=== PATIENT | female | born 1980 | race Caucasian/White ===

== ENCOUNTER 2018-06-29 19:22 | Inpatient (IN) | payer BC, SELFPAY ==
[2018-06-29 22:54] VITALS: BMI 61.7
[2018-06-29] MEDS ORDERED: ONDANSETRON 4 MG/2 ML VIAL IV PRN (23:26)
--- NOTE | 2018-06-29 23:46 | P.HP ---
Certification for Inpatient Patient admitted to: Observation With expected LOS: <2 Midnights Practitioner: I am a practitioner with admitting privileges, knowledge of patient current condition, hospital course, and medical plan of care. Services: Services provided to patient in accordance with Admission requirements found in Title 42 Section 412.3 of the Code of Federal Regulations Patient History Date of Service: 06/29/18 Reason for admission: Abdominal pain History of Present Illness: Ms Yepez is a 37-year-old woman with history of hypertension, diabetes mellitus types 2, obesity, who start about 3 days ago with diffuse abdominal pain which later was localized on right upper quadrant. The pain was associated with nausea but no vomiting. She denied fever or chills. She also denied diarrhea. [facility] be [facility], lab work showed leukocytosis 13.[address] scan abdomen and pelvis showed not acute abnormality. The patient was transferred to our facility for dilated admission due to severe abdominal pain, in order to be evaluated by specialist. Allergies ondansetron [From Zofran] Allergy (Verified 06/29/18 22:33) Itching/Hives/Rash prednisone Allergy (Verified 06/29/18 22:33) Itching/Hives/Rash sulfamethoxazole [From Bactrim] Allergy (Verified 06/29/18 22:33) Hives/Rash trimethoprim [From Bactrim] Allergy (Verified 06/29/18 22:33) Hives/Rash Home medications list reviewed: Yes Home Medications: Levothyroxine [Synthroid] 75 mcg PO [id number] 06/29/18 Lisinopril/Hydrochlorothiazide [Zestoretic 20-25 mg Tablet] 1 tab PO DAILY 06/29 Metformin HCl [Glucophage] 500 mg PO BID 06/29/18 glipiZIDE [Glipizide] 1 tab PO BID 06/29/18 - Past Medical/Surgical History Has patient received pneumonia vaccine in the past: No Diabetic: Yes -: HTN -: DM type 2 -: Hyperthyroidism -: Morbid obesity -: D and C -: Cholecystectomy -: CS -: Injections in the spine - Family History Mother -: Hypertension, Diabetes - Social History Smoking Status: Never smoker Alcohol use: No CD- Drugs: No Caffeine use: Yes Place of Residence: Home Review of Systems 10-point ROS is otherwise unremarkable Physical Examination - Vital Signs Temperature: 97.9 F Blood Pressure: 129/58 Pulse: 79 Respirations: 16 Pulse Ox (%): 99 - Physical Exam General: Alert, In no apparent distress HEENT: Atraumatic, PERRLA, Mucous membr. moist/pink, EOMI, Sclerae nonicteric Neck: Supple, 2+ carotid pulse no bruit, No LAD, Without JVD or thyroid abnormality Respiratory: Clear to auscultation bilaterally, Normal air movement Cardiovascular: Regular rate/rhythm, Normal S1 S2 Gastrointestinal: Normal bowel sounds, Tenderness Musculoskeletal: No tenderness Integumentary: No rashes Neurological: Normal speech, Normal strength at 5/5 x4 extr, Normal tone, Normal affect Lymphatics: No axilla or inguinal lymphadenopathy Assessment and Plan - Problems (Diagnosis) (1) Abdominal pain Current Visit: Yes Status: Acute Qualifiers: Abdominal location: right upper quadrant Qualified Code(s): R10.11 - Right upper quadrant pain (2) Diabetes mellitus Current Visit: Yes Status: Acute Qualifiers: Diabetes mellitus type: type 2 Diabetes mellitus fdc insulin use: without exterminator helper use Diabetes mellitus complication status: with unspecified complications Qualified Code(s): E11.8 - Type 2 diabetes mellitus with unspecified complications (3) Hypertension Current Visit: Yes Status: Acute Qualifiers: Hypertension type: essential hypertension Qualified Code(s): I10 - Essential (primary) hypertension (4) Obesity Current Visit: Yes Status: Acute Qualifiers: Obesity type: unspecified obesity type Obesity classification: unspecified obesity classification Serious obesity comorbidity presence: unspecified whether serious comorbidity present Qualified Code(s): E66.9 - Obesity, unspecified - Plan The patient will be admitted to the hospital under observation due to severe abdominal pain without obvious etiology, will order laboratory work, surgery evaluation, IV fluids and symptomatic medication for pain and nausea. - Advance Directives Does patient have a Living Will: No Does patient have a Durable POA for Healthcare: No - Code Status/Comfort Care Code Status Assessed: Yes Code Status: Full Code
[2018-06-30] MEDS: NA CHLORIDE 0.9% 1,000 ML IV SCH ×3 (00:09→20:26)
[2018-06-30] MEDS: MORPHINE 2 MG/ML SYR IV PRN ×6 (00:10→20:25)
[2018-06-30] MEDS: PROMETHAZINE 25 MG/ML VIAL IV PRN ×4 (00:10→20:25)
[2018-06-30] MEDS: INSULIN -REGULAR HUMAN 50 UNIT/0.5 ML ML SQ SCH ×5 (00:10→21:48)
[2018-06-30 02:07] LABS: Urine Appearance CLEAR; Urine Bilirubin NEGATIVE (NEG); Urine Blood TRACE (NEG); Urine Color YELLOW; Urine Glucose 3+ (NEG); Urine Protein TRACE (NEG); Urine Specific Gravity >=1.030 (1.005-1.030); Urine Urobilinogen 0.2 mg/dL (0.2-1.0)
[2018-06-30 02:11] LABS: Urine Microscopic Reflex ORDER UMIC
[2018-06-30 02:17] LABS: Urine Mucus 1+ /HPF (NONE SEEN)
[2018-06-30 02:18] LABS: Urine Bacteria 20-50 /HPF (<20); Urine Culture Reflex Order REFLEXED; Urine RBC <5 /HPF (NONE SEEN)
[2018-06-30] MEDS ORDERED: PROMETHAZINE 25 MG/ML VIAL IV ONE (03:00)
[2018-06-30 06:06] LABS: Absolute Lymphocytes (CBC) 1.4 K/uL (0.7-4.9); Absolute Neutrophil 11.8 K/uL (1.8-8.0); Basophils % 0.3 % (0-1.3); Eosinophils % 0.1 % (0-4.4); Hematocrit 36.9 % (36.0-45.0); MCH 28.5 pg (27.0-35.0); MCV 85.7 fL (80-100); Monocytes % 6.7 % (3.3-12.3); RBC Red Blood Cell Count 4.31 M/uL (3.86-4.86)
[2018-06-30 06:11] LABS: Albumin 3.4 g/dL (3.4-5.0); Bilirubin Total 0.8 mg/dL (0.2-1.0); Protein, Total 7.5 g/dL (6.4-8.2)
[2018-06-30] MEDS: CEFTRIAXONE/SWI 1gm 1 GM/10 ML SYR IV SCH (09:07)
[2018-06-30] MEDS: HYDRALAZINE HCL 20 MG/ML VIAL IV PRN ×2 (10:34→17:39)
[2018-06-30] MEDS: PANTOPRAZOLE 40MG TABLET PO SCH (12:07)
--- NOTE | 2018-06-30 14:13 | PN ---
Date of Progress Note: 06/30/2018 Subjective: The patient was seen and examined. Chart reviewed and case discussed with RN and Dr. William julian. The patient still reports abdominal pain, no nausea or vomiting. Review of Systems: Negative except as above. Medications: List reviewed. Objective: Vital Signs: Temperature 99.1, heart rate 115, blood pressure 137/80, respirations 16, O 2 95% on room air. General: Awake, alert, and oriented x3, in some mild distress, morbidly obese ill-appearing female. CV: S1, S2. Peripheral pulses present. Regular rate and rhythm. No murmurs. Respiratory: Clear to auscultation bilaterally. No wheezing or stridor. Gastrointestinal: Abdomen is soft. Mild tenderness to palpation in the epigastric region. No rebou nd or guarding. Bowel sounds positive. Extremities: No clubbing, cyanosis, or edema. Neuro: Nonfocal. Laboratory Data: Sodium 132, potassium 4, chloride 103, CO2 23, BUN 10, creatinine 0.8, glucose was 76, calcium 8.7. WBC 14.3, H and H 12.3 and 36.9, platelets 249, neutrophils 82.9%. UA has 20-50 ba cteria, negative nitrite, negative leukocyte esterase, less than 5 wbcs. Urine culture pending. Assessment And Plan: A 37-year-old female with: 1.Generalized abdominal pain, likely secondary to viral or bacterial enteritis. Appreciate Dr. Gustavo galvez's input. We will continue to treat with conservative management. We will advance diet to clear liquids and see if the patient can tolerate liquids before moving on to solids. We will continue to monitor closely. 2.Asymptomatic bacteriuria. We will start on Rocephin. Urine cultures are pending. 3.Diabetes mellitus type 2 without long-term use of insulin with hyperglycemia. We will continue Ac cu-Cheks and sliding scale insulin. 4.Essential hypertension. We will resume home medications as appropriate. 5.Morbid obesity. 6.Hypothyroidism. We will continue Synthroid. 7.Neutrophilic leukocytosis, likely secondary to acute phase reactant are possibly from gastroenteri tis or bacteriuria. 8.We will continue to monitor. Likely discharge in the next 24 to 48 hours. /BLU Voice ID: [id number] Report ID: [id number]
--- NOTE | 2018-06-30 15:43 | CON ---
Date of Consultation: 06/30/2018 Brief History Of Present Illness: The patient is a 37-year-old female with history of hype rtension, diabetes, severe obesity, who started having abdominal pain 2-3 days ago after eating [employer]. She has been eating a fast-food diet quite a bit and she had pain located in the epigast sergio right upper quadrant area. She had nausea and no vomiting. She has had some loose bowel movemen ts as well. She has diffuse abdominal pain. No fever, no chills, and she came to [facility] an d was evaluated at that time in the ER. She had a CT scan of the abdomen and pelvis, which was repor roxanna to have no acute abnormalities. She was transferred to this facility for the abdominal pain. Past Medical History: Hypertension, diabetes, and hypothyroidism, morbid obesity. Past Surgical History: D and C, cholecystectomy, injection to the spine. Allergies: TO ZOFRAN, PREDNISONE, BACTRIM. Home Medications: Include levothyroxine, Zestoretic, Glucophage, and glipizide. Family History: Her mother has hypertension, diabetes. Social History: She denies smoking, alcohol, or recreational drug use. Physical Examination: Vital Signs: At time of my examination, her BMI is 61.7. Her blood pressure was 137/80, pulse 115, respiratory rate 16, temperature 99.1. General: She is awake, alert, oriented. Psychiatric: She is appropriate conversive. HEENT: She is normocephalic. Sclerae icteric. Mucous membranes are moist. Oropharynx is clear. Neck: Supple. No JVD. Chest: Normal expansion and excursion. Cardiovascular: Regular rate and rhythm. Abdomen: Obese. Diffuse tenderness. No focal peritonitis. No rebound. No guarding. Negative Mur phy sign. Negative psoas sign. Extremities: No clubbing, cyanosis, or edema. Skin: Warm and dry. Laboratory Data: Reveals white blood cell count of 14.3, hemoglobin 12.3, hematocrit 36.9, platelet count is 249, neutrophils are 82%. Her sodium of 136, potassium 4.0, chloride 103, carbon dioxide 22 , BUN 10, creatinine 0.8, glucose is 276. Total bilirubin 0.8. AST 43, ALT 44, alkaline phosphatase is 76. UA is essentially -3+ ketones and 20/50 bacteria, glucose 3+. She had a CT scan performed o f the abdomen and pelvis at outside facility. I do not have these records. However, it is reported to me the patient had no acute abnormalities, when I spoke to the ER physician regarding this yesterd ay. Assessment And Plan: This is a 37-year-old female who comes in with signs of gastroenteritis. 1.IV fluid hydration. 2.Antibiotic coverage. 3.Serial abdominal exams. 4.N.p.o. status and advanced clear liquids when patient feels nausea has improved to such she can to lerate liquids. 5.Serial abdominal exams. 6.Review medical records from outside facility when available. Thank you for this interesting consult. NED/BLU Voice ID: [id number] Report ID: [id number]
[2018-06-30] MEDS: glipiZIDE 5 MG TAB PO SCH (16:38)
[2018-06-30] MEDS ORDERED: KETOROLAC 30 MG/ML INJ IV PRN (21:20)
[2018-06-30] MEDS ORDERED: TRAMADOL HCL 50 MG TAB PO PRN (22:20)
[2018-07-01] MEDS: PROMETHAZINE 25 MG/ML VIAL IV PRN ×3 (01:32→20:41)
[2018-07-01] MEDS: MORPHINE 2 MG/ML SYR IV PRN ×6 (01:33→20:40)
[2018-07-01] MEDS: HYDRALAZINE HCL 20 MG/ML VIAL IV PRN ×2 (01:33→13:39)
[2018-07-01] MEDS: NA CHLORIDE 0.9% 1,000 ML IV SCH ×3 (05:21→20:56)
[2018-07-01] MEDS: PANTOPRAZOLE 40MG TABLET PO SCH (05:35)
[2018-07-01] MEDS: LEVOTHYROXINE SOD 0.075 MG TAB PO SCH (05:35)
[2018-07-01] MEDS: INSULIN -REGULAR HUMAN 50 UNIT/0.5 ML ML SQ SCH ×4 (07:30→20:56)
[2018-07-01] MEDS ORDERED: HOME MED 1 EA UNK (Lisinopril/Hydrochlorothiazide [Zestoretic 20-25 Mg Tablet] 1 TAB) PO SCH (09:00)
[2018-07-01] MEDS ORDERED: LISINOPRIL 20 MG TAB PO SCH (09:00)
[2018-07-01] MEDS: glipiZIDE 5 MG TAB PO SCH ×2 (09:12→16:58)
[2018-07-01] MEDS: hydroCHLOROthiazide 25 MG TAB PO SCH (09:12)
[2018-07-01] MEDS: CEFTRIAXONE/SWI 1gm 1 GM/10 ML SYR IV SCH (09:16)
--- NOTE | 2018-07-01 09:20 | P.PN ---
Subjective Date of Service: 07/01/18 Chief Complaint: Abdominal pain Subjective: Improving (Patient continues to improve, but still has some abdominal pain, and occasional vomiting. Her pain is improved though by report , continues to have diarrhea.) Physical Examination - Vital Signs Temperature: 98.0 F Blood Pressure: 172/82 Pulse: 102 Respirations: 18 Pulse Ox (%): 98 - Physical Exam General: Alert, In no apparent distress, Cooperative Respiratory: Clear to auscultation bilaterally Gastrointestinal: Other (soft, mild global TTP, ND) Assessment And Plan - Current Problems (Diagnosis) (1) Enteritis Current Visit: Yes Status: Acute Plan: - continue IV hydration - continue PO liquid diet, advance as tolerated - supportive care - pain control - antiemetics - ambulate - no surgical issues, will sign off for now. (2) Abdominal pain Onset Date: 06/30/18 Current Visit: Yes Status: Acute Qualifiers: Abdominal location: right upper quadrant Qualified Code(s): R10.11 - Right upper quadrant pain
[2018-07-01] MEDS: LISINOPRIL 20 MG TAB PO SCH (16:00)
--- NOTE | 2018-07-01 22:05 | PN ---
Subjective: The patient seen and examined. Chart reviewed and case discussed with RN and Dr. Valerie maldonado. The patient is still having some nausea and vomiting. Abdominal pain is improved, however, not r esolved. Review of Systems: Negative except as above. Medications: List reviewed. Physical Examination: Vital Signs: Temperature 97.4, heart rate 75, blood pressure 205/85, respirations 18, O2 98% on room air. General: Awake, alert, oriented x3. Some mild distress. Ill-appearing female, morbidly obese. CV: S1, S2. No murmurs. Peripheral pulses present. Respiratory: Moving air well bilaterally with no wheezing or stridor. Gastrointestinal: Abdomen is soft, not as distended, still having some mild tenderness to palpation. No rebound or guarding. Bowel sounds are positive. Extremities: No clubbing, cyanosis. The patient does have some pedal edema. Neurologic: Nonfocal. Laboratory Data: Glucose level ranging from 217 to 222. Assessment And Plan: A 37-year-old female with: 1.Generalized abdominal pain, likely secondary to bacterial enteritis or possible viral enteritis. Continue conservative management. The patient unable to tolerate clear liquid diet. We will continu e with IV fluid hydration and antibiotics. 2.Asymptomatic bacteriuria. Continue Rocephin. Urine culture shows mixed chelsy. 3.Morbid obesity. BMI 61.7. 4.Uncontrolled hypertension. We will adjust home medications. 5.Diabetes mellitus type 2 with long-term use of insulin with hyperglycemia. We will adjust sliding scale insulin. We will need to add basal insulin. Check hemoglobin A1c. 6.Hypothyroidism. Continue Synthroid. 7.Gastrointestinal and deep venous thrombosis prophylaxis addressed. SCDs and early persistent ambu lation. Plan: Continue to monitor. Likely discharge in next 24 to 48 hours if the patient able to tolerate diet and symptoms improve. SA/MODL Voice ID: [id number] Report ID: [id number]
[2018-07-02] MEDS: MORPHINE 2 MG/ML SYR IV PRN ×6 (00:36→22:29)
[2018-07-02] MEDS: PROMETHAZINE 25 MG/ML VIAL IV PRN (05:29)
[2018-07-02] MEDS: PANTOPRAZOLE 40MG TABLET PO SCH (05:29)
[2018-07-02] MEDS: LEVOTHYROXINE SOD 0.075 MG TAB PO SCH (05:29)
[2018-07-02 06:11] LABS: Absolute Neutrophil 9.6 K/uL (1.8-8.0); Basophils % 0.5 % (0-1.3); Eosinophils % 1.3 % (0-4.4); Hematocrit 37.2 % (36.0-45.0); Lymphocytes % 21.9 % (15.3-44.8); MCH 27.9 pg (27.0-35.0); MCV 86.3 fL (80-100); MPV 9.9 fL (7.6-11.3); Monocytes % 7.1 % (3.3-12.3); RBC Red Blood Cell Count 4.31 M/uL (3.86-4.86)
[2018-07-02 06:27] LABS: ALT/SGPT 57 U/L (12-78); AST/SGOT 93 U/L (15-37); Albumin 3.1 g/dL (3.4-5.0); Alkaline Phosphatase 69 U/L (45-117); BUN Blood Urea Nitrogen 6 mg/dL (7-18); Bicarbonate 26 mmol/L (21-32); Bilirubin Total 0.6 mg/dL (0.2-1.0); Glucose Level 157 mg/dL (74-106); Magnesium 2.4 mg/dL (1.8-2.4); Phosphorus 2.6 mg/dL (2.5-4.9); Sodium Level 140 mmol/L (136-145)
[2018-07-02] MEDS ORDERED: POTASSIUM CL SA 10 MEQ TAB PO ONE ×2 (06:31→21:00)
[2018-07-02] MEDS: INSULIN -REGULAR HUMAN 50 UNIT/0.5 ML ML SQ SCH ×4 (07:30→21:05)
[2018-07-02] MEDS: CEFTRIAXONE/SWI 1gm 1 GM/10 ML SYR IV SCH (09:00)
[2018-07-02] MEDS: LISINOPRIL 20 MG TAB PO SCH (09:27)
[2018-07-02] MEDS: hydroCHLOROthiazide 25 MG TAB PO SCH (09:28)
[2018-07-02] MEDS: glipiZIDE 5 MG TAB PO SCH ×2 (09:28→17:00)
[2018-07-02] MEDS: NA CHLORIDE 0.9% 1,000 ML IV SCH ×2 (10:55→21:05)
[2018-07-02] MEDS: METOCLOPRAMIDE 10 MG/2mL INJ IV SCH ×2 (10:55→18:06)
[2018-07-02] MEDS: PIPER/TAZO/NS 3.375gm 3.375 GM/100 ML BAG IVPB SCH ×2 (13:47→19:47)
--- NOTE | 2018-07-02 13:50 | RAD REPORT ---
EXAM DESCRIPTION: CTAbdomen Pelvis W Contrast - 07/02/2018 1:34 pm CLINICAL HISTORY: Abdominal pain. abd pain COMPARISON: CT ABD PELVIS W CONTRAST dated 04/07/2011; CTABD PELVIS W CONTRAST dated 02/27/2007 TECHNIQUE: Biphasic CT imaging of the abdomen and pelvis was performed with 100 ml non-ionic IV cont rast. All CT scans are performed using dose optimization technique as appropriate and may include automated exposure control or mA/KV adjustment according to patient size. FINDINGS: The lung bases are clear.Cholecystectomy clips. The liver is diffusely fatty. The spleen, pancreas, adrenal glands and kidneys are within normal limi ts. No bowel obstruction, free air, free fluid or abscess. The appendix is not identified as a discrete structure, however, no secondary findings of appendicitis are identified. No evidence of significan t lymphadenopathy. Moderate lower lumbar degenerative changes. IMPRESSION: No acute intra-abdominal or pelvic finding. Fatty liver.
--- NOTE | 2018-07-02 16:03 | PN ---
Date of Progress Note: 07/02/2018 History: The patient seen and examined. Chart reviewed and case discussed with RN. The patient sti ll having significant amount of abdominal discomfort and not able to tolerate her diet. The patient had another episode of emesis. This was the first since yesterday afternoon. Review of Systems: Negative except as above. Medications: List reviewed. Physical Examination: Vital Signs: Temperature 97.9, heart rate 84, blood pressure 189/85, respiration 20, O2 100% on room air. General: Awake, alert, oriented x3, ill-appearing female, morbidly obese. CV: S1 and S2. Peripheral pulses present. Respiratory: Moving air well bilaterally. No wheezing. Gastrointestinal: Abdomen is soft. No distention. Mild tenderness to palpation, improved. Bowel s ounds present. Extremities: No clubbing, cyanosis, or edema. Neurologic: Nonfocal. Laboratory Data: Sodium 140, potassium 3, chloride 105, CO2 26, BUN 6, creatinine 0.7, glucose 157, calcium 8.2, albumin 3.1. WBC 13.9, H and H 12 and 37.2, platelets 268, neutrophils 69%. Urine cult ure growing mixed chelsy. Assessment And Plan: A 37-year-old female with: 1.Generalized abdominal pain, not improving. 2.Gastroenteritis, likely related to the atrial versus viral etiology. We will adjust IV antibiotic s. The patient is unable to tolerate clear liquid diet. We will obtain a CT scan of the abdomen and pelvis with contrast, may be secondary to diabetic gastroparesis. We will give trial of Reglan and essentially no GI is available. 3.Asymptomatic bacteriuria. Antibiotic adjusted. Urine culture growing mixed chelsy. 4.Morbid obesity, BMI 61.7. 5.Intractable nausea and vomiting. We will give trial of Reglan. 6.Uncontrolled hypertension, likely related to pain as her blood pressures are lower at night. We w ill continue to use hydralazine. 7.Diabetes mellitus type 2 with long-term use of insulin with hyperglycemia. Sliding scale insulin adjusted to aggressive. Blood glucose is better controlled today. Hemoglobin A1c of 9.6%, may need add basal insulin if still uncontrolled. 8.Hypothyroidism. Continue Synthroid. 9.Gastrointestinal and deep venous thrombosis prophylaxes, addressed with SCDs and persistent ambula tion. Plan: Follow with CT abdomen and pelvis. Trial of Reglan. We will continue to monitor closely. SA/MODAna Voice ID: [id number] Report ID: [id number]
[2018-07-03] MEDS: METOCLOPRAMIDE 10 MG/2mL INJ IV SCH ×3 (00:07→12:00)
[2018-07-03] MEDS: PIPER/TAZO/NS 3.375gm 3.375 GM/100 ML BAG IVPB SCH ×2 (02:31→11:00)
[2018-07-03] MEDS: MORPHINE 2 MG/ML SYR IV PRN ×3 (02:37→10:51)
[2018-07-03 06:21] LABS: Absolute Lymphocytes (CBC) 2.6 K/uL (0.7-4.9); Absolute Monocytes 0.9 K/uL (0.1-1.3); Absolute Neutrophil 5.9 K/uL (1.8-8.0); Basophils % 0.6 % (0-1.3); Hematocrit 34.4 % (36.0-45.0); Lymphocytes % 26.9 % (15.3-44.8); MCH 28.5 pg (27.0-35.0); MCV 86.1 fL (80-100); MPV 9.9 fL (7.6-11.3)
[2018-07-03] MEDS: PANTOPRAZOLE 40MG TABLET PO SCH (06:32)
[2018-07-03] MEDS: LEVOTHYROXINE SOD 0.075 MG TAB PO SCH (06:32)
[2018-07-03] MEDS: NA CHLORIDE 0.9% 1,000 ML IV SCH ×2 (06:32→07:45)
[2018-07-03 06:37] LABS: BUN Blood Urea Nitrogen 6 mg/dL (7-18); Bicarbonate 27 mmol/L (21-32); Glucose Level 176 mg/dL (74-106); Sodium Level 140 mmol/L (136-145)
[2018-07-03] MEDS ORDERED: POTASSIUM 25 MEQ EFFERV TAB PO ONE (06:43)
[2018-07-03 09:01] VITALS: TEMP 97.8
[2018-07-03] MEDS: INSULIN -REGULAR HUMAN 50 UNIT/0.5 ML ML SQ SCH ×2 (09:21→12:34)
[2018-07-03] MEDS: glipiZIDE 5 MG TAB PO SCH (09:22)
[2018-07-03] MEDS: hydroCHLOROthiazide 25 MG TAB PO SCH (09:22)
[2018-07-03] MEDS: LISINOPRIL 20 MG TAB PO SCH (09:22)
[2018-07-03] MEDS: PROMETHAZINE 25 MG/ML VIAL IV PRN (10:51)
[2018-07-03 12:33] VITALS: O2SAT 95
[2018-07-03 12:53] VITALS: BP 168/92
--- NOTE | 2018-07-03 20:16 | DS ---
Date of Discharge: 07/03/2018 Consultants: Dr. Johnson with General Surgery. Admitting Diagnoses: 1.Acute abdominal pain. 2.Enteritis. Discharge Diagnoses: 1.Acute abdominal pain, generalized, improved. 2.Gastroenteritis, likely viral versus bacterial. 3.Diabetic gastroparesis. 4.Asymptomatic bacteriuria, treated with antibiotics. 5.Morbid obesity, BMI 51.9. 6.Intractable nausea and vomiting, resolved. 7.Uncontrolled hypertension. 8.Diabetes mellitus type 2 with long-term use of insulin with hyperglycemia, uncontrolled. Hemoglob in A1c 9.6%. 9.Hypothyroidism, on Synthroid. Hospital Course: The patient is a morbidly obese 37-year-old female with past medical history of hyp ertension, diabetes, hypothyroidism, was directly admitted from [facility] for abdominal pain. She wa s found to have enteritis. CT scan was negative. Her test was also negative. She was see n by Dr. Johnson of General Surgery, recommended conservative treatment. The patient was treated wit h IV antibiotics, IV fluids, and antiemetics. However, the patient's condition did not improve signi ficantly. She was unable to tolerate her diet. Her diabetes and high blood pressure were uncontroll ed. Hemoglobin A1c was 9.6%. She was then started on Reglan for suspicion of diabetic gastroparesis . The patient had significant improvement in her symptoms. She was able to tolerate her diet. The patient's blood pressure medications were adjusted. The patient was then cleared for discharge. The patient will need to followup with her primary care physician in 2-3 days to establish care with GI in 1-2 weeks for further evaluation of her diabetic gastroparesis. Return to ER for worsening condit ion. The patient was extensively counseled regarding holding metformin for 48 hours after IV contras t. Diet: [place] diet. Activity: As tolerated. Medications: As per medication reconciliation list. The patient understands side effects of Reglan and needs to be tapered off as quickly as possible. Once she has better control of her diabetes, her metformin and glipizide dose were also increased. Physical Examination: General: Awake, alert, oriented, morbidly obese female. CV: S1, S2. No murmurs. Respiratory: Moving air well bilaterally. Abdomen: Abdomen is soft, nontender, nondistended. Positive bowel sounds. Obese. Extremities: No clubbing, cyanosis, or edema. Neurologic: Nonfocal. Total time spent discharging the patient was 37 minutes. The patient also recommended to follow up w ith a bariatric surgeon for gastric bypass as a means for weight loss. She has significant morbidity including morbidity and mortality with her current BMI. /BLU Voice ID: [id number] Report ID: [id number]
== END 2018-07-03 12:50 | disposition home or self-care (01) | DRG 392 ==
LOC: 2ND 21:57 → OBSVTOIN 07-01 11:25
PROVIDERS: ADMIT Internal Medicine; ATTEND Internal Medicine
DX: A08.4 Viral intestinal infection, unspecified (principal); Z68.44 Body mass index [BMI] 60.0-69.9, adult; E11.43 Type 2 diabetes mellitus with diabetic autonomic (poly)neuropathy; E11.65 Type 2 diabetes mellitus with hyperglycemia; K31.84 Gastroparesis; E03.9 Hypothyroidism, unspecified; R82.71 Bacteriuria; I10 Essential (primary) hypertension; Z79.4 Long term (current) use of insulin; E66.01 Morbid (severe) obesity due to excess calories; Z88.2 Allergy status to sulfonamides
CPT/HCPCS: 36415; 74177; 80048; 80053; 81003; 81015; 81025; 82962; 83036; 83735; 84100; 84132; 85025; 87086; 87088; G0378; J0360; J0696; J2270; J2543; J2550; J2765; J7030; Q9967

== ENCOUNTER 2024-08-03 10:32 | Emergency (ER) | payer OTHER ==
--- OUTSIDE RECORDS SUMMARY | 2024-08-03 10:41 | XMS REPORT | Continuity of Care Document ---
Author Name Unknown Address [address] [facility] [address] [place] [address] [facility] thconnect Address [address] [facility]. 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 Name Role Phone [facility], [facility] Care Physician Unavailable KATHLEEN WILD Attending Clinician Unavailable ANGÉLICA DIGGS Attending Clinician Unavailable DALLAS AGUILAR Attending Clinician Unavailable Doctor Unassigned, [place] Attending Clinician U VERN King Attending Clinician Vern Fernando MD Attending Clinician [phone] Gris Gruber Attending Clinician [phone] GRIS SANCHEZ Attending Clinician Unavailable BRISSA BETANCUR Attending Clinician Unavailable POLO PATTERSON Attending Clinician Unavailable KATHLEEN WILD Admitting Clinician Unavailable BRISSA AGUILAR Admitting Clinician Unavailable VERN SEVERINO Admitting Clinician Rosario varela Payers Payer Name Policy Type Policy Number Effective Date Expirati on Date Source ADRI JONESO [id number] 2021 00:00:00 Problems Condition Name Condition Details Condition Category Status Onset Date Resolution Date Last Treatment Date Treating Clinician Comments Source No known active problems No known active problems Disease [facility] Allergies, Adverse Reactions, Alerts Allergy Name Allergy Type Status Severity Reaction(s) Onset Date Inactive Date Treating Clinician Comments Source predniso ne Propensi ty to adverse reaction to drug Active 6-27 00:00: 00 Cosmo Martin Ezequiel GABAPENT IN DRUG INGREDI Active High Other-Cmnt 0 3-19 00:00: 00 [facility] TRAMADOL DRUG INGREDI Active High Other-Cmnt 3-19 00:00: 00 [facility] Gabapent in - Oral Propensi ty to adverse reaction to drug Active 1-07 00:00: 00 Cosmo Nieves n Propensi ty to adverse reaction to drug Active 6-30 00:00: 00 Cosmo Nieves Bactrim - Oral Propensi ty to adverse reaction to drug Active 0 3-18 00:00: 00 Cosmo Nieves Sulfamet hoxazole -Trimeth oprim Propensi ty to adverse reaction s Active Swelling 2020-08 0-27 00:00: 00 [facility] Predniso ne Propensi ty to adverse reaction s Active Rash 2020-08 0-27 00:00: 00 [facility] Ketorola c Propensi ty to adverse reaction s Active Other - See comments 2020-08 0-27 00:00: 00 zachary [facility] Ondanset fabiano Hcl Propensi ty to adverse reaction s Active Hives 2020-08 0-27 00:00: 00 [facility] SULFAMET HOXAZOLE -TRIMETH OPRIM DRUG Active Swelling 2021-1 0-27 00:00: 00 [facility] PREDNISO NE DRUG INGREDI Active Rash 2020-08 0 00:00: 00 [facility] KETOROLA C DRUG INGREDI Active Other-Cmnt 2020-08 00:00: 00 [facility] ONDANSET FABIANO HCL DRUG INGREDI Active Hives 2020-08 0 00:00: 00 [facility] Glimepir michelle Propensi ty to adverse reaction to drug Inactiv e 09-29 00:00: 00 Cosmo Brooks (ondanse andrea hcl) (Not Checked) Propensi ty to adverse reaction to drug Inactiv e 01-24 00:00: 00 Cosmo Nieves NO KNOWN ALLERGIE S Drug Class Active [facility] Social History Social Habit Start Date Stop Date Quantity Comments Source [facility] to SARS-CoV-2 (event) 2022-05-29 00:00:00 2022-06-08 12:00:00 Not sure [facility] Sex Assigned At 1980 00:00:00 1980 00:00:00 [facility] Smoking Status Start Date Stop Date Source Tobacco smoking consumption unknown [facility] Medications Ordered Medication Name Filled Medication Name Start Date Stop Date Current Medication? Ordering Clinician Indication Dosage Frequency Signature (SIG) Comments Components Source metformin 1,000 mg tablet 2023-08 00:00: 00 Yes 1mg Cosmo Nieves metoprolol tartrate 100 mg tablet 2023-08 00:00: 00 Yes mg Cosmo Nieves tizanidine 4 mg tablet 2023-08 00:00: 00 Yes mg Cosmo Nieves glipizide 10 mg tablet 2023-08 00:00: 00 Yes mg Cosmo Nieves hydrochloro thiazide 25 mg tablet 2023-08 00:00: 00 Yes mg Cosmo Nieves Januvia 100 mg tablet 2023-08 00:00: 00 Yes mg Cosmo Nieves levothyroxi ne 75 mcg tablet 2023-08 00:00: 00 Yes mcg Cosmo Nieves buspirone 5 mg tablet 2023-08 2-18 00:00: 00 Yes 1mg Cosmo Nieves metoprolol tartrate 100 mg tablet 2023-08 0- 00:00: 00 Yes mg Cosmo Nieves glipizide 10 mg tablet 2023-08 0-25 00:00: 00 Yes mg Cosmo Nieves Januvia 100 mg tablet 2023-08 0-18 00:00: 00 Yes mg Cosmo Nieves metformin 1,000 mg tablet - 00:00: 00 Yes 1mg Cosmo Nieves metoprolol tartrate 100 mg tablet 02-09 00:00: 00 Yes mg Cosmo Nieves tizanidine 4 mg tablet 02-09 00:00: 00 Yes mg Cosmo Nieves glipizide 10 mg tablet 02-09 00:00: 00 Yes mg Cosmo Nieves hydrochloro thiazide 25 mg tablet 02-09 00:00: 00 Yes mg Cosmo Nieves Januvia 100 mg tablet 02-09 00:00: 00 Yes mg Cosmo Nieves levothyroxi ne 75 mcg tablet 02-09 00:00: 00 Yes mcg Cosmo Nieves Januvia 100 mg tablet 01-17 00:00: 00 Yes mg Cosmo Nieves metoprolol tartrate 100 mg tablet 01-12 00:00: 00 Yes mg Cosmo Nieves tizanidine 4 mg tablet 30 00:00: 00 Yes mg Cosmo Nieves glipizide 10 mg tablet -30 00:00: 00 Yes mg Cosmo Nieves levothyroxi ne 75 mcg tablet -30 00:00: 00 Yes mcg Cosmo Nieves metformin 1,000 mg tablet 5- 00:00: 00 Yes mg Cosmo Nieves CEPHALEXIN 500 MG 4-15 00:00: 00 Yes Cosmo Nieves HYDROCODONE -ACETAMIN 7.5-325 2023-0 4-02 00:00: 00 Yes Cosmo Nieves AZITHROMYCI N 250 MG 0 3-05 00:00: 00 Yes Cosmo Nieves PROMETHAZIN E-DM 6.25-15 MG/5ML 0 3-05 00:00: 00 Yes Cosmo Nieves METOCLOPRAM MICHELLE 5 MG 0 2-26 00:00: 00 Yes Cosmo Nieves CEPHALEXIN 500 MG CAPSULE 0 2-13 00:00: 00 Yes 500 Cosmo Nieves TAKE 1 TABLET BY MOUTH EVERY 6 HOURS NEEDED FOR PAIN FOR 15 DAYS 0 2-13 00:00: 00 Yes Cosmo Nieves TAKE 1 TABLET BY MOUTH EVERY 6 HOURS NEEDED FOR PAIN 0 1-30 00:00: 00 Yes Cosmo Nieves TAKE 1 TABLET BY MOUTH TWICE DAILY 0 1-10 00:00: 00 Yes 10 Cosmo Nieves TAKE 1 TABLET DAILY. 0 -10 00:00: 00 Yes 25 Cosmo Nieves TAKE 1 TABLET BY MOUTH DAILY 0 -10 00:00: 00 Yes 75 Cosmo Nieves TAKE 1 TABLET BY MOUTH TWICE DAILY 0 - 00:00: 00 Yes 100 Cosmo Nieves TAKE 1 TABLET EVERY 8 HOURS NEEDED FOR MUSCLE SPASM. 0 -10 00:00: 00 Yes 4 Cosmo Nieves TAKE 1 TABLET DAILY. 0 -10 00:00: 00 Yes 100 Cosmo Nieves TAKE 1 TABLET BY MOUTH EVERY 6 HOURS NEEDED FOR PAIN 0 1-09 00:00: 00 Yes Cosmo Nieves TAKE 1 TABLET BY MOUTH TWICE DAILY 0 1-04 00:00: 00 12-27 00:00 :00 No 1000 Cosmo Nieves TAKE 1 TABLET BY MOUTH TWICE DAILY 0 1-04 00:00: 00 12-27 00:00 :00 No 10 Cosmo Nieves TAKE 1 TABLET BY MOUTH TWICE DAILY 2022-08 2-11 00:00: 00 Yes Cosmo Nieves TAKE 1 TABLET BY MOUTH TWICE DAILY 2022-08 2- 00:00: 00 Yes 10 Cosmo Nieves TAKE 1 CAPSULE BY MOUTH EVERY 12 HOURS FOR 10 DAYS 2022-08 2-05 00:00: 00 Yes Cosmo Nieves HYDROCODONE -ACETAMIN 7.5-325 2022-08 0-31 00:00: 00 Yes Cosmo Nieves LEVOTHYROXI NE 75 MCG 2022-08 0-11 00:00: 00 Yes 75 Cosmo Nieves TAKE 1 TABLET BY MOUTH ONCE DAILY 2022-08 0-11 00:00: 00 12-27 00:00 :00 No 10 Cosmo Nieves TAKE 1 TABLET DAILY. 2022-08 0-11 00:00: 00 12-27 00:00 :00 No 20 Cosmo Nieves TAKE 1 TABLET BY MOUTH TWICE DAILY 2022-08 0-06 00:00: 00 12-27 00:00 :00 No 1000 Cosmo Nieves TAKE 1 TABLET BY MOUTH TWICE DAILY 2022-08 0-06 00:00: 00 12-27 00:00 :00 No 10 Cosmo Nieves TAKE 1 TABLET BY MOUTH DAILY 2022-08 0- 00:00: 00 12-27 00:00 :00 No 75 Cosmo Nieves LEVOTHYROXI NE 75 MCG 9- 00:00: 00 Yes 75 Cosmo Nieves HYDROCODONE -ACETAMIN 10-325 MG 9-06 00:00: 00 Yes Cosmo Nieves TAKE 1 TABLET BY MOUTH EVERY 4 TO 6 HOURS FOR 7 DAYS NEEDED 8-29 00:00: 00 Yes Cosmo Nieves TAKE 1 TABLET BY MOUTH TWICE DAILY 8-15 00:00: 00 Yes Cosmo Nieves TAKE 1 TABLET BY MOUTH TWICE DAILY 8-15 00:00: 00 Yes Cosmo Nieves TIZANIDINE HCL 4 MG 8-15 00:00: 00 Yes Cosmo Nieves JANUVIA 100 MG 8-15 00:00: 00 Yes Cosmo Nieves TAKE 1 TABLET BY MOUTH TWICE DAILY 8-15 00:00: 00 12-27 00:00 :00 No 10 Cosmo Nieves TAKE 1 TABLET BY MOUTH DAILY 8-15 00:00: 00 12-27 00:00 :00 No 75 Cosmo Nieves TAKE 1 TABLET DAILY. 8-15 00:00: 00 12-27 00:00 :00 No 25 Cosmoisaias Nieves APPLY TO WOUNDS 5 MINS BEFORE WOUND CARE DIRECTED 718 00:00: 00 Yes Cosmo Nieves TAKE 1 TABLET BY MOUTH DAILY 0 7-10 00:00: 00 Yes Cosmo Nieves METOPROLOL TARTRATE 100 MG 2022-0 7-10 00:00: 00 Yes Cosmo Nieves METFORMIN HCL 1,000 MG 2022-0 7-10 00:00: 00 Yes Cosmo Nieves TAKE 1 TABLET BY MOUTH TWICE DAILY 2022-0 7-10 00:00: 00 05-14 00:00 :00 No 10 Cosmo Nieves HYDROCODONE -ACETAMIN 10-325 MG 0 7-03 00:00: 00 Yes 19794 Cosmo Nieves APPLY A NICKEL THICK LAYER TO WOUND EDGE TO EDGE ONCE A DAY 2022-0 6-20 00:00: 00 Yes Cosmo Nieves TAKE 1 TABLET BY MOUTH TWICE DAILY 0 6-05 00:00: 00 Yes Cosmo Nieves SODIUM CHLORIDE 0.9% IRRIG. 0 6-02 00:00: 00 Yes Cosmo Nieves TAKE ONE CAPSULE BY MOUTH EVERY DAY FOR 7 DAYS 0 6-02 00:00: 00 Yes Cosmo Nieves APLY THIN LAYER TO WOUND EVERY DAY DIRECTED 2022-0 5-15 00:00: 00 Yes Cosmo Nieves APPLY TO WOUNDS 5 MINS BEFORE WOUND CARE DIRECTED 0 5-15 00:00: 00 Yes Cosmo Nieves CEPHALEXIN 500 MG CAPSULE 0 5-15 00:00: 00 Yes Cosmo Nieves SILVER SULFADIAZIN E 1% CREAM 2022-0 5-04 00:00: 00 Yes Cosmo Nieves HYDROCODONE -ACETAMIN 10-325 MG 2022-0 5-01 00:00: 00 Yes Cosmo Nieves CEPHALEXIN 500 MG CAPSULE 0 5-01 00:00: 00 Yes Cosmo Nieves TAKE 1 TABLET BY MOUTH EVERY 4 TO 6 HOURS FOR 7 DAYS NEEDED 2022-0 4-21 00:00: 00 Yes Cosmo Nieves HYDROCODONE -ACETAMIN 10-325 MG 2022-0 4-12 00:00: 00 Yes Cosmo Nieves METFORMIN HCL 1,000 MG 2022-0 1-08 00:00: 00 Yes Cosmo Nieves LEVOTHYROXI NE 75 MCG 2022-0 1-07 00:00: 00 Yes Cosmo Nivees TIZANIDINE HCL 4 MG 08-22 00:00: 00 Yes Cosmo Nieves TAKE 1 TABLET TWICE DAILY. 08-22 00:00: 00 12-27 00:00 :00 No 100 Cosmo Nieves TAKE 1 TABLET DAILY. 08-22 00:00: 00 12-27 00:00 :00 No 25 Cosmo Nieves TAKE 1 TABLET DAILY. 08-22 00:00: 00 12-27 00:00 :00 No 100 Cosmo Nieves TAKE 1 TABLET BY MOUTH TWICE A DAY 08-22 00:00: 00 12-27 00:00 :00 No 10 Cosmo Nieves TAKE 1 TABLET DAILY. 2021-08 00:00: 00 No TAKE 1 TABLET DAILY. 2021-08 00:00: 00 12-27 00:00 :00 No 25 Cosmo Nieves ACETAMINOPH EN-COD #3 2021-08 00:00: 00 Yes [id number] Cosmo Nieves TAKE 1 TABLET BY MOUTH DAILY 04-14 00:00: 00 Yes Cosmo Nieves TAKE 1 TABLET BY MOUTH DAILY 04-14 00:00: 00 No TIZANIDINE HCL 4 MG TABLET 04-10 00:00: 00 Yes Cosmo Nieves TIZANIDINE HCL 4 MG TABLET 04-10 00:00: 00 No METFORMIN HCL 1,000 MG 04-08 00:00: 00 Yes 1000 Cosmo Nieves TAKE 1 TABLET BY MOUTH DAILY 04-08 00:00: 00 Yes Cosmo Nieves METOPROLOL TARTRATE 100 MG 04-08 00:00: 00 Yes 100 Cosmo Nieves TAKE 1 TABLET BY MOUTH TWICE DAILY 04-08 00:00: 00 Yes Cosmo Nieves TAKE 1 TABLET BY MOUTH DAILY 04-08 00:00: 00 Yes Cosmo Nieves &lt 03-10 00:00: 00 Yes 4 Cosmo Nieves TAKE 1 TABLET BY MOUTH EVERY DAY 03-10 00:00: 00 Yes 750 Cosmo Nieves TAKE 1 TABLET BY MOUTH DAILY 03-10 00:00: 00 Yes 75 Cosmo Nieves &lt 03-10 00:00: 00 No 4 TAKE 1 TABLET BY MOUTH EVERY DAY 03-10 00:00: 00 No 750 TAKE 1 TABLET BY MOUTH DAILY 03-10 00:00: 00 No 75 &lt 03-10 00:00: 00 No 4 TAKE 1 TABLET BY MOUTH EVERY DAY 03-10 00:00: 00 No 750 TAKE 1 TABLET BY MOUTH DAILY 03-10 00:00: 00 No 75 TAKE 1 TABLET BY MOUTH TWICE DAILY 03-06 00:00: 00 Yes 10 Cosmo Nieves TAKE 1 TABLET BY MOUTH TWICE DAILY 03-06 00:00: 00 No 10 TAKE 1 TABLET BY MOUTH TWICE DAILY 03-06 00:00: 00 No 10 Januvia 100 mg tablet 10-31 00:00: 00 Yes 1mg Cosmo Nieves TAKE 1 TABLET DAILY. 10-31 00:00: 00 Yes Cosmo Nieves metoprolol tartrate 100 mg tablet 10-31 00:00: 00 Yes 1mg Cosmo Nieves metformin 1,000 mg tablet 10-31 00:00: 00 Yes 1mg Cosmo Nieves glipizide 10 mg tablet 10-31 00:00: 00 Yes 1mg Cosmo Nieves tizanidine 4 mg tablet 10-31 00:00: 00 Yes 1mg Cosmo Nieves levothyroxi ne 75 mcg tablet 10-31 00:00: 00 Yes 1mcg Cosmo Nieves Dose Unknown 10-31 00:00: 00 Yes Cosmo Nieves Januvia 100 mg tablet 10-31 00:00: 00 No 1mg hydrochloro thiazide 25 mg tablet 18 00:00: 00 No 1mg metoprolol tartrate 100 mg tablet 18 00:00: 00 No 1mg metformin 1,000 mg tablet -18 00:00: 00 No 1mg glipizide 10 mg tablet 18 00:00: 00 No 1mg tizanidine 4 mg tablet 18 00:00: 00 No 1mg levothyroxi ne 75 mcg tablet 10-31 00:00: 00 No 1mcg Dose Unknown 10-31 00:00: 00 No Januvia 100 mg tablet 10-31 00:00: 00 No 1mg TAKE 1 TABLET DAILY. 10-31 00:00: 00 No metoprolol tartrate 100 mg tablet 10-31 00:00: 00 No 1mg metformin 1,000 mg tablet 10-31 00:00: 00 No 1mg glipizide 10 mg tablet 10-31 00:00: 00 No 1mg tizanidine 4 mg tablet 10-31 00:00: 00 No 1mg levothyroxi ne 75 mcg tablet 10-31 00:00: 00 No 1mcg Dose Unknown 10-31 00:00: 00 No LEUCOVORIN CALCIUM 5 MG 2- 00:00: 00 Yes 5 Cosmo Nieves TAKE 6 TABLETS BY MOUTH 1 TIME A WEEK 2- 00:00: 00 Yes Cosmo Nieves amoxicillin 500 mg tablet - 00:00: 00 Yes 1mg Cosmo Nieves amoxicillin 500 mg tablet - 00:00: 00 No 1mg amoxicillin 500 mg tablet - 00:00: 00 No 1mg levofloxaci n 750 mg tablet 1- 00:00: 00 Yes 1mg Cosmo Nieves levofloxaci n 750 mg tablet - 00:00: 00 No 1mg levofloxaci n 750 mg tablet 1- 00:00: 00 No 1mg Januvia 100 mg tablet 2020-08 2- 00:00: 00 Yes 1mg Cosmo Nieves TAKE 1 TABLET DAILY. 2020-08 2- 00:00: 00 Yes Cosmo Nieves metoprolol tartrate 100 mg tablet 2020-08 2- 00:00: 00 Yes 1mg Cosmo Nieves metformin 1,000 mg tablet 2020-08 00:00: 00 Yes 1mg Cosmo Nieves glipizide 10 mg tablet 2020-08 2- 00:00: 00 Yes 1mg Cosmo Nieves tizanidine 4 mg tablet 2020-08 2- 00:00: 00 Yes 1mg Cosmo Nieves levothyroxi ne 75 mcg tablet 2020-08 2- 00:00: 00 Yes 1mcg Cosmo Nieves Januvia 100 mg tablet 2020-08 2- 00:00: 00 No 1mg hydrochloro thiazide 25 mg tablet 2020-08 2- 00:00: 00 No 1mg metoprolol tartrate 100 mg tablet 2020-08 2- 00:00: 00 No 1mg metformin 1,000 mg tablet 2020-08 2- 00:00: 00 No 1mg glipizide 10 mg tablet 2020-08 2- 00:00: 00 No 1mg tizanidine 4 mg tablet 2020-08 2- 00:00: 00 No 1mg levothyroxi ne 75 mcg tablet 2020-08 2- 00:00: 00 No 1mcg Januvia 100 mg tablet 2020-08 2 00:00: 00 No 1mg TAKE 1 TABLET DAILY. 2020-08 2- 00:00: 00 No metoprolol tartrate 100 mg tablet 2020-08 2- 00:00: 00 No 1mg metformin 1,000 mg tablet 2020-08 2- 00:00: 00 No 1mg glipizide 10 mg tablet 2020-08 2- 00:00: 00 No 1mg tizanidine 4 mg tablet 2020-08 2 00:00: 00 No 1mg levothyroxi ne 75 mcg tablet 2020-08 2 00:00: 00 No 1mcg TAKE 1 TABLET DAILY. 2020-08 00:00: 00 Yes Cosmo Nieves metoprolol tartrate 100 mg tablet 2020-08 00:00: 00 Yes 1mg Cosmo Nieves metformin 1,000 mg tablet 2020-08 00:00: 00 Yes 1mg Cosmo Nieves glipizide 10 mg tablet 2020-08 00:00: 00 Yes 1mg Cosmo Nieves tizanidine 4 mg tablet 2020-08 00:00: 00 Yes 1mg Cosmo Nieves metformin 1,000 mg tablet 2020-08 00:00: 00 No 1mg glipizide 10 mg tablet 2020-08 00:00: 00 No 1mg tizanidine 4 mg tablet 2020-08 00:00: 00 No 1mg TAKE 1 TABLET DAILY. 2020-08 00:00: 00 No metoprolol tartrate 100 mg tablet 2020-08 00:00: 00 No 1mg metformin 1,000 mg tablet 2020-08 00:00: 00 No 1mg glipizide 10 mg tablet 2020-08 00:00: 00 No 1mg tizanidine 4 mg tablet 2020-08 00:00: 00 No 1mg hydrochloro thiazide 25 mg tablet 2020-08 00:00: 00 No 1mg metoprolol tartrate 100 mg tablet 2020-08 00:00: 00 No 1mg Januvia 100 mg tablet 2020-08 00:00: 00 Yes 1mg Cosmo Nieves Januvia 100 mg tablet 2020-08 00:00: 00 No 1mg Januvia 100 mg tablet 2020-08 00:00: 00 No 1mg tc 99m-sulfur colloid oral solution 1 millicurie 2020-08 18:30: 00 07-04 14:20 :00 No [id number] 1mCi 1 millicurie , Oral, ONCE, 1 dose, On Wed07/04/21 at 1230, Routine [facility] NaCl 0.9% (NS) bolus infusion 1,000 mL 2020-08 18:30: 00 06-11 18:21 :00 No 1000mL at 999 mL/hr, 1,000 mL, IV Infusion, ONCE, 1 dose, On Wed06/11/21 at 1330, STAT [facility] morpHINE injection 4 mg 2020-08 18:15: 00 06-11 17:17 :00 No 4mg 4 mg, Slow IV Push, ONCE, 1 dose, On Wed06/11/21 at 1315, STAT [facility] proMETHazin e (PHENERGAN) 25 mg in NaCl 0.9% (NS) 50 mL piggyback 2020-08 17:30: 00 06-11 17:30 :00 No 25mg 25 mg, IV Piggyback, ONCE, 1 dose, On Wed06/11/21 at 1230, 50 mL [facility] metoclopram michelle HCl (REGLAN) injection 10 mg 2020-08 16:45: 00 06-11 15:39 :00 No 10mg 10 mg, Slow IV Push, ONCE, 1 dose, On Wed06/11/21 at 1145, ALIREZA [facility] No known medications 2020-08 10:18: 39 No [facility] Januvia 100 mg tablet 2020-08 00:00: 00 Yes 1mg Cosmo Nieves Januvia 100 mg tablet 2020-08 00:00: 00 No 1mg Januvia 100 mg tablet 2020-08 00:00: 00 No 1mg Januvia 100 mg tablet 04-24 00:00: 00 Yes 1mg Cosmo Nieves Januvia 100 mg tablet 04-24 00:00: 00 No 1mg Januvia 100 mg tablet 04-24 00:00: 00 No 1mg TAKE 1 TABLET DAILY. 04-14 00:00: 00 Yes Cosmo Nieves metoprolol tartrate 100 mg tablet 04-14 00:00: 00 Yes 1mg Cosmo Nieves metformin 1,000 mg tablet 04-14 00:00: 00 Yes 1mg Cosmo Nieves glipizide 10 mg tablet 04-14 00:00: 00 Yes 1mg Cosmo Nieves tizanidine 4 mg tablet 04-14 00:00: 00 Yes 1mg Cosmo Nieves levothyroxi ne 75 mcg tablet 04-14 00:00: 00 Yes 1mcg oCsmo Nieves TAKE 1 TABLET DAILY. 04-14 00:00: 00 No metoprolol tartrate 100 mg tablet 04-14 00:00: 00 No 1mg metformin 1,000 mg tablet 04-14 00:00: 00 No 1mg glipizide 10 mg tablet 04-14 00:00: 00 No 1mg tizanidine 4 mg tablet 04-14 00:00: 00 No 1mg levothyroxi ne 75 mcg tablet 04-14 00:00: 00 No 1mcg hydrochloro thiazide 25 mg tablet 04-14 00:00: 00 No 1mg metoprolol tartrate 100 mg tablet 04-14 00:00: 00 No 1mg metformin 1,000 mg tablet 04-14 00:00: 00 No 1mg glipizide 10 mg tablet 04-14 00:00: 00 No 1mg tizanidine 4 mg tablet 04-14 00:00: 00 No 1mg levothyroxi ne 75 mcg tablet 04-14 00:00: 00 No 1mcg hydrochloro thiazide 25 mg tablet 01-09 00:00: 00 Yes 1mg Cosmo Nieves metoprolol tartrate 100 mg tablet 01-09 00:00: 00 Yes 1mg Cosmo Nieves metformin 1,000 mg tablet 01-09 00:00: 00 Yes 1mg Cosmo Nieves glipizide 10 mg tablet 01-09 00:00: 00 Yes 1mg Cosmo Nieves tizanidine 4 mg tablet 01-09 00:00: 00 Yes 1mg Cosmo Nieves levothyroxi ne 75 mcg tablet 01-09 00:00: 00 Yes 1mcg Cosmo Nieves hydrochloro thiazide 25 mg tablet 01-09 00:00: 00 No 1mg metoprolol tartrate 100 mg tablet 01-09 00:00: 00 No 1mg metformin 1,000 mg tablet 01-09 00:00: 00 No 1mg glipizide 10 mg tablet 01-09 00:00: 00 No 1mg tizanidine 4 mg tablet 01-09 00:00: 00 No 1mg levothyroxi ne 75 mcg tablet 01-09 00:00: 00 No 1mcg hydrochloro thiazide 25 mg tablet 01-09 00:00: 00 No 1mg metoprolol tartrate 100 mg tablet 01-09 00:00: 00 No 1mg metformin 1,000 mg tablet 01-09 00:00: 00 No 1mg glipizide 10 mg tablet 01-09 00:00: 00 No 1mg tizanidine 4 mg tablet 01-09 00:00: 00 No 1mg levothyroxi ne 75 mcg tablet 01-09 00:00: 00 No 1mcg metformin 500 mg tablet 10-02 00:00: 00 Yes 1mg Cosmo Nieves hydrochloro thiazide 25 mg tablet 10-02 00:00: 00 Yes 1mg Cosmo Nieves metoprolol tartrate 100 mg tablet 10-02 00:00: 00 Yes 1mg Cosmo Nieves metformin 1,000 mg tablet 10-02 00:00: 00 Yes 1mg Cosmo Nieves glipizide 10 mg tablet 10-02 00:00: 00 Yes 1mg Cosmo Nieves tizanidine 4 mg tablet 10-02 00:00: 00 Yes 1mg Cosmo Nieves levothyroxi ne 75 mcg tablet 10-02 00:00: 00 Yes 1mcg Cosmo Nieves metformin 500 mg tablet 10-02 00:00: 00 No 1mg hydrochloro thiazide 25 mg tablet 10-02 00:00: 00 No 1mg metoprolol tartrate 100 mg tablet 10-02 00:00: 00 No 1mg metformin 1,000 mg tablet 10-02 00:00: 00 No 1mg glipizide 10 mg tablet 10-02 00:00: 00 No 1mg tizanidine 4 mg tablet 2 00:00: 00 No 1mg levothyroxi ne 75 mcg tablet 10-02 00:00: 00 No 1mcg metformin 500 mg tablet 10-02 00:00: 00 No 1mg hydrochloro thiazide 25 mg tablet 10-02 00:00: 00 No 1mg metoprolol tartrate 100 mg tablet 10-02 00:00: 00 No 1mg metformin 1,000 mg tablet 10-02 00:00: 00 No 1mg glipizide 10 mg tablet 10-02 00:00: 00 No 1mg tizanidine 4 mg tablet 10-02 00:00: 00 No 1mg levothyroxi ne 75 mcg tablet 10-02 00:00: 00 No 1mcg metformin 500 mg tablet 2019-08 00:00: 00 Yes 1mg Cosmo Nieves metformin 500 mg tablet 2019-08 00:00: 00 No 1mg metformin 500 mg tablet 2019-08 00:00: 00 No 1mg levothyroxi ne 75 mcg tablet 2019-08 00:00: 00 Yes 1mcg Cosmo Nieves levothyroxi ne 75 mcg tablet 2019-08 00:00: 00 No 1mcg levothyroxi ne 75 mcg tablet 2019-08 00:00: 00 No 1mcg hydrochloro thiazide 25 mg tablet 2019-08 00:00: 00 Yes 1mg Cosmo Nieves metoprolol tartrate 100 mg tablet 2019-08 00:00: 00 Yes 1mg Cosmo Nieves metformin 1,000 mg tablet 2019-08 00:00: 00 Yes 1mg Cosmo Nieves glipizide 10 mg tablet 2019-08 00:00: 00 Yes 1mg Cosmo Nieves tizanidine 4 mg tablet 2019-08 00:00: 00 Yes 1mg Cosmo Nieves hydrochloro thiazide 25 mg tablet 2019-08 00:00: 00 No 1mg metoprolol tartrate 100 mg tablet 2019-08 00:00: 00 No 1mg metformin 1,000 mg tablet 2019-08 00:00: 00 No 1mg glipizide 10 mg tablet 2019-08 00:00: 00 No 1mg tizanidine 4 mg tablet 2019-08 00:00: 00 No 1mg hydrochloro thiazide 25 mg tablet 2019-08 00:00: 00 No 1mg metoprolol tartrate 100 mg tablet 2019-08 00:00: 00 No 1mg metformin 1,000 mg tablet 2019-08 00:00: 00 No 1mg glipizide 10 mg tablet 2019-08 00:00: 00 No 1mg tizanidine 4 mg tablet 2019-08 00:00: 00 No 1mg hydrochloro thiazide 25 mg tablet 03-29 00:00: 00 Yes 1mg Cosmo Nieves metoprolol tartrate 100 mg tablet 03-29 00:00: 00 Yes 1mg Cosmo Nieves metformin 1,000 mg tablet 03-29 00:00: 00 Yes 1mg Cosmo Nieves glipizide 10 mg tablet 03-29 00:00: 00 Yes 1mg Cosmo Nieves tizanidine 4 mg tablet 03-29 00:00: 00 Yes 1mg Cosmo Nieves levothyroxi ne 75 mcg tablet 03-29 00:00: 00 Yes 1mcg Cosmo Nieves hydrochloro thiazide 25 mg tablet 03-29 00:00: 00 No 1mg metoprolol tartrate 100 mg tablet 03-29 00:00: 00 No 1mg metformin 1,000 mg tablet 03-29 00:00: 00 No 1mg glipizide 10 mg tablet 03-29 00:00: 00 No 1mg tizanidine 4 mg tablet 03-29 00:00: 00 No 1mg levothyroxi ne 75 mcg tablet 03-29 00:00: 00 No 1mcg hydrochloro thiazide 25 mg tablet 03-29 00:00: 00 No 1mg metoprolol tartrate 100 mg tablet 03-29 00:00: 00 No 1mg metformin 1,000 mg tablet 03-29 00:00: 00 No 1mg glipizide 10 mg tablet 03-29 00:00: 00 No 1mg tizanidine 4 mg tablet 2020-0 8-14 00:00: 00 No 1mg levothyroxi ne 75 mcg tablet 0 8-14 00:00: 00 No 1mcg metoprolol tartrate 50 mg tablet 0 7-10 00:00: 00 Yes 2mg Cosmo Nieves metoprolol tartrate 50 mg tablet 0 -10 00:00: 00 No 2mg metoprolol tartrate 50 mg tablet 0 - 00:00: 00 No 2mg metformin 1,000 mg tablet 0 -16 00:00: 00 Yes 1mg Cosmo Nieves levothyroxi ne 75 mcg tablet 0 16 00:00: 00 Yes 1mcg Cosmo Nieves metformin 1,000 mg tablet 0 16 00:00: 00 No 1mg levothyroxi ne 75 mcg tablet 0 16 00:00: 00 No 1mcg metformin 1,000 mg tablet 0 16 00:00: 00 No 1mg levothyroxi ne 75 mcg tablet 0 16 00:00: 00 No 1mcg hydrochloro thiazide 25 mg tablet 0 18 00:00: 00 Yes 1mg Cosmo Nieves metoprolol tartrate 50 mg tablet 0 18 00:00: 00 Yes 1mg Cosmo Nieves tizanidine 4 mg tablet 0 18 00:00: 00 Yes 1mg Cosmo Nieves hydrochloro thiazide 25 mg tablet 0 18 00:00: 00 No 1mg metoprolol tartrate 50 mg tablet 0 18 00:00: 00 No 1mg tizanidine 4 mg tablet 0 18 00:00: 00 No 1mg hydrochloro thiazide 25 mg tablet 0 18 00:00: 00 No 1mg metoprolol tartrate 50 mg tablet 0 18 00:00: 00 No 1mg tizanidine 4 mg tablet 0 18 00:00: 00 No 1mg levothyroxi ne 75 mcg tablet 2018-08-06 00:00: 00 Yes 1mcg Cosmo Nieves levothyroxi ne 75 mcg tablet 2018-08 2-06 00:00: 00 No 1mcg levothyroxi ne 75 mcg tablet 2018-08 00:00: 00 No 1mcg hydrochloro thiazide 25 mg tablet 2018-08 00:00: 00 Yes 1mg Cosmo Nieves metoprolol tartrate 50 mg tablet 2018-08 00:00: 00 Yes 1mg Cosmo Nieves hydrochloro thiazide 25 mg tablet 2018-08 00:00: 00 No 1mg metoprolol tartrate 50 mg tablet 2018-08 00:00: 00 No 1mg hydrochloro thiazide 25 mg tablet 2018-08 00:00: 00 No 1mg metoprolol tartrate 50 mg tablet 2018-08 00:00: 00 No 1mg triamcinolo ne acetonide 0.1 % topical ointment 2018-08 00:00: 00 Yes 1% Cosmo Nieves metoprolol succ 50 mg-hydrochl orothiazide 12.5 mg tablet,ext. rel 24 hr 2018-08 00:00: 00 Yes 1mg Cosmo Nieves glipizide 10 mg tablet 2018-08 00:00: 00 Yes 1mg Cosmo Nieves metformin 1,000 mg tablet 2018-08 00:00: 00 Yes 1mg Cosmo Nieves tizanidine 4 mg tablet 2018-08 00:00: 00 Yes 1mg Cosmo Nieves omeprazole 20 mg capsule,del ayed release 2018-08 00:00: 00 Yes 1mg Cosmo Nieves Tessalon Perles 100 mg capsule 2018-08 00:00: 00 Yes 1mg Cosmo Nieves triamcinolo ne acetonide 0.1 % topical ointment 2018-08 00:00: 00 No 1% metoprolol succ 50 mg-hydrochl orothiazide 12.5 mg tablet,ext. rel 24 hr 2018-08 00:00: 00 No 1mg glipizide 10 mg tablet 2018-08 00:00: 00 No 1mg metformin 1,000 mg tablet 2018-08 00:00: 00 No 1mg tizanidine 4 mg tablet 2018-08 00:00: 00 No 1mg omeprazole 20 mg capsule,del ayed release 2018-08 00:00: 00 No 1mg Tessalon Perles 100 mg capsule 2018-08 00:00: 00 No 1mg triamcinolo ne acetonide 0.1 % topical ointment 2018-08 00:00: 00 No 1% metoprolol succ 50 mg-hydrochl orothiazide 12.5 mg tablet,ext. rel 24 hr 2018-08 00:00: 00 No 1mg glipizide 10 mg tablet 2018-08 00:00: 00 No 1mg metformin 1,000 mg tablet 2018-08 00:00: 00 No 1mg tizanidine 4 mg tablet 2018-08 00:00: 00 No 1mg omeprazole 20 mg capsule,del ayed release 2018-08 00:00: 00 No 1mg Tessalon Perles 100 mg capsule 2018-08 00:00: 00 No 1mg tizanidine 4 mg tablet 04-21 00:00: 00 Yes 1mg Cosmo Nieves tizanidine 4 mg tablet 04-21 00:00: 00 No 1mg tizanidine 4 mg tablet 04-21 00:00: 00 No 1mg levothyroxi ne 75 mcg tablet 11-12 00:00: 00 Yes 1mcg Cosmo Nieves Nexium 20 mg capsule,del ayed release 11-12 00:00: 00 Yes 1mg Cosmo Nieves levothyroxi ne 75 mcg tablet 11-12 00:00: 00 No 1mcg Nexium 20 mg capsule,del ayed release 11-12 00:00: 00 No 1mg levothyroxi ne 75 mcg tablet 11-12 00:00: 00 No 1mcg Nexium 20 mg capsule,del ayed release 11-12 00:00: 00 No 1mg lisinopril 20 mg-hydrochl orothiazide 25 mg tablet 11-11 00:00: 00 Yes 1mg Cosmo Nieves metformin 1,000 mg tablet 11-11 00:00: 00 Yes 1mg Cosmo Martin Ezequiel glipizide 10 mg tablet 11-11 00:00: 00 Yes 1mg Cosmo Nieves lisinopril 20 mg-hydrochl orothiazide 25 mg tablet 11-11 00:00: 00 No 1mg metformin 1,000 mg tablet 11-11 00:00: 00 No 1mg lisinopril 20 mg-hydrochl orothiazide 25 mg tablet 11-11 00:00: 00 No 1mg metformin 1,000 mg tablet 11-11 00:00: 00 No 1mg glipizide 10 mg tablet 11-11 00:00: 00 No 1mg glipizide 10 mg tablet 11-11 00:00: 00 No 1mg levothyroxi ne 75 mcg tablet 2017-08 00:00: 00 Yes 1mcg Cosmo Nieves levothyroxi ne 75 mcg tablet 2017-08 00:00: 00 No 1mcg levothyroxi ne 75 mcg tablet 2017-08 00:00: 00 No 1mcg glipizide 5 mg tablet 05-14 00:00: 00 Yes 1mg Cosmo Nieves lisinopril 20 mg-hydrochl orothiazide 25 mg tablet 05-14 00:00: 00 Yes 1mg Cosmo Nieves metformin 500 mg tablet 05-14 00:00: 00 Yes 1mg Cosmo Nieves levothyroxi ne 75 mcg tablet 05-14 00:00: 00 Yes 1mcg Cosmo Nieves Nexium 20 mg capsule,del ayed release 05-14 00:00: 00 Yes 1mg Cosmo Nieves glipizide 5 mg tablet 05-14 00:00: 00 No 1mg lisinopril 20 mg-hydrochl orothiazide 25 mg tablet 05-14 00:00: 00 No 1mg metformin 500 mg tablet 05-14 00:00: 00 No 1mg levothyroxi ne 75 mcg tablet 05-14 00:00: 00 No 1mcg Nexium 20 mg capsule,del ayed release 05-14 00:00: 00 No 1mg glipizide 5 mg tablet 05-14 00:00: 00 No 1mg lisinopril 20 mg-hydrochl orothiazide 25 mg tablet 05-14 00:00: 00 No 1mg metformin 500 mg tablet 05-14 00:00: 00 No 1mg levothyroxi ne 75 mcg tablet 05-14 00:00: 00 No 1mcg Nexium 20 mg capsule,del ayed release 05-14 00:00: 00 No 1mg levothyroxi ne 75 mcg tablet 02-10 00:00: 00 Yes 1mcg Cosmo Nieves levothyroxi ne 75 mcg tablet 02-10 00:00: 00 No 1mcg levothyroxi ne 75 mcg tablet 02-10 00:00: 00 No 1mcg levothyroxi ne 75 mcg tablet 10-29 00:00: 00 Yes 1mcg Cosmo Nieves levothyroxi ne 75 mcg tablet 10-29 00:00: 00 No 1mcg levothyroxi ne 75 mcg tablet 10-29 00:00: 00 No 1mcg lisinopril 20 mg-hydrochl orothiazide 25 mg tablet 10-23 00:00: 00 No 1mg glipizide 5 mg tablet 10-23 00:00: 00 No 1mg metformin 500 mg tablet 10-23 00:00: 00 No 1mg lisinopril 20 mg-hydrochl orothiazide 25 mg tablet 10-23 00:00: 00 Yes 1mg Cosmo Nieves glipizide 5 mg tablet 10-23 00:00: 00 Yes 1mg Cosmo Nieves metformin 500 mg tablet 10-23 00:00: 00 Yes 1mg Cosmo Nieves lisinopril 20 mg-hydrochl orothiazide 25 mg tablet 10-23 00:00: 00 No 1mg glipizide 5 mg tablet 10-23 00:00: 00 No 1mg metformin 500 mg tablet 10-23 00:00: 00 No 1mg glipizide 5 mg tablet 10-21 00:00: 00 No 1mg glipizide 5 mg tablet 10-21 00:00: 00 No 1mg glipizide 5 mg tablet 10-21 00:00: 00 Yes 1mg Cosmo Nieves lisinopril 20 mg-hydrochl orothiazide 25 mg tablet 01-20 00:00: 00 No 1mg glipizide 5 mg tablet 01-20 00:00: 00 No 1mg metformin 500 mg tablet 01-20 00:00: 00 No 1mg levothyroxi ne 75 mcg tablet 01-20 00:00: 00 No 1mcg lisinopril 20 mg-hydrochl orothiazide 25 mg tablet 01-20 00:00: 00 No 1mg glipizide 5 mg tablet 01-20 00:00: 00 No 1mg metformin 500 mg tablet 01-20 00:00: 00 No 1mg levothyroxi ne 75 mcg tablet 01-20 00:00: 00 No 1mcg lisinopril 20 mg-hydrochl orothiazide 25 mg tablet 01-20 00:00: 00 Yes 1mg Cosmo Nieves glipizide 5 mg tablet 01-20 00:00: 00 Yes 1mg Cosmo Nieves metformin 500 mg tablet 01-20 00:00: 00 Yes 1mg Cosmo Nieves levothyroxi ne 75 mcg tablet 01-20 00:00: 00 Yes 1mcg Cosmo Nieves lisinopril 20 mg-hydrochl orothiazide 25 mg tablet 11-23 00:00: 00 No 1mg metformin 500 mg tablet 11-23 00:00: 00 No 1mg lisinopril 20 mg-hydrochl orothiazide 25 mg tablet 11-23 00:00: 00 No 1mg metformin 500 mg tablet 11-23 00:00: 00 No 1mg lisinopril 20 mg-hydrochl orothiazide 25 mg tablet 11-23 00:00: 00 Yes 1mg Cosmo Nieves metformin 500 mg tablet 11-23 00:00: 00 Yes 1mg Cosmo Nieves glipizide 5 mg tablet 10-22 00:00: 00 No 1mg glipizide 5 mg tablet 10-22 00:00: 00 No 1mg glipizide 5 mg tablet 10-22 00:00: 00 Yes 1mg Cosmo Nieves glipizide 5 mg tablet 09-08 00:00: 00 No 1mg glipizide 5 mg tablet 09-08 00:00: 00 No 1mg glipizide 5 mg tablet 09-08 00:00: 00 Yes 1mg Cosmo Nieves glimepiride 1 mg tablet 09-05 00:00: 00 No 1mg glimepiride 1 mg tablet 09-05 00:00: 00 No 1mg glimepiride 1 mg tablet 09-05 00:00: 00 Yes 1mg Cosmo Nieves levothyroxi ne 75 mcg tablet 08-31 00:00: 00 No 1mcg levothyroxi ne 75 mcg tablet 08-31 00:00: 00 No 1mcg levothyroxi ne 75 mcg tablet 08-31 00:00: 00 Yes 1mcg Cosmo Nieves lisinopril 20 mg-hydrochl orothiazide 25 mg tablet 08-29 00:00: 00 No 1mg levothyroxi ne 75 mcg tablet 08-29 00:00: 00 No 1mcg lisinopril 20 mg-hydrochl orothiazide 25 mg tablet 08-29 00:00: 00 No 1mg levothyroxi ne 75 mcg tablet 08-29 00:00: 00 No 1mcg lisinopril 20 mg-hydrochl orothiazide 25 mg tablet 08-29 00:00: 00 Yes 1mg Cosmo Nieves levothyroxi ne 75 mcg tablet 08-29 00:00: 00 Yes 1mcg Cosmo Nieves lisinopril 20 mg-hydrochl orothiazide 25 mg tablet 2015-08 00:00: 00 No 1mg lisinopril 20 mg-hydrochl orothiazide 25 mg tablet 2015-08 00:00: 00 No 1mg lisinopril 20 mg-hydrochl orothiazide 25 mg tablet 2015-08 00:00: 00 Yes 1mg Cosmo Nieves levothyroxi ne 75 mcg tablet 2015-08 00:00: 00 No 1mcg levothyroxi ne 75 mcg tablet 2015-08 00:00: 00 No 1mcg levothyroxi ne 75 mcg tablet 2015-08 00:00: 00 Yes 1mcg Cosmo Nieves levothyroxi ne 75 mcg tablet 04-13 00:00: 00 No 1mcg levothyroxi ne 75 mcg tablet 04-13 00:00: 00 No 1mcg levothyroxi ne 75 mcg tablet 04-13 00:00: 00 Yes 1mcg Cosmo Nieves hydrochloro thiazide 25 mg tablet 04-11 00:00: 00 No 1mg metformin 500 mg tablet 04-11 00:00: 00 No 1mg hydrochloro thiazide 25 mg tablet 04-11 00:00: 00 No 1mg metformin 500 mg tablet 04-11 00:00: 00 No 1mg hydrochloro thiazide 25 mg tablet 04-11 00:00: 00 Yes 1mg Cosmo Nieves metformin 500 mg tablet 04-11 00:00: 00 Yes 1mg Cosmo Nieves hydrochloro thiazide 25 mg tablet 02-20 00:00: 00 No 1mg hydrochloro thiazide 25 mg tablet 02-20 00:00: 00 No 1mg hydrochloro thiazide 25 mg tablet 02-20 00:00: 00 Yes 1mg Cosmo Nieves levothyroxi ne 50 mcg tablet 01-31 00:00: 00 No 1mcg metformin 500 mg tablet 01-31 00:00: 00 No 1mg levothyroxi ne 50 mcg tablet 01-31 00:00: 00 No 1mcg metformin 500 mg tablet 01-31 00:00: 00 No 1mg metformin 500 mg tablet 01-31 00:00: 00 Yes 1mg Cosmo Nieves levothyroxi ne 50 mcg tablet 01-31 00:00: 00 Yes 1mcg Cosmo Nieves triamcinolo ne acetonide 0.1 % topical cream 01-24 00:00: 00 No 1% hydrochloro thiazide 25 mg tablet 01-24 00:00: 00 No 1mg triamcinolo ne acetonide 0.1 % topical cream 01-24 00:00: 00 No 1% hydrochloro thiazide 25 mg tablet 01-24 00:00: 00 No 1mg triamcinolo ne acetonide 0.1 % topical cream 01-24 00:00: 00 Yes 1% Cosmo Nieves hydrochloro thiazide 25 mg tablet 01-24 00:00: 00 Yes 1mg Cosmo Nieves Vital Signs Vital Name Observation Time Observation Value Comments S isadora Systolic blood pressure 2021-06-11 18:27:00 155 mm[Hg] [place] [facility] Diastolic blood pressure 2021-06-11 18:27:00 85 mm[Hg] [facility] Heart rate 2021-06-11 18:27:00 62 /min [facility] Respiratory rate 2021-06-11 18:27:00 18 /min [facility] Oxygen saturation in Arterial blood by Pulse oximetry 2021-06-11 18:27:00 100 /min [place] [facility] Body temperature 2021-06-11 14:37:00 36.33 Gabriella [facility] Body height 2021-06-11 14:37:00 180.3 cm [facility] Body weight 2021-06-11 14:37:00 176.903 kg [facility] BMI 2021-06-11 14:37:00 54.39 kg/m2 [facility] BP Systolic 2024-08-02 14:30:00 164 mm[Hg] Adan Nieves BP Diastolic 2024-08-02 14:30:00 103 mm[Hg] Gregorio Nieves Weight Measured 2024-08-02 14:30:00 358.60 pounds Cosmo Nieves Height Measured 2024-08-02 14:30:00 70.00 inches Cosmo Nieves Body Temperature 2024-08-02 14:30:00 98.90 degrees Cosmo Nieves Heart Rate 2024-08-02 14:30:00 99.00 /min Anabela en F Ezequiel Respiratory Rate 2024-08-02 14:30:00 18.00 /min Cosmo Nieves BP Systolic 2024-02-10 10:21:00 157 mm[Hg] Step hen F Ezequiel BP Diastolic 2024-02-10 10:21:00 100 mm[Hg] Gregorio phen F Ezequiel Weight Measured 2024-02-10 10:21:00 381.60 pounds Cosmo F Ezequiel Height Measured 2024-02-10 10:21:00 70.00 inches Cosmo F Ezequiel Body Temperature 2024-02-10 10:21:00 98.40 degrees Cosmo F Ezequiel Heart Rate 2024-02-10 10:21:00 63.00 /min Anabela en F Ezequiel Respiratory Rate 2024-02-10 10:21:00 18.00 /min Cosmo F Ezequiel BP Systolic 2023-08-25 16:24:00 Step hen F Ezequiel BP Diastolic 2023-08-25 16:24:00 Gregorio phen F Ezequiel Weight Measured 2023-08-25 16:24:00 Cosmo F Ezequiel Height Measured 2023-08-25 16:24:00 Cosmo F Ezequiel Body Temperature 2023-08-25 16:24:00 Cosmo F Ezequiel Heart Rate 2023-08-25 16:24:00 Anabela en F Ezequiel Respiratory Rate 2023-08-25 16:24:00 Cosmo F Ezequiel BP Systolic 2023-05-24 14:50:00 170 mm[Hg] Step hen F Ezequiel BP Diastolic 2023-05-24 14:50:00 100 mm[Hg] Gregorio phen F Ezequiel Weight Measured 2023-05-24 14:50:00 370.20 pounds Cosmo F Ezequiel Height Measured 2023-05-24 14:50:00 70.00 inches Cosmo F Ezequiel Body Temperature 2023-05-24 14:50:00 98.20 degrees Cosmo F Ezequiel Heart Rate 2023-05-24 14:50:00 99.00 /min Anabela en F Ezequiel Respiratory Rate 2023-05-24 14:50:00 19.00 /min Cosmo F Eezquiel BP Systolic 2022-08-22 13:29:00 160 mm[Hg] Step hen F Ezequiel BP Diastolic 2022-08-22 13:29:00 84 mm[Hg] Gregorio phen F Ezequiel Weight Measured 2022-08-22 13:29:00 373.80 pounds Cosmo F Ezequiel Height Measured 2022-08-22 13:29:00 70.00 inches Cosmo F Ezequiel Body Temperature 2022-08-22 13:29:00 98.80 degrees Cosmo F Ezequiel Heart Rate 2022-08-22 13:29:00 66.00 /min Anabela en F Ezequiel Respiratory Rate 2022-08-22 13:29:00 Cosmo F Ezequiel BP Systolic 2022-04-08 09:46:00 125 mm[Hg] Step hen F Ezequiel BP Diastolic 2022-04-08 09:46:00 78 mm[Hg] Gregorio phen F Ezequiel Weight Measured 2022-04-08 09:46:00 367.00 pounds Cosmo F Ezequiel Height Measured 2022-04-08 09:46:00 70.00 inches Cosmo F Ezequiel Body Temperature 2022-04-08 09:46:00 97.10 degrees Cosmo F Ezequiel Heart Rate 2022-04-08 09:46:00 71.00 /min Anabela en F Ezequiel Respiratory Rate 2022-04-08 09:46:00 16.00 /min Cosmo F Ezequiel BP Systolic 2021-10-31 14:46:00 142 mm[Hg] Step hen F Ezequiel BP Diastolic 2021-10-31 14:46:00 85 mm[Hg] Gregorio phen F Ezequiel Weight Measured 2021-10-31 14:46:00 381.60 pounds Cosmo F Ezequiel Height Measured 2021-10-31 14:46:00 70.00 inches Cosmo F Ezequiel Body Temperature 2021-10-31 14:46:00 97.80 degrees Cosmo F Ezequiel Heart Rate 2021-10-31 14:46:00 70.00 /min Anabela en F Ezequiel Respiratory Rate 2021-10-31 14:46:00 16.00 /min Cosmo F Ezequiel BP Systolic 2021-08-21 14:16:00 127 mm[Hg] Step hen F Ezequiel BP Diastolic 2021-08-21 14:16:00 80 mm[Hg] Gregorio phen F Ezequiel Weight Measured 2021-08-21 14:16:00 384.20 pounds Cosmo F Ezequiel Height Measured 2021-08-21 14:16:00 70.00 inches Cosmo F Ezequiel Body Temperature 2021-08-21 14:16:00 98.20 degrees Cosmo F Ezequiel Heart Rate 2021-08-21 14:16:00 71.00 /min Anabela en F Ezequiel Respiratory Rate 2021-08-21 14:16:00 Cosmo F Ezequiel BP Systolic 2021-07-18 10:05:00 144 mm[Hg] Step hen F Ezequiel BP Diastolic 2021-07-18 10:05:00 83 mm[Hg] Gregorio phen F Ezequiel Weight Measured 2021-07-18 10:05:00 378.20 pounds Cosmo F Ezequiel Height Measured 2021-07-18 10:05:00 70.00 inches Cosmo F Ezequiel Body Temperature 2021-07-18 10:05:00 98.10 degrees Cosmo F Ezequiel Heart Rate 2021-07-18 10:05:00 72.00 /min Anabela en F Ezequiel Respiratory Rate 2021-07-18 10:05:00 Cosmo F Ezequiel BP Systolic 2021-04-14 10:28:00 124 mm[Hg] Step hen F Ezequiel BP Diastolic 2021-04-14 10:28:00 80 mm[Hg] Gregorio phen F Ezequiel Weight Measured 2021-04-14 10:28:00 387.40 pounds Cosmo F Ezequiel Height Measured 2021-04-14 10:28:00 70.00 inches Cosmo F Ezequiel Body Temperature 2021-04-14 10:28:00 98.30 degrees Cosmo F Ezequiel Heart Rate 2021-04-14 10:28:00 68.00 /min Anabela en F Ezequiel Respiratory Rate 2021-04-14 10:28:00 Cosmo F Ezequiel BP Systolic 2020-07-06 11:59:00 140 mm[Hg] Step hen F Ezequiel BP Diastolic 2020-07-06 11:59:00 77 mm[Hg] Gregorio phen F Ezequiel Weight Measured 2020-07-06 11:59:00 399.40 pounds Cosmo F Ezequiel Height Measured 2020-07-06 11:59:00 70.00 inches Cosmo F Ezequiel Body Temperature 2020-07-06 11:59:00 98.30 degrees Cosmo F Ezequiel Heart Rate 2020-07-06 11:59:00 64.00 /min Anabela en F Ezequiel Respiratory Rate 2020-07-06 11:59:00 Cosmo F Ezequiel BP Systolic 2020-07-06 11:29:00 140 mm[Hg] BP Diastolic 2020-07-06 11:29:00 77 mm[Hg] Weight Measured 2020-07-06 11:29:00 399.40 pounds Height Measured 2020-07-06 11:29:00 70.00 inches Body Temperature 2020-07-06 11:29:00 98.30 degrees Heart Rate 2020-07-06 11:29:00 64.00 /min Respiratory Rate 2020-07-06 11:29:00 BP Systolic 2020-03-29 15:53:00 153 mm[Hg] BP Diastolic 2020-03-29 15:53:00 79 mm[Hg] Weight Measured 2020-03-29 15:53:00 401.00 pounds Height Measured 2020-03-29 15:53:00 70.00 inches Body Temperature 2020-03-29 15:53:00 99.30 degrees Heart Rate 2020-03-29 15:53:00 88.00 /min Respiratory Rate 2020-03-29 15:53:00 17.00 /min BP Systolic 2019-07-21 15:32:00 150 mm[Hg] BP Diastolic 2019-07-21 15:32:00 83 mm[Hg] Weight Measured 2019-07-21 15:32:00 398.20 pounds Height Measured 2019-07-21 15:32:00 70.00 inches Body Temperature 2019-07-21 15:32:00 98.70 degrees Heart Rate 2019-07-21 15:32:00 87.00 /min Respiratory Rate 2019-07-21 15:32:00 16.00 /min BP Systolic 2019-06-16 16:08:00 155 mm[Hg] BP Diastolic 2019-06-16 16:08:00 95 mm[Hg] Weight Measured 2019-06-16 16:08:00 396.00 pounds Height Measured 2019-06-16 16:08:00 70.00 inches Body Temperature 2019-06-16 16:08:00 99.80 degrees Heart Rate 2019-06-16 16:08:00 114.00 /min Respiratory Rate 2019-06-16 16:08:00 16.00 /min Procedures Procedure Date / Time Performed Performing Clinicia n Source ASSIGNMENT OF BENEFITS 2022-06-08 17:00:19 Docto r Unassigned, [place] [facility] NM GASTRIC EMPTYING 2021-07-04 18:24:04 Vern Severino [facility] POCT TEST 2021-06-11 15:59:00 Gris Sanchez [facility] URINALYSIS 2021-06-11 15:58:00 Gris Sanchez [facility] LIPASE 2021-06-11 15:33:00 Gris Sanchez [facility] COMP. METABOLIC PANEL (89284) 2021-06-11 15:33:00 Gris Sanchez [facility] CBC WITH DIFF 2021-06-11 15:33:00 Gris Sanchez [facility] COVID-19 (ID NOW RAPID TESTING) 2021-06-11 15:33:00 Gris Sanchez [facility] NOTICE OF PRIVACY PRACTICES 2021-06-11 14:33:32 Doctor Unassigned, [place] [facility] CONSENT/REFUSAL FOR DIAGNOSIS AND TREATMENT 2021-06-11 14:26:41 Doctor Unassigned, [place] [facility] US ABDOMEN COMPLETE 2020-12-19 16:56:42 Vern Severino [facility] PATIENT FINANCIAL POLICY 2020-12-19 16:06:19 Doctor Unassigned, [place] [facility] NOTICE OF PRIVACY PRACTICES 2020-12-19 16:05:57 Doctor Unassigned, [place] [facility] CONSENT/REFUSAL FOR DIAGNOSIS AND TREATMENT 2020-12-19 16:05:36 Doctor Unassigned, [place] [facility] ASSIGNMENT OF BENEFITS 2020-12-19 16:05:11 Docto r Unassigned, [place] [facility] Ekg 2020-07-06 00:00:00 Cosmo Nieves 27217 Ecg Routine Ecg W/least 12 Lds W/i r 2016-01-25 00:00:00 Cosmo Nieves Plan of Care Planned Activity Planned Date Details Comments Source Goal Plan of Care Note [code = 35014-5] Goal Plan of Care Note [code = 41443-4] Goal Plan of Care Note [code = 29410-8] Goal Plan of Care Note [code = 70484-5] Goal Plan of Care Note [code = 38982-1] Goal Plan of Care Note [code = 08638-9] Goal Plan of Care Note [code = 72790-1] Goal Plan of Care Note [code = 47620-7] Goal Plan of Care Note [code = 72031-1] Goal Plan of Care Note [code = 88225-6] Goal Plan of Care Note [code = 18942-9] Goal Plan of Care Note [code = 51863-1] Goal Plan of Care Note [code = 00034-5] Goal Plan of Care Note [code = 77191-5] Goal Plan of Care Note [code = 07121-7] Goal Plan of Care Note [code = 82466-7] Goal Plan of Care Note [code = 14776-9] Goal Plan of Care Note [code = 85059-1] Goal Plan of Care Note [code = 43561-8] Goal Plan of Care Note [code = 20349-5] Goal Plan of Care Note [code = 28603-4] Goal Plan of Care Note [code = 51137-1] Goal Plan of Care Note [code = 86869-3] Goal Plan of Care Note [code = 94929-8] Goal Plan of Care Note [code = 02961-8] Goal Plan of Care Note [code = 00160-9] Goal Plan of Care Note [code = 52322-5] Goal Plan of Care Note [code = 87074-1] Goal Plan of Care Note [code = 41249-3] Goal Plan of Care Note [code = 96707-9] Goal Plan of Care Note [code = 74028-1] Goal Plan of Care Note [code = 22373-9] Goal Plan of Care Note [code = 44148-8] Goal Plan of Care Note [code = 28263-9] Goal Plan of Care Note [code = 55897-9] Goal Plan of Care Note [code = 24105-2] Goal Plan of Care Note [code = 40402-9] Goal Plan of Care Note [code = 86598-1] Goal Plan of Care Note [code = 76692-4] Goal Plan of Care Note [code = 95923-8] Goal Plan of Care Note [code = 36033-8] Goal Plan of Care Note [code = 61909-9] Goal Plan of Care Note [code = 46085-5] Goal Plan of Care Note [code = 91578-0] Goal Plan of Care Note [code = 44390-1] Goal Plan of Care Note [code = 27214-9] Goal Plan of Care Note [code = 82734-7] Goal Plan of Care Note [code = 95894-5] Goal Plan of Care Note [code = 26892-2] Goal Plan of Care Note [code = 89788-2] Goal Plan of Care Note [code = 01170-2] Goal Plan of Care Note [code = 51053-2] Goal Plan of Care Note [code = 98446-4] Goal Plan of Care Note [code = 05132-2] Goal Plan of Care Note [code = 24622-2] Goal Plan of Care Note [code = 68868-4] Goal Plan of Care Note [code = 74753-9] Goal Plan of Care Note [code = 36336-1] Encounters Start Date/Time End Date/Time Encounter Type Admission Type Attending [facility] Care Facility Care Department Encounter ID Source 2023-11-02 13:51:31 Outpatient KATHLEEN SAWYER [facility] [id number] [facility] 2024-08-02 14:30:19 2024-08-02 14:30:19 Outpatient [facility] [id number] Cosmo Nieves 2024-08-02 00:00:00 2024-08-02 00:00:00 Outpatient Visit [facility] [id number] Cosmo Nieves 2024-02-10 10:19:21 2024-02-10 10:19:21 Outpatient [facility] [id number] Cosmo Nieves 2024-02-10 00:00:00 2024-02-10 00:00:00 Outpatient Visit [facility] [id number] Cosmo Nieves 2023-10-11 19:54:00 2023-10-11 23:40:00 emergency [facility] [id number] 2023-10-11 19:54:00 2023-10-11 23:40:00 Emergency ER ANGÉLICA DIGGS [facility] [id number] [facility] 2023-05-24 14:39:56 2023-05-24 14:39:56 Outpatient [facility] [id number] Cosmo Nieves 2022-08-22 13:20:07 2022-08-22 13:20:07 Outpatient [facility] [id number] Cosmo Nieves 2022-08-04 00:00:00 2022-08-04 00:00:00 Outpatient Visit [id number] 2022-06-08 12:01:41 2022-06-08 23:59:00 Outpatient R DALLAS AGUILAR [facility] [id number] [facility] 2022-06-08 00:00:00 2022-06-08 00:00:00 Orders Only Doctor Unassigned, Long [place] [facility] .840.114 [id number] [facility] 2022-04-08 00:00:00 2022-04-08 00:00:00 Outpatient Visit [id number] 2021-07-04 07:46:12 2021-07-04 23:59:00 Outpatient R VERN SOLANO [facility] [id number] [facility] 2021-07-04 07:46:12 2021-07-04 23:59:00 Hospital Encounter Vern Solano [facility] .840.114 [id number] [facility] 2021-07-02 00:00:00 2021-07-02 00:00:00 Outpatient R VERN SOLANO [facility] [id number] [facility] 2021-07-02 00:00:00 2021-07-02 00:00:00 [facility] [id number] [facility] 2021-06-12 00:00:00 2021-06-12 00:00:00 Patient Secure Msg Doctor Unassigned, [place] [facility] 1..114 [id number] [id number] [facility] 2021-06-11 09:37:00 2021-06-11 13:28:00 Emergency Gris Sanchez S [facility] 1.84.114 [id number] [facility] 2021-06-11 09:37:00 2021-06-11 13:28:00 Emergency X GRIS SANCHEZ [facility] ERT [id number] [facility] 2020-12-19 11:07:11 2020-12-19 23:59:00 Hospital Encounter Vern Solano [facility] [id number] 350.1.13.10 [id number] [id number] [facility] 2020-12-19 00:00:00 2020-12-19 00:00:00 Outpatient R VERN SOLANO [facility] [id number] [facility] 2020-12-19 00:00:00 2020-12-19 00:00:00 Orders Only Doctor Unassigned, [place] [facility] [id number] [id number] [id number] [facility] 2020-11-26 23:25:00 2020-11-27 04:52:00 Emergency ER BRISSA BETANCUR [facility] [id number] [facility] 2019-04-15 17:08:00 2019-04-15 18:33:00 Emergency ER POLO PATTERSON [facility] [id number] [facility] 2013-01-13 07:43:00 2013-01-13 10:09:00 Emergency ER BRISSA BETANCUR [facility] [id number] [facility] Results Test Description Test Time Test Comments Results Result Co mments Source ALBUMIN/CREATININE RATIO, URINE, [id number] 04:13:59* Test Item Value Reference Range Interpretation Comme nts CREATININE, URINE, CONC. (test code = 2072) 190.2 MG/DL NOT ESTAB ALBUMIN, URINE, RANDOM (test code = 77399) 1.9 MG/DL NOT ESTAB CALC ALBUMIN/CREAT, RND (test code = 76967) 10 MG/G <30 Note: Albumin/Cr eatinine ratio reference interval reflects ADA and NKF guidelines. UNLESS OTHERWISE INDICATED, ALL TESTING PERFORMED AT [facility] [address] [place] [address] GAMING COMMISSIONER: SHWETHA FLOWERS M.D. CLIA NUMBER [id number] [place] [id number] COMPREHENSIVE METABOLIC [id number] 04:12:53* Test Item Value Reference Range Interpretation Comme nts GLUCOSE (test code = 2217) 145 MG/DL 70-99 H BUN (test code = 2208) 8 MG/DL 6-20 CREATININE (test code = 2214) 0.84 MG/DL 0.60-1.30 eGFR (2020 CKD-EPI) (test co de = 87418) 89 ML/MIN/1.73 >60 CALC BUN/CREAT (test code = 2235) 10 RATIO 6-28 SODIUM (test code = 223) 140 MEQ/L 133-146 POTASSIUM (test code = 2228) 3.4 MEQ/L 3.5-5.4 L CHLORIDE (test code = 5) 99 MEQ/L 95-107 CARBON DIOXIDE (test code = 2205) 28 MEQ/L 19-31 CALCIUM (test code = 2208) 10.0 MG/DL 8.5-10.5 PROTEIN, TOTAL (test code = 2228) 7.2 G/DL 6.1-8.3 ALBUMIN (test code = 2200) 4.4 G/DL 3.5-5.2 CALC GLOBULIN (test code = 0) 2.8 G/DL 1.9-3.7 CALC A/G RATIO (test code = 2233) 1.6 RATIO 1.0-2.6 BILIRUBIN, TOTAL (test code = 2206) 0.5 MG/DL <=1.2 ALKALINE PHOSPHATASE (test code = 2203) 75 U/L 40-113 AST (test code = 2217) 29 U/L 9-40 ALT (test code = 2218) 32 U/L 5-40 LIPID [id number] 04:12:53* Test Item Value Reference Range Interpretation Comme nts CHOLESTEROL (test code = 2209) 208 MG/DL <200 H TRIGLYCERIDES (test code = 2) 145 MG/DL <150 HDL CHOLESTEROL (test code = 2219) 50 MG/DL >39 CALC LDL CHOL (test code = 2236) 132 MG/DL <100 H NOTE: CALCULATED LDL IS BASED ON LIANNE-REYES METHOD WHICHINCLUDES ADJUSTABLE TRIGLYCERIDE:VLDL CHOLESTEROL RATIO.THIS FACTOR VARIES BY MEASURED TRIGLYCERIDE AND NON-HDLCHOLESTEROL CONCENTRATIONS WITH INCREASED CALCULATED LDL SEENIN HIGHER TRIGLYCERIDE OR LOWER NON-HDL SPECIMENS. FOR MOREINFORMATION, SEE CLIENT ANNOUNCEMENT AT [email or web address] RISK RATIO LDL/HDL (test code = 2238) 2.64 RATIO <3.22 CBC W/AUTO DIFF WITH [id number] 03:32:38* Test Item Value Reference Range Interpretation Comme nts WBC (test code = 1001) 12.4 K/UL 3.5-11.0 H RBC (test code = 1002) 5.11 M/UL 3.80-5.40 HEMOGLOBIN (test code = 1003) 13.5 G/DL 11.5-15.5 HEMATOCRIT (test code = 1004) 41.8 % 34.0-45.0 MCV (test code = 1005) 81.8 fL 80.0-99.0 MCH (test code = 1006) 26.4 PG 25.0-33.0 MCHC (test code = 1007) 32.3 G/DL 31.0-36.0 RDW (test code = 1038) 16.1 % 11.5-15.0 H NEUTROPHILS (test code = 1008) 66.5 % LYMPHOCYTES (test code = 1010) 22.2 % MONOCYTES (test code = 1011) 7.1 % EOSINOPHILS (test code = 1012) 3.3 % BASOPHILS (test code = 1013) 0.5 % IMMATURE GRANULOCYTES (test code = 1036) 0.4 % NUCLEATED RBCS (test code = 1065) 0.0 /100 WBC'S See_Comment [Automated messa ge] The system which generated this result transmitted reference range: 0.0. The reference range was not used to interpret this result as normal/abnormal. PLATELET COUNT (test code = 1015) 327 K/UL 130-400 ABSOLUTE NEUTROPHILS (test code = 1066) 8.21 K/UL 1.50-7.50 H ABSOLUTE LYMPHOCYTES (test code = 1067) 2.75 K/UL 1.00-4.00 ABSOLUTE MONOCYTES (test code = 1068) 0.88 K/UL 0.20-1.00 ABSOLUTE EOSINOPHILS (test code = 1040) 0.41 K/UL 0.00-0.50 ABSOLUTE BASOPHILS (test code = 1069) 0.06 K/UL 0.00-0.20 ABS IMMATURE GRANULOCYTES (test code = 1020) 0.05 K/UL 0.00-0.10 ABS NUCLEATED RBCS (test code = 38785) 0.00 K/UL 0.00-0.11 TSH, THIRD [id number] 04:23:34* Test Item Value Reference Range Interpretation Comme nts TSH, THIRD GENERATION (test code = 2821) 3.690 UIU/ML 0.400-4.100 UNLESS OTHERWISE INDICATED, ALL TESTING PERFORMED AT [facility] [address] [place] [id number] GAMING COMMISSIONER: SHWETHA FLOWERS M.D. CLIA NUMBER [id number] [facility] [place]. [id number] LIPID [id number] 04:19:53* Test Item Value Reference Range Interpretation Comme nts CHOLESTEROL (test code = 2210) 228 MG/DL <200 H TRIGLYCERIDES (test code = 2232) 210 MG/DL <150 H HDL CHOLESTEROL (test code = 2220) 49 MG/DL >39 CALC LDL CHOL (test code = 2237) 144 MG/DL <100 H NOTE: CALCULATED LDL IS BASED ON LIANNE-REYES METHOD WHICHINCLUDES ADJUSTABLE TRIGLYCERIDE:VLDL CHOLESTEROL RATIO.THIS FACTOR VARIES BY MEASURED TRIGLYCERIDE AND NON-HDLCHOLESTEROL CONCENTRATIONS WITH INCREASED CALCULATED LDL SEENIN HIGHER TRIGLYCERIDE OR LOWER NON-HDL SPECIMENS. FOR MOREINFORMATION, SEE CLIENT ANNOUNCEMENT AT [email or web address] RISK RATIO LDL/HDL (test code = 2238) 2.94 RATIO <3.22 COMPREHENSIVE METABOLIC [id number] 04:19:53* Test Item Value Reference Range Interpretation Comme nts GLUCOSE (test code = 2216) 220 MG/DL 70-99 H BUN (test code = 2207) 11 MG/DL 6-20 CREATININE (test code = 2213) 0.74 MG/DL 0.60-1.30 eGFR (2020 CKD-EPI) (test code = 40116) 104 ML/MIN/1.73 >60 CALC BUN/CREAT (test code = 223) 15 RATIO 6-28 SODIUM (test code = 2230) 139 MEQ/L 133-146 POTASSIUM (test code = 222) 4.6 MEQ/L 3.5-5.4 CHLORIDE (test code = 221) 97 MEQ/L 95-107 CARBON DIOXIDE (test code = 220) 26 MEQ/L 19-31 CALCIUM (test code = 2208) 10.2 MG/DL 8.5-10.5 PROTEIN, TOTAL (test code = 2228) 6.9 G/DL 6.1-8.3 ALBUMIN (test code = 2200) 4.3 G/DL 3.5-5.2 CALC GLOBULIN (test code = 2240) 2.6 G/DL 1.9-3.7 CALC A/G RATIO (test code = 2234) 1.7 RATIO 1.0-2.6 BILIRUBIN, TOTAL (test code = 2206) 0.3 MG/DL <=1.2 ALKALINE PHOSPHATASE (test code = 2203) 81 U/L 40-113 AST (test code = 2218) 54 U/L 9-40 H ALT (test code = 2219) 44 U/L 5-40 H HEMOGLOBIN [id number] 04:16:59* Test Item Value Reference Range Interpretation Comme nts HEMOGLOBIN A1c (test code = 04394) 8.6 % 4.2-5.6 H [employer] GUIDELINES FOR HGB A1C: PREDIABETES/INCREASED RISK . . . . . . . 5.7-6.4% DIAGNOSIS OF DIABETES . . . . . . . . . >=6.5% WITH CONFIRMATION OR APPROPRIATE SYMPTOMS NOTE: ASSAY MAY BE AFFECTED BY HEMOGLOBINOPATHIES (SICKLE CELL ANEMIA, S-C DISEASE, OTHERS) OR ARTIFICIALLY LOWERED BY DECREASED RED CELL SURVIVAL (HEMOLYTIC ANEMIAS, BLOOD LOSS, ETC.). CONSIDER ALTERNATE TESTING OR LABORATORY CONSULTATION. CBC W/AUTO DIFF WITH [id number] 02:14:16* Test Item Value Reference Range Interpretation Comme nts WBC (test code = 1001) 10.9 K/UL 3.5-11.0 RBC (test code = 1002) 4.68 M/UL 3.80-5.40 HEMOGLOBIN (test code = 1003) 12.2 G/DL 11.5-15.5 HEMATOCRIT (test code = 1004) 37.7 % 34.0-45.0 MCV (test code = 1005) 80.6 fL 80.0-99.0 MCH (test code = 1006) 26.1 PG 25.0-33.0 MCHC (test code = 1007) 32.4 G/DL 31.0-36.0 RDW (test code = 1038) 16.2 % 11.5-15.0 H NEUTROPHILS (test code = 1008) 69.4 % LYMPHOCYTES (test code = 1010) 19.8 % MONOCYTES (test code = 1011) 6.6 % EOSINOPHILS (test code = 1012) 3.2 % BASOPHILS (test code = 1013) 0.5 % IMMATURE GRANULOCYTES (test code = 1036) 0.5 % NUCLEATED RBCS (test code = 1065) 0.0 /100 WBC'S See_Comment [Automated [employer] ge] The system which generated this result transmitted reference range: 0.0. The reference range was not used to interpret this result as normal/abnormal. PLATELET COUNT (test code = 1015) 230 K/UL 130-400 ABSOLUTE NEUTROPHILS (test code = 1066) 7.57 K/UL 1.50-7.50 H ABSOLUTE LYMPHOCYTES (test code = 1067) 2.16 K/UL 1.00-4.00 ABSOLUTE MONOCYTES (test code = 1068) 0.72 K/UL 0.20-1.00 ABSOLUTE EOSINOPHILS (test code = 1040) 0.35 K/UL 0.00-0.50 ABSOLUTE BASOPHILS (test code = 1069) 0.05 K/UL 0.00-0.20 ABS IMMATURE GRANULOCYTES (test code = 1020) 0.05 K/UL 0.00-0.10 ABS NUCLEATED RBCS (test code = 25632) 0.00 K/UL 0.00-0.11 HEMOGLOBIN [id number] 00:00:00* Test Item Value Reference Range Interpretation Comme nts HEMOGLOBIN A1c (test code = 50757) 8.6 % Cosmo NievesLIPID [id number] 00:00:00* Test Item Value Reference Range Interpretation Comme nts CHOLESTEROL (test code = 2210) 228 MG/DL TRIGLYCERIDES (test code = 2232) 210 MG/DL HDL CHOLESTEROL (test code = 2220) 49 MG/DL CALC LDL CHOL (test code = 2237) 144 MG/DL RISK RATIO LDL/HDL (test cod e = 2238) 2.94 RATIO Cosmo NievesC W/AUTO [id number] 00:00:00* Test Item Value Reference Range Interpretation Comme nts WBC (test code = 1001) 10.9 K/UL RBC (test code = 1002) 4.68 M/UL HEMOGLOBIN (test code = 1003) 12.2 G/DL HEMATOCRIT (test code = 1004) 37.7 % MCV (test code = 1005) 80.6 fL MCH (test code = 1006) 26.1 PG MCHC (test code = 1007) 32.4 G/DL RDW (test code = 1038) 16.2 % NEUTROPHILS (test code = 1008) 69.4 % LYMPHOCYTES (test code = 1010) 19.8 % MONOCYTES (test code = 1011) 6.6 % EOSINOPHILS (test code = 1012) 3.2 % BASOPHILS (test code = 1013) 0.5 % IMMATURE GRANULOCYTES (test code = 1036) 0.5 % NUCLEATED RBCS (test code = 1065) 0.0 /100WBC'S PLATELET COUNT (test code = 1015) 230 K/UL ABSOLUTE NEUTROPHILS (test c ode = 1066) 7.57 K/UL ABSOLUTE LYMPHOCYTES (test c ode = 1067) 2.16 K/UL ABSOLUTE MONOCYTES (test cod e = 1068) 0.72 K/UL ABSOLUTE EOSINOPHILS (test c ode = 1040) 0.35 K/UL ABSOLUTE BASOPHILS (test cod e = 1069) 0.05 K/UL ABS IMMATURE GRANULOCYTES (t est code = 1020) 0.05 K/UL ABS NUCLEATED RBCS (test cod e = 98571) 0.00 K/UL Cosmo NievesCOMPREHENSIVE METABOLIC [id number] 00:00:00* Test Item Value Reference Range Interpretation Comme nts GLUCOSE (test code = 2217) 220 MG/DL BUN (test code = 2208) 11 MG/DL CREATININE (test code = 2214) 0.74 MG/DL eGFR (2020 CKD-EPI) (test code = 22662) 104 ML/MIN/1.73 CALC BUN/CREAT (test code = 2235) 15 RATIO SODIUM (test code = 2231) 139 MEQ/L POTASSIUM (test code = 2228) 4.6 MEQ/L CHLORIDE (test code = 2215) 97 MEQ/L CARBON DIOXIDE (test code = 2206) 26 MEQ/L CALCIUM (test code = 2209) 10.2 MG/DL PROTEIN, TOTAL (test code = 2229) 6.9 G/DL ALBUMIN (test code = 2201) 4.3 G/DL CALC GLOBULIN (test code = 2240) 2.6 G/DL CALC A/G RATIO (test code = 2234) 1.7 RATIO BILIRUBIN, TOTAL (test code = 2207) 0.3 MG/DL ALKALINE PHOSPHATASE (test code = 2204) 81 U/L AST (test code = 2218) 54 U/L ALT (test code = 2219) 44 U/L Cosmo Obrien, THIRD [id number] 00:00:00* Test Item Value Reference Range Interpretation Comme nts TSH, THIRD GENERATION (test code = 2821) 3.690 UIU/ML Cosmo Obrien, THIRD [id number] 06:33:53* Test Item Value Reference Range Interpretation Comme nts TSH, THIRD GENERATION (test code = 2821) 1.670 UIU/ML 0.400-4.100 COMPREHENSIVE METABOLIC [id number] 05:19:24* Test Item Value Reference Range Interpretation Comme nts GLUCOSE (test code = 2217) 172 MG/DL 70-99 H BUN (test code = 2207) 12 MG/DL 6-20 CREATININE (test code = 2213) 0.68 MG/DL 0.60-1.30 eGFR (2020 CKD-EPI) (test code = 57975) 112 ML/MIN/1.73 >60 CALC BUN/CREAT (test code = 223) 18 RATIO 6-28 SODIUM (test code = 223) 138 MEQ/L 133-146 POTASSIUM (test code = 222) 4.8 MEQ/L 3.5-5.4 CHLORIDE (test code = 2214) 99 MEQ/L 95-107 CARBON DIOXIDE (test code = 2205) 27 MEQ/L 19-31 CALCIUM (test code = 220) 9.8 MG/DL 8.5-10.5 PROTEIN, TOTAL (test code = 222) 7.1 G/DL 6.1-8.3 ALBUMIN (test code = 2201) 4.6 G/DL 3.5-5.2 CALC GLOBULIN (test code = 2240) 2.5 G/DL 1.9-3.7 CALC A/G RATIO (test code = 2234) 1.8 RATIO 1.0-2.6 BILIRUBIN, TOTAL (test code = 220) 0.4 MG/DL <=1.2 ALKALINE PHOSPHATASE (test code = 2204) 88 U/L 40-113 AST (test code = 2218) 61 U/L 9-40 H ALT (test code = 2219) 47 U/L 5-40 H LIPID [id number] 05:19:24* Test Item Value Reference Range Interpretation Comme nts CHOLESTEROL (test code = 2210) 245 MG/DL <200 H TRIGLYCERIDES (test code = 2232) 235 MG/DL <150 H HDL CHOLESTEROL (test code = 2220) 55 MG/DL >39 CALC LDL CHOL (test code = 223) 150 MG/DL <100 H NOTE: CALCULATED LDL IS BASED ON LIANNE-REYES METHOD WHICHINCLUDES ADJUSTABLE TRIGLYCERIDE:VLDL CHOLESTEROL RATIO.THIS FACTOR VARIES BY MEASURED TRIGLYCERIDE AND NON-HDLCHOLESTEROL CONCENTRATIONS WITH INCREASED CALCULATED LDL SEENIN HIGHER TRIGLYCERIDE OR LOWER NON-HDL SPECIMENS. FOR MOREINFORMATION, SEE CLIENT ANNOUNCEMENT AT [email or web address] RISK RATIO LDL/HDL (test code = 2238) 2.73 RATIO <3.22 ALBUMIN/CREATININE RATIO, URINE, [id number] 05:11:57* Test Item Value Reference Range Interpretation Comme nts CREATININE, URINE, CONC. (test code = 2072) 243.2 MG/DL NOT ESTAB ALBUMIN, URINE, RANDOM (test code = 38814) 4.3 MG/DL NOT ESTAB CALC ALBUMIN/CREAT, RND (test code = 79648) 18 MG/G <30 Note: Albumin/Cr eatinine ratio reference interval reflects ADA and NKF guidelines. UNLESS OTHERWISE INDICATED, ALL TESTING PERFORMED AT [facility] [address] [place] [address] GAMING COMMISSIONER: SHWETHA FLOWERS M.D. [place] NUMBER [id number] [facility] [place]. [id number] HEMOGLOBIN [id number] 03:11:30* Test Item Value Reference Range Interpretation Comme nts HEMOGLOBIN A1c (test code = 88016) 7.2 % 4.2-5.6 H [employer]IATION GUIDELINES FOR HGB A1C: PREDIABETES/INCREASED RISK . . . . . . . 5.7-6.4% DIAGNOSIS OF DIABETES . . . . . . . . . >=6.5% WITH CONFIRMATION OR APPROPRIATE SYMPTOMS NOTE: ASSAY MAY BE AFFECTED BY HEMOGLOBINOPATHIES (SICKLE CELL ANEMIA, S-C DISEASE, OTHERS) OR ARTIFICIALLY LOWERED BY DECREASED RED CELL SURVIVAL (HEMOLYTIC ANEMIAS, BLOOD LOSS, ETC.). CONSIDER ALTERNATE TESTING OR LABORATORY CONSULTATION. COMPREHENSIVE METABOLIC [id number] 00:00:00* Test Item Value Reference Range Interpretation Comme nts GLUCOSE (test code = 2217) 172 MG/DL BUN (test code = 2208) 12 MG/DL CREATININE (test code = 2214) 0.68 MG/DL eGFR (2020 CKD-EPI) (test code = 13733) 112 ML/MIN/1.73 CALC BUN/CREAT (test code = 2235) 18 RATIO SODIUM (test code = 2231) 138 MEQ/L POTASSIUM (test code = 2228) 4.8 MEQ/L CHLORIDE (test code = 2215) 99 MEQ/L CARBON DIOXIDE (test code = 2206) 27 MEQ/L CALCIUM (test code = 2209) 9.8 MG/DL PROTEIN, TOTAL (test code = 2229) 7.1 G/DL ALBUMIN (test code = 2201) 4.6 G/DL CALC GLOBULIN (test code = 2240) 2.5 G/DL CALC A/G RATIO (test code = 2234) 1.8 RATIO BILIRUBIN, TOTAL (test code = 2207) 0.4 MG/DL ALKALINE PHOSPHATASE (test code = 2204) 88 U/L AST (test code = 2218) 61 U/L ALT (test code = 2219) 47 U/L Cosmo NievesTSH, THIRD [id number] 00:00:00* Test Item Value Reference Range Interpretation Comme nts TSH, THIRD GENERATION (test code = 2821) 1.670 UIU/ML Cosmo NievesHEMOGLOBIN [id number] 00:00:00* Test Item Value Reference Range Interpretation Comme nts HEMOGLOBIN A1c (test code = 66248) 7.2 % Cosmo NievesLIPID [id number] 00:00:00* Test Item Value Reference Range Interpretation Comme nts CHOLESTEROL (test code = 2210) 245 MG/DL TRIGLYCERIDES (test code = 2232) 235 MG/DL HDL CHOLESTEROL (test code = 2220) 55 MG/DL CALC LDL CHOL (test code = 2237) 150 MG/DL RISK RATIO LDL/HDL (test cod e = 2238) 2.73 RATIO Cosmo NievesALBUMIN/CREATININE RATIO, RANDOM [id number] 00:00:00* Test Item Value Reference Range Interpretation Comme nts CREATININE, URINE, CONC. (te st code = 2072) 243.2 MG/DL ALBUMIN, URINE, RANDOM (test code = 28500) 4.3 MG/DL CALC ALBUMIN/CREAT, RND (naz t code = 31581) 18 MG/G Cosmo NievesCOMPREHENSIVE METABOLIC [id number] 00:00:00* Test Item Value Reference Range Interpretation Comme nts GLUCOSE (test code = 2217) 172 MG/DL BUN (test code = 2208) 12 MG/DL CREATININE (test code = 2214) 0.68 MG/DL eGFR (2020 CKD-EPI) (test code = 01527) 112 ML/MIN/1.73 CALC BUN/CREAT (test code = 2235) 18 RATIO SODIUM (test code = 2231) 138 MEQ/L POTASSIUM (test code = 2228) 4.8 MEQ/L CHLORIDE (test code = 2215) 99 MEQ/L CARBON DIOXIDE (test code = 2206) 27 MEQ/L CALCIUM (test code = 2209) 9.8 MG/DL PROTEIN, TOTAL (test code = 2229) 7.1 G/DL ALBUMIN (test code = 2201) 4.6 G/DL CALC GLOBULIN (test code = 2240) 2.5 G/DL CALC A/G RATIO (test code = 2234) 1.8 RATIO BILIRUBIN, TOTAL (test code = 2207) 0.4 MG/DL ALKALINE PHOSPHATASE (test code = 2204) 88 U/L AST (test code = 2218) 61 U/L ALT (test code = 2219) 47 U/L Cosmo NievesTSH, THIRD [id number] 00:00:00* Test Item Value Reference Range Interpretation Comme [facility] TSH, THIRD GENERATION (test code = 2821) 1.670 UIU/ML Cosmo NievesHEMOGLOBIN [id number] 00:00:00* Test Item Value Reference Range Interpretation Comme nts HEMOGLOBIN A1c (test code = 73064) 7.2 % Cosmo NievesLIPID [id number] 00:00:00* Test Item Value Reference Range Interpretation Comme nts CHOLESTEROL (test code = 2210) 245 MG/DL TRIGLYCERIDES (test code = 2232) 235 MG/DL HDL CHOLESTEROL (test code = 2220) 55 MG/DL CALC LDL CHOL (test code = 2237) 150 MG/DL RISK RATIO LDL/HDL (test cod e = 2238) 2.73 RATIO Cosmo NievesALBUMIN/CREATININE RATIO, RANDOM [id number] 00:00:00* Test Item Value Reference Range Interpretation Comme nts CREATININE, URINE, CONC. (te st code = 2072) 243.2 MG/DL ALBUMIN, URINE, RANDOM (test code = 44144) 4.3 MG/DL CALC ALBUMIN/CREAT, RND ([facility] t code = 69684) 18 MG/G Cosmo Martin AustinHEMOGLOBIN [id number] 04:59:44* Test Item Value Reference Range Interpretation Comme nts HEMOGLOBIN A1c (test code = 37671) 6.5 % 4.2-5.6 H [employer]IATION GUIDELINES FOR HGB A1C: PREDIABETES/INCREASED RISK . . . . . . . 5.7-6.4% DIAGNOSIS OF DIABETES . . . . . . . . . >=6.5% WITH CONFIRMATION OR APPROPRIATE SYMPTOMS NOTE: ASSAY MAY BE AFFECTED BY HEMOGLOBINOPATHIES (SICKLE CELL ANEMIA, S-C DISEASE, OTHERS) OR ARTIFICIALLY LOWERED BY DECREASED RED CELL SURVIVAL (HEMOLYTIC ANEMIAS, BLOOD LOSS, ETC.). CONSIDER ALTERNATE TESTING OR LABORATORY CONSULTATION. LIPID [id number] 03:50:06* Test Item Value Reference Range Interpretation Comme nts CHOLESTEROL (test code = 2210) 187 MG/DL <200 TRIGLYCERIDES (test code = 2232) 197 MG/DL <150 H HDL CHOLESTEROL (test code = 2220) 41 MG/DL >39 CALC LDL CHOL (test code = 2237) 114 MG/DL <100 H NOTE: CALCULATED LDL IS BASED ON LIANNE-REYES METHOD WHICHINCLUDES ADJUSTABLE TRIGLYCERIDE:VLDL CHOLESTEROL RATIO.THIS FACTOR VARIES BY MEASURED TRIGLYCERIDE AND NON-HDLCHOLESTEROL CONCENTRATIONS WITH INCREASED CALCULATED LDL SEENIN HIGHER TRIGLYCERIDE OR LOWER NON-HDL SPECIMENS. FOR MOREINFORMATION, SEE CLIENT ANNOUNCEMENT AT [email or web address] RISK RATIO LDL/HDL (test code = 2238) 2.78 RATIO <3.22 COMPREHENSIVE METABOLIC [id number] 03:50:06* Test Item Value Reference Range Interpretation Comme nts GLUCOSE (test code = 2217) 184 MG/DL 70-99 H BUN (test code = 2208) 10 MG/DL 6-20 CREATININE (test code = 2214) 0.85 MG/DL 0.60-1.30 eGFR (2020 CKD-EPI) (test code = 31062) 89 ML/MIN/1.73 >60 CALC BUN/CREAT (test code = 2235) 12 RATIO 6-28 SODIUM (test code = 223) 142 MEQ/L 133-146 POTASSIUM (test code = 2228) 4.1 MEQ/L 3.5-5.4 CHLORIDE (test code = 2215) 102 MEQ/L 95-107 CARBON DIOXIDE (test code = 2206) 26 MEQ/L 19-31 CALCIUM (test code = 2209) 9.8 MG/DL 8.5-10.5 PROTEIN, TOTAL (test code = 2229) 6.9 G/DL 6.1-8.3 ALBUMIN (test code = 2201) 4.2 G/DL 3.5-5.2 CALC GLOBULIN (test code = 2240) 2.7 G/DL 1.9-3.7 CALC A/G RATIO (test code = 2234) 1.6 RATIO 1.0-2.6 BILIRUBIN, TOTAL (test code = 2207) 0.3 MG/DL See_Comment [Automated me ssage] The system which generated this result transmitted reference range: <=1.2. The reference range was not used to interpret this result as normal/abnormal. ALKALINE PHOSPHATASE (test code = 2204) 71 U/L 40-112 AST (test code = 2218) 39 U/L 9-40 ALT (test code = 2219) 46 U/L 5-40 H UNLESS OTHERWISE INDICATED, ALL TESTING [facility] [address] [place] [address] GAMING COMMISSIONER: CHRISTINA MORALES M.D. CLIA NUMBER [id number] [facility] [place]. [id number] LIPID [id number] 00:00:00* Test Item Value Reference Range Interpretation Comme nts CHOLESTEROL (test code = 2210) 187 MG/DL TRIGLYCERIDES (test code = 2232) 197 MG/DL HDL CHOLESTEROL (test code = 2220) 41 MG/DL CALC LDL CHOL (test code = 2237) 114 MG/DL RISK RATIO LDL/HDL (test cod e = 2238) 2.78 RATIO Cosmo NievesCOMPREHENSIVE METABOLIC [id number] 00:00:00* Test Item Value Reference Range Interpretation Comme nts GLUCOSE (test code = 2217) 184 MG/DL BUN (test code = 2208) 10 MG/DL CREATININE (test code = 2214) 0.85 MG/DL eGFR (2020 CKD-EPI) (test co de = 12215) 89 ML/MIN/1.73 CALC BUN/CREAT (test code = 2235) 12 RATIO SODIUM (test code = 2231) 142 MEQ/L POTASSIUM (test code = 2228) 4.1 MEQ/L CHLORIDE (test code = 2215) 102 MEQ/L CARBON DIOXIDE (test code = 2206) 26 MEQ/L CALCIUM (test code = 2209) 9.8 MG/DL PROTEIN, TOTAL (test code = 2229) 6.9 G/DL ALBUMIN (test code = 2201) 4.2 G/DL CALC GLOBULIN (test code = 2240) 2.7 G/DL CALC A/G RATIO (test code = 2234) 1.6 RATIO BILIRUBIN, TOTAL (test code = 2207) 0.3 MG/DL ALKALINE PHOSPHATASE (test code = 2204) 71 U/L AST (test code = 2218) 39 U/L ALT (test code = 2219) 46 U/L Cosmo NievesHEMOGLOBIN [id number] 00:00:00* Test Item Value Reference Range Interpretation Comme nts HEMOGLOBIN A1c (test code = 71188) 6.5 % Cosmo NievesLIPID [id number] 00:00:00* Test Item Value Reference Range Interpretation Comme nts CHOLESTEROL (test code = 2210) 187 MG/DL TRIGLYCERIDES (test code = 2232) 197 MG/DL HDL CHOLESTEROL (test code = 2220) 41 MG/DL CALC LDL CHOL (test code = 2237) 114 MG/DL RISK RATIO LDL/HDL (test cod e = 2238) 2.78 RATIO Cosmo NievesCOMPREHENSIVE METABOLIC [id number] 00:00:00* Test Item Value Reference Range Interpretation Comme nts GLUCOSE (test code = 2217) 184 MG/DL BUN (test code = 2208) 10 MG/DL CREATININE (test code = 2214) 0.85 MG/DL eGFR (2020 CKD-EPI) (test co de = 35504) 89 ML/MIN/1.73 CALC BUN/CREAT (test code = 2235) 12 RATIO SODIUM (test code = 2231) 142 MEQ/L POTASSIUM (test code = 2228) 4.1 MEQ/L CHLORIDE (test code = 2215) 102 MEQ/L CARBON DIOXIDE (test code = 2206) 26 MEQ/L CALCIUM (test code = 2209) 9.8 MG/DL PROTEIN, TOTAL (test code = 2229) 6.9 G/DL ALBUMIN (test code = 2201) 4.2 G/DL CALC GLOBULIN (test code = 2240) 2.7 G/DL CALC A/G RATIO (test code = 2234) 1.6 RATIO BILIRUBIN, TOTAL (test code = 2207) 0.3 MG/DL ALKALINE PHOSPHATASE (test code = 2204) 71 U/L AST (test code = 2218) 39 U/L ALT (test code = 2219) 46 U/L Cosmo Martin AustinHEMOGLOBIN [id number] 00:00:00* Test Item Value Reference Range Interpretation Comme nts HEMOGLOBIN A1c (test code = 95651) 6.5 % Cosmo Martin AustinHEMOGLOBIN [id number] 00:00:00* Test Item Value Reference Range Interpretation Comme nts HEMOGLOBIN A1c (test code = 36149) 6.5 % LIPID [id number] 00:00:00* Test Item Value Reference Range Interpretation Comme nts CHOLESTEROL (test code = 2210) 187 MG/DL TRIGLYCERIDES (test code = 2232) 197 MG/DL HDL CHOLESTEROL (test code = 2220) 41 MG/DL CALC LDL CHOL (test code = 2237) 114 MG/DL RISK RATIO LDL/HDL (test cod e = 2238) 2.78 RATIO COMPREHENSIVE METABOLIC [id number] 00:00:00* Test Item Value Reference Range Interpretation Comme nts GLUCOSE (test code = 2217) 184 MG/DL BUN (test code = 2208) 10 MG/DL CREATININE (test code = 2214) 0.85 MG/DL eGFR (2020 CKD-EPI) (test co de = 93838) 89 ML/MIN/1.73 CALC BUN/CREAT (test code = 2235) 12 RATIO SODIUM (test code = 2231) 142 MEQ/L POTASSIUM (test code = 2228) 4.1 MEQ/L CHLORIDE (test code = 2215) 102 MEQ/L CARBON DIOXIDE (test code = 2206) 26 MEQ/L CALCIUM (test code = 2209) 9.8 MG/DL PROTEIN, TOTAL (test code = 2229) 6.9 G/DL ALBUMIN (test code = 2201) 4.2 G/DL CALC GLOBULIN (test code = 2240) 2.7 G/DL CALC A/G RATIO (test code = 2234) 1.6 RATIO BILIRUBIN, TOTAL (test code = 2207) 0.3 MG/DL ALKALINE PHOSPHATASE (test code = 2204) 71 U/L AST (test code = 2218) 39 U/L ALT (test code = 2219) 46 U/L HEMOGLOBIN [id number] 04:36:49* Test Item Value Reference Range Interpretation Comme nts HEMOGLOBIN A1c (test code = 82792) 6.5 % 4.2-5.6 H [employer] GUIDELINES FOR HGB A1C: PREDIABETES/INCREASED RISK . . . . . . . 5.7-6.4% DIAGNOSIS OF DIABETES . . . . . . . . . >=6.5% WITH CONFIRMATION OR APPROPRIATE SYMPTOMS NOTE: ASSAY MAY BE AFFECTED BY HEMOGLOBINOPATHIES (SICKLE CELL ANEMIA, S-C DISEASE, OTHERS) OR ARTIFICIALLY LOWERED BY DECREASED RED CELL SURVIVAL (HEMOLYTIC ANEMIAS, BLOOD LOSS, ETC.). CONSIDER ALTERNATE TESTING OR LABORATORY CONSULTATION. UNLESS OTHERWISE INDICATED, ALL TESTING PERFORMED [facility] [employer] [address] [place] [address] GAMING COMMISSIONER: CHRISTINA MORALES M.D. CLIA NUMBER [id number] [facility] [place] [id number] COMPREHENSIVE METABOLIC [id number] 03:37:53* Test Item Value Reference Range Interpretation Comme nts GLUCOSE (test code = 7) 113 MG/DL 70-99 H BUN (test code = 8) 11 MG/DL 6-20 CREATININE (test code = 2214) 0.76 MG/DL 0.60-1.30 eGFR (2020 CKD-EPI) (test code = 97462) 102 ML/MIN/1.73 >60 CALC BUN/CREAT (test code = 2235) 14 RATIO 6-28 SODIUM (test code = 223) 139 MEQ/L 133-146 POTASSIUM (test code = 2228) 4.4 MEQ/L 3.5-5.4 CHLORIDE (test code = 2215) 101 MEQ/L 95-107 CARBON DIOXIDE (test code = 2206) 25 MEQ/L 19-31 CALCIUM (test code = 2209) 9.7 MG/DL 8.5-10.5 PROTEIN, TOTAL (test code = 2228) 6.9 G/DL 6.1-8.3 ALBUMIN (test code = 220) 4.2 G/DL 3.5-5.2 CALC GLOBULIN (test code = 2240) 2.7 G/DL 1.9-3.7 CALC A/G RATIO (test code = 2234) 1.6 RATIO 1.0-2.6 BILIRUBIN, TOTAL (test code = 2207) 0.3 MG/DL See_Comment [Automated me ssage] The system which generated this result transmitted reference range: <=1.2. The reference range was not used to interpret this result as normal/abnormal. ALKALINE PHOSPHATASE (test code = 2203) 72 U/L 40-112 AST (test code = 2218) 24 U/L 9-40 ALT (test code = 2219) 27 U/L 5-40 LIPID [id number] 03:37:53* Test Item Value Reference Range Interpretation Comme nts CHOLESTEROL (test code = 0) 217 MG/DL <200 H TRIGLYCERIDES (test code = 2232) 226 MG/DL <150 H HDL CHOLESTEROL (test code = 2219) 45 MG/DL >39 CALC LDL CHOL (test code = 2236) 136 MG/DL <100 H NOTE: CALCULATED LDL IS BASED ON LIANNE-REYES METHOD WHICHINCLUDES ADJUSTABLE TRIGLYCERIDE:VLDL CHOLESTEROL RATIO.THIS FACTOR VARIES BY MEASURED TRIGLYCERIDE AND NON-HDLCHOLESTEROL CONCENTRATIONS WITH INCREASED CALCULATED LDL SEENIN HIGHER TRIGLYCERIDE OR LOWER NON-HDL SPECIMENS. FOR MOREINFORMATION, SEE CLIENT ANNOUNCEMENT AT [email or web address] RISK RATIO LDL/HDL (test code = 2237) 3.02 RATIO <3.22 CBC W/AUTO DIFF WITH [id number] 03:37:16* Test Item Value Reference Range Interpretation Comme nts WBC (test code = 1001) 12.0 K/UL 3.5-11.0 H RBC (test code = 1002) 4.65 M/UL 3.80-5.40 HEMOGLOBIN (test code = 1003) 11.7 G/DL 11.5-15.5 HEMATOCRIT (test code = 1004) 34.9 % 34.0-45.0 MCV (test code = 1005) 75.1 fL 80.0-99.0 L MCH (test code = 1006) 25.2 PG 25.0-33.0 MCHC (test code = 1007) 33.5 G/DL 31.0-36.0 RDW (test code = 1038) 18.2 % 11.5-15.0 H NEUTROPHILS (test code = 1008) 65.0 % LYMPHOCYTES (test code = 1010) 24.6 % MONOCYTES (test code = 1011) 6.3 % EOSINOPHILS (test code = 1012) 3.1 % BASOPHILS (test code = 1013) 0.5 % IMMATURE GRANULOCYTES (test code = 1036) 0.5 % NUCLEATED RBCS (test code = 1065) 0.0 /100 WBC'S See_Comment [Automated messa ge] The system which generated this result transmitted reference range: 0.0. The reference range was not used to interpret this result as normal/abnormal. PLATELET COUNT (test code = 1015) 306 K/UL 130-400 ABSOLUTE NEUTROPHILS (test code = 1066) 7.81 K/UL 1.50-7.50 H ABSOLUTE LYMPHOCYTES (test code = 1067) 2.95 K/UL 1.00-4.00 ABSOLUTE MONOCYTES (test code = 1068) 0.76 K/UL 0.20-1.00 ABSOLUTE EOSINOPHILS (test code = 1040) 0.37 K/UL 0.00-0.50 ABSOLUTE BASOPHILS (test code = 1069) 0.06 K/UL 0.00-0.20 ABS IMMATURE GRANULOCYTES (test code = 1020) 0.06 K/UL 0.00-0.10 ABS NUCLEATED RBCS (test code = 40380) 0.00 K/UL 0.00-0.11 COMPREHENSIVE METABOLIC [id number] 00:00:00* Test Item Value Reference Range Interpretation Comme nts GLUCOSE (test code = 2217) 113 MG/DL BUN (test code = 2208) 11 MG/DL CREATININE (test code = 2214) 0.76 MG/DL eGFR (2020 CKD-EPI) (test code = 74537) 102 ML/MIN/1.73 CALC BUN/CREAT (test code = 2235) 14 RATIO SODIUM (test code = 2231) 139 MEQ/L POTASSIUM (test code = 2228) 4.4 MEQ/L CHLORIDE (test code = 2215) 101 MEQ/L CARBON DIOXIDE (test code = 2206) 25 MEQ/L CALCIUM (test code = 2209) 9.7 MG/DL PROTEIN, TOTAL (test code = 2229) 6.9 G/DL ALBUMIN (test code = 2201) 4.2 G/DL CALC GLOBULIN (test code = 2240) 2.7 G/DL CALC A/G RATIO (test code = 2234) 1.6 RATIO BILIRUBIN, TOTAL (test code = 2207) 0.3 MG/DL ALKALINE PHOSPHATASE (test code = 2204) 72 U/L AST (test code = 2218) 24 U/L ALT (test code = 2219) 27 U/L Cosmo NievesLIPID [id number] 00:00:00* Test Item Value Reference Range Interpretation Comme nts CHOLESTEROL (test code = 2210) 217 MG/DL TRIGLYCERIDES (test code = 2232) 226 MG/DL HDL CHOLESTEROL (test code = 2220) 45 MG/DL CALC LDL CHOL (test code = 2237) 136 MG/DL RISK RATIO LDL/HDL (test cod e = 2238) 3.02 RATIO Cosmo NievesHEMOGLOBIN [id number] 00:00:00* Test Item Value Reference Range Interpretation Comme nts HEMOGLOBIN A1c (test code = 33637) 6.5 % Cosmo NievesCBC W/AUTO [id number] 00:00:00* Test Item Value Reference Range Interpretation Comme nts WBC (test code = 1001) 12.0 K/UL RBC (test code = 1002) 4.65 M/UL HEMOGLOBIN (test code = 1003) 11.7 G/DL HEMATOCRIT (test code = 1004) 34.9 % MCV (test code = 1005) 75.1 fL MCH (test code = 1006) 25.2 PG MCHC (test code = 1007) 33.5 G/DL RDW (test code = 1038) 18.2 % NEUTROPHILS (test code = 1008) 65.0 % LYMPHOCYTES (test code = 1010) 24.6 % MONOCYTES (test code = 1011) 6.3 % EOSINOPHILS (test code = 1012) 3.1 % BASOPHILS (test code = 1013) 0.5 % IMMATURE GRANULOCYTES (test code = 1036) 0.5 % NUCLEATED RBCS (test code = 1065) 0.0 /100WBC'S PLATELET COUNT (test code = 1015) 306 K/UL ABSOLUTE NEUTROPHILS (test c ode = 1066) 7.81 K/UL ABSOLUTE LYMPHOCYTES (test c ode = 1067) 2.95 K/UL ABSOLUTE MONOCYTES (test cod e = 1068) 0.76 K/UL ABSOLUTE EOSINOPHILS (test c ode = 1040) 0.37 K/UL ABSOLUTE BASOPHILS (test cod e = 1069) 0.06 K/UL ABS IMMATURE GRANULOCYTES (t est code = 1020) 0.06 K/UL ABS NUCLEATED RBCS (test cod e = 17190) 0.00 K/UL Cosmo NievesCOMPREHENSIVE METABOLIC [id number] 00:00:00* Test Item Value Reference Range Interpretation Comme nts GLUCOSE (test code = 2217) 113 MG/DL BUN (test code = 2208) 11 MG/DL CREATININE (test code = 2214) 0.76 MG/DL eGFR (2020 CKD-EPI) (test code = 01640) 102 ML/MIN/1.73 CALC BUN/CREAT (test code = 2235) 14 RATIO SODIUM (test code = 2231) 139 MEQ/L POTASSIUM (test code = 2228) 4.4 MEQ/L CHLORIDE (test code = 2215) 101 MEQ/L CARBON DIOXIDE (test code = 2206) 25 MEQ/L CALCIUM (test code = 2209) 9.7 MG/DL PROTEIN, TOTAL (test code = 2229) 6.9 G/DL ALBUMIN (test code = 2201) 4.2 G/DL CALC GLOBULIN (test code = 2240) 2.7 G/DL CALC A/G RATIO (test code = 2234) 1.6 RATIO BILIRUBIN, TOTAL (test code = 2207) 0.3 MG/DL ALKALINE PHOSPHATASE (test code = 2204) 72 U/L AST (test code = 2218) 24 U/L ALT (test code = 2219) 27 U/L Cosmo NievesLIPID [id number] 00:00:00* Test Item Value Reference Range Interpretation Comme nts CHOLESTEROL (test code = 2210) 217 MG/DL TRIGLYCERIDES (test code = 2232) 226 MG/DL HDL CHOLESTEROL (test code = 2220) 45 MG/DL CALC LDL CHOL (test code = 2237) 136 MG/DL RISK RATIO LDL/HDL (test cod e = 2238) 3.02 RATIO Cosmo NievesHEMOGLOBIN [id number] 00:00:00* Test Item Value Reference Range Interpretation Comme nts HEMOGLOBIN A1c (test code = 00168) 6.5 % Cosmo NievesCBC W/AUTO [id number] 00:00:00* Test Item Value Reference Range Interpretation Comme nts WBC (test code = 1001) 12.0 K/UL RBC (test code = 1002) 4.65 M/UL HEMOGLOBIN (test code = 1003) 11.7 G/DL HEMATOCRIT (test code = 1004) 34.9 % MCV (test code = 1005) 75.1 fL MCH (test code = 1006) 25.2 PG MCHC (test code = 1007) 33.5 G/DL RDW (test code = 1038) 18.2 % NEUTROPHILS (test code = 1008) 65.0 % LYMPHOCYTES (test code = 1010) 24.6 % MONOCYTES (test code = 1011) 6.3 % EOSINOPHILS (test code = 1012) 3.1 % BASOPHILS (test code = 1013) 0.5 % IMMATURE GRANULOCYTES (test code = 1036) 0.5 % NUCLEATED RBCS (test code = 1065) 0.0 /100WBC'S PLATELET COUNT (test code = 1015) 306 K/UL ABSOLUTE NEUTROPHILS (test c ode = 1066) 7.81 K/UL ABSOLUTE LYMPHOCYTES (test c ode = 1067) 2.95 K/UL ABSOLUTE MONOCYTES (test cod e = 1068) 0.76 K/UL ABSOLUTE EOSINOPHILS (test c ode = 1040) 0.37 K/UL ABSOLUTE BASOPHILS (test cod e = 1069) 0.06 K/UL ABS IMMATURE GRANULOCYTES (t est code = 1020) 0.06 K/UL ABS NUCLEATED RBCS (test cod e = 74877) 0.00 K/UL Cosmo NievesCBC W/AUTO [id number] 00:00:00* Test Item Value Reference Range Interpretation Comme nts WBC (test code = 1001) 12.0 K/UL RBC (test code = 1002) 4.65 M/UL HEMOGLOBIN (test code = 1003) 11.7 G/DL HEMATOCRIT (test code = 1004) 34.9 % MCV (test code = 1005) 75.1 fL MCH (test code = 1006) 25.2 PG MCHC (test code = 1007) 33.5 G/DL RDW (test code = 1038) 18.2 % NEUTROPHILS (test code = 1008) 65.0 % LYMPHOCYTES (test code = 1010) 24.6 % MONOCYTES (test code = 1011) 6.3 % EOSINOPHILS (test code = 1012) 3.1 % BASOPHILS (test code = 1013) 0.5 % IMMATURE GRANULOCYTES (test code = 1036) 0.5 % NUCLEATED RBCS (test code = 1065) 0.0 /100WBC'S PLATELET COUNT (test code = 1015) 306 K/UL ABSOLUTE NEUTROPHILS (test c ode = 1066) 7.81 K/UL ABSOLUTE LYMPHOCYTES (test c ode = 1067) 2.95 K/UL ABSOLUTE MONOCYTES (test cod e = 1068) 0.76 K/UL ABSOLUTE EOSINOPHILS (test c ode = 1040) 0.37 K/UL ABSOLUTE BASOPHILS (test cod e = 1069) 0.06 K/UL ABS IMMATURE GRANULOCYTES (t est code = 1020) 0.06 K/UL ABS NUCLEATED RBCS (test cod e = 96048) 0.00 K/UL COMPREHENSIVE METABOLIC [id number] 00:00:00* Test Item Value Reference Range Interpretation Comme nts GLUCOSE (test code = 2217) 113 MG/DL BUN (test code = 2208) 11 MG/DL CREATININE (test code = 2214) 0.76 MG/DL eGFR (2020 CKD-EPI) (test code = 18664) 102 ML/MIN/1.73 CALC BUN/CREAT (test code = 2235) 14 RATIO SODIUM (test code = 2231) 139 MEQ/L POTASSIUM (test code = 2228) 4.4 MEQ/L CHLORIDE (test code = 2215) 101 MEQ/L CARBON DIOXIDE (test code = 2206) 25 MEQ/L CALCIUM (test code = 2209) 9.7 MG/DL PROTEIN, TOTAL (test code = 2229) 6.9 G/DL ALBUMIN (test code = 2201) 4.2 G/DL CALC GLOBULIN (test code = 2240) 2.7 G/DL CALC A/G RATIO (test code = 2234) 1.6 RATIO BILIRUBIN, TOTAL (test code = 2207) 0.3 MG/DL ALKALINE PHOSPHATASE (test code = 2204) 72 U/L AST (test code = 2218) 24 U/L ALT (test code = 2219) 27 U/L LIPID [id number] 00:00:00* Test Item Value Reference Range Interpretation Comme nts CHOLESTEROL (test code = 2210) 217 MG/DL TRIGLYCERIDES (test code = 2232) 226 MG/DL HDL CHOLESTEROL (test code = 2220) 45 MG/DL CALC LDL CHOL (test code = 2237) 136 MG/DL RISK RATIO LDL/HDL (test cod e = 2238) 3.02 RATIO HEMOGLOBIN [id number] 00:00:00* Test Item Value Reference Range Interpretation Comme nts HEMOGLOBIN A1c (test code = 71873) 6.5 % CBC W/AUTO [id number] 00:00:00* Test Item Value Reference Range Interpretation Comme nts WBC (test code = 1001) 12.0 K/UL RBC (test code = 1002) 4.65 M/UL HEMOGLOBIN (test code = 1003) 11.7 G/DL HEMATOCRIT (test code = 1004) 34.9 % MCV (test code = 1005) 75.1 fL MCH (test code = 1006) 25.2 PG MCHC (test code = 1007) 33.5 G/DL RDW (test code = 1038) 18.2 % NEUTROPHILS (test code = 1008) 65.0 % LYMPHOCYTES (test code = 1010) 24.6 % MONOCYTES (test code = 1011) 6.3 % EOSINOPHILS (test code = 1012) 3.1 % BASOPHILS (test code = 1013) 0.5 % IMMATURE GRANULOCYTES (test code = 1036) 0.5 % NUCLEATED RBCS (test code = 1065) 0.0 /100WBC'S PLATELET COUNT (test code = 1015) 306 K/UL ABSOLUTE NEUTROPHILS (test c ode = 1066) 7.81 K/UL ABSOLUTE LYMPHOCYTES (test c ode = 1067) 2.95 K/UL ABSOLUTE MONOCYTES (test cod e = 1068) 0.76 K/UL ABSOLUTE EOSINOPHILS (test c ode = 1040) 0.37 K/UL ABSOLUTE BASOPHILS (test cod e = 1069) 0.06 K/UL ABS IMMATURE GRANULOCYTES (t est code = 1020) 0.06 K/UL ABS NUCLEATED RBCS (test cod e = 52969) 0.00 K/UL COMPREHENSIVE METABOLIC [id number] 00:00:00* Test Item Value Reference Range Interpretation Comme nts GLUCOSE (test code = 2217) 113 MG/DL BUN (test code = 2208) 11 MG/DL CREATININE (test code = 2214) 0.76 MG/DL eGFR (2020 CKD-EPI) (test code = 47804) 102 ML/MIN/1.73 CALC BUN/CREAT (test code = 2235) 14 RATIO SODIUM (test code = 2231) 139 MEQ/L POTASSIUM (test code = 2228) 4.4 MEQ/L CHLORIDE (test code = 2215) 101 MEQ/L CARBON DIOXIDE (test code = 2206) 25 MEQ/L CALCIUM (test code = 2209) 9.7 MG/DL PROTEIN, TOTAL (test code = 2229) 6.9 G/DL ALBUMIN (test code = 2201) 4.2 G/DL CALC GLOBULIN (test code = 2240) 2.7 G/DL CALC A/G RATIO (test code = 2234) 1.6 RATIO BILIRUBIN, TOTAL (test code = 2207) 0.3 MG/DL ALKALINE PHOSPHATASE (test code = 2204) 72 U/L AST (test code = 2218) 24 U/L ALT (test code = 2219) 27 U/L LIPID [id number] 00:00:00* Test Item Value Reference Range Interpretation Comme nts CHOLESTEROL (test code = 2210) 217 MG/DL TRIGLYCERIDES (test code = 2232) 226 MG/DL HDL CHOLESTEROL (test code = 2220) 45 MG/DL CALC LDL CHOL (test code = 2237) 136 MG/DL RISK RATIO LDL/HDL (test cod e = 2238) 3.02 RATIO HEMOGLOBIN [id number] 00:00:00* Test Item Value Reference Range Interpretation Comme nts HEMOGLOBIN A1c (test code = 73849) 6.5 % CULTURE, [id number] 08:54:24SPECIMEN NUMBER: [id number] CULTURE, URINE SPECIMEN NUMBER: [id number] SPECIMEN COMMENT: URINE SOURCE: URINE REPORT STATUS: FINAL FINAL REPORT: 08/23/2021 10-50,000 CFU/ML UROGENITAL SAL PRESENT NO CO MMON PATHOGENS UNLESS OTHERWISE INDICATED, ALL TESTING PERFORMED [facility] [address] [place] [address] GAMING COMMISSIONER: CHRISTINA MORALES M.D. [place] NUMBER [id number] [facility] [place]. [id number] CULTURE, [id number] 00:00:00* Test Item Value Reference Range Interpretation Comme nts CULTURE, URINE (test code = 46787) SPECIMEN NUMBER: [id number] Cosmo SoLTURE, [id number] 00:00:00* Test Item Value Reference Range Interpretation Comme nts CULTURE, URINE (test code = 96616) SPECIMEN NUMBER: [id number] Cosmo NievesCULTURE, [id number] 00:00:00* Test Item Value Reference Range Interpretation Comme nts CULTURE, URINE (test code = 36254) SPECIMEN NUMBER: [id number] CULTURE, [id number] 00:00:00* Test Item Value Reference Range Interpretation Comme nts CULTURE, URINE (test code = 74511) SPECIMEN NUMBER: [id number] LIPID [id number] 00:00:00* Test Item Value Reference Range Interpretation Comme nts CHOLESTEROL (test code = 2210) 191 MG/DL TRIGLYCERIDES (test code = 2232) 193 MG/DL HDL CHOLESTEROL (test code = 2220) 43 MG/DL CALC LDL CHOL (test code = 2237) 117 MG/DL RISK RATIO LDL/HDL (test cod e = 2238) 2.72 RATIO Cosmo [id number] 00:00:00* Test Item Value Reference Range Interpretation Comme nts TSH, THIRD GENERATION (test code = 2821) 1.190 UIU/ML Cosmo NievesHEMOGLOBIN [id number] 00:00:00* Test Item Value Reference Range Interpretation Comme nts HEMOGLOBIN A1c (test code = 51331) 6.8 % Cosmo NievesLIPID [id number] 00:00:00* Test Item Value Reference Range Interpretation Comme nts CHOLESTEROL (test code = 2210) 191 MG/DL TRIGLYCERIDES (test code = 2232) 193 MG/DL HDL CHOLESTEROL (test code = 2220) 43 MG/DL CALC LDL CHOL (test code = 2237) 117 MG/DL RISK RATIO LDL/HDL (test cod e = 2238) 2.72 RATIO Cosmo Martin [id number] 00:00:00* Test Item Value Reference Range Interpretation Comme nts TSH, THIRD GENERATION (test code = 2821) 1.190 UIU/ML Cosmo Martin AustinHEMOGLOBIN [id number] 00:00:00* Test Item Value Reference Range Interpretation Comme nts HEMOGLOBIN A1c (test code = 47213) 6.8 % Cosmo Martin AustinHEMOGLOBIN [id number] 00:00:00* Test Item Value Reference Range Interpretation Comme nts HEMOGLOBIN A1c (test code = 58751) 6.8 % LIPID [id number] 00:00:00* Test Item Value Reference Range Interpretation Comme nts CHOLESTEROL (test code = 2210) 191 MG/DL TRIGLYCERIDES (test code = 2232) 193 MG/DL HDL CHOLESTEROL (test code = 2220) 43 MG/DL CALC LDL CHOL (test code = 2237) 117 MG/DL RISK RATIO LDL/HDL (test cod e = 2238) 2.72 RATIO [id number] 00:00:00* Test Item Value Reference Range Interpretation Comme nts TSH, THIRD GENERATION (test code = 2821) 1.190 UIU/ML HEMOGLOBIN [id number] 00:00:00* Test Item Value Reference Range Interpretation Comme nts HEMOGLOBIN A1c (test code = 52319) 6.8 % LIPID [id number] 00:00:00* Test Item Value Reference Range Interpretation Comme nts CHOLESTEROL (test code = 2210) 191 MG/DL TRIGLYCERIDES (test code = 2232) 193 MG/DL HDL CHOLESTEROL (test code = 2220) 43 MG/DL CALC LDL CHOL (test code = 2237) 117 MG/DL RISK RATIO LDL/HDL (test cod e = 2238) 2.72 RATIO [id number] 00:00:00* Test Item Value Reference Range Interpretation Comme nts TSH, THIRD GENERATION (test code = 2821) 1.190 UIU/ML COMP. METABOLIC PANEL ([id number] 16:24:00* Test Item Value Reference Range Interpretation Comme nts NA (test code = 6175325248) 137 mmol/L 135-145 K (test code = 7182270773) 4.1 mmol/L 3.5-5.0 CL (test code = 5128772913) 101 mmol/L 98-108 CO2 TOTAL (test code = 6402051901) 27 mmol/L 23-31 AGAP (test code = 7101061178) 2-16 BUN (test code = 4774222989) 10 mg/dL 7-23 GLUCOSE (test code = 7118825130) 195 mg/dL 70-110 H CREATININE (test code = 0413085602) 0.60 mg/dL 0.50-1.04 TOTAL BILI (test code = 9198759861) 0.6 mg/dL 0.1-1.1 CALCIUM (test code = 1439605478) 9.8 mg/dL 8.6-10.6 T PROTEIN (test code = 1370419610) 7.3 g/dL 6.3-8.2 ALBUMIN (test code = 1426238288) 4.4 g/dL 3.5-5.0 ALK PHOS (test code = 1704702256) 80 U/L 34-122 ALTv (test code = 1742-6) 35 U/L 5-35 AST(SGOT) (test code = 3702407570) 40 U/L 13-40 eGFR (test code = 9518450858) mL/min/1.73m2 EVGENY (test code = EVGENY) Association of Glomerular Filtration Rate (GFR) and Staging of Kidney Disease* + --+ --+ ------+| GFR (mL/min/1.73 m2) ?| With Kidney Damage ?| ?Without Kidney Damage+ --------+ --------+ +| ?>90 ?| ?Stage one ?| ? Normal ?+ ---+ ---+ -------+| ?60-89 ?| ?Stage two ?| ? Decreased GFR ? + --+ --+ ------+| ?30-59 ?| ?Stage three ?| ? Stage three ? + --+ --+ ------+| ?15-29 ?| ?Stage four ? | ? Stage four ?+ ---+ ---+ -------+| ?<15 (or dialysis) ? ?| ?Stage five ? | ? Stage five ?+ ---+ ---+ -------+ *Each stage assumes the associated GFR level has been in effect for at least three months. ?Stages 1 to 5, with or without kidney disease, indicate chronic kidney disease. Notes: Determination of stages one and two (with eGFR >59mL/min/1.73 m2) requires estimation of kidney damage for at least three months as defined by structural or functional abnormalities of the kidney, manifested by either:Pathological abnormalities or Markers of kidney damage (including abnormalities in the composition of the blood or urine or abnormalities in imaging tests). Lab Interpretation (test code = 19981-3) [id number] 16:23:39* Test Item Value Reference Range Interpretation Comme nts LIPASE (test code = 3265051554) 112 U/L 0-220 Lab Interpretation (test cod e = 10758-0) [facility] [id number] 16:18:37* Test Item Value Reference Range Interpretation Comme nts WBC (test code = 6690-2) See_Comment H [Automated message] The system which generated this result transmitted reference range: 4.30 - 11.10 10*3/?L. The reference range was not used to interpret this result as normal/abnormal. RBC (test code = 789-8) See_Comment [Automated message] The system which generated this result transmitted reference range: 3.93 - 5.25 10*6/?L. The reference range was not used to interpret this result as normal/abnormal. HGB (test code = 718-7) 12.3 g/dL 11.6-15.0 HCT (test code = 4544-3) 40.7 % 35.7-45.2 MCV (test code = 787-2) 77.7 fL 80.6-95.5 L MCH (test code = 785-6) 23.5 pg 25.9-32.8 L MCHC (test code = 786-4) 30.2 g/dL 31.6-35.1 L RDW-SD (test code = 61328-9) 48.1 fL 39.0-49.9 RDW-CV (test code = 788-0) 17.8 % 12.0-15.5 H PLT (test code = 777-3) See_Comment H [Automated message] The system which generated this result transmitted reference range: 166 - 358 10*3/?L. The reference range was not used to interpret this result as normal/abnormal. MPV (test code = 14395-2) 12.1 fL 9.5-12.9 NRBC/100 WBC (test code = 4151387436) See_Comment [Automated message] The system which generated this result transmitted reference range: 0.0 - 10.0 /100 WBCs. The reference range was not used to interpret this result as normal/abnormal. NRBC x10^3 (test code = 1413828829) <0.01 See_Comment [Automated message] The system which generated this result transmitted reference range: 10*3/?L. The reference range was not used to interpret this result as normal/abnormal. GRAN MAT (NEUT) % (test code = 770-8) 80.5 % IMM GRAN % (test code = 5592205018) 1.00 % LYMPH % (test code = 736-9) 13.0 % MONO % (test code = 5905-5) 3.8 % EOS % (test code = 713-8) 1.3 % BASO % (test code = 706-2) 0.4 % GRAN MAT x10^3(ANC) (test code = 5815635868) 12.47 10*3/uL 1.88-7.09 H IMM GRAN x10^3 (test code = 4999098166) 0.16 10*3/uL 0.00-0.06 H LYMPH x10^3 (test code = 731-0) 2.02 10*3/uL 1.32-3.29 MONO x10^3 (test code = 742-7) 0.59 10*3/uL 0.33-0.92 EOS x10^3 (test code = 711-2) 0.20 10*3/uL 0.03-0.39 BASO x10^3 (test code = 704-7) 0.06 10*3/uL 0.01-0.07 Lab Interpretation (test code = 67764-1) Abnormal [facility] [id number] 15:59:00* Test Item Value Reference Range Interpretation Comme nts POCT PREG (test code = 1605) Negative On board controls acceptable with C Line (test code = 3574) Present POCT PREG LOT # (test code = 3575) HCG [id number] POCT PREG TEST DATE ( test code = 3576) 08/15/2022 Lab Interpretation (test cod e = 27971-0) [id number]* Test Item Value Reference Range Interpretation Comme nts CHOLESTEROL (test code = 2210) 208 MG/DL TRIGLYCERIDES (test code = 2232) 140 MG/DL HDL CHOLESTEROL (test code = 2220) 48 MG/DL CALC LDL CHOL (test code = 2237) 134 MG/DL RISK RATIO LDL/HDL (test cod e = 2238) 2.79 RATIO Cosmo NievesCOMPREHENSIVE METABOLIC [id number] 00:00:00* Test Item Value Reference Range Interpretation Comme nts GLUCOSE (test code = 2217) 143 MG/DL BUN (test code = 2208) 10 MG/DL CREATININE (test code = 2214) 0.60 MG/DL eGFR AMER. (test cod e = 67733) 133 ML/MIN/1.73 eGFR NON- AMER. (test code = 63784) 115 ML/MIN/1.73 CALC BUN/CREAT (test code = 2235) 17 RATIO SODIUM (test code = 2231) 138 MEQ/L POTASSIUM (test code = 2228) 4.4 MEQ/L CHLORIDE (test code = 2215) 98 MEQ/L CARBON DIOXIDE (test code = 2206) 29 MEQ/L CALCIUM (test code = 2209) 9.6 MG/DL PROTEIN, TOTAL (test code = 2229) 6.7 G/DL ALBUMIN (test code = 2201) 4.4 G/DL CALC GLOBULIN (test code = 2240) 2.3 G/DL CALC A/G RATIO (test code = 2234) 1.9 RATIO BILIRUBIN, TOTAL (test code = 2207) 0.3 MG/DL ALKALINE PHOSPHATASE (test code = 2204) 78 U/L AST (test code = 2218) 38 U/L ALT (test code = 2219) 34 U/L Cosom [id number] 00:00:00* Test Item Value Reference Range Interpretation Comme nts TSH, THIRD GENERATION (test code = 2821) 1.940 UIU/ML Cosmo NievesMICROALBUMIN/CREATININE, RANDOM AND [id number] 00:00:00* Test Item Value Reference Range Interpretation Comme nts CREATININE, URINE, CONC. (te st code = 2072) 157.3 MG/DL ALBUMIN, URINE, RANDOM (test code = 76355) 0.6 MG/DL CALC ALBUMIN/CREAT, RND (naz t code = 66520) 4 MG/G Cosmo NievesCBC W/AUTO [id number] 00:00:00* Test Item Value Reference Range Interpretation Comme nts WBC (test code = 1001) 12.2 K/UL RBC (test code = 1002) 5.03 M/UL HEMOGLOBIN (test code = 1003) 11.6 G/DL HEMATOCRIT (test code = 1004) 37.7 % MCV (test code = 1005) 75.0 fL MCH (test code = 1006) 23.1 PG MCHC (test code = 1007) 30.8 G/DL RDW (test code = 1038) 16.5 % NEUTROPHILS (test code = 1008) 64.5 % LYMPHOCYTES (test code = 1010) 24.9 % MONOCYTES (test code = 1011) 5.8 % EOSINOPHILS (test code = 1012) 4.0 % BASOPHILS (test code = 1013) 0.5 % IMMATURE GRANULOCYTES (test code = 1036) 0.3 % NUCLEATED RBCS (test code = 1065) 0.0 /100WBC'S PLATELET COUNT (test code = 1015) 369 K/UL ABSOLUTE NEUTROPHILS (test c ode = 1066) 7.84 K/UL ABSOLUTE LYMPHOCYTES (test c ode = 1067) 3.02 K/UL ABSOLUTE MONOCYTES (test cod e = 1068) 0.71 K/UL ABSOLUTE EOSINOPHILS (test c ode = 1040) 0.48 K/UL ABSOLUTE BASOPHILS (test cod e = 1069) 0.06 K/UL ABS IMMATURE GRANULOCYTES (t est code = 1020) 0.04 K/UL ABS NUCLEATED RBCS (test cod e = 75280) 0.00 K/UL Cosmo NievesHIGH SENSITIVITY [id number] 00:00:00* Test Item Value Reference Range Interpretation Comme parisa HIGH SENSITIVITY CRP (test c ode = 53604) 41.5 MG/L Cosmo NievesCCP [id number] 00:00:00* Test Item Value Reference Range Interpretation Comme nts CCP IgG (test code = 30262) <0.5 U/ML Cosmo Dozier (ANTI-NUCLEAR AB) WITH REFLEX [id number] 00:00:00* Test Item Value Reference Range Interpretation Comme parisa ANTI-NUCLEAR ANTIBODIES (naz t code = 3506) NEGATIVE Cosmo NievesSEDIMENTATION [id number] 00:00:00* Test Item Value Reference Range Interpretation Comme parisa SEDIMENTATION RATE (test cod e = 1017) 44 MM/HOUR Cosmo NievesHEMOGLOBIN [id number] 00:00:00* Test Item Value Reference Range Interpretation Comme parisa HEMOGLOBIN A1c (test code = 77443) 7.9 % Cosmo NievesLIPID [id number] 00:00:00* Test Item Value Reference Range Interpretation Comme nts CHOLESTEROL (test code = 2210) 208 MG/DL TRIGLYCERIDES (test code = 2232) 140 MG/DL HDL CHOLESTEROL (test code = 2220) 48 MG/DL CALC LDL CHOL (test code = 2237) 134 MG/DL RISK RATIO LDL/HDL (test cod e = 2238) 2.79 RATIO Cosmo NievesCOMPREHENSIVE METABOLIC [id number] 00:00:00* Test Item Value Reference Range Interpretation Comme nts GLUCOSE (test code = 2217) 143 MG/DL BUN (test code = 2208) 10 MG/DL CREATININE (test code = 2214) 0.60 MG/DL eGFR AMER. (test cod e = 43053) 133 ML/MIN/1.73 eGFR NON- AMER. (test code = 24710) 115 ML/MIN/1.73 CALC BUN/CREAT (test code = 2235) 17 RATIO SODIUM (test code = 2231) 138 MEQ/L POTASSIUM (test code = 2228) 4.4 MEQ/L CHLORIDE (test code = 2215) 98 MEQ/L CARBON DIOXIDE (test code = 2206) 29 MEQ/L CALCIUM (test code = 2209) 9.6 MG/DL PROTEIN, TOTAL (test code = 2229) 6.7 G/DL ALBUMIN (test code = 2201) 4.4 G/DL CALC GLOBULIN (test code = 2240) 2.3 G/DL CALC A/G RATIO (test code = 2234) 1.9 RATIO BILIRUBIN, TOTAL (test code = 2207) 0.3 MG/DL ALKALINE PHOSPHATASE (test code = 2204) 78 U/L AST (test code = 2218) 38 U/L ALT (test code = 2219) 34 U/L Cosmo [id number] 00:00:00* Test Item Value Reference Range Interpretation Comme nts TSH, THIRD GENERATION (test code = 2821) 1.940 UIU/ML Cosmo NievesMICROALBUMIN/CREATININE, RANDOM AND [id number] 00:00:00* Test Item Value Reference Range Interpretation Comme nts CREATININE, URINE, CONC. (te st code = 2072) 157.3 MG/DL ALBUMIN, URINE, RANDOM (test code = 32644) 0.6 MG/DL CALC ALBUMIN/CREAT, RND (naz t code = 27908) 4 MG/G Cosmo NievesCBC W/AUTO [id number] 00:00:00* Test Item Value Reference Range Interpretation Comme nts WBC (test code = 1001) 12.2 K/UL RBC (test code = 1002) 5.03 M/UL HEMOGLOBIN (test code = 1003) 11.6 G/DL HEMATOCRIT (test code = 1004) 37.7 % MCV (test code = 1005) 75.0 fL MCH (test code = 1006) 23.1 PG MCHC (test code = 1007) 30.8 G/DL RDW (test code = 1038) 16.5 % NEUTROPHILS (test code = 1008) 64.5 % LYMPHOCYTES (test code = 1010) 24.9 % MONOCYTES (test code = 1011) 5.8 % EOSINOPHILS (test code = 1012) 4.0 % BASOPHILS (test code = 1013) 0.5 % IMMATURE GRANULOCYTES (test code = 1036) 0.3 % NUCLEATED RBCS (test code = 1065) 0.0 /100WBC'S PLATELET COUNT (test code = 1015) 369 K/UL ABSOLUTE NEUTROPHILS (test c ode = 1066) 7.84 K/UL ABSOLUTE LYMPHOCYTES (test c ode = 1067) 3.02 K/UL ABSOLUTE MONOCYTES (test cod e = 1068) 0.71 K/UL ABSOLUTE EOSINOPHILS (test c ode = 1040) 0.48 K/UL ABSOLUTE BASOPHILS (test cod e = 1069) 0.06 K/UL ABS IMMATURE GRANULOCYTES (t est code = 1020) 0.04 K/UL ABS NUCLEATED RBCS (test cod e = 04400) 0.00 K/UL Cosmo NievesHIGH SENSITIVITY [id number] 00:00:00* Test Item Value Reference Range Interpretation Comme parisa HIGH SENSITIVITY CRP (test c ode = 80403) 41.5 MG/L Cosmo NievesCCP [id number] 00:00:00* Test Item Value Reference Range Interpretation Comme parisa CCP IgG (test code = 59986) <0.5 U/ML Cosmo NievesANA (ANTI-NUCLEAR AB) WITH REFLEX [id number] 00:00:00* Test Item Value Reference Range Interpretation Comme parisa ANTI-NUCLEAR ANTIBODIES (naz t code = 3506) NEGATIVE Cosmo NievesSEDIMENTATION [id number] 00:00:00* Test Item Value Reference Range Interpretation Comme nts SEDIMENTATION RATE (test cod e = 1017) 44 MM/HOUR Cosmo NievesHEMOGLOBIN [id number] 00:00:00* Test Item Value Reference Range Interpretation Comme nts HEMOGLOBIN A1c (test code = 24316) 7.9 % Cosmo NievesHEMOGLOBIN [id number] 00:00:00* Test Item Value Reference Range Interpretation Comme parisa HEMOGLOBIN A1c (test code = 80493) 7.9 % LIPID [id number] 00:00:00* Test Item Value Reference Range Interpretation Comme nts CHOLESTEROL (test code = 2210) 208 MG/DL TRIGLYCERIDES (test code = 2232) 140 MG/DL HDL CHOLESTEROL (test code = 2220) 48 MG/DL CALC LDL CHOL (test code = 2237) 134 MG/DL RISK RATIO LDL/HDL (test cod e = 2238) 2.79 RATIO COMPREHENSIVE METABOLIC [id number] 00:00:00* Test Item Value Reference Range Interpretation Comme nts GLUCOSE (test code = 2217) 143 MG/DL BUN (test code = 2208) 10 MG/DL CREATININE (test code = 2214) 0.60 MG/DL eGFR AMER. (test cod e = 08381) 133 ML/MIN/1.73 eGFR NON- AMER. (test code = 44802) 115 ML/MIN/1.73 CALC BUN/CREAT (test code = 2235) 17 RATIO SODIUM (test code = 2231) 138 MEQ/L POTASSIUM (test code = 2228) 4.4 MEQ/L CHLORIDE (test code = 2215) 98 MEQ/L CARBON DIOXIDE (test code = 2206) 29 MEQ/L CALCIUM (test code = 2209) 9.6 MG/DL PROTEIN, TOTAL (test code = 2229) 6.7 G/DL ALBUMIN (test code = 2201) 4.4 G/DL CALC GLOBULIN (test code = 2240) 2.3 G/DL CALC A/G RATIO (test code = 2234) 1.9 RATIO BILIRUBIN, TOTAL (test code = 7) 0.3 MG/DL ALKALINE PHOSPHATASE (test code = 2203) 78 U/L AST (test code = 2217) 38 U/L ALT (test code = 2218) 34 U/L [id number] 00:00:00* Test Item Value Reference Range Interpretation Comme nts TSH, THIRD GENERATION (test code = 2821) 1.940 UIU/ML MICROALBUMIN/CREATININE, RANDOM AND [id number] 00:00:00* Test Item Value Reference Range Interpretation Comme nts CREATININE, URINE, CONC. (te st code = 2072) 157.3 MG/DL ALBUMIN, URINE, RANDOM (test code = 28793) 0.6 MG/DL CALC ALBUMIN/CREAT, RND (naz t code = 48556) 4 MG/G CBC W/AUTO [id number] 00:00:00* Test Item Value Reference Range Interpretation Comme nts WBC (test code = 1001) 12.2 K/UL RBC (test code = 1002) 5.03 M/UL HEMOGLOBIN (test code = 1003) 11.6 G/DL HEMATOCRIT (test code = 1004) 37.7 % MCV (test code = 1005) 75.0 fL MCH (test code = 1006) 23.1 PG MCHC (test code = 1007) 30.8 G/DL RDW (test code = 1038) 16.5 % NEUTROPHILS (test code = 1008) 64.5 % LYMPHOCYTES (test code = 1010) 24.9 % MONOCYTES (test code = 1011) 5.8 % EOSINOPHILS (test code = 1012) 4.0 % BASOPHILS (test code = 1013) 0.5 % IMMATURE GRANULOCYTES (test code = 1036) 0.3 % NUCLEATED RBCS (test code = 1065) 0.0 /100WBC'S PLATELET COUNT (test code = 1015) 369 K/UL ABSOLUTE NEUTROPHILS (test c ode = 1066) 7.84 K/UL ABSOLUTE LYMPHOCYTES (test c ode = 1067) 3.02 K/UL ABSOLUTE MONOCYTES (test cod e = 1068) 0.71 K/UL ABSOLUTE EOSINOPHILS (test c ode = 1040) 0.48 K/UL ABSOLUTE BASOPHILS (test cod e = 1069) 0.06 K/UL ABS IMMATURE GRANULOCYTES (t est code = 1020) 0.04 K/UL ABS NUCLEATED RBCS (test cod e = 27062) 0.00 K/UL HIGH SENSITIVITY [id number] 00:00:00* Test Item Value Reference Range Interpretation Comme nts HIGH SENSITIVITY CRP (test c ode = 76067) 41.5 MG/L CCP [id number] 00:00:00* Test Item Value Reference Range Interpretation Comme nts CCP IgG (test code = 75421) <0.5 U/ML GORDO (ANTI-NUCLEAR AB) WITH REFLEX [id number] 00:00:00* Test Item Value Reference Range Interpretation Comme nts ANTI-NUCLEAR ANTIBODIES (naz t code = 3506) NEGATIVE SEDIMENTATION [id number] 00:00:00* Test Item Value Reference Range Interpretation Comme nts SEDIMENTATION RATE (test cod e = 1017) 44 MM/HOUR HEMOGLOBIN [id number] 00:00:00* Test Item Value Reference Range Interpretation Comme nts HEMOGLOBIN A1c (test code = 87334) 7.9 % LIPID [id number] 00:00:00* Test Item Value Reference Range Interpretation Comme nts CHOLESTEROL (test code = 2210) 208 MG/DL TRIGLYCERIDES (test code = 2232) 140 MG/DL HDL CHOLESTEROL (test code = 2220) 48 MG/DL CALC LDL CHOL (test code = 2237) 134 MG/DL RISK RATIO LDL/HDL (test cod e = 2238) 2.79 RATIO COMPREHENSIVE METABOLIC [id number] 00:00:00* Test Item Value Reference Range Interpretation Comme nts GLUCOSE (test code = 2217) 143 MG/DL BUN (test code = 2208) 10 MG/DL CREATININE (test code = 2214) 0.60 MG/DL eGFR AMER. (test cod e = 49958) 133 ML/MIN/1.73 eGFR NON- AMER. (test code = 38739) 115 ML/MIN/1.73 CALC BUN/CREAT (test code = 2235) 17 RATIO SODIUM (test code = 2231) 138 MEQ/L POTASSIUM (test code = 2228) 4.4 MEQ/L CHLORIDE (test code = 2215) 98 MEQ/L CARBON DIOXIDE (test code = 2206) 29 MEQ/L CALCIUM (test code = 2209) 9.6 MG/DL PROTEIN, TOTAL (test code = 222) 6.7 G/DL ALBUMIN (test code = 220) 4.4 G/DL CALC GLOBULIN (test code = 2240) 2.3 G/DL CALC A/G RATIO (test code = 2234) 1.9 RATIO BILIRUBIN, TOTAL (test code = 2207) 0.3 MG/DL ALKALINE PHOSPHATASE (test code = 2203) 78 U/L AST (test code = 2218) 38 U/L ALT (test code = 2219) 34 U/L [id number] 00:00:00* Test Item Value Reference Range Interpretation Comme nts TSH, THIRD GENERATION (test code = 2821) 1.940 UIU/ML MICROALBUMIN/CREATININE, RANDOM AND [id number] 00:00:00* Test Item Value Reference Range Interpretation Comme nts CREATININE, URINE, CONC. (te st code = 2072) 157.3 MG/DL ALBUMIN, URINE, RANDOM (test code = 31324) 0.6 MG/DL CALC ALBUMIN/CREAT, RND (naz t code = 57418) 4 MG/G CBC W/AUTO [id number] 00:00:00* Test Item Value Reference Range Interpretation Comme nts WBC (test code = 1001) 12.2 K/UL RBC (test code = 1002) 5.03 M/UL HEMOGLOBIN (test code = 1003) 11.6 G/DL HEMATOCRIT (test code = 1004) 37.7 % MCV (test code = 1005) 75.0 fL MCH (test code = 1006) 23.1 PG MCHC (test code = 1007) 30.8 G/DL RDW (test code = 1038) 16.5 % NEUTROPHILS (test code = 1008) 64.5 % LYMPHOCYTES (test code = 1010) 24.9 % MONOCYTES (test code = 1011) 5.8 % EOSINOPHILS (test code = 1012) 4.0 % BASOPHILS (test code = 1013) 0.5 % IMMATURE GRANULOCYTES (test code = 1036) 0.3 % NUCLEATED RBCS (test code = 1065) 0.0 /100WBC'S PLATELET COUNT (test code = 1015) 369 K/UL ABSOLUTE NEUTROPHILS (test c ode = 1066) 7.84 K/UL ABSOLUTE LYMPHOCYTES (test c ode = 1067) 3.02 K/UL ABSOLUTE MONOCYTES (test cod e = 1068) 0.71 K/UL ABSOLUTE EOSINOPHILS (test c ode = 1040) 0.48 K/UL ABSOLUTE BASOPHILS (test cod e = 1069) 0.06 K/UL ABS IMMATURE GRANULOCYTES (t est code = 1020) 0.04 K/UL ABS NUCLEATED RBCS (test cod e = 04016) 0.00 K/UL HIGH SENSITIVITY [id number] 00:00:00* Test Item Value Reference Range Interpretation Comme nts HIGH SENSITIVITY CRP (test c ode = 46352) 41.5 MG/L CCP [id number] 00:00:00* Test Item Value Reference Range Interpretation Comme nts CCP IgG (test code = 14408) <0.5 U/ML GORDO (ANTI-NUCLEAR AB) WITH REFLEX [id number] 00:00:00* Test Item Value Reference Range Interpretation Comme nts ANTI-NUCLEAR ANTIBODIES (naz t code = 3506) NEGATIVE SEDIMENTATION [id number] 00:00:00* Test Item Value Reference Range Interpretation Comme nts SEDIMENTATION RATE (test cod e = 1017) 44 MM/HOUR US ABDOMEN [id number] 17:05:12HISTORY: Recurrent epigastric abdominal pain. TECHNIQUE: Upper abdominal organs were evaluated in multiple planes withthe patient in multiple different positions, without and with colorimaging. FINDINGS: Liver is moderately enlarged, 22 cm, spleen is 12.2 x 5.1 cm,right kidney is 11.1 x 4.4 x 5.2 cm and left kidney is 12.7 x 6.7 x 5.4 cmin size. Moderate diffuse increased echotexture of the liverparenchymanoted. No focal lesions are detected in these organs. Cortex of bothkidneys range mm and 14 mm. No hydronephrosis, free fluid in theupper abdomen or aortic aneurysm detected. Visualized portions of thepancreas appear normal. Hepatic and portal venous system appear patent,with hepatopetal portal flow noted. Gallbladder has been removed. Common hepatic duct is 4.0 mm. CONCLUSIONS:1. Moderate hepatomegaly with moderate diffuse steatosis.2. S/P cholecystectomy. [facility], Radiant Results Inft User - 12/19/2020 12:06 PM CDTHISTORY: Recurrent epigastric abdominal pain.TECHNIQUE: Upper abdominal organs were evaluated in multiple planes withthe patient in multiple different positions, without and with colorimaging.FINDINGS: Liver is moderately enlarged, 22 cm, spleen is 12.2 x 5.1 cm,right kidney is 11.1 x 4.4 x 5.2 cm and left kidney is 12.7 x 6.7 x 5.4 cmin size. Moderate diffuse increased echotexture of the liver parenchymanoted. No focal lesions are detected in these organs. Cortex of bothkidneys range between 13 mm and 14 mm. No hydronephrosis, free fluid in theupper abdomen or aortic aneurysm detected. Visualized portions of thepancreas appear normal. Hepatic and portal venous system appear patent,with hepatopetal portal flow noted.Gallbladder has been removed. Common hepatic duct is 4.0 mm.CONCLUSIONS:1. Moderate hepatomegaly with moderate diffuse steatosis.2. [facility]:00:00* Test Item Value Reference Range Interpretation Comme nts NOTE: (test code = 998) (NOTE) Cosmo NievesNOTE: [ADDED]2020-07-10 00:00:00* Test Item Value Reference Range Interpretation Comme nts NOTE: (test code = 998) (NOTE) Cosmo NievesNOTE: [ADDED]2020-07-10 00:00:00* Test Item Value Reference Range Interpretation Comme nts NOTE: (test code = 998) (NOTE) NOTE: [ADDED]2020-07-10 00:00:00* Test Item Value Reference Range Interpretation Comme nts NOTE: (test code = 998) (NOTE) HEMOGLOBIN A1c [ADDED]2020-07-09 00:00:00* Test Item Value Reference Range Interpretation Comme parisa HEMOGLOBIN A1c (test code = 91145) 8.1 % Cosmo Martin AustinHEMOGLOBIN A1c [ADDED]2020-07-09 00:00:00* Test Item Value Reference Range Interpretation Comme nts HEMOGLOBIN A1c (test code = 17711) 8.1 % Cosmo Martin AustinHEMOGLOBIN A1c [ADDED]2020-07-09 00:00:00* Test Item Value Reference Range Interpretation Comme nts HEMOGLOBIN A1c (test code = 43123) 8.1 % HEMOGLOBIN A1c [ADDED]2020-07-09 00:00:00* Test Item Value Reference Range Interpretation Comme nts HEMOGLOBIN A1c (test code = 87405) 8.1 % [id number] 00:00:00* Test Item Value Reference Range Interpretation Comme nts TSH, THIRD GENERATION (test code = 2821) 2.590 UIU/ML Cosmo Martin [id number] 00:00:00* Test Item Value Reference Range Interpretation Comme nts TSH, THIRD GENERATION (test code = 2821) 2.590 UIU/ML Cosmo Martin [id number] 00:00:00* Test Item Value Reference Range Interpretation Comme nts TSH, THIRD GENERATION (test code = 2821) 2.590 UIU/ML [id number] 00:00:00* Test Item Value Reference Range Interpretation Comme nts TSH, THIRD GENERATION (test code = 2821) 2.590 UIU/ML LIPID [id number] 00:00:00* Test Item Value Reference Range Interpretation Comme nts CHOLESTEROL (test code = 2210) 161 MG/DL TRIGLYCERIDES (test code = 2232) 162 MG/DL HDL CHOLESTEROL (test code = 2220) 39 MG/DL CALC LDL CHOL (test code = 2237) 96 MG/DL RISK RATIO LDL/HDL (test cod e = 2238) 2.46 RATIO Cosmo Martin [place] ShadeCOMPREHENSIVE METABOLIC [id number] 00:00:00* Test Item Value Reference Range Interpretation Comme nts GLUCOSE (test code = 2217) 173 MG/DL BUN (test code = 2208) 8 MG/DL CREATININE (test code = 2214) 0.55 MG/DL eGFR AMER. (test cod e = 36333) 138 ML/MIN/1.73 eGFR NON- AMER. (test code = 37429) 119 ML/MIN/1.73 CALC BUN/CREAT (test code = 2235) 15 RATIO SODIUM (test code = 2231) 139 MEQ/L POTASSIUM (test code = 2228) 4.8 MEQ/L CHLORIDE (test code = 2215) 103 MEQ/L CARBON DIOXIDE (test code = 2206) 25 MEQ/L CALCIUM (test code = 2209) 8.7 MG/DL PROTEIN, TOTAL (test code = 2229) 6.2 G/DL ALBUMIN (test code = 2201) 3.7 G/DL CALC GLOBULIN (test code = 2240) 2.5 G/DL CALC A/G RATIO (test code = 2234) 1.5 RATIO BILIRUBIN, TOTAL (test code = 2207) 0.2 MG/DL ALKALINE PHOSPHATASE (test code = 2204) 69 U/L AST (test code = 2218) 31 U/L ALT (test code = 2219) 32 U/L Cosmo NievesCBC W/AUTO [id number] 00:00:00* Test Item Value Reference Range Interpretation Comme nts WBC (test code = 1001) 12.8 K/UL RBC (test code = 1002) 4.53 M/UL HEMOGLOBIN (test code = 1003) 11.2 G/DL HEMATOCRIT (test code = 1004) 34.6 % MCV (test code = 1005) 76.4 fL MCH (test code = 1006) 24.7 PG MCHC (test code = 1007) 32.4 G/DL RDW (test code = 1038) 16.2 % NEUTROPHILS (test code = 1008) 68.6 % LYMPHOCYTES (test code = 1010) 20.9 % MONOCYTES (test code = 1011) 5.9 % EOSINOPHILS (test code = 1012) 4.1 % BASOPHILS (test code = 1013) 0.5 % PLATELET COUNT (test code = 1015) 282 K/UL Cosmo NievesLIPID [id number] 00:00:00* Test Item Value Reference Range Interpretation Comme nts CHOLESTEROL (test code = 2210) 161 MG/DL TRIGLYCERIDES (test code = 2232) 162 MG/DL HDL CHOLESTEROL (test code = 2220) 39 MG/DL CALC LDL CHOL (test code = 2237) 96 MG/DL RISK RATIO LDL/HDL (test cod e = 2238) 2.46 RATIO Cosmo NievesCOMPREHENSIVE METABOLIC [id number] 00:00:00* Test Item Value Reference Range Interpretation Comme nts GLUCOSE (test code = 2217) 173 MG/DL BUN (test code = 2208) 8 MG/DL CREATININE (test code = 2214) 0.55 MG/DL eGFR AMER. (test cod e = 68305) 138 ML/MIN/1.73 eGFR NON- AMER. (test code = 79617) 119 ML/MIN/1.73 CALC BUN/CREAT (test code = 2235) 15 RATIO SODIUM (test code = 2231) 139 MEQ/L POTASSIUM (test code = 2228) 4.8 MEQ/L CHLORIDE (test code = 2215) 103 MEQ/L CARBON DIOXIDE (test code = 2206) 25 MEQ/L CALCIUM (test code = 2209) 8.7 MG/DL PROTEIN, TOTAL (test code = 2229) 6.2 G/DL ALBUMIN (test code = 2201) 3.7 G/DL CALC GLOBULIN (test code = 2240) 2.5 G/DL CALC A/G RATIO (test code = 2234) 1.5 RATIO BILIRUBIN, TOTAL (test code = 2207) 0.2 MG/DL ALKALINE PHOSPHATASE (test code = 2204) 69 U/L AST (test code = 2218) 31 U/L ALT (test code = 2219) 32 U/L Cosmo Martin EzequielCBC W/AUTO [id number] 00:00:00* Test Item Value Reference Range Interpretation Comme nts WBC (test code = 1001) 12.8 K/UL RBC (test code = 1002) 4.53 M/UL HEMOGLOBIN (test code = 1003) 11.2 G/DL HEMATOCRIT (test code = 1004) 34.6 % MCV (test code = 1005) 76.4 fL MCH (test code = 1006) 24.7 PG MCHC (test code = 1007) 32.4 G/DL RDW (test code = 1038) 16.2 % NEUTROPHILS (test code = 1008) 68.6 % LYMPHOCYTES (test code = 1010) 20.9 % MONOCYTES (test code = 1011) 5.9 % EOSINOPHILS (test code = 1012) 4.1 % BASOPHILS (test code = 1013) 0.5 % PLATELET COUNT (test code = 1015) 282 K/UL [facility]mo [facility]ievesSA[facility] W/AUTO [id number] 00:00:00* Test Item Value Reference Range Interpretation Comme nts WBC (test code = 1001) 12.8 K/UL RBC (test code = 1002) 4.53 M/UL HEMOGLOBIN (test code = 1003) 11.2 G/DL HEMATOCRIT (test code = 1004) 34.6 % MCV (test code = 1005) 76.4 fL MCH (test code = 1006) 24.7 PG MCHC (test code = 1007) 32.4 G/DL RDW (test code = 1038) 16.2 % NEUTROPHILS (test code = 1008) 68.6 % LYMPHOCYTES (test code = 1010) 20.9 % MONOCYTES (test code = 1011) 5.9 % EOSINOPHILS (test code = 1012) 4.1 % BASOPHILS (test code = 1013) 0.5 % PLATELET COUNT (test code = 1015) 282 K/UL LIPID [id number] 00:00:00* Test Item Value Reference Range Interpretation Comme nts CHOLESTEROL (test code = 2210) 161 MG/DL TRIGLYCERIDES (test code = 2232) 162 MG/DL HDL CHOLESTEROL (test code = 2220) 39 MG/DL CALC LDL CHOL (test code = 2237) 96 MG/DL RISK RATIO LDL/HDL (test cod e = 2238) 2.46 RATIO COMPREHENSIVE METABOLIC [id number] 00:00:00* Test Item Value Reference Range Interpretation Comme nts GLUCOSE (test code = 2217) 173 MG/DL BUN (test code = 2208) 8 MG/DL CREATININE (test code = 2214) 0.55 MG/DL eGFR AMER. (test cod e = 32003) 138 ML/MIN/1.73 eGFR NON- AMER. (test code = 56202) 119 ML/MIN/1.73 CALC BUN/CREAT (test code = 2235) 15 RATIO SODIUM (test code = 2231) 139 MEQ/L POTASSIUM (test code = 2228) 4.8 MEQ/L CHLORIDE (test code = 2215) 103 MEQ/L CARBON DIOXIDE (test code = 2206) 25 MEQ/L CALCIUM (test code = 2209) 8.7 MG/DL PROTEIN, TOTAL (test code = 2229) 6.2 G/DL ALBUMIN (test code = 2201) 3.7 G/DL CALC GLOBULIN (test code = 2240) 2.5 G/DL CALC A/G RATIO (test code = 2234) 1.5 RATIO BILIRUBIN, TOTAL (test code = 2207) 0.2 MG/DL ALKALINE PHOSPHATASE (test code = 2204) 69 U/L AST (test code = 2218) 31 U/L ALT (test code = 2219) 32 U/L CBC W/AUTO [id number] 00:00:00* Test Item Value Reference Range Interpretation Comme nts WBC (test code = 1001) 12.8 K/UL RBC (test code = 1002) 4.53 M/UL HEMOGLOBIN (test code = 1003) 11.2 G/DL HEMATOCRIT (test code = 1004) 34.6 % MCV (test code = 1005) 76.4 fL MCH (test code = 1006) 24.7 PG MCHC (test code = 1007) 32.4 G/DL RDW (test code = 1038) 16.2 % NEUTROPHILS (test code = 1008) 68.6 % LYMPHOCYTES (test code = 1010) 20.9 % MONOCYTES (test code = 1011) 5.9 % EOSINOPHILS (test code = 1012) 4.1 % BASOPHILS (test code = 1013) 0.5 % PLATELET COUNT (test code = 1015) 282 K/UL LIPID [id number] 00:00:00* Test Item Value Reference Range Interpretation Comme nts CHOLESTEROL (test code = 2210) 161 MG/DL TRIGLYCERIDES (test code = 2232) 162 MG/DL HDL CHOLESTEROL (test code = 2220) 39 MG/DL CALC LDL CHOL (test code = 2237) 96 MG/DL RISK RATIO LDL/HDL (test cod e = 2238) 2.46 RATIO COMPREHENSIVE METABOLIC [id number] 00:00:00* Test Item Value Reference Range Interpretation Comme nts GLUCOSE (test code = 2217) 173 MG/DL BUN (test code = 2208) 8 MG/DL CREATININE (test code = 2214) 0.55 MG/DL eGFR AMER. (test cod e = 95427) 138 ML/MIN/1.73 eGFR NON- AMER. (test code = 47011) 119 ML/MIN/1.73 CALC BUN/CREAT (test code = 2235) 15 RATIO SODIUM (test code = 2231) 139 MEQ/L POTASSIUM (test code = 2228) 4.8 MEQ/L CHLORIDE (test code = 2215) 103 MEQ/L CARBON DIOXIDE (test code = 2206) 25 MEQ/L CALCIUM (test code = 2209) 8.7 MG/DL PROTEIN, TOTAL (test code = 2229) 6.2 G/DL ALBUMIN (test code = 2201) 3.7 G/DL CALC GLOBULIN (test code = 2240) 2.5 G/DL CALC A/G RATIO (test code = 2234) 1.5 RATIO BILIRUBIN, TOTAL (test code = 2207) 0.2 MG/DL ALKALINE PHOSPHATASE (test code = 2204) 69 U/L AST (test code = 2218) 31 U/L ALT (test code = 2219) 32 U/L [id number] 00:00:00* Test Item Value Reference Range Interpretation Comme nts TSH, THIRD GENERATION (test code = 2821) 4.100 UIU/ML Cosmo F [id number] 00:00:00* Test Item Value Reference Range Interpretation Comme nts TSH, THIRD GENERATION (test code = 2821) 4.100 UIU/ML Cosmo F [id number] 00:00:00* Test Item Value Reference Range Interpretation Comme nts TSH, THIRD GENERATION (test code = 2821) 4.100 UIU/ML [id number] 00:00:00* Test Item Value Reference Range Interpretation Comme nts TSH, THIRD GENERATION (test code = 2821) 4.100 UIU/ML HEMOGLOBIN [id number] 00:00:00* Test Item Value Reference Range Interpretation Comme nts HEMOGLOBIN A1c (test code = 09836) 9.0 % Cosmo Martin EzequielCOMPREHENSIVE METABOLIC [id number] 00:00:00* Test Item Value Reference Range Interpretation Comme nts GLUCOSE (test code = 2217) 176 MG/DL BUN (test code = 2208) 8 MG/DL CREATININE (test code = 2214) 0.53 MG/DL eGFR AMER. (test cod e = 44983) 140 ML/MIN/1.73 eGFR NON- AMER. (test code = 67992) 120 ML/MIN/1.73 CALC BUN/CREAT (test code = 2235) 15 RATIO SODIUM (test code = 2231) 137 MEQ/L POTASSIUM (test code = 2228) 4.5 MEQ/L CHLORIDE (test code = 2215) 100 MEQ/L CARBON DIOXIDE (test code = 2206) 24 MEQ/L CALCIUM (test code = 2209) 8.9 MG/DL PROTEIN, TOTAL (test code = 2229) 6.2 G/DL ALBUMIN (test code = 2201) 4.0 G/DL CALC GLOBULIN (test code = 2240) 2.2 G/DL CALC A/G RATIO (test code = 2234) 1.8 RATIO BILIRUBIN, TOTAL (test code = 2207) 0.4 MG/DL ALKALINE PHOSPHATASE (test code = 2204) 72 U/L AST (test code = 2218) 29 U/L ALT (test code = 2219) 35 U/L Cosmo NievesHEMOGLOBIN [id number] 00:00:00* Test Item Value Reference Range Interpretation Comme nts HEMOGLOBIN A1c (test code = 17138) 9.0 % Cosmo NievesCOMPREHENSIVE METABOLIC [id number] 00:00:00* Test Item Value Reference Range Interpretation Comme nts GLUCOSE (test code = 2217) 176 MG/DL BUN (test code = 2208) 8 MG/DL CREATININE (test code = 2214) 0.53 MG/DL eGFR AMER. (test cod e = 08114) 140 ML/MIN/1.73 eGFR NON- AMER. (test code = 69978) 120 ML/MIN/1.73 CALC BUN/CREAT (test code = 2235) 15 RATIO SODIUM (test code = 2231) 137 MEQ/L POTASSIUM (test code = 2228) 4.5 MEQ/L CHLORIDE (test code = 2215) 100 MEQ/L CARBON DIOXIDE (test code = 2206) 24 MEQ/L CALCIUM (test code = 2209) 8.9 MG/DL PROTEIN, TOTAL (test code = 2229) 6.2 G/DL ALBUMIN (test code = 2201) 4.0 G/DL CALC GLOBULIN (test code = 2240) 2.2 G/DL CALC A/G RATIO (test code = 2234) 1.8 RATIO BILIRUBIN, TOTAL (test code = 2207) 0.4 MG/DL ALKALINE PHOSPHATASE (test code = 2204) 72 U/L AST (test code = 2218) 29 U/L ALT (test code = 2219) 35 U/L Cosmo NievesCOMPREHENSIVE METABOLIC [id number] 00:00:00* Test Item Value Reference Range Interpretation Comme nts GLUCOSE (test code = 2217) 176 MG/DL BUN (test code = 2208) 8 MG/DL CREATININE (test code = 2214) 0.53 MG/DL eGFR AMER. (test cod e = 39180) 140 ML/MIN/1.73 eGFR NON- AMER. (test code = 06124) 120 ML/MIN/1.73 CALC BUN/CREAT (test code = 2235) 15 RATIO SODIUM (test code = 2231) 137 MEQ/L POTASSIUM (test code = 2228) 4.5 MEQ/L CHLORIDE (test code = 2215) 100 MEQ/L CARBON DIOXIDE (test code = 2206) 24 MEQ/L CALCIUM (test code = 2209) 8.9 MG/DL PROTEIN, TOTAL (test code = 2229) 6.2 G/DL ALBUMIN (test code = 2201) 4.0 G/DL CALC GLOBULIN (test code = 2240) 2.2 G/DL CALC A/G RATIO (test code = 2234) 1.8 RATIO BILIRUBIN, TOTAL (test code = 2207) 0.4 MG/DL ALKALINE PHOSPHATASE (test code = 2204) 72 U/L AST (test code = 2218) 29 U/L ALT (test code = 2219) 35 U/L HEMOGLOBIN [id number] 00:00:00* Test Item Value Reference Range Interpretation Comme nts HEMOGLOBIN A1c (test code = 37367) 9.0 % COMPREHENSIVE METABOLIC [id number] 00:00:00* Test Item Value Reference Range Interpretation Comme nts GLUCOSE (test code = 2217) 176 MG/DL BUN (test code = 2208) 8 MG/DL CREATININE (test code = 2214) 0.53 MG/DL eGFR AMER. (test cod e = 44729) 140 ML/MIN/1.73 eGFR NON- AMER. (test code = 41716) 120 ML/MIN/1.73 CALC BUN/CREAT (test code = 2235) 15 RATIO SODIUM (test code = 2231) 137 MEQ/L POTASSIUM (test code = 2228) 4.5 MEQ/L CHLORIDE (test code = 2215) 100 MEQ/L CARBON DIOXIDE (test code = 2206) 24 MEQ/L CALCIUM (test code = 2209) 8.9 MG/DL PROTEIN, TOTAL (test code = 2229) 6.2 G/DL ALBUMIN (test code = 2201) 4.0 G/DL CALC GLOBULIN (test code = 2240) 2.2 G/DL CALC A/G RATIO (test code = 2234) 1.8 RATIO BILIRUBIN, TOTAL (test code = 2207) 0.4 MG/DL ALKALINE PHOSPHATASE (test code = 2204) 72 U/L AST (test code = 2218) 29 U/L ALT (test code = 2219) 35 U/L HEMOGLOBIN [id number] 00:00:00* Test Item Value Reference Range Interpretation Comme nts HEMOGLOBIN A1c (test code = 12672) 9.0 % LIPID PANEL (REFL)2019-06-20 00:00:00* Test Item Value Reference Range Interpretation Comme nts CHOLESTEROL, TOTAL (test cod e = 2093-3) 192 mg/dL HDL CHOLESTEROL (test code = 2085-9) 51 mg/dL TRIGLYCERIDES (test code = 2571-8) 221 mg/dL LDL-CHOLESTEROL (test code = 99748-6) 108 mg/dL(calc) CHOL/HDLC RATIO (test code = 9830-1) 3.8 (calc) NON HDL CHOLESTEROL (test code = 24695-3) 141 mg/dL(calc) Cosmo Martin AustinCOMPREHENSIVE METABOLIC [id number] 00:00:00* Test Item Value Reference Range Interpretation Comme nts GLUCOSE (test code = 2345-7) 194 mg/dL UREA NITROGEN (BUN) (test code = 3094-0) 10 mg/dL CREATININE (test code = 2160-0) 0.61 mg/dL eGFR NON-AFR. FRENCH (test code = 77070-1) 116 mL/min/1.73m2 eGFR (test code = 73182-5) 134 mL/min/1.73m2 BUN/CREATININE RATIO (test code = 3097-3) NOT APPLICABLE (calc) SODIUM (test code = 2951-2) 135 mmol/L POTASSIUM (test code = 2823-3) 4.0 mmol/L CHLORIDE (test code = 2075-0) 97 mmol/L CARBON DIOXIDE (test code = 2027-9) 26 mmol/L CALCIUM (test code = 41123-3) 9.5 mg/dL PROTEIN, TOTAL (test code = 2885-2) 6.7 g/dL ALBUMIN (test code = 1751-7) 4.0 g/dL GLOBULIN (test code = 86262-1) 2.7 g/dL(calc) ALBUMIN/GLOBULIN RATIO (test code = 1759-0) 1.5 (calc) BILIRUBIN, TOTAL (test code = 1975-2) 0.4 mg/dL ALKALINE PHOSPHATASE (test code = 6768-6) 76 U/L AST (test code = 1920-8) 35 U/L ALT (test code = 1742-6) 39 U/L Cosmo [id number] 00:00:00* Test Item Value Reference Range Interpretation Comme [facility] TSH (test code = 3016-3) 2.16 mIU/L Cosmo NievesHEMOGLOBIN [id number] 00:00:00* Test Item Value Reference Range Interpretation Comme [facility] HEMOGLOBIN A1c (test code = 4548-4) 10.2 %oftotalHgb Cosmo NievesCBC (INCLUDES DIFF/PLT)2019-06-20 00:00:00* Test Item Value Reference Range Interpretation Comme [facility] WHITE BLOOD CELL COUNT (test code = 6690-2) 10.7 Thousand/uL RED BLOOD CELL COUNT (test code = 789-8) 4.90 Million/uL HEMOGLOBIN (test code = 718-7) 12.7 g/dL HEMATOCRIT (test code = 4544-3) 39.3 % MCV (test code = 787-2) 80.2 fL MCH (test code = 785-6) 25.9 pg MCHC (test code = 786-4) 32.3 g/dL RDW (test code = 788-0) 14.9 % PLATELET COUNT (test code = 777-3) 229 Thousand/uL MPV (test code = 776-5) 13.4 fL ABSOLUTE NEUTROPHILS (test code = 751-8) 7458 cells/uL ABSOLUTE BAND NEUTROPHILS (test code = 41486-5) DNR cells/uL ABSOLUTE METAMYELOCYTES (test code = 58794-0) DNR cells/uL ABSOLUTE MYELOCYTES (test code = 03487-7) DNR cells/uL ABSOLUTE PROMYELOCYTES (test code = 48831-4) DNR cells/uL ABSOLUTE LYMPHOCYTES (test code = 731-0) 2290 cells/uL ABSOLUTE MONOCYTES (test code = 742-7) 524 cells/uL ABSOLUTE EOSINOPHILS (test code = 711-2) 364 cells/uL ABSOLUTE BASOPHILS (test code = 704-7) 64 cells/uL ABSOLUTE BLASTS (test code = 87943-2) DNR cells/uL ABSOLUTE NUCLEATED RBC (test code = 44251-8) DNR cells/uL NEUTROPHILS (test code = 770-8) 69.7 % BAND NEUTROPHILS (test code = 764-1) DNR % METAMYELOCYTES (test code = 740-1) DNR % MYELOCYTES (test code = 749-2) DNR % PROMYELOCYTES (test code = 783-1) DNR % LYMPHOCYTES (test code = 736-9) 21.4 % REACTIVE LYMPHOCYTES (test code = 96235-9) DNR % MONOCYTES (test code = 5905-5) 4.9 % EOSINOPHILS (test code = 713-8) 3.4 % BASOPHILS (test code = 706-2) 0.6 % BLASTS (test code = 709-6) DNR % NUCLEATED RBC (test code = 04391-5) DNR /100WBC Cosmo Martin AustinLIPID PANEL (REFL)2019-06-20 00:00:00* Test Item Value Reference Range Interpretation Comme nts CHOLESTEROL, TOTAL (test cod e = 2093-3) 192 mg/dL HDL CHOLESTEROL (test code = 2085-9) 51 mg/dL TRIGLYCERIDES (test code = 2571-8) 221 mg/dL LDL-CHOLESTEROL (test code = 41317-5) 108 mg/dL(calc) CHOL/HDLC RATIO (test code = 9830-1) 3.8 (calc) NON HDL CHOLESTEROL (test code = 64130-2) 141 mg/dL(calc) Cosmo NievesCOMPREHENSIVE METABOLIC [id number] 00:00:00* Test Item Value Reference Range Interpretation Comme nts GLUCOSE (test code = 2345-7) 194 mg/dL UREA NITROGEN (BUN) (test code = 3094-0) 10 mg/dL CREATININE (test code = 2160-0) 0.61 mg/dL eGFR NON-AFR. FRENCH (test code = 68817-8) 116 mL/min/1.73m2 eGFR (test code = 66649-7) 134 mL/min/1.73m2 BUN/CREATININE RATIO (test code = 3097-3) NOT APPLICABLE (calc) SODIUM (test code = 2951-2) 135 mmol/L POTASSIUM (test code = 2823-3) 4.0 mmol/L CHLORIDE (test code = 2075-0) 97 mmol/L CARBON DIOXIDE (test code = 2027-9) 26 mmol/L CALCIUM (test code = 24279-2) 9.5 mg/dL PROTEIN, TOTAL (test code = 2885-2) 6.7 g/dL ALBUMIN (test code = 1751-7) 4.0 g/dL GLOBULIN (test code = 70894-1) 2.7 g/dL(calc) ALBUMIN/GLOBULIN RATIO (test code = 1759-0) 1.5 (calc) BILIRUBIN, TOTAL (test code = 1975-2) 0.4 mg/dL ALKALINE PHOSPHATASE (test code = 6768-6) 76 U/L AST (test code = 1920-8) 35 U/L ALT (test code = 1742-6) 39 U/L Cosmo [id number] 00:00:00* Test Item Value Reference Range Interpretation Comme [facility] TSH (test code = 3016-3) 2.16 mIU/L Cosmo NievesHEMOGLOBIN [id number] 00:00:00* Test Item Value Reference Range Interpretation Comme par[facility] HEMOGLOBIN A1c (test code = 4548-4) 10.2 %oftotalHgb Cosmo NievesCBC (INCLUDES DIFF/PLT)2019-06-20 00:00:00* Test Item Value Reference Range Interpretation Comme parisa WHITE BLOOD CELL COUNT (test code = 6690-2) 10.7 Thousand/uL RED BLOOD CELL COUNT (test code = 789-8) 4.90 Million/uL HEMOGLOBIN (test code = 718-7) 12.7 g/dL HEMATOCRIT (test code = 4544-3) 39.3 % MCV (test code = 787-2) 80.2 fL MCH (test code = 785-6) 25.9 pg MCHC (test code = 786-4) 32.3 g/dL RDW (test code = 788-0) 14.9 % PLATELET COUNT (test code = 777-3) 229 Thousand/uL MPV (test code = 776-5) 13.4 fL ABSOLUTE NEUTROPHILS (test code = 751-8) 7458 cells/uL ABSOLUTE BAND NEUTROPHILS (test code = 80940-9) DNR cells/uL ABSOLUTE METAMYELOCYTES (test code = 79551-5) DNR cells/uL ABSOLUTE MYELOCYTES (test code = 39804-5) DNR cells/uL ABSOLUTE PROMYELOCYTES (test code = 66538-6) DNR cells/uL ABSOLUTE LYMPHOCYTES (test code = 731-0) 2290 cells/uL ABSOLUTE MONOCYTES (test code = 742-7) 524 cells/uL ABSOLUTE EOSINOPHILS (test code = 711-2) 364 cells/uL ABSOLUTE BASOPHILS (test code = 704-7) 64 cells/uL ABSOLUTE BLASTS (test code = 45415-5) DNR cells/uL ABSOLUTE NUCLEATED RBC (test code = 10719-5) DNR cells/uL NEUTROPHILS (test code = 770-8) 69.7 % BAND NEUTROPHILS (test code = 764-1) DNR % METAMYELOCYTES (test code = 740-1) DNR % MYELOCYTES (test code = 749-2) DNR % PROMYELOCYTES (test code = 783-1) DNR % LYMPHOCYTES (test code = 736-9) 21.4 % REACTIVE LYMPHOCYTES (test code = 25751-0) DNR % MONOCYTES (test code = 5905-5) 4.9 % EOSINOPHILS (test code = 713-8) 3.4 % BASOPHILS (test code = 706-2) 0.6 % BLASTS (test code = 709-6) DNR % NUCLEATED RBC (test code = 55131-7) DNR /100WBC Cosmo Martin [facility] (INCLUDES DIFF/PLT)2019-06-20 00:00:00* Test Item Value Reference Range Interpretation Comme nts WHITE BLOOD CELL COUNT (test code = 6690-2) 10.7 Thousand/uL RED BLOOD CELL COUNT (test code = 789-8) 4.90 Million/uL HEMOGLOBIN (test code = 718-7) 12.7 g/dL HEMATOCRIT (test code = 4544-3) 39.3 % MCV (test code = 787-2) 80.2 fL MCH (test code = 785-6) 25.9 pg MCHC (test code = 786-4) 32.3 g/dL RDW (test code = 788-0) 14.9 % PLATELET COUNT (test code = 777-3) 229 Thousand/uL MPV (test code = 776-5) 13.4 fL ABSOLUTE NEUTROPHILS (test code = 751-8) 7458 cells/uL ABSOLUTE BAND NEUTROPHILS (test code = 32598-1) DNR cells/uL ABSOLUTE METAMYELOCYTES (test code = 87104-1) DNR cells/uL ABSOLUTE MYELOCYTES (test code = 01238-6) DNR cells/uL ABSOLUTE PROMYELOCYTES (test code = 59992-2) DNR cells/uL ABSOLUTE LYMPHOCYTES (test code = 731-0) 2290 cells/uL ABSOLUTE MONOCYTES (test code = 742-7) 524 cells/uL ABSOLUTE EOSINOPHILS (test code = 711-2) 364 cells/uL ABSOLUTE BASOPHILS (test code = 704-7) 64 cells/uL ABSOLUTE BLASTS (test code = 87958-0) DNR cells/uL ABSOLUTE NUCLEATED RBC (test code = 23343-4) DNR cells/uL NEUTROPHILS (test code = 770-8) 69.7 % BAND NEUTROPHILS (test code = 764-1) DNR % METAMYELOCYTES (test code = 740-1) DNR % MYELOCYTES (test code = 749-2) DNR % PROMYELOCYTES (test code = 783-1) DNR % LYMPHOCYTES (test code = 736-9) 21.4 % REACTIVE LYMPHOCYTES (test code = 79027-9) DNR % MONOCYTES (test code = 5905-5) 4.9 % EOSINOPHILS (test code = 713-8) 3.4 % BASOPHILS (test code = 706-2) 0.6 % BLASTS (test code = 709-6) DNR % NUCLEATED RBC (test code = 76442-4) DNR /100WBC COMMENT(S) (test code = 8251-1) LIPID PANEL (REFL)2019-06-20 00:00:00* Test Item Value Reference Range Interpretation Comme nts CHOLESTEROL, TOTAL (test cod e = 2093-3) 192 mg/dL HDL CHOLESTEROL (test code = 2085-9) 51 mg/dL TRIGLYCERIDES (test code = 2571-8) 221 mg/dL LDL-CHOLESTEROL (test code = 30425-4) 108 mg/dL(calc) CHOL/HDLC RATIO (test code = 9830-1) 3.8 (calc) NON HDL CHOLESTEROL (test code = 63065-3) 141 mg/dL(calc) COMPREHENSIVE METABOLIC [id number] 00:00:00* Test Item Value Reference Range Interpretation Comme nts GLUCOSE (test code = 2345-7) 194 mg/dL UREA NITROGEN (BUN) (test code = 3094-0) 10 mg/dL CREATININE (test code = 2160-0) 0.61 mg/dL eGFR NON-AFR. FRENCH (test code = 69907-0) 116 mL/min/1.73m2 eGFR (test code = 74822-4) 134 mL/min/1.73m2 BUN/CREATININE RATIO (test code = 3097-3) NOT APPLICABLE (calc) SODIUM (test code = 2951-2) 135 mmol/L POTASSIUM (test code = 2823-3) 4.0 mmol/L CHLORIDE (test code = 2075-0) 97 mmol/L CARBON DIOXIDE (test code = 2027-9) 26 mmol/L CALCIUM (test code = 81228-4) 9.5 mg/dL PROTEIN, TOTAL (test code = 2885-2) 6.7 g/dL ALBUMIN (test code = 1751-7) 4.0 g/dL GLOBULIN (test code = 19587-0) 2.7 g/dL(calc) ALBUMIN/GLOBULIN RATIO (test code = 1759-0) 1.5 (calc) BILIRUBIN, TOTAL (test code = 1975-2) 0.4 mg/dL ALKALINE PHOSPHATASE (test code = 6768-6) 76 U/L AST (test code = 1920-8) 35 U/L ALT (test code = 1742-6) 39 U/L [id number] 00:00:00* Test Item Value Reference Range Interpretation Comme nts TSH (test code = 3016-3) 2.16 mIU/L HEMOGLOBIN [id number] 00:00:00* Test Item Value Reference Range Interpretation Comme [facility] HEMOGLOBIN A1c (test code = 4548-4) 10.2 %oftotalHgb CBC (INCLUDES DIFF/PLT)2019-06-20 00:00:00* Test Item Value Reference Range Interpretation Comme nts WHITE BLOOD CELL COUNT (test code = 6690-2) 10.7 Thousand/uL RED BLOOD CELL COUNT (test code = 789-8) 4.90 Million/uL HEMOGLOBIN (test code = 718-7) 12.7 g/dL HEMATOCRIT (test code = 4544-3) 39.3 % MCV (test code = 787-2) 80.2 fL MCH (test code = 785-6) 25.9 pg MCHC (test code = 786-4) 32.3 g/dL RDW (test code = 788-0) 14.9 % PLATELET COUNT (test code = 777-3) 229 Thousand/uL MPV (test code = 776-5) 13.4 fL ABSOLUTE NEUTROPHILS (test code = 751-8) 7458 cells/uL ABSOLUTE BAND NEUTROPHILS (test code = 33664-9) DNR cells/uL ABSOLUTE METAMYELOCYTES (test code = 11942-1) DNR cells/uL ABSOLUTE MYELOCYTES (test code = 27190-6) DNR cells/uL ABSOLUTE PROMYELOCYTES (test code = 02031-5) DNR cells/uL ABSOLUTE LYMPHOCYTES (test code = 731-0) 2290 cells/uL ABSOLUTE MONOCYTES (test code = 742-7) 524 cells/uL ABSOLUTE EOSINOPHILS (test code = 711-2) 364 cells/uL ABSOLUTE BASOPHILS (test code = 704-7) 64 cells/uL ABSOLUTE BLASTS (test code = 37844-0) DNR cells/uL ABSOLUTE NUCLEATED RBC (test code = 88225-6) DNR cells/uL NEUTROPHILS (test code = 770-8) 69.7 % BAND NEUTROPHILS (test code = 764-1) DNR % METAMYELOCYTES (test code = 740-1) DNR % MYELOCYTES (test code = 749-2) DNR % PROMYELOCYTES (test code = 783-1) DNR % LYMPHOCYTES (test code = 736-9) 21.4 % REACTIVE LYMPHOCYTES (test code = 14646-4) DNR % MONOCYTES (test code = 5905-5) 4.9 % EOSINOPHILS (test code = 713-8) 3.4 % BASOPHILS (test code = 706-2) 0.6 % BLASTS (test code = 709-6) DNR % NUCLEATED RBC (test code = 13911-4) DNR /100WBC COMMENT(S) (test code = 8251-1) LIPID PANEL (REFL)2019-06-20 00:00:00* Test Item Value Reference Range Interpretation Comme nts CHOLESTEROL, TOTAL (test cod e = 2093-3) 192 mg/dL HDL CHOLESTEROL (test code = 2085-9) 51 mg/dL TRIGLYCERIDES (test code = 2571-8) 221 mg/dL LDL-CHOLESTEROL (test code = 93571-6) 108 mg/dL(calc) CHOL/HDLC RATIO (test code = 9830-1) 3.8 (calc) NON HDL CHOLESTEROL (test code = 43219-4) 141 mg/dL(calc) COMPREHENSIVE METABOLIC [id number] 00:00:00* Test Item Value Reference Range Interpretation Comme nts GLUCOSE (test code = 2345-7) 194 mg/dL UREA NITROGEN (BUN) (test code = 3094-0) 10 mg/dL CREATININE (test code = 2160-0) 0.61 mg/dL eGFR NON-AFR. FRENCH (test code = 50076-2) 116 mL/min/1.73m2 eGFR (test code = 28366-9) 134 mL/min/1.73m2 BUN/CREATININE RATIO (test code = 3097-3) NOT APPLICABLE (calc) SODIUM (test code = 2951-2) 135 mmol/L POTASSIUM (test code = 2823-3) 4.0 mmol/L CHLORIDE (test code = 2075-0) 97 mmol/L CARBON DIOXIDE (test code = 8-9) 26 mmol/L CALCIUM (test code = 44929-7) 9.5 mg/dL PROTEIN, TOTAL (test code = 2885-2) 6.7 g/dL ALBUMIN (test code = 1751-7) 4.0 g/dL GLOBULIN (test code = 86546-7) 2.7 g/dL(calc) ALBUMIN/GLOBULIN RATIO (test code = 1759-0) 1.5 (calc) BILIRUBIN, TOTAL (test code = 1975-2) 0.4 mg/dL ALKALINE PHOSPHATASE (test code = 6768-6) 76 U/L AST (test code = 1920-8) 35 U/L ALT (test code = 1742-6) 39 U/L [id number] 00:00:00* Test Item Value Reference Range Interpretation Comme nts TSH (test code = 3016-3) 2.16 mIU/L HEMOGLOBIN [id number] 00:00:00* Test Item Value Reference Range Interpretation Comme nts HEMOGLOBIN A1c (test code = 4548-4) 10.2 %oftotalHgb HEMOGLOBIN [id number] 00:00:00* Test Item Value Reference Range Interpretation Comme nts HEMOGLOBIN A1c (test code = 77334) 9.5 % Cosmo NievesLIPID [id number] 00:00:00* Test Item Value Reference Range Interpretation Comme nts CHOLESTEROL (test code = 2210) 208 MG/DL TRIGLYCERIDES (test code = 2232) 192 MG/DL HDL CHOLESTEROL (test code = 2220) 48 MG/DL CALC LDL CHOL (test code = 2237) 122 MG/DL RISK RATIO LDL/HDL (test cod e = 2238) 2.53 RATIO Cosmo Veronica EzequielCOMPREHENSIVE METABOLIC [id number] 00:00:00* Test Item Value Reference Range Interpretation Comme nts GLUCOSE (test code = 2217) 236 MG/DL BUN (test code = 2208) 8 MG/DL CREATININE (test code = 2214) 0.67 MG/DL eGFR AMER. (test cod e = 45831) 130 ML/MIN/1.73 eGFR NON- AMER. (test code = 11638) 112 ML/MIN/1.73 CALC BUN/CREAT (test code = 2235) 12 RATIO SODIUM (test code = 2231) 138 MEQ/L POTASSIUM (test code = 2228) 4.7 MEQ/L CHLORIDE (test code = 2215) 96 MEQ/L CARBON DIOXIDE (test code = 2206) 27 MEQ/L CALCIUM (test code = 2209) 10.0 MG/DL PROTEIN, TOTAL (test code = 2229) 7.1 G/DL ALBUMIN (test code = 2201) 4.3 G/DL CALC GLOBULIN (test code = 2240) 2.8 G/DL CALC A/G RATIO (test code = 2234) 1.5 RATIO BILIRUBIN, TOTAL (test code = 2207) 0.4 MG/DL ALKALINE PHOSPHATASE (test code = 2204) 83 U/L AST (test code = 2218) 75 U/L ALT (test code = 2219) 62 U/L Cosmo [id number] 00:00:00* Test Item Value Reference Range Interpretation Comme parisa TSH, THIRD GENERATION (test code = 2821) 1.550 UIU/ML Cosmo NievesCBC W/AUTO [id number] 00:00:00* Test Item Value Reference Range Interpretation Comme nts WBC (test code = 1001) 11.9 K/UL RBC (test code = 1002) 4.57 M/UL HEMOGLOBIN (test code = 1003) 12.6 G/DL HEMATOCRIT (test code = 1004) 36.8 % MCV (test code = 1005) 80.5 fL MCH (test code = 1006) 27.6 PG MCHC (test code = 1007) 34.2 G/DL RDW (test code = 1038) 13.6 % NEUTROPHILS (test code = 1008) 70.5 % LYMPHOCYTES (test code = 1010) 21.2 % MONOCYTES (test code = 1011) 4.9 % EOSINOPHILS (test code = 1012) 2.9 % BASOPHILS (test code = 1013) 0.5 % PLATELET COUNT (test code = 1015) 304 K/UL Cosmo NievesHEMOGLOBIN [id number] 00:00:00* Test Item Value Reference Range Interpretation Comme parisa HEMOGLOBIN A1c (test code = 73347) 9.5 % Cosmo NievesLIPID [id number] 00:00:00* Test Item Value Reference Range Interpretation Comme nts CHOLESTEROL (test code = 2210) 208 MG/DL TRIGLYCERIDES (test code = 2232) 192 MG/DL HDL CHOLESTEROL (test code = 2220) 48 MG/DL CALC LDL CHOL (test code = 2237) 122 MG/DL RISK RATIO LDL/HDL (test cod e = 2238) 2.53 RATIO Cosmo NievesCOMPREHENSIVE METABOLIC [id number] 00:00:00* Test Item Value Reference Range Interpretation Comme nts GLUCOSE (test code = 2217) 236 MG/DL BUN (test code = 2208) 8 MG/DL CREATININE (test code = 2214) 0.67 MG/DL eGFR AMER. (test cod e = 63962) 130 ML/MIN/1.73 eGFR NON- AMER. (test code = 87594) 112 ML/MIN/1.73 CALC BUN/CREAT (test code = 2235) 12 RATIO SODIUM (test code = 2231) 138 MEQ/L POTASSIUM (test code = 2228) 4.7 MEQ/L CHLORIDE (test code = 2215) 96 MEQ/L CARBON DIOXIDE (test code = 2206) 27 MEQ/L CALCIUM (test code = 2209) 10.0 MG/DL PROTEIN, TOTAL (test code = 2229) 7.1 G/DL ALBUMIN (test code = 2201) 4.3 G/DL CALC GLOBULIN (test code = 2240) 2.8 G/DL CALC A/G RATIO (test code = 2234) 1.5 RATIO BILIRUBIN, TOTAL (test code = 2207) 0.4 MG/DL ALKALINE PHOSPHATASE (test code = 2204) 83 U/L AST (test code = 2218) 75 U/L ALT (test code = 2219) 62 U/L Cosmo [id number] 00:00:00* Test Item Value Reference Range Interpretation Comme nts TSH, THIRD GENERATION (test code = 2821) 1.550 UIU/ML Cosmo NievesCBC W/AUTO [id number] 00:00:00* Test Item Value Reference Range Interpretation Comme nts WBC (test code = 1001) 11.9 K/UL RBC (test code = 1002) 4.57 M/UL HEMOGLOBIN (test code = 1003) 12.6 G/DL HEMATOCRIT (test code = 1004) 36.8 % MCV (test code = 1005) 80.5 fL MCH (test code = 1006) 27.6 PG MCHC (test code = 1007) 34.2 G/DL RDW (test code = 1038) 13.6 % NEUTROPHILS (test code = 1008) 70.5 % LYMPHOCYTES (test code = 1010) 21.2 % MONOCYTES (test code = 1011) 4.9 % EOSINOPHILS (test code = 1012) 2.9 % BASOPHILS (test code = 1013) 0.5 % PLATELET COUNT (test code = 1015) 304 K/UL Cosmo Martin [facility] W/AUTO [id number] 00:00:00* Test Item Value Reference Range Interpretation Comme nts WBC (test code = 1001) 11.9 K/UL RBC (test code = 1002) 4.57 M/UL HEMOGLOBIN (test code = 1003) 12.6 G/DL HEMATOCRIT (test code = 1004) 36.8 % MCV (test code = 1005) 80.5 fL MCH (test code = 1006) 27.6 PG MCHC (test code = 1007) 34.2 G/DL RDW (test code = 1038) 13.6 % NEUTROPHILS (test code = 1008) 70.5 % LYMPHOCYTES (test code = 1010) 21.2 % MONOCYTES (test code = 1011) 4.9 % EOSINOPHILS (test code = 1012) 2.9 % BASOPHILS (test code = 1013) 0.5 % PLATELET COUNT (test code = 1015) 304 K/UL HEMOGLOBIN [id number] 00:00:00* Test Item Value Reference Range Interpretation Comme nts HEMOGLOBIN A1c (test code = 04552) 9.5 % LIPID [id number] 00:00:00* Test Item Value Reference Range Interpretation Comme nts CHOLESTEROL (test code = 2210) 208 MG/DL TRIGLYCERIDES (test code = 2232) 192 MG/DL HDL CHOLESTEROL (test code = 2220) 48 MG/DL CALC LDL CHOL (test code = 2237) 122 MG/DL RISK RATIO LDL/HDL (test cod e = 2238) 2.53 RATIO COMPREHENSIVE METABOLIC [id number] 00:00:00* Test Item Value Reference Range Interpretation Comme nts GLUCOSE (test code = 2217) 236 MG/DL BUN (test code = 2208) 8 MG/DL CREATININE (test code = 2214) 0.67 MG/DL eGFR AMER. (test cod e = 49510) 130 ML/MIN/1.73 eGFR NON- AMER. (test code = 07123) 112 ML/MIN/1.73 CALC BUN/CREAT (test code = 2235) 12 RATIO SODIUM (test code = 2231) 138 MEQ/L POTASSIUM (test code = 2228) 4.7 MEQ/L CHLORIDE (test code = 2215) 96 MEQ/L CARBON DIOXIDE (test code = 2206) 27 MEQ/L CALCIUM (test code = 2209) 10.0 MG/DL PROTEIN, TOTAL (test code = 2229) 7.1 G/DL ALBUMIN (test code = 2201) 4.3 G/DL CALC GLOBULIN (test code = 2240) 2.8 G/DL CALC A/G RATIO (test code = 2234) 1.5 RATIO BILIRUBIN, TOTAL (test code = 2207) 0.4 MG/DL ALKALINE PHOSPHATASE (test code = 2204) 83 U/L AST (test code = 2218) 75 U/L ALT (test code = 2219) 62 U/L [id number] 00:00:00* Test Item Value Reference Range Interpretation Comme nts TSH, THIRD GENERATION (test code = 2821) 1.550 UIU/ML CBC W/AUTO [id number] 00:00:00* Test Item Value Reference Range Interpretation Comme nts WBC (test code = 1001) 11.9 K/UL RBC (test code = 1002) 4.57 M/UL HEMOGLOBIN (test code = 1003) 12.6 G/DL HEMATOCRIT (test code = 1004) 36.8 % MCV (test code = 1005) 80.5 fL MCH (test code = 1006) 27.6 PG MCHC (test code = 1007) 34.2 G/DL RDW (test code = 1038) 13.6 % NEUTROPHILS (test code = 1008) 70.5 % LYMPHOCYTES (test code = 1010) 21.2 % MONOCYTES (test code = 1011) 4.9 % EOSINOPHILS (test code = 1012) 2.9 % BASOPHILS (test code = 1013) 0.5 % PLATELET COUNT (test code = 1015) 304 K/UL HEMOGLOBIN [id number] 00:00:00* Test Item Value Reference Range Interpretation Comme nts HEMOGLOBIN A1c (test code = 83074) 9.5 % LIPID [id number] 00:00:00* Test Item Value Reference Range Interpretation Comme nts CHOLESTEROL (test code = 2210) 208 MG/DL TRIGLYCERIDES (test code = 2232) 192 MG/DL HDL CHOLESTEROL (test code = 2220) 48 MG/DL CALC LDL CHOL (test code = 2237) 122 MG/DL RISK RATIO LDL/HDL (test cod e = 2238) 2.53 RATIO COMPREHENSIVE METABOLIC [id number] 00:00:00* Test Item Value Reference Range Interpretation Comme nts GLUCOSE (test code = 2217) 236 MG/DL BUN (test code = 2208) 8 MG/DL CREATININE (test code = 2214) 0.67 MG/DL eGFR AMER. (test cod e = 54499) 130 ML/MIN/1.73 eGFR NON- AMER. (test code = 63681) 112 ML/MIN/1.73 CALC BUN/CREAT (test code = 2235) 12 RATIO SODIUM (test code = 2231) 138 MEQ/L POTASSIUM (test code = 2228) 4.7 MEQ/L CHLORIDE (test code = 2215) 96 MEQ/L CARBON DIOXIDE (test code = 2206) 27 MEQ/L CALCIUM (test code = 2209) 10.0 MG/DL PROTEIN, TOTAL (test code = 2229) 7.1 G/DL ALBUMIN (test code = 2201) 4.3 G/DL CALC GLOBULIN (test code = 2240) 2.8 G/DL CALC A/G RATIO (test code = 2234) 1.5 RATIO BILIRUBIN, TOTAL (test code = 2207) 0.4 MG/DL ALKALINE PHOSPHATASE (test code = 2204) 83 U/L AST (test code = 2218) 75 U/L ALT (test code = 2219) 62 U/L [id number] 00:00:00* Test Item Value Reference Range Interpretation Comme nts TSH, THIRD GENERATION (test code = 2821) 1.550 UIU/ML LIPID [id number] 00:00:00* Test Item Value Reference Range Interpretation Comme nts CHOLESTEROL (test code = 2210) 209 MG/DL TRIGLYCERIDES (test code = 2232) 137 MG/DL HDL CHOLESTEROL (test code = 2220) 49 MG/DL CALC LDL CHOL (test code = 2237) 133 MG/DL RISK RATIO LDL/HDL (test cod e = 2238) 2.71 RATIO Cosmo NievesCOMPREHENSIVE METABOLIC [id number] 00:00:00* Test Item Value Reference Range Interpretation Comme nts GLUCOSE (test code = 2217) 222 MG/DL BUN (test code = 2208) 10 MG/DL CREATININE (test code = 2214) 0.63 MG/DL eGFR AMER. (test cod e = 27295) 134 ML/MIN/1.73 eGFR NON- AMER. (test code = 05704) 115 ML/MIN/1.73 CALC BUN/CREAT (test code = 2235) 16 RATIO SODIUM (test code = 2231) 139 MEQ/L POTASSIUM (test code = 2228) 4.2 MEQ/L CHLORIDE (test code = 2215) 97 MEQ/L CARBON DIOXIDE (test code = 2206) 24 MEQ/L CALCIUM (test code = 2209) 9.2 MG/DL PROTEIN, TOTAL (test code = 2229) 7.0 G/DL ALBUMIN (test code = 2201) 4.2 G/DL CALC GLOBULIN (test code = 2240) 2.8 G/DL CALC A/G RATIO (test code = 2234) 1.5 RATIO BILIRUBIN, TOTAL (test code = 2207) 0.5 MG/DL ALKALINE PHOSPHATASE (test code = 2204) 73 U/L AST (test code = 2218) 69 U/L ALT (test code = 2219) 48 U/L Cosmo [id number] 00:00:00* Test Item Value Reference Range Interpretation Comme nts TSH, THIRD GENERATION (test code = 2821) 2.380 UIU/ML Cosmo Martin AustinLIPID [id number] 00:00:00* Test Item Value Reference Range Interpretation Comme nts CHOLESTEROL (test code = 2210) 209 MG/DL TRIGLYCERIDES (test code = 2232) 137 MG/DL HDL CHOLESTEROL (test code = 2220) 49 MG/DL CALC LDL CHOL (test code = 2237) 133 MG/DL RISK RATIO LDL/HDL (test cod e = 2238) 2.71 RATIO Cosmo NievesCOMPREHENSIVE METABOLIC [id number] 00:00:00* Test Item Value Reference Range Interpretation Comme nts GLUCOSE (test code = 2217) 222 MG/DL BUN (test code = 2208) 10 MG/DL CREATININE (test code = 2214) 0.63 MG/DL eGFR AMER. (test cod e = 03405) 134 ML/MIN/1.73 eGFR NON- AMER. (test code = 97861) 115 ML/MIN/1.73 CALC BUN/CREAT (test code = 2235) 16 RATIO SODIUM (test code = 2231) 139 MEQ/L POTASSIUM (test code = 2228) 4.2 MEQ/L CHLORIDE (test code = 2215) 97 MEQ/L CARBON DIOXIDE (test code = 2206) 24 MEQ/L CALCIUM (test code = 2209) 9.2 MG/DL PROTEIN, TOTAL (test code = 2229) 7.0 G/DL ALBUMIN (test code = 2201) 4.2 G/DL CALC GLOBULIN (test code = 2240) 2.8 G/DL CALC A/G RATIO (test code = 2234) 1.5 RATIO BILIRUBIN, TOTAL (test code = 2207) 0.5 MG/DL ALKALINE PHOSPHATASE (test code = 2204) 73 U/L AST (test code = 2218) 69 U/L ALT (test code = 2219) 48 U/L Cosmo [id number] 00:00:00* Test Item Value Reference Range Interpretation Comme nts TSH, THIRD GENERATION (test code = 2821) 2.380 UIU/ML Cosmo Martin AustinLIPID [id number] 00:00:00* Test Item Value Reference Range Interpretation Comme nts CHOLESTEROL (test code = 2210) 209 MG/DL TRIGLYCERIDES (test code = 2232) 137 MG/DL HDL CHOLESTEROL (test code = 2220) 49 MG/DL CALC LDL CHOL (test code = 2237) 133 MG/DL RISK RATIO LDL/HDL (test cod e = 2238) 2.71 RATIO COMPREHENSIVE METABOLIC [id number] 00:00:00* Test Item Value Reference Range Interpretation Comme nts GLUCOSE (test code = 2217) 222 MG/DL BUN (test code = 2208) 10 MG/DL CREATININE (test code = 2214) 0.63 MG/DL eGFR AMER. (test cod e = 94712) 134 ML/MIN/1.73 eGFR NON- AMER. (test code = 27445) 115 ML/MIN/1.73 CALC BUN/CREAT (test code = 2235) 16 RATIO SODIUM (test code = 2231) 139 MEQ/L POTASSIUM (test code = 2228) 4.2 MEQ/L CHLORIDE (test code = 2215) 97 MEQ/L CARBON DIOXIDE (test code = 2206) 24 MEQ/L CALCIUM (test code = 2209) 9.2 MG/DL PROTEIN, TOTAL (test code = 2229) 7.0 G/DL ALBUMIN (test code = 2201) 4.2 G/DL CALC GLOBULIN (test code = 2240) 2.8 G/DL CALC A/G RATIO (test code = 2234) 1.5 RATIO BILIRUBIN, TOTAL (test code = 2207) 0.5 MG/DL ALKALINE PHOSPHATASE (test code = 2204) 73 U/L AST (test code = 2218) 69 U/L ALT (test code = 2219) 48 U/L [id number] 00:00:00* Test Item Value Reference Range Interpretation Comme nts TSH, THIRD GENERATION (test code = 2821) 2.380 UIU/ML LIPID [id number] 00:00:00* Test Item Value Reference Range Interpretation Comme nts CHOLESTEROL (test code = 2210) 209 MG/DL TRIGLYCERIDES (test code = 2232) 137 MG/DL HDL CHOLESTEROL (test code = 2220) 49 MG/DL CALC LDL CHOL (test code = 2237) 133 MG/DL RISK RATIO LDL/HDL (test cod e = 2238) 2.71 RATIO COMPREHENSIVE METABOLIC [id number] 00:00:00* Test Item Value Reference Range Interpretation Comme nts GLUCOSE (test code = 2217) 222 MG/DL BUN (test code = 2208) 10 MG/DL CREATININE (test code = 2214) 0.63 MG/DL eGFR AMER. (test cod e = 93431) 134 ML/MIN/1.73 eGFR NON- AMER. (test code = 03990) 115 ML/MIN/1.73 CALC BUN/CREAT (test code = 2235) 16 RATIO SODIUM (test code = 2231) 139 MEQ/L POTASSIUM (test code = 2228) 4.2 MEQ/L CHLORIDE (test code = 2215) 97 MEQ/L CARBON DIOXIDE (test code = 2206) 24 MEQ/L CALCIUM (test code = 2209) 9.2 MG/DL PROTEIN, TOTAL (test code = 2229) 7.0 G/DL ALBUMIN (test code = 2201) 4.2 G/DL CALC GLOBULIN (test code = 2240) 2.8 G/DL CALC A/G RATIO (test code = 2234) 1.5 RATIO BILIRUBIN, TOTAL (test code = 2207) 0.5 MG/DL ALKALINE PHOSPHATASE (test code = 2204) 73 U/L AST (test code = 2218) 69 U/L ALT (test code = 2219) 48 U/L [id number] 00:00:00* Test Item Value Reference Range Interpretation Comme nts TSH, THIRD GENERATION (test code = 2821) 2.380 UIU/ML HEMOGLOBIN [id number] 00:00:00* Test Item Value Reference Range Interpretation Comme nts HEMOGLOBIN A1c (test code = 41358) 9.9 % Cosmo Martin AustinHEMOGLOBIN [id number] 00:00:00* Test Item Value Reference Range Interpretation Comme nts HEMOGLOBIN A1c (test code = 39092) 9.9 % Cosmo F AustinHEMOGLOBIN [id number] 00:00:00* Test Item Value Reference Range Interpretation Comme nts HEMOGLOBIN A1c (test code = 82818) 9.9 % HEMOGLOBIN [id number] 00:00:00* Test Item Value Reference Range Interpretation Comme nts HEMOGLOBIN A1c (test code = 09075) 9.9 % HEMOGLOBIN [id number] 00:00:00* Test Item Value Reference Range Interpretation Comme nts HEMOGLOBIN A1c (test code = 73938) 9.5 % Cosmo F AustinHEMOGLOBIN [id number] 00:00:00* Test Item Value Reference Range Interpretation Comme nts HEMOGLOBIN A1c (test code = 34068) 9.5 % Cosmo F AustinHEMOGLOBIN [id number] 00:00:00* Test Item Value Reference Range Interpretation Comme nts HEMOGLOBIN A1c (test code = 78195) 9.5 % HEMOGLOBIN [id number] 00:00:00* Test Item Value Reference Range Interpretation Comme nts HEMOGLOBIN A1c (test code = 31279) 9.5 % LIPID [id number] 00:00:00* Test Item Value Reference Range Interpretation Comme nts CHOLESTEROL (test code = 2210) 195 MG/DL TRIGLYCERIDES (test code = 2232) 188 MG/DL HDL CHOLESTEROL (test code = 2220) 47 MG/DL CALC LDL CHOL (test code = 2237) 110 MG/DL RISK RATIO LDL/HDL (test cod e = 2238) 2.35 RATIO Cosmo [id number] 00:00:00* Test Item Value Reference Range Interpretation Comme nts TSH (test code = 2821) 2.920 UIU/ML Cosmo NievesCOMPREHENSIVE METABOLIC [id number] 00:00:00* Test Item Value Reference Range Interpretation Comme nts GLUCOSE (test code = 2217) 233 MG/DL BUN (test code = 2208) 11 MG/DL CREATININE (test code = 2214) 0.59 MG/DL eGFR AMER. (test cod e = 53865) 137 ML/MIN/1.73 eGFR NON- AMER. (test code = 67287) 118 ML/MIN/1.73 CALC BUN/CREAT (test code = 2235) 19 RATIO SODIUM (test code = 2231) 137 MEQ/L POTASSIUM (test code = 2228) 4.3 MEQ/L CHLORIDE (test code = 2215) 93 MEQ/L CARBON DIOXIDE (test code = 2206) 24 MEQ/L CALCIUM (test code = 2209) 9.8 MG/DL PROTEIN, TOTAL (test code = 2229) 7.1 G/DL ALBUMIN (test code = 2201) 4.1 G/DL CALC GLOBULIN (test code = 2240) 3.0 G/DL CALC A/G RATIO (test code = 2234) 1.4 RATIO BILIRUBIN, TOTAL (test code = 2207) 0.5 MG/DL ALKALINE PHOSPHATASE (test code = 2204) 70 U/L AST (test code = 2218) 55 U/L ALT (test code = 2219) 49 U/L Cosmo NievesLIPID [id number] 00:00:00* Test Item Value Reference Range Interpretation Comme nts CHOLESTEROL (test code = 2210) 195 MG/DL TRIGLYCERIDES (test code = 2232) 188 MG/DL HDL CHOLESTEROL (test code = 2220) 47 MG/DL CALC LDL CHOL (test code = 2237) 110 MG/DL RISK RATIO LDL/HDL (test cod e = 2238) 2.35 RATIO Cosmo Martin [id number] 00:00:00* Test Item Value Reference Range Interpretation Comme nts TSH (test code = 2821) 2.920 UIU/ML Cosmo Martin [place] ShadeCOMPREHENSIVE METABOLIC [id number] 00:00:00* Test Item Value Reference Range Interpretation Comme nts GLUCOSE (test code = 2217) 233 MG/DL BUN (test code = 2208) 11 MG/DL CREATININE (test code = 2214) 0.59 MG/DL eGFR AMER. (test cod e = 80134) 137 ML/MIN/1.73 eGFR NON- AMER. (test code = 41168) 118 ML/MIN/1.73 CALC BUN/CREAT (test code = 2235) 19 RATIO SODIUM (test code = 2231) 137 MEQ/L POTASSIUM (test code = 2228) 4.3 MEQ/L CHLORIDE (test code = 2215) 93 MEQ/L CARBON DIOXIDE (test code = 2206) 24 MEQ/L CALCIUM (test code = 2209) 9.8 MG/DL PROTEIN, TOTAL (test code = 2229) 7.1 G/DL ALBUMIN (test code = 2201) 4.1 G/DL CALC GLOBULIN (test code = 2240) 3.0 G/DL CALC A/G RATIO (test code = 2234) 1.4 RATIO BILIRUBIN, TOTAL (test code = 2207) 0.5 MG/DL ALKALINE PHOSPHATASE (test code = 2204) 70 U/L AST (test code = 2218) 55 U/L ALT (test code = 2219) 49 U/L Cosmo NievesCOX NORTHPREHENSIVE METABOLIC [id number] 00:00:00* Test Item Value Reference Range Interpretation Comme nts GLUCOSE (test code = 2217) 233 MG/DL BUN (test code = 2208) 11 MG/DL CREATININE (test code = 2214) 0.59 MG/DL eGFR AMER. (test cod e = 64918) 137 ML/MIN/1.73 eGFR NON- AMER. (test code = 57935) 118 ML/MIN/1.73 CALC BUN/CREAT (test code = 2235) 19 RATIO SODIUM (test code = 2231) 137 MEQ/L POTASSIUM (test code = 2228) 4.3 MEQ/L CHLORIDE (test code = 2215) 93 MEQ/L CARBON DIOXIDE (test code = 2206) 24 MEQ/L CALCIUM (test code = 2209) 9.8 MG/DL PROTEIN, TOTAL (test code = 2229) 7.1 G/DL ALBUMIN (test code = 2201) 4.1 G/DL CALC GLOBULIN (test code = 2240) 3.0 G/DL CALC A/G RATIO (test code = 2234) 1.4 RATIO BILIRUBIN, TOTAL (test code = 2207) 0.5 MG/DL ALKALINE PHOSPHATASE (test code = 2204) 70 U/L AST (test code = 2218) 55 U/L ALT (test code = 2219) 49 U/L LIPID [id number] 00:00:00* Test Item Value Reference Range Interpretation Comme nts CHOLESTEROL (test code = 2210) 195 MG/DL TRIGLYCERIDES (test code = 2232) 188 MG/DL HDL CHOLESTEROL (test code = 2220) 47 MG/DL CALC LDL CHOL (test code = 2237) 110 MG/DL RISK RATIO LDL/HDL (test cod e = 2238) 2.35 RATIO [id number] 00:00:00* Test Item Value Reference Range Interpretation Comme nts TSH (test code = 2821) 2.920 UIU/ML COMPREHENSIVE METABOLIC [id number] 00:00:00* Test Item Value Reference Range Interpretation Comme nts GLUCOSE (test code = 2217) 233 MG/DL BUN (test code = 8) 11 MG/DL CREATININE (test code = 2214) 0.59 MG/DL eGFR AMER. (test cod e = 67320) 137 ML/MIN/1.73 eGFR NON- AMER. (test code = 68162) 118 ML/MIN/1.73 CALC BUN/CREAT (test code = 2235) 19 RATIO SODIUM (test code = 2231) 137 MEQ/L POTASSIUM (test code = 2228) 4.3 MEQ/L CHLORIDE (test code = 2215) 93 MEQ/L CARBON DIOXIDE (test code = 2206) 24 MEQ/L CALCIUM (test code = 2209) 9.8 MG/DL PROTEIN, TOTAL (test code = 2229) 7.1 G/DL ALBUMIN (test code = 2201) 4.1 G/DL CALC GLOBULIN (test code = 2240) 3.0 G/DL CALC A/G RATIO (test code = 2234) 1.4 RATIO BILIRUBIN, TOTAL (test code = 2207) 0.5 MG/DL ALKALINE PHOSPHATASE (test code = 2204) 70 U/L AST (test code = 2218) 55 U/L ALT (test code = 2219) 49 U/L LIPID [id number] 00:00:00* Test Item Value Reference Range Interpretation Comme nts CHOLESTEROL (test code = 2210) 195 MG/DL TRIGLYCERIDES (test code = 2232) 188 MG/DL HDL CHOLESTEROL (test code = 2220) 47 MG/DL CALC LDL CHOL (test code = 2237) 110 MG/DL RISK RATIO LDL/HDL (test cod e = 2238) 2.35 RATIO [id number] 00:00:00* Test Item Value Reference Range Interpretation Comme nts TSH (test code = 2821) 2.920 UIU/ML CBC W/AUTO [id number] 00:00:00* Test Item Value Reference Range Interpretation Comme nts WBC (test code = 1001) 10.0 K/UL RBC (test code = 1002) 4.83 M/UL HEMOGLOBIN (test code = 1003) 13.4 G/DL HEMATOCRIT (test code = 1004) 38.9 % MCV (test code = 1005) 80.5 fL MCH (test code = 1006) 27.7 PG MCHC (test code = 1007) 34.4 G/DL RDW (test code = 1038) 14.1 % NEUTROPHILS (test code = 1008) 66.8 % LYMPHOCYTES (test code = 1010) 24.7 % MONOCYTES (test code = 1011) 5.7 % EOSINOPHILS (test code = 1012) 2.2 % BASOPHILS (test code = 1013) 0.6 % PLATELET COUNT (test code = 1015) 259 K/UL Cosmo Veronica EzequielCBC W/AUTO [id number] 00:00:00* Test Item Value Reference Range Interpretation Comme nts WBC (test code = 1001) 10.0 K/UL RBC (test code = 1002) 4.83 M/UL HEMOGLOBIN (test code = 1003) 13.4 G/DL HEMATOCRIT (test code = 1004) 38.9 % MCV (test code = 1005) 80.5 fL MCH (test code = 1006) 27.7 PG MCHC (test code = 1007) 34.4 G/DL RDW (test code = 1038) 14.1 % NEUTROPHILS (test code = 1008) 66.8 % LYMPHOCYTES (test code = 1010) 24.7 % MONOCYTES (test code = 1011) 5.7 % EOSINOPHILS (test code = 1012) 2.2 % BASOPHILS (test code = 1013) 0.6 % PLATELET COUNT (test code = 1015) 259 K/UL Cosmo NievesCBC W/AUTO [id number] 00:00:00* Test Item Value Reference Range Interpretation Comme nts WBC (test code = 1001) 10.0 K/UL RBC (test code = 1002) 4.83 M/UL HEMOGLOBIN (test code = 1003) 13.4 G/DL HEMATOCRIT (test code = 1004) 38.9 % MCV (test code = 1005) 80.5 fL MCH (test code = 1006) 27.7 PG MCHC (test code = 1007) 34.4 G/DL RDW (test code = 1038) 14.1 % NEUTROPHILS (test code = 1008) 66.8 % LYMPHOCYTES (test code = 1010) 24.7 % MONOCYTES (test code = 1011) 5.7 % EOSINOPHILS (test code = 1012) 2.2 % BASOPHILS (test code = 1013) 0.6 % PLATELET COUNT (test code = 1015) 259 K/UL CBC W/AUTO [id number] 00:00:00* Test Item Value Reference Range Interpretation Comme nts WBC (test code = 1001) 10.0 K/UL RBC (test code = 1002) 4.83 M/UL HEMOGLOBIN (test code = 1003) 13.4 G/DL HEMATOCRIT (test code = 1004) 38.9 % MCV (test code = 1005) 80.5 fL MCH (test code = 1006) 27.7 PG MCHC (test code = 1007) 34.4 G/DL RDW (test code = 1038) 14.1 % NEUTROPHILS (test code = 1008) 66.8 % LYMPHOCYTES (test code = 1010) 24.7 % MONOCYTES (test code = 1011) 5.7 % EOSINOPHILS (test code = 1012) 2.2 % BASOPHILS (test code = 1013) 0.6 % PLATELET COUNT (test code = 1015) 259 K/UL COMPREHENSIVE METABOLIC [id number] 00:00:00* Test Item Value Reference Range Interpretation Comme nts GLUCOSE (test code = 2217) 184 MG/DL BUN (test code = 2208) 9 MG/DL CREATININE (test code = 2214) 0.74 MG/DL eGFR AMER. (test cod e = 30637) 122 ML/MIN/1.73 eGFR NON- AMER. (test code = 78476) 105 ML/MIN/1.73 CALC BUN/CREAT (test code = 2235) 12 RATIO SODIUM (test code = 2231) 138 MEQ/L POTASSIUM (test code = 2228) 4.1 MEQ/L CHLORIDE (test code = 2215) 96 MEQ/L CARBON DIOXIDE (test code = 2206) 25 MEQ/L CALCIUM (test code = 2209) 9.2 MG/DL PROTEIN, TOTAL (test code = 2229) 6.8 G/DL ALBUMIN (test code = 2201) 4.0 G/DL CALC GLOBULIN (test code = 2240) 2.8 G/DL CALC A/G RATIO (test code = 2234) 1.4 RATIO BILIRUBIN, TOTAL (test code = 2207) 0.5 MG/DL ALKALINE PHOSPHATASE (test code = 2204) 60 U/L AST (test code = 2218) 53 U/L ALT (test code = 2219) 53 U/L Cosmo NievesCBCarolyn W/AUTO [id number] 00:00:00* Test Item Value Reference Range Interpretation Comme nts WBC (test code = 1001) 11.9 K/UL RBC (test code = 1002) 4.47 M/UL HEMOGLOBIN (test code = 1003) 12.8 G/DL HEMATOCRIT (test code = 1004) 37.0 % MCV (test code = 1005) 82.8 fL MCH (test code = 1006) 28.6 PG MCHC (test code = 1007) 34.6 G/DL RDW (test code = 1038) 13.4 % NEUTROPHILS (test code = 1008) 72.6 % LYMPHOCYTES (test code = 1010) 19.6 % MONOCYTES (test code = 1011) 4.8 % EOSINOPHILS (test code = 1012) 2.5 % BASOPHILS (test code = 1013) 0.5 % PLATELET COUNT (test code = 1015) 256 K/UL Cosmo NievesHEMOGLOBIN [id number] 00:00:00* Test Item Value Reference Range Interpretation Comme parisa HEMOGLOBIN A1c (test code = 00918) 6.5 % Cosmo [id number] 00:00:00* Test Item Value Reference Range Interpretation Comme nts TSH (test code = 2821) 1.820 UIU/ML Cosmo NievesCOMPREHENSIVE METABOLIC [id number] 00:00:00* Test Item Value Reference Range Interpretation Comme nts GLUCOSE (test code = 2217) 184 MG/DL BUN (test code = 2208) 9 MG/DL CREATININE (test code = 2214) 0.74 MG/DL eGFR AMER. (test cod e = 27604) 122 ML/MIN/1.73 eGFR NON- AMER. (test code = 25132) 105 ML/MIN/1.73 CALC BUN/CREAT (test code = 2235) 12 RATIO SODIUM (test code = 2231) 138 MEQ/L POTASSIUM (test code = 2228) 4.1 MEQ/L CHLORIDE (test code = 2215) 96 MEQ/L CARBON DIOXIDE (test code = 2206) 25 MEQ/L CALCIUM (test code = 2209) 9.2 MG/DL PROTEIN, TOTAL (test code = 2229) 6.8 G/DL ALBUMIN (test code = 2201) 4.0 G/DL CALC GLOBULIN (test code = 2240) 2.8 G/DL CALC A/G RATIO (test code = 2234) 1.4 RATIO BILIRUBIN, TOTAL (test code = 2207) 0.5 MG/DL ALKALINE PHOSPHATASE (test code = 2204) 60 U/L AST (test code = 2218) 53 U/L ALT (test code = 2219) 53 U/L Cosmo NievesCBC W/AUTO [id number] 00:00:00* Test Item Value Reference Range Interpretation Comme nts WBC (test code = 1001) 11.9 K/UL RBC (test code = 1002) 4.47 M/UL HEMOGLOBIN (test code = 1003) 12.8 G/DL HEMATOCRIT (test code = 1004) 37.0 % MCV (test code = 1005) 82.8 fL MCH (test code = 1006) 28.6 PG MCHC (test code = 1007) 34.6 G/DL RDW (test code = 1038) 13.4 % NEUTROPHILS (test code = 1008) 72.6 % LYMPHOCYTES (test code = 1010) 19.6 % MONOCYTES (test code = 1011) 4.8 % EOSINOPHILS (test code = 1012) 2.5 % BASOPHILS (test code = 1013) 0.5 % PLATELET COUNT (test code = 1015) 256 K/UL Cosmo NievesHEMOGLOBIN [id number] 00:00:00* Test Item Value Reference Range Interpretation Comme parisa HEMOGLOBIN A1c (test code = 97029) 6.5 % Cosmo Martin [id number] 00:00:00* Test Item Value Reference Range Interpretation Comme nts TSH (test code = 2821) 1.820 UIU/ML Cosmo NievesCOMPREHENSIVE METABOLIC [id number] 00:00:00* Test Item Value Reference Range Interpretation Comme nts GLUCOSE (test code = 2217) 184 MG/DL BUN (test code = 2208) 9 MG/DL CREATININE (test code = 2214) 0.74 MG/DL eGFR AMER. (test cod e = 01337) 122 ML/MIN/1.73 eGFR NON- AMER. (test code = 11013) 105 ML/MIN/1.73 CALC BUN/CREAT (test code = 2235) 12 RATIO SODIUM (test code = 2231) 138 MEQ/L POTASSIUM (test code = 2228) 4.1 MEQ/L CHLORIDE (test code = 2215) 96 MEQ/L CARBON DIOXIDE (test code = 2206) 25 MEQ/L CALCIUM (test code = 2209) 9.2 MG/DL PROTEIN, TOTAL (test code = 2229) 6.8 G/DL ALBUMIN (test code = 2201) 4.0 G/DL CALC GLOBULIN (test code = 2240) 2.8 G/DL CALC A/G RATIO (test code = 2234) 1.4 RATIO BILIRUBIN, TOTAL (test code = 2207) 0.5 MG/DL ALKALINE PHOSPHATASE (test code = 2204) 60 U/L AST (test code = 2218) 53 U/L ALT (test code = 2219) 53 U/L CBC W/AUTO [id number] 00:00:00* Test Item Value Reference Range Interpretation Comme nts WBC (test code = 1001) 11.9 K/UL RBC (test code = 1002) 4.47 M/UL HEMOGLOBIN (test code = 1003) 12.8 G/DL HEMATOCRIT (test code = 1004) 37.0 % MCV (test code = 1005) 82.8 fL MCH (test code = 1006) 28.6 PG MCHC (test code = 1007) 34.6 G/DL RDW (test code = 1038) 13.4 % NEUTROPHILS (test code = 1008) 72.6 % LYMPHOCYTES (test code = 1010) 19.6 % MONOCYTES (test code = 1011) 4.8 % EOSINOPHILS (test code = 1012) 2.5 % BASOPHILS (test code = 1013) 0.5 % PLATELET COUNT (test code = 1015) 256 K/UL HEMOGLOBIN [id number] 00:00:00* Test Item Value Reference Range Interpretation Comme nts HEMOGLOBIN A1c (test code = 48570) 6.5 % [id number] 00:00:00* Test Item Value Reference Range Interpretation Comme nts TSH (test code = 2821) 1.820 UIU/ML COMPREHENSIVE METABOLIC [id number] 00:00:00* Test Item Value Reference Range Interpretation Comme nts GLUCOSE (test code = 2217) 184 MG/DL BUN (test code = 2208) 9 MG/DL CREATININE (test code = 2214) 0.74 MG/DL eGFR AMER. (test cod e = 24613) 122 ML/MIN/1.73 eGFR NON- AMER. (test code = 19045) 105 ML/MIN/1.73 CALC BUN/CREAT (test code = 2235) 12 RATIO SODIUM (test code = 2231) 138 MEQ/L POTASSIUM (test code = 2228) 4.1 MEQ/L CHLORIDE (test code = 2215) 96 MEQ/L CARBON DIOXIDE (test code = 2206) 25 MEQ/L CALCIUM (test code = 2209) 9.2 MG/DL PROTEIN, TOTAL (test code = 2229) 6.8 G/DL ALBUMIN (test code = 2201) 4.0 G/DL CALC GLOBULIN (test code = 2240) 2.8 G/DL CALC A/G RATIO (test code = 2234) 1.4 RATIO BILIRUBIN, TOTAL (test code = 2207) 0.5 MG/DL ALKALINE PHOSPHATASE (test code = 2204) 60 U/L AST (test code = 2218) 53 U/L ALT (test code = 2219) 53 U/L CBC W/AUTO [id number] 00:00:00* Test Item Value Reference Range Interpretation Comme nts WBC (test code = 1001) 11.9 K/UL RBC (test code = 1002) 4.47 M/UL HEMOGLOBIN (test code = 1003) 12.8 G/DL HEMATOCRIT (test code = 1004) 37.0 % MCV (test code = 1005) 82.8 fL MCH (test code = 1006) 28.6 PG MCHC (test code = 1007) 34.6 G/DL RDW (test code = 1038) 13.4 % NEUTROPHILS (test code = 1008) 72.6 % LYMPHOCYTES (test code = 1010) 19.6 % MONOCYTES (test code = 1011) 4.8 % EOSINOPHILS (test code = 1012) 2.5 % BASOPHILS (test code = 1013) 0.5 % PLATELET COUNT (test code = 1015) 256 K/UL HEMOGLOBIN [id number] 00:00:00* Test Item Value Reference Range Interpretation Comme nts HEMOGLOBIN A1c (test code = 38722) 6.5 % [id number] 00:00:00* Test Item Value Reference Range Interpretation Comme nts TSH (test code = 2821) 1.820 UIU/ML ACUTE HEPATITIS [id number] 00:00:00* Test Item Value Reference Range Interpretation Comme nts HEPATITIS A IgM (test code = 75188) NON-REACTIVE HEPATITIS B CORE IgM (test c ode = 4644) NON-REACTIVE HEPATITIS B SURF AG (test co de = 9482) NON-REACTIVE HEPATITIS C ANTIBODY (test c ode = 3571) NON-REACTIVE INTERPRETATION HEPATITIS A: (test code = 2552) (NOTE) INTERPRETATION HEPATITIS B: (test code = 85157) (NOTE) INTERPRETATION HEPATITIS C: (test code = 17261) (NOTE) Cosmo NievesACUTE HEPATITIS [id number] 00:00:00* Test Item Value Reference Range Interpretation Comme nts HEPATITIS A IgM (test code = 20741) NON-REACTIVE HEPATITIS B CORE IgM (test c ode = 4644) NON-REACTIVE HEPATITIS B SURF AG (test co de = 2739) NON-REACTIVE HEPATITIS C ANTIBODY (test c ode = 4675) NON-REACTIVE INTERPRETATION HEPATITIS A: (test code = 2552) (NOTE) INTERPRETATION HEPATITIS B: (test code = 99456) (NOTE) INTERPRETATION HEPATITIS C: (test code = 62070) (NOTE) Cosmo NievesACUTE HEPATITIS [id number] 00:00:00* Test Item Value Reference Range Interpretation Comme nts HEPATITIS A IgM (test code = 01635) NON-REACTIVE HEPATITIS B CORE IgM (test c ode = 4644) NON-REACTIVE HEPATITIS B SURF AG (test co de = 2739) NON-REACTIVE HEPATITIS C ANTIBODY (test c ode = 4675) NON-REACTIVE INTERPRETATION HEPATITIS A: (test code = 2552) (NOTE) INTERPRETATION HEPATITIS B: (test code = 39838) (NOTE) INTERPRETATION HEPATITIS C: (test code = 84660) (NOTE) ACUTE HEPATITIS [id number] 00:00:00* Test Item Value Reference Range Interpretation Comme nts HEPATITIS A IgM (test code = 91997) NON-REACTIVE HEPATITIS B CORE IgM (test c ode = 4644) NON-REACTIVE HEPATITIS B SURF AG (test co de = 2739) NON-REACTIVE HEPATITIS C ANTIBODY (test c ode = 4675) NON-REACTIVE INTERPRETATION HEPATITIS A: (test code = 2552) (NOTE) INTERPRETATION HEPATITIS B: (test code = 26387) (NOTE) INTERPRETATION HEPATITIS C: (test code = 42175) (NOTE) [id number] 00:00:00* Test Item Value Reference Range Interpretation Comme nts TSH (test code = 2821) 3.4 UIU/ML Cosmo NievesCOMPREHENSIVE METABOLIC [id number] 00:00:00* Test Item Value Reference Range Interpretation Comme nts GLUCOSE (test code = 2217) 146 MG/DL BUN (test code = 2208) 10 MG/DL CREATININE (test code = 2214) 0.77 MG/DL eGFR AMER. (test cod e = 62757) 116 ML/MIN/1.73 eGFR NON- AMER. (test code = 06325) 100 ML/MIN/1.73 CALC BUN/CREAT (test code = 2235) 13 RATIO SODIUM (test code = 2231) 137 MEQ/L POTASSIUM (test code = 2228) 4.0 MEQ/L CHLORIDE (test code = 2215) 92 MEQ/L CARBON DIOXIDE (test code = 2206) 22 MEQ/L CALCIUM (test code = 2209) 9.5 MG/DL PROTEIN, TOTAL (test code = 2229) 7.1 G/DL ALBUMIN (test code = 2201) 4.3 G/DL CALC GLOBULIN (test code = 2240) 2.8 G/DL CALC A/G RATIO (test code = 2234) 1.5 RATIO BILIRUBIN, TOTAL (test code = 2207) 0.6 MG/DL ALKALINE PHOSPHATASE (test code = 2204) 72 U/L AST (test code = 2218) 59 U/L ALT (test code = 2219) 63 U/L Cosmo Martin [id number] 00:00:00* Test Item Value Reference Range Interpretation Comme nts TSH (test code = 2821) 3.4 UIU/ML Cosmo NievesCOMPREHENSIVE METABOLIC [id number] 00:00:00* Test Item Value Reference Range Interpretation Comme nts GLUCOSE (test code = 2217) 146 MG/DL BUN (test code = 2208) 10 MG/DL CREATININE (test code = 2214) 0.77 MG/DL eGFR AMER. (test cod e = 08126) 116 ML/MIN/1.73 eGFR NON- AMER. (test code = 97630) 100 ML/MIN/1.73 CALC BUN/CREAT (test code = 2235) 13 RATIO SODIUM (test code = 2231) 137 MEQ/L POTASSIUM (test code = 2228) 4.0 MEQ/L CHLORIDE (test code = 2215) 92 MEQ/L CARBON DIOXIDE (test code = 2206) 22 MEQ/L CALCIUM (test code = 2209) 9.5 MG/DL PROTEIN, TOTAL (test code = 2229) 7.1 G/DL ALBUMIN (test code = 2201) 4.3 G/DL CALC GLOBULIN (test code = 2240) 2.8 G/DL CALC A/G RATIO (test code = 2234) 1.5 RATIO BILIRUBIN, TOTAL (test code = 2207) 0.6 MG/DL ALKALINE PHOSPHATASE (test code = 2204) 72 U/L AST (test code = 2218) 59 U/L ALT (test code = 2219) 63 U/L Cosmo NievesCOMPREHENSIVE METABOLIC [id number] 00:00:00* Test Item Value Reference Range Interpretation Comme nts GLUCOSE (test code = 2217) 146 MG/DL BUN (test code = 2208) 10 MG/DL CREATININE (test code = 2214) 0.77 MG/DL eGFR AMER. (test cod e = 40637) 116 ML/MIN/1.73 eGFR NON- AMER. (test code = 90393) 100 ML/MIN/1.73 CALC BUN/CREAT (test code = 2235) 13 RATIO SODIUM (test code = 2231) 137 MEQ/L POTASSIUM (test code = 2228) 4.0 MEQ/L CHLORIDE (test code = 2215) 92 MEQ/L CARBON DIOXIDE (test code = 2206) 22 MEQ/L CALCIUM (test code = 2209) 9.5 MG/DL PROTEIN, TOTAL (test code = 2229) 7.1 G/DL ALBUMIN (test code = 2201) 4.3 G/DL CALC GLOBULIN (test code = 2240) 2.8 G/DL CALC A/G RATIO (test code = 2234) 1.5 RATIO BILIRUBIN, TOTAL (test code = 2207) 0.6 MG/DL ALKALINE PHOSPHATASE (test code = 2204) 72 U/L AST (test code = 2218) 59 U/L ALT (test code = 2219) 63 U/L [id number] 00:00:00* Test Item Value Reference Range Interpretation Comme nts TSH (test code = 2821) 3.4 UIU/ML COMPREHENSIVE METABOLIC [id number] 00:00:00* Test Item Value Reference Range Interpretation Comme nts GLUCOSE (test code = 2217) 146 MG/DL BUN (test code = 2208) 10 MG/DL CREATININE (test code = 2214) 0.77 MG/DL eGFR AMER. (test cod e = 05365) 116 ML/MIN/1.73 eGFR NON- AMER. (test code = 23093) 100 ML/MIN/1.73 CALC BUN/CREAT (test code = 2235) 13 RATIO SODIUM (test code = 2231) 137 MEQ/L POTASSIUM (test code = 2228) 4.0 MEQ/L CHLORIDE (test code = 2215) 92 MEQ/L CARBON DIOXIDE (test code = 2206) 22 MEQ/L CALCIUM (test code = 2209) 9.5 MG/DL PROTEIN, TOTAL (test code = 2229) 7.1 G/DL ALBUMIN (test code = 2201) 4.3 G/DL CALC GLOBULIN (test code = 2240) 2.8 G/DL CALC A/G RATIO (test code = 2234) 1.5 RATIO BILIRUBIN, TOTAL (test code = 2207) 0.6 MG/DL ALKALINE PHOSPHATASE (test code = 2204) 72 U/L AST (test code = 2218) 59 U/L ALT (test code = 2219) 63 U/L [id number] 00:00:00* Test Item Value Reference Range Interpretation Comme nts TSH (test code = 2821) 3.4 UIU/ML HEMOGLOBIN [id number] 00:00:00* Test Item Value Reference Range Interpretation Comme nts HEMOGLOBIN A1c (test code = 79992) 7.9 % Cosmo F AustinHEMOGLOBIN [id number] 00:00:00* Test Item Value Reference Range Interpretation Comme nts HEMOGLOBIN A1c (test code = 28365) 7.9 % Cosmo F AustinHEMOGLOBIN [id number] 00:00:00* Test Item Value Reference Range Interpretation Comme nts HEMOGLOBIN A1c (test code = 76174) 7.9 % HEMOGLOBIN [id number] 00:00:00* Test Item Value Reference Range Interpretation Comme nts HEMOGLOBIN A1c (test code = 80665) 7.9 % LIPID [id number] 00:00:00* Test Item Value Reference Range Interpretation Comme nts CHOLESTEROL (test code = 2210) 171 MG/DL TRIGLYCERIDES (test code = 2232) 137 MG/DL HDL CHOLESTEROL (test code = 2220) 53 MG/DL CALC LDL CHOL (test code = 2237) 91 MG/DL RISK RATIO LDL/HDL (test cod e = 2238) 1.71 RATIO Cosmo [id number] 00:00:00* Test Item Value Reference Range Interpretation Comme nts TSH (test code = 2821) 5.7 UIU/ML Cosmo NievesCOMPREHENSIVE METABOLIC [id number] 00:00:00* Test Item Value Reference Range Interpretation Comme nts GLUCOSE (test code = 2217) 156 MG/DL BUN (test code = 2208) 10 MG/DL CREATININE (test code = 2214) 0.80 MG/DL eGFR AMER. (test cod e = 94767) 111 ML/MIN/1.73 eGFR NON- AMER. (test code = 32356) 96 ML/MIN/1.73 CALC BUN/CREAT (test code = 2235) 13 RATIO SODIUM (test code = 2231) 139 MEQ/L POTASSIUM (test code = 2228) 3.7 MEQ/L CHLORIDE (test code = 2215) 92 MEQ/L CARBON DIOXIDE (test code = 2206) 23 MEQ/L CALCIUM (test code = 2209) 9.3 MG/DL PROTEIN, TOTAL (test code = 2229) 6.6 G/DL ALBUMIN (test code = 2201) 4.3 G/DL CALC GLOBULIN (test code = 2240) 2.3 G/DL CALC A/G RATIO (test code = 2234) 1.9 RATIO BILIRUBIN, TOTAL (test code = 2207) 0.4 MG/DL ALKALINE PHOSPHATASE (test code = 2204) 63 U/L AST (test code = 2218) 60 U/L ALT (test code = 2219) 60 U/L Cosmo NievesLIPID [id number] 00:00:00* Test Item Value Reference Range Interpretation Comme nts CHOLESTEROL (test code = 2210) 171 MG/DL TRIGLYCERIDES (test code = 2232) 137 MG/DL HDL CHOLESTEROL (test code = 2220) 53 MG/DL CALC LDL CHOL (test code = 2237) 91 MG/DL RISK RATIO LDL/HDL (test cod e = 2238) 1.71 RATIO Cosmo [id number] 00:00:00* Test Item Value Reference Range Interpretation Comme nts TSH (test code = 2821) 5.7 UIU/ML Cosmo Martin [place] ShadeCOMPREHENSIVE METABOLIC [id number] 00:00:00* Test Item Value Reference Range Interpretation Comme nts GLUCOSE (test code = 2217) 156 MG/DL BUN (test code = 2208) 10 MG/DL CREATININE (test code = 2214) 0.80 MG/DL eGFR AMER. (test cod e = 11410) 111 ML/MIN/1.73 eGFR NON- AMER. (test code = 46661) 96 ML/MIN/1.73 CALC BUN/CREAT (test code = 2235) 13 RATIO SODIUM (test code = 2231) 139 MEQ/L POTASSIUM (test code = 2228) 3.7 MEQ/L CHLORIDE (test code = 2215) 92 MEQ/L CARBON DIOXIDE (test code = 2206) 23 MEQ/L CALCIUM (test code = 2209) 9.3 MG/DL PROTEIN, TOTAL (test code = 2229) 6.6 G/DL ALBUMIN (test code = 2201) 4.3 G/DL CALC GLOBULIN (test code = 2240) 2.3 G/DL CALC A/G RATIO (test code = 2234) 1.9 RATIO BILIRUBIN, TOTAL (test code = 2207) 0.4 MG/DL ALKALINE PHOSPHATASE (test code = 2204) 63 U/L AST (test code = 2218) 60 U/L ALT (test code = 2219) 60 U/L Cosmo NievesCOMPREHENSIVE METABOLIC [id number] 00:00:00* Test Item Value Reference Range Interpretation Comme nts GLUCOSE (test code = 2217) 156 MG/DL BUN (test code = 2208) 10 MG/DL CREATININE (test code = 2214) 0.80 MG/DL eGFR AMER. (test cod e = 39125) 111 ML/MIN/1.73 eGFR NON- AMER. (test code = 92822) 96 ML/MIN/1.73 CALC BUN/CREAT (test code = 2235) 13 RATIO SODIUM (test code = 2231) 139 MEQ/L POTASSIUM (test code = 2228) 3.7 MEQ/L CHLORIDE (test code = 2215) 92 MEQ/L CARBON DIOXIDE (test code = 2206) 23 MEQ/L CALCIUM (test code = 2209) 9.3 MG/DL PROTEIN, TOTAL (test code = 2229) 6.6 G/DL ALBUMIN (test code = 2201) 4.3 G/DL CALC GLOBULIN (test code = 2240) 2.3 G/DL CALC A/G RATIO (test code = 2234) 1.9 RATIO BILIRUBIN, TOTAL (test code = 2207) 0.4 MG/DL ALKALINE PHOSPHATASE (test code = 2204) 63 U/L AST (test code = 2218) 60 U/L ALT (test code = 2219) 60 U/L LIPID [id number] 00:00:00* Test Item Value Reference Range Interpretation Comme nts CHOLESTEROL (test code = 2210) 171 MG/DL TRIGLYCERIDES (test code = 2232) 137 MG/DL HDL CHOLESTEROL (test code = 2220) 53 MG/DL CALC LDL CHOL (test code = 2237) 91 MG/DL RISK RATIO LDL/HDL (test cod e = 2238) 1.71 RATIO [id number] 00:00:00* Test Item Value Reference Range Interpretation Comme nts TSH (test code = 2821) 5.7 UIU/ML COMPREHENSIVE METABOLIC [id number] 00:00:00* Test Item Value Reference Range Interpretation Comme nts GLUCOSE (test code = 2217) 156 MG/DL BUN (test code = 2208) 10 MG/DL CREATININE (test code = 2214) 0.80 MG/DL eGFR AMER. (test cod e = 37810) 111 ML/MIN/1.73 eGFR NON- AMER. (test code = 97123) 96 ML/MIN/1.73 CALC BUN/CREAT (test code = 2235) 13 RATIO SODIUM (test code = 2231) 139 MEQ/L POTASSIUM (test code = 2228) 3.7 MEQ/L CHLORIDE (test code = 2215) 92 MEQ/L CARBON DIOXIDE (test code = 2206) 23 MEQ/L CALCIUM (test code = 2209) 9.3 MG/DL PROTEIN, TOTAL (test code = 2229) 6.6 G/DL ALBUMIN (test code = 2201) 4.3 G/DL CALC GLOBULIN (test code = 2240) 2.3 G/DL CALC A/G RATIO (test code = 2234) 1.9 RATIO BILIRUBIN, TOTAL (test code = 2207) 0.4 MG/DL ALKALINE PHOSPHATASE (test code = 2204) 63 U/L AST (test code = 2218) 60 U/L ALT (test code = 2219) 60 U/L LIPID [id number] 00:00:00* Test Item Value Reference Range Interpretation Comme nts CHOLESTEROL (test code = 2210) 171 MG/DL TRIGLYCERIDES (test code = 2232) 137 MG/DL HDL CHOLESTEROL (test code = 2220) 53 MG/DL CALC LDL CHOL (test code = 2237) 91 MG/DL RISK RATIO LDL/HDL (test cod e = 2238) 1.71 RATIO [id number] 00:00:00* Test Item Value Reference Range Interpretation Comme nts TSH (test code = 2821) 5.7 UIU/ML CBC W/AUTO [id number] 00:00:00* Test Item Value Reference Range Interpretation Comme nts WBC (test code = 1001) 9.1 K/UL RBC (test code = 1002) 4.65 M/UL HEMOGLOBIN (test code = 1003) 13.3 G/DL HEMATOCRIT (test code = 1004) 38.5 % MCV (test code = 1005) 82.8 fL MCH (test code = 1006) 28.6 PG MCHC (test code = 1007) 34.5 G/DL RDW (test code = 1038) 14.9 % NEUTROPHILS (test code = 1008) 63.4 % LYMPHOCYTES (test code = 1010) 27.9 % MONOCYTES (test code = 1011) 6.3 % EOSINOPHILS (test code = 1012) 2.1 % BASOPHILS (test code = 1013) 0.3 % PLATELET COUNT (test code = 1015) 250 K/UL Cosmo Martin EzequielHEMOGLOBIN [id number] 00:00:00* Test Item Value Reference Range Interpretation Comme nts HEMOGLOBIN A1c (test code = 11858) 7.1 % Cosmo Veronica EzequielCBC W/AUTO [id number] 00:00:00* Test Item Value Reference Range Interpretation Comme nts WBC (test code = 1001) 9.1 K/UL RBC (test code = 1002) 4.65 M/UL HEMOGLOBIN (test code = 1003) 13.3 G/DL HEMATOCRIT (test code = 1004) 38.5 % MCV (test code = 1005) 82.8 fL MCH (test code = 1006) 28.6 PG MCHC (test code = 1007) 34.5 G/DL RDW (test code = 1038) 14.9 % NEUTROPHILS (test code = 1008) 63.4 % LYMPHOCYTES (test code = 1010) 27.9 % MONOCYTES (test code = 1011) 6.3 % EOSINOPHILS (test code = 1012) 2.1 % BASOPHILS (test code = 1013) 0.3 % PLATELET COUNT (test code = 1015) 250 K/UL Cosmo NievesHEMOGLOBIN [id number] 00:00:00* Test Item Value Reference Range Interpretation Comme nts HEMOGLOBIN A1c (test code = 64773) 7.1 % Cosmo NievesCBC W/AUTO [id number] 00:00:00* Test Item Value Reference Range Interpretation Comme nts WBC (test code = 1001) 9.1 K/UL RBC (test code = 1002) 4.65 M/UL HEMOGLOBIN (test code = 1003) 13.3 G/DL HEMATOCRIT (test code = 1004) 38.5 % MCV (test code = 1005) 82.8 fL MCH (test code = 1006) 28.6 PG MCHC (test code = 1007) 34.5 G/DL RDW (test code = 1038) 14.9 % NEUTROPHILS (test code = 1008) 63.4 % LYMPHOCYTES (test code = 1010) 27.9 % MONOCYTES (test code = 1011) 6.3 % EOSINOPHILS (test code = 1012) 2.1 % BASOPHILS (test code = 1013) 0.3 % PLATELET COUNT (test code = 1015) 250 K/UL HEMOGLOBIN [id number] 00:00:00* Test Item Value Reference Range Interpretation Comme nts HEMOGLOBIN A1c (test code = 23282) 7.1 % CBC W/AUTO [id number] 00:00:00* Test Item Value Reference Range Interpretation Comme nts WBC (test code = 1001) 9.1 K/UL RBC (test code = 1002) 4.65 M/UL HEMOGLOBIN (test code = 1003) 13.3 G/DL HEMATOCRIT (test code = 1004) 38.5 % MCV (test code = 1005) 82.8 fL MCH (test code = 1006) 28.6 PG MCHC (test code = 1007) 34.5 G/DL RDW (test code = 1038) 14.9 % NEUTROPHILS (test code = 1008) 63.4 % LYMPHOCYTES (test code = 1010) 27.9 % MONOCYTES (test code = 1011) 6.3 % EOSINOPHILS (test code = 1012) 2.1 % BASOPHILS (test code = 1013) 0.3 % PLATELET COUNT (test code = 1015) 250 K/UL HEMOGLOBIN [id number] 00:00:00* Test Item Value Reference Range Interpretation Comme nts HEMOGLOBIN A1c (test code = 30347) 7.1 % ACUTE HEPATITIS [id number] 00:00:00* Test Item Value Reference Range Interpretation Comme nts HEPATITIS A IgM (test code = 97006) NON-REACTIVE HEPATITIS B CORE IgM (test c ode = 4644) NON-REACTIVE HEPATITIS B SURF AG (test co de = 2739) NON-REACTIVE HEPATITIS C ANTIBODY (test c ode = 4675) NON-REACTIVE INTERPRETATION HEPATITIS A: (test code = 2552) (NOTE) INTERPRETATION HEPATITIS B: (test code = 29518) (NOTE) INTERPRETATION HEPATITIS C: (test code = 02327) (NOTE) Cosmo NievesACUTE HEPATITIS [id number] 00:00:00* Test Item Value Reference Range Interpretation Comme nts HEPATITIS A IgM (test code = 56416) NON-REACTIVE HEPATITIS B CORE IgM (test c ode = 4644) NON-REACTIVE HEPATITIS B SURF AG (test co de = 2739) NON-REACTIVE HEPATITIS C ANTIBODY (test c ode = 4675) NON-REACTIVE INTERPRETATION HEPATITIS A: (test code = 2552) (NOTE) INTERPRETATION HEPATITIS B: (test code = 96657) (NOTE) INTERPRETATION HEPATITIS C: (test code = 32233) (NOTE) Cosmo NievesACUTE HEPATITIS [id number] 00:00:00* Test Item Value Reference Range Interpretation Comme nts HEPATITIS A IgM (test code = 02139) NON-REACTIVE HEPATITIS B CORE IgM (test c ode = 4644) NON-REACTIVE HEPATITIS B SURF AG (test co de = 2739) NON-REACTIVE HEPATITIS C ANTIBODY (test c ode = 4675) NON-REACTIVE INTERPRETATION HEPATITIS A: (test code = 2552) (NOTE) INTERPRETATION HEPATITIS B: (test code = 81922) (NOTE) INTERPRETATION HEPATITIS C: (test code = 19307) (NOTE) ACUTE HEPATITIS [id number] 00:00:00* Test Item Value Reference Range Interpretation Comme nts HEPATITIS A IgM (test code = 12646) NON-REACTIVE HEPATITIS B CORE IgM (test c ode = 4644) NON-REACTIVE HEPATITIS B SURF AG (test co de = 2739) NON-REACTIVE HEPATITIS C ANTIBODY (test c ode = 4689) NON-REACTIVE INTERPRETATION HEPATITIS A: (test code = 2552) (NOTE) INTERPRETATION HEPATITIS B: (test code = 49227) (NOTE) INTERPRETATION HEPATITIS C: (test code = 98039) (NOTE) LIPID [id number] 00:00:00* Test Item Value Reference Range Interpretation Comme nts CHOLESTEROL (test code = 2210) 212 MG/DL TRIGLYCERIDES (test code = 2232) 120 MG/DL HDL CHOLESTEROL (test code = 2220) 48 MG/DL CALC LDL CHOL (test code = 2237) 140 MG/DL RISK RATIO LDL/HDL (test cod e = 2238) 2.92 RATIO Cosmo F AustinCOMPREHENSIVE METABOLIC [id number] 00:00:00* Test Item Value Reference Range Interpretation Comme nts GLUCOSE (test code = 2217) 175 MG/DL BUN (test code = 2208) 7 MG/DL CREATININE (test code = 2214) 0.76 MG/DL eGFR AMER. (test cod e = 74857) 119 ML/MIN/1.73 eGFR NON- AMER. (test code = 74066) 102 ML/MIN/1.73 CALC BUN/CREAT (test code = 2235) 9 RATIO SODIUM (test code = 2231) 139 MEQ/L POTASSIUM (test code = 2228) 4.7 MEQ/L CHLORIDE (test code = 2215) 95 MEQ/L CARBON DIOXIDE (test code = 2206) 17 MEQ/L CALCIUM (test code = 2209) 9.7 MG/DL PROTEIN, TOTAL (test code = 2229) 6.8 G/DL ALBUMIN (test code = 2201) 4.2 G/DL CALC GLOBULIN (test code = 2240) 2.6 G/DL CALC A/G RATIO (test code = 2234) 1.6 RATIO BILIRUBIN, TOTAL (test code = 2207) 0.5 MG/DL ALKALINE PHOSPHATASE (test code = 2204) 86 U/L AST (test code = 2218) 53 U/L ALT (test code = 2219) 42 U/L Cosmo NievesLIPID [id number] 00:00:00* Test Item Value Reference Range Interpretation Comme nts CHOLESTEROL (test code = 2210) 212 MG/DL TRIGLYCERIDES (test code = 2232) 120 MG/DL HDL CHOLESTEROL (test code = 2220) 48 MG/DL CALC LDL CHOL (test code = 2237) 140 MG/DL RISK RATIO LDL/HDL (test cod e = 2238) 2.92 RATIO Cosmo Martin [place] ShadeCOMPREHENSIVE METABOLIC [id number] 00:00:00* Test Item Value Reference Range Interpretation Comme nts GLUCOSE (test code = 2217) 175 MG/DL BUN (test code = 2208) 7 MG/DL CREATININE (test code = 2214) 0.76 MG/DL eGFR AMER. (test cod e = 86012) 119 ML/MIN/1.73 eGFR NON- AMER. (test code = 62663) 102 ML/MIN/1.73 CALC BUN/CREAT (test code = 2235) 9 RATIO SODIUM (test code = 2231) 139 MEQ/L POTASSIUM (test code = 2228) 4.7 MEQ/L CHLORIDE (test code = 2215) 95 MEQ/L CARBON DIOXIDE (test code = 2206) 17 MEQ/L CALCIUM (test code = 2209) 9.7 MG/DL PROTEIN, TOTAL (test code = 2229) 6.8 G/DL ALBUMIN (test code = 2201) 4.2 G/DL CALC GLOBULIN (test code = 2240) 2.6 G/DL CALC A/G RATIO (test code = 2234) 1.6 RATIO BILIRUBIN, TOTAL (test code = 2207) 0.5 MG/DL ALKALINE PHOSPHATASE (test code = 2204) 86 U/L AST (test code = 2218) 53 U/L ALT (test code = 2219) 42 U/L Cosmo Martin AustinCOMPREHENSIVE METABOLIC [id number] 00:00:00* Test Item Value Reference Range Interpretation Comme nts GLUCOSE (test code = 2217) 175 MG/DL BUN (test code = 2208) 7 MG/DL CREATININE (test code = 2214) 0.76 MG/DL eGFR AMER. (test cod e = 71558) 119 ML/MIN/1.73 eGFR NON- AMER. (test code = 90677) 102 ML/MIN/1.73 CALC BUN/CREAT (test code = 2235) 9 RATIO SODIUM (test code = 2231) 139 MEQ/L POTASSIUM (test code = 2228) 4.7 MEQ/L CHLORIDE (test code = 2215) 95 MEQ/L CARBON DIOXIDE (test code = 2206) 17 MEQ/L CALCIUM (test code = 2209) 9.7 MG/DL PROTEIN, TOTAL (test code = 2229) 6.8 G/DL ALBUMIN (test code = 2201) 4.2 G/DL CALC GLOBULIN (test code = 2240) 2.6 G/DL CALC A/G RATIO (test code = 2234) 1.6 RATIO BILIRUBIN, TOTAL (test code = 2207) 0.5 MG/DL ALKALINE PHOSPHATASE (test code = 2204) 86 U/L AST (test code = 2218) 53 U/L ALT (test code = 2219) 42 U/L LIPID [id number] 00:00:00* Test Item Value Reference Range Interpretation Comme nts CHOLESTEROL (test code = 2210) 212 MG/DL TRIGLYCERIDES (test code = 2232) 120 MG/DL HDL CHOLESTEROL (test code = 2220) 48 MG/DL CALC LDL CHOL (test code = 2237) 140 MG/DL RISK RATIO LDL/HDL (test cod e = 2238) 2.92 RATIO COMPREHENSIVE METABOLIC [id number] 00:00:00* Test Item Value Reference Range Interpretation Comme nts GLUCOSE (test code = 2217) 175 MG/DL BUN (test code = 2208) 7 MG/DL CREATININE (test code = 2214) 0.76 MG/DL eGFR AMER. (test cod e = 16550) 119 ML/MIN/1.73 eGFR NON- AMER. (test code = 25325) 102 ML/MIN/1.73 CALC BUN/CREAT (test code = 2235) 9 RATIO SODIUM (test code = 2231) 139 MEQ/L POTASSIUM (test code = 2228) 4.7 MEQ/L CHLORIDE (test code = 2215) 95 MEQ/L CARBON DIOXIDE (test code = 2206) 17 MEQ/L CALCIUM (test code = 2209) 9.7 MG/DL PROTEIN, TOTAL (test code = 2229) 6.8 G/DL ALBUMIN (test code = 2201) 4.2 G/DL CALC GLOBULIN (test code = 2240) 2.6 G/DL CALC A/G RATIO (test code = 2234) 1.6 RATIO BILIRUBIN, TOTAL (test code = 2207) 0.5 MG/DL ALKALINE PHOSPHATASE (test code = 2204) 86 U/L AST (test code = 2218) 53 U/L ALT (test code = 2219) 42 U/L LIPID [id number] 00:00:00* Test Item Value Reference Range Interpretation Comme nts CHOLESTEROL (test code = 2210) 212 MG/DL TRIGLYCERIDES (test code = 2232) 120 MG/DL HDL CHOLESTEROL (test code = 2220) 48 MG/DL CALC LDL CHOL (test code = 2237) 140 MG/DL RISK RATIO LDL/HDL (test cod e = 2238) 2.92 RATIO [id number] 00:00:00* Test Item Value Reference Range Interpretation Comme nts TSH (test code = 2821) 4.7 UIU/ML Cosmo Martin [id number] 00:00:00* Test Item Value Reference Range Interpretation Comme nts TSH (test code = 2821) 4.7 UIU/ML Cosmo Martin [id number] 00:00:00* Test Item Value Reference Range Interpretation Comme nts TSH (test code = 2821) 4.7 UIU/ML [id number] 00:00:00* Test Item Value Reference Range Interpretation Comme nts TSH (test code = 2821) 4.7 UIU/ML CBC W/AUTO [id number] 00:00:00* Test Item Value Reference Range Interpretation Comme nts WBC (test code = 1001) 10.0 K/UL RBC (test code = 1002) 4.74 M/UL HEMOGLOBIN (test code = 1003) 13.2 G/DL HEMATOCRIT (test code = 1004) 39.9 % MCV (test code = 1005) 84.2 fL MCH (test code = 1006) 27.8 PG MCHC (test code = 1007) 33.1 G/DL RDW (test code = 1038) 14.6 % NEUTROPHILS (test code = 1008) 71 % LYMPHOCYTES (test code = 1010) 21 % MONOCYTES (test code = 1011) 6 % EOSINOPHILS (test code = 1012) 2 % PLATELET COUNT (test code = 1015) 255 K/UL Cosmo Martin AustinHEMOGLOBIN [id number] 00:00:00* Test Item Value Reference Range Interpretation Comme nts HEMOGLOBIN A1c (test code = 04772) 7.9 % Cosmo Martin AustinCBC W/AUTO [id number] 00:00:00* Test Item Value Reference Range Interpretation Comme nts WBC (test code = 1001) 10.0 K/UL RBC (test code = 1002) 4.74 M/UL HEMOGLOBIN (test code = 1003) 13.2 G/DL HEMATOCRIT (test code = 1004) 39.9 % MCV (test code = 1005) 84.2 fL MCH (test code = 1006) 27.8 PG MCHC (test code = 1007) 33.1 G/DL RDW (test code = 1038) 14.6 % NEUTROPHILS (test code = 1008) 71 % LYMPHOCYTES (test code = 1010) 21 % MONOCYTES (test code = 1011) 6 % EOSINOPHILS (test code = 1012) 2 % PLATELET COUNT (test code = 1015) 255 K/UL Cosmo Martin AustinHEMOGLOBIN [id number] 00:00:00* Test Item Value Reference Range Interpretation Comme nts HEMOGLOBIN A1c (test code = 82931) 7.9 % Cosmo Martin AustinCBC W/AUTO [id number] 00:00:00* Test Item Value Reference Range Interpretation Comme nts WBC (test code = 1001) 10.0 K/UL RBC (test code = 1002) 4.74 M/UL HEMOGLOBIN (test code = 1003) 13.2 G/DL HEMATOCRIT (test code = 1004) 39.9 % MCV (test code = 1005) 84.2 fL MCH (test code = 1006) 27.8 PG MCHC (test code = 1007) 33.1 G/DL RDW (test code = 1038) 14.6 % NEUTROPHILS (test code = 1008) 71 % LYMPHOCYTES (test code = 1010) 21 % MONOCYTES (test code = 1011) 6 % EOSINOPHILS (test code = 1012) 2 % BASOPHILS (test code = 1013) % PLATELET COUNT (test code = 1015) 255 K/UL HEMOGLOBIN [id number] 00:00:00* Test Item Value Reference Range Interpretation Comme nts HEMOGLOBIN A1c (test code = 04321) 7.9 % CBC W/AUTO [id number] 00:00:00* Test Item Value Reference Range Interpretation Comme nts WBC (test code = 1001) 10.0 K/UL RBC (test code = 1002) 4.74 M/UL HEMOGLOBIN (test code = 1003) 13.2 G/DL HEMATOCRIT (test code = 1004) 39.9 % MCV (test code = 1005) 84.2 fL MCH (test code = 1006) 27.8 PG MCHC (test code = 1007) 33.1 G/DL RDW (test code = 1038) 14.6 % NEUTROPHILS (test code = 1008) 71 % LYMPHOCYTES (test code = 1010) 21 % MONOCYTES (test code = 1011) 6 % EOSINOPHILS (test code = 1012) 2 % BASOPHILS (test code = 1013) % PLATELET COUNT (test code = 1015) 255 K/UL HEMOGLOBIN [id number] 00:00:00* Test Item Value Reference Range Interpretation Comme nts HEMOGLOBIN A1c (test code = 15623) 7.9 %"
[2024-08-03] MEDS ORDERED: DIAZEPAM 10 MG/2 ML INJ SYRINGE ONE (10:54)
[2024-08-03 11:23] LABS: Absolute Basophils 0.1 K/uL (0-0.5); Absolute Monocytes 0.4 K/uL (0.1-1.3); Absolute Neutrophil 10.8 K/uL (1.8-8.0); Basophils % 0.5 % (0-1.3); Eosinophils % 0.4 % (0-4.4); Hematocrit 39.1 % (36.0-45.0); Hemoglobin 12.3 g/dL (12.0-15.0); Lymphocytes % 8.3 % (15.3-44.8); MCH 25.6 pg (27.0-35.0); MCHC 31.4 g/dL (32.0-36.0); MCV 81.4 fL (80-100); Monocytes % 2.9 % (3.3-12.3); Neutrophils % 87.9 % (41.7-73.7); Platelets 238 thou/uL (152-406); Red Cell Distribution Width 17.5 % (12.1-15.2)
[2024-08-03 11:40] LABS: Albumin 3.2 g/dL (3.4-5.0); Albumin/Globulin Ratio 0.9 (1.1-1.8); Anion Gap 12.3 mEq/L (5.0-15.0); Bilirubin Total 0.7 mg/dL (0.2-1.0); Globulin 3.7 g/dL (2.3-3.5); Potassium 3.3 mEq/L (3.5-5.1); Protein, Total 6.9 g/dL (6.4-8.2)
[2024-08-03] MEDS ORDERED: KETAMINE HCL IN 0.9 % NACL 50 MG/5 ML SYRINGE IV ONE (12:00)
[2024-08-03] MEDS ORDERED: Magnesium Sulfate 2gm IVPB 2 G/50 ML BAG IV ONE (12:01)
[2024-08-03 12:17] LABS: Specific Gravity > 1.030 (1.005-1.030); Sqamous Epithelial <5 /HPF (None Seen); Urine Bacteria <20 /HPF (<20); Urine Bilirubin NEGATIVE (Negative); Urine Blood Negative (Negative); Urine Clarity Turbid (Clear); Urine Color Light-Yellow (Yellow); Urine Culture Reflex Order NOT NEEDED; Urine Glucose 1+ (Negative); Urine Ketones 4+ (Over) (Negative); Urine Microscopic Reflex YN ORDER UMIC; Urine Mucus Slight /HPF (None Seen); Urine Nitrite NEGATIVE (Negative); Urine Protein TRACE (Negative); Urine RBC <5 /HPF (None Seen); Urine Urobilinogen Normal (Normal); Urine WBC <5 /HPF (<5); Urine pH 6.5 (5.0-7.0)
[2024-08-03 12:20] LABS: Blood Morphology Comment NOT SEEN (NOT SEEN); Platelet Estimate ADEQ; White Blood Cell Scan OK (OK)
--- NOTE | 2024-08-03 13:22 | RAD REPORT ---
EXAMINATION: CT ABDOMEN AND PELVIS WITH CONTRAST CLINICAL INDICATION: Abdominal pain TECHNIQUE: CT abdomen and pelvis was performed, after the administration of 100 cc Isovue-300.. Sagit sirena and coronal reconstructions were obtained. One or more of the following dose reduction techniques were used: Automated exposure control, adjustment of the mA and kV according to patient si ze, and iterative reconstruction. Unless otherwise specified, incidental findings do not require dedicated imaging follow-up. [id number]. Oral contrast was not given which limits evaluation of bowel and appendix. COMPARISON: .2018 FINDINGS: Cholecystectomy 6 mm calculus lower pole left kidney. No hydronephrosis. Liver, spleen, pancreas, adrenals and kidneys appear unremarkable No evidence of diverticulitis. Small umbilical hernia No adnexal mass : IMPRESSION: Nonobstructing left renal calculus
--- NOTE | 2024-08-03 13:43 | ER ---
Nurse's Notes [facility] Name: Katherine Yepez Age: 43 yrs Sex: Female : 1980 Arrival Date: 08/03/2024 Time: 10:32 Bed 18 Private MD: Diagnosis: Hyperemesis Cannabinoid;Hypokalemia Presentation: 08/03 10:38 Chief complaint: EMS states: about 5 hours ago started with n/v fever, 10/10 pain in tm6 RLQ. Patient has history of gastroparesis, believes it is a flair up. Coronavirus screen: Client denies travel out of the [place] in the last 14 days. Ebola Screen: Patient negative for fever greater than or equal to 101.5 degrees Fahrenheit, and additional compatible Ebola Virus Disease symptoms Patient denies exposure to infectious person. Patient denies travel to an Ebola-affected area in the 21 days before illness onset. No symptoms or risks identified at this time. Initial Sepsis Screen: Does the patient meet any 2 criteria? No. Patient's initial sepsis screen is negative. Does the patient have a suspected source of infection? No. Patient's initial sepsis screen is negative. Risk Assessment: Do you want to hurt yourself or someone else? Patient reports no desire to harm self or others. Onset of symptoms was August 03, 2024 at 05:00. Care prior to arrival: Medication(s) given: 10mg reglan IVP, 1g ofirmev IVP. 10:38 Method Of Arrival: EMS: [facility] 6 10:38 Acuity: [facility] 3 tm6 Triage Assessment: 10:43 General: Appears distressed, Behavior is cooperative. Pain: Complains of pain in right tm6 lower quadrant Pain currently is 10 out of 10 on a pain scale. EENT: No signs and/or symptoms were reported regarding the EENT system. Neuro: Level of Consciousness is awake, alert, obeys commands, Oriented to person, place, time, situation. Cardiovascular: Patient's skin is warm and dry. Respiratory: Airway is patent Respiratory effort is even, unlabored, Respiratory pattern is regular, symmetrical. GI: Abdomen is obese, Reports lower abdominal pain, nausea, vomiting. : No signs and/or symptoms were reported regarding the genitourinary system. Derm: No signs and/or symptoms reported regarding the dermatologic system. Musculoskeletal: No signs and/or symptoms reported regarding the musculoskeletal system. Historical: - Allergies: 10:41 Prednisone; tm6 10:41 Zofran; tm6 10:41 Bactrim; tm6 10:41 Toradol; tm6 10:41 tramadol; tm6 10:41 GABAPENTIN; tm6 10:41 Ultracet; tm6 - PMHx: 10:41 Diabetes mellitus; Hypothyroidism; Hypertensive disorder; tm6 - Immunization history:: Flu vaccine is not up to date. - Infectious Disease History:: Denies. - Social history:: Smoking status: Patient reports the use of cigarette tobacco products, smokes one pack cigarettes per day. Reported history of juuling and/or vaping. Screenin:09 [facility] ED Fall Risk Assessment (Adult) History of falling in the last 3 months, bp including since admission No falls in past 3 months (0 pts) Confusion or Disorientation No (0 pts) Intoxicated or Sedated No (0 pts) Impaired Gait No (0 pts) Mobility Assist Device Used No (0 pt) Altered Elimination No (0 pt) Score/Fall Risk Level 0 - 2 = Low Risk Oriented to surroundings. Abuse screen: Denies threats or abuse. Denies injuries from another. Nutritional screening: No deficits noted. Tuberculosis screening: No symptoms or risk factors identified. Assessment: 10:45 General: Appears uncomfortable, obese, Behavior is cooperative, appropriate for age, bp anxious. Pain: Complains of pain in abdomen. Neuro: No deficits noted. Cardiovascular: No deficits noted. Respiratory: No deficits noted. GI: Bowel sounds present X 4 quads. Abd is soft X 4 quads. 14:09 Reassessment: Patient appears in no apparent distress at this time. Patient is alert, bp oriented x 3, equal unlabored respirations, skin warm/dry/pink. Vital Signs: 10:38 BP 170 / 80; Pulse 59; Resp 20; Temp 98.8(O); Pulse Ox 100% on R/A; MAP 100 mmHg; tm6 Weight 162.39 kg; Height 5 ft. 11 in. ; Pain 10/10; 13:35 BP 167 / 75; Pulse 59; Resp 16; Pulse Ox 99% ; bp 10:38 Body Mass Index 49.93 (162.39 kg, 180.34 cm) tm6 10:38 Pain Scale: Adult tm6 ED Course: 10:34 Patient arrived in ED. cc6 10:35 Omid Dunn MD is Attending Physician. ec2 10:41 Triage completed. tm6 10:43 Arm band placed on right wrist. tm6 10:50 EKG done, by ED staff, reviewed by Omid Dunn MD. Maintain EMS IV. Dressing intact. tm6 Good blood return noted. Site clean \T\ dry. Gauge \T\ site: 20g RAC. Flushed with 10 mL NS. 10:59 Patient has correct armband on for positive identification. Bed in low position. Call tm6 light in reach. Side rails up X2. Provided Education on: use of call cates. Client placed on continuous cardiac and pulse oximetry monitoring. NIBP monitoring applied. personnel monitor on. Pulse ox on. NIBP on. Door closed. Noise minimized. Lights dimmed. Warm blanket given. Pillow given. socks put on. 11:07 Celestino Reynolds, RN is Primary Nurse. bp 12:50 CT Abd/Pelvis - IV Contrast Only In Process Unspecified. EDMS 14:09 No provider procedures requiring assistance completed. IV discontinued, intact, bp bleeding controlled, No redness/swelling at site. Pressure dressing applied. Administered Medications: 10:59 Drug: Diazepam IVP 5 mg IVP once Route: IVP; Site: right antecubital; tm6 14:11 Follow up: Response: No adverse reaction bp 12:06 Drug: Ketamine IVP 10 mg IVP once Route: IVP; Site: right antecubital; bp 14:11 Follow up: Response: No adverse reaction bp 12:07 Drug: Magnesium Sulfate IVPB 2 grams IVPB once over 30 mins Route: IVPB; Infused Over: bp 30 mins; Site: right antecubital; 14:11 Follow up: IV Status: Completed infusion bp Medication: 14:09 VIS not applicable for this client. bp Outcome: 13:42 Discharge ordered by . ec2 14:09 Discharged to home ambulatory, bp 14:09 Condition: stable 14:09 Discharge instructions given to patient, Instructed on discharge instructions, follow up and referral plans. medication usage, Demonstrated understanding of instructions, follow-up care, medications, Prescriptions given X 1, 14:12 Patient left the ED. bp Signatures: Dispatcher [employer] EDCelestino Angeles, RN RN bp Omid Dunn MD MD ec2 Anne Hope RN RN tm6 Karlene Nettles cc6
--- NOTE | 2024-08-03 13:43 | EDPHYS ---
Physician Documentation [facility] Name: Katherine Yepez Age: 43 yrs Sex: Female : 1980 Arrival Date: 08/03/2024 Time: 10:32 Bed 18 Private MD: ED Physician Oimd Dunn HPI: 08/03 10:40 This 43 yrs old Female presents to ER via Unassigned with complaints of ec2 Abdominal Pain. 10:40 Patient with history of gastroparesis arrives today for evaluation of upper abdominal ec2 pain. Patient reports that she regularly uses CBD products, is having abdominal pain along with nausea and vomiting. Reports no urinary complaints, no cough or cold symptoms.. Historical: - Allergies: 10:41 Prednisone; tm6 10:41 Zofran; tm6 10:41 Bactrim; tm6 10:41 Toradol; tm6 10:41 tramadol; tm6 10:41 GABAPENTIN; tm6 10:41 Ultracet; tm6 - PMHx: 10:41 Diabetes mellitus; Hypothyroidism; Hypertensive disorder; tm6 - Immunization history:: Flu vaccine is not up to date. - Infectious Disease History:: Denies. - Social history:: Smoking status: Patient reports the use of cigarette tobacco products, smokes one pack cigarettes per day. Reported history of juuling and/or vaping. ROS: 10:40 Constitutional: as per hpi ec2 Exam: 10:40 Constitutional: GEN: NAD Head: atraumatic Eyes: EOMI Ears: External ears are ec2 normal. CV: regular rate LUNGS: no respiratory distress ABD: non-distended, soft, not guarding, not rigid SKIN: no evidence of rashes MSK: no evidence of trauma Vital Signs: 10:38 BP 170 / 80; Pulse 59; Resp 20; Temp 98.8(O); Pulse Ox 100% on R/A; MAP 100 mmHg; tm6 Weight 162.39 kg; Height 5 ft. 11 in. ; Pain 10/10; 13:35 BP 167 / 75; Pulse 59; Resp 16; Pulse Ox 99% ; bp 10:38 Body Mass Index 49.93 (162.39 kg, 180.34 cm) tm6 10:38 Pain Scale: Adult tm6 MDM: 10:35 Medical Screening Exam initiated ec2 10:40 Data reviewed: vital signs, nurses notes. ED course: Patient arrives today for ec2 evaluation of upper abdominal pain along with nausea and vomiting. Examination revealing for nontoxic individual otherwise in no acute distress. Will obtain lab work, CT imaging, and further assess. EMS reports that they given the patient Reglan prior to arrival. Differential diagnosis includes cannabinoid hyperemesis, ureteral stone, ulcer. 10:57 ED course: EKG independently reviewed and interpreted by me, shows normal sinus rhythm, ec2 rate of 62, no acute ST segment elevations, intervals are pertinent for QTc at 499. Will hold off on additional QTc prolonging agents at this time, will give the patient Valium for antiemetic.. 13:42 ED course: CT imaging with no acute intra-abdominal process. No infectious process ec2 identified, on reassessment patient is well-appearing no acute distress. Will discharge home, I discussed inpatient hospitalization and GI follow-up and ultimately will return to home. Return precautions given. Instructed to stop smoking marijuana.. 08/03 10:36 Order name: CBC with Diff; Complete Time: 12:33 ec2 08/03 10:36 Order name: CMP; Complete Time: 11:44 ec2 08/03 10:36 Order name: Lipase; Complete Time: 11:44 ec2 08/03 10:36 Order name: Test, Urine; Complete Time: 12:33 ec2 08/03 10:36 Order name: Urinalysis w/ reflexes; Complete Time: 12:33 ec2 08/03 11:28 Order name: CBC Smear Scan; Complete Time: 12:33 EDMS 08/03 10:36 Order name: CT Abd/Pelvis - IV Contrast Only; Complete Time: 13:28 ec2 08/03 10:36 Order name: IV Saline Lock; Complete Time: 11:42 ec2 08/03 10:36 Order name: Labs collected and sent; Complete Time: 11:42 ec2 08/03 10:36 Order name: EKG - Nurse/Tech; Complete Time: 10:50 ec2 Administered Medications: 10:59 Drug: Diazepam IVP 5 mg IVP once Route: IVP; Site: right antecubital; tm6 14:11 Follow up: Response: No adverse reaction bp 12:06 Drug: Ketamine IVP 10 mg IVP once Route: IVP; Site: right antecubital; bp 14:11 Follow up: Response: No adverse reaction bp 12:07 Drug: Magnesium Sulfate IVPB 2 grams IVPB once over 30 mins Route: IVPB; Infused Over: bp 30 mins; Site: right antecubital; 14:11 Follow up: IV Status: Completed infusion bp Disposition Summary: 08/03/24 13:42 Discharge Ordered Notes: You should stop smoking weed and weed products
Location: Home ec2 Condition: Stable ec2 Diagnosis - Hyperemesis Cannabinoid ec2 - Hypokalemia ec2 Followup: ec2 - With: Private Physician - When: - Reason: Re-evaluation by your physician Discharge Instructions: - Discharge Summary Sheet ec2 - Cannabinoid Hyperemesis Syndrome ec2 Forms: - Medication Reconciliation Form ec2 - Antibiotic Education ec2 - Prescription Opioid Use ec2 - Patient Portal Instructions ec2 - Leadership Thank You Letter ec2 Prescriptions: - Reglan 10 mg Oral Tablet - take 1 tablet ORAL route every 6 hours take 30 minutes before meals and at ec2 bedtime; 20 tablet; Refills: 0, Product Selection Permitted Signatures: Dispatcher [employer] Celestino Negrete, RN RN Omid Dunn MD MD ec2 Anne Hope RN RN tm6
[2024-08-03 14:27] VITALS: TEMP 98.8
[2024-08-03 14:37] VITALS: BP 167/75; O2SAT 99
--- NOTE | 2024-08-07 11:11 | EKG ---
Test Date: 2024-08-03 Test Time: 10:47:30 [place]ond Scaler: DERRICK MEASUREMENT RESULTS: Intervals: Rate: 62 ID: [id number] QRSD: 110 QT: 492 QTc: 499 [place]: P: 50 ID: [id number] QRS: -26 T: 0 INTERPRETIVE STATEMENTS: Normal sinus rhythm Normal ECG No previous ECG available for comparison Electronically Signed On 08-07-24 11:08:02 SECURITIES UNDERWRITER by Simon Peck
== END 2024-08-03 14:12 | disposition home or self-care (01) ==
LOC: ER 10:32
DX: R11.2 Nausea with vomiting, unspecified (principal); E87.6 Hypokalemia; E11.9 Type 2 diabetes mellitus without complications; I10 Essential (primary) hypertension; E03.9 Hypothyroidism, unspecified; F17.210 Nicotine dependence, cigarettes, uncomplicated; Z88.1 Allergy status to other antibiotic agents; Z88.8 Allergy status to other drugs, medicaments and biological substances
CPT/HCPCS: 96365; 85025; 81001; 36415; 81025; 83690; 80053; 74177; 96375; 99285; 96366; Q9967; J3475; J3360; 93005

== ENCOUNTER 2024-10-21 11:27 | Observation (INO) | payer OTHER ==
--- OUTSIDE RECORDS SUMMARY | 2024-10-21 11:40 | XMS REPORT | Continuity of Care Document ---
Author Name Unknown Address [address] [facility] [address] [place] [address] [facility] Address [address] [facility] [place]. [address] [place] [address] Care Team Providers Care Mother Repairer Name Role Phone COSMO [facility] Care Physician Unavailable KATHLEEN WILD Attending Clinician Unavailable ANGÉLICA DIGGS Attending Clinician Unavailable DALLAS AGUILRA Attending Clinician Unavailable Doctor Unassigned, [place] Attending Clinician U VERN King Attending Clinician Vern Fernando MD Attending Clinician [phone] Gris Gruber Attending Clinician GRIS SANCHEZ Attending Clinician Unavailable BRISSA BETANCUR Attending Clinician Unavailable POLO PATTERSON Attending Clinician Unavailable KATHLEEN WILD Admitting Clinician Unavailable BRISSA AGUILAR Admitting Clinician Unavailable VERN SEVERINO Admitting Clinician Rosario varela Payers Payer Name Policy Type Policy Number Effective Date Expirati on Date Source ADRI O [id number] 2021 00:00:00 Problems Condition Name Condition Details Condition Category Status Onset Date Resolution Date Last Treatment Date Treating Clinician Comments Source No known active problems No known active problems Disease [facility] Allergies, Adverse Reactions, Alerts Allergy Name Allergy Type Status Severity Reaction(s) Onset Date Inactive Date Treating Clinician Comments Source predniso ne Propensi ty to adverse reaction to drug Active 27 00:00: 00 Cosmo Nieves GABAPENT IN DRUG INGREDI Active High Other-Cmnt 3-19 00:00: 00 [facility] TRAMADOL DRUG INGREDI Active High Other-Cmnt 3-19 00:00: 00 [facility] Gabapent in - Oral Propensi ty to adverse reaction to drug Active 1-07 00:00: 00 Cosmo Nieves n Propensi ty to adverse reaction to drug Active 6-30 00:00: 00 Cosmo Nieves Bactrim - Oral Propensi ty to adverse reaction to drug Active 3-18 00:00: 00 Cosmo Nieves Sulfamet hoxazole -Trimeth oprim Propensi ty to adverse reaction s Active Swelling 2020-08 0 00:00: 00 [facility] Predniso ne Propensi ty to adverse reaction s Active Rash 2020-08 0-27 00:00: 00 [facility] Ketorola c Propensi ty to adverse reaction s Active Other - See comments 2020-08 0- 00:00: 00 zachary [facility] Ondanset fabiano Hcl Propensi ty to adverse reaction s Active Hives 2020-08 0-27 00:00: 00 [facility] SULFAMET HOXAZOLE -TRIMETH OPRIM DRUG Active Swelling 2020-08 0 00:00: 00 [facility] PREDNISO NE DRUG INGREDI Active Rash 2020-08 0 00:00: 00 [facility] KETOROLA C DRUG INGREDI Active Other-Cmnt 2020-08 0 00:00: 00 [facility] ONDANSET FABIANO HCL DRUG INGREDI Active Hives 2020-08 0 00:00: 00 [facility] Glimepir michelle Propensi ty to adverse reaction to drug Inactiv e 09-29 00:00: 00 Cosmo Nieves Zofran (ondanse andrea hcl) (Not Checked) Propensi ty to adverse reaction to drug Inactiv e 01-24 00:00: 00 Cosmo Veronica Nieves NO KNOWN ALLERGIE S Drug Class Active [facility] Social History Social Habit Start Date Stop Date Quantity Comments Source [facility] to SARS-CoV-2 (event) 2022-05-29 00:00:00 2022-06-08 12:00:00 Not sure [facility] Sex Assigned At 1980 00:00:00 1980 00:00:00 [facility] Smoking Status Start Date Stop Date Source Tobacco smoking consumption unknown [facility] Medications Ordered Medication Name Filled Medication Name Start Date Stop Date Current Medication? Ordering Clinician Indication Dosage Frequency Signature (SIG) Comments Components Source Januvia 100 mg tablet 2023-08 00:00: 00 Yes mg Cosmo Veronica Nieves albuterol sulfate HFA 90 mcg/actuati on aerosol inhaler 2023-08 00:00: 00 Yes 12mcg/a ctuatio n Cosmo Veronica Nieves Bromfed DM 2 mg-30 mg-10 mg/5 mL oral syrup 2023-08 00:00: 00 Yes 10mg/5 mL Cosmo Veronica Nieves metformin 1,000 mg tablet 2023-08 00:00: 00 Yes 1mg Cosmo Veronica Nieves metoprolol tartrate 100 mg tablet 2023-08 00:00: 00 Yes mg Cosmo Veronica Nieves tizanidine 4 mg tablet 2023-08 00:00: 00 Yes mg Cosmo Nieves glipizide 10 mg tablet 2023-08- 00:00: 00 Yes mg Cosmo Nieves hydrochloro thiazide 25 mg tablet 2023-08- 00:00: 00 Yes mg Cosmo Nieves Januvia 100 mg tablet 2023-08- 00:00: 00 Yes mg Cosmo Nieves atorvastati n 20 mg tablet 2023-08 00:00: 00 Yes 1mg Cosmo Nieves metformin 1,000 mg tablet 2023-08 00:00: 00 [...] Cosmo Nieves buspirone 5 mg tablet 2023-08 00:00: 00 Yes 1mg Cosmo Nieves metoprolol tartrate 100 mg tablet 2023-08 0- 00:00: 00 Yes mg Cosmo Nieves glipizide 10 mg tablet 2023-08 0- 00:00: 00 Yes mg Cosmo Nieves Januvia 100 mg tablet 2023-08-18 00:00: 00 Yes mg Cosmo Nieves metformin 1,000 mg tablet 02-09 00:00: 00 Yes 1mg Cosmo Nieves metoprolol tartrate 100 mg tablet 02-09 00:00: 00 Yes mg Cosmo Nieves tizanidine 4 mg tablet 02-09 00:00: 00 Yes mg Cosmo Nieves glipizide 10 mg tablet 02-09 00:00: 00 Yes mg Cosmo Nieves hydrochloro thiazide 25 mg tablet - 00:00: 00 Yes mg Cosmo Nieves Januvia 100 mg tablet 0 - 00:00: 00 Yes mg Cosmo Nieves levothyroxi ne 75 mcg tablet 0 02-09 00:00: 00 Yes mcg Cosmo Nieves Januvia 100 mg tablet 6- 00:00: 00 Yes mg Cosmo Nieves metoprolol tartrate 100 mg tablet - 00:00: 00 Yes mg Cosmo Nieves tizanidine 4 mg tablet 01-12 00:00: 00 Yes mg Cosmo Nieves glipizide 10 mg tablet 01-12 00:00: 00 Yes mg Cosmo Nieves levothyroxi ne 75 mcg tablet 01-12 00:00: 00 Yes mcg Cosmo Nieves metformin 1,000 mg tablet 5- 00:00: 00 Yes mg Cosmo Nieves CEPHALEXIN 500 MG 4-15 00:00: 00 Yes Cosmo Nieves HYDROCODONE -ACETAMIN 7.5-325 4-02 00:00: 00 Yes Cosmo Nieves AZITHROMYCI N 250 MG 3-05 00:00: 00 Yes Cosmo Nieves PROMETHAZIN E-DM 6.25-15 MG/5ML 3-05 00:00: 00 Yes Cosmo Nieves METOCLOPRAM MICHELLE 5 MG 2-26 00:00: 00 Yes Cosmo Nieves CEPHALEXIN [...] Cosmo Nieves TAKE 1 TABLET DAILY. 0 1-10 00:00: 00 Yes 25 Cosmo Nieves TAKE 1 TABLET BY MOUTH DAILY 0 1-10 00:00: 00 Yes 75 Cosmo Nieves TAKE 1 TABLET BY MOUTH TWICE DAILY 1- 00:00: 00 Yes 100 Cosmo Nieves TAKE 1 TABLET EVERY 8 HOURS NEEDED FOR MUSCLE SPASM. 1- 00:00: 00 Yes 4 Cosmo Nieves TAKE 1 TABLET DAILY. 1- 00:00: 00 Yes 100 Cosmo Nieves TAKE 1 TABLET BY MOUTH EVERY 6 HOURS NEEDED FOR PAIN 1- 00:00: 00 Yes Cosmo Nieves TAKE 1 TABLET BY MOUTH TWICE DAILY 1-04 00:00: 00 12-27 00:00 :00 No 1000 Cosmo Nieves TAKE 1 TABLET BY MOUTH TWICE DAILY - 00:00: 00 12-27 00:00 :00 No 10 Cosmo Nieves TAKE 1 TABLET BY MOUTH TWICE DAILY 2022-08 2 00:00: 00 Yes Cosmo Nieves TAKE 1 TABLET BY MOUTH TWICE DAILY 2022-08 2 00:00: 00 Yes 10 Cosmo Nieves TAKE 1 CAPSULE BY MOUTH EVERY 12 HOURS FOR 10 DAYS 2022-08 2 00:00: 00 Yes Cosmo Nieves HYDROCODONE -ACETAMIN 7.5-325 2022-08 0-31 00:00: 00 Yes Cosmo Nieves LEVOTHYROXI NE 75 MCG 2022-08 0-11 00:00: 00 Yes 75 Cosmo Nieves TAKE 1 TABLET BY MOUTH ONCE DAILY 2022-08 0-11 00:00: 00 12-27 00:00 :00 No 10 Cosmo Nieves TAKE 1 TABLET DAILY. 2022-08 011 00:00: 00 12-27 00:00 :00 No 20 Cosmo Nieves TAKE 1 TABLET BY MOUTH TWICE DAILY 2022-08 0-06 00:00: 00 12-27 00:00 :00 No 1000 Cosmo Nieves TAKE 1 TABLET BY MOUTH TWICE DAILY 2022-08 0-06 00:00: 00 12-27 00:00 :00 No 10 Cosmo Nieves TAKE 1 TABLET BY MOUTH DAILY 2022-08 0-06 00:00: 00 12-27 00:00 :00 No 75 Cosmo Nieves LEVOTHYROXI NE 75 MCG 2023-0 9-10 00:00: 00 Yes 75 Cosmo Nieves HYDROCODONE -ACETAMIN 10-325 MG 0 9-06 00:00: 00 Yes Cosmo Nieves TAKE 1 TABLET BY MOUTH EVERY 4 TO 6 HOURS FOR 7 DAYS NEEDED 0 8-29 00:00: 00 Yes Cosmo Nieves TAKE 1 TABLET BY MOUTH TWICE DAILY 0 8-15 00:00: 00 Yes Cosmo Nieves TAKE 1 TABLET BY MOUTH TWICE DAILY 0 8-15 00:00: 00 Yes Cosmo Nieves TIZANIDINE HCL 4 MG 0 8-15 00:00: 00 Yes Cosmo Nieves JANUVIA 100 MG 0 8-15 00:00: 00 Yes Cosmo Nieves TAKE 1 TABLET BY MOUTH TWICE DAILY 0 8-15 00:00: 00 12-27 00:00 :00 No 10 Cosmo Nieves TAKE 1 TABLET BY MOUTH DAILY 0 8-15 00:00: 00 12-27 00:00 :00 No 75 Cosmo Nieves TAKE 1 TABLET DAILY. 0 8-15 00:00: 00 12-27 00:00 :00 No 25 Cosmo Nieves APPLY TO WOUNDS 5 MINS BEFORE WOUND CARE DIRECTED 0 7-18 00:00: 00 Yes Cosmo Nieves TAKE 1 TABLET BY MOUTH DAILY 0 7-10 00:00: 00 Yes Cosmo Nieves METOPROLOL TARTRATE 100 MG 0 7-10 00:00: 00 Yes Cosmo Nieves METFORMIN HCL 1,000 MG 0 7-10 00:00: 00 Yes Cosmo Nieves TAKE 1 TABLET BY MOUTH TWICE DAILY 0 7-10 00:00: 00 12-27 00:00 :00 No 10 Cosmo Nieves HYDROCODONE -ACETAMIN 10-325 MG 0 7-03 00:00: 00 Yes [id number] Cosmo Nieves APPLY A NICKEL THICK LAYER TO WOUND EDGE TO EDGE ONCE A DAY 0 6-20 00:00: 00 Yes Cosmo Nieves TAKE 1 TABLET BY MOUTH TWICE DAILY 0 6-05 00:00: 00 Yes Cosmo Nieves SODIUM CHLORIDE 0.9% IRRIG. 2023-0 6-02 00:00: 00 Yes Cosmo Nieves TAKE ONE CAPSULE BY MOUTH EVERY DAY FOR 7 DAYS 6- 00:00: 00 Yes Cosmo Nieves APLY THIN LAYER TO WOUND EVERY DAY DIRECTED -15 00:00: 00 Yes Cosmo Nieves APPLY TO WOUNDS 5 MINS BEFORE WOUND CARE DIRECTED -15 00:00: 00 Yes Cosmo Nieves CEPHALEXIN 500 MG CAPSULE -15 00:00: 00 Yes Cosmo Nieves SILVER SULFADIAZIN E 1% CREAM -04 00:00: 00 Yes Cosmo Nieves HYDROCODONE -ACETAMIN 10-325 MG - 00:00: 00 Yes Cosmo Nieves CEPHALEXIN 500 MG CAPSULE - 00:00: 00 Yes Cosmo Nieves TAKE 1 TABLET BY MOUTH EVERY 4 TO 6 HOURS FOR 7 DAYS NEEDED - 00:00: 00 Yes Cosmo Nieves HYDROCODONE -ACETAMIN 10-325 MG -12 00:00: 00 Yes Cosmo Nieves METFORMIN HCL 1,000 MG -08 00:00: 00 Yes Cosmo Nieves LEVOTHYROXI NE 75 MCG -07 00:00: 00 Yes Cosmo Nieves TIZANIDINE HCL 4 MG -07 00:00: 00 Yes Cosmo Nieves TAKE 1 TABLET TWICE DAILY. 08-22 00:00: 00 12-27 00:00 :00 No 100 Cosmo Nieves TAKE 1 TABLET DAILY. - 00:00: 00 12-27 00:00 :00 No 25 Cosmo Nieves TAKE 1 TABLET DAILY. - 00:00: 00 12-27 00:00 :00 No 100 Cosmo Nieves TAKE 1 TABLET BY MOUTH TWICE A DAY - 00:00: 00 12-27 00:00 :00 No 10 Cosmo Nieves TAKE 1 TABLET DAILY. 2021-08 2-20 00:00: 00 No TAKE 1 TABLET DAILY. 2021-08 2-20 00:00: 00 2024- 05-14 00:00 :00 No 25 Cosmo Nieves ACETAMINOPH EN-COD #3 2021-08 00:00: 00 Yes [id number] Cosmo Nieves TAKE 1 TABLET BY MOUTH DAILY 04-14 00:00: 00 Yes Cosmo Nieves TAKE 1 TABLET BY MOUTH DAILY 04-14 00:00: 00 No TIZANIDINE HCL 4 MG TABLET 0 04-10 00:00: 00 Yes Cosmo Nieves TIZANIDINE HCL 4 MG TABLET 04-10 00:00: 00 No METFORMIN HCL 1,000 MG 04-08 00:00: 00 Yes 1000 Cosmo Nieves TAKE 1 TABLET BY MOUTH DAILY 04-08 00:00: 00 Yes Cosmo Nieves METOPROLOL TARTRATE 100 MG 04-08 00:00: 00 Yes 100 Cosmo Nieves TAKE 1 TABLET BY MOUTH TWICE DAILY 0 04-08 00:00: 00 Yes Cosmo Nieves TAKE 1 TABLET BY MOUTH DAILY 04-08 00:00: 00 Yes Cosmo Nieves &lt 0 03-10 00:00: 00 Yes 4 Cosmo Nieves TAKE 1 TABLET BY MOUTH EVERY DAY 0 03-10 00:00: 00 Yes 750 Cosmo Nieves TAKE 1 TABLET BY MOUTH DAILY 0 03-10 00:00: 00 Yes 75 Cosmo Nieves &lt 0 03-10 00:00: 00 No 4 TAKE 1 TABLET BY MOUTH EVERY DAY 0 03-10 00:00: 00 No 750 TAKE 1 TABLET BY MOUTH DAILY 0 03-10 00:00: 00 No 75 &lt 0 03-10 00:00: 00 No 4 TAKE 1 TABLET BY MOUTH EVERY DAY 0 03-10 00:00: 00 No 750 TAKE 1 TABLET BY MOUTH DAILY 0 03-10 00:00: 00 No 75 TAKE 1 TABLET BY MOUTH TWICE DAILY 0 03-06 00:00: 00 Yes 10 Cosmo Nieves TAKE 1 TABLET BY MOUTH TWICE DAILY 0 03-06 00:00: 00 No 10 TAKE 1 TABLET BY MOUTH TWICE DAILY 0 03-06 00:00: 00 No 10 Januvia 100 mg tablet 18 00:00: 00 Yes 1mg Cosmo Nieves TAKE 1 TABLET DAILY. 18 00:00: 00 Yes Cosmo Nieves metoprolol tartrate 100 mg tablet 10-31 00:00: 00 Yes 1mg Cosmo Nieves metformin 1,000 mg tablet 18 00:00: 00 Yes 1mg Cosmo Nieves glipizide 10 mg tablet 10-31 00:00: 00 Yes 1mg Cosmo Nieves tizanidine 4 mg tablet 10-31 00:00: 00 Yes 1mg Cosmo Nieves levothyroxi ne 75 mcg tablet 10-31 00:00: 00 Yes 1mcg Cosmo Nieves Dose Unknown 10-31 00:00: 00 Yes Cosmo Nieves Januvia 100 mg tablet 10-31 00:00: 00 No 1mg hydrochloro thiazide 25 mg tablet 10-31 00:00: 00 No 1mg metoprolol tartrate 100 mg tablet 10-31 00:00: [...] 00 No 1mg metformin 1,000 mg tablet 18 00:00: 00 No 1mg glipizide 10 mg tablet 18 00:00: 00 No 1mg tizanidine 4 mg tablet 18 00:00: 00 No 1mg levothyroxi ne 75 mcg tablet 10-31 00:00: 00 No 1mcg Dose Unknown 3-18 00:00: 00 No LEUCOVORIN CALCIUM 5 MG 2- 00:00: 00 Yes 5 Cosmo Nieves TAKE 6 TABLETS BY MOUTH 1 TIME A WEEK 2- 00:00: 00 Yes Cosmo Nieves amoxicillin 500 mg tablet 1- 00:00: 00 Yes 1mg Cosmo Nieves amoxicillin 500 mg tablet - 00:00: 00 No 1mg amoxicillin 500 mg tablet 09-05 00:00: 00 No 1mg levofloxaci n 750 mg tablet 1- 00:00: 00 Yes 1mg Cosmo Nieves levofloxaci n 750 mg tablet - 00:00: 00 No 1mg levofloxaci n 750 mg tablet - 00:00: 00 No 1mg Januvia 100 mg tablet 2020-08 2- 00:00: 00 Yes 1mg Cosmo Nieves TAKE 1 TABLET DAILY. 2020-08 2- 00:00: 00 Yes Cosmo Nieves metoprolol tartrate 100 mg tablet 2020-08 2- 00:00: 00 Yes 1mg Cosmo Nieves metformin 1,000 mg tablet 2020-08 2- 00:00: 00 Yes 1mg Cosmo Nieves glipizide 10 mg tablet 2020-08 2- 00:00: 00 Yes 1mg Cosmo Nieves tizanidine 4 mg tablet 2020-08 2- 00:00: 00 Yes 1mg Cosmo Nieves levothyroxi ne 75 mcg tablet 2020-08- 00:00: 00 Yes 1mcg Cosmo Nieves Januvia [...] tablet 2020-08 2 00:00: 00 No 1mcg Januvia 100 mg tablet 2020-08 00:00: 00 No 1mg TAKE 1 TABLET DAILY. 2020-08 2 00:00: 00 No metoprolol tartrate 100 mg tablet 2020-08 2 00:00: 00 No 1mg metformin 1,000 mg tablet 2020-08 2 00:00: 00 No 1mg glipizide 10 mg tablet 2020-08 00:00: 00 No 1mg tizanidine 4 mg tablet 2020-08 00:00: 00 No 1mg levothyroxi ne 75 mcg tablet 2020-08 00:00: 00 No 1mcg TAKE 1 TABLET [...] 2020-08 18:30: 00 07-04 14:20 :00 No [id number] 1mCi 1 millicurie , Oral, ONCE, 1 dose, On Wed07/04/21 at 1230, Routine [facility] NaCl 0.9% (NS) bolus infusion 1,000 mL 2020-08 18:30: 00 06-11 18:21 :00 No 1000mL at 999 mL/hr, 1,000 mL, IV Infusion, ONCE, 1 dose, On Wed06/11/21 at 1330, STAT [facility] morpHINE injection 4 mg 2020-08 18:15: 00 06-11 17:17 :00 No 4mg 4 mg, Slow IV Push, ONCE, 1 dose, On Wed06/11/21 at 1315, STAT [facility] proMETHazin e (PHENERGAN) 25 mg in NaCl 0.9% (NS) 50 mL piggyback 2020-08 17:30: 00 06-11 17:30 :00 No 25mg 25 mg, IV Piggyback, ONCE, 1 dose, On Wed06/11/21 at 1230, 50 mL [facility] metoclopram michelle HCl (REGLAN) injection 10 mg 2020-08 16:45: 00 06-11 15:39 :00 No 10mg 10 mg, Slow IV Push, ONCE, 1 dose, On Wed06/11/21 at 1145, ALIREZA [facility] No known medications 2020-08 10:18: 39 No [facility] Januvia 100 mg tablet 2020-08 00:00: 00 Yes 1mg Cosmo Nieves Januvia 100 mg tablet 2020-08 0 00:00: 00 No 1mg Januvia 100 mg [...] mcg tablet 04-14 00:00: 00 Yes 1mcg Cosmo Nieves TAKE 1 TABLET DAILY. 04-14 00:00: [...] mcg tablet 04-14 00:00: 00 No 1mcg tizanidine 4 mg tablet 01-09 00:00: 00 [...] tablet 01-09 00:00: 00 No 1mg metformin 500 mg tablet 10-02 00:00: 00 No 1mg hydrochloro thiazide 25 mg tablet 10-02 00:00: 00 No 1mg metoprolol tartrate 100 mg tablet 2-17 00:00: 00 No 1mg metformin 1,000 mg tablet 2 00:00: 00 No 1mg glipizide 10 mg tablet 2 00:00: 00 No 1mg tizanidine 4 mg [...] 1mcg Cosmo Nieves metformin 500 mg tablet 2019-08 00:00: 00 No 1mg metformin 500 mg tablet 2019-08 00:00: 00 No 1mg metformin 500 mg tablet 2019-08 00:00: 00 Yes 1mg Cosmo Nieves levothyroxi ne 75 mcg tablet 2019-08 00:00: 00 No 1mcg levothyroxi ne 75 mcg tablet 2019-08 00:00: 00 No 1mcg levothyroxi ne 75 mcg tablet 2019-08 00:00: 00 Yes 1mcg Cosmo Nieves hydrochloro [...] 03-29 00:00: 00 Yes 1mcg Cosmo Nieves metoprolol tartrate 50 mg tablet 02-22 00:00: 00 No 2mg metoprolol tartrate 50 mg tablet 02-22 00:00: 00 No 2mg metoprolol tartrate 50 mg tablet 02-22 00:00: 00 Yes 2mg Cosmo Nieves metformin 1,000 mg tablet 16 00:00: 00 No 1mg levothyroxi ne 75 mcg tablet 01-29 00:00: 00 No 1mcg metformin 1,000 mg tablet 01-29 00:00: 00 No 1mg levothyroxi ne 75 mcg tablet 01-29 00:00: 00 No 1mcg metformin 1,000 mg tablet 01-29 00:00: 00 Yes 1mg Cosmo Nieves levothyroxi ne 75 mcg tablet 01-29 00:00: 00 Yes 1mcg Cosmo Nieves hydrochloro thiazide 25 mg tablet 12-31 00:00: 00 No 1mg metoprolol tartrate 50 mg tablet 12-31 00:00: 00 No 1mg tizanidine 4 mg tablet 12-31 00:00: 00 No 1mg hydrochloro thiazide 25 mg tablet 12-31 00:00: 00 No 1mg metoprolol tartrate 50 mg tablet 12-31 00:00: 00 No 1mg tizanidine 4 mg tablet 12-31 00:00: 00 No 1mg hydrochloro thiazide 25 mg tablet 12-31 00:00: 00 Yes 1mg Cosmo Nieves metoprolol tartrate 50 mg tablet 12-31 00:00: 00 Yes 1mg Cosmo Nieves tizanidine 4 mg tablet 12-31 00:00: 00 Yes 1mg Cosmo Nieves levothyroxi ne 75 mcg tablet 2018-08 00:00: 00 No 1mcg levothyroxi ne 75 mcg tablet 2018-08 00:00: 00 No 1mcg levothyroxi ne 75 mcg tablet 2018-08 00:00: 00 Yes 1mcg Cosmo Nieves hydrochloro [...] ointment 2018-08 00:00: 00 Yes 1% Cosmo Veronica Nieves metoprolol succ 50 mg-hydrochl orothiazide 12.5 mg tablet,ext. rel 24 hr 2018-08 00:00: 00 Yes 1mg Cosmo Veronica Nieves glipizide 10 mg tablet 2018-08 00:00: 00 Yes 1mg Cosmo F Ezequiel metformin 1,000 mg tablet 2018-08 00:00: 00 Yes 1mg Cosmo Veronica Nieves tizanidine 4 mg tablet 2018-08 00:00: 00 Yes 1mg Cosmo F Ezequiel omeprazole 20 mg capsule,del ayed release 2018-08 00:00: 00 Yes 1mg Cosmo F Ezequiel Tessalon Perles 100 mg capsule 2018-08 00:00: 00 Yes 1mg Cosmo F Ezequiel tizanidine 4 mg tablet 04-21 00:00: 00 No 1mg tizanidine 4 mg tablet 04-21 00:00: 00 No 1mg tizanidine 4 mg tablet 04-21 00:00: 00 Yes 1mg Cosmo Nieves levothyroxi [...] 11-12 00:00: 00 Yes 1mg Cosmo Nieves lisinopril [...] 11-11 00:00: 00 Yes 1mg Cosmo Nieves glipizide 10 mg tablet 11-11 00:00: 00 Yes 1mg Cosmo Nieves levothyroxi ne 75 mcg tablet 2017-08 00:00: 00 No 1mcg levothyroxi ne 75 mcg tablet 2017-08 00:00: 00 No 1mcg levothyroxi ne 75 mcg tablet 2017-08 00:00: 00 Yes 1mcg Cosmo Nieves glipizide 5 mg tablet 05-14 [...] No 1mcg levothyroxi ne 75 mcg tablet 16 00:00: 00 Yes 1mcg Cosmo Nieves lisinopril [...] 1mg Cosmo Nieves glipizide 5 mg tablet 10-21 00:00: 00 [...] Name Observation Time Observation Value Comments S ource Systolic blood pressure 2021-06-11 18:27:00 155 mm[Hg] [place] [facility] Diastolic blood pressure 2021-06-11 18:27:00 85 mm[Hg] [place] [facility] Heart rate 2021-06-11 18:27:00 62 /[facility] Res[facility] rate 2021-06-11 18:27:00 18 /min [facility] Oxygen saturation in Arterial blood by Pulse oximetry 2021-06-11 18:27:00 100 /min [facility] Body temperature 2021-06-11 14:37:00 36.33 Gabriella [facility] Body height 2021-06-11 14:37:00 180.3 cm [facility] Body weight 2021-06-11 14:37:00 176.903 kg [facility] BMI 2021-06-11 14:37:00 54.39 kg/m2 [facility] BP Systolic 2024-08-08 08:49:00 148 mm[Hg] Step hen F Ezequiel BP Diastolic 2024-08-08 08:49:00 97 mm[Hg] Gregoiro phen F Ezequiel Weight Measured 2024-08-08 08:49:00 349.20 pounds Cosmo Nieves Height Measured 2024-08-08 08:49:00 70.00 inches Cosmo Nieves Body Temperature 2024-08-08 08:49:00 101.50 degrees Cosmo F Ezequiel Heart Rate 2024-08-08 08:49:00 89.00 /min Anabela en F Ezequiel Respiratory Rate 2024-08-08 08:49:00 18.00 /min Cosmo F Ezequiel BP Systolic 2024-08-08 08:43:00 148 mm[Hg] Step hen F Ezequiel BP Diastolic 2024-08-08 08:43:00 97 mm[Hg] Gregorio phen F Ezequiel Weight Measured 2024-08-08 08:43:00 349.20 pounds Cosmo Nieves Height Measured 2024-08-08 08:43:00 70.00 inches Cosmo Nieves Body Temperature 2024-08-08 08:43:00 101.50 degrees Cosmo F Ezequiel Heart Rate 2024-08-08 08:43:00 89.00 /min Anabela en F Ezequiel Respiratory Rate 2024-08-08 08:43:00 18.00 /min Cosmo F Ezequiel BP Systolic 2024-08-02 14:30:00 164 mm[Hg] Step hen F Ezequiel BP Diastolic 2024-08-02 14:30:00 103 mm[Hg] Gregorio phen F Ezequiel Weight Measured 2024-08-02 14:30:00 358.60 pounds Cosmo F Ezequiel Height Measured 2024-08-02 14:30:00 70.00 inches Cosmo F Ezequiel Body Temperature 2024-08-02 14:30:00 98.90 degrees Cosmo F Ezequiel Heart Rate 2024-08-02 14:30:00 99.00 /min Anabela en F Ezequiel Respiratory Rate 2024-08-02 14:30:00 18.00 /min Cosmo F Ezequiel BP Systolic 2024-02-10 10:21:00 157 mm[Hg] Step [...] Rate 2023-05-24 14:50:00 19.00 /min Cosmo F Ezequiel BP Systolic 2022-08-22 13:29:00 160 mm[Hg] Step [...] Height Measured 2020-07-06 11:59:00 70.00 inches Cosmo Nieves Body Temperature 2020-07-06 11:59:00 98.30 degrees Cosmo Nieves Heart Rate 2020-07-06 11:59:00 64.00 /min Anabela Nieves Respiratory Rate 2020-07-06 11:59:00 Cosmo Nieves BP Systolic 2020-07-06 11:29:00 140 mm[Hg] BP [...] n Source ASSIGNMENT OF BENEFITS 2022-06-08 17:00:19 Aniyah jolly Unassigned, [place] [facility] NM GASTRIC EMPTYING 2021-07-04 18:24:04 Vern Severino [facility] POCT TEST 2021-06-11 15:59:00 Gris Sanchez [facility] URINALYSIS 2021-06-11 15:58:00 Gris Sanchez [facility] LIPASE 2021-06-11 15:33:00 Gris Sanchez [facility] COMP. METABOLIC PANEL ([id number]) 2021-06-11 15:33:00 Gris Sanchez [facility] CBC WITH DIFF 2021-06-11 15:33:00 Gris [facility] COVID-19 (ID NOW RAPID TESTING) 2021-06-11 15:33:00 Gris Sanchez [facility] NOTICE OF PRIVACY PRACTICES 2021-06-11 14:33:32 Doctor Unassigned, [place] [facility] CONSENT/REFUSAL FOR DIAGNOSIS AND TREATMENT 2021-06-11 14:26:41 Doctor Unassigned, [place] [facility] US ABDOMEN COMPLETE 2020-12-19 16:56:42 Vern Severino [facility] PATIENT FINANCIAL POLICY 2020-12-19 16:06:19 Doctor Unassigned, [place] [facility] NOTICE OF PRIVACY PRACTICES 2020-12-19 16:05:57 Doctor Unassigned, [place] [facility] CONSENT/REFUSAL FOR DIAGNOSIS AND TREATMENT 2020-12-19 16:05:36 Doctor Unassigned, [place] [facility] ASSIGNMENT OF BENEFITS 2020-12-19 16:05:11 Aniyah jolly Unassigned, [place] [facility] Ekg 2020-07-06 00:00:00 Cosmo Nieves [id number] Ecg Routine Ecg W/least 12 Lds W/i r 2016-01-25 00:00:00 Cosmo Nieves Plan of Care Planned Activity Planned Date Details Comments Source Goal Plan of Care Note [code = 71976-1] Goal Plan of Care Note [code = 51986-4] Goal Plan of Care Note [code = 46846-0] Goal Plan of Care Note [code = 16716-3] Goal Plan of Care Note [code = 56238-1] Goal Plan of Care Note [code = 84701-2] Goal Plan of Care Note [code = 43789-8] Goal Plan of Care Note [code = 97604-9] Goal Plan of Care Note [code = 47300-2] Goal Plan of Care Note [code = 11161-0] Goal Plan of Care Note [code = 18240-5] Goal Plan of Care Note [code = 42702-5] Goal Plan of Care Note [code = 39899-5] Goal Plan of Care Note [code = 32315-9] Goal Plan of Care Note [code = 82846-5] Goal Plan of Care Note [code = 75259-9] Goal Plan of Care Note [code = 31608-8] Goal Plan of Care Note [code = 96834-5] Goal Plan of Care Note [code = 44460-2] Goal Plan of Care Note [code = 14079-1] Goal Plan of Care Note [code = 40507-1] Goal Plan of Care Note [code = 67759-2] Goal Plan of Care Note [code = 17091-1] Goal Plan of Care Note [code = 07470-1] Goal Plan of Care Note [code = 03218-6] Goal Plan of Care Note [code = 32188-2] Goal Plan of Care Note [code = 38384-3] Goal Plan of Care Note [code = 98194-6] Goal Plan of Care Note [code = 09589-9] Goal Plan of Care Note [code = 25489-9] Goal Plan of Care Note [code = 88805-0] Goal Plan of Care Note [code = 55627-9] Goal Plan of Care Note [code = 77743-1] Goal Plan of Care Note [code = 36806-7] Goal Plan of Care Note [code = 29958-8] Goal Plan of Care Note [code = 43182-2] Goal Plan of Care Note [code = 71902-7] Goal Plan of Care Note [code = 51546-4] Goal Plan of Care Note [code = 97315-3] Goal Plan of Care Note [code = 17643-5] Goal Plan of Care Note [code = 19067-5] Goal Plan of Care Note [code = 94226-4] Goal Plan of Care Note [code = 52935-1] Goal Plan of Care Note [code = 57601-7] Goal Plan of Care Note [code = 46413-1] Goal Plan of Care Note [code = 75408-0] Goal Plan of Care Note [code = 99022-6] Goal Plan of Care Note [code = 82180-7] Goal Plan of Care Note [code = 84818-6] Goal Plan of Care Note [code = 01799-9] Goal Plan of Care Note [code = 03682-3] Goal Plan of Care Note [code = 43944-7] Goal Plan of Care Note [code = 88587-2] Goal Plan of Care Note [code = 99175-1] Goal Plan of Care Note [code = 72380-7] Goal Plan of Care Note [code = 25551-2] Goal Plan of Care Note [code = 73373-4] Goal Plan of Care Note [code = 80532-1] Encounters Start Date/Time End Date/Time Encounter Type Admission Type Attending [facility] Care Department Encounter ID Source 2023-11-02 13:51:31 Outpatient KATHLEEN SAWYER [facility] [id number] [facility] 2024-08-08 08:31:57 2024-08-08 08:31:57 Outpatient SFA [facility] [id number] Cosmo F Ezequiel 2024-08-08 00:00:00 2024-08-08 00:00:00 Outpatient Visit SFA [id number] Cosmo Veronica Ezequiel 2024-08-02 14:30:19 2024-08-02 14:30:19 Outpatient [facility] [id number] Cosmo Nieves 2024-08-02 00:00:00 2024-08-02 00:00:00 Outpatient Visit [facility] [id number] Cosmo Nieves 2024-02-10 10:19:21 2024-02-10 10:19:21 Outpatient [facility] [id number] Cosmo Nieves 2024-02-10 00:00:00 2024-02-10 00:00:00 Outpatient Visit [facility] [id number] Cosmo Nieves 2023-10-11 19:54:00 2023-10-11 23:40:00 Emergency ER ANGÉLICA DIGGS [facility] [id number] [facility] 2023-10-11 19:54:00 2023-10-11 23:40:00 emergency [facility] [id number] 2023-05-24 14:39:56 2023-05-24 14:39:56 Outpatient [facility]FA [facility] [id number] Cosmo Nieves 2022-08-22 13:20:07 2022-08-22 13:20:07 Outpatient SFA [facility] [id number] Cosmo Nieves 2022-08-04 00:00:00 2022-08-04 00:00:00 Outpatient Visit [id number] 2022-06-08 12:01:41 2022-06-08 23:59:00 Outpatient D[place]AS NAQVI [facility] [id number] [facility] 2022-06-08 00:00:00 2022-06-08 00:00:00 Orders Only Doctor Unassigned, [place] [facility] [id number] 350.1.13.10 4.2.7.2.686 [id number] [facility] 2022-04-08 00:00:00 2022-04-08 00:00:00 Outpatient Visit [id number] 2021-07-04 07:46:12 2021-07-04 23:59:00 Outpatient R VERN SOLANO [facility] [id number] [facility] 2021-07-04 07:46:12 2021-07-04 23:59:00 Hospital Encounter Vern Solano [facility] 1..840.114 350.1.13.10 4.2.7.2.686 [id number] [facility] 2021-07-02 00:00:00 2021-07-02 00:00:00 Outpatient R VERN SOLANO [facility] [id number] [facility] 2021-07-02 00:00:00 2021-07-02 00:00:00 Outpatient R VERN SOLANO [facility] [id number] [facility] 2021-06-12 00:00:00 2021-06-12 00:00:00 Patient Secure Msg Doctor Unassigned, [place] [facility] ..840.114 350.1.13.10 4.2.7.2.686 [id number] [facility] 2021-06-11 09:37:00 2021-06-11 13:28:00 Emergency Gris Sanchez [facility] 1..840.114 350.1.13.10 4.2.7.2.686 [id number] [facility] 2021-06-11 09:37:00 2021-06-11 13:28:00 Emergency X GR[facility] SANCHEZ [facility] ERT [id number] [facility] 2020-12-19 11:07:11 2020-12-19 23:59:00 Hospital Encounter Isadora martinezKadieshanae Leon [facility] 1.2.840.114 350.1.13.10 4.2.7.2.686 [id number] [facility] 2020-12-19 00:00:00 2020-12-19 00:00:00 Outpatient R VERN SOLANO [facility] [id number] [facility] 2020-12-19 00:00:00 2020-12-19 00:00:00 Orders Only Doctor Unassigned, [place] [facility] 1.2.840.114 350.1.13.10 4.2.7.2.686 [id number] [facility] 2020-11-26 23:25:00 2020-11-27 04:52:00 Emergency ER BRISSA BETANCUR [facility] [id number] [facility] 2019-04-15 17:08:00 2019-04-15 18:33:00 Emergency ER POLO PATTERSON [facility] [id number] [facility] 2013-01-13 07:43:00 2013-01-13 10:09:00 Emergency ER BRISSA BETANCUR [facility] [id number] [facility] Results Test Description Test Time Test Comments Results Result Co mments Source ALBUMIN/CREATININE RATIO, URINE, [id number] 04:13:59* Test Item Value Reference Range Interpretation Comme nts CREATININE, URINE, CONC. (test code = 2072) 190.2 MG/DL NOT ESTAB ALBUMIN, URINE, RANDOM (test code = 31825) 1.9 MG/DL NOT ESTAB CALC ALBUMIN/CREAT, RND (test code = 20483) 10 MG/G <30 Note: Albumin/Cr eatinine ratio reference interval reflects ADA and NKF guidelines. UNLESS OTHERWISE INDICATED, ALL TESTING PERFORMED AT [facility] [address] [place] [address] [employer]ILD[employer] IRONWORKER: SHWETHA FLOWERS M.D. CLIA NUMBER [id number] [facility] [place]. [id number] COMPREHENSIVE METABOLIC [id number] 04:12:53* Test Item Value Reference Range Interpretation Comme nts GLUCOSE (test code = 2217) 145 MG/DL 70-99 H BUN (test code = 220) 8 MG/DL 6-20 CREATININE (test code = 2214) 0.84 MG/DL 0.60-1.30 eGFR (2020 CKD-EPI) (test co de = 46146) 89 ML/MIN/1.73 >60 CALC BUN/CREAT (test code = 2235) 10 RATIO 6-28 SODIUM (test code = 223) 140 MEQ/L 133-146 POTASSIUM (test code = 2228) 3.4 MEQ/L 3.5-5.4 L CHLORIDE (test code = 2215) 99 MEQ/L 95-107 CARBON DIOXIDE (test code = 2206) 28 MEQ/L 19-31 CALCIUM (test code = 2209) 10.0 MG/DL 8.5-10.5 PROTEIN, TOTAL (test code = 2229) 7.2 G/DL 6.1-8.3 ALBUMIN (test code = 2201) 4.4 G/DL 3.5-5.2 CALC GLOBULIN (test code = 2240) 2.8 G/DL 1.9-3.7 CALC A/G RATIO (test code = 2234) 1.6 RATIO 1.0-2.6 BILIRUBIN, TOTAL (test code = 2207) 0.5 MG/DL <=1.2 ALKALINE PHOSPHATASE (test code = 2204) 75 U/L 40-113 AST (test code = 2218) 29 U/L 9-40 ALT (test code = 2219) 32 U/L 5-40 LIPID [id number] 04:12:53* Test Item Value Reference Range Interpretation Comme nts CHOLESTEROL (test code = 2210) 208 MG/DL <200 H TRIGLYCERIDES (test code = 2232) 145 MG/DL <150 HDL CHOLESTEROL (test code = 2220) 50 MG/DL >39 CALC LDL CHOL (test code = 2237) 132 MG/DL <100 H NOTE: CALCULATED LDL IS BASED ON LIANNE-REYES METHOD WHICHINCLUDES ADJUSTABLE TRIGLYCERIDE:VLDL CHOLESTEROL RATIO.THIS FACTOR VARIES BY MEASURED TRIGLYCERIDE AND NON-HDLCHOLESTEROL CONCENTRATIONS WITH INCREASED CALCULATED LDL SEENIN HIGHER TRIGLYCERIDE OR LOWER NON-HDL SPECIMENS. FOR MOREINFORMATION, SEE CLIENT ANNOUNCEMENT AT [email or web address] RISK RATIO LDL/HDL (test code = 2238) 2.64 RATIO <3.22 CBC W/AUTO DIFF WITH [id number] 03:32:38* Test Item Value Reference Range Interpretation [...] = 1065) 0.0 /100 WBC'S See_Comment [Automated [employer] ge] The system which generated this result [...] 0.00-0.10 ABS NUCLEATED RBCS (test code = 21787) 0.00 K/UL 0.00-0.11 CBC W/AUTO [id number] 00:00:00* Test Item Value Reference Range Interpretation Comme nts WBC (test code = 1001) 12.4 K/UL RBC (test code = 1002) 5.11 M/UL HEMOGLOBIN (test code = 1003) 13.5 G/DL HEMATOCRIT (test code = 1004) 41.8 % MCV (test code = 1005) 81.8 fL MCH (test code = 1006) 26.4 PG MCHC (test code = 1007) 32.3 G/DL RDW (test code = 1038) 16.1 % NEUTROPHILS (test code = 1008) 66.5 % LYMPHOCYTES (test code = 1010) 22.2 % MONOCYTES (test code = 1011) 7.1 % EOSINOPHILS (test code = 1012) 3.3 % BASOPHILS (test code = 1013) 0.5 % IMMATURE GRANULOCYTES (test code = 1036) 0.4 % NUCLEATED RBCS (test code = 1065) 0.0 /100WBC'S PLATELET COUNT (test code = 1015) 327 K/UL ABSOLUTE NEUTROPHILS (test c ode = 1066) 8.21 K/UL ABSOLUTE LYMPHOCYTES (test c ode = 1067) 2.75 K/UL ABSOLUTE MONOCYTES (test cod e = 1068) 0.88 K/UL ABSOLUTE EOSINOPHILS (test c ode = 1040) 0.41 K/UL ABSOLUTE BASOPHILS (test cod e = 1069) 0.06 K/UL ABS IMMATURE GRANULOCYTES (t est code = 1020) 0.05 K/UL ABS NUCLEATED RBCS (test cod e = 60658) 0.00 K/UL Cosmo Veronica EzequielCOMPREHENSIVE METABOLIC [id number] 00:00:00* Test Item Value Reference Range Interpretation Comme nts GLUCOSE (test code = 2217) 145 MG/DL BUN (test code = 2208) 8 MG/DL CREATININE (test code = 2214) 0.84 MG/DL eGFR (2020 CKD-EPI) (test co de = 49990) 89 ML/MIN/1.73 CALC BUN/CREAT (test code = 2235) 10 RATIO SODIUM (test code = 2231) 140 MEQ/L POTASSIUM (test code = 2228) 3.4 MEQ/L CHLORIDE (test code = 2215) 99 MEQ/L CARBON DIOXIDE (test code = 2206) 28 MEQ/L CALCIUM (test code = 2209) 10.0 MG/DL PROTEIN, TOTAL (test code = 2229) 7.2 G/DL ALBUMIN (test code = 2201) 4.4 G/DL CALC GLOBULIN (test code = 2240) 2.8 G/DL CALC A/G RATIO (test code = 2234) 1.6 RATIO BILIRUBIN, TOTAL (test code = 2207) 0.5 MG/DL ALKALINE PHOSPHATASE (test code = 220) 75 U/L AST (test code = 2218) 29 U/L ALT (test code = 2219) 32 U/L Cosmo NievesLIPID [id number] 00:00:00* Test Item Value Reference Range Interpretation Comme nts CHOLESTEROL (test code = 2210) 208 MG/DL TRIGLYCERIDES (test code = 2232) 145 MG/DL HDL CHOLESTEROL (test code = 2220) 50 MG/DL CALC LDL CHOL (test code = 2237) 132 MG/DL RISK RATIO LDL/HDL (test cod e = 2238) 2.64 RATIO Cosmo NievesHEMOGLOBIN [id number] 00:00:00* Test Item Value Reference Range Interpretation Comme [facility] HEMOGLOBIN A1c (test code = 12054) 6.5 % Cosmo NievesALBUMIN/CREATININE RATIO, RANDOM [id number] 00:00:00* Test Item Value Reference Range Interpretation Comme nts CREATININE, URINE, CONC. (te st code = 2072) 190.2 MG/DL ALBUMIN, URINE, RANDOM (test code = 91069) 1.9 MG/DL CALC ALBUMIN/CREAT, RND (naz t code = 16337) 10 MG/G Cosmo NievesTSH, THIRD [id number] 04:23:34* Test Item Value Reference Range Interpretation Comme nts TSH, THIRD GENERATION (test code = 2821) 3.690 UIU/ML 0.400-4.100 UNLESS OTHERWISE INDICATED, ALL TESTING PERFORMED AT [facility] [address] [place] [address] BUILDING [employer]STRUCTION IRONWORKER: SHWETHA FLOWERS M.D. [place] NUMBER [id number] [facility] [place]. [id number] LIPID [id number] 04:19:53* Test Item Value Reference Range Interpretation [...] SPECIMENS. FOR MOREINFORMATION, SEE CLIENT ANNOUNCEMENT AT [email or web address] RISK RATIO LDL/HDL (test code = 2238) 2.94 RATIO <3.22 COMPREHENSIVE METABOLIC [id number] 04:19:53* Test Item Value Reference Range Interpretation Comme nts GLUCOSE (test code = 2217) 220 MG/DL 70-99 H BUN (test code = 2208) 11 MG/DL 6-20 CREATININE (test code = 2214) 0.74 MG/DL 0.60-1.30 eGFR (2020 CKD-EPI) (test code = 64183) 104 ML/MIN/1.73 >60 CALC BUN/CREAT (test code = 2235) 15 RATIO 6-28 SODIUM (test code = 2231) 139 MEQ/L 133-146 POTASSIUM (test code = 2228) 4.6 MEQ/L 3.5-5.4 CHLORIDE (test code = 2215) 97 MEQ/L 95-107 CARBON DIOXIDE (test code = 2206) 26 MEQ/L 19-31 CALCIUM (test code = 2209) 10.2 MG/DL 8.5-10.5 PROTEIN, TOTAL (test code = 222) 6.9 G/DL 6.1-8.3 ALBUMIN (test code = 220) 4.3 G/DL 3.5-5.2 CALC GLOBULIN (test code = 2240) 2.6 G/DL 1.9-3.7 CALC A/G RATIO (test code = 2234) 1.7 RATIO 1.0-2.6 BILIRUBIN, TOTAL (test code = 2207) 0.3 MG/DL <=1.2 ALKALINE PHOSPHATASE (test code = 2204) 81 U/L 40-113 AST (test code = 2218) 54 U/L 9-40 H ALT (test code = 2219) 44 U/L 5-40 H HEMOGLOBIN [id number] 04:16:59* Test Item Value Reference Range Interpretation Comme nts HEMOGLOBIN A1c (test code = 60497) 8.6 % 4.2-5.6 H [employer] GUIDELINES FOR HGB A1C: [...] OR LABORATORY CONSULTATION. CBC W/AUTO DIFF WITH [id number] 02:14:16* Test Item Value Reference Range Interpretation [...] 0.00-0.10 ABS NUCLEATED RBCS (test code = 49223) 0.00 K/UL 0.00-0.11 HEMOGLOBIN [id number] 00:00:00* Test Item Value Reference Range Interpretation Comme nts HEMOGLOBIN A1c (test code = 46423) 8.6 % Cosmo Martin EzequielLIPID [id number] 00:00:00* Test Item Value Reference Range Interpretation Comme nts CHOLESTEROL (test code = 2210) 228 MG/DL TRIGLYCERIDES (test code = 2232) 210 MG/DL HDL CHOLESTEROL (test code = 2220) 49 MG/DL CALC LDL CHOL (test code = 2237) 144 MG/DL RISK RATIO LDL/HDL (test cod e = 2238) 2.94 RATIO Cosmo Martin EzequielC W/AUTO [id number] 00:00:00* Test Item Value Reference Range Interpretation [...] ABS NUCLEATED RBCS (test cod e = 37048) 0.00 K/UL Comso NievesCOMPREHENSIVE METABOLIC [id number] 00:00:00* Test Item Value Reference Range Interpretation Comme nts GLUCOSE (test code = 2217) 220 MG/DL BUN (test code = 2208) 11 MG/DL CREATININE (test code = 2214) 0.74 MG/DL eGFR (2020 CKD-EPI) (test code = 35431) 104 ML/MIN/1.73 CALC BUN/CREAT (test code = [...] (test code = 2219) 44 U/L Cosmo NievesTSH, THIRD [id number] 00:00:00* Test Item Value Reference Range Interpretation Comme parisa TSH, THIRD GENERATION (test code = 2821) 3.690 UIU/ML Cosmo NievesHEMOGLOBIN [id number] 00:00:00* Test Item Value Reference Range Interpretation Comme parisa HEMOGLOBIN A1c (test code = 99669) 8.6 % Cosmo NievesLIPID [id number] 00:00:00* Test Item Value Reference Range Interpretation Comme nts CHOLESTEROL (test code = 2210) 228 MG/DL TRIGLYCERIDES (test code = 2232) 210 MG/DL HDL CHOLESTEROL (test code = 2220) 49 MG/DL CALC LDL CHOL (test code = 2237) 144 MG/DL RISK RATIO LDL/HDL (test cod e = 2238) 2.94 RATIO Cosmo NievesCBC W/AUTO [id number] 00:00:00* Test Item Value Reference Range Interpretation [...] ABS NUCLEATED RBCS (test cod e = 20770) 0.00 K/UL Cosmo NievesCOMPREHENSIVE METABOLIC [id number] 00:00:00* Test Item Value Reference Range Interpretation Comme nts GLUCOSE (test code = 2217) 220 MG/DL BUN (test code = 2208) 11 MG/DL CREATININE (test code = 2214) 0.74 MG/DL eGFR (2020 CKD-EPI) (test code = 12156) 104 ML/MIN/1.73 CALC BUN/CREAT (test code = [...] (test code = 2219) 44 U/L Cosmo Obrien THIRD [id number] 00:00:00* Test Item Value Reference Range Interpretation Comme nts TSH, THIRD GENERATION (test code = 2821) 3.690 UIU/ML Cosmo Obrien, THIRD [id number] 06:33:53* Test Item Value Reference Range Interpretation Comme nts TSH, THIRD GENERATION (test code = 2821) 1.670 UIU/ML 0.400-4.100 COMPREHENSIVE METABOLIC [id number] 05:19:24* Test Item Value Reference Range Interpretation Comme nts GLUCOSE (test code = 2217) 172 MG/DL 70-99 H BUN (test code = 2208) 12 MG/DL 6-20 CREATININE (test code = 2214) 0.68 MG/DL 0.60-1.30 eGFR (2020 CKD-EPI) (test code = 02513) 112 ML/MIN/1.73 >60 CALC BUN/CREAT (test code = 2234) 18 RATIO 6-28 SODIUM (test code = 2230) 138 MEQ/L 133-146 POTASSIUM (test code = 2227) 4.8 MEQ/L 3.5-5.4 CHLORIDE (test code = 2214) 99 MEQ/L 95-107 CARBON DIOXIDE (test code = 2205) 27 MEQ/L 19-31 CALCIUM (test code = 2208) 9.8 MG/DL 8.5-10.5 PROTEIN, TOTAL (test code = 2228) 7.1 G/DL 6.1-8.3 ALBUMIN (test code = 2200) 4.6 G/DL 3.5-5.2 CALC GLOBULIN (test code = 2239) 2.5 G/DL 1.9-3.7 CALC A/G RATIO (test code = 2233) 1.8 RATIO 1.0-2.6 BILIRUBIN, TOTAL (test code = 2206) 0.4 MG/DL <=1.2 ALKALINE PHOSPHATASE (test code = 2203) 88 U/L 40-113 AST (test code = 2217) 61 U/L 9-40 H ALT (test code = 2218) 47 U/L 5-40 H LIPID [id number] 05:19:24* Test Item Value Reference Range Interpretation Comme nts CHOLESTEROL (test code = 221) 245 MG/DL <200 H TRIGLYCERIDES (test code = 2232) 235 MG/DL <150 H HDL CHOLESTEROL (test code = 2219) 55 MG/DL >39 CALC LDL CHOL (test code = 2236) 150 MG/DL <100 H NOTE: CALCULATED LDL IS BASED ON LIANNE-REYES METHOD WHICHINCLUDES ADJUSTABLE TRIGLYCERIDE:VLDL CHOLESTEROL RATIO.THIS FACTOR VARIES BY MEASURED TRIGLYCERIDE AND NON-HDLCHOLESTEROL CONCENTRATIONS WITH INCREASED CALCULATED LDL SEENIN HIGHER TRIGLYCERIDE OR LOWER NON-HDL SPECIMENS. FOR MOREINFORMATION, SEE CLIENT ANNOUNCEMENT AT [email or web address] RISK RATIO LDL/HDL (test code = 2237) 2.73 RATIO <3.22 ALBUMIN/CREATININE RATIO, URINE, [id number] 05:11:57* Test Item Value Reference Range Interpretation Comme nts CREATININE, URINE, CONC. (test code = 2072) 243.2 MG/DL NOT ESTAB ALBUMIN, URINE, RANDOM (test code = 16384) 4.3 MG/DL NOT ESTAB CALC ALBUMIN/CREAT, RND (test code = 35209) 18 MG/G <30 Note: Albumin/Cr eatinine ratio reference interval reflects ADA and NKF guidelines. UNLESS OTHERWISE INDICATED, ALL TESTING PERFORMED AT [facility] [employer] [facility] [address] [place] [address] [employer]ILD[employer] IRONWORKER: SHWETHA FLOWERS M.D. CLIA NUMBER [id number] [facility] [place]. [id number] HEMOGLOBIN [id number] 03:11:30* Test Item Value Reference Range Interpretation Comme nts HEMOGLOBIN A1c (test code = 81536) 7.2 % 4.2-5.6 H [employer] GUIDELINES FOR HGB A1C: [...] ALTERNATE TESTING OR LABORATORY CONSULTATION. COMPREHENSIVE METABOLIC [id number] 00:00:00* Test Item Value Reference Range Interpretation Comme nts GLUCOSE (test code = 2217) 172 MG/DL BUN (test code = 2208) 12 MG/DL CREATININE (test code = 2214) 0.68 MG/DL eGFR (2020 CKD-EPI) (test code = 04946) 112 ML/MIN/1.73 CALC BUN/CREAT (test code = [...] = 2219) 47 U/L Cosmo NievesTSH, THIRD [id number] 00:00:00* Test Item Value Reference Range Interpretation Comme parisa TSH, THIRD GENERATION (test code = 2821) 1.670 UIU/ML Cosmo NievesHEMOGLOBIN [id number] 00:00:00* Test Item Value Reference Range Interpretation Comme parisa HEMOGLOBIN A1c (test code = 55758) 7.2 % Cosmo NievesLIPID [id number] 00:00:00* Test Item Value Reference Range Interpretation Comme nts CHOLESTEROL (test code = 2210) 245 MG/DL TRIGLYCERIDES (test code = 2232) 235 MG/DL HDL CHOLESTEROL (test code = 2220) 55 MG/DL CALC LDL CHOL (test code = 2237) 150 MG/DL RISK RATIO LDL/HDL (test cod e = 2238) 2.73 RATIO Cosmo NievesALBUMIN/CREATININE RATIO, RANDOM [id number] 00:00:00* Test Item Value Reference Range Interpretation Comme parisa CREATININE, URINE, CONC. (te st code = 2072) 243.2 MG/DL ALBUMIN, URINE, RANDOM (test code = 90592) 4.3 MG/DL CALC ALBUMIN/CREAT, RND (naz t code = 75240) 18 MG/G Cosmo NievesCOMPREHENSIVE METABOLIC [id number] 00:00:00* Test Item Value Reference Range Interpretation Comme nts GLUCOSE (test code = 2217) 172 MG/DL BUN (test code = 2208) 12 MG/DL CREATININE (test code = 2214) 0.68 MG/DL eGFR (2020 CKD-EPI) (test code = 61052) 112 ML/MIN/1.73 CALC BUN/CREAT (test code = [...] = 2219) 47 U/L Cosmo NievesTSH, THIRD [id number] 00:00:00* Test Item Value Reference Range Interpretation Comme parisa TSH, THIRD GENERATION (test code = 2821) 1.670 UIU/ML Cosmo NievesHEMOGLOBIN [id number] 00:00:00* Test Item Value Reference Range Interpretation Comme parisa HEMOGLOBIN A1c (test code = 27322) 7.2 % Cosmo NievesLIPID [id number] 00:00:00* Test Item Value Reference Range Interpretation Comme nts CHOLESTEROL (test code = 2210) 245 MG/DL TRIGLYCERIDES (test code = 2232) 235 MG/DL HDL CHOLESTEROL (test code = 2220) 55 MG/DL CALC LDL CHOL (test code = 2237) 150 MG/DL RISK RATIO LDL/HDL (test cod e = 2238) 2.73 RATIO Cosmo NievesALBUMIN/CREATININE RATIO, RANDOM [id number] 00:00:00* Test Item Value Reference Range Interpretation Comme nts CREATININE, URINE, CONC. (te st code = 2072) 243.2 MG/DL ALBUMIN, URINE, RANDOM (test code = 07147) 4.3 MG/DL CALC ALBUMIN/CREAT, RND (naz t code = 93438) 18 MG/G Cosmo NievesCOMPREHENSIVE METABOLIC [id number] 00:00:00* Test Item Value Reference Range Interpretation Comme nts GLUCOSE (test code = 7) 172 MG/DL BUN (test code = 8) 12 MG/DL CREATININE (test code = 2214) 0.68 MG/DL eGFR (2020 CKD-EPI) (test code = 01966) 112 ML/MIN/1.73 CALC BUN/CREAT (test code = 2235) 18 RATIO SODIUM (test code = 2231) 138 MEQ/L POTASSIUM (test code = 2228) 4.8 MEQ/L CHLORIDE (test code = 2215) 99 MEQ/L CARBON DIOXIDE (test code = 2206) 27 MEQ/L CALCIUM (test code = 2209) 9.8 MG/DL PROTEIN, TOTAL (test code = 2229) 7.1 G/DL ALBUMIN (test code = 220) 4.6 G/DL CALC GLOBULIN (test code = 2240) 2.5 G/DL CALC A/G RATIO (test code = 2234) 1.8 RATIO BILIRUBIN, TOTAL (test code = 220) 0.4 MG/DL ALKALINE PHOSPHATASE (test code = 2203) 88 U/L AST (test code = 221) 61 U/L ALT (test code = 221) 47 U/L Cosmo NievesTSH, THIRD [id number] 00:00:00* Test Item Value Reference Range Interpretation Comme nts TSH, THIRD GENERATION (test code = 2821) 1.670 UIU/ML Cosmo NievesHEMOGLOBIN [id number] 00:00:00* Test Item Value Reference Range Interpretation Comme nts HEMOGLOBIN A1c (test code = 56995) 7.2 % Cosmo NievesLIPID [id number] 00:00:00* Test Item Value Reference Range Interpretation Comme nts CHOLESTEROL (test code = 2210) 245 MG/DL TRIGLYCERIDES (test code = 2232) 235 MG/DL HDL CHOLESTEROL (test code = 2220) 55 MG/DL CALC LDL CHOL (test code = 2237) 150 MG/DL RISK RATIO LDL/HDL (test cod e = 2238) 2.73 RATIO Cosmo NievesALBUMIN/CREATININE RATIO, RANDOM [id number] 00:00:00* Test Item Value Reference Range Interpretation Comme nts CREATININE, URINE, CONC. (te st code = 2072) 243.2 MG/DL ALBUMIN, URINE, RANDOM (test code = 29541) 4.3 MG/DL CALC ALBUMIN/CREAT, RND (naz t code = 26388) 18 MG/G Cosmo NievesHEMOGLOBIN [id number] 04:59:44* Test Item Value Reference Range Interpretation Comme nts HEMOGLOBIN A1c (test code = 24287) 6.5 % 4.2-5.6 H [employer] GUIDELINES FOR HGB A1C: [...] CONSIDER ALTERNATE TESTING OR LABORATORY CONSULTATION. LIPID [id number] 03:50:06* Test Item Value Reference Range Interpretation Comme nts CHOLESTEROL (test code = 2210) 187 MG/DL <200 TRIGLYCERIDES (test code = 2232) 197 MG/DL <150 H HDL CHOLESTEROL (test code = 2220) 41 MG/DL >39 CALC LDL CHOL (test code = 7) 114 MG/DL <100 H NOTE: CALCULATED LDL IS BASED ON LIANNE-REYES METHOD WHICHINCLUDES ADJUSTABLE TRIGLYCERIDE:VLDL CHOLESTEROL RATIO.THIS FACTOR VARIES BY MEASURED TRIGLYCERIDE AND NON-HDLCHOLESTEROL CONCENTRATIONS WITH INCREASED CALCULATED LDL SEENIN HIGHER TRIGLYCERIDE OR LOWER NON-HDL SPECIMENS. FOR MOREINFORMATION, SEE CLIENT ANNOUNCEMENT AT [email or web address] [email or web address] RATIO LDL/HDL (test code = 2238) 2.78 RATIO <3.22 COMPREHENSIVE METABOLIC [id number] 03:50:06* Test Item Value Reference Range Interpretation Comme nts GLUCOSE (test code = 2217) 184 MG/DL 70-99 H BUN (test code = 2207) 10 MG/DL 6-20 CREATININE (test code = 2214) 0.85 MG/DL 0.60-1.30 eGFR (2020 CKD-EPI) (test code = 96673) 89 ML/MIN/1.73 >60 CALC BUN/CREAT (test code = 2235) 12 RATIO 6-28 SODIUM (test code = 223) 142 MEQ/L 133-146 POTASSIUM (test code = 2228) 4.1 MEQ/L 3.5-5.4 CHLORIDE (test code = 2215) 102 MEQ/L 95-107 CARBON DIOXIDE (test code = 6) 26 MEQ/L 19-31 CALCIUM (test code = [...] H UNLESS OTHERWISE INDICATED, ALL TESTING PERFORMED [facility] [employer] [address] [place] [address] [employer]ON[employer]ER: CHRISTINA MORALES M.D. CLIA NUMBER [id number] [facility] [place]. [id number] LIPID [id number] 00:00:00* Test Item Value Reference Range Interpretation Comme nts CHOLESTEROL (test code = 2210) 187 MG/DL TRIGLYCERIDES (test code = 2232) 197 MG/DL HDL CHOLESTEROL (test code = 2220) 41 MG/DL CALC LDL CHOL (test code = 2237) 114 MG/DL RISK RATIO LDL/HDL (test cod e = 2238) 2.78 RATIO Cosmo NievesCOMPREHENSIVE METABOLIC [id number] 00:00:00* Test Item Value Reference Range Interpretation Comme nts GLUCOSE (test code = 2217) 184 MG/DL BUN (test code = 2208) 10 MG/DL CREATININE (test code = 2214) 0.85 MG/DL eGFR (2020 CKD-EPI) (test co de = 63349) 89 ML/MIN/1.73 CALC BUN/CREAT (test code = [...] code = 2219) 46 U/L Cosmo NievesHEMOGLOBIN [id number] 00:00:00* Test Item Value Reference Range Interpretation Comme nts HEMOGLOBIN A1c (test code = 62034) 6.5 % Cosmo NievesLIPID [id number] 00:00:00* Test Item Value Reference Range Interpretation Comme nts CHOLESTEROL (test code = 2210) 187 MG/DL TRIGLYCERIDES (test code = 2232) 197 MG/DL HDL CHOLESTEROL (test code = 2220) 41 MG/DL CALC LDL CHOL (test code = 2237) 114 MG/DL RISK RATIO LDL/HDL (test cod e = 2238) 2.78 RATIO Cosmo NievesCOMPREHENSIVE METABOLIC [id number] 00:00:00* Test Item Value Reference Range Interpretation Comme nts GLUCOSE (test code = 2217) 184 MG/DL BUN (test code = 2208) 10 MG/DL CREATININE (test code = 2214) 0.85 MG/DL eGFR (2020 CKD-EPI) (test co de = 69502) 89 ML/MIN/1.73 CALC BUN/CREAT (test code = [...] = 2219) 46 U/L Cosmo Martin AustinHEMOGLOBIN [id number] 00:00:00* Test Item Value Reference Range Interpretation Comme nts HEMOGLOBIN A1c (test code = 34177) 6.5 % Cosmo Martin AustinLIPID [id number] 00:00:00* Test Item Value Reference Range Interpretation Comme nts CHOLESTEROL (test code = 2210) 187 MG/DL TRIGLYCERIDES (test code = 2232) 197 MG/DL HDL CHOLESTEROL (test code = 2220) 41 MG/DL CALC LDL CHOL (test code = 2237) 114 MG/DL RISK RATIO LDL/HDL (test cod e = 2238) 2.78 RATIO Cosmo NievesCOMPREHENSIVE METABOLIC [id number] 00:00:00* Test Item Value Reference Range Interpretation Comme nts GLUCOSE (test code = 2217) 184 MG/DL BUN (test code = 2208) 10 MG/DL CREATININE (test code = 2214) 0.85 MG/DL eGFR (2020 CKD-EPI) (test co de = 75587) 89 ML/MIN/1.73 CALC BUN/CREAT (test code = [...] = 2219) 46 U/L Cosmo Martin AustinHEMOGLOBIN [id number] 00:00:00* Test Item Value Reference Range Interpretation Comme nts HEMOGLOBIN A1c (test code = 15307) 6.5 % Cosmo Martin AustinHEMOGLOBIN [id number] 00:00:00* Test Item Value Reference Range Interpretation Comme nts HEMOGLOBIN A1c (test code = 43378) 6.5 % LIPID [id number] 00:00:00* Test Item Value Reference Range Interpretation Comme nts CHOLESTEROL (test code = 2210) 187 MG/DL TRIGLYCERIDES (test code = 2232) 197 MG/DL HDL CHOLESTEROL (test code = 2220) 41 MG/DL CALC LDL CHOL (test code = 2237) 114 MG/DL RISK RATIO LDL/HDL (test cod e = 2238) 2.78 RATIO COMPREHENSIVE METABOLIC [id number] 00:00:00* Test Item Value Reference Range Interpretation Comme nts GLUCOSE (test code = 2217) 184 MG/DL BUN (test code = 2208) 10 MG/DL CREATININE (test code = 2214) 0.85 MG/DL eGFR (2020 CKD-EPI) (test co de = 15058) 89 ML/MIN/1.73 CALC BUN/CREAT (test code = [...] (test code = 2219) 46 U/L HEMOGLOBIN [id number] 04:36:49* Test Item Value Reference Range Interpretation Comme nts HEMOGLOBIN A1c (test code = 42702) 6.5 % 4.2-5.6 H [employer] GUIDELINES FOR HGB A1C: [...] CONSULTATION. UNLESS OTHERWISE INDICATED, ALL TESTING PERFORMED [facility] [address] [place] [address] [employer]ILD[employer]STRU[employer] IRONWORKER: CHRISTINA MORALES M.D. CLIA NUMBER [id number] [facility] [place]. [id number] COMPREHENSIVE METABOLIC [id number] 03:37:53* Test Item Value Reference Range Interpretation Comme nts GLUCOSE (test code = 2217) 113 MG/DL 70-99 H BUN (test code = 2207) 11 MG/DL 6-20 CREATININE (test code = 2214) 0.76 MG/DL 0.60-1.30 eGFR (2020 CKD-EPI) (test code = 67962) 102 ML/MIN/1.73 >60 CALC BUN/CREAT (test code = 2235) 14 RATIO 6-28 SODIUM (test code = 2231) 139 MEQ/L 133-146 POTASSIUM (test code = [...] code = 2219) 27 U/L 5-40 LIPID [id number] 03:37:53* Test Item Value Reference Range Interpretation Comme nts CHOLESTEROL (test code = 2210) 217 MG/DL <200 H TRIGLYCERIDES (test code = 2232) 226 MG/DL <150 H HDL CHOLESTEROL (test code = 2220) 45 MG/DL >39 CALC LDL CHOL (test code = 2237) 136 MG/DL <100 H NOTE: CALCULATED LDL IS BASED ON LIANNE-REYES METHOD WHICHINCLUDES ADJUSTABLE TRIGLYCERIDE:VLDL CHOLESTEROL RATIO.THIS FACTOR VARIES BY MEASURED TRIGLYCERIDE AND NON-HDLCHOLESTEROL CONCENTRATIONS WITH INCREASED CALCULATED LDL SEENIN HIGHER TRIGLYCERIDE OR LOWER NON-HDL SPECIMENS. FOR MOREINFORMATION, SEE CLIENT ANNOUNCEMENT AT [email or web address] RISK RATIO LDL/HDL (test code = 2238) 3.02 RATIO <3.22 CBC W/AUTO DIFF WITH [id number] 03:37:16* Test Item Value Reference Range Interpretation [...] 0.00-0.10 ABS NUCLEATED RBCS (test code = 16267) 0.00 K/UL 0.00-0.11 COMPREHENSIVE METABOLIC [id number] 00:00:00* Test Item Value Reference Range Interpretation Comme nts GLUCOSE (test code = 2217) 113 MG/DL BUN (test code = 2208) 11 MG/DL CREATININE (test code = 2214) 0.76 MG/DL eGFR (2020 CKD-EPI) (test code = 12473) 102 ML/MIN/1.73 CALC BUN/CREAT (test code = [...] (test code = 2219) 27 U/L Cosmo F AustinLIPID [id number] 00:00:00* Test Item Value Reference Range Interpretation Comme nts CHOLESTEROL (test code = 2210) 217 MG/DL TRIGLYCERIDES (test code = 2232) 226 MG/DL HDL CHOLESTEROL (test code = 2220) 45 MG/DL CALC LDL CHOL (test code = 2237) 136 MG/DL RISK RATIO LDL/HDL (test cod e = 2238) 3.02 RATIO Cosmo NievesHEMOGLOBIN [id number] 00:00:00* Test Item Value Reference Range Interpretation Comme nts HEMOGLOBIN A1c (test code = 91178) 6.5 % Cosmo NievesCBC W/AUTO [id number] 00:00:00* Test Item Value Reference Range Interpretation [...] ABS NUCLEATED RBCS (test cod e = 92413) 0.00 K/UL Cosmo NievesCOMPREHENSIVE METABOLIC [id number] 00:00:00* Test Item Value Reference Range Interpretation Comme nts GLUCOSE (test code = 2217) 113 MG/DL BUN (test code = 2208) 11 MG/DL CREATININE (test code = 2214) 0.76 MG/DL eGFR (2020 CKD-EPI) (test code = 35245) 102 ML/MIN/1.73 CALC BUN/CREAT (test code = [...] code = 2219) 27 U/L Cosmo NievesLIPID [id number] 00:00:00* Test Item Value Reference Range Interpretation Comme nts CHOLESTEROL (test code = 2210) 217 MG/DL TRIGLYCERIDES (test code = 2232) 226 MG/DL HDL CHOLESTEROL (test code = 2220) 45 MG/DL CALC LDL CHOL (test code = 2237) 136 MG/DL RISK RATIO LDL/HDL (test cod e = 2238) 3.02 RATIO Cosmo NievesHEMOGLOBIN [id number] 00:00:00* Test Item Value Reference Range Interpretation Comme nts HEMOGLOBIN A1c (test code = 88818) 6.5 % Cosmo Martin EzequielCBC W/AUTO [id number] 00:00:00* Test Item Value Reference Range Interpretation [...] ABS NUCLEATED RBCS (test cod e = 99312) 0.00 K/UL Cosmo Veronica EzequielCOMPREHENSIVE METABOLIC [id number] 00:00:00* Test Item Value Reference Range Interpretation Comme nts GLUCOSE (test code = 2217) 113 MG/DL BUN (test code = 2208) 11 MG/DL CREATININE (test code = 2214) 0.76 MG/DL eGFR (2020 CKD-EPI) (test code = 21609) 102 ML/MIN/1.73 CALC BUN/CREAT (test code = [...] code = 2219) 27 U/L Cosmo NievesLIPID [id number] 00:00:00* Test Item Value Reference Range Interpretation Comme nts CHOLESTEROL (test code = 2210) 217 MG/DL TRIGLYCERIDES (test code = 2232) 226 MG/DL HDL CHOLESTEROL (test code = 2220) 45 MG/DL CALC LDL CHOL (test code = 2237) 136 MG/DL RISK RATIO LDL/HDL (test cod e = 2238) 3.02 RATIO Cosmo NievesHEMOGLOBIN [id number] 00:00:00* Test Item Value Reference Range Interpretation Comme nts HEMOGLOBIN A1c (test code = 70708) 6.5 % Cosmo NievesCBC W/AUTO [id number] 00:00:00* Test Item Value Reference Range Interpretation [...] ABS NUCLEATED RBCS (test cod e = 42942) 0.00 K/UL [facility]AUTO [id number] 00:00:00* Test Item Value Reference Range Interpretation [...] ABS NUCLEATED RBCS (test cod e = 59437) 0.00 K/UL COMPREHENSIVE METABOLIC [id number] 00:00:00* Test Item Value Reference Range Interpretation Comme nts GLUCOSE (test code = 2217) 113 MG/DL BUN (test code = 2208) 11 MG/DL CREATININE (test code = 2214) 0.76 MG/DL eGFR (2020 CKD-EPI) (test code = 65991) 102 ML/MIN/1.73 CALC BUN/CREAT (test code = [...] (test code = 2219) 27 U/L LIPID [id number] 00:00:00* Test Item Value Reference Range Interpretation Comme nts CHOLESTEROL (test code = 2210) 217 MG/DL TRIGLYCERIDES (test code = 2232) 226 MG/DL HDL CHOLESTEROL (test code = 2220) 45 MG/DL CALC LDL CHOL (test code = 2237) 136 MG/DL RISK RATIO LDL/HDL (test cod e = 2238) 3.02 RATIO HEMOGLOBIN [id number] 00:00:00* Test Item Value Reference Range Interpretation Comme nts HEMOGLOBIN A1c (test code = 48646) 6.5 % CBC W/AUTO [id number] 00:00:00* Test Item Value Reference Range Interpretation [...] ABS NUCLEATED RBCS (test cod e = 46346) 0.00 K/UL COMPREHENSIVE METABOLIC [id number] 00:00:00* Test Item Value Reference Range Interpretation Comme nts GLUCOSE (test code = 2217) 113 MG/DL BUN (test code = 2208) 11 MG/DL CREATININE (test code = 2214) 0.76 MG/DL eGFR (2020 CKD-EPI) (test code = 19821) 102 ML/MIN/1.73 CALC BUN/CREAT (test code = [...] (test code = 2219) 27 U/L LIPID [id number] 00:00:00* Test Item Value Reference Range Interpretation Comme nts CHOLESTEROL (test code = 2210) 217 MG/DL TRIGLYCERIDES (test code = 2232) 226 MG/DL HDL CHOLESTEROL (test code = 2220) 45 MG/DL CALC LDL CHOL (test code = 2237) 136 MG/DL RISK RATIO LDL/HDL (test cod e = 2238) 3.02 RATIO HEMOGLOBIN [id number] 00:00:00* Test Item Value Reference Range Interpretation Comme parisa HEMOGLOBIN A1c (test code = 72167) 6.5 % CULTURE, [id number] 08:54:24SPECIMEN NUMBER: [id number] CULTURE, URINE SPECIMEN NUMBER: [id number] SPECIMEN COMMENT: URINE SOURCE: URINE REPORT STATUS: FINAL FINAL REPORT: 08/23/2021 10-50,000 CFU/ML UROGENITAL SAL PRESENT NO CO MMON PATHOGENS UNLESS OTHERWISE INDICATED, ALL TESTING PERFORMED [facility] [address] [place] [address] BUILDING CONSTRUCTION IRONWORKER: CHRISTINA MORALES M.D. CLIA NUMBER [id number] [facility] [place] [id number] CULTURE, [id number] 00:00:00* Test Item Value Reference Range Interpretation Comme nts CULTURE, URINE (test code = 96157) SPECIMEN NUMBER: [id number] Cosmo Ruano, [id number] 00:00:00* Test Item Value Reference Range Interpretation Comme nts CULTURE, URINE (test code = 70610) SPECIMEN NUMBER: [id number] Cosmo NievesCULTURE, [id number] 00:00:00* Test Item Value Reference Range Interpretation Comme nts CULTURE, URINE (test code = 88742) SPECIMEN NUMBER: [id number] Cosmo Ruano, [id number] 00:00:00* Test Item Value Reference Range Interpretation Comme nts CULTURE, URINE (test code = 07851) SPECIMEN NUMBER: [id number] CULTURE, [id number] 00:00:00* Test Item Value Reference Range Interpretation Comme nts CULTURE, URINE (test code = 95085) SPECIMEN NUMBER: [id number] LIPID [id number] 00:00:00* Test Item Value Reference Range Interpretation Comme nts CHOLESTEROL (test code = 2210) 191 MG/DL TRIGLYCERIDES (test code = 2232) 193 MG/DL HDL CHOLESTEROL (test code = 2220) 43 MG/DL CALC LDL CHOL (test code = 2237) 117 MG/DL RISK RATIO LDL/HDL (test cod e = 2238) 2.72 RATIO Cosmo F [id number] 00:00:00* Test Item Value Reference Range Interpretation Comme nts TSH, THIRD GENERATION (test code = 2821) 1.190 UIU/ML Cosmo NievesHEMOGLOBIN [id number] 00:00:00* Test Item Value Reference Range Interpretation Comme nts HEMOGLOBIN A1c (test code = 85201) 6.8 % Cosmo NievesLIPID [id number] 00:00:00* Test Item Value Reference Range Interpretation Comme nts CHOLESTEROL (test code = 2210) 191 MG/DL TRIGLYCERIDES (test code = 2232) 193 MG/DL HDL CHOLESTEROL (test code = 2220) 43 MG/DL CALC LDL CHOL (test code = 2237) 117 MG/DL RISK RATIO LDL/HDL (test cod e = 2238) 2.72 RATIO Cosmo [id number] 00:00:00* Test Item Value Reference Range Interpretation Comme nts TSH, THIRD GENERATION (test code = 2821) 1.190 UIU/ML Cosmo Martin AustinHEMOGLOBIN [id number] 00:00:00* Test Item Value Reference Range Interpretation Comme nts HEMOGLOBIN A1c (test code = 52795) 6.8 % Cosmo NievesLIPID [id number] 00:00:00* Test Item Value Reference Range Interpretation Comme nts CHOLESTEROL (test code = 2210) 191 MG/DL TRIGLYCERIDES (test code = 2232) 193 MG/DL HDL CHOLESTEROL (test code = 2220) 43 MG/DL CALC LDL CHOL (test code = 2237) 117 MG/DL RISK RATIO LDL/HDL (test cod e = 2238) 2.72 RATIO Cosmo [id number] 00:00:00* Test Item Value Reference Range Interpretation Comme nts TSH, THIRD GENERATION (test code = 2821) 1.190 UIU/ML Cosmo Martin AustinHEMOGLOBIN [id number] 00:00:00* Test Item Value Reference Range Interpretation Comme nts HEMOGLOBIN A1c (test code = 11396) 6.8 % Cosmo Martin AustinHEMOGLOBIN [id number] 00:00:00* Test Item Value Reference Range Interpretation Comme nts HEMOGLOBIN A1c (test code = 01388) 6.8 % LIPID [id number] 00:00:00* Test Item Value Reference Range Interpretation Comme nts CHOLESTEROL (test code = 2210) 191 MG/DL TRIGLYCERIDES (test code = 2232) 193 MG/DL HDL CHOLESTEROL (test code = 2220) 43 MG/DL CALC LDL CHOL (test code = 2237) 117 MG/DL RISK RATIO LDL/HDL (test cod e = 2238) 2.72 RATIO [id number] 00:00:00* Test Item Value Reference Range Interpretation Comme nts TSH, THIRD GENERATION (test code = 2821) 1.190 UIU/ML HEMOGLOBIN [id number] 00:00:00* Test Item Value Reference Range Interpretation Comme nts HEMOGLOBIN A1c (test code = 04850) 6.8 % LIPID [id number] 00:00:00* Test Item Value Reference Range Interpretation Comme nts CHOLESTEROL (test code = 2210) 191 MG/DL TRIGLYCERIDES (test code = 2232) 193 MG/DL HDL CHOLESTEROL (test code = 2220) 43 MG/DL CALC LDL CHOL (test code = 2237) 117 MG/DL RISK RATIO LDL/HDL (test cod e = 2238) 2.72 RATIO [id number] 00:00:00* Test Item Value Reference Range Interpretation Comme nts TSH, THIRD GENERATION (test code = 2821) 1.190 UIU/ML COMP. METABOLIC PANEL ([id number] 16:24:00* Test Item Value Reference Range Interpretation Comme nts NA (test code = 9904062467) 137 mmol/L 135-145 K (test code = 3452727289) 4.1 mmol/L 3.5-5.0 CL (test code = 6354691285) 101 mmol/L 98-108 CO2 TOTAL (test code = 7446592018) 27 mmol/L 23-31 AGAP (test code = 3906584365) 2-16 BUN (test code = 5044059031) 10 mg/dL 7-23 GLUCOSE (test code = 4400474643) 195 mg/dL 70-110 H CREATININE (test code = 8128524192) 0.60 mg/dL 0.50-1.04 TOTAL BILI (test code = 7989895851) 0.6 mg/dL 0.1-1.1 CALCIUM (test code = 8244627740) 9.8 mg/dL 8.6-10.6 T PROTEIN (test code = 5757998364) 7.3 g/dL 6.3-8.2 ALBUMIN (test code = 7293282956) 4.4 g/dL 3.5-5.0 ALK PHOS (test code = 4324920890) 80 U/L 34-122 ALTv (test code = 1742-6) 35 U/L 5-35 AST(SGOT) (test code = 9013736857) 40 U/L 13-40 eGFR (test code = 7717965733) mL/min/1.73m2 EVGENY (test code = EVGENY) Association [...] imaging tests). Lab Interpretation (test code = 12296-5) Abnormal [id number] 16:23:39* Test Item Value Reference Range Interpretation Comme nts LIPASE (test code = 0581448876) 112 U/L 0-220 Lab Interpretation (test cod e = 37092-0) Normal [facility] WITH [id number] 16:18:37* Test Item Value Reference Range Interpretation [...] g/dL 31.6-35.1 L RDW-SD (test code = 58938-1) 48.1 fL 39.0-49.9 RDW-CV (test code = 788-0) 17.8 % 12.0-15.5 H PLT (test code = 777-3) See_Comment H [Automated message] The system which generated this result transmitted reference range: 166 - 358 10*3/?L. The reference range was not used to interpret this result as normal/abnormal. MPV (test code = 04099-2) 12.1 fL 9.5-12.9 NRBC/100 WBC (test code = 2303537021) See_Comment [Automated message] The system which generated this result transmitted reference range: 0.0 - 10.0 /100 WBCs. The reference range was not used to interpret this result as normal/abnormal. NRBC x10^3 (test code = 3484062009) <0.01 See_Comment [Automated message] The system which generated this result transmitted reference range: 10*3/?L. The reference range was not used to interpret this result as normal/abnormal. GRAN MAT (NEUT) % (test code = 770-8) 80.5 % IMM GRAN % (test code = 2286898056) 1.00 % LYMPH % (test code = 736-9) 13.0 % MONO % (test code = 5905-5) 3.8 % EOS % (test code = 713-8) 1.3 % BASO % (test code = 706-2) 0.4 % GRAN MAT x10^3(ANC) (test code = 3920086867) 12.47 10*3/uL 1.88-7.09 H IMM GRAN x10^3 (test code = 6058066145) 0.16 10*3/uL 0.00-0.06 H LYMPH x10^3 (test code = 731-0) 2.02 10*3/uL 1.32-3.29 MONO x10^3 (test code = 742-7) 0.59 10*3/uL 0.33-0.92 EOS x10^3 (test code = 711-2) 0.20 10*3/uL 0.03-0.39 BASO x10^3 (test code = 704-7) 0.06 10*3/uL 0.01-0.07 Lab Interpretation (test code = 19082-1) Abnormal [facility] ResourcesPO[facility] [id number] 15:59:00* Test Item Value Reference Range Interpretation Comme nts POCT PREG (test code = 1605) Negative On board controls acceptable with C Line (test code = 3574) Present POCT PREG LOT # (test code = 3575) HCG [id number] POCT PREG TEST DATE ( test code = 3576) 08/15/2022 Lab Interpretation (test cod e = 51345-3) Normal [facility] ResourcesL[facility] [id number] 00:00:00* Test Item Value Reference Range Interpretation Comme nts CHOLESTEROL (test code = 2210) 208 MG/DL TRIGLYCERIDES (test code = 2232) 140 MG/DL HDL CHOLESTEROL (test code = 2220) 48 MG/DL CALC LDL CHOL (test code = 2237) 134 MG/DL RISK RATIO LDL/HDL (test cod e = 2238) 2.79 RATIO Cosmo F AustinCOMPREHENSIVE METABOLIC [id number] 00:00:00* Test Item Value Reference Range Interpretation Comme nts GLUCOSE (test code = 2217) 143 MG/DL BUN (test code = 2208) 10 MG/DL CREATININE (test code = 2214) 0.60 MG/DL eGFR AMER. (test cod e = 14963) 133 ML/MIN/1.73 eGFR NON- AMER. (test code = 31682) 115 ML/MIN/1.73 CALC BUN/CREAT (test code = [...] (test code = 2219) 34 U/L Cosmo [id number] 00:00:00* Test Item Value Reference Range Interpretation Comme nts TSH, THIRD GENERATION (test code = 2821) 1.940 UIU/ML Cosmo NievesMICROALBUMIN/CREATININE, RANDOM AND [id number] 00:00:00* Test Item Value Reference Range Interpretation Comme nts CREATININE, URINE, CONC. (te st code = 2072) 157.3 MG/DL ALBUMIN, URINE, RANDOM (test code = 22599) 0.6 MG/DL CALC ALBUMIN/CREAT, RND (naz t code = 19513) 4 MG/G Cosmo NievesCBC W/AUTO [id number] 00:00:00* Test Item Value Reference Range Interpretation [...] ABS NUCLEATED RBCS (test cod e = 91582) 0.00 K/UL Cosmo Martin EzequielHIGH SENSITIVITY [id number] 00:00:00* Test Item Value Reference Range Interpretation Comme nts HIGH SENSITIVITY CRP (test c ode = 20987) 41.5 MG/L Cosmo Martin EzequielCCP [id number] 00:00:00* Test Item Value Reference Range Interpretation Comme nts CCP IgG (test code = 36762) <0.5 U/ML Cosmo F EzequielANA (ANTI-NUCLEAR AB) WITH REFLEX [id number] 00:00:00* Test Item Value Reference Range Interpretation Comme nts ANTI-NUCLEAR ANTIBODIES (naz t code = 3506) NEGATIVE Cosmo F EzequielSEDIMENTATION [id number] 00:00:00* Test Item Value Reference Range Interpretation Comme nts SEDIMENTATION RATE (test cod e = 1017) 44 MM/HOUR Cosmo Martin EzequielHEMOGLOBIN [id number] 00:00:00* Test Item Value Reference Range Interpretation Comme nts HEMOGLOBIN A1c (test code = 08631) 7.9 % Cosmo NievesLIPID [id number] 00:00:00* Test Item Value Reference Range Interpretation Comme nts CHOLESTEROL (test code = 2210) 208 MG/DL TRIGLYCERIDES (test code = 2232) 140 MG/DL HDL CHOLESTEROL (test code = 2220) 48 MG/DL CALC LDL CHOL (test code = 2237) 134 MG/DL RISK RATIO LDL/HDL (test cod e = 2238) 2.79 RATIO Cosmo NievesCOMPREHENSIVE METABOLIC [id number] 00:00:00* Test Item Value Reference Range Interpretation Comme nts GLUCOSE (test code = 2217) 143 MG/DL BUN (test code = 2208) 10 MG/DL CREATININE (test code = 2214) 0.60 MG/DL eGFR AMER. (test cod e = 99208) 133 ML/MIN/1.73 eGFR NON- AMER. (test code = 87646) 115 ML/MIN/1.73 CALC BUN/CREAT (test code = [...] (test code = 2219) 34 U/L Cosmo [id number] 00:00:00* Test Item Value Reference Range Interpretation Comme nts TSH, THIRD GENERATION (test code = 2821) 1.940 UIU/ML Cosmo NievesMICROALBUMIN/CREATININE, RANDOM AND [id number] 00:00:00* Test Item Value Reference Range Interpretation Comme nts CREATININE, URINE, CONC. (te st code = 2072) 157.3 MG/DL ALBUMIN, URINE, RANDOM (test code = 59560) 0.6 MG/DL CALC ALBUMIN/CREAT, RND (naz t code = 97844) 4 MG/G Cosmo NievesCBC W/AUTO [id number] 00:00:00* Test Item Value Reference Range Interpretation [...] ABS NUCLEATED RBCS (test cod e = 28957) 0.00 K/UL Cosmo NievesHIGH SENSITIVITY [id number] 00:00:00* Test Item Value Reference Range Interpretation Comme nts HIGH SENSITIVITY CRP (test c ode = 72242) 41.5 MG/L Cosmo NievesCCP [id number] 00:00:00* Test Item Value Reference Range Interpretation Comme nts CCP IgG (test code = 87205) <0.5 U/ML Cosmo NievesANA (ANTI-NUCLEAR AB) WITH REFLEX [id number] 00:00:00* Test Item Value Reference Range Interpretation Comme parisa ANTI-NUCLEAR ANTIBODIES (naz t code = 3506) NEGATIVE Cosmo NievesSEDIMENTATION [id number] 00:00:00* Test Item Value Reference Range Interpretation Comme nts SEDIMENTATION RATE (test cod e = 1017) 44 MM/HOUR Cosmo NievesHEMOGLOBIN [id number] 00:00:00* Test Item Value Reference Range Interpretation Comme parisa HEMOGLOBIN A1c (test code = 61182) 7.9 % Cosmo NievesLIPID [id number] 00:00:00* Test Item Value Reference Range Interpretation Comme nts CHOLESTEROL (test code = 2210) 208 MG/DL TRIGLYCERIDES (test code = 2232) 140 MG/DL HDL CHOLESTEROL (test code = 2220) 48 MG/DL CALC LDL CHOL (test code = 2237) 134 MG/DL RISK RATIO LDL/HDL (test cod e = 2238) 2.79 RATIO Cosmo NievesCOMPREHENSIVE METABOLIC [id number] 00:00:00* Test Item Value Reference Range Interpretation Comme nts GLUCOSE (test code = 2217) 143 MG/DL BUN (test code = 2208) 10 MG/DL CREATININE (test code = 2214) 0.60 MG/DL eGFR AMER. (test cod e = 66850) 133 ML/MIN/1.73 eGFR NON- AMER. (test code = 23039) 115 ML/MIN/1.73 CALC BUN/CREAT (test code = [...] (test code = 2219) 34 U/L Cosmo [id number] 00:00:00* Test Item Value Reference Range Interpretation Comme nts TSH, THIRD GENERATION (test code = 2821) 1.940 UIU/ML Cosmo NievesMICROALBUMIN/CREATININE, RANDOM AND [id number] 00:00:00* Test Item Value Reference Range Interpretation Comme nts CREATININE, URINE, CONC. (te st code = 2072) 157.3 MG/DL ALBUMIN, URINE, RANDOM (test code = 97269) 0.6 MG/DL CALC ALBUMIN/CREAT, RND (naz t code = 32502) 4 MG/G Cosmo NievesCBC W/AUTO [id number] 00:00:00* Test Item Value Reference Range Interpretation [...] ABS NUCLEATED RBCS (test cod e = 21368) 0.00 K/UL Cosmo NievesHIGH SENSITIVITY [id number] 00:00:00* Test Item Value Reference Range Interpretation Comme parisa HIGH SENSITIVITY CRP (test c ode = 22863) 41.5 MG/L Cosmo NievesCCP [id number] 00:00:00* Test Item Value Reference Range Interpretation Comme nts CCP IgG (test code = 00653) <0.5 U/ML Cosmo NievesANA (ANTI-NUCLEAR AB) WITH REFLEX [id number] 00:00:00* Test Item Value Reference Range Interpretation Comme parisa ANTI-NUCLEAR ANTIBODIES (naz t code = 3506) NEGATIVE Cosmo NievesSEDIMENTATION [id number] 00:00:00* Test Item Value Reference Range Interpretation Comme nts SEDIMENTATION RATE (test cod e = 1017) 44 MM/HOUR Cosmo NievesHEMOGLOBIN [id number] 00:00:00* Test Item Value Reference Range Interpretation Comme parisa HEMOGLOBIN A1c (test code = 83848) 7.9 % Cosmo NievesHEMOGLOBIN [id number] 00:00:00* Test Item Value Reference Range Interpretation Comme nts HEMOGLOBIN A1c (test code = 11317) 7.9 % LIPID [id number] 00:00:00* Test Item Value Reference Range Interpretation Comme nts CHOLESTEROL (test code = 2210) 208 MG/DL TRIGLYCERIDES (test code = 2232) 140 MG/DL HDL CHOLESTEROL (test code = 2220) 48 MG/DL CALC LDL CHOL (test code = 2237) 134 MG/DL RISK RATIO LDL/HDL (test cod e = 2238) 2.79 RATIO COMPREHENSIVE METABOLIC [id number] 00:00:00* Test Item Value Reference Range Interpretation Comme nts GLUCOSE (test code = 2217) 143 MG/DL BUN (test code = 2208) 10 MG/DL CREATININE (test code = 2214) 0.60 MG/DL eGFR AMER. (test cod e = 18546) 133 ML/MIN/1.73 eGFR NON- AMER. (test code = 63070) 115 ML/MIN/1.73 CALC BUN/CREAT (test code = [...] 2217) 38 U/L ALT (test code = 2219) 34 U/L [id number] 00:00:00* Test Item Value Reference Range Interpretation Comme nts TSH, THIRD GENERATION (test code = 2821) 1.940 UIU/ML MICROALBUMIN/CREATININE, RANDOM AND [id number] 00:00:00* Test Item Value Reference Range Interpretation Comme nts CREATININE, URINE, CONC. (te st code = 2072) 157.3 MG/DL ALBUMIN, URINE, RANDOM (test code = 95232) 0.6 MG/DL CALC ALBUMIN/CREAT, RND (naz t code = 74557) 4 MG/G CBC W/AUTO [id number] 00:00:00* Test Item Value Reference Range Interpretation [...] ABS NUCLEATED RBCS (test cod e = 25950) 0.00 K/UL HIGH SENSITIVITY [id number] 00:00:00* Test Item Value Reference Range Interpretation Comme nts HIGH SENSITIVITY CRP (test c ode = 33807) 41.5 MG/L CCP [id number] 00:00:00* Test Item Value Reference Range Interpretation Comme nts CCP IgG (test code = 69500) <0.5 U/ML GORDO (ANTI-NUCLEAR AB) WITH REFLEX [id number] 00:00:00* Test Item Value Reference Range Interpretation Comme nts ANTI-NUCLEAR ANTIBODIES (naz t code = 3506) NEGATIVE SEDIMENTATION [id number] 00:00:00* Test Item Value Reference Range Interpretation Comme nts SEDIMENTATION RATE (test cod e = 1017) 44 MM/HOUR HEMOGLOBIN [id number] 00:00:00* Test Item Value Reference Range Interpretation Comme nts HEMOGLOBIN A1c (test code = 28346) 7.9 % LIPID [id number] 00:00:00* Test Item Value Reference Range Interpretation Comme nts CHOLESTEROL (test code = 2210) 208 MG/DL TRIGLYCERIDES (test code = 2232) 140 MG/DL HDL CHOLESTEROL (test code = 2220) 48 MG/DL CALC LDL CHOL (test code = 2237) 134 MG/DL RISK RATIO LDL/HDL (test cod e = 2238) 2.79 RATIO COMPREHENSIVE METABOLIC [id number] 00:00:00* Test Item Value Reference Range Interpretation Comme nts GLUCOSE (test code = 2217) 143 MG/DL BUN (test code = 2208) 10 MG/DL CREATININE (test code = 2214) 0.60 MG/DL eGFR AMER. (test cod e = ) 133 ML/MIN/1.73 eGFR NON- AMER. (test code = 99225) 115 ML/MIN/1.73 CALC BUN/CREAT (test code = 2235) 17 RATIO SODIUM (test code = 223) 138 MEQ/L POTASSIUM (test code = 2228) 4.4 MEQ/L CHLORIDE (test code = 2215) 98 MEQ/L CARBON DIOXIDE (test code = 2206) 29 MEQ/L CALCIUM (test code = 2209) 9.6 MG/DL PROTEIN, TOTAL (test code = 2228) 6.7 G/DL ALBUMIN (test code = 2200) 4.4 G/DL CALC GLOBULIN (test code = 2240) 2.3 G/DL CALC A/G RATIO (test code = 2234) 1.9 RATIO BILIRUBIN, TOTAL (test code = 2206) 0.3 MG/DL ALKALINE PHOSPHATASE (test code = 2203) 78 U/L AST (test code = 2218) 38 U/L ALT (test code = 2219) 34 U/L [id number] 00:00:00* Test Item Value Reference Range Interpretation Comme nts TSH, THIRD GENERATION (test code = 2821) 1.940 UIU/ML MICROALBUMIN/CREATININE, RANDOM AND [id number] 00:00:00* Test Item Value Reference Range Interpretation Comme nts CREATININE, URINE, CONC. (te st code = 2072) 157.3 MG/DL ALBUMIN, URINE, RANDOM (test code = 26752) 0.6 MG/DL CALC ALBUMIN/CREAT, RND (naz t code = 69526) 4 MG/G CBC W/AUTO [id number] 00:00:00* Test Item Value Reference Range Interpretation [...] ABS NUCLEATED RBCS (test cod e = 86702) 0.00 K/UL HIGH SENSITIVITY [id number] 00:00:00* Test Item Value Reference Range Interpretation Comme nts HIGH SENSITIVITY CRP (test c ode = 72075) 41.5 MG/L CCP [id number] 00:00:00* Test Item Value Reference Range Interpretation Comme nts CCP IgG (test code = 03817) <0.5 U/ML GORDO (ANTI-NUCLEAR AB) WITH REFLEX [id number] 00:00:00* Test Item Value Reference Range Interpretation Comme nts ANTI-NUCLEAR ANTIBODIES (naz t code = 3506) NEGATIVE SEDIMENTATION [id number] 00:00:00* Test Item Value Reference Range Interpretation Comme nts SEDIMENTATION RATE (test cod e = 1017) 44 MM/HOUR US ABDOMEN [id number] 17:05:12HISTORY: Recurrent epigastric abdominal pain. TECHNIQUE: Upper [...] in these organs. Cortex of bothkidneys range [id number] mm and 14 mm. No hydronephrosis, free fluid in theupper abdomen or aortic aneurysm detected. Visualized portions of thepancreas appear normal. Hepatic and portal venous system appear patent,with hepatopetal portal flow noted. Gallbladder has been removed. Common hepatic duct is 4.0 mm. CONCLUSIONS:1. Moderate hepatomegaly with moderate diffuse steatosis.2. S/P cholecystectomy. [facility], Radiant Results Inft User - 12/19/2020 12:06 [...] hepatomegaly with moderate diffuse steatosis.2. S/P [facility]olecystectomy. [facility] [ADDED]2020-07-10 00:00:00* Test Item Value Reference Range Interpretation Comme nts NOTE: (test code = 998) (NOTE) Cosmo Veronica AustinNOTE: [ADDED]2020-07-10 00:00:00* Test Item Value Reference Range Interpretation Comme nts NOTE: (test code = 998) (NOTE) Cosmo Martin EzequielNOTE: [ADDED]2020-07-10 00:00:00* Test Item Value Reference Range Interpretation Comme nts NOTE: (test code = 998) (NOTE) Cosmo Veronica DeniceE: [ADDED]2020-07-10 00:00:00* Test Item Value Reference Range Interpretation Comme nts NOTE: (test code = 998) (NOTE) NOTE: [ADDED]2020-07-10 00:00:00* Test Item Value Reference Range Interpretation Comme nts NOTE: (test code = 998) (NOTE) HEMOGLOBIN A1c [ADDED]2020-07-09 00:00:00* Test Item Value Reference Range Interpretation Comme nts HEMOGLOBIN A1c (test code = 41467) 8.1 % Cosmo Martin AustinHEMOGLOBIN A1c [ADDED]2020-07-09 00:00:00* Test Item Value Reference Range Interpretation Comme nts HEMOGLOBIN A1c (test code = 13808) 8.1 % Cosmo F AustinHEMOGLOBIN A1c [ADDED]2020-07-09 00:00:00* Test Item Value Reference Range Interpretation Comme nts HEMOGLOBIN A1c (test code = 83035) 8.1 % Cosmo Martin AustinHEMOGLOBIN A1c [ADDED]2020-07-09 00:00:00* Test Item Value Reference Range Interpretation Comme nts HEMOGLOBIN A1c (test code = 46116) 8.1 % HEMOGLOBIN A1c [ADDED]2020-07-09 00:00:00* Test Item Value Reference Range Interpretation Comme nts HEMOGLOBIN A1c (test code = 23887) 8.1 % [id number] 00:00:00* Test Item Value Reference Range Interpretation Comme nts TSH, THIRD GENERATION (test code = 2821) 2.590 UIU/ML Cosmo Martin [id number] 00:00:00* Test Item Value Reference Range Interpretation Comme nts TSH, THIRD GENERATION (test code = 2821) 2.590 UIU/ML Cosmo Martin [id number] 00:00:00* Test Item Value Reference Range Interpretation Comme nts TSH, THIRD GENERATION (test code = 2821) 2.590 UIU/ML Cosmo F [id number] 00:00:00* Test Item Value Reference Range Interpretation Comme nts TSH, THIRD GENERATION (test code = 2821) 2.590 UIU/ML [id number] 00:00:00* Test Item Value Reference Range Interpretation Comme nts TSH, THIRD GENERATION (test code = 2821) 2.590 UIU/ML LIPID [id number] 00:00:00* Test Item Value Reference Range Interpretation Comme nts CHOLESTEROL (test code = 2210) 161 MG/DL TRIGLYCERIDES (test code = 2232) 162 MG/DL HDL CHOLESTEROL (test code = 2220) 39 MG/DL CALC LDL CHOL (test code = 2237) 96 MG/DL RISK RATIO LDL/HDL (test cod e = 2238) 2.46 RATIO Cosmo NievesCOMPREHENSIVE METABOLIC [id number] 00:00:00* Test Item Value Reference Range Interpretation Comme nts GLUCOSE (test code = 2217) 173 MG/DL BUN (test code = 2208) 8 MG/DL CREATININE (test code = 2214) 0.55 MG/DL eGFR AMER. (test cod e = 31183) 138 ML/MIN/1.73 eGFR NON- AMER. (test code = 67581) 119 ML/MIN/1.73 CALC BUN/CREAT (test code = [...] (test code = 2219) 32 U/L Cosmo NievseCBC W/AUTO [id number] 00:00:00* Test Item Value Reference Range Interpretation [...] code = 1015) 282 K/UL Cosmo NievesLIPID [id number] 00:00:00* Test Item Value Reference Range Interpretation Comme nts CHOLESTEROL (test code = 2210) 161 MG/DL TRIGLYCERIDES (test code = 2232) 162 MG/DL HDL CHOLESTEROL (test code = 2220) 39 MG/DL CALC LDL CHOL (test code = 2237) 96 MG/DL RISK RATIO LDL/HDL (test cod e = 2238) 2.46 RATIO Cosmo NievesCOMPREHENSIVE METABOLIC [id number] 00:00:00* Test Item Value Reference Range Interpretation Comme nts GLUCOSE (test code = 2217) 173 MG/DL BUN (test code = 2208) 8 MG/DL CREATININE (test code = 2214) 0.55 MG/DL eGFR AMER. (test cod e = 97968) 138 ML/MIN/1.73 eGFR NON- AMER. (test code = 72967) 119 ML/MIN/1.73 CALC BUN/CREAT (test code = [...] = 2219) 32 U/L Cosmo NievesCBC W/AUTO [id number] 00:00:00* Test Item Value Reference Range Interpretation [...] (test code = 1015) 282 K/UL Cosmo Martin MorriltonLIPID [id number] 00:00:00* Test Item Value Reference Range Interpretation Comme nts CHOLESTEROL (test code = 2210) 161 MG/DL TRIGLYCERIDES (test code = 2232) 162 MG/DL HDL CHOLESTEROL (test code = 2220) 39 MG/DL CALC LDL CHOL (test code = 2237) 96 MG/DL RISK RATIO LDL/HDL (test cod e = 2238) 2.46 RATIO Cosmo NievesCOMPREHENSIVE METABOLIC [id number] 00:00:00* Test Item Value Reference Range Interpretation Comme nts GLUCOSE (test code = 2217) 173 MG/DL BUN (test code = 2208) 8 MG/DL CREATININE (test code = 2214) 0.55 MG/DL eGFR AMER. (test cod e = 85892) 138 ML/MIN/1.73 eGFR NON- AMER. (test code = 61119) 119 ML/MIN/1.73 CALC BUN/CREAT (test code = [...] (test code = 2219) 32 U/L Cosmo NievesC W/AUTO [id number] 00:00:00* Test Item Value Reference Range Interpretation [...] (test code = 1015) 282 K/UL [facility] [id number] 00:00:00* Test Item Value Reference Range Interpretation [...] (test code = 1015) 282 K/UL LIPID [id number] 00:00:00* Test Item Value Reference Range Interpretation Comme nts CHOLESTEROL (test code = 2210) 161 MG/DL TRIGLYCERIDES (test code = 2232) 162 MG/DL HDL CHOLESTEROL (test code = 2220) 39 MG/DL CALC LDL CHOL (test code = 2237) 96 MG/DL RISK RATIO LDL/HDL (test cod e = 2238) 2.46 RATIO COMPREHENSIVE METABOLIC [id number] 00:00:00* Test Item Value Reference Range Interpretation Comme nts GLUCOSE (test code = 2217) 173 MG/DL BUN (test code = 2208) 8 MG/DL CREATININE (test code = 2214) 0.55 MG/DL eGFR AMER. (test cod e = 19321) 138 ML/MIN/1.73 eGFR NON- AMER. (test code = 89031) 119 ML/MIN/1.73 CALC BUN/CREAT (test code = [...] code = 2219) 32 U/L CBC W/AUTO [id number] 00:00:00* Test Item Value Reference Range Interpretation [...] (test code = 1015) 282 K/UL LIPID [id number] 00:00:00* Test Item Value Reference Range Interpretation Comme nts CHOLESTEROL (test code = 2210) 161 MG/DL TRIGLYCERIDES (test code = 2232) 162 MG/DL HDL CHOLESTEROL (test code = 2220) 39 MG/DL CALC LDL CHOL (test code = 2237) 96 MG/DL RISK RATIO LDL/HDL (test cod e = 2238) 2.46 RATIO COMPREHENSIVE METABOLIC [id number] 00:00:00* Test Item Value Reference Range Interpretation Comme nts GLUCOSE (test code = 2217) 173 MG/DL BUN (test code = 2208) 8 MG/DL CREATININE (test code = 2214) 0.55 MG/DL eGFR AMER. (test cod e = 67699) 138 ML/MIN/1.73 eGFR NON- AMER. (test code = 22268) 119 ML/MIN/1.73 CALC BUN/CREAT (test code = [...] ALT (test code = 2219) 32 U/L [id number] 00:00:00* Test Item Value Reference Range Interpretation Comme nts TSH, THIRD GENERATION (test code = 2821) 4.100 UIU/ML Cosmo Martin [id number] 00:00:00* Test Item Value Reference Range Interpretation Comme nts TSH, THIRD GENERATION (test code = 2821) 4.100 UIU/ML Cosmo F [id number] 00:00:00* Test Item Value Reference Range Interpretation Comme nts TSH, THIRD GENERATION (test code = 2821) 4.100 UIU/ML Cosmo F [id number] 00:00:00* Test Item Value Reference Range Interpretation Comme nts TSH, THIRD GENERATION (test code = 2821) 4.100 UIU/ML [id number] 00:00:00* Test Item Value Reference Range Interpretation Comme nts TSH, THIRD GENERATION (test code = 2821) 4.100 UIU/ML HEMOGLOBIN [id number] 00:00:00* Test Item Value Reference Range Interpretation Comme nts HEMOGLOBIN A1c (test code = 88250) 9.0 % Cosmo Martin MorriltonCOMPREHENSIVE METABOLIC [id number] 00:00:00* Test Item Value Reference Range Interpretation Comme nts GLUCOSE (test code = 2217) 176 MG/DL BUN (test code = 2208) 8 MG/DL CREATININE (test code = 2214) 0.53 MG/DL eGFR AMER. (test cod e = 47096) 140 ML/MIN/1.73 eGFR NON- AMER. (test code = 33654) 120 ML/MIN/1.73 CALC BUN/CREAT (test code = [...] code = 2219) 35 U/L Cosmo NievesHEMOGLOBIN [id number] 00:00:00* Test Item Value Reference Range Interpretation Comme parisa HEMOGLOBIN A1c (test code = 20439) 9.0 % Cosmo Martin AustinCOMPREHENSIVE METABOLIC [id number] 00:00:00* Test Item Value Reference Range Interpretation Comme nts GLUCOSE (test code = 2217) 176 MG/DL BUN (test code = 2208) 8 MG/DL CREATININE (test code = 2214) 0.53 MG/DL eGFR AMER. (test cod e = 13082) 140 ML/MIN/1.73 eGFR NON- AMER. (test code = 85441) 120 ML/MIN/1.73 CALC BUN/CREAT (test code = [...] (test code = 2219) 35 U/L Cosmo Martin AustinHEMOGLOBIN [id number] 00:00:00* Test Item Value Reference Range Interpretation Comme parisa HEMOGLOBIN A1c (test code = 56261) 9.0 % Cosmo Martin AustinCOMPREHENSIVE METABOLIC [id number] 00:00:00* Test Item Value Reference Range Interpretation Comme nts GLUCOSE (test code = 2217) 176 MG/DL BUN (test code = 2208) 8 MG/DL CREATININE (test code = 2214) 0.53 MG/DL eGFR AMER. (test cod e = 29870) 140 ML/MIN/1.73 eGFR NON- AMER. (test code = 83110) 120 ML/MIN/1.73 CALC BUN/CREAT (test code = [...] = 2219) 35 U/L Cosmo NievesCOMPREHENSIVE METABOLIC [id number] 00:00:00* Test Item Value Reference Range Interpretation Comme nts GLUCOSE (test code = 2217) 176 MG/DL BUN (test code = 2208) 8 MG/DL CREATININE (test code = 2214) 0.53 MG/DL eGFR AMER. (test cod e = 70850) 140 ML/MIN/1.73 eGFR NON- AMER. (test code = 05731) 120 ML/MIN/1.73 CALC BUN/CREAT (test code = [...] (test code = 2219) 35 U/L HEMOGLOBIN [id number] 00:00:00* Test Item Value Reference Range Interpretation Comme nts HEMOGLOBIN A1c (test code = 18724) 9.0 % COMPREHENSIVE METABOLIC [id number] 00:00:00* Test Item Value Reference Range Interpretation Comme nts GLUCOSE (test code = 2217) 176 MG/DL BUN (test code = 2208) 8 MG/DL CREATININE (test code = 2214) 0.53 MG/DL eGFR AMER. (test cod e = 71932) 140 ML/MIN/1.73 eGFR NON- AMER. (test code = 05937) 120 ML/MIN/1.73 CALC BUN/CREAT (test code = [...] (test code = 2219) 35 U/L HEMOGLOBIN [id number] 00:00:00* Test Item Value Reference Range Interpretation Comme nts HEMOGLOBIN A1c (test code = 92022) 9.0 % LIPID PANEL (REFL)2019-06-20 00:00:00* Test Item Value Reference Range Interpretation Comme nts CHOLESTEROL, TOTAL (test cod e = 2093-3) 192 mg/dL HDL CHOLESTEROL (test code = 2085-9) 51 mg/dL TRIGLYCERIDES (test code = 2571-8) 221 mg/dL LDL-CHOLESTEROL (test code = 91212-9) 108 mg/dL(calc) CHOL/HDLC RATIO (test code = 9830-1) 3.8 (calc) NON HDL CHOLESTEROL (test code = 94492-2) 141 mg/dL(calc) Cosmo NievesCOMPREHENSIVE METABOLIC [id number] 00:00:00* Test Item Value Reference Range Interpretation Comme nts GLUCOSE (test code = 2345-7) 194 mg/dL UREA NITROGEN (BUN) (test code = 3094-0) 10 mg/dL CREATININE (test code = 2160-0) 0.61 mg/dL eGFR NON-AFR. BURKINAN (test code = 58728-1) 116 mL/min/1.73m2 eGFR (test code = 34748-4) 134 mL/min/1.73m2 BUN/CREATININE RATIO (test code = 3097-3) NOT APPLICABLE (calc) SODIUM (test code = 2951-2) 135 mmol/L POTASSIUM (test code = 2823-3) 4.0 mmol/L CHLORIDE (test code = 2075-0) 97 mmol/L CARBON DIOXIDE (test code = 2027-9) 26 mmol/L CALCIUM (test code = 90934-1) 9.5 mg/dL PROTEIN, TOTAL (test code = 2885-2) 6.7 g/dL ALBUMIN (test code = 1751-7) 4.0 g/dL GLOBULIN (test code = 36522-8) 2.7 g/dL(calc) ALBUMIN/GLOBULIN RATIO (test code = 1759-0) 1.5 (calc) BILIRUBIN, TOTAL (test code = 1975-2) 0.4 mg/dL ALKALINE PHOSPHATASE (test code = 6768-6) 76 U/L AST (test code = 1920-8) 35 U/L ALT (test code = 1742-6) 39 U/L Cosmo [id number] 00:00:00* Test Item Value Reference Range Interpretation Comme parisa TSH (test code = 3016-3) 2.16 mIU/L Cosmo NievesHEMOGLOBIN [id number] 00:00:00* Test Item Value Reference Range Interpretation [...] cells/uL ABSOLUTE BAND NEUTROPHILS (test code = 04956-8) DNR cells/uL ABSOLUTE METAMYELOCYTES (test code = 42660-7) DNR cells/uL ABSOLUTE MYELOCYTES (test code = 34056-7) DNR cells/uL ABSOLUTE PROMYELOCYTES (test code = 74042-8) DNR cells/uL ABSOLUTE LYMPHOCYTES (test code = 731-0) 2290 cells/uL ABSOLUTE MONOCYTES (test code = 742-7) 524 cells/uL ABSOLUTE EOSINOPHILS (test code = 711-2) 364 cells/uL ABSOLUTE BASOPHILS (test code = 704-7) 64 cells/uL ABSOLUTE BLASTS (test code = 64633-0) DNR cells/uL ABSOLUTE NUCLEATED RBC (test code = 87414-3) DNR cells/uL NEUTROPHILS (test code = 770-8) 69.7 % BAND NEUTROPHILS (test code = 764-1) DNR % METAMYELOCYTES (test code = 740-1) DNR % MYELOCYTES (test code = 749-2) DNR % PROMYELOCYTES (test code = 783-1) DNR % LYMPHOCYTES (test code = 736-9) 21.4 % REACTIVE LYMPHOCYTES (test code = 97598-7) DNR % MONOCYTES (test code = 5905-5) 4.9 % EOSINOPHILS (test code = 713-8) 3.4 % BASOPHILS (test code = 706-2) 0.6 % BLASTS (test code = 709-6) DNR % NUCLEATED RBC (test code = 49267-1) DNR /100WBC Cosmo Martin MorriltonLIPID PANEL (REFL)2019-06-20 00:00:00* Test Item Value Reference Range Interpretation Comme nts CHOLESTEROL, TOTAL (test cod e = 2093-3) 192 mg/dL HDL CHOLESTEROL (test code = 2085-9) 51 mg/dL TRIGLYCERIDES (test code = 2571-8) 221 mg/dL LDL-CHOLESTEROL (test code = 71061-7) 108 mg/dL(calc) CHOL/HDLC RATIO (test code = 9830-1) 3.8 (calc) NON HDL CHOLESTEROL (test code = 29009-2) 141 mg/dL(calc) Cosmo NievesCOMPREHENSIVE METABOLIC [id number] 00:00:00* Test Item Value Reference Range Interpretation Comme nts GLUCOSE (test code = 2345-7) 194 mg/dL UREA NITROGEN (BUN) (test code = 3094-0) 10 mg/dL CREATININE (test code = 2160-0) 0.61 mg/dL eGFR NON-AFR. BURKINAN (test code = 14893-3) 116 mL/min/1.73m2 eGFR (test code = 19269-1) 134 mL/min/1.73m2 BUN/CREATININE RATIO (test code = 3097-3) NOT APPLICABLE (calc) SODIUM (test code = 2951-2) 135 mmol/L POTASSIUM (test code = 2823-3) 4.0 mmol/L CHLORIDE (test code = 2075-0) 97 mmol/L CARBON DIOXIDE (test code = 2027-9) 26 mmol/L CALCIUM (test code = 31485-1) 9.5 mg/dL PROTEIN, TOTAL (test code = 2885-2) 6.7 g/dL ALBUMIN (test code = 1751-7) 4.0 g/dL GLOBULIN (test code = 28491-5) 2.7 g/dL(calc) ALBUMIN/GLOBULIN RATIO (test code = 1759-0) 1.5 (calc) BILIRUBIN, TOTAL (test code = 1975-2) 0.4 mg/dL ALKALINE PHOSPHATASE (test code = 6768-6) 76 U/L AST (test code = 1920-8) 35 U/L ALT (test code = 1742-6) 39 U/L Cosmo [id number] 00:00:00* Test Item Value Reference Range Interpretation Comme parisa TSH (test code = 3016-3) 2.16 mIU/L Cosmo NievesHEMOGLOBIN [id number] 00:00:00* Test Item Value Reference Range Interpretation [...] cells/uL ABSOLUTE BAND NEUTROPHILS (test code = 21610-2) DNR cells/uL ABSOLUTE METAMYELOCYTES (test code = 32215-3) DNR cells/uL ABSOLUTE MYELOCYTES (test code = 95758-5) DNR cells/uL ABSOLUTE PROMYELOCYTES (test code = 24654-4) DNR cells/uL ABSOLUTE LYMPHOCYTES (test code = 731-0) 2290 cells/uL ABSOLUTE MONOCYTES (test code = 742-7) 524 cells/uL ABSOLUTE EOSINOPHILS (test code = 711-2) 364 cells/uL ABSOLUTE BASOPHILS (test code = 704-7) 64 cells/uL ABSOLUTE BLASTS (test code = 43982-8) DNR cells/uL ABSOLUTE NUCLEATED RBC (test code = 95195-1) DNR cells/uL NEUTROPHILS (test code = 770-8) 69.7 % BAND NEUTROPHILS (test code = 764-1) DNR % METAMYELOCYTES (test code = 740-1) DNR % MYELOCYTES (test code = 749-2) DNR % PROMYELOCYTES (test code = 783-1) DNR % LYMPHOCYTES (test code = 736-9) 21.4 % REACTIVE LYMPHOCYTES (test code = 58632-3) DNR % MONOCYTES (test code = 5905-5) 4.9 % EOSINOPHILS (test code = 713-8) 3.4 % BASOPHILS (test code = 706-2) 0.6 % BLASTS (test code = 709-6) DNR % NUCLEATED RBC (test code = 37163-2) DNR /100WBC Cosmo Martin MorriltonLIPID PANEL (REFL)2019-06-20 00:00:00* Test Item Value Reference Range Interpretation Comme nts CHOLESTEROL, TOTAL (test cod e = 2093-3) 192 mg/dL HDL CHOLESTEROL (test code = 2085-9) 51 mg/dL TRIGLYCERIDES (test code = 2571-8) 221 mg/dL LDL-CHOLESTEROL (test code = 11914-2) 108 mg/dL(calc) CHOL/HDLC RATIO (test code = 9830-1) 3.8 (calc) NON HDL CHOLESTEROL (test code = 20650-0) 141 mg/dL(calc) Cosmo Martin EzequielCOMPREHENSIVE METABOLIC [id number] 00:00:00* Test Item Value Reference Range Interpretation Comme nts GLUCOSE (test code = 2345-7) 194 mg/dL UREA NITROGEN (BUN) (test code = 3094-0) 10 mg/dL CREATININE (test code = 2160-0) 0.61 mg/dL eGFR NON-AFR. BURKINAN (test code = 71055-1) 116 mL/min/1.73m2 eGFR (test code = 53534-1) 134 mL/min/1.73m2 BUN/CREATININE RATIO (test code = 3097-3) NOT APPLICABLE (calc) SODIUM (test code = 2951-2) 135 mmol/L POTASSIUM (test code = 2823-3) 4.0 mmol/L CHLORIDE (test code = 2075-0) 97 mmol/L CARBON DIOXIDE (test code = 8-9) 26 mmol/L CALCIUM (test code = 57279-1) 9.5 mg/dL PROTEIN, TOTAL (test code = 2885-2) 6.7 g/dL ALBUMIN (test code = 1751-7) 4.0 g/dL GLOBULIN (test code = 67183-3) 2.7 g/dL(calc) ALBUMIN/GLOBULIN RATIO (test code = 1759-0) 1.5 (calc) BILIRUBIN, TOTAL (test code = 1975-2) 0.4 mg/dL ALKALINE PHOSPHATASE (test code = 6768-6) 76 U/L AST (test code = 1920-8) 35 U/L ALT (test code = 1742-6) 39 U/L Cosmo [id number] 00:00:00* Test Item Value Reference Range Interpretation Comme parisa TSH (test code = 3016-3) 2.16 mIU/L Cosmo NievesHEMOGLOBIN [id number] 00:00:00* Test Item Value Reference Range Interpretation Comme parisa HEMOGLOBIN A1c (test code = 4548-4) 10.2 %oftotalHgb Cosmo NievesCBC (INCLUDES DIFF/PLT)2019-06-20 00:00:00* Test Item Value Reference Range Interpretation Comme [facility] WHITE BLOOD CELL COUNT (test code [...] cells/uL ABSOLUTE BAND NEUTROPHILS (test code = 50891-8) DNR cells/uL ABSOLUTE METAMYELOCYTES (test code = 59589-8) DNR cells/uL ABSOLUTE MYELOCYTES (test code = 21066-2) DNR cells/uL ABSOLUTE PROMYELOCYTES (test code = 57520-7) DNR cells/uL ABSOLUTE LYMPHOCYTES (test code = 731-0) 2290 cells/uL ABSOLUTE MONOCYTES (test code = 742-7) 524 cells/uL ABSOLUTE EOSINOPHILS (test code = 711-2) 364 cells/uL ABSOLUTE BASOPHILS (test code = 704-7) 64 cells/uL ABSOLUTE BLASTS (test code = 13886-5) DNR cells/uL ABSOLUTE NUCLEATED RBC (test code = 32263-7) DNR cells/uL NEUTROPHILS (test code = 770-8) 69.7 % BAND NEUTROPHILS (test code = 764-1) DNR % METAMYELOCYTES (test code = 740-1) DNR % MYELOCYTES (test code = 749-2) DNR % PROMYELOCYTES (test code = 783-1) DNR % LYMPHOCYTES (test code = 736-9) 21.4 % REACTIVE LYMPHOCYTES (test code = 29754-0) DNR % MONOCYTES (test code = 5905-5) 4.9 % EOSINOPHILS (test code = 713-8) 3.4 % BASOPHILS (test code = 706-2) 0.6 % BLASTS (test code = 709-6) DNR % NUCLEATED RBC (test code = 55586-6) DNR /100WBC [facility] (INCLUDES DIFF/PLT)2019-06-20 00:00:00* Test Item Value Reference [...] cells/uL ABSOLUTE BAND NEUTROPHILS (test code = 84364-6) DNR cells/uL ABSOLUTE METAMYELOCYTES (test code = 17219-8) DNR cells/uL ABSOLUTE MYELOCYTES (test code = 24641-4) DNR cells/uL ABSOLUTE PROMYELOCYTES (test code = 86557-5) DNR cells/uL ABSOLUTE LYMPHOCYTES (test code = 731-0) 2290 cells/uL ABSOLUTE MONOCYTES (test code = 742-7) 524 cells/uL ABSOLUTE EOSINOPHILS (test code = 711-2) 364 cells/uL ABSOLUTE BASOPHILS (test code = 704-7) 64 cells/uL ABSOLUTE BLASTS (test code = 20718-6) DNR cells/uL ABSOLUTE NUCLEATED RBC (test code = 92830-5) DNR cells/uL NEUTROPHILS (test code = 770-8) 69.7 % BAND NEUTROPHILS (test code = 764-1) DNR % METAMYELOCYTES (test code = 740-1) DNR % MYELOCYTES (test code = 749-2) DNR % PROMYELOCYTES (test code = 783-1) DNR % LYMPHOCYTES (test code = 736-9) 21.4 % REACTIVE LYMPHOCYTES (test code = 39283-5) DNR % MONOCYTES (test code = 5905-5) 4.9 % EOSINOPHILS (test code = 713-8) 3.4 % BASOPHILS (test code = 706-2) 0.6 % BLASTS (test code = 709-6) DNR % NUCLEATED RBC (test code = 61098-5) DNR /100WBC COMMENT(S) (test code = 8251-1) LIPID PANEL (REFL)2019-06-20 00:00:00* Test Item Value Reference Range Interpretation Comme nts CHOLESTEROL, TOTAL (test cod e = 2093-3) 192 mg/dL HDL CHOLESTEROL (test code = 2085-9) 51 mg/dL TRIGLYCERIDES (test code = 2571-8) 221 mg/dL LDL-CHOLESTEROL (test code = 86220-6) 108 mg/dL(calc) CHOL/HDLC RATIO (test code = 9830-1) 3.8 (calc) NON HDL CHOLESTEROL (test code = 95949-0) 141 mg/dL(calc) COMPREHENSIVE METABOLIC [id number] 00:00:00* Test Item Value Reference Range Interpretation Comme nts GLUCOSE (test code = 2345-7) 194 mg/dL UREA NITROGEN (BUN) (test code = 3094-0) 10 mg/dL CREATININE (test code = 2160-0) 0.61 mg/dL eGFR NON-AFR. BURKINAN (test code = 27135-1) 116 mL/min/1.73m2 eGFR (test code = 77285-6) 134 mL/min/1.73m2 BUN/CREATININE RATIO (test code = 3097-3) NOT APPLICABLE (calc) SODIUM (test code = 2951-2) 135 mmol/L POTASSIUM (test code = 2823-3) 4.0 mmol/L CHLORIDE (test code = 5-0) 97 mmol/L CARBON DIOXIDE (test code = 2027-9) 26 mmol/L CALCIUM (test code = 57223-4) 9.5 mg/dL PROTEIN, TOTAL (test code = 2885-2) 6.7 g/dL ALBUMIN (test code = 1751-7) 4.0 g/dL GLOBULIN (test code = 33631-7) 2.7 g/dL(calc) ALBUMIN/GLOBULIN RATIO (test code = 1759-0) 1.5 (calc) BILIRUBIN, TOTAL (test code = 1975-2) 0.4 mg/dL ALKALINE PHOSPHATASE (test code = 6768-6) 76 U/L AST (test code = 1920-8) 35 U/L ALT (test code = 1742-6) 39 U/L [id number] 00:00:00* Test Item Value Reference Range Interpretation Comme [facility] TSH (test code = 3016-3) 2.16 mIU/L HEMOGLOBIN [id number] 00:00:00* Test Item Value Reference Range Interpretation Comme [facility] HEMOGLOBIN A1c (test code = 4548-4) 10.2 %oftotalHgb CBC (INCLUDES DIFF/PLT)2019-06-20 00:00:00* Test Item Value Reference Range Interpretation Comme [facility] WHITE BLOOD CELL COUNT (test code [...] cells/uL ABSOLUTE BAND NEUTROPHILS (test code = 86775-2) DNR cells/uL ABSOLUTE METAMYELOCYTES (test code = 88631-7) DNR cells/uL ABSOLUTE MYELOCYTES (test code = 02499-2) DNR cells/uL ABSOLUTE PROMYELOCYTES (test code = 33716-3) DNR cells/uL ABSOLUTE LYMPHOCYTES (test code = 731-0) 2290 cells/uL ABSOLUTE MONOCYTES (test code = 742-7) 524 cells/uL ABSOLUTE EOSINOPHILS (test code = 711-2) 364 cells/uL ABSOLUTE BASOPHILS (test code = 704-7) 64 cells/uL ABSOLUTE BLASTS (test code = 36587-3) DNR cells/uL ABSOLUTE NUCLEATED RBC (test code = 02296-1) DNR cells/uL NEUTROPHILS (test code = 770-8) 69.7 % BAND NEUTROPHILS (test code = 764-1) DNR % METAMYELOCYTES (test code = 740-1) DNR % MYELOCYTES (test code = 749-2) DNR % PROMYELOCYTES (test code = 783-1) DNR % LYMPHOCYTES (test code = 736-9) 21.4 % REACTIVE LYMPHOCYTES (test code = 53227-7) DNR % MONOCYTES (test code = 5905-5) 4.9 % EOSINOPHILS (test code = 713-8) 3.4 % BASOPHILS (test code = 706-2) 0.6 % BLASTS (test code = 709-6) DNR % NUCLEATED RBC (test code = 89580-8) DNR /100WBC COMMENT(S) (test code = 8251-1) LIPID PANEL (REFL)2019-06-20 00:00:00* Test Item Value Reference Range Interpretation Comme nts CHOLESTEROL, TOTAL (test cod e = 2093-3) 192 mg/dL HDL CHOLESTEROL (test code = 2085-9) 51 mg/dL TRIGLYCERIDES (test code = 2571-8) 221 mg/dL LDL-CHOLESTEROL (test code = 67547-8) 108 mg/dL(calc) CHOL/HDLC RATIO (test code = 9830-1) 3.8 (calc) NON HDL CHOLESTEROL (test code = 93538-1) 141 mg/dL(calc) COMPREHENSIVE METABOLIC [id number] 00:00:00* Test Item Value Reference Range Interpretation Comme nts GLUCOSE (test code = 2345-7) 194 mg/dL UREA NITROGEN (BUN) (test code = 3094-0) 10 mg/dL CREATININE (test code = 2160-0) 0.61 mg/dL eGFR NON-AFR. BURKINAN (test code = 00260-2) 116 mL/min/1.73m2 eGFR (test code = 42750-2) 134 mL/min/1.73m2 BUN/CREATININE RATIO (test code = 3097-3) NOT APPLICABLE (calc) SODIUM (test code = 2951-2) 135 mmol/L POTASSIUM (test code = 2823-3) 4.0 mmol/L CHLORIDE (test code = 2075-0) 97 mmol/L CARBON DIOXIDE (test code = 2027-9) 26 mmol/L CALCIUM (test code = 38928-3) 9.5 mg/dL PROTEIN, TOTAL (test code = 2885-2) 6.7 g/dL ALBUMIN (test code = 1751-7) 4.0 g/dL GLOBULIN (test code = 43255-1) 2.7 g/dL(calc) ALBUMIN/GLOBULIN RATIO (test code = 1759-0) 1.5 (calc) BILIRUBIN, TOTAL (test code = 1975-2) 0.4 mg/dL ALKALINE PHOSPHATASE (test code = 6768-6) 76 U/L AST (test code = 1920-8) 35 U/L ALT (test code = 1742-6) 39 U/L [id number] 00:00:00* Test Item Value Reference Range Interpretation Comme nts TSH (test code = 3016-3) 2.16 mIU/L HEMOGLOBIN [id number] 00:00:00* Test Item Value Reference Range Interpretation Comme [facility] HEMOGLOBIN A1c (test code = 4548-4) 10.2 %oftotalHgb HEMOGLOBIN [id number] 00:00:00* Test Item Value Reference Range Interpretation Comme nts HEMOGLOBIN A1c (test code = 37881) 9.5 % Cosmo NievesLIPID [id number] 00:00:00* Test Item Value Reference Range Interpretation Comme nts CHOLESTEROL (test code = 2210) 208 MG/DL TRIGLYCERIDES (test code = 2232) 192 MG/DL HDL CHOLESTEROL (test code = 2220) 48 MG/DL CALC LDL CHOL (test code = 2237) 122 MG/DL RISK RATIO LDL/HDL (test cod e = 2238) 2.53 RATIO Cosmo NievesCOMPREHENSIVE METABOLIC [id number] 00:00:00* Test Item Value Reference Range Interpretation Comme nts GLUCOSE (test code = 2217) 236 MG/DL BUN (test code = 2208) 8 MG/DL CREATININE (test code = 2214) 0.67 MG/DL eGFR AMER. (test cod e = 59609) 130 ML/MIN/1.73 eGFR NON- AMER. (test code = 48584) 112 ML/MIN/1.73 CALC BUN/CREAT (test code = [...] (test code = 2219) 62 U/L Cosmo [id number] 00:00:00* Test Item Value Reference Range Interpretation Comme nts TSH, THIRD GENERATION (test code = 2821) 1.550 UIU/ML Cosmo NievesCBC W/AUTO [id number] 00:00:00* Test Item Value Reference Range Interpretation [...] code = 1015) 304 K/UL Cosmo NievesHEMOGLOBIN [id number] 00:00:00* Test Item Value Reference Range Interpretation Comme [facility] HEMOGLOBIN A1c (test code = 94314) 9.5 % Cosmo NievesLIPID [id number] 00:00:00* Test Item Value Reference Range Interpretation Comme nts CHOLESTEROL (test code = 2210) 208 MG/DL TRIGLYCERIDES (test code = 2232) 192 MG/DL HDL CHOLESTEROL (test code = 2220) 48 MG/DL CALC LDL CHOL (test code = 2237) 122 MG/DL RISK RATIO LDL/HDL (test cod e = 2238) 2.53 RATIO Cosmo NievesCOMPREHENSIVE METABOLIC [id number] 00:00:00* Test Item Value Reference Range Interpretation Comme nts GLUCOSE (test code = 2217) 236 MG/DL BUN (test code = 2208) 8 MG/DL CREATININE (test code = 2214) 0.67 MG/DL eGFR AMER. (test cod e = 62195) 130 ML/MIN/1.73 eGFR NON- AMER. (test code = 33467) 112 ML/MIN/1.73 CALC BUN/CREAT (test code = [...] (test code = 2219) 62 U/L Cosmo [id number] 00:00:00* Test Item Value Reference Range Interpretation Comme nts TSH, THIRD GENERATION (test code = 2821) 1.550 UIU/ML Cosmo NievesCBC W/AUTO [id number] 00:00:00* Test Item Value Reference Range Interpretation [...] code = 1015) 304 K/UL Cosmo NievesHEMOGLOBIN [id number] 00:00:00* Test Item Value Reference Range Interpretation Comme nts HEMOGLOBIN A1c (test code = 90364) 9.5 % Cosmo NievesLIPID [id number] 00:00:00* Test Item Value Reference Range Interpretation Comme nts CHOLESTEROL (test code = 2210) 208 MG/DL TRIGLYCERIDES (test code = 2232) 192 MG/DL HDL CHOLESTEROL (test code = 2220) 48 MG/DL CALC LDL CHOL (test code = 2237) 122 MG/DL RISK RATIO LDL/HDL (test cod e = 2238) 2.53 RATIO Cosmo NievesCOMPREHENSIVE METABOLIC [id number] 00:00:00* Test Item Value Reference Range Interpretation Comme nts GLUCOSE (test code = 2217) 236 MG/DL BUN (test code = 2208) 8 MG/DL CREATININE (test code = 2214) 0.67 MG/DL eGFR AMER. (test cod e = 25153) 130 ML/MIN/1.73 eGFR NON- AMER. (test code = 45615) 112 ML/MIN/1.73 CALC BUN/CREAT (test code = [...] (test code = 2219) 62 U/L Cosmo [id number] 00:00:00* Test Item Value Reference Range Interpretation Comme nts TSH, THIRD GENERATION (test code = 2821) 1.550 UIU/ML Cosmo NievesCBC W/AUTO [id number] 00:00:00* Test Item Value Reference Range Interpretation [...] (test code = 1015) 304 K/UL [facility] [id number] 00:00:00* Test Item Value Reference Range Interpretation [...] (test code = 1015) 304 K/UL HEMOGLOBIN [id number] 00:00:00* Test Item Value Reference Range Interpretation Comme nts HEMOGLOBIN A1c (test code = 92598) 9.5 % LIPID [id number] 00:00:00* Test Item Value Reference Range Interpretation Comme nts CHOLESTEROL (test code = 2210) 208 MG/DL TRIGLYCERIDES (test code = 2232) 192 MG/DL HDL CHOLESTEROL (test code = 2220) 48 MG/DL CALC LDL CHOL (test code = 2237) 122 MG/DL RISK RATIO LDL/HDL (test cod e = 2238) 2.53 RATIO COMPREHENSIVE METABOLIC [id number] 00:00:00* Test Item Value Reference Range Interpretation Comme nts GLUCOSE (test code = 2217) 236 MG/DL BUN (test code = 2208) 8 MG/DL CREATININE (test code = 2214) 0.67 MG/DL eGFR AMER. (test cod e = 55484) 130 ML/MIN/1.73 eGFR NON- AMER. (test code = 70663) 112 ML/MIN/1.73 CALC BUN/CREAT (test code = [...] ALT (test code = 2219) 62 U/L [id number] 00:00:00* Test Item Value Reference Range Interpretation Comme nts TSH, THIRD GENERATION (test code = 2821) 1.550 UIU/ML CBC W/AUTO [id number] 00:00:00* Test Item Value Reference Range Interpretation [...] (test code = 1015) 304 K/UL HEMOGLOBIN [id number] 00:00:00* Test Item Value Reference Range Interpretation Comme nts HEMOGLOBIN A1c (test code = 55752) 9.5 % LIPID [id number] 00:00:00* Test Item Value Reference Range Interpretation Comme nts CHOLESTEROL (test code = 2210) 208 MG/DL TRIGLYCERIDES (test code = 2232) 192 MG/DL HDL CHOLESTEROL (test code = 2220) 48 MG/DL CALC LDL CHOL (test code = 2237) 122 MG/DL RISK RATIO LDL/HDL (test cod e = 2238) 2.53 RATIO COMPREHENSIVE METABOLIC [id number] 00:00:00* Test Item Value Reference Range Interpretation Comme nts GLUCOSE (test code = 2217) 236 MG/DL BUN (test code = 2208) 8 MG/DL CREATININE (test code = 2214) 0.67 MG/DL eGFR AMER. (test cod e = 95382) 130 ML/MIN/1.73 eGFR NON- AMER. (test code = 81780) 112 ML/MIN/1.73 CALC BUN/CREAT (test code = [...] ALT (test code = 2219) 62 U/L [id number] 00:00:00* Test Item Value Reference Range Interpretation Comme nts TSH, THIRD GENERATION (test code = 2821) 1.550 UIU/ML LIPID [id number] 00:00:00* Test Item Value Reference Range Interpretation Comme nts CHOLESTEROL (test code = 2210) 209 MG/DL TRIGLYCERIDES (test code = 2232) 137 MG/DL HDL CHOLESTEROL (test code = 2220) 49 MG/DL CALC LDL CHOL (test code = 2237) 133 MG/DL RISK RATIO LDL/HDL (test cod e = 2238) 2.71 RATIO Cosmo F AustinCOMPREHENSIVE METABOLIC [id number] 00:00:00* Test Item Value Reference Range Interpretation Comme nts GLUCOSE (test code = 2217) 222 MG/DL BUN (test code = 2208) 10 MG/DL CREATININE (test code = 2214) 0.63 MG/DL eGFR AMER. (test cod e = 45252) 134 ML/MIN/1.73 eGFR NON- AMER. (test code = 83874) 115 ML/MIN/1.73 CALC BUN/CREAT (test code = 2235) 16 RATIO SODIUM (test code = 2231) 139 MEQ/L POTASSIUM (test code = 2228) 4.2 MEQ/L CHLORIDE (test code = 2215) 97 MEQ/L CARBON DIOXIDE (test code = 2206) 24 MEQ/L CALCIUM (test code = 2209) 9.2 MG/DL PROTEIN, TOTAL (test code = 222) 7.0 G/DL ALBUMIN (test code = 2201) 4.2 G/DL CALC GLOBULIN (test code = 2240) 2.8 G/DL CALC A/G RATIO (test code = 2234) 1.5 RATIO BILIRUBIN, TOTAL (test code = 2207) 0.5 MG/DL ALKALINE PHOSPHATASE (test code = 2204) 73 U/L AST (test code = 2218) 69 U/L ALT (test code = 2219) 48 U/L Cosmo [id number] 00:00:00* Test Item Value Reference Range Interpretation Comme nts TSH, THIRD GENERATION (test code = 2821) 2.380 UIU/ML Cosmo NievesLIPID [id number] 00:00:00* Test Item Value Reference Range Interpretation Comme nts CHOLESTEROL (test code = 2210) 209 MG/DL TRIGLYCERIDES (test code = 2232) 137 MG/DL HDL CHOLESTEROL (test code = 2220) 49 MG/DL CALC LDL CHOL (test code = 2237) 133 MG/DL RISK RATIO LDL/HDL (test cod e = 2238) 2.71 RATIO Cosmo NievesCOMPREHENSIVE METABOLIC [id number] 00:00:00* Test Item Value Reference Range Interpretation Comme nts GLUCOSE (test code = 2217) 222 MG/DL BUN (test code = 2208) 10 MG/DL CREATININE (test code = 2214) 0.63 MG/DL eGFR AMER. (test cod e = 57471) 134 ML/MIN/1.73 eGFR NON- AMER. (test code = 38277) 115 ML/MIN/1.73 CALC BUN/CREAT (test code = [...] (test code = 2219) 48 U/L Cosmo Martin [id number] 00:00:00* Test Item Value Reference Range Interpretation Comme nts TSH, THIRD GENERATION (test code = 2821) 2.380 UIU/ML Cosmo Martin [place]LIPID [id number] 00:00:00* Test Item Value Reference Range Interpretation Comme nts CHOLESTEROL (test code = 2210) 209 MG/DL TRIGLYCERIDES (test code = 2232) 137 MG/DL HDL CHOLESTEROL (test code = 2220) 49 MG/DL CALC LDL CHOL (test code = 2237) 133 MG/DL RISK RATIO LDL/HDL (test cod e = 2238) 2.71 RATIO Cosmo NievesCOMPREHENSIVE METABOLIC [id number] 00:00:00* Test Item Value Reference Range Interpretation Comme nts GLUCOSE (test code = 2217) 222 MG/DL BUN (test code = 2208) 10 MG/DL CREATININE (test code = 2214) 0.63 MG/DL eGFR AMER. (test cod e = 42212) 134 ML/MIN/1.73 eGFR NON- AMER. (test code = 02024) 115 ML/MIN/1.73 CALC BUN/CREAT (test code = [...] (test code = 2219) 48 U/L Cosmo [id number] 00:00:00* Test Item Value Reference Range Interpretation Comme nts TSH, THIRD GENERATION (test code = 2821) 2.380 UIU/ML Cosmo Martin MorriltonLIPID [id number] 00:00:00* Test Item Value Reference Range Interpretation Comme nts CHOLESTEROL (test code = 2210) 209 MG/DL TRIGLYCERIDES (test code = 2232) 137 MG/DL HDL CHOLESTEROL (test code = 2220) 49 MG/DL CALC LDL CHOL (test code = 2237) 133 MG/DL RISK RATIO LDL/HDL (test cod e = 2238) 2.71 RATIO COMPREHENSIVE METABOLIC [id number] 00:00:00* Test Item Value Reference Range Interpretation Comme nts GLUCOSE (test code = 2217) 222 MG/DL BUN (test code = 2208) 10 MG/DL CREATININE (test code = 2214) 0.63 MG/DL eGFR AMER. (test cod e = 15583) 134 ML/MIN/1.73 eGFR NON- AMER. (test code = 31218) 115 ML/MIN/1.73 CALC BUN/CREAT (test code = [...] ALT (test code = 2219) 48 U/L [id number] 00:00:00* Test Item Value Reference Range Interpretation Comme nts TSH, THIRD GENERATION (test code = 2821) 2.380 UIU/ML LIPID [id number] 00:00:00* Test Item Value Reference Range Interpretation Comme nts CHOLESTEROL (test code = 2210) 209 MG/DL TRIGLYCERIDES (test code = 2232) 137 MG/DL HDL CHOLESTEROL (test code = 2220) 49 MG/DL CALC LDL CHOL (test code = 2237) 133 MG/DL RISK RATIO LDL/HDL (test cod e = 2238) 2.71 RATIO COMPREHENSIVE METABOLIC [id number] 00:00:00* Test Item Value Reference Range Interpretation Comme nts GLUCOSE (test code = 2217) 222 MG/DL BUN (test code = 8) 10 MG/DL CREATININE (test code = 2214) 0.63 MG/DL eGFR AMER. (test cod e = 39843) 134 ML/MIN/1.73 eGFR NON- AMER. (test code = 05249) 115 ML/MIN/1.73 CALC BUN/CREAT (test code = [...] ALT (test code = 2219) 48 U/L [id number] 00:00:00* Test Item Value Reference Range Interpretation Comme nts TSH, THIRD GENERATION (test code = 2821) 2.380 UIU/ML HEMOGLOBIN [id number] 00:00:00* Test Item Value Reference Range Interpretation Comme nts HEMOGLOBIN A1c (test code = 15506) 9.9 % Cosmo Martni AustinHEMOGLOBIN [id number] 00:00:00* Test Item Value Reference Range Interpretation Comme nts HEMOGLOBIN A1c (test code = 07442) 9.9 % Cosmo Martin AustinHEMOGLOBIN [id number] 00:00:00* Test Item Value Reference Range Interpretation Comme nts HEMOGLOBIN A1c (test code = 06920) 9.9 % Cosmo Martin AustinHEMOGLOBIN [id number] 00:00:00* Test Item Value Reference Range Interpretation Comme nts HEMOGLOBIN A1c (test code = 17645) 9.9 % HEMOGLOBIN [id number] 00:00:00* Test Item Value Reference Range Interpretation Comme nts HEMOGLOBIN A1c (test code = 58410) 9.9 % HEMOGLOBIN [id number] 00:00:00* Test Item Value Reference Range Interpretation Comme nts HEMOGLOBIN A1c (test code = 80259) 9.5 % Cosmo Martin AustinHEMOGLOBIN [id number] 00:00:00* Test Item Value Reference Range Interpretation Comme nts HEMOGLOBIN A1c (test code = 89896) 9.5 % Cosmo Martin AustinHEMOGLOBIN [id number] 00:00:00* Test Item Value Reference Range Interpretation Comme nts HEMOGLOBIN A1c (test code = 98148) 9.5 % Cosmo F AustinHEMOGLOBIN [id number] 00:00:00* Test Item Value Reference Range Interpretation Comme nts HEMOGLOBIN A1c (test code = 59582) 9.5 % HEMOGLOBIN [id number] 00:00:00* Test Item Value Reference Range Interpretation Comme nts HEMOGLOBIN A1c (test code = 73130) 9.5 % LIPID [id number] 00:00:00* Test Item Value Reference Range Interpretation Comme nts CHOLESTEROL (test code = 2210) 195 MG/DL TRIGLYCERIDES (test code = 2232) 188 MG/DL HDL CHOLESTEROL (test code = 2220) 47 MG/DL CALC LDL CHOL (test code = 2237) 110 MG/DL RISK RATIO LDL/HDL (test cod e = 2238) 2.35 RATIO Cosmo [id number] 00:00:00* Test Item Value Reference Range Interpretation Comme nts TSH (test code = 2821) 2.920 UIU/ML Cosmo NievesCOMPREHENSIVE METABOLIC [id number] 00:00:00* Test Item Value Reference Range Interpretation Comme nts GLUCOSE (test code = 2217) 233 MG/DL BUN (test code = 2208) 11 MG/DL CREATININE (test code = 2214) 0.59 MG/DL eGFR AMER. (test cod e = 49703) 137 ML/MIN/1.73 eGFR NON- AMER. (test code = 98466) 118 ML/MIN/1.73 CALC BUN/CREAT (test code = [...] code = 2219) 49 U/L Cosmo NievesLIPID [id number] 00:00:00* Test Item Value Reference Range Interpretation Comme nts CHOLESTEROL (test code = 2210) 195 MG/DL TRIGLYCERIDES (test code = 2232) 188 MG/DL HDL CHOLESTEROL (test code = 2220) 47 MG/DL CALC LDL CHOL (test code = 2237) 110 MG/DL RISK RATIO LDL/HDL (test cod e = 2238) 2.35 RATIO Cosmo [id number] 00:00:00* Test Item Value Reference Range Interpretation Comme nts TSH (test code = 2821) 2.920 UIU/ML Cosmo NievesCOMPREHENSIVE METABOLIC [id number] 00:00:00* Test Item Value Reference Range Interpretation Comme nts GLUCOSE (test code = 2217) 233 MG/DL BUN (test code = 2208) 11 MG/DL CREATININE (test code = 2214) 0.59 MG/DL eGFR AMER. (test cod e = 47100) 137 ML/MIN/1.73 eGFR NON- AMER. (test code = 85846) 118 ML/MIN/1.73 CALC BUN/CREAT (test code = [...] code = 2219) 49 U/L Cosmo NievesLIPID [id number] 00:00:00* Test Item Value Reference Range Interpretation Comme nts CHOLESTEROL (test code = 2210) 195 MG/DL TRIGLYCERIDES (test code = 2232) 188 MG/DL HDL CHOLESTEROL (test code = 2220) 47 MG/DL CALC LDL CHOL (test code = 2237) 110 MG/DL RISK RATIO LDL/HDL (test cod e = 2238) 2.35 RATIO Cosmo Da [id number] 00:00:00* Test Item Value Reference Range Interpretation Comme nts TSH (test code = 2821) 2.920 UIU/ML Cosmo NievesCOMPREHENSIVE METABOLIC [id number] 00:00:00* Test Item Value Reference Range Interpretation Comme nts GLUCOSE (test code = 2217) 233 MG/DL BUN (test code = 2208) 11 MG/DL CREATININE (test code = 2214) 0.59 MG/DL eGFR AMER. (test cod e = 28186) 137 ML/MIN/1.73 eGFR NON- AMER. (test code = 89502) 118 ML/MIN/1.73 CALC BUN/CREAT (test code = [...] (test code = 2219) 49 U/L Cosmo NievesCOMPREHENSIVE METABOLIC [id number] 00:00:00* Test Item Value Reference Range Interpretation Comme nts GLUCOSE (test code = 2217) 233 MG/DL BUN (test code = 2208) 11 MG/DL CREATININE (test code = 2214) 0.59 MG/DL eGFR AMER. (test cod e = 99166) 137 ML/MIN/1.73 eGFR NON- AMER. (test code = 24441) 118 ML/MIN/1.73 CALC BUN/CREAT (test code = [...] (test code = 2219) 49 U/L LIPID [id number] 00:00:00* Test Item Value Reference Range Interpretation Comme nts CHOLESTEROL (test code = 2210) 195 MG/DL TRIGLYCERIDES (test code = 2232) 188 MG/DL HDL CHOLESTEROL (test code = 2220) 47 MG/DL CALC LDL CHOL (test code = 2237) 110 MG/DL RISK RATIO LDL/HDL (test cod e = 223) 2.35 RATIO [id number] 00:00:00* Test Item Value Reference Range Interpretation Comme nts TSH (test code = 2821) 2.920 UIU/ML COMPREHENSIVE METABOLIC [id number] 00:00:00* Test Item Value Reference Range Interpretation Comme nts GLUCOSE (test code = 2217) 233 MG/DL BUN (test code = 2208) 11 MG/DL CREATININE (test code = 2214) 0.59 MG/DL eGFR AMER. (test cod e = 92652) 137 ML/MIN/1.73 eGFR NON- AMER. (test code = 79032) 118 ML/MIN/1.73 CALC BUN/CREAT (test code = [...] (test code = 2219) 49 U/L LIPID [id number] 00:00:00* Test Item Value Reference Range Interpretation Comme nts CHOLESTEROL (test code = 2210) 195 MG/DL TRIGLYCERIDES (test code = 2232) 188 MG/DL HDL CHOLESTEROL (test code = 2220) 47 MG/DL CALC LDL CHOL (test code = 2237) 110 MG/DL RISK RATIO LDL/HDL (test cod e = 2238) 2.35 RATIO [id number] 00:00:00* Test Item Value Reference Range Interpretation Comme nts TSH (test code = 2821) 2.920 UIU/ML CBC W/AUTO [id number] 00:00:00* Test Item Value Reference Range Interpretation [...] = 1015) 259 K/UL Cosmo NievesCBC W/AUTO [id number] 00:00:00* Test Item Value Reference Range Interpretation [...] (test code = 1015) 259 K/UL Cosmo Martin [facility] W/AUTO [id number] 00:00:00* Test Item Value Reference Range Interpretation [...] (test code = 1015) 259 K/UL Cosmo Martin [facility] W/AUTO [id number] 00:00:00* Test Item Value Reference Range Interpretation [...] code = 1015) 259 K/UL CBC W/AUTO [id number] 00:00:00* Test Item Value Reference Range Interpretation [...] code = 1015) 259 K/UL COMPREHENSIVE METABOLIC [id number] 00:00:00* Test Item Value Reference Range Interpretation Comme nts GLUCOSE (test code = 2217) 184 MG/DL BUN (test code = 2208) 9 MG/DL CREATININE (test code = 2214) 0.74 MG/DL eGFR AMER. (test cod e = 54047) 122 ML/MIN/1.73 eGFR NON- AMER. (test code = 24571) 105 ML/MIN/1.73 CALC BUN/CREAT (test code = [...] ALT (test code = 2219) 53 U/L Cosmoisaias NievesCBC W/AUTO [id number] 00:00:00* Test Item Value Reference Range Interpretation [...] code = 1015) 256 K/UL Cosmo NievesHEMOGLOBIN [id number] 00:00:00* Test Item Value Reference Range Interpretation Comme parisa HEMOGLOBIN A1c (test code = 11227) 6.5 % Cosmo Martin [id number] 00:00:00* Test Item Value Reference Range Interpretation Comme nts TSH (test code = 2821) 1.820 UIU/ML Cosmo NievesCOMPREHENSIVE METABOLIC [id number] 00:00:00* Test Item Value Reference Range Interpretation Comme nts GLUCOSE (test code = 2217) 184 MG/DL BUN (test code = 2208) 9 MG/DL CREATININE (test code = 2214) 0.74 MG/DL eGFR AMER. (test cod e = 66557) 122 ML/MIN/1.73 eGFR NON- AMER. (test code = 19491) 105 ML/MIN/1.73 CALC BUN/CREAT (test code = [...] = 2219) 53 U/L Cosmo NievesCBC W/AUTO [id number] 00:00:00* Test Item Value Reference Range Interpretation [...] code = 1015) 256 K/UL Cosmo NievesHEMOGLOBIN [id number] 00:00:00* Test Item Value Reference Range Interpretation Comme parisa HEMOGLOBIN A1c (test code = 98052) 6.5 % Cosmo [id number] 00:00:00* Test Item Value Reference Range Interpretation Comme nts TSH (test code = 2821) 1.820 UIU/ML Cosmo NievesCOMPREHENSIVE METABOLIC [id number] 00:00:00* Test Item Value Reference Range Interpretation Comme nts GLUCOSE (test code = 2217) 184 MG/DL BUN (test code = 2208) 9 MG/DL CREATININE (test code = 2214) 0.74 MG/DL eGFR AMER. (test cod e = 20944) 122 ML/MIN/1.73 eGFR NON- AMER. (test code = 12101) 105 ML/MIN/1.73 CALC BUN/CREAT (test code = [...] = 2219) 53 U/L Cosmo NievesCBC W/AUTO [id number] 00:00:00* Test Item Value Reference Range Interpretation [...] code = 1015) 256 K/UL Cosmo NievesHEMOGLOBIN [id number] 00:00:00* Test Item Value Reference Range Interpretation Comme nts HEMOGLOBIN A1c (test code = 26727) 6.5 % Cosmo [id number] 00:00:00* Test Item Value Reference Range Interpretation Comme nts TSH (test code = 2821) 1.820 UIU/ML Cosmo NievesCOMPREHENSIVE METABOLIC [id number] 00:00:00* Test Item Value Reference Range Interpretation Comme nts GLUCOSE (test code = 2217) 184 MG/DL BUN (test code = 2208) 9 MG/DL CREATININE (test code = 2214) 0.74 MG/DL eGFR AMER. (test cod e = 38105) 122 ML/MIN/1.73 eGFR NON- AMER. (test code = 56485) 105 ML/MIN/1.73 CALC BUN/CREAT (test code = [...] code = 2219) 53 U/L CBC W/AUTO [id number] 00:00:00* Test Item Value Reference Range Interpretation [...] (test code = 1015) 256 K/UL HEMOGLOBIN [id number] 00:00:00* Test Item Value Reference Range Interpretation Comme nts HEMOGLOBIN A1c (test code = 41858) 6.5 % [id number] 00:00:00* Test Item Value Reference Range Interpretation Comme nts TSH (test code = 2821) 1.820 UIU/ML COMPREHENSIVE METABOLIC [id number] 00:00:00* Test Item Value Reference Range Interpretation Comme nts GLUCOSE (test code = 2217) 184 MG/DL BUN (test code = 2208) 9 MG/DL CREATININE (test code = 2214) 0.74 MG/DL eGFR AMER. (test cod e = 44557) 122 ML/MIN/1.73 eGFR NON- AMER. (test code = 17106) 105 ML/MIN/1.73 CALC BUN/CREAT (test code = [...] code = 2219) 53 U/L CBC W/AUTO [id number] 00:00:00* Test Item Value Reference Range Interpretation [...] (test code = 1015) 256 K/UL HEMOGLOBIN [id number] 00:00:00* Test Item Value Reference Range Interpretation Comme nts HEMOGLOBIN A1c (test code = 87908) 6.5 % [id number] 00:00:00* Test Item Value Reference Range Interpretation Comme nts TSH (test code = 2821) 1.820 UIU/ML ACUTE HEPATITIS [id number] 00:00:00* Test Item Value Reference Range Interpretation Comme nts HEPATITIS A IgM (test code = 15020) NON-REACTIVE HEPATITIS B CORE IgM (test c ode = 4644) NON-REACTIVE HEPATITIS B SURF AG (test co de = 2739) NON-REACTIVE HEPATITIS C ANTIBODY (test c ode = 4675) NON-REACTIVE INTERPRETATION HEPATITIS A: (test code = 2552) (NOTE) INTERPRETATION HEPATITIS B: (test code = 69356) (NOTE) INTERPRETATION HEPATITIS C: (test code = 82963) (NOTE) Cosmo NievesACUTE HEPATITIS [id number] 00:00:00* Test Item Value Reference Range Interpretation Comme nts HEPATITIS A IgM (test code = 92515) NON-REACTIVE HEPATITIS B CORE IgM (test c ode = 4644) NON-REACTIVE HEPATITIS B SURF AG (test co de = 2739) NON-REACTIVE HEPATITIS C ANTIBODY (test c ode = 4675) NON-REACTIVE INTERPRETATION HEPATITIS A: (test code = 2552) (NOTE) INTERPRETATION HEPATITIS B: (test code = 98095) (NOTE) INTERPRETATION HEPATITIS C: (test code = 40057) (NOTE) Cosmo NievesACUTE HEPATITIS [id number] 00:00:00* Test Item Value Reference Range Interpretation Comme nts HEPATITIS A IgM (test code = 52990) NON-REACTIVE HEPATITIS B CORE IgM (test c ode = 4644) NON-REACTIVE HEPATITIS B SURF AG (test co de = 2739) NON-REACTIVE HEPATITIS C ANTIBODY (test c ode = 4675) NON-REACTIVE INTERPRETATION HEPATITIS A: (test code = 2552) (NOTE) INTERPRETATION HEPATITIS B: (test code = 32254) (NOTE) INTERPRETATION HEPATITIS C: (test code = 28770) (NOTE) Cosmo NievesACUTE HEPATITIS [id number] 00:00:00* Test Item Value Reference Range Interpretation Comme nts HEPATITIS A IgM (test code = 75361) NON-REACTIVE HEPATITIS B CORE IgM (test c ode = 4644) NON-REACTIVE HEPATITIS B SURF AG (test co de = 2739) NON-REACTIVE HEPATITIS C ANTIBODY (test c ode = 4675) NON-REACTIVE INTERPRETATION HEPATITIS A: (test code = 2552) (NOTE) INTERPRETATION HEPATITIS B: (test code = 08732) (NOTE) INTERPRETATION HEPATITIS C: (test code = 41816) (NOTE) ACUTE HEPATITIS [id number] 00:00:00* Test Item Value Reference Range Interpretation Comme nts HEPATITIS A IgM (test code = 73380) NON-REACTIVE HEPATITIS B CORE IgM (test c ode = 4644) NON-REACTIVE HEPATITIS B SURF AG (test co de = 2739) NON-REACTIVE HEPATITIS C ANTIBODY (test c ode = 4675) NON-REACTIVE INTERPRETATION HEPATITIS A: (test code = 2552) (NOTE) INTERPRETATION HEPATITIS B: (test code = 89922) (NOTE) INTERPRETATION HEPATITIS C: (test code = 80672) (NOTE) [id number] 00:00:00* Test Item Value Reference Range Interpretation Comme nts TSH (test code = 2821) 3.4 UIU/ML Cosmo NievesCOMPREHENSIVE METABOLIC [id number] 00:00:00* Test Item Value Reference Range Interpretation Comme nts GLUCOSE (test code = 2217) 146 MG/DL BUN (test code = 2208) 10 MG/DL CREATININE (test code = 2214) 0.77 MG/DL eGFR AMER. (test cod e = 15083) 116 ML/MIN/1.73 eGFR NON- AMER. (test code = 94801) 100 ML/MIN/1.73 CALC BUN/CREAT (test code = [...] code = 2219) 63 U/L Cosmo Martin [id number] 00:00:00* Test Item Value Reference Range Interpretation Comme nts TSH (test code = 2821) 3.4 UIU/ML Cosmo NievesCOMPREHENSIVE METABOLIC [id number] 00:00:00* Test Item Value Reference Range Interpretation Comme nts GLUCOSE (test code = 2217) 146 MG/DL BUN (test code = 2208) 10 MG/DL CREATININE (test code = 2214) 0.77 MG/DL eGFR AMER. (test cod e = 73965) 116 ML/MIN/1.73 eGFR NON- AMER. (test code = 74931) 100 ML/MIN/1.73 CALC BUN/CREAT (test code = [...] code = 2219) 63 U/L Cosmo Martin [id number] 00:00:00* Test Item Value Reference Range Interpretation Comme nts TSH (test code = 2821) 3.4 UIU/ML Cosmo NievesCOMPREHENSIVE METABOLIC [id number] 00:00:00* Test Item Value Reference Range Interpretation Comme nts GLUCOSE (test code = 2217) 146 MG/DL BUN (test code = 2208) 10 MG/DL CREATININE (test code = 2214) 0.77 MG/DL eGFR AMER. (test cod e = 56444) 116 ML/MIN/1.73 eGFR NON- AMER. (test code = 17115) 100 ML/MIN/1.73 CALC BUN/CREAT (test code = [...] = 2219) 63 U/L Cosmo NievesCOMPREHENSIVE METABOLIC [id number] 00:00:00* Test Item Value Reference Range Interpretation Comme nts GLUCOSE (test code = 2217) 146 MG/DL BUN (test code = 2208) 10 MG/DL CREATININE (test code = 2214) 0.77 MG/DL eGFR AMER. (test cod e = 36115) 116 ML/MIN/1.73 eGFR NON- AMER. (test code = 23099) 100 ML/MIN/1.73 CALC BUN/CREAT (test code = [...] ALT (test code = 2219) 63 U/L [id number] 00:00:00* Test Item Value Reference Range Interpretation Comme nts TSH (test code = 2821) 3.4 UIU/ML COMPREHENSIVE METABOLIC [id number] 00:00:00* Test Item Value Reference Range Interpretation Comme nts GLUCOSE (test code = 2217) 146 MG/DL BUN (test code = 2208) 10 MG/DL CREATININE (test code = 2214) 0.77 MG/DL eGFR AMER. (test cod e = 04386) 116 ML/MIN/1.73 eGFR NON- AMER. (test code = 65512) 100 ML/MIN/1.73 CALC BUN/CREAT (test code = [...] ALT (test code = 2219) 63 U/L [id number] 00:00:00* Test Item Value Reference Range Interpretation Comme nts TSH (test code = 2821) 3.4 UIU/ML HEMOGLOBIN [id number] 00:00:00* Test Item Value Reference Range Interpretation Comme parisa HEMOGLOBIN A1c (test code = 68946) 7.9 % Cosmo NievesHEMOGLOBIN [id number] 00:00:00* Test Item Value Reference Range Interpretation Comme nts HEMOGLOBIN A1c (test code = 07785) 7.9 % Cosmo NievesHEMOGLOBIN [id number] 00:00:00* Test Item Value Reference Range Interpretation Comme nts HEMOGLOBIN A1c (test code = 04656) 7.9 % Cosmo NievesHEMOGLOBIN [id number] 00:00:00* Test Item Value Reference Range Interpretation Comme nts HEMOGLOBIN A1c (test code = 19621) 7.9 % HEMOGLOBIN [id number] 00:00:00* Test Item Value Reference Range Interpretation Comme nts HEMOGLOBIN A1c (test code = 78511) 7.9 % LIPID [id number] 00:00:00* Test Item Value Reference Range Interpretation Comme nts CHOLESTEROL (test code = 2210) 171 MG/DL TRIGLYCERIDES (test code = 2232) 137 MG/DL HDL CHOLESTEROL (test code = 2220) 53 MG/DL CALC LDL CHOL (test code = 2237) 91 MG/DL RISK RATIO LDL/HDL (test cod e = 2238) 1.71 RATIO Cosmo [id number] 00:00:00* Test Item Value Reference Range Interpretation Comme parisa TSH (test code = 2821) 5.7 UIU/ML Cosmo NievesCOMPREHENSIVE METABOLIC [id number] 00:00:00* Test Item Value Reference Range Interpretation Comme nts GLUCOSE (test code = 2217) 156 MG/DL BUN (test code = 2208) 10 MG/DL CREATININE (test code = 2214) 0.80 MG/DL eGFR AMER. (test cod e = 69902) 111 ML/MIN/1.73 eGFR NON- AMER. (test code = 68201) 96 ML/MIN/1.73 CALC BUN/CREAT (test code = [...] code = 2219) 60 U/L Cosmo NievesLIPID [id number] 00:00:00* Test Item Value Reference Range Interpretation Comme nts CHOLESTEROL (test code = 2210) 171 MG/DL TRIGLYCERIDES (test code = 2232) 137 MG/DL HDL CHOLESTEROL (test code = 2220) 53 MG/DL CALC LDL CHOL (test code = 2237) 91 MG/DL RISK RATIO LDL/HDL (test cod e = 223) 1.71 RATIO Cosmo [id number] 00:00:00* Test Item Value Reference Range Interpretation Comme nts TSH (test code = 2821) 5.7 UIU/ML Cosmo NievesCOMPREHENSIVE METABOLIC [id number] 00:00:00* Test Item Value Reference Range Interpretation Comme nts GLUCOSE (test code = 2217) 156 MG/DL BUN (test code = 2208) 10 MG/DL CREATININE (test code = 2214) 0.80 MG/DL eGFR AMER. (test cod e = 93759) 111 ML/MIN/1.73 eGFR NON- AMER. (test code = 10186) 96 ML/MIN/1.73 CALC BUN/CREAT (test code = [...] code = 2219) 60 U/L Cosmo NievesLIPID [id number] 00:00:00* Test Item Value Reference Range Interpretation Comme nts CHOLESTEROL (test code = 2210) 171 MG/DL TRIGLYCERIDES (test code = 2232) 137 MG/DL HDL CHOLESTEROL (test code = 2220) 53 MG/DL CALC LDL CHOL (test code = 2237) 91 MG/DL RISK RATIO LDL/HDL (test cod e = 2238) 1.71 RATIO Cosmo [id number] 00:00:00* Test Item Value Reference Range Interpretation Comme nts TSH (test code = 2821) 5.7 UIU/ML Cosmo NievesCOMPREHENSIVE METABOLIC [id number] 00:00:00* Test Item Value Reference Range Interpretation Comme nts GLUCOSE (test code = 2217) 156 MG/DL BUN (test code = 2208) 10 MG/DL CREATININE (test code = 2214) 0.80 MG/DL eGFR AMER. (test cod e = 36823) 111 ML/MIN/1.73 eGFR NON- AMER. (test code = 53260) 96 ML/MIN/1.73 CALC BUN/CREAT (test code = [...] = 2219) 60 U/L Cosmo NievesCOMPREHENSIVE METABOLIC [id number] 00:00:00* Test Item Value Reference Range Interpretation Comme nts GLUCOSE (test code = 2217) 156 MG/DL BUN (test code = 2208) 10 MG/DL CREATININE (test code = 2214) 0.80 MG/DL eGFR AMER. (test cod e = 80380) 111 ML/MIN/1.73 eGFR NON- AMER. (test code = 44732) 96 ML/MIN/1.73 CALC BUN/CREAT (test code = [...] (test code = 2219) 60 U/L LIPID [id number] 00:00:00* Test Item Value Reference Range Interpretation Comme nts CHOLESTEROL (test code = 2210) 171 MG/DL TRIGLYCERIDES (test code = 2232) 137 MG/DL HDL CHOLESTEROL (test code = 2220) 53 MG/DL CALC LDL CHOL (test code = 2237) 91 MG/DL RISK RATIO LDL/HDL (test cod e = 2238) 1.71 RATIO [id number] 00:00:00* Test Item Value Reference Range Interpretation Comme nts TSH (test code = 2821) 5.7 UIU/ML COMPREHENSIVE METABOLIC [id number] 00:00:00* Test Item Value Reference Range Interpretation Comme nts GLUCOSE (test code = 2217) 156 MG/DL BUN (test code = 2208) 10 MG/DL CREATININE (test code = 2214) 0.80 MG/DL eGFR AMER. (test cod e = 32804) 111 ML/MIN/1.73 eGFR NON- AMER. (test code = 01862) 96 ML/MIN/1.73 CALC BUN/CREAT (test code = [...] (test code = 2219) 60 U/L LIPID [id number] 00:00:00* Test Item Value Reference Range Interpretation Comme nts CHOLESTEROL (test code = 2210) 171 MG/DL TRIGLYCERIDES (test code = 2232) 137 MG/DL HDL CHOLESTEROL (test code = 2220) 53 MG/DL CALC LDL CHOL (test code = 2237) 91 MG/DL RISK RATIO LDL/HDL (test cod e = 2238) 1.71 RATIO [id number] 00:00:00* Test Item Value Reference Range Interpretation Comme nts TSH (test code = 2821) 5.7 UIU/ML CBC W/AUTO [id number] 00:00:00* Test Item Value Reference Range Interpretation [...] code = 1015) 250 K/UL Cosmo Martin AustinHEMOGLOBIN [id number] 00:00:00* Test Item Value Reference Range Interpretation Comme nts HEMOGLOBIN A1c (test code = 53755) 7.1 % Cosmo Martin AustinCBC W/AUTO [id number] 00:00:00* Test Item Value Reference Range Interpretation [...] code = 1015) 250 K/UL Cosmo Martin AustinHEMOGLOBIN [id number] 00:00:00* Test Item Value Reference Range Interpretation Comme nts HEMOGLOBIN A1c (test code = 22665) 7.1 % Cosmo Martin AustinCBC W/AUTO [id number] 00:00:00* Test Item Value Reference Range Interpretation [...] code = 1015) 250 K/UL Cosmo NievesHEMOGLOBIN [id number] 00:00:00* Test Item Value Reference Range Interpretation Comme nts HEMOGLOBIN A1c (test code = 26316) 7.1 % Cosmo Martin AustinCBC W/AUTO [id number] 00:00:00* Test Item Value Reference Range Interpretation [...] (test code = 1015) 250 K/UL HEMOGLOBIN [id number] 00:00:00* Test Item Value Reference Range Interpretation Comme nts HEMOGLOBIN A1c (test code = 82230) 7.1 % CBC W/AUTO [id number] 00:00:00* Test Item Value Reference Range Interpretation [...] (test code = 1015) 250 K/UL HEMOGLOBIN [id number] 00:00:00* Test Item Value Reference Range Interpretation Comme nts HEMOGLOBIN A1c (test code = 38846) 7.1 % ACUTE HEPATITIS [id number] 00:00:00* Test Item Value Reference Range Interpretation Comme nts HEPATITIS A IgM (test code = 93819) NON-REACTIVE HEPATITIS B CORE IgM (test c ode = 4644) NON-REACTIVE HEPATITIS B SURF AG (test co de = 2739) NON-REACTIVE HEPATITIS C ANTIBODY (test c ode = 4675) NON-REACTIVE INTERPRETATION HEPATITIS A: (test code = 2552) (NOTE) INTERPRETATION HEPATITIS B: (test code = 16500) (NOTE) INTERPRETATION HEPATITIS C: (test code = 78700) (NOTE) Cosmo NievesACUTE HEPATITIS [id number] 00:00:00* Test Item Value Reference Range Interpretation Comme nts HEPATITIS A IgM (test code = 16624) NON-REACTIVE HEPATITIS B CORE IgM (test c ode = 4644) NON-REACTIVE HEPATITIS B SURF AG (test co de = 2739) NON-REACTIVE HEPATITIS C ANTIBODY (test c ode = 4675) NON-REACTIVE INTERPRETATION HEPATITIS A: (test code = 2552) (NOTE) INTERPRETATION HEPATITIS B: (test code = 28851) (NOTE) INTERPRETATION HEPATITIS C: (test code = 62526) (NOTE) Cosmo NievesACUTE HEPATITIS [id number] 00:00:00* Test Item Value Reference Range Interpretation Comme nts HEPATITIS A IgM (test code = 73531) NON-REACTIVE HEPATITIS B CORE IgM (test c ode = 4644) NON-REACTIVE HEPATITIS B SURF AG (test co de = 2739) NON-REACTIVE HEPATITIS C ANTIBODY (test c ode = 4675) NON-REACTIVE INTERPRETATION HEPATITIS A: (test code = 2552) (NOTE) INTERPRETATION HEPATITIS B: (test code = 75117) (NOTE) INTERPRETATION HEPATITIS C: (test code = 74153) (NOTE) Cosmo NievesACUTE HEPATITIS [id number] 00:00:00* Test Item Value Reference Range Interpretation Comme nts HEPATITIS A IgM (test code = 58354) NON-REACTIVE HEPATITIS B CORE IgM (test c ode = 4644) NON-REACTIVE HEPATITIS B SURF AG (test co de = 2739) NON-REACTIVE HEPATITIS C ANTIBODY (test c ode = 4675) NON-REACTIVE INTERPRETATION HEPATITIS A: (test code = 2552) (NOTE) INTERPRETATION HEPATITIS B: (test code = 39912) (NOTE) INTERPRETATION HEPATITIS C: (test code = 52618) (NOTE) ACUTE HEPATITIS [id number] 00:00:00* Test Item Value Reference Range Interpretation Comme nts HEPATITIS A IgM (test code = 21713) NON-REACTIVE HEPATITIS B CORE IgM (test c ode = 4644) NON-REACTIVE HEPATITIS B SURF AG (test co de = 2739) NON-REACTIVE HEPATITIS C ANTIBODY (test c ode = 4675) NON-REACTIVE INTERPRETATION HEPATITIS A: (test code = 2552) (NOTE) INTERPRETATION HEPATITIS B: (test code = 46570) (NOTE) INTERPRETATION HEPATITIS C: (test code = 75952) (NOTE) LIPID [id number] 00:00:00* Test Item Value Reference Range Interpretation Comme nts CHOLESTEROL (test code = 2210) 212 MG/DL TRIGLYCERIDES (test code = 2232) 120 MG/DL HDL CHOLESTEROL (test code = 2220) 48 MG/DL CALC LDL CHOL (test code = 2237) 140 MG/DL RISK RATIO LDL/HDL (test cod e = 2238) 2.92 RATIO Cosmo F AustinCOMPREHENSIVE METABOLIC [id number] 00:00:00* Test Item Value Reference Range Interpretation Comme nts GLUCOSE (test code = 2217) 175 MG/DL BUN (test code = 2208) 7 MG/DL CREATININE (test code = 2214) 0.76 MG/DL eGFR AMER. (test cod e = 82941) 119 ML/MIN/1.73 eGFR NON- AMER. (test code = 83271) 102 ML/MIN/1.73 CALC BUN/CREAT (test code = [...] code = 2219) 42 U/L Cosmo NievesLIPID [id number] 00:00:00* Test Item Value Reference Range Interpretation Comme nts CHOLESTEROL (test code = 2210) 212 MG/DL TRIGLYCERIDES (test code = 2232) 120 MG/DL HDL CHOLESTEROL (test code = 2220) 48 MG/DL CALC LDL CHOL (test code = 2237) 140 MG/DL RISK RATIO LDL/HDL (test cod e = 2238) 2.92 RATIO Cosmo NievesCOMPREHENSIVE METABOLIC [id number] 00:00:00* Test Item Value Reference Range Interpretation Comme nts GLUCOSE (test code = 2217) 175 MG/DL BUN (test code = 2208) 7 MG/DL CREATININE (test code = 2214) 0.76 MG/DL eGFR AMER. (test cod e = 12734) 119 ML/MIN/1.73 eGFR NON- AMER. (test code = 94179) 102 ML/MIN/1.73 CALC BUN/CREAT (test code = [...] code = 2219) 42 U/L Cosmo NievesLIPID [id number] 00:00:00* Test Item Value Reference Range Interpretation Comme nts CHOLESTEROL (test code = 2210) 212 MG/DL TRIGLYCERIDES (test code = 2232) 120 MG/DL HDL CHOLESTEROL (test code = 2220) 48 MG/DL CALC LDL CHOL (test code = 2237) 140 MG/DL RISK RATIO LDL/HDL (test cod e = 2238) 2.92 RATIO Cosmo NievesCOMPREHENSIVE METABOLIC [id number] 00:00:00* Test Item Value Reference Range Interpretation Comme nts GLUCOSE (test code = 2217) 175 MG/DL BUN (test code = 2208) 7 MG/DL CREATININE (test code = 2214) 0.76 MG/DL eGFR AMER. (test cod e = 66042) 119 ML/MIN/1.73 eGFR NON- AMER. (test code = 62527) 102 ML/MIN/1.73 CALC BUN/CREAT (test code = [...] (test code = 2219) 42 U/L Cosmo NievesCOMPREHENSIVE METABOLIC [id number] 00:00:00* Test Item Value Reference Range Interpretation Comme nts GLUCOSE (test code = 2217) 175 MG/DL BUN (test code = 2208) 7 MG/DL CREATININE (test code = 2214) 0.76 MG/DL eGFR AMER. (test cod e = 40274) 119 ML/MIN/1.73 eGFR NON- AMER. (test code = 51258) 102 ML/MIN/1.73 CALC BUN/CREAT (test code = [...] (test code = 2219) 42 U/L LIPID [id number] 00:00:00* Test Item Value Reference Range Interpretation Comme nts CHOLESTEROL (test code = 2210) 212 MG/DL TRIGLYCERIDES (test code = 2232) 120 MG/DL HDL CHOLESTEROL (test code = 2220) 48 MG/DL CALC LDL CHOL (test code = 2237) 140 MG/DL RISK RATIO LDL/HDL (test cod e = 2238) 2.92 RATIO COMPREHENSIVE METABOLIC [id number] 00:00:00* Test Item Value Reference Range Interpretation Comme nts GLUCOSE (test code = 2217) 175 MG/DL BUN (test code = 2208) 7 MG/DL CREATININE (test code = 2214) 0.76 MG/DL eGFR AMER. (test cod e = 22415) 119 ML/MIN/1.73 eGFR NON- AMER. (test code = 54265) 102 ML/MIN/1.73 CALC BUN/CREAT (test code = [...] (test code = 2219) 42 U/L LIPID [id number] 00:00:00* Test Item Value Reference Range Interpretation Comme nts CHOLESTEROL (test code = 2210) 212 MG/DL TRIGLYCERIDES (test code = 2232) 120 MG/DL HDL CHOLESTEROL (test code = 2220) 48 MG/DL CALC LDL CHOL (test code = 2237) 140 MG/DL RISK RATIO LDL/HDL (test cod e = 2238) 2.92 RATIO [id number] 00:00:00* Test Item Value Reference Range Interpretation Comme nts TSH (test code = 2821) 4.7 UIU/ML Cosmo Martin [id number] 00:00:00* Test Item Value Reference Range Interpretation Comme nts TSH (test code = 2821) 4.7 UIU/ML Cosmo Martin [id number] 00:00:00* Test Item Value Reference Range Interpretation Comme nts TSH (test code = 2821) 4.7 UIU/ML Cosmo Martin [id number] 00:00:00* Test Item Value Reference Range Interpretation Comme nts TSH (test code = 2821) 4.7 UIU/ML [id number] 00:00:00* Test Item Value Reference Range Interpretation Comme nts TSH (test code = 2821) 4.7 UIU/ML CBC W/AUTO [id number] 00:00:00* Test Item Value Reference Range Interpretation [...] = 1015) 255 K/UL Cosmo Martin AustinHEMOGLOBIN [id number] 00:00:00* Test Item Value Reference Range Interpretation Comme nts HEMOGLOBIN A1c (test code = 13815) 7.9 % Cosmo Martin AustinCBC W/AUTO [id number] 00:00:00* Test Item Value Reference Range Interpretation [...] = 1015) 255 K/UL Cosmo Martin AustinHEMOGLOBIN [id number] 00:00:00* Test Item Value Reference Range Interpretation Comme nts HEMOGLOBIN A1c (test code = 42272) 7.9 % Cosmo Martin AustinCBC W/AUTO [id number] 00:00:00* Test Item Value Reference Range Interpretation [...] (test code = 1015) 255 K/UL Cosmo NievesHEMOGLOBIN [id number] 00:00:00* Test Item Value Reference Range Interpretation Comme nts HEMOGLOBIN A1c (test code = 52255) 7.9 % Cosmo NievesCBC W/AUTO [id number] 00:00:00* Test Item Value Reference Range Interpretation [...] (test code = 1015) 255 K/UL HEMOGLOBIN [id number] 00:00:00* Test Item Value Reference Range Interpretation Comme nts HEMOGLOBIN A1c (test code = 90603) 7.9 % CBC W/AUTO [id number] 00:00:00* Test Item Value Reference Range Interpretation [...] (test code = 1015) 255 K/UL HEMOGLOBIN [id number] 00:00:00* Test Item Value Reference Range Interpretation Comme nts HEMOGLOBIN A1c (test code = 42615) 7.9 % Notes Date/Time Note [facility]24-[facility] 00:[facility]:00 [facility]
[2024-10-21] MEDS ORDERED: PROMETHAZINE INJ 25 MG/ML AMP ONE ×2 (12:20→14:07)
[2024-10-21] MEDS ORDERED: FAMOTIDINE 20 MG/2 ML VIAL IV ONE (12:21)
[2024-10-21] MEDS ORDERED: NA CHLORIDE 0.9% 1,000 ML ONE ×2 (12:21→14:07)
[2024-10-21 12:43] LABS: Specific Gravity 1.027 (1.005-1.030)
[2024-10-21 12:46] LABS: Absolute Basophils 0.1 K/uL (0-0.5); Absolute Lymphocytes (CBC) 1.3 K/uL (0.7-4.9); Absolute Monocytes 0.4 K/uL (0.1-1.3); Absolute Neutrophil 12.9 K/uL (1.8-8.0); Basophils % 0.3 % (0-1.3); Eosinophils % 0.2 % (0-4.4); Hematocrit 41.1 % (36.0-45.0); Hemoglobin 13.2 g/dL (12.0-15.0); Lymphocytes % 8.7 % (15.3-44.8); MCH 25.5 pg (27.0-35.0); MCHC 32.1 g/dL (32.0-36.0); MCV 79.4 fL (80-100); Monocytes % 2.6 % (3.3-12.3); Neutrophils % 88.2 % (41.7-73.7); Nucleated Red Blood Cells % 0.1 % (0-0); Platelets 367 thou/uL (152-406); RBC Red Blood Cell Count 5.17 M/uL (3.86-4.86); Red Cell Distribution Width 17.9 % (12.1-15.2)
[2024-10-21 12:46] LABS: Specific Gravity 1.027 (1.005-1.030); Sqamous Epithelial <5 /HPF (None Seen); Urine Bacteria <20 /HPF (<20); Urine Bilirubin NEGATIVE (Negative); Urine Blood Negative (Negative); Urine Clarity Clear (Clear); Urine Color Light-Yellow (Yellow); Urine Culture Reflex Order NOT NEEDED; Urine Glucose 2+ (Negative); Urine Ketones 4+ (Over) (Negative); Urine Microscopic Reflex YN ORDER UMIC; Urine Nitrite NEGATIVE (Negative); Urine Protein TRACE (Negative); Urine RBC <5 /HPF (None Seen); Urine Urobilinogen Normal (Normal); Urine WBC <5 /HPF (<5); Urine pH 6.5 (5.0-7.0)
[2024-10-21 13:08] LABS: Albumin 3.3 g/dL (3.4-5.0); Albumin/Globulin Ratio 0.8 (1.1-1.8); Anion Gap 11.7 mEq/L (5.0-15.0); Bilirubin Total 0.7 mg/dL (0.2-1.0); Globulin 4.3 g/dL (2.3-3.5); Potassium 2.7 mEq/L (3.5-5.1); Protein, Total 7.6 g/dL (6.4-8.2); Troponin High Sensitivity 7.1 pg/mL (<58.9)
[2024-10-21 13:28] LABS: Differential Total Cells Count 100
[2024-10-21 13:29] LABS: Atypical Lymphocytes 1 %; Blood Morphology Comment NOT SEEN (NOT SEEN); Lymphocytes 4 % (15-42); Monocytes 7 % (0-10); Platelet Estimate ADEQ; Reactive Lymphocytes 2 %; Segmented Neutrophils 85 % (40-80)
--- NOTE | 2024-10-21 13:39 | EDPHYS ---
Physician Documentation [facility] Name: Katherine Yepez Age: 44 yrs Sex: Female : 1980 Arrival Date: 10/21/2024 Time: 11:27 Bed 19 Private MD: ED Physician Trace Izaguirre HPI: 10/21 13:33 This 44 yrs old Female presents to ER via EMS with complaints of Abdominal maricarmen Pain, Nausea/Vomiting/Diarrhea. 13:33 The patient presents to the emergency department with nausea, vomiting, abdominal pain, maricarmen of the epigastric area, right upper quadrant and left upper quadrant. Historical: - Allergies: 11:48 Bactrim; hb 11:48 GABAPENTIN; hb 11:48 Prednisone; hb 11:48 Toradol; hb 11:48 tramadol; hb 11:48 Ultracet; hb 11:48 Zofran; hb - Home Meds: 11:52 glipizide 10 mg Oral tablet 2 times per day [Active]; metformin 1,000 mg Oral tablet 2 hb times per day [Active]; levothyroxine 75 mcg capsule daily [Active]; hydrochlorothiazide 25 mg Oral tablet daily [Active]; tizanidine 4 mg oral tablet as needed [Active]; Januvia 100 mg oral tablet daily [Active]; metoprolol tartrate 100 mg Oral tablet 2 times per day [Active]; - PMHx: 11:48 diabetes mellitus; Hypertensive disorder; Hypothyroidism; hb - Immunization history:: Adult Immunizations up to date. - Infectious Disease History:: Denies. - Social history:: Smoking status: Patient denies any tobacco usage or history of. ROS: 13:34 Constitutional: Negative for fever, chills, and weight loss, Eyes: Negative for injury, maricarmen pain, redness, and discharge, ENT: Negative for injury, pain, and discharge, Neck: Negative for injury, pain, and swelling, Cardiovascular: Negative for chest pain, palpitations, and edema, Respiratory: Negative for shortness of breath, cough, wheezing, and pleuritic chest pain, Back: Negative for injury and pain, : Negative for injury, bleeding, discharge, and swelling, MS/Extremity: Negative for injury and deformity, Skin: Negative for injury, rash, and discoloration, Neuro: Negative for headache, weakness, numbness, tingling, and seizure, Psych: Negative for depression, anxiety, suicide ideation, homicidal ideation, and hallucinations, Allergy/Immunology: Negative for hives, rash, and allergies, Endocrine: Negative for neck swelling, polydipsia, polyuria, polyphagia, and marked weight changes, Hematologic/Lymphatic: Negative for swollen nodes, abnormal bleeding, and unusual bruising, 13:34 Abdomen/GI: Positive for abdominal pain, nausea and vomiting, abdominal cramps, abdominal distension, Exam: 13:34 Constitutional: This is a well developed, well nourished patient who is awake, alert, maricarmen and in no acute distress. Head/Face: Normocephalic, atraumatic. Eyes: Pupils equal round and reactive to light, extra-ocular motions intact. Lids and lashes normal. Conjunctiva and sclera are non-icteric and not injected. Cornea within normal limits. Periorbital areas with no swelling, redness, or edema. ENT: Nares patent. No nasal discharge, no septal abnormalities noted. Tympanic membranes are normal and external auditory canals are clear. Oropharynx with no redness, swelling, or masses, exudates, or evidence of obstruction, uvula midline. Mucous membranes moist. Neck: Trachea midline, no thyromegaly or masses palpated, and no cervical lymphadenopathy. Supple, full range of motion without nuchal rigidity, or vertebral point tenderness. No Meningismus. Chest/axilla: Normal chest wall appearance and motion. Nontender with no deformity. No lesions are appreciated. Cardiovascular: Regular rate and rhythm with a normal S1 and S2. No gallops, murmurs, or rubs. Normal PMI, no JVD. No pulse deficits. Respiratory: Lungs have equal breath sounds bilaterally, clear to auscultation and percussion. No rales, rhonchi or wheezes noted. No increased work of breathing, no retractions or nasal flaring. Back: No spinal tenderness. No costovertebral tenderness. Full range of motion. Skin: Warm, dry with normal turgor. Normal color with no rashes, no lesions, and no evidence of cellulitis. MS/ Extremity: Pulses equal, no cyanosis. Neurovascular intact. Full, normal range of motion., bilateral aka Neuro: Awake and alert, GCS 15, oriented to person, place, time, and situation. Cranial nerves II-XII grossly intact. Motor strength 5/5 in all extremities. Sensory grossly intact. Cerebellar exam normal. Normal gait. Psych: Awake, alert, with orientation to person, place and time. Behavior, mood, and affect are within normal limits. 13:34 Abdomen/GI: Inspection: distension, that is moderate, Bowel sounds: normal, Palpation: mild abdominal tenderness, moderate abdominal tenderness, in the epigastric area, right upper quadrant and left upper quadrant, Liver: no appreciated palpable abnormalities, Hernia: not appreciated, 14:05 ECG was reviewed by the Attending Physician. [facility] Vital Signs: 11:45 BP 197 / 85; Pulse 66; Resp 16; Temp 98.3; Pulse Ox 100% on R/A; Weight 154.22 kg; hb Height 5 ft. 11 in. ; Pain 8/10; 13:00 BP 180 / 80; Pulse 88; Resp 20; Pulse Ox 100% on R/A; kj2 14:00 BP 159 / 71; Pulse 78; Resp 18; Temp 98; Pulse Ox 100% ; kj2 11:45 Body Mass Index 47.42 (154.22 kg, 180.34 cm) hb 11:45 Pain Scale: Adult hb MDM: 11:49 Medical Screening Exam initiated maricarmen 13:36 Differential diagnosis: Nonspecific abd pain, gastritis, pancreatitis, appendicitis, maricarmen diverticulitis, viral gastroenteritis, gastroenteritis. Data reviewed: vital signs, nurses notes, EMS record, lab test result(s), EKG, radiologic studies, CT scan. Consideration of Admission/Observation Patient was admitted/placed on observation. Escalation of care including admission/observation considered. I considered the following discharge prescriptions or medication management in the emergency department Medications were administered in the Emergency Department. See MAR. Independent interpretation of the following test(s) in the Emergency Department EKG: See my EKG interpretation above. Test considered but Not performed: Ultrasound us abd neg. Care significantly affected by the following chronic conditions: Diabetes, Hypertension, Obesity. 10/21 11:51 Order name: CBC with Diff; Complete Time: 13:31 [facility] 10/21 11:51 Order name: CMP; Complete Time: 13:31 [facility] 10/21 11:51 Order name: Lipase; Complete Time: 13:31 [facility] 10/21 11:51 Order name: Test, Urine; Complete Time: 13: [facility] 10/21 11:51 Order name: Urinalysis w/ reflexes; Complete Time: 13:31 [facility] 10/21 11:51 Order name: Troponin High Sensitivity; Complete Time: 13:31 [facility] 10/21 12:49 Order name: Manual Differential; Complete Time: 13:31 EDMS 10/21 13:44 Order name: Phosphorus [facility] 10/21 15:47 Order name: CBC with Automated Diff EDMS 10/21 15:47 Order name: CBC with Automated Diff EDMS 10/21 15:47 Order name: Comprehensive Metabolic Panel [facility] 10/21 15:47 Order name: Comprehensive Metabolic Panel [facility] 10/21 15:47 Order name: Hemoglobin A1c [facility] 10/21 15:48 Order name: Hemoglobin A1c [facility] 10/21 13:32 Order name: CT Abd/Pelvis - IV Contrast Only; Complete Time: 15:37 [facility] 10/21 11:51 Order name: IV Saline Lock; Complete Time: 12:41 [facility] 10/21 11:51 Order name: Labs collected and sent; Complete Time: 12:41 [facility] 10/21 11:51 Order name: EKG - Nurse/Tech; Complete Time: 15:14 [facility] EC:05 Rate is 53 beats/min. Rhythm is regular. QRS [place] is Normal. [place] interval is normal. QRS maricarmen interval is normal. QT interval is normal. No Q waves. T waves are Normal. No ST changes noted. Clinical impression: NSR w/ Non-specific ST/T Changes and No evidence of ischemia. Interpreted by me. Reviewed by me. Administered Medications: 12:41 Drug: Famotidine IVP 20 mg IVP once; dilute with 10 mL 0.9% NaCl; give over 2 minutes kj2 Route: IVP; Site: left antecubital; 12:41 Drug: NS 0.9% IV 1000 ml IV at 1 bolus Per protocol; to be given as a bolus over 60 kj2 minutes Route: IV; Rate: 1 bolus; Site: left antecubital; 12:41 Drug: Promethazine IVP 12.5 mg IVP once Route: IVP; Site: left antecubital; kj2 17:09 Follow up: Response: No adverse reaction kj2 14:28 Drug: Promethazine IVP 12.5 mg IVP once Route: IVP; Site: left antecubital; kj2 17:17 Follow up: Response: No adverse reaction kj2 14:28 Drug: morphine IVP or IV 2 mg IVP once over 4 mins Route: IVP; Infused Over: 4 mins; kj2 Site: left antecubital; 17:09 Follow up: Response: No adverse reaction kj2 14:28 Drug: Potassium Chloride IV 20 mEq IV at per protocol once; administer over 1-2 hours kj2 Route: IV; Rate: per protocol; Site: left antecubital; 17:08 Follow up: IV Status: Completed infusion; IV Intake: 100ml kj2 14:28 Drug: NS 0.9% with KCl IV 20 mEq/L 1000 ml IV at 125 ml/hr continuous Route: IV; Rate: kj2 125 ml/hr; Site: left antecubital; 14:29 Drug: NS 0.9% IV 1000 ml IV at 1 bolus Per protocol; to be given as a bolus over 60 kj2 minutes Route: IV; Rate: 1 bolus; Site: left antecubital; 17:08 Drug: Potassium Chloride IV 20 mEq IV at per protocol once; administer over 1-2 hours kj2 Route: IV; Rate: per protocol; Site: right antecubital; 17:17 Drug: morphine IVP or IV 2 mg IVP once over 4 mins Route: IVP; Infused Over: 4 mins; kj2 Site: right antecubital; Disposition Summary: 10/21/24 13:39 Hospitalization Ordered Notes: Hospitalization Status: Inpatient Admission maricarmen Provider: Prince Hernandez cha Condition: Fair maricarmen Problem: new maricarmen Symptoms: have improved maricarmen Bed/Room Type: Standard maricarmen Location: Telemetry/MedSurg (observation)(10/21/24 16:59) jl7 Room Assignment: 220(10/21/24 16:59) jl7 Diagnosis - Epigastric abdominal tenderness maricarmen - Gastroparesis maricarmen - Vomiting maricarmen - Diarrhea, unspecified maricarmen - Morbid (severe) obesity due to excess calories maricarmen - Dehydration maricarmen - Elevated white blood cell count maricarmen - Hypokalemia maricarmen Forms: - Medication Reconciliation Form maricarmen - SBAR form maricarmen - Leadership Thank You Letter maricarmen Signatures: Dispatcher [employer] Trace Sanchez MD MD cha Baxter, Heather RN BONITA Porter Bernstein RN RN jl7 Katherine Bill RN RN kj2 Corrections: (The following items were deleted from the chart) 11:51 11:51 CBC+H.LAB.BRZ ordered. EDMS EDMS 11:51 11:51 COMPREHENSIVE METABOLIC PANEL+C.LAB.BRZ ordered. EDMS EDMS 11:51 11:51 LIPASE+C.LAB.BRZ ordered. EDMS EDMS 11:51 11:51 Test, Urine+UC.LAB.BRZ ordered. EDMS EDMS 11:51 11:51 Urinalysis+U.LAB.BRZ ordered. EDMS EDMS 11:52 11:51 Troponin High Sensitivity+C.LAB.BRZ ordered. EDMS EDMS 13:39 13:35 Abdomen Limited+US.RAD.BRZ ordered. EDMS EDMS 16:59 13:39 Telemetry/MedSurg (Inpatient) [place] [id number] 16:59 13:39 maricarmen beckwith
--- NOTE | 2024-10-21 13:39 | ER ---
Nurse's Notes [facility] Name: Katherine Yepez Age: 44 yrs Sex: Female : 1980 Arrival Date: 10/21/2024 Time: 11:27 Bed 19 Private MD: Diagnosis: Epigastric abdominal tenderness;Gastroparesis;Vomiting;Diarrhea, unspecified;Morbid (severe) obesity due to excess calories;Dehydration;Elevated white blood cell count;Hypokalemia Presentation: 10/21 11:45 Chief complaint: EMS states: Diarrhea x 3 days, N/V and upper abdominal pain since this hb morning. Hx of gastroparesis, feels like previous episodes. Reglan 10 mg, Ofirmev 1gm, and NS 250 mls administered to 20g LAC. Coronavirus screen: At this time, the client does not indicate any symptoms associated with coronavirus-19. Ebola Screen: No symptoms or risks identified at this time. Initial Sepsis Screen: Does the patient meet any 2 criteria? No. Patient's initial sepsis screen is negative. Does the patient have a suspected source of infection? No. Patient's initial sepsis screen is negative. Risk Assessment: Do you want to hurt yourself or someone else? Patient reports no desire to harm self or others. Onset of symptoms was October 18, 2024. 11:45 Method Of Arrival: EMS: [facility] 11:45 Acuity: CHAZ 3 hb Triage Assessment: 11:48 General: Appears in no apparent distress. Behavior is calm, cooperative. Pain: Pain hb currently is 8 out of 10 on a pain scale. Neuro: Level of Consciousness is awake, alert, obeys commands, Oriented to person, place, time, situation. Cardiovascular: Patient's skin is warm and dry. Respiratory: Respiratory effort is even, unlabored, Respiratory pattern is regular, symmetrical. GI: Reports upper abdominal pain, diarrhea, nausea, vomiting. Historical: - Allergies: 11:48 Bactrim; hb 11:48 GABAPENTIN; hb 11:48 Prednisone; hb 11:48 Toradol; hb 11:48 tramadol; hb 11:48 Ultracet; hb 11:48 Zofran; hb - Home Meds: 11:52 glipizide 10 mg Oral tablet 2 times per day [Active]; metformin 1,000 mg Oral tablet 2 hb times per day [Active]; levothyroxine 75 mcg capsule daily [Active]; hydrochlorothiazide 25 mg Oral tablet daily [Active]; tizanidine 4 mg oral tablet as needed [Active]; Januvia 100 mg oral tablet daily [Active]; metoprolol tartrate 100 mg Oral tablet 2 times per day [Active]; - PMHx: 11:48 diabetes mellitus; Hypertensive disorder; Hypothyroidism; hb - Immunization history:: Adult Immunizations up to date. - Infectious Disease History:: Denies. - Social history:: Smoking status: Patient denies any tobacco usage or history of. Screenin:49 [facility] ED Fall Risk Assessment (Adult) History of falling in the last 3 months, hb including since admission No falls in past 3 months (0 pts) Confusion or Disorientation No (0 pts) Intoxicated or Sedated No (0 pts) Impaired Gait No (0 pts) Mobility Assist Device Used No (0 pt) Altered Elimination No (0 pt) Score/Fall Risk Level 0 - 2 = Low Risk Oriented to surroundings, Maintained a safe environment, Educated pt \T\ family on fall prevention, incl call for assistance when getting out of bed. Abuse screen: Denies threats or abuse. Denies injuries from another. Nutritional screening: No deficits noted. Tuberculosis screening: No symptoms or risk factors identified. Assessment: 11:49 General: See triage assessment . hb 12:11 Reassessment: Patient appears in no apparent distress at this time. kj2 12:15 Reassessment: Patient appears in no apparent distress at this time. Patient and/or kj2 family updated on plan of care and expected duration. Pain level reassessed. Patient is alert, oriented x 3, equal unlabored respirations, skin warm/dry/pink. 13:15 Reassessment: Patient appears in no apparent distress at this time. Patient and/or kj2 family updated on plan of care and expected duration. Pain level reassessed. Patient is alert, oriented x 3, equal unlabored respirations, skin warm/dry/pink. 14:00 Reassessment: Patient appears in no apparent distress at this time. Patient and/or kj2 family updated on plan of care and expected duration. Pain level reassessed. Patient is alert, oriented x 3, equal unlabored respirations, skin warm/dry/pink. 15:00 Reassessment: Patient appears in no apparent distress at this time. Patient and/or kj2 family updated on plan of care and expected duration. Pain level reassessed. Patient is alert, oriented x 3, equal unlabored respirations, skin warm/dry/pink. 16:00 Reassessment: Patient appears in no apparent distress at this time. Patient and/or kj2 family updated on plan of care and expected duration. Pain level reassessed. Patient is alert, oriented x 3, equal unlabored respirations, skin warm/dry/pink. 17:00 Reassessment: Patient appears in no apparent distress at this time. Patient and/or kj2 family updated on plan of care and expected duration. Pain level reassessed. Patient is alert, oriented x 3, equal unlabored respirations, skin warm/dry/pink. Vital Signs: 11:45 BP 197 / 85; Pulse 66; Resp 16; Temp 98.3; Pulse Ox 100% on R/A; Weight 154.22 kg; hb Height 5 ft. 11 in. ; Pain 8/10; 13:00 BP 180 / 80; Pulse 88; Resp 20; Pulse Ox 100% on R/A; kj2 14:00 BP 159 / 71; Pulse 78; Resp 18; Temp 98; Pulse Ox 100% ; kj2 11:45 Body Mass Index 47.42 (154.22 kg, 180.34 cm) hb 11:45 Pain Scale: Adult hb ED Course: 11:45 Patient arrived in ED. hb 11:47 Triage completed. hb 11:48 Arm band placed on. hb 11:49 Trace Izaguirre MD is Attending Physician. maricarmen 11:49 Patient has correct armband on for positive identification. Bed in low position. Call hb light in reach. Provided Education on: use of call light . 11:49 Maintain EMS IV. Dressing intact. Good blood return noted. Site clean \T\ dry. Gauge \T\ hb site: 20g LAC. Flushed with 10 mL NS. 12:11 Katherine Bill, RN is Primary Nurse. kj2 12:42 CBC with Diff Sent. kj2 12:42 CMP Sent. kj2 12:42 Test, Urine Sent. kj2 12:42 Urinalysis w/ reflexes Sent. kj2 13:38 Prince Hernandez is Hospitalizing Provider. [facility] 14:56 CT Abd/Pelvis - IV Contrast Only In Process Unspecified. EDMS 16:15 Inserted saline lock: 20 gauge in right antecubital area, using aseptic technique. kj2 Blood collected. Flushed with 10 mL NS. 21:32 Patient admitted, IV remains in place. kj2 21:33 No provider procedures requiring assistance completed. kj2 Administered Medications: 12:41 Drug: Famotidine IVP 20 mg IVP once; dilute with 10 mL 0.9% NaCl; give over 2 minutes kj2 Route: IVP; Site: left antecubital; 12:41 Drug: NS 0.9% IV 1000 ml IV at 1 bolus Per protocol; to be given as a bolus over 60 kj2 minutes Route: IV; Rate: 1 bolus; Site: left antecubital; 12:41 Drug: Promethazine IVP 12.5 mg IVP once Route: IVP; Site: left antecubital; kj2 17:09 Follow up: Response: No adverse reaction kj2 14:28 Drug: Promethazine IVP 12.5 mg IVP once Route: IVP; Site: left antecubital; kj2 17:17 Follow up: Response: No adverse reaction kj2 14:28 Drug: morphine IVP or IV 2 mg IVP once over 4 mins Route: IVP; Infused Over: 4 mins; kj2 Site: left antecubital; 17:09 Follow up: Response: No adverse reaction kj2 14:28 Drug: Potassium Chloride IV 20 mEq IV at per protocol once; administer over 1-2 hours kj2 Route: IV; Rate: per protocol; Site: left antecubital; 17:08 Follow up: IV Status: Completed infusion; IV Intake: 100ml kj2 14:28 Drug: NS 0.9% with KCl IV 20 mEq/L 1000 ml IV at 125 ml/hr continuous Route: IV; Rate: kj2 125 ml/hr; Site: left antecubital; 14:29 Drug: NS 0.9% IV 1000 ml IV at 1 bolus Per protocol; to be given as a bolus over 60 kj2 minutes Route: IV; Rate: 1 bolus; Site: left antecubital; 17:08 Drug: Potassium Chloride IV 20 mEq IV at per protocol once; administer over 1-2 hours kj2 Route: IV; Rate: per protocol; Site: right antecubital; 17:17 Drug: morphine IVP or IV 2 mg IVP once over 4 mins Route: IVP; Infused Over: 4 mins; kj2 Site: right antecubital; Medication: 11:49 VIS not applicable for this client. hb Intake: 17:08 IV: 100ml; Total: 100ml. kj2 Outcome: 13:39 Decision to Hospitalize by Provider. maricarmen 21:32 Admitted to Med/surg accompanied by tech, via wheelchair, kj2 21:32 Condition: stable 21:32 Instructed on the need for admit, 21:33 Patient left the ED. kj2 Signatures: Dispatcher [employer] EDTrace Archer MD MD cha Baxter, Heather, RN RN Katherine Sweeney RN RN kj2
[2024-10-21] MEDS ORDERED: KCL 20 MEQ/100 mL IVPB 100 ML IV ONE ×2 (14:08→16:59)
[2024-10-21] MEDS ORDERED: MORPHINE 2 MG/ML SYR ONE ×2 (14:11→17:09)
--- NOTE | 2024-10-21 15:05 | RAD REPORT ---
EXAMINATION: CT ABDOMEN AND PELVIS WITH CONTRAST CLINICAL INDICATION: Female, 44 years old.ABD PAIN TECHNIQUE: CT abdomen and pelvis was performed, after the administration of IV contrast, as per [facility] protocol. Axial, sagittal and coronal reconstructions were obtained. One or more of the following dose reduction techniques were used: Automated exposure control, adjustment of the mA and/o r kV according to patient size, and/or iterative reconstruction. Unless otherwise specified, incidental findings do not require dedicated imaging follow-up. [id number]. COMPARISON: 08/03/2024 FINDINGS: LOWER CHEST: No acute process identified.No significant pericardial effusion. UPPER GI: No significant abnormality. LIVER: Hepatic steatosis, but otherwise unremarkable. GALLBLADDER/BILE DUCTS: Cholecystomy? PANCREAS: No mass, ductal dilation, or newton-pancreatic fluid. SPLEEN: Unremarkable. ADRENALS: No adrenal masses. KIDNEYS AND URETERS: No hydronephrosis.No suspicious renal mass.5 mm left renal stone. ABDOMINAL AORTA AND OTHER VESSELS: Normal caliber aorta and IVC. PERITONEUM: No abnormal free fluid. No free air. LYMPH NODES: No pathologic lymphadenopathy. ABDOMINAL WALL: Unremarkable SMALL BOWEL/COLON: Small bowel has normal course and caliber. No colonic wall thickening or pericolon ic inflammatory changes. URINARY BLADDER: Underdistended but grossly unremarkable. REPRODUCTIVE ORGANS: No pathologic process. MUSCULOSKELETAL: Multilevel degenerative changes in the spine. No acute fracture. ADDITIONAL FINDINGS: None. IMPRESSION: No acute findings within the abdomen or pelvis. Nonstructural left nephrolithiasis.
[2024-10-21] MEDS ORDERED: ONDANSETRON 4 MG/2 ML VIAL IV PRN (15:41)
[2024-10-21] MEDS ORDERED: SODIUM CHLORIDE 0.9% 10ML INJ IV PRN (15:41)
[2024-10-21] MEDS ORDERED: ACETAMINOPHEN 500 MG TAB PO PRN (15:41)
--- NOTE | 2024-10-21 15:41 | P.HP ---
Certification for Inpatient Patient admitted to: Observation With expected LOS: <2 Midnights Patient will require the following post-hospital care: None Practitioner: I am a practitioner with admitting privileges, knowledge of patient current condition, hospital course, and medical plan of care. Services: Services provided to patient in accordance with Admission requirements found in Title 42 Section 412.3 of the Code of Federal Regulations Patient History Date of Service: 10/21/24 Reason for admission: Nausea and vomiting History of Present Illness: Patient is a 44-year-old female came to the hospital with nausea and vomiting. Patient has a history of diabetes diagnosed 22 years ago. She had just gestational diabetes during her and afterwards she developed diabetes and has continued taking medications on and off for it. She states she developed gastroparesis about 10 years ago. She is not on Ozempic or Mounjaro. In the ER, she complained of nausea and vomiting. She was admitted for gastroparesis. Patient will be given antiemetics and prokinetic agents to assist in her treatment. Will also give her pain control. At this time patient will be admitted to the hospital for further workup. Allergies ketorolac [From Toradol] Allergy (Verified 12/16/22 14:30) shakes/tremors ondansetron [From Zofran] Allergy (Verified 12/16/22 14:30) Itching/Hives/Rash prednisone Allergy (Verified 12/16/22 14:30) Itching/Hives/Rash sulfamethoxazole [From Bactrim] Allergy (Verified 12/16/22 14:30) Hives/Rash tramadol Allergy (Verified 12/16/22 14:30) makes the pt suicidal trimethoprim [From Bactrim] Allergy (Verified 12/16/22 14:30) Hives/Rash gabapentin Adverse Reaction (Severe, Verified 12/16/22 14:30) makes patient suicidal Home Medications: Levothyroxine [Synthroid*] 75 mcg PO [id number] 06/29/18 Lisinopril/Hydrochlorothiazide [Zestoretic 20-25 mg Tablet] 1 tab PO DAILY 06/29/18 Metformin HCl 1,000 mg PO BID #60 tablet 07/03/18 Metoclopramide HCl [Reglan] 10 mg PO QID #90 tablet 07/03/18 glipiZIDE [Glipizide] 10 mg PO DAILY #30 tablet 07/03/18 - Past Medical/Surgical History Diabetic: Yes -: HTN -: DM type 2 -: Hyperthyroidism -: Morbid obesity -: diabetic gastroparesis -: psoriatic arthiritis -: eczema -: fatty liver -: D and C -: Cholecystectomy -: CS -: Injections in the spine - Family History Mother Medical History: Hypertension, Diabetes Father Family History: Reviewed- Non-Contributory - Social History Smoking Status: Former smoker Alcohol use: No Review of Systems 10-point ROS is otherwise unremarkable Physical Examination - Physical Exam General: Alert, In no apparent distress, Oriented x3, Obese HEENT: Atraumatic, PERRLA, Mucous membr. moist/pink, EOMI, Sclerae nonicteric Neck: Supple, 2+ carotid pulse no bruit, No LAD, Without JVD or thyroid abnormality Respiratory: Clear to auscultation bilaterally, Normal air movement Cardiovascular: Regular rate/rhythm, Normal S1 S2 Gastrointestinal: Normal bowel sounds, Soft and benign, Non-distended, No tenderness Musculoskeletal: No clubbing, No tenderness Integumentary: No rashes Neurological: Normal gait, Normal speech, Normal strength at 5/5 x4 extr, Normal tone, Sensation intact, Cranial nerves 3-12 intact, Normal affect Lymphatics: No axilla or inguinal lymphadenopathy - Studies Laboratory Data (last 24 hrs) 10/21/24 10/21/24 12:30 12:30 WBC 14.60 H Hgb 13.2 Hct 41.1 Plt Count 367 Sodium 134 L Potassium 2.7 L BUN 11 Creatinine 0.90 Glucose 227 H Total Bilirubin 0.7 AST 19 ALT 27 Alkaline Phosphatase 71 Lipase 28 Assessment & Plan - Problems (Diagnosis) (1) Diabetic gastroparesis Current Visit: Yes Status: Acute (2) Diabetes mellitus Onset Date: 06/30/18 Current Visit: No Status: Acute (3) Obesity Onset Date: 06/30/18 Current Visit: No Status: Acute - Plan Plan: 1. Continue with IV fluids 2. Continue with Reglan 3. Continue with anxiolytics 4. Erythromycin as needed 5. Continue with pain control as needed 6. Strict blood sugar control; Accu-Cheks before every meal nightly and sliding scale 7. GI DVT prophylaxis Discharge Plan: Home Plan to discharge in: 24 Hours - Advance Directives Does patient have a Living Will: No Does patient have a Durable POA for Healthcare: No - Code Status/Comfort Care Code Status Assessed: Yes Code Status: Full Code Critical Care: No Time Spent Managing PTS Care (In Minutes): 40
[2024-10-21] MEDS: METOCLOPRAMIDE 10 MG/2mL INJ IV SCH (16:00)
[2024-10-21] MEDS: NA CHLORIDE 0.9% 1,000 ML IV SCH (16:00)
[2024-10-21] MEDS: dexAMETHasone 4 MG/ML VIAL IV SCH (18:00)
[2024-10-21] MEDS: ERYTHROMYCIN 200 MG/5ML 100ML PO SCH (18:00)
[2024-10-21] MEDS ORDERED: METOPROLOL TARTRATE 5 MG/5 ML INJ IV PRN (18:18)
[2024-10-21] MEDS ORDERED: dexAMETHasone 4 MG/ML VIAL ONE (18:19)
[2024-10-21] MEDS ORDERED: METOCLOPRAMIDE 10 MG/2mL INJ ONE (18:19)
[2024-10-21] MEDS ORDERED: PANTOPRAZOLE 40 MG INJ ONE (18:19)
[2024-10-21] MEDS: HYDRALAZINE HCL 20 MG/ML VIAL IV PRN (18:29)
[2024-10-21] MEDS: PANTOPRAZOLE 40 MG INJ IVP SCH (20:28)
[2024-10-21 21:20] VITALS: BMI 46.0
[2024-10-21] MEDS: FENTANYL CITR 100 MCG/2 ML IV PRN (21:39)
[2024-10-21 21:41] VITALS: O2SAT 100
[2024-10-22] MEDS: PROMETHAZINE INJ 25 MG/ML AMP IV PRN (03:05)
[2024-10-22] MEDS: HYDROCODONE/APAP 7.5/325 MG TAB PO ONE (06:43)
[2024-10-22] MEDS: LEVOTHYROXINE SOD 0.075 MG TAB PO SCH (06:44)
[2024-10-22 06:57] LABS: Absolute Lymphocytes (CBC) 1.2 K/uL (0.7-4.9); Absolute Monocytes 0.5 K/uL (0.1-1.3); Absolute Neutrophil 10.5 K/uL (1.8-8.0); Basophils % 0.3 % (0-1.3); Hematocrit 34.7 % (36.0-45.0); Hemoglobin 11.4 g/dL (12.0-15.0); Lymphocytes % 9.4 % (15.3-44.8); MCH 26.1 pg (27.0-35.0); MCHC 32.9 g/dL (32.0-36.0); MCV 79.5 fL (80-100); MPV 9.3 fL (7.6-11.3); Monocytes % 4.1 % (3.3-12.3); Neutrophils % 86.2 % (41.7-73.7); Platelets 293 thou/uL (152-406); RBC Red Blood Cell Count 4.36 M/uL (3.86-4.86); Red Cell Distribution Width 17.9 % (12.1-15.2)
[2024-10-22 07:05] LABS: Albumin 2.8 g/dL (3.4-5.0); Albumin/Globulin Ratio 0.8 (1.1-1.8); Anion Gap 10.6 mEq/L (5.0-15.0); Bilirubin Total 0.5 mg/dL (0.2-1.0); Globulin 3.7 g/dL (2.3-3.5); Potassium 3.6 mEq/L (3.5-5.1); Protein, Total 6.5 g/dL (6.4-8.2)
[2024-10-22] MEDS: ALPRAZOLAM 1 MG TABLET PO ONE (14:18)
[2024-10-22] MEDS: HYDROCODONE/APAP 7.5/325 MG TAB PO PRN (15:37)
[2024-10-22] MEDS ORDERED: KETOROLAC 10 MG TAB PO PRN (16:41)
--- NOTE | 2024-10-22 17:50 | P.DS ---
Admission Date: 10/21/24 Discharge Date: 10/22/24 Disposition: [facility] Reason for Admission: Nausea and vomiting Brief History of Present Illness: Patient is a 44-year-old female came to the hospital with nausea and vomiting. Patient has a history of diabetes diagnosed 22 years ago. She had just gestational diabetes during her and afterwards she developed diabetes and has continued taking medications on and off for it. She states she developed gastroparesis about 10 years ago. She is not on Ozempic or Mounjaro. In the ER, she complained of nausea and vomiting. She was admitted for gastroparesis. Patient will be given antiemetics and prokinetic agents to assist in her treatment. Will also give her pain control. At this time patient will be admitted to the hospital for further workup. - Physical Exam General: Alert, In no apparent distress, Oriented x3, Obese HEENT: Atraumatic, PERRLA, Mucous membr. moist/pink, EOMI, Sclerae nonicteric Neck: Supple, 2+ carotid pulse no bruit, No LAD, Without JVD or thyroid abnormality Respiratory: Clear to auscultation bilaterally, Normal air movement Cardiovascular: Regular rate/rhythm, Normal S1 S2 Gastrointestinal: Normal bowel sounds, Soft and benign, Non-distended, No tenderness Musculoskeletal: No clubbing, No tenderness Integumentary: No rashes Neurological: Normal gait, Normal speech, Normal strength at 5/5 x4 extr, Normal tone, Sensation intact, Cranial nerves 3-12 intact, Normal affect Lymphatics: No axilla or inguinal lymphadenopathy Hospital Course: 44-year-old female came to the hospital with nausea and vomiting. Patient has a history of diabetes diagnosed 22 years ago. She had just gestational diabetes during her and afterwards she developed diabetes and has continued taking medications on and off for it. She states she developed gastroparesis about 10 years ago. She is not on Ozempic or Mounjaro. In the ER, she complained of nausea and vomiting. She was admitted for gastroparesis. Patient will be given antiemetics and prokinetic agents to assist in her treatment. Will also give her pain control. Tolerating clear liquid diet, plan to discharge home, follow-up with PCP after discharge Discharged home As needed analgesia, as needed antiemetics, Antianxiety medications, take as directed, CT of the abdomen no acute findings Assessment gastroparesis- Nausea vomiting-instructed to keep hydrated, as needed antiemetics, clear liquid diet, advance as Diabetes-instructed on strict blood glucose control Continue home medicines as previously prescribed GOAL: Clear understanding of disease process INSTRUCTIONS: Physician Discharge Instructions: -Follow-up with PCP in 1 to 2 weeks -Please call Dr. Ponce at [phone] if any questions regarding hospital stay -Please call nursing station at [phone] if any nursing or medication questions -Return to the emergency room if symptoms worsen Diet: ADA, low sodium Activity: Fall precautions Vital Signs/Physical Exam: Temp Pulse Resp BP Pulse Ox 98.6 F 78 16 170/73 H 95 10/22/24 16:00 10/22/24 16:00 10/22/24 16:00 10/22/24 16:00 10/22/24 16:00 Laboratory Data at Discharge: WBC 12.20 thou/uL (4.3-10.9) H 10/22/24 06:29 Hgb 11.4 g/dL (12.0-15.0) L D 10/22/24 06:29 Hct 34.7 % (36.0-45.0) L 10/22/24 06:29 Plt Count 293 thou/uL (152-406) 10/22/24 06:29 Sodium 140 mEq/L (136-145) D 10/22/24 06:29 Potassium 3.6 mEq/L (3.5-5.1) D 10/22/24 06:29 BUN 6 mg/dL (7-18) L 10/22/24 06:29 Creatinine 0.58 mg/dL (0.55-1.02) 10/22/24 06:29 Glucose 183 mg/dL (74-106) H 10/22/24 06:29 Phosphorus 2.2 mg/dL (2.5-4.9) L 10/21/24 16:35 Magnesium 1.9 mg/dL (1.6-2.4) 10/22/24 06:29 Total Bilirubin 0.5 mg/dL (0.2-1.0) 10/22/24 06:29 AST 12 U/L (15-37) L 10/22/24 06:29 ALT 19 U/L (13-56) 10/22/24 06:29 Alkaline Phosphatase 58 U/L (45-117) 10/22/24 06:29 Lipase 28 U/L (13-75) 10/21/24 12:30 Home Medications: Levothyroxine [Synthroid*] 75 mcg PO [id number] 06/29/18 Metformin HCl 1,000 mg PO BIDWM 10/21/24 Metoprolol Tartrate 100 mg PO BID 10/21/24 Sitagliptin Phosphate [Januvia] 100 mg PO DAILY 10/21/24 Tizanidine HCl 4 mg PO Q8HP 10/21/24 glipiZIDE [Glipizide] 10 mg PO BID 10/21/24 hydroCHLOROthiazide [Hydrochlorothiazide] 25 mg PO DAILY 10/21/24 Diet: Low sodium Activity: Fall precautions Followup: NONE,NONE [Primary Care Provider] - Time spent managing pt's care (in minutes): 45
[2024-10-22] MEDS: clonazePAM 1 MG TAB PO PRN (18:40)
[2024-10-22 22:15] VITALS: BP 125/57; TEMP 98.5
== END 2024-10-22 21:00 | disposition home health service (06) ==
LOC: ER 11:27 → ERHOLD 15:41 → 2ND 20:29
PROVIDERS: ADMIT Hospitalist; ATTEND Hospitalist
DX: K31.84 Gastroparesis (principal); E11.43 Type 2 diabetes mellitus with diabetic autonomic (poly)neuropathy; R11.2 Nausea with vomiting, unspecified; E87.6 Hypokalemia; E86.0 Dehydration; D72.829 Elevated white blood cell count, unspecified; E66.9 Obesity, unspecified; F41.9 Anxiety disorder, unspecified; Z88.2 Allergy status to sulfonamides; Z88.8 Allergy status to other drugs, medicaments and biological substances; Z87.891 Personal history of nicotine dependence
CPT/HCPCS: 85025 ×2; 81001; 36415; 83735; 81025; 84100; 82947 ×2; 83036; 84484; 83690; 80053 ×2; 74177; 99285; Q9967; J2550 ×5; J3480 ×2; J0360; J1100 ×3; J2765 ×5; J2470 ×2; J3010 ×2; J2270 ×2; J7030 ×3; 93005

== ENCOUNTER 2024-11-16 20:43 | Emergency (ER) | payer OTHER ==
--- OUTSIDE RECORDS SUMMARY | 2024-11-16 20:57 | XMS REPORT | Continuity of Care Document ---
Author Name Unknown Address [address] [facility] [address] [place] [address] [facility] Address [address] [facility] [place] [address] Care Team Providers Care Clinical Athletic Instructor Name Role Phone COSMO [facility], [facility] Care Physician Unavailable KATHLEEN WILD Attending Clinician Unavailable ANGÉLICA DIGGS Attending Clinician Unavailable DALLAS AGUILAR Attending Clinician Unavailable Doctor Unassigned, [place] Attending Clinician U VERN King Attending Clinician Vern Fernando MD Attending Clinician [phone] Gris Gruber Attending Clinician GRIS SANCHEZ Attending Clinician Unavailable BRISSA BETANCUR Attending Clinician Unavailable POLO PATTERSON Attending Clinician Unavailable KATHLEEN WILD Admitting Clinician Unavailable BRISSA AGUILAR Admitting Clinician Unavailable VERN SEVERINO Admitting Clinician Rosario varela Payers Payer Name Policy Type Policy Number Effective Date Expirati on Date Source ADRI O [id number] 2021 00:00:00 Problems Condition Name Condition Details Condition Category Status Onset Date Resolution Date Last Treatment Date Treating Clinician Comments Source No known active problems No known active problems Disease [facility] Allergies, Adverse Reactions, Alerts Allergy Name Allergy Type Status Severity Reaction(s) Onset Date Inactive Date Treating Clinician Comments Source predniso ne Propensi ty to adverse reaction to drug Active 27 00:00: 00 Cosmo Nieves GABAPENT IN DRUG INGREDI Active High Other-Cmnt 3-19 00:00: 00 [facility] TRAMADOL DRUG INGREDI Active High Other-Cmnt 3-19 00:00: 00 [facility] Gabapent in - Oral Propensi ty [...] s Active Swelling 2020-08 0 00:00: 00 [facility] Predniso ne Propensi ty to adverse reaction s Active Rash 2020-08 0-27 00:00: 00 [facility] Ketorola c Propensi ty to adverse reaction s Active Other - See comments 2020-08 0- 00:00: 00 zachary [facility] Ondanset fabiano Hcl Propensi ty to adverse reaction s Active Hives 2020-08 0-27 00:00: 00 [facility] SULFAMET HOXAZOLE -TRIMETH OPRIM DRUG Active Swelling 2020-08 0 00:00: 00 [facility] PREDNISO NE DRUG INGREDI Active Rash 2020-08 0 00:00: 00 [facility] KETOROLA C DRUG INGREDI Active Other-Cmnt 2020-08 0 00:00: 00 [facility] ONDANSET FABIANO HCL DRUG INGREDI Active Hives 2020-08 0 00:00: 00 [facility] Glimepir michelle Propensi ty to adverse reaction to drug Inactiv e 09-29 00:00: 00 Cosmo Nieves Zofran (ondanse andrea hcl) (Not Checked) Propensi ty to adverse reaction to drug Inactiv e 01-24 00:00: 00 Cosmo Nieves NO KNOWN ALLERGIE S Drug Class Active [facility] Social History Social Habit Start Date Stop Date Quantity Comments Source [facility] to SARS-CoV-2 (event) 2022-05-29 00:00:00 2022-06-08 [...] Dosage Frequency Signature (SIG) Comments Components Source furosemide 40 mg tablet 10-31 00:00: 00 Yes 1mg Cosmo Nieves Reglan 10 mg tablet 10-31 00:00: 00 Yes 1mg Cosmo Nieves Januvia 100 mg tablet 2023-08 00:00: 00 Yes mg Cosmo Nieves albuterol sulfate HFA 90 mcg/actuati on aerosol inhaler 2023-08- 00:00: 00 Yes 12mcg/a ctuatio n Cosmo Nieves Bromfed DM 2 mg-30 mg-10 mg/5 mL oral syrup 2023-08- 00:00: 00 Yes 10mg/5 mL Cosmo Nieves metformin 1,000 mg tablet 2023-08- 00:00: 00 Yes 1mg Cosmo Nieves metoprolol tartrate 100 mg tablet 2023-08- 00:00: 00 Yes mg Cosmo Nieves tizanidine 4 mg tablet 2023-08- 00:00: 00 Yes mg Cosmo Nieves glipizide 10 mg tablet 2023-08- 00:00: 00 Yes mg Cosmo Nieves hydrochloro thiazide 25 mg tablet 2023-08- 00:00: 00 Yes mg Cosmo Nieves Januvia 100 mg tablet 2023-08- 00:00: 00 Yes mg Cosmo Nieves atorvastati n 20 mg tablet 2023-08 00:00: 00 Yes 1mg Cosmo Nieves metformin 1,000 mg tablet 2023-08- 00:00: 00 Yes 1mg Cosmo Nieves metoprolol tartrate 100 mg tablet 2023-08- 00:00: 00 Yes mg Cosmo Nieves tizanidine 4 mg tablet 2023-08 00:00: 00 Yes mg Cosmo Nieves glipizide 10 mg tablet 2023-08 00:00: 00 Yes mg Cosmo Nieves hydrochloro thiazide 25 mg tablet 2023-08- 00:00: 00 Yes mg Cosmo Nieves Januvia 100 mg tablet 2023-08- 00:00: 00 Yes mg Cosmo Nieves levothyroxi ne 75 mcg tablet 2023-08 00:00: 00 Yes mcg Cosmo Nieves buspirone 5 mg tablet 2023-08-18 00:00: 00 Yes 1mg Cosmo Nieves metoprolol [...] mg Cosmo Nieves tizanidine 4 mg tablet - 00:00: 00 Yes mg Cosmo Nieves glipizide 10 mg tablet 0 - 00:00: 00 Yes mg Cosmo Nieves hydrochloro thiazide 25 mg tablet 0 - 00:00: 00 Yes mg Cosmo Nieves Januvia 100 mg tablet 0 02-09 00:00: 00 Yes mg Cosmo Nieves levothyroxi ne 75 mcg tablet 0 02-09 00:00: 00 Yes mcg Cosmo Nieves Januvia 100 mg tablet 0 01-17 00:00: 00 Yes mg Cosmo Nieves metoprolol tartrate 100 mg tablet 0 01-12 00:00: 00 Yes mg oCsmo Nieves tizanidine 4 mg tablet 0 01-12 00:00: 00 Yes mg Cosmo Nieves glipizide 10 mg tablet 0 01-12 00:00: 00 Yes mg Cosmo Nieves levothyroxi ne 75 mcg tablet 0 01-12 00:00: 00 Yes mcg Cosmo Nieves metformin 1,000 mg tablet 0 5- 00:00: 00 Yes mg Cosmo Nieves CEPHALEXIN 500 MG 0 4-15 00:00: 00 Yes Cosmo Nieves HYDROCODONE -ACETAMIN 7.5-325 0 4-02 00:00: 00 Yes Cosmo Nieves AZITHROMYCI [...] HOURS NEEDED FOR PAIN FOR 15 DAYS 2023-0 2-13 00:00: 00 Yes Cosmo Nieves TAKE 1 TABLET BY MOUTH EVERY 6 HOURS NEEDED FOR PAIN 2023-0 1-30 00:00: 00 Yes Cosmo Nieves TAKE 1 TABLET BY MOUTH TWICE DAILY 2023-0 1-10 00:00: 00 Yes 10 Cosmo Nieves TAKE 1 TABLET DAILY. 1- 00:00: 00 Yes 25 Cosmo Nieves TAKE 1 TABLET BY MOUTH DAILY 1-10 00:00: 00 Yes 75 Cosmo Nieves TAKE 1 TABLET BY MOUTH TWICE DAILY 1- 00:00: 00 Yes 100 Cosmo Nieves TAKE 1 TABLET EVERY 8 HOURS NEEDED FOR MUSCLE SPASM. 08-25 00:00: 00 Yes 4 Cosmo Nieves TAKE 1 TABLET DAILY. 08-25 00:00: 00 Yes 100 Cosmo Nieves TAKE 1 TABLET BY MOUTH EVERY 6 HOURS NEEDED FOR PAIN 08-24 00:00: 00 Yes Cosmo Nieves TAKE 1 TABLET BY MOUTH TWICE DAILY - 00:00: 00 12-27 00:00 :00 No 1000 Cosmo Nieves TAKE 1 TABLET BY MOUTH TWICE DAILY - 00:00: 00 12-27 00:00 :00 No 10 Cosmo Nieves TAKE 1 TABLET BY MOUTH TWICE DAILY 2022-08 00:00: 00 Yes Cosmo Nieves TAKE 1 TABLET BY MOUTH TWICE DAILY 2022-08 2 00:00: 00 Yes 10 Cosmo Nieves TAKE 1 CAPSULE BY MOUTH EVERY 12 HOURS FOR 10 DAYS 2022-08 2 00:00: 00 Yes Cosmo Nieves HYDROCODONE -ACETAMIN 7.5-325 2022-08 0-31 00:00: 00 Yes Cosmo Nieves LEVOTHYROXI NE 75 MCG 2022-08 0- 00:00: 00 Yes 75 Cosmo Nieves TAKE 1 TABLET BY MOUTH ONCE DAILY 2022-08 0- 00:00: 00 12-27 00:00 :00 No 10 Cosmo Nieves TAKE 1 TABLET DAILY. 2022-08 0 00:00: 00 12-27 00:00 :00 No 20 [...] 75 Cosmo Nieves LEVOTHYROXI NE 75 MCG 0 9-10 00:00: 00 Yes 75 Cosmo Nieves [...] 10-325 MG 0 7-03 00:00: 00 Yes [id number] Cosmo Nieves APPLY A NICKEL THICK LAYER TO WOUND EDGE TO EDGE ONCE A DAY 0 6-20 00:00: 00 Yes Cosmo Nieves TAKE 1 TABLET BY MOUTH TWICE DAILY 6-05 00:00: 00 Yes Cosmo Nieves SODIUM CHLORIDE 0.9% IRRIG. 6- 00:00: 00 Yes Cosmo Nieves TAKE ONE CAPSULE BY MOUTH EVERY DAY FOR 7 DAYS - 00:00: 00 Yes Cosmo Neives APLY THIN LAYER TO WOUND EVERY DAY DIRECTED -15 00:00: 00 Yes Cosmo Nieves APPLY TO WOUNDS 5 MINS BEFORE WOUND CARE DIRECTED 15 00:00: 00 Yes Cosmo Nieves CEPHALEXIN 500 MG CAPSULE -15 00:00: 00 Yes Cosmo Nieves SILVER SULFADIAZIN E 1% CREAM -04 00:00: 00 Yes Cosmo Nieves HYDROCODONE -ACETAMIN 10-325 MG 5- 00:00: 00 Yes Cosmo Nieves CEPHALEXIN 500 MG CAPSULE - 00:00: 00 Yes Cosmo Nieves TAKE 1 TABLET BY MOUTH EVERY 4 TO 6 HOURS FOR 7 DAYS NEEDED -21 00:00: 00 Yes Cosmo Nieves HYDROCODONE -ACETAMIN 10-325 MG 4-12 00:00: 00 Yes Cosmo Nieves METFORMIN HCL 1,000 MG 1-08 00:00: 00 Yes Cosmo Nieves LEVOTHYROXI NE 75 MCG 1-07 00:00: 00 Yes Cosmo Nieves TIZANIDINE HCL 4 MG -07 00:00: 00 Yes Cosmo Nieves TAKE 1 TABLET TWICE DAILY. -07 00:00: 00 12-27 00:00 :00 No 100 Cosmo Nieves TAKE 1 TABLET DAILY. - 00:00: 00 12-27 00:00 :00 No 25 Cosmo Nieves TAKE 1 TABLET DAILY. -07 00:00: 00 12-27 00:00 :00 No 100 Cosmo Nieves TAKE 1 TABLET BY MOUTH TWICE A DAY - 00:00: 00 12-27 00:00 :00 No 10 Cosmo Nieves TAKE 1 TABLET DAILY. 2021-08 2-20 00:00: 00 No TAKE 1 TABLET DAILY. 2021-08 2 00:00: 00 12-27 00:00 :00 No 25 Cosmo Nieves ACETAMINOPH EN-COD #3 2021-08 0- 00:00: 00 Yes [id number] Cosmo Nieves TAKE 1 TABLET BY MOUTH DAILY 04-14 00:00: 00 No TAKE 1 TABLET BY MOUTH DAILY 04-14 00:00: 00 Yes Cosmo Nieves TIZANIDINE HCL 4 MG TABLET 04-10 00:00: 00 No TIZANIDINE HCL 4 MG TABLET 04-10 00:00: 00 Yes Cosmo Nieves METFORMIN HCL 1,000 MG 04-08 00:00: 00 Yes 1000 Cosmo Nieves TAKE 1 TABLET BY MOUTH DAILY 04-08 00:00: 00 Yes Cosmo Nieves METOPROLOL TARTRATE 100 MG 04-08 00:00: 00 Yes 100 Cosmo Nieves TAKE 1 TABLET BY MOUTH TWICE DAILY 04-08 00:00: 00 Yes Cosmo Nieves TAKE 1 TABLET BY MOUTH DAILY 04-08 00:00: 00 Yes Cosmo Nieves &lt 03-10 00:00: 00 No 4 TAKE 1 TABLET BY MOUTH EVERY DAY 0 03-10 00:00: 00 No 750 TAKE 1 TABLET BY MOUTH DAILY 03-10 00:00: 00 No 75 &lt 0 03-10 00:00: 00 No 4 TAKE 1 TABLET BY MOUTH EVERY DAY 0 03-10 00:00: 00 No 750 TAKE 1 TABLET BY MOUTH DAILY 03-10 00:00: 00 No 75 &lt 0 03-10 00:00: 00 Yes 4 Cosmo Nieves TAKE 1 TABLET BY MOUTH EVERY DAY 03-10 00:00: 00 Yes 750 Cosmo Nieves TAKE 1 TABLET BY MOUTH DAILY 03-10 00:00: 00 Yes 75 Cosmo Nieves TAKE 1 TABLET BY MOUTH TWICE DAILY 03-06 00:00: 00 No 10 TAKE 1 TABLET BY MOUTH TWICE DAILY 03-06 00:00: 00 No 10 TAKE 1 TABLET BY MOUTH TWICE DAILY 03-06 00:00: 00 Yes 10 Cosmo Nieves Januvia 100 mg tablet 3-18 00:00: 00 No 1mg hydrochloro thiazide 25 mg tablet 318 00:00: 00 No 1mg metoprolol tartrate 100 [...] Cosmo Nieves metoprolol tartrate 100 mg tablet 18 00:00: 00 Yes 1mg Cosmo Nieves metformin 1,000 mg tablet 318 00:00: 00 Yes 1mg Cosmo Nieves glipizide 10 mg tablet 18 00:00: 00 Yes 1mg Cosmo Nieves tizanidine 4 mg tablet 3-18 00:00: 00 Yes 1mg Cosmo Nieves levothyroxi ne 75 mcg tablet 18 00:00: 00 Yes 1mcg Cosmo Nieves Dose Unknown 3-18 00:00: 00 Yes Cosmo Nieves LEUCOVORIN CALCIUM 5 MG 2- 00:00: 00 Yes 5 Cosmo Nieves TAKE 6 TABLETS BY MOUTH 1 TIME A WEEK 2- 00:00: 00 Yes Cosmo Nieves amoxicillin 500 mg tablet 1- 00:00: 00 No 1mg amoxicillin 500 mg tablet - 00:00: 00 No 1mg amoxicillin 500 mg tablet - 00:00: 00 Yes 1mg Cosmo Nieves levofloxaci n 750 mg tablet 1- 00:00: 00 No 1mg levofloxaci n 750 mg tablet 1- 00:00: 00 No 1mg levofloxaci n 750 mg tablet 1- 00:00: 00 Yes 1mg Cosmo Nieves Januvia [...] No 1mcg Januvia 100 mg tablet 2020-08 2- 00:00: 00 No 1mg TAKE 1 TABLET DAILY. 2020-08 2- 00:00: 00 No metoprolol tartrate 100 mg tablet 2020-08 2- 00:00: 00 No 1mg metformin 1,000 mg tablet 2020-08 2- 00:00: 00 No 1mg glipizide 10 mg tablet 2020-08 00:00: 00 No 1mg tizanidine 4 mg tablet 2020-08 00:00: 00 No 1mg levothyroxi ne 75 mcg tablet 2020-08 00:00: 00 No 1mcg Januvia 100 mg tablet 2020-08 00:00: 00 Yes 1mg Cosmo Nieves TAKE 1 TABLET DAILY. 2020-08 00:00: 00 Yes Cosmo Nieves metoprolol tartrate 100 mg tablet 2020-08 00:00: 00 Yes 1mg Cosmo Nieves metformin 1,000 mg tablet 2020-08 00:00: 00 Yes 1mg Cosmo Nieves glipizide 10 mg tablet 2020-08 00:00: 00 Yes 1mg Cosmo Nieves tizanidine 4 mg tablet 2020-08 00:00: 00 Yes 1mg Cosmo Nieves levothyroxi ne 75 mcg tablet 2020-08 00:00: 00 Yes 1mcg Cosmo Nieves metformin 1,000 mg tablet 2020-08 [...] 2020-08 00:00: 00 Yes 1mg Cosmo Nieves tc 99m-sulfur colloid oral solution 1 millicurie 2020-08 18:30: 00 07-04 14:20 :00 No [id number] 1mCi 1 millicurie , Oral, ONCE, 1 dose, On Wed07/04/21 at 1230, Routine [facility] NaCl 0.9% (NS) bolus infusion 1,000 mL 2020-08 18:30: 00 06-11 18:21 :00 No 1000mL at 999 mL/hr, 1,000 mL, IV Infusion, ONCE, 1 dose, On Wed06/11/21 at 1330, STAT [facility] morpHINE injection 4 mg 2020-08 18:15: 00 06-11 17:17 :00 No 4mg 4 mg, Slow IV Push, ONCE, 1 dose, On Wed06/11/21 at 1315, STAT [facility] proMETHazin e (PHENERGAN) 25 mg in NaCl 0.9% (NS) 50 mL piggyback 2020-08 17:30: 00 06-11 17:30 :00 No 25mg 25 mg, IV Piggyback, ONCE, 1 dose, On Wed06/11/21 at 1230, 50 mL [facility] metoclopram michelle HCl (REGLAN) injection 10 mg 2020-08 16:45: 00 06-11 15:39 :00 No 10mg 10 mg, Slow IV Push, ONCE, 1 dose, On Wed06/11/21 at 1145, ALIREZA [facility] No known medications 2020-08 0 10:18: 39 No [facility] Januvia 100 mg tablet 2020-08 0 00:00: 00 No 1mg Januvia 100 mg tablet 2020-08 0 00:00: 00 No 1mg Januvia 100 mg tablet 2020-08 0 00:00: 00 Yes 1mg Cosmo Nieves Januvia 100 mg tablet 04-24 00:00: 00 No 1mg Januvia 100 mg tablet 04-24 00:00: 00 No 1mg Januvia 100 mg tablet 04-24 00:00: 00 Yes 1mg Cosmo Nieves TAKE 1 TABLET DAILY. 04-14 [...] mcg tablet 04-14 00:00: 00 No 1mcg TAKE 1 TABLET DAILY. 04-14 00:00: 00 Yes Cosmo Nieves metoprolol tartrate 100 mg tablet 04-14 00:00: 00 Yes 1mg Cosmo Veronica Nieves metformin 1,000 mg tablet 04-14 00:00: 00 Yes 1mg Cosmo Nieves glipizide 10 mg tablet 04-14 00:00: 00 Yes 1mg Cosmo Nieves tizanidine 4 mg tablet 04-14 00:00: 00 Yes 1mg Cosmo Nieves levothyroxi ne 75 mcg tablet 04-14 00:00: 00 Yes 1mcg Cosmo Nieves hydrochloro [...] 01-09 00:00: 00 Yes 1mcg Cosmo Nieves metformin 500 mg tablet 2-17 00:00: 00 No 1mg hydrochloro thiazide 25 mg tablet 2-17 00:00: 00 No 1mg metoprolol tartrate 100 mg tablet 2- 00:00: 00 No 1mg metformin 1,000 mg tablet 2- 00:00: 00 No 1mg glipizide 10 mg tablet 2- 00:00: 00 No 1mg tizanidine 4 mg tablet 2 00:00: 00 No 1mg levothyroxi ne 75 mcg tablet 2 00:00: 00 No 1mcg metformin 500 mg tablet 2 00:00: 00 No 1mg hydrochloro thiazide 25 mg tablet 2 00:00: 00 No 1mg metoprolol tartrate 100 mg tablet 2- 00:00: 00 No 1mg metformin 1,000 mg tablet 10-02 00:00: 00 No 1mg glipizide 10 mg tablet 2 00:00: 00 No 1mg tizanidine 4 mg tablet 2 00:00: 00 No 1mg levothyroxi ne 75 mcg tablet 2 00:00: 00 No 1mcg metformin 500 mg tablet 2- 00:00: 00 Yes 1mg Cosmo Nieves hydrochloro thiazide 25 mg tablet 2- 00:00: 00 Yes 1mg Cosmo Nieves metoprolol tartrate 100 mg tablet 2-17 00:00: 00 Yes 1mg Cosmo Nieves metformin 1,000 mg tablet 2-17 00:00: 00 Yes 1mg Cosmo Nieves glipizide 10 mg tablet 2- 00:00: 00 Yes 1mg Cosmo Nieves tizanidine 4 mg tablet 2-17 00:00: 00 Yes 1mg Cosmo Nieves levothyroxi ne 75 mcg tablet 2- 00:00: 00 Yes 1mcg Cosmo Nieves metformin [...] 2mg Cosmo Nieves metformin 1,000 mg tablet 01-29 00:00: 00 [...] 10-29 00:00: 00 Yes 1mcg Cosmo Nieves lisinopril [...] mg tablet 10-23 00:00: 00 Yes 1mg Comso Nieves metformin 500 mg tablet 10-23 00:00: [...] Systolic blood pressure 2021-06-11 18:27:00 155 mm[Hg] [facility] Diastolic blood pressure 2021-06-11 18:27:00 85 mm[Hg] [facility] Heart rate 2021-06-11 18:27:00 62 /min [facility] Respiratory rate 2021-06-11 18:27:00 18 /min [facility] Oxygen saturation in Arterial blood by Pulse oximetry 2021-06-11 18:27:00 100 /min [facility] Body temperature 2021-06-11 14:37:00 36.33 Gabriella [facility] Body height 2021-06-11 14:37:00 180.3 cm [facility] Body weight 2021-06-11 14:37:00 176.903 kg [facility] BMI 2021-06-11 14:37:00 54.39 kg/m2 [facility] BP Systolic 2024-10-31 14:10:00 133 mm[Hg] Step hen F Ezequiel BP Diastolic 2024-10-31 14:10:00 85 mm[Hg] Gregorio phen F Ezequiel Weight Measured 2024-10-31 14:10:00 339.20 pounds Cosmo Nieves Height Measured 2024-10-31 14:10:00 70.00 inches Cosmo Nieves Body Temperature 2024-10-31 14:10:00 97.60 degrees Cosmo F Ezequiel Heart Rate 2024-10-31 14:10:00 85.00 /min Anabela en F Ezequiel Respiratory Rate 2024-10-31 14:10:00 18.00 /min Cosmo F Ezequiel BP Systolic 2024-08-08 08:49:00 148 mm[Hg] Step hen F Ezequiel BP Diastolic 2024-08-08 08:49:00 97 mm[Hg] Gregorio phen F Ezequiel Weight Measured 2024-08-08 08:49:00 349.20 pounds Cosmo Veronica Nieves Height Measured 2024-08-08 08:49:00 70.00 inches Cosmo Veronica Nieves Body Temperature 2024-08-08 08:49:00 101.50 degrees Cosmo F Ezequiel Heart Rate 2024-08-08 08:49:00 89.00 /min Anabela en F Ezequiel Respiratory Rate 2024-08-08 08:49:00 18.00 /min Cosmo F Ezequiel BP Systolic 2024-08-08 08:43:00 148 mm[Hg] Step hen F Ezequiel BP Diastolic 2024-08-08 08:43:00 97 mm[Hg] Gregorio phen F Ezequiel Weight Measured 2024-08-08 08:43:00 349.20 pounds Cosmo F Ezequiel Height Measured 2024-08-08 08:43:00 70.00 inches Cosmo F Ezequiel Body Temperature 2024-08-08 08:43:00 101.50 degrees Cosmo [...] Ezequiel Heart Rate 2024-08-02 14:30:00 99.00 /min Anablea en F Ezequiel Respiratory Rate 2024-08-02 14:30:00 [...] Ezequiel Respiratory Rate 2022-04-08 09:46:00 16.00 /min Comso F Ezequiel BP Systolic 2021-10-31 14:46:00 142 mm[Hg] Step hen F Ezequiel BP Diastolic 2021-10-31 14:46:00 85 mm[Hg] Gregorio phen F Ezequiel Weight Measured 2021-10-31 14:46:00 381.60 pounds Csomo F Ezequiel Height Measured 2021-10-31 14:46:00 70.00 [...] Respiratory Rate 2021-08-21 14:16:00 Cosmo F Ezequiel Body Temperature 2021-07-18 10:05:00 98.10 degrees Cosmo F Ezequiel Heart Rate 2021-07-18 10:05:00 72.00 /min Anabela en F Ezequiel Respiratory Rate 2021-07-18 10:05:00 Cosmo F Ezequiel BP Systolic 2021-07-18 10:05:00 144 mm[Hg] Step hen F Ezequiel BP Diastolic 2021-07-18 10:05:00 83 mm[Hg] Gregorio phen F Ezequiel Weight Measured 2021-07-18 10:05:00 378.20 pounds Cosmo F Ezequiel Height Measured 2021-07-18 10:05:00 70.00 inches Cosmo F Ezequiel BP Systolic 2021-04-14 10:28:00 [...] OF BENEFITS 2022-06-08 17:00:19 Docto r Unassigned, [place] [facility] NM GASTRIC EMPTYING 2021-07-04 18:24:04 Vern Severino [facility] POCT TEST 2021-06-11 15:59:00 Gris Sanchez [facility] URINALYSIS 2021-06-11 15:58:00 Gris Sanchez [facility] LIPASE 2021-06-11 15:33:00 Gris Sanchez [facility] COMP. METABOLIC PANEL (78488) 2021-06-11 15:33:00 Gris Sanchez [facility] CBC WITH DIFF 2021-06-11 15:33:00 Gris Sanchez [facility] COVID-19 (ID NOW RAPID TESTING) 2021-06-11 15:33:00 Gris Sanchez [facility] NOTICE OF PRIVACY PRACTICES 2021-06-11 14:33:32 Doctor Unassigned, [place] [facility] CONSENT/REFUSAL FOR DIAGNOSIS AND TREATMENT 2021-06-11 14:26:41 Doctor Unassigned, [place] [facility] US ABDOMEN COMPLETE 2020-12-19 16:56:42 Vern Severino [facility] PATIENT FINANCIAL POLICY 2020-12-19 16:06:19 Doctor Unassigned, [place] [facility] NOTICE OF PRIVACY PRACTICES 2020-12-19 16:05:57 Doctor Unassigned, [place] [facility] CONSENT/REFUSAL FOR DIAGNOSIS AND TREATMENT 2020-12-19 16:05:36 Doctor Unassigned, [place] [facility] ASSIGNMENT OF BENEFITS 2020-12-19 16:05:11 Docto r Unassigned, [place] [facility] Ekg 2020-07-06 00:00:00 Cosmo Nieves 58082 Ecg Routine Ecg W/least 12 Lds W/i r 2016-01-25 00:00:00 Cosmo Nieves Plan of Care Planned Activity Planned Date Details Comments Source Goal Plan of Care Note [code = 57460-5] Goal Plan of Care Note [code = 07342-8] Goal Plan of Care Note [code = 26480-7] Goal Plan of Care Note [code = 28815-4] Goal Plan of Care Note [code = 17300-3] Goal Plan of Care Note [code = 21726-7] Goal Plan of Care Note [code = 45124-8] Goal Plan of Care Note [code = 13464-8] Goal Plan of Care Note [code = 74767-8] Goal Plan of Care Note [code = 69847-2] Goal Plan of Care Note [code = 33977-6] Goal Plan of Care Note [code = 01290-4] Goal Plan of Care Note [code = 36366-7] Goal Plan of Care Note [code = 69935-0] Goal Plan of Care Note [code = 03018-3] Goal Plan of Care Note [code = 90356-8] Goal Plan of Care Note [code = 55345-8] Goal Plan of Care Note [code = 14532-6] Goal Plan of Care Note [code = 66559-5] Goal Plan of Care Note [code = 39227-4] Goal Plan of Care Note [code = 87135-1] Goal Plan of Care Note [code = 15318-3] Goal Plan of Care Note [code = 62939-8] Goal Plan of Care Note [code = 81984-0] Goal Plan of Care Note [code = 53661-0] Goal Plan of Care Note [code = 15850-2] Goal Plan of Care Note [code = 21112-4] Goal Plan of Care Note [code = 91197-4] Goal Plan of Care Note [code = 11302-1] Goal Plan of Care Note [code = 49814-0] Goal Plan of Care Note [code = 13027-7] Goal Plan of Care Note [code = 03894-0] Goal Plan of Care Note [code = 12558-5] Goal Plan of Care Note [code = 77771-5] Goal Plan of Care Note [code = 90953-5] Goal Plan of Care Note [code = 67965-1] Goal Plan of Care Note [code = 68309-5] Goal Plan of Care Note [code = 28495-6] Goal Plan of Care Note [code = 99015-0] Goal Plan of Care Note [code = 35581-3] Goal Plan of Care Note [code = 89909-8] Goal Plan of Care Note [code = 07420-2] Goal Plan of Care Note [code = 70518-9] Goal Plan of Care Note [code = 46885-4] Goal Plan of Care Note [code = 00086-6] Goal Plan of Care Note [code = 85130-5] Goal Plan of Care Note [code = 21744-9] Goal Plan of Care Note [code = 89175-1] Goal Plan of Care Note [code = 18337-6] Goal Plan of Care Note [code = 47603-4] Goal Plan of Care Note [code = 44805-1] Goal Plan of Care Note [code = 37203-4] Goal Plan of Care Note [code = 18965-1] Goal Plan of Care Note [code = 44075-7] Goal Plan of Care Note [code = 18120-3] Goal Plan of Care Note [code = 11697-1] Goal Plan of Care Note [code = 03279-3] Goal Plan of Care Note [code = 64462-2] Encounters Start Date/Time End Date/Time Encounter Type Admission Type Attending [facility] Care Department Encounter ID Source 2023-11-02 13:51:31 Outpatient R [facility] [id number] [facility] 2024-10-31 13:53:56 2024-10-31 13:53:56 Outpatient [facility] [id number] Cosmo Nieves 2024-10-31 00:00:00 2024-10-31 00:00:00 Outpatient Visit SFA [id number] Cosmo Nieves 2024-08-08 08:31:57 2024-08-08 08:31:[address] [facility] [id number] Cosmo Nieves 2024-08-08 00:00:00 2024-08-08 00:00:00 Outpatient Visit SFA [id number] Cosmo Nieves 2024-08-02 14:30:19 2024-08-02 14:30:[address] [facility] [id number] Cosmo Nieves 2024-08-02 00:00:00 2024-08-02 00:00:00 Outpatient Visit [facility] [id number] Cosmo Nieves 2024-02-10 10:19:21 2024-02-10 10:19:[address] [facility] [id number] Cosmo Nieves 2024-02-10 00:00:00 2024-02-10 00:00:00 Outpatient Visit SFA [id number] Cosmo Nieves 2023-10-11 19:54:00 2023-10-11 23:40:00 emergency [facility] [id number] 2023-10-11 19:54:00 2023-10-11 23:40:00 Emergency ER ANGÉLICA DIGGS [facility] [id number] [facility]-24 14:39:56 2023-05-24 14:39:56 Outpatient [facility] [id number] Cosmo Nieves 2022-08-22 13:20:07 2022-08-22 13:20:07 Outpatient [facility] [id number] Cosmo Nieves 2022-08-04 00:00:00 2022-08-04 00:00:00 Outpatient Visit [id number] 2022-06-08 12:01:41 2022-06-08 23:59:00 Outpatient R DALLAS AGUILAR [facility] [id number] [facility] 2022-06-08 00:00:00 2022-06-08 00:00:00 Orders Only Doctor Unassigned, [place] [facility] [id number] [facility] 2022-04-08 00:00:00 2022-04-08 00:00:00 Outpatient Visit [id number] 2021-07-04 07:46:12 2021-07-04 23:59:00 Outpatient R VERN SOLANO [facility] [id number] [facility] 2021-07-04 07:46:12 2021-07-04 23:59:00 Hospital Encounter Vern Solano [facility] .[id number] [facility] 2021-07-02 00:00:00 2021-07-02 00:00:00 Outpatient R VERN SOLANO [facility] [id number] [facility] 2021-07-02 00:00:00 2021-07-02 00:00:00 Outpatient R VERN SOLANO [facility] [id number] [facility] 2021-06-12 00:00:00 2021-06-12 00:00:00 Patient Secure Msg Doctor Unassigned, [place] [facility] 1.20.114 [id number] [facility] 2021-06-11 09:37:00 2021-06-11 13:28:00 Emergency Gris Sanchez S [facility] [id number] [id number] [facility] 2021-06-11 09:37:00 2021-06-11 13:28:00 Emergency X GRIS SANCHEZ [facility] ERT [id number] [facility] 2020-12-19 11:07:11 2020-12-19 23:59:00 Hospital Encounter Vern Solano [facility] [id number] [facility] 2020-12-19 00:00:00 2020-12-19 00:00:00 Outpatient R VERN SOLANO [facility] [id number] [facility] 2020-12-19 00:00:00 2020-12-19 00:00:00 Orders Only Doctor Unassigned, [facility] [id number] [id number] [facility] 2020-11-26 23:25:00 2020-11-27 04:52:00 Emergency ER BRISSA BETANCUR [facility] [id number] [facility] 2019-04-15 17:08:00 2019-04-15 18:33:00 Emergency ER POLO PATTERSON [facility] [id number] [facility] 2013-01-13 07:43:00 2013-01-13 10:09:00 Emergency ER BRISSA BETANCUR [facility] [id number] [facility] Results Test Description Test Time Test Comments Results Result Co mments Source ALBUMIN/CREATININE RATIO, URINE, [id number] 04:13:59* Test Item Value Reference Range Interpretation Comme nts CREATININE, URINE, CONC. (test code = 2072) 190.2 MG/DL NOT ESTAB ALBUMIN, URINE, RANDOM (test code = 59900) 1.9 MG/DL NOT ESTAB CALC ALBUMIN/CREAT, RND (test code = 90268) 10 MG/G <30 Note: Albumin/Cr eatinine ratio reference interval reflects ADA and NKF guidelines. UNLESS OTHERWISE INDICATED, ALL TESTING PERFORMED AT [facility] [address] [place] [address] PHYSICAL THERAPY TECHNICIAN: SHWETHA FLOWERS M.D. CLIA NUMBER [id number] [place]. [id number] COMPREHENSIVE METABOLIC [id number] 04:12:53* Test Item Value Reference Range Interpretation Comme nts GLUCOSE (test code = 2217) 145 MG/DL 70-99 H BUN (test code = 2208) 8 MG/DL 6-20 CREATININE (test code = 2214) 0.84 MG/DL 0.60-1.30 eGFR (2020 CKD-EPI) (test co de = 91972) 89 ML/MIN/1.73 >60 CALC BUN/CREAT (test code = 2235) 10 RATIO 6-28 SODIUM (test code = 2231) 140 MEQ/L 133-146 POTASSIUM (test code = [...] 1.9-3.7 CALC A/G RATIO (test code = 223) 1.6 RATIO 1.0-2.6 BILIRUBIN, TOTAL (test code = 2206) 0.5 MG/DL <=1.2 ALKALINE PHOSPHATASE (test code = 2203) 75 U/L 40-113 AST (test code = 2217) 29 U/L 9-40 ALT (test code = 2218) 32 U/L 5-40 LIPID [id number] 04:12:53* Test Item Value Reference Range Interpretation Comme nts CHOLESTEROL (test code = 2209) 208 MG/DL <200 H TRIGLYCERIDES (test code = 2231) 145 MG/DL <150 HDL CHOLESTEROL (test code = 2219) 50 MG/DL >39 CALC LDL CHOL (test code = 2236) 132 MG/DL <100 H NOTE: CALCULATED LDL IS BASED ON LIANNE-REYES METHOD WHICHINCLUDES ADJUSTABLE TRIGLYCERIDE:VLDL CHOLESTEROL RATIO.THIS FACTOR VARIES BY MEASURED TRIGLYCERIDE AND NON-HDLCHOLESTEROL CONCENTRATIONS WITH INCREASED CALCULATED LDL SEENIN HIGHER TRIGLYCERIDE OR LOWER NON-HDL SPECIMENS. FOR MOREINFORMATION, SEE CLIENT ANNOUNCEMENT AT [email or web address] RISK RATIO LDL/HDL (test code = 2237) 2.64 RATIO <3.22 CBC W/AUTO DIFF WITH [id number] 03:32:38* Test Item Value Reference Range Interpretation [...] = 1065) 0.0 /100 WBC'S See_Comment [Automated QuantiaMDa ge] The system which generated this result [...] 0.00-0.10 ABS NUCLEATED RBCS (test code = 65054) 0.00 K/UL 0.00-0.11 CBC W/AUTO [id number] 00:00:00* Test Item Value Reference Range Interpretation [...] ABS NUCLEATED RBCS (test cod e = 04219) 0.00 K/UL Cosmo NievesCOMPREHENSIVE METABOLIC [id number] 00:00:00* Test Item Value Reference Range Interpretation Comme nts GLUCOSE (test code = 2217) 145 MG/DL BUN (test code = 2208) 8 MG/DL CREATININE (test code = 2214) 0.84 MG/DL eGFR (2020 CKD-EPI) (test co de = 42690) 89 ML/MIN/1.73 CALC BUN/CREAT (test code = [...] MG/DL ALKALINE PHOSPHATASE (test code = 2204) 75 U/L AST (test code = 2218) 29 U/L ALT (test code = 2219) 32 U/L Cosmo NievesLIPID [id number] 00:00:00* Test Item Value Reference Range Interpretation Comme nts CHOLESTEROL (test code = 2210) 208 MG/DL TRIGLYCERIDES (test code = 2232) 145 MG/DL HDL CHOLESTEROL (test code = 2220) 50 MG/DL CALC LDL CHOL (test code = 2237) 132 MG/DL RISK RATIO LDL/HDL (test cod e = 2238) 2.64 RATIO Cosmo NievesHEMOGLOBIN [id number] 00:00:00* Test Item Value Reference Range Interpretation Comme parisa HEMOGLOBIN A1c (test code = 51529) 6.5 % Cosmo NievesALBUMIN/CREATININE RATIO, RANDOM [id number] 00:00:00* Test Item Value Reference Range Interpretation Comme parisa CREATININE, URINE, CONC. (te st code = 2072) 190.2 MG/DL ALBUMIN, URINE, RANDOM (test code = 56813) 1.9 MG/DL CALC ALBUMIN/CREAT, RND (naz t code = 53772) 10 MG/G Cosmo NievesCBC W/AUTO [id number] 00:00:00* Test Item Value Reference Range Interpretation [...] ABS NUCLEATED RBCS (test cod e = 14688) 0.00 K/UL Cosmo NievesCOMPREHENSIVE METABOLIC [id number] 00:00:00* Test Item Value Reference Range Interpretation Comme nts GLUCOSE (test code = 2217) 145 MG/DL BUN (test code = 2208) 8 MG/DL CREATININE (test code = 2214) 0.84 MG/DL eGFR (2020 CKD-EPI) (test co de = 88174) 89 ML/MIN/1.73 CALC BUN/CREAT (test code = [...] MG/DL ALKALINE PHOSPHATASE (test code = 2204) 75 U/L AST (test code = 2218) 29 U/L ALT (test code = 2219) 32 U/L Cosmo NievesLIPID [id number] 00:00:00* Test Item Value Reference Range Interpretation Comme nts CHOLESTEROL (test code = 2210) 208 MG/DL TRIGLYCERIDES (test code = 2232) 145 MG/DL HDL CHOLESTEROL (test code = 2220) 50 MG/DL CALC LDL CHOL (test code = 2237) 132 MG/DL RISK RATIO LDL/HDL (test cod e = 2238) 2.64 RATIO Cosmo NievesHEMOGLOBIN [id number] 00:00:00* Test Item Value Reference Range Interpretation Comme parisa HEMOGLOBIN A1c (test code = 08325) 6.5 % Cosmo NievesALBUMIN/CREATININE RATIO, RANDOM [id number] 00:00:00* Test Item Value Reference Range Interpretation Comme nts CREATININE, URINE, CONC. (te st code = 2072) 190.2 MG/DL ALBUMIN, URINE, RANDOM (test code = 99703) 1.9 MG/DL CALC ALBUMIN/CREAT, RND (naz t code = 36882) 10 MG/G Cosmo NievesTSH, THIRD [id number] 04:23:34* Test Item Value Reference Range Interpretation Comme nts TSH, THIRD GENERATION (test code = 2821) 3.690 UIU/ML 0.400-4.100 UNLESS OTHERWISE INDICATED, ALL TESTING PERFORMED AT [facility] [address] [place] [address] PHYSICAL THERAPY TECHNICIAN: SHWETHA FLOWERS M.D. CLIA NUMBER [id number] [place]. [id number] COMPREHENSIVE METABOLIC [id number] 04:19:53* Test Item Value Reference Range Interpretation Comme nts GLUCOSE (test code = 2217) 220 MG/DL 70-99 H BUN (test code = 2207) 11 MG/DL 6-20 CREATININE (test code = 2214) 0.74 MG/DL 0.60-1.30 eGFR (2020 CKD-EPI) (test code = 92919) 104 ML/MIN/1.73 >60 CALC BUN/CREAT (test code = 2235) 15 RATIO 6-28 SODIUM (test code = 223) [...] code = 2219) 44 U/L 5-40 H LIPID [id number] 04:19:53* Test Item Value Reference Range Interpretation [...] SPECIMENS. FOR MOREINFORMATION, SEE CLIENT ANNOUNCEMENT AT [email or web address] RISK RATIO LDL/HDL (test code = 2238) 2.94 RATIO <3.22 HEMOGLOBIN [id number] 04:16:59* Test Item Value Reference Range Interpretation Comme nts HEMOGLOBIN A1c (test code = 85357) 8.6 % 4.2-5.6 H [employer] GUIDELINES FOR HGB A1C: [...] OR LABORATORY CONSULTATION. CBC W/AUTO DIFF WITH [id number] 02:14:16* Test Item Value Reference Range Interpretation [...] = 1065) 0.0 /100 WBC'S See_Comment [Automated QuantiaMDa ge] The system which generated this result [...] 0.00-0.10 ABS NUCLEATED RBCS (test code = 97612) 0.00 K/UL 0.00-0.11 HEMOGLOBIN [id number] 00:00:00* Test Item Value Reference Range Interpretation Comme nts HEMOGLOBIN A1c (test code = 49758) 8.6 % Cosmo Martin AustinLIPID [id number] 00:00:00* Test Item Value Reference Range Interpretation Comme nts CHOLESTEROL (test code = 2210) 228 MG/DL TRIGLYCERIDES (test code = 2232) 210 MG/DL HDL CHOLESTEROL (test code = 2220) 49 MG/DL CALC LDL CHOL (test code = 2237) 144 MG/DL RISK RATIO LDL/HDL (test cod e = 2238) 2.94 RATIO Cosmo NievesCBC W/AUTO [id number] 00:00:00* Test Item Value Reference Range Interpretation [...] ABS NUCLEATED RBCS (test cod e = 71514) 0.00 K/UL Cosmo NievesCOMPREHENSIVE METABOLIC [id number] 00:00:00* Test Item Value Reference Range Interpretation Comme nts GLUCOSE (test code = 2217) 220 MG/DL BUN (test code = 2208) 11 MG/DL CREATININE (test code = 2214) 0.74 MG/DL eGFR (2020 CKD-EPI) (test code = 74841) 104 ML/MIN/1.73 CALC BUN/CREAT (test code = [...] = 2219) 44 U/L Cosmo NievesTSH, THIRD [id number] 00:00:00* Test Item Value Reference Range Interpretation Comme nts TSH, THIRD GENERATION (test code = 2821) 3.690 UIU/ML Cosmo NievesHEMOGLOBIN [id number] 00:00:00* Test Item Value Reference Range Interpretation Comme nts HEMOGLOBIN A1c (test code = 09410) 8.6 % Cosmo NievesLIPID [id number] 00:00:00* Test Item Value Reference Range Interpretation Comme nts CHOLESTEROL (test code = 2210) 228 MG/DL TRIGLYCERIDES (test code = 2232) 210 MG/DL HDL CHOLESTEROL (test code = 2220) 49 MG/DL CALC LDL CHOL (test code = 2237) 144 MG/DL RISK RATIO LDL/HDL (test cod e = 2238) 2.94 RATIO Cosmo NievesCBC W/AUTO [id number] 00:00:00* Test Item Value Reference Range Interpretation [...] ABS NUCLEATED RBCS (test cod e = 74973) 0.00 K/UL Cosmo NievesCOMPREHENSIVE METABOLIC [id number] 00:00:00* Test Item Value Reference Range Interpretation Comme nts GLUCOSE (test code = 2217) 220 MG/DL BUN (test code = 2208) 11 MG/DL CREATININE (test code = 2214) 0.74 MG/DL eGFR (2020 CKD-EPI) (test code = 10386) 104 ML/MIN/1.73 CALC BUN/CREAT (test code = [...] (test code = 2219) 44 U/L Cosmo Da SilvaH, THIRD [id number] 00:00:00* Test Item Value Reference Range Interpretation Comme parisa TSH, THIRD GENERATION (test code = 2821) 3.690 UIU/ML Cosmo NievesHEMOGLOBIN [id number] 00:00:00* Test Item Value Reference Range Interpretation Comme nts HEMOGLOBIN A1c (test code = 13900) 8.6 % Cosmo NievesLIPID [id number] 00:00:00* Test Item Value Reference Range Interpretation Comme nts CHOLESTEROL (test code = 2210) 228 MG/DL TRIGLYCERIDES (test code = 2232) 210 MG/DL HDL CHOLESTEROL (test code = 2220) 49 MG/DL CALC LDL CHOL (test code = 2237) 144 MG/DL RISK RATIO LDL/HDL (test cod e = 2238) 2.94 RATIO Cosmo NievesCBC W/AUTO [id number] 00:00:00* Test Item Value Reference Range Interpretation [...] ABS NUCLEATED RBCS (test cod e = 10672) 0.00 K/UL Cosmo NievesCOMPREHENSIVE METABOLIC [id number] 00:00:00* Test Item Value Reference Range Interpretation Comme nts GLUCOSE (test code = 2217) 220 MG/DL BUN (test code = 2208) 11 MG/DL CREATININE (test code = 2214) 0.74 MG/DL eGFR (2020 CKD-EPI) (test code = 06739) 104 ML/MIN/1.73 CALC BUN/CREAT (test code = [...] = 2219) 44 U/L Cosmo Obrien, THIRD [id number] 00:00:00* Test Item Value Reference Range Interpretation Comme nts TSH, THIRD GENERATION (test code = 2821) 3.690 UIU/ML Cosmo Obrien, THIRD [id number] 06:33:53* Test Item Value Reference Range Interpretation Comme nts TSH, THIRD GENERATION (test code = 2821) 1.670 UIU/ML 0.400-4.100 COMPREHENSIVE METABOLIC [id number] 05:19:24* Test Item Value Reference Range Interpretation Comme nts GLUCOSE (test code = 2217) 172 MG/DL 70-99 H BUN (test code = 2208) 12 MG/DL 6-20 CREATININE (test code = 2214) 0.68 MG/DL 0.60-1.30 eGFR (2020 CKD-EPI) (test code = ) 112 ML/MIN/1.73 >60 CALC BUN/CREAT (test code [...] = 2218) 47 U/L 5-40 H LIPID [id number] 05:19:24* Test Item Value Reference Range Interpretation Comme nts CHOLESTEROL (test code = 2209) 245 MG/DL <200 H TRIGLYCERIDES (test code = 2231) 235 MG/DL <150 H HDL CHOLESTEROL (test code = 2219) 55 MG/DL >39 CALC LDL CHOL (test code = 2236) 150 MG/DL <100 H NOTE: CALCULATED LDL IS BASED ON LIANNE-ERYES METHOD WHICHINCLUDES ADJUSTABLE TRIGLYCERIDE:VLDL CHOLESTEROL RATIO.THIS FACTOR VARIES BY MEASURED TRIGLYCERIDE AND NON-HDLCHOLESTEROL CONCENTRATIONS WITH INCREASED CALCULATED LDL SEENIN HIGHER TRIGLYCERIDE OR LOWER NON-HDL SPECIMENS. FOR MOREINFORMATION, SEE CLIENT ANNOUNCEMENT AT [email or web address] RISK RATIO LDL/HDL (test code = 2237) 2.73 RATIO <3.22 ALBUMIN/CREATININE RATIO, URINE, [id number] 05:11:57* Test Item Value Reference Range Interpretation Comme nts CREATININE, URINE, CONC. (test code = 2072) 243.2 MG/DL NOT ESTAB ALBUMIN, URINE, RANDOM (test code = 60555) 4.3 MG/DL NOT ESTAB CALC ALBUMIN/CREAT, RND (test code = 08561) 18 MG/G <30 Note: Albumin/Cr eatinine ratio reference interval reflects ADA and NKF guidelines. UNLESS OTHERWISE INDICATED, ALL TESTING PERFORMED AT [facility] [facility] [address] [place] [id number] PHYSICAL THERAPY TECHNICIAN: SHWETHA FLOWERS M.D. [place] NUMBER [id number] [facility] [place]. [id number] HEMOGLOBIN [id number] 03:11:30* Test Item Value Reference Range Interpretation Comme nts HEMOGLOBIN A1c (test code = 85668) 7.2 % 4.2-5.6 H [employer]IATION GUIDELINES FOR HGB A1C: [...] ALTERNATE TESTING OR LABORATORY CONSULTATION. COMPREHENSIVE METABOLIC [id number] 00:00:00* Test Item Value Reference Range Interpretation Comme nts GLUCOSE (test code = 2217) 172 MG/DL BUN (test code = 2208) 12 MG/DL CREATININE (test code = 2214) 0.68 MG/DL eGFR (2020 CKD-EPI) (test code = 88727) 112 ML/MIN/1.73 CALC BUN/CREAT (test code = [...] (test code = 2219) 47 U/L Cosmo Da SilvaH, THIRD [id number] 00:00:00* Test Item Value Reference Range Interpretation Comme parisa TSH, THIRD GENERATION (test code = 2821) 1.670 UIU/ML Cosmo NievesHEMOGLOBIN [id number] 00:00:00* Test Item Value Reference Range Interpretation Comme parisa HEMOGLOBIN A1c (test code = 35816) 7.2 % Cosmo NievesLIPID [id number] 00:00:00* Test Item Value Reference Range Interpretation Comme nts CHOLESTEROL (test code = 2210) 245 MG/DL TRIGLYCERIDES (test code = 2232) 235 MG/DL HDL CHOLESTEROL (test code = 2220) 55 MG/DL CALC LDL CHOL (test code = 2237) 150 MG/DL RISK RATIO LDL/HDL (test cod e = 2238) 2.73 RATIO Cosmo NievesALBUMIN/CREATININE RATIO, RANDOM [id number] 00:00:00* Test Item Value Reference Range Interpretation Comme parisa CREATININE, URINE, CONC. (te st code = 2072) 243.2 MG/DL ALBUMIN, URINE, RANDOM (test code = 65512) 4.3 MG/DL CALC ALBUMIN/CREAT, RND (naz t code = 77073) 18 MG/G Cosmo NievesCOMPREHENSIVE METABOLIC [id number] 00:00:00* Test Item Value Reference Range Interpretation Comme nts GLUCOSE (test code = 2217) 172 MG/DL BUN (test code = 2208) 12 MG/DL CREATININE (test code = 2214) 0.68 MG/DL eGFR (2020 CKD-EPI) (test code = 06956) 112 ML/MIN/1.73 CALC BUN/CREAT (test code = [...] = 2219) 47 U/L Cosmo NievesTSH, THIRD [id number] 00:00:00* Test Item Value Reference Range Interpretation Comme parisa TSH, THIRD GENERATION (test code = 2821) 1.670 UIU/ML Cosmo NievesHEMOGLOBIN [id number] 00:00:00* Test Item Value Reference Range Interpretation Comme parisa HEMOGLOBIN A1c (test code = 53840) 7.2 % Cosmo NievesLIPID [id number] 00:00:00* Test Item Value Reference Range Interpretation Comme nts CHOLESTEROL (test code = 2210) 245 MG/DL TRIGLYCERIDES (test code = 2232) 235 MG/DL HDL CHOLESTEROL (test code = 2220) 55 MG/DL CALC LDL CHOL (test code = 2237) 150 MG/DL RISK RATIO LDL/HDL (test cod e = 2238) 2.73 RATIO Cosmo NievesALBUMIN/CREATININE RATIO, RANDOM [id number] 00:00:00* Test Item Value Reference Range Interpretation Comme parisa CREATININE, URINE, CONC. (te st code = 2072) 243.2 MG/DL ALBUMIN, URINE, RANDOM (test code = 03511) 4.3 MG/DL CALC ALBUMIN/CREAT, RND (naz t code = 90910) 18 MG/G Cosmo NievesCOMPREHENSIVE METABOLIC [id number] 00:00:00* Test Item Value Reference Range Interpretation Comme nts GLUCOSE (test code = 2217) 172 MG/DL BUN (test code = 2208) 12 MG/DL CREATININE (test code = 2214) 0.68 MG/DL eGFR (2020 CKD-EPI) (test code = 55382) 112 ML/MIN/1.73 CALC BUN/CREAT (test code = [...] 0.4 MG/DL ALKALINE PHOSPHATASE (test code = 220) 88 U/L AST (test code = 221) 61 U/L ALT (test code = 2219) 47 U/L Cosmo NievesTSH, THIRD [id number] 00:00:00* Test Item Value Reference Range Interpretation Comme [facility] TSH, THIRD GENERATION (test code = 2821) 1.670 UIU/ML Cosmo NievesHEMOGLOBIN [id number] 00:00:00* Test Item Value Reference Range Interpretation Comme parisa HEMOGLOBIN A1c (test code = 35129) 7.2 % Cosmo NievesLIPID [id number] 00:00:00* Test Item Value Reference Range Interpretation Comme nts CHOLESTEROL (test code = 2210) 245 MG/DL TRIGLYCERIDES (test code = 2232) 235 MG/DL HDL CHOLESTEROL (test code = 2220) 55 MG/DL CALC LDL CHOL (test code = 2237) 150 MG/DL RISK RATIO LDL/HDL (test cod e = 2238) 2.73 RATIO Cosom NievesALBUMIN/CREATININE RATIO, RANDOM [id number] 00:00:00* Test Item Value Reference Range Interpretation Comme nts CREATININE, URINE, CONC. (te st code = 2072) 243.2 MG/DL ALBUMIN, URINE, RANDOM (test code = 03260) 4.3 MG/DL CALC ALBUMIN/CREAT, RND (naz t code = 65807) 18 MG/G Cosmo NievesCOMPREHENSIVE METABOLIC [id number] 00:00:00* Test Item Value Reference Range Interpretation Comme nts GLUCOSE (test code = 2217) 172 MG/DL BUN (test code = 2208) 12 MG/DL CREATININE (test code = 2214) 0.68 MG/DL eGFR (2020 CKD-EPI) (test code = 93517) 112 ML/MIN/1.73 CALC BUN/CREAT (test code = 2235) 18 RATIO SODIUM (test code = 2231) 138 MEQ/L POTASSIUM (test code = 2228) 4.8 MEQ/L CHLORIDE (test code = 2215) 99 MEQ/L CARBON DIOXIDE (test code = 2206) 27 MEQ/L CALCIUM (test code = 2209) 9.8 MG/DL PROTEIN, TOTAL (test code = 222) 7.1 G/DL ALBUMIN (test code = 220) 4.6 G/DL CALC GLOBULIN (test code = 2240) 2.5 G/DL CALC A/G RATIO (test code = 2234) 1.8 RATIO BILIRUBIN, TOTAL (test code = 7) 0.4 MG/DL ALKALINE PHOSPHATASE (test code = 2203) 88 U/L AST (test code = 2218) 61 U/L ALT (test code = 2219) 47 U/L Cosmo NievesTSH, THIRD [id number] 00:00:00* Test Item Value Reference Range Interpretation Comme parisa TSH, THIRD GENERATION (test code = 2821) 1.670 UIU/ML Cosmo NievesHEMOGLOBIN [id number] 00:00:00* Test Item Value Reference Range Interpretation Comme nts HEMOGLOBIN A1c (test code = 52531) 7.2 % Cosmo NievesLIPID [id number] 00:00:00* Test Item Value Reference Range Interpretation Comme nts CHOLESTEROL (test code = 2210) 245 MG/DL TRIGLYCERIDES (test code = 2232) 235 MG/DL HDL CHOLESTEROL (test code = 2220) 55 MG/DL CALC LDL CHOL (test code = 2237) 150 MG/DL RISK RATIO LDL/HDL (test cod e = 2238) 2.73 RATIO Cosmo NievesALBUMIN/CREATININE RATIO, RANDOM [id number] 00:00:00* Test Item Value Reference Range Interpretation Comme nts CREATININE, URINE, CONC. (te st code = 2071) 243.2 MG/DL ALBUMIN, URINE, RANDOM (test code = 16850) 4.3 MG/DL CALC ALBUMIN/CREAT, RND (naz t code = 66375) 18 MG/G Cosmo Martin AustinHEMOGLOBIN [id number] 04:59:44* Test Item Value Reference Range Interpretation Comme nts HEMOGLOBIN A1c (test code = 65019) 6.5 % 4.2-5.6 H [employer] GUIDELINES FOR HGB A1C: [...] CONSIDER ALTERNATE TESTING OR LABORATORY CONSULTATION. LIPID [id number] 03:50:06* Test Item Value Reference Range Interpretation [...] SPECIMENS. FOR MOREINFORMATION, SEE CLIENT ANNOUNCEMENT AT [email or web address] RISK RATIO LDL/HDL (test code = 2238) 2.78 RATIO <3.22 COMPREHENSIVE METABOLIC [id number] 03:50:06* Test Item Value Reference Range Interpretation Comme nts GLUCOSE (test code = 2217) 184 MG/DL 70-99 H BUN (test code = 2208) 10 MG/DL 6-20 CREATININE (test code = 2214) 0.85 MG/DL 0.60-1.30 eGFR (2020 CKD-EPI) (test code = 22590) 89 ML/MIN/1.73 >60 CALC BUN/CREAT (test code = 2235) 12 RATIO 6-28 SODIUM (test code = 2231) 142 MEQ/L 133-146 POTASSIUM (test code = [...] H UNLESS OTHERWISE INDICATED, [facility] TEST[facility] [address] [place] [address] PHYSICAL THERAPY TECHNICIAN: CHRISTINA MORALES M.D. CLIA NUMBER [id number] [facility] [place]. [id number] LIPID [id number] 00:00:00* Test Item Value Reference Range Interpretation Comme nts CHOLESTEROL (test code = 2210) 187 MG/DL TRIGLYCERIDES (test code = 2232) 197 MG/DL HDL CHOLESTEROL (test code = 2220) 41 MG/DL CALC LDL CHOL (test code = 2237) 114 MG/DL RISK RATIO LDL/HDL (test cod e = 2238) 2.78 RATIO Cosmo NievesCOMPREHENSIVE METABOLIC [id number] 00:00:00* Test Item Value Reference Range Interpretation Comme nts GLUCOSE (test code = 2217) 184 MG/DL BUN (test code = 2208) 10 MG/DL CREATININE (test code = 2214) 0.85 MG/DL eGFR (2020 CKD-EPI) (test co de = 90898) 89 ML/MIN/1.73 CALC BUN/CREAT (test code = [...] code = 2219) 46 U/L Cosmo NievesHEMOGLOBIN [id number] 00:00:00* Test Item Value Reference Range Interpretation Comme [facility] HEMOGLOBIN A1c (test code = 42988) 6.5 % Cosmo NievesLIPID [id number] 00:00:00* Test Item Value Reference Range Interpretation Comme nts CHOLESTEROL (test code = 2210) 187 MG/DL TRIGLYCERIDES (test code = 2232) 197 MG/DL HDL CHOLESTEROL (test code = 2220) 41 MG/DL CALC LDL CHOL (test code = 2237) 114 MG/DL RISK RATIO LDL/HDL (test cod e = 2238) 2.78 RATIO Cosmo NievesCOMPREHENSIVE METABOLIC [id number] 00:00:00* Test Item Value Reference Range Interpretation Comme nts GLUCOSE (test code = 2217) 184 MG/DL BUN (test code = 2208) 10 MG/DL CREATININE (test code = 2214) 0.85 MG/DL eGFR (2020 CKD-EPI) (test co de = 46780) 89 ML/MIN/1.73 CALC BUN/CREAT (test code = [...] code = 2219) 46 U/L Cosmo NievesHEMOGLOBIN [id number] 00:00:00* Test Item Value Reference Range Interpretation Comme nts HEMOGLOBIN A1c (test code = 94534) 6.5 % Cosmo NievesLIPID [id number] 00:00:00* Test Item Value Reference Range Interpretation Comme nts CHOLESTEROL (test code = 2210) 187 MG/DL TRIGLYCERIDES (test code = 2232) 197 MG/DL HDL CHOLESTEROL (test code = 2220) 41 MG/DL CALC LDL CHOL (test code = 2237) 114 MG/DL RISK RATIO LDL/HDL (test cod e = 2238) 2.78 RATIO Cosmo NievesCOMPREHENSIVE METABOLIC [id number] 00:00:00* Test Item Value Reference Range Interpretation Comme nts GLUCOSE (test code = 2217) 184 MG/DL BUN (test code = 2208) 10 MG/DL CREATININE (test code = 2214) 0.85 MG/DL eGFR (2020 CKD-EPI) (test co de = 91264) 89 ML/MIN/1.73 CALC BUN/CREAT (test code = [...] = 2219) 46 U/L Cosmo Martin AustinHEMOGLOBIN [id number] 00:00:00* Test Item Value Reference Range Interpretation Comme nts HEMOGLOBIN A1c (test code = 85904) 6.5 % Cosmo Martin AustinLIPID [id number] 00:00:00* Test Item Value Reference Range Interpretation Comme nts CHOLESTEROL (test code = 2210) 187 MG/DL TRIGLYCERIDES (test code = 2232) 197 MG/DL HDL CHOLESTEROL (test code = 2220) 41 MG/DL CALC LDL CHOL (test code = 2237) 114 MG/DL RISK RATIO LDL/HDL (test cod e = 2238) 2.78 RATIO Cosmo NievesCOMPREHENSIVE METABOLIC [id number] 00:00:00* Test Item Value Reference Range Interpretation Comme nts GLUCOSE (test code = 2217) 184 MG/DL BUN (test code = 2208) 10 MG/DL CREATININE (test code = 2214) 0.85 MG/DL eGFR (2020 CKD-EPI) (test co de = 86825) 89 ML/MIN/1.73 CALC BUN/CREAT (test code = [...] = 2219) 46 U/L Cosmo Martin AustinHEMOGLOBIN [id number] 00:00:00* Test Item Value Reference Range Interpretation Comme nts HEMOGLOBIN A1c (test code = 94419) 6.5 % Cosmo Martin AustinHEMOGLOBIN [id number] 00:00:00* Test Item Value Reference Range Interpretation Comme nts HEMOGLOBIN A1c (test code = 47282) 6.5 % LIPID [id number] 00:00:00* Test Item Value Reference Range Interpretation Comme nts CHOLESTEROL (test code = 2210) 187 MG/DL TRIGLYCERIDES (test code = 2232) 197 MG/DL HDL CHOLESTEROL (test code = 2220) 41 MG/DL CALC LDL CHOL (test code = 2237) 114 MG/DL RISK RATIO LDL/HDL (test cod e = 2238) 2.78 RATIO COMPREHENSIVE METABOLIC [id number] 00:00:00* Test Item Value Reference Range Interpretation Comme nts GLUCOSE (test code = 2217) 184 MG/DL BUN (test code = 2208) 10 MG/DL CREATININE (test code = 2214) 0.85 MG/DL eGFR (2020 CKD-EPI) (test co de = 92876) 89 ML/MIN/1.73 CALC BUN/CREAT (test code = [...] (test code = 2219) 46 U/L HEMOGLOBIN [id number] 04:36:49* Test Item Value Reference Range Interpretation Comme nts HEMOGLOBIN A1c (test code = 09920) 6.5 % 4.2-5.6 H [employer] GUIDELINES FOR HGB A1C: [...] CONSULTATION. UNLESS OTHERWISE INDICATED, ALL TESTING PERFORMED [facility] [place] [employer] [address] [place] [address] PHYSICAL THERAPY TECHNICIAN: CHRISTINA MORALES M.D. [place] NUMBER [id number] [facility] [place]. [id number] COMPREHENSIVE METABOLIC [id number] 03:37:53* Test Item Value Reference Range Interpretation Comme nts GLUCOSE (test code = 2217) 113 MG/DL 70-99 H BUN (test code = 2207) 11 MG/DL 6-20 CREATININE (test code = 2214) 0.76 MG/DL 0.60-1.30 eGFR (2020 CKD-EPI) (test code = 21804) 102 ML/MIN/1.73 >60 CALC BUN/CREAT (test code [...] normal/abnormal. ALKALINE PHOSPHATASE (test code = 2204) 72 U/L 40-112 AST (test code = 2218) 24 U/L 9-40 ALT (test code = 2219) 27 U/L 5-40 LIPID [id number] 03:37:53* Test Item Value Reference Range Interpretation [...] SPECIMENS. FOR MOREINFORMATION, SEE CLIENT ANNOUNCEMENT AT [email or web address] RISK RATIO LDL/HDL (test code = 2238) 3.02 RATIO <3.22 CBC W/AUTO DIFF WITH [id number] 03:37:16* Test Item Value Reference Range Interpretation [...] = 1065) 0.0 /100 WBC'S See_Comment [Automated [employer] ge] The system which generated this result [...] 0.00-0.10 ABS NUCLEATED RBCS (test code = 91411) 0.00 K/UL 0.00-0.11 COMPREHENSIVE METABOLIC [id number] 00:00:00* Test Item Value Reference Range Interpretation Comme nts GLUCOSE (test code = 2217) 113 MG/DL BUN (test code = 2208) 11 MG/DL CREATININE (test code = 2214) 0.76 MG/DL eGFR (2020 CKD-EPI) (test code = 53311) 102 ML/MIN/1.73 CALC BUN/CREAT (test code = [...] = 2219) 27 U/L Cosmo F AustinLIPID [id number] 00:00:00* Test Item Value Reference Range Interpretation Comme nts CHOLESTEROL (test code = 2210) 217 MG/DL TRIGLYCERIDES (test code = 2232) 226 MG/DL HDL CHOLESTEROL (test code = 2220) 45 MG/DL CALC LDL CHOL (test code = 2237) 136 MG/DL RISK RATIO LDL/HDL (test cod e = 2238) 3.02 RATIO Cosmo NievesHEMOGLOBIN [id number] 00:00:00* Test Item Value Reference Range Interpretation Comme nts HEMOGLOBIN A1c (test code = 01460) 6.5 % Cosmo NievesCBC W/AUTO [id number] 00:00:00* Test Item Value Reference Range Interpretation [...] ABS NUCLEATED RBCS (test cod e = 38921) 0.00 K/UL Cosmo NievesCOMPREHENSIVE METABOLIC [id number] 00:00:00* Test Item Value Reference Range Interpretation Comme nts GLUCOSE (test code = 2217) 113 MG/DL BUN (test code = 2208) 11 MG/DL CREATININE (test code = 2214) 0.76 MG/DL eGFR (2020 CKD-EPI) (test code = 98918) 102 ML/MIN/1.73 CALC BUN/CREAT (test code = [...] code = 2219) 27 U/L Cosmo NievesLIPID [id number] 00:00:00* Test Item Value Reference Range Interpretation Comme nts CHOLESTEROL (test code = 2210) 217 MG/DL TRIGLYCERIDES (test code = 2232) 226 MG/DL HDL CHOLESTEROL (test code = 2220) 45 MG/DL CALC LDL CHOL (test code = 2237) 136 MG/DL RISK RATIO LDL/HDL (test cod e = 2238) 3.02 RATIO Cosmo NievesHEMOGLOBIN [id number] 00:00:00* Test Item Value Reference Range Interpretation Comme nts HEMOGLOBIN A1c (test code = 34196) 6.5 % Cosmo NievesCBC W/AUTO [id number] 00:00:00* Test Item Value Reference Range Interpretation [...] ABS NUCLEATED RBCS (test cod e = 71153) 0.00 K/UL Cosmo Veronica EzequielCOMPREHENSIVE METABOLIC [id number] 00:00:00* Test Item Value Reference Range Interpretation Comme nts GLUCOSE (test code = 2217) 113 MG/DL BUN (test code = 2208) 11 MG/DL CREATININE (test code = 2214) 0.76 MG/DL eGFR (2020 CKD-EPI) (test code = 38665) 102 ML/MIN/1.73 CALC BUN/CREAT (test code = [...] code = 2219) 27 U/L Cosmo NievesLIPID [id number] 00:00:00* Test Item Value Reference Range Interpretation Comme nts CHOLESTEROL (test code = 2210) 217 MG/DL TRIGLYCERIDES (test code = 2232) 226 MG/DL HDL CHOLESTEROL (test code = 2220) 45 MG/DL CALC LDL CHOL (test code = 2237) 136 MG/DL RISK RATIO LDL/HDL (test cod e = 2238) 3.02 RATIO Cosmo NievesHEMOGLOBIN [id number] 00:00:00* Test Item Value Reference Range Interpretation Comme nts HEMOGLOBIN A1c (test code = 96811) 6.5 % Cosmo NievesCBC W/AUTO [id number] 00:00:00* Test Item Value Reference Range Interpretation [...] ABS NUCLEATED RBCS (test cod e = 12271) 0.00 K/UL Cosmo NievesCOMPREHENSIVE METABOLIC [id number] 00:00:00* Test Item Value Reference Range Interpretation Comme nts GLUCOSE (test code = 2217) 113 MG/DL BUN (test code = 2208) 11 MG/DL CREATININE (test code = 2214) 0.76 MG/DL eGFR (2020 CKD-EPI) (test code = 38846) 102 ML/MIN/1.73 CALC BUN/CREAT (test code = [...] (test code = 2219) 27 U/L Cosmo NievesCBC W/AUTO [id number] 00:00:00* Test Item Value Reference Range Interpretation [...] ABS NUCLEATED RBCS (test cod e = 07113) 0.00 K/UL LIPID [id number] 00:00:00* Test Item Value Reference Range Interpretation Comme nts CHOLESTEROL (test code = 2210) 217 MG/DL TRIGLYCERIDES (test code = 2232) 226 MG/DL HDL CHOLESTEROL (test code = 2220) 45 MG/DL CALC LDL CHOL (test code = 2237) 136 MG/DL RISK RATIO LDL/HDL (test cod e = 2238) 3.02 RATIO Cosmo NievesHEMOGLOBIN [id number] 00:00:00* Test Item Value Reference Range Interpretation Comme nts HEMOGLOBIN A1c (test code = 01760) 6.5 % Cosmo NievesCOMPREHENSIVE METABOLIC [id number] 00:00:00* Test Item Value Reference Range Interpretation Comme nts GLUCOSE (test code = 2217) 113 MG/DL BUN (test code = 2208) 11 MG/DL CREATININE (test code = 2214) 0.76 MG/DL eGFR (2020 CKD-EPI) (test code = 94240) 102 ML/MIN/1.73 CALC BUN/CREAT (test code = [...] ALT (test code = 2219) 27 U/L CBC W/AUTO [id number] 00:00:00* Test Item Value Reference Range Interpretation [...] ABS NUCLEATED RBCS (test cod e = 24483) 0.00 K/UL Cosmo F AustinLIPID [id number] 00:00:00* Test Item Value Reference Range Interpretation Comme nts CHOLESTEROL (test code = 2210) 217 MG/DL TRIGLYCERIDES (test code = 2232) 226 MG/DL HDL CHOLESTEROL (test code = 2220) 45 MG/DL CALC LDL CHOL (test code = 2237) 136 MG/DL RISK RATIO LDL/HDL (test cod e = 2238) 3.02 RATIO HEMOGLOBIN [id number] 00:00:00* Test Item Value Reference Range Interpretation Comme nts HEMOGLOBIN A1c (test code = 96201) 6.5 % CBC W/AUTO [id number] 00:00:00* Test Item Value Reference Range Interpretation [...] ABS NUCLEATED RBCS (test cod e = 91381) 0.00 K/UL COMPREHENSIVE METABOLIC [id number] 00:00:00* Test Item Value Reference Range Interpretation Comme nts GLUCOSE (test code = 2217) 113 MG/DL BUN (test code = 2208) 11 MG/DL CREATININE (test code = 2214) 0.76 MG/DL eGFR (2020 CKD-EPI) (test code = 11459) 102 ML/MIN/1.73 CALC BUN/CREAT (test code = [...] (test code = 2219) 27 U/L LIPID [id number] 00:00:00* Test Item Value Reference Range Interpretation Comme nts CHOLESTEROL (test code = 2210) 217 MG/DL TRIGLYCERIDES (test code = 2232) 226 MG/DL HDL CHOLESTEROL (test code = 2220) 45 MG/DL CALC LDL CHOL (test code = 2237) 136 MG/DL RISK RATIO LDL/HDL (test cod e = 2238) 3.02 RATIO HEMOGLOBIN [id number] 00:00:00* Test Item Value Reference Range Interpretation Comme nts HEMOGLOBIN A1c (test code = 32233) 6.5 % CULTURE, [id number] 08:54:24SPECIMEN NUMBER: [id number] CULTURE, URINE SPECIMEN NUMBER: [id number] SPECIMEN COMMENT: URINE SOURCE: URINE REPORT STATUS: FINAL FINAL REPORT: 08/23/2021 10-50,000 CFU/ML UROGENITAL SAL PRESENT NO CO MMON PATHOGENS UNLESS OTHERWISE INDICATED, ALL TESTING PERFORMED [facility] [address] [place] [address], [place] [address] PHYSICAL THERAPY TECHNICIAN: CHRISTINA MORALES M.D. CLIA NUMBER [id number] [place]. [id number] CULTURE, [id number] 00:00:00* Test Item Value Reference Range Interpretation Comme nts CULTURE, URINE (test code = 39585) SPECIMEN NUMBER: [id number] Cosmo Veronica Alden, [id number] 00:00:00* Test Item Value Reference Range Interpretation Comme nts CULTURE, URINE (test code = 25524) SPECIMEN NUMBER: [id number] Cosmo Ruano, [id number] 00:00:00* Test Item Value Reference Range Interpretation Comme nts CULTURE, URINE (test code = 72672) SPECIMEN NUMBER: [id number] Cosmo Ruano, [id number] 00:00:00* Test Item Value Reference Range Interpretation Comme nts CULTURE, URINE (test code = 41716) SPECIMEN NUMBER: [id number] CULTURE, [id number] 00:00:00* Test Item Value Reference Range Interpretation Comme nts CULTURE, URINE (test code = 26563) SPECIMEN NUMBER: [id number] Cosmo Ruano, [id number] 00:00:00* Test Item Value Reference Range Interpretation Comme nts CULTURE, URINE (test code = 87546) SPECIMEN NUMBER: [id number] LIPID [id number] 00:00:00* Test Item Value Reference Range Interpretation Comme nts CHOLESTEROL (test code = 2210) 191 MG/DL TRIGLYCERIDES (test code = 2232) 193 MG/DL HDL CHOLESTEROL (test code = 2220) 43 MG/DL CALC LDL CHOL (test code = 2237) 117 MG/DL RISK RATIO LDL/HDL (test cod e = 2238) 2.72 RATIO Cosmo [id number] 00:00:00* Test Item Value Reference Range Interpretation Comme nts TSH, THIRD GENERATION (test code = 2821) 1.190 UIU/ML Cosmo NievesHEMOGLOBIN [id number] 00:00:00* Test Item Value Reference Range Interpretation Comme nts HEMOGLOBIN A1c (test code = 53459) 6.8 % Cosmo NievesLIPID [id number] 00:00:00* Test Item Value Reference Range Interpretation Comme nts CHOLESTEROL (test code = 2210) 191 MG/DL TRIGLYCERIDES (test code = 2232) 193 MG/DL HDL CHOLESTEROL (test code = 2220) 43 MG/DL CALC LDL CHOL (test code = 2237) 117 MG/DL RISK RATIO LDL/HDL (test cod e = 2238) 2.72 RATIO Cosmo [id number] 00:00:00* Test Item Value Reference Range Interpretation Comme nts TSH, THIRD GENERATION (test code = 2821) 1.190 UIU/ML Cosmo Martin AustinHEMOGLOBIN [id number] 00:00:00* Test Item Value Reference Range Interpretation Comme nts HEMOGLOBIN A1c (test code = 26980) 6.8 % Cosmo Martin AustinLIPID [id number] 00:00:00* Test Item Value Reference Range Interpretation Comme nts CHOLESTEROL (test code = 2210) 191 MG/DL TRIGLYCERIDES (test code = 2232) 193 MG/DL HDL CHOLESTEROL (test code = 2220) 43 MG/DL CALC LDL CHOL (test code = 2237) 117 MG/DL RISK RATIO LDL/HDL (test cod e = 2238) 2.72 RATIO Cosmo Martin [id number] 00:00:00* Test Item Value Reference Range Interpretation Comme nts TSH, THIRD GENERATION (test code = 2821) 1.190 UIU/ML Cosmo Martin AustinHEMOGLOBIN [id number] 00:00:00* Test Item Value Reference Range Interpretation Comme nts HEMOGLOBIN A1c (test code = 14447) 6.8 % Cosmo Martin AustinLIPID [id number] 00:00:00* Test Item Value Reference Range Interpretation Comme nts CHOLESTEROL (test code = 2210) 191 MG/DL TRIGLYCERIDES (test code = 2232) 193 MG/DL HDL CHOLESTEROL (test code = 2220) 43 MG/DL CALC LDL CHOL (test code = 2237) 117 MG/DL RISK RATIO LDL/HDL (test cod e = 2238) 2.72 RATIO Cosmo Martin [id number] 00:00:00* Test Item Value Reference Range Interpretation Comme nts TSH, THIRD GENERATION (test code = 2821) 1.190 UIU/ML Cosmo Martin AustinHEMOGLOBIN [id number] 00:00:00* Test Item Value Reference Range Interpretation Comme nts HEMOGLOBIN A1c (test code = 01814) 6.8 % HEMOGLOBIN [id number] 00:00:00* Test Item Value Reference Range Interpretation Comme nts HEMOGLOBIN A1c (test code = 99829) 6.8 % Cosmo Martin AustinLIPID [id number] 00:00:00* Test Item Value Reference Range Interpretation Comme nts CHOLESTEROL (test code = 2210) 191 MG/DL TRIGLYCERIDES (test code = 2232) 193 MG/DL HDL CHOLESTEROL (test code = 2220) 43 MG/DL CALC LDL CHOL (test code = 2237) 117 MG/DL RISK RATIO LDL/HDL (test cod e = 2238) 2.72 RATIO [id number] 00:00:00* Test Item Value Reference Range Interpretation Comme nts TSH, THIRD GENERATION (test code = 2821) 1.190 UIU/ML HEMOGLOBIN [id number] 00:00:00* Test Item Value Reference Range Interpretation Comme nts HEMOGLOBIN A1c (test code = 07936) 6.8 % LIPID [id number] 00:00:00* Test Item Value Reference Range Interpretation Comme nts CHOLESTEROL (test code = 2210) 191 MG/DL TRIGLYCERIDES (test code = 2232) 193 MG/DL HDL CHOLESTEROL (test code = 2220) 43 MG/DL CALC LDL CHOL (test code = 2237) 117 MG/DL RISK RATIO LDL/HDL (test cod e = 2238) 2.72 RATIO [id number] 00:00:00* Test Item Value Reference Range Interpretation Comme nts TSH, THIRD GENERATION (test code = 2821) 1.190 UIU/ML COMP. METABOLIC PANEL ([id number] 16:24:00* Test Item Value Reference Range Interpretation Comme nts NA (test code = 7607698788) 137 mmol/L 135-145 K (test code = 0167484037) 4.1 mmol/L 3.5-5.0 CL (test code = 8065202075) 101 mmol/L 98-108 CO2 TOTAL (test code = 2500369943) 27 mmol/L 23-31 AGAP (test code = 1588359597) 2-16 BUN (test code = 0610034322) 10 mg/dL 7-23 GLUCOSE (test code = 6515618006) 195 mg/dL 70-110 H CREATININE (test code = 8099707240) 0.60 mg/dL 0.50-1.04 TOTAL BILI (test code = 4742564524) 0.6 mg/dL 0.1-1.1 CALCIUM (test code = 9786374590) 9.8 mg/dL 8.6-10.6 T PROTEIN (test code = 0801680697) 7.3 g/dL 6.3-8.2 ALBUMIN (test code = 9089422546) 4.4 g/dL 3.5-5.0 ALK PHOS (test code = 6462134285) 80 U/L 34-122 ALTv (test code = 1742-6) 35 U/L 5-35 AST(SGOT) (test code = 9150989165) 40 U/L 13-40 eGFR (test code = 0911239968) mL/min/1.73m2 EVGENY (test code = EVGENY) Association [...] imaging tests). Lab Interpretation (test code = 49216-8) Abnormal [id number] 16:23:39* Test Item Value Reference Range Interpretation Comme nts LIPASE (test code = 2895809860) 112 U/L 0-220 Lab Interpretation (test cod e = 62507-4) Normal [facility] WITH [id number] 16:18:37* Test Item Value Reference Range Interpretation [...] g/dL 31.6-35.1 L RDW-SD (test code = 45516-8) 48.1 fL 39.0-49.9 RDW-CV (test code = 788-0) 17.8 % 12.0-15.5 H PLT (test code = 777-3) See_Comment H [Automated message] The system which generated this result transmitted reference range: 166 - 358 10*3/?L. The reference range was not used to interpret this result as normal/abnormal. MPV (test code = 03473-9) 12.1 fL 9.5-12.9 NRBC/100 WBC (test code = 9590463752) See_Comment [Automated message] The system which generated this result transmitted reference range: 0.0 - 10.0 /100 WBCs. The reference range was not used to interpret this result as normal/abnormal. NRBC x10^3 (test code = 1610231825) <0.01 See_Comment [Automated message] The system which generated this result transmitted reference range: 10*3/?L. The reference range was not used to interpret this result as normal/abnormal. GRAN MAT (NEUT) % (test code = 770-8) 80.5 % IMM GRAN % (test code = 8259055215) 1.00 % LYMPH % (test code = 736-9) 13.0 % MONO % (test code = 5905-5) 3.8 % EOS % (test code = 713-8) 1.3 % BASO % (test code = 706-2) 0.4 % GRAN MAT x10^3(ANC) (test code = 9206647973) 12.47 10*3/uL 1.88-7.09 H IMM GRAN x10^3 (test code = 9045124350) 0.16 10*3/uL 0.00-0.06 H LYMPH x10^3 (test code = 731-0) 2.02 10*3/uL 1.32-3.29 MONO x10^3 (test code = 742-7) 0.59 10*3/uL 0.33-0.92 EOS x10^3 (test code = 711-2) 0.20 10*3/uL 0.03-0.39 BASO x10^3 (test code = 704-7) 0.06 10*3/uL 0.01-0.07 Lab Interpretation (test code = 05459-0) Abnormal [facility] [id number] 15:59:00* Test Item Value Reference Range Interpretation Comme nts POCT PREG (test code = 1605) Negative On board controls acceptable with C Line (test code = 3574) Present POCT PREG LOT # (test code = 3575) HCG [id number] POCT PREG TEST DATE ( test code = 3576) 08/15/2022 Lab Interpretation (test cod e = 94699-8) Normal [facility] [id number] 00:00:00* Test Item Value Reference Range Interpretation Comme nts CHOLESTEROL (test code = 2210) 208 MG/DL TRIGLYCERIDES (test code = 2232) 140 MG/DL HDL CHOLESTEROL (test code = 2220) 48 MG/DL CALC LDL CHOL (test code = 2237) 134 MG/DL RISK RATIO LDL/HDL (test cod e = 2238) 2.79 RATIO Cosmo F AustinCOMPREHENSIVE METABOLIC [id number] 00:00:00* Test Item Value Reference Range Interpretation Comme nts GLUCOSE (test code = 2217) 143 MG/DL BUN (test code = 2208) 10 MG/DL CREATININE (test code = 2214) 0.60 MG/DL eGFR AMER. (test cod e = 41684) 133 ML/MIN/1.73 eGFR NON- AMER. (test code = 29387) 115 ML/MIN/1.73 CALC BUN/CREAT (test code = [...] (test code = 2219) 34 U/L Cosmo [id number] 00:00:00* Test Item Value Reference Range Interpretation Comme nts TSH, THIRD GENERATION (test code = 2821) 1.940 UIU/ML Cosmo NievesMICROALBUMIN/CREATININE, RANDOM AND [id number] 00:00:00* Test Item Value Reference Range Interpretation Comme nts CREATININE, URINE, CONC. (te st code = 2072) 157.3 MG/DL ALBUMIN, URINE, RANDOM (test code = 98013) 0.6 MG/DL CALC ALBUMIN/CREAT, RND (naz t code = 45233) 4 MG/G Cosmo NievesCBC W/AUTO [id number] 00:00:00* Test Item Value Reference Range Interpretation [...] ABS NUCLEATED RBCS (test cod e = 12143) 0.00 K/UL Cosmo Martin EzequielHIGH SENSITIVITY [id number] 00:00:00* Test Item Value Reference Range Interpretation Comme nts HIGH SENSITIVITY CRP (test c ode = 86431) 41.5 MG/L Cosmo Martin EzequielCCP [id number] 00:00:00* Test Item Value Reference Range Interpretation Comme nts CCP IgG (test code = 28012) <0.5 U/ML Cosmo Martin EzequielANA (ANTI-NUCLEAR AB) WITH REFLEX [id number] 00:00:00* Test Item Value Reference Range Interpretation Comme nts ANTI-NUCLEAR ANTIBODIES (naz t code = 3506) NEGATIVE Cosmo F EzequielSEDIMENTATION [id number] 00:00:00* Test Item Value Reference Range Interpretation Comme nts SEDIMENTATION RATE (test cod e = 1017) 44 MM/HOUR Cosmo F EzequielHEMOGLOBIN [id number] 00:00:00* Test Item Value Reference Range Interpretation Comme nts HEMOGLOBIN A1c (test code = 80067) 7.9 % Cosmo NievesLIPID [id number] 00:00:00* Test Item Value Reference Range Interpretation Comme nts CHOLESTEROL (test code = 2210) 208 MG/DL TRIGLYCERIDES (test code = 2232) 140 MG/DL HDL CHOLESTEROL (test code = 2220) 48 MG/DL CALC LDL CHOL (test code = 2237) 134 MG/DL RISK RATIO LDL/HDL (test cod e = 2238) 2.79 RATIO Cosmo NievesCOMPREHENSIVE METABOLIC [id number] 00:00:00* Test Item Value Reference Range Interpretation Comme nts GLUCOSE (test code = 2217) 143 MG/DL BUN (test code = 2208) 10 MG/DL CREATININE (test code = 2214) 0.60 MG/DL eGFR AMER. (test cod e = 13026) 133 ML/MIN/1.73 eGFR NON- AMER. (test code = 99746) 115 ML/MIN/1.73 CALC BUN/CREAT (test code = [...] (test code = 2219) 34 U/L Cosmo [id number] 00:00:00* Test Item Value Reference Range Interpretation Comme nts TSH, THIRD GENERATION (test code = 2821) 1.940 UIU/ML Cosmo NievesMICROALBUMIN/CREATININE, RANDOM AND [id number] 00:00:00* Test Item Value Reference Range Interpretation Comme nts CREATININE, URINE, CONC. (te st code = 2072) 157.3 MG/DL ALBUMIN, URINE, RANDOM (test code = 82178) 0.6 MG/DL CALC ALBUMIN/CREAT, RND (naz t code = 12440) 4 MG/G Cosmo NievesCBC W/AUTO [id number] 00:00:00* Test Item Value Reference Range Interpretation [...] ABS NUCLEATED RBCS (test cod e = 76708) 0.00 K/UL Cosmo NievesHIGH SENSITIVITY [id number] 00:00:00* Test Item Value Reference Range Interpretation Comme parisa HIGH SENSITIVITY CRP (test c ode = 87442) 41.5 MG/L Cosmo NievesCCP [id number] 00:00:00* Test Item Value Reference Range Interpretation Comme nts CCP IgG (test code = 06567) <0.5 U/ML Cosmo Dozier (ANTI-NUCLEAR AB) WITH REFLEX [id number] 00:00:00* Test Item Value Reference Range Interpretation Comme parisa ANTI-NUCLEAR ANTIBODIES (naz t code = 3506) NEGATIVE Cosmo NievesSEDIMENTATION [id number] 00:00:00* Test Item Value Reference Range Interpretation Comme parisa SEDIMENTATION RATE (test cod e = 1017) 44 MM/HOUR Cosmo NievesHEMOGLOBIN [id number] 00:00:00* Test Item Value Reference Range Interpretation Comme parisa HEMOGLOBIN A1c (test code = 17030) 7.9 % Cosmo NievesLIPID [id number] 00:00:00* Test Item Value Reference Range Interpretation Comme nts CHOLESTEROL (test code = 2210) 208 MG/DL TRIGLYCERIDES (test code = 2232) 140 MG/DL HDL CHOLESTEROL (test code = 2220) 48 MG/DL CALC LDL CHOL (test code = 2237) 134 MG/DL RISK RATIO LDL/HDL (test cod e = 2238) 2.79 RATIO Cosmo NievesCOMPREHENSIVE METABOLIC [id number] 00:00:00* Test Item Value Reference Range Interpretation Comme nts GLUCOSE (test code = 2217) 143 MG/DL BUN (test code = 2208) 10 MG/DL CREATININE (test code = 2214) 0.60 MG/DL eGFR AMER. (test cod e = 27967) 133 ML/MIN/1.73 eGFR NON- AMER. (test code = 27355) 115 ML/MIN/1.73 CALC BUN/CREAT (test code = [...] (test code = 2219) 34 U/L Cosmo [id number] 00:00:00* Test Item Value Reference Range Interpretation Comme nts TSH, THIRD GENERATION (test code = 2821) 1.940 UIU/ML Cosmo NievesMICROALBUMIN/CREATININE, RANDOM AND [id number] 00:00:00* Test Item Value Reference Range Interpretation Comme nts CREATININE, URINE, CONC. (te st code = 2072) 157.3 MG/DL ALBUMIN, URINE, RANDOM (test code = 85290) 0.6 MG/DL CALC ALBUMIN/CREAT, RND (naz t code = 58697) 4 MG/G Cosmo NievesCBC W/AUTO [id number] 00:00:00* Test Item Value Reference Range Interpretation [...] ABS NUCLEATED RBCS (test cod e = 49268) 0.00 K/UL Cosmo NievesHIGH SENSITIVITY [id number] 00:00:00* Test Item Value Reference Range Interpretation Comme parisa HIGH SENSITIVITY CRP (test c ode = 12174) 41.5 MG/L Cosmo NievesCCP [id number] 00:00:00* Test Item Value Reference Range Interpretation Comme parisa CCP IgG (test code = 04955) <0.5 U/ML Cosmo NievesANA (ANTI-NUCLEAR AB) WITH REFLEX [id number] 00:00:00* Test Item Value Reference Range Interpretation Comme parisa ANTI-NUCLEAR ANTIBODIES (naz t code = 3506) NEGATIVE Cosmo NievesSEDIMENTATION [id number] 00:00:00* Test Item Value Reference Range Interpretation Comme nts SEDIMENTATION RATE (test cod e = 1017) 44 MM/HOUR Cosmo NievesHEMOGLOBIN [id number] 00:00:00* Test Item Value Reference Range Interpretation Comme parisa HEMOGLOBIN A1c (test code = 12109) 7.9 % Cosmo NievesLIPID [id number] 00:00:00* Test Item Value Reference Range Interpretation Comme nts CHOLESTEROL (test code = 2210) 208 MG/DL TRIGLYCERIDES (test code = 2232) 140 MG/DL HDL CHOLESTEROL (test code = 2220) 48 MG/DL CALC LDL CHOL (test code = 2237) 134 MG/DL RISK RATIO LDL/HDL (test cod e = 2238) 2.79 RATIO Cosmo NievesCOMPREHENSIVE METABOLIC [id number] 00:00:00* Test Item Value Reference Range Interpretation Comme nts GLUCOSE (test code = 2217) 143 MG/DL BUN (test code = 2208) 10 MG/DL CREATININE (test code = 2214) 0.60 MG/DL eGFR AMER. (test cod e = 52409) 133 ML/MIN/1.73 eGFR NON- AMER. (test code = 37838) 115 ML/MIN/1.73 CALC BUN/CREAT (test code = [...] (test code = 2219) 34 U/L Cosmo NievesHEMOGLOBIN [id number] 00:00:00* Test Item Value Reference Range Interpretation Comme [facility] HEMOGLOBIN A1c (test code = 73927) 7.9 % [id number] 00:00:00* Test Item Value Reference Range Interpretation Comme [facility] TSH, THIRD GENERATION (test code = 2821) 1.940 UIU/ML Cosmo NievesMICROALBUMIN/CREATININE, RANDOM AND [id number] 00:00:00* Test Item Value Reference Range Interpretation Comme [facility] CREATININE, URINE, CONC. (te st code = 2072) 157.3 MG/DL ALBUMIN, URINE, RANDOM (test code = 09137) 0.6 MG/DL CALC ALBUMIN/CREAT, RND (naz t code = 09321) 4 MG/G Cosmo NievesCBC W/AUTO [id number] 00:00:00* Test Item Value Reference Range Interpretation Comme [facility] WBC (test code = 1001) 12.2 K/UL [...] ABS NUCLEATED RBCS (test cod e = 01795) 0.00 K/UL Cosmo NievesHIGH SENSITIVITY [id number] 00:00:00* Test Item Value Reference Range Interpretation Comme parisa HIGH SENSITIVITY CRP (test c ode = 17081) 41.5 MG/L Cosmo NievesCCP [id number] 00:00:00* Test Item Value Reference Range Interpretation Comme nts CCP IgG (test code = 01379) <0.5 U/ML Cosmo NievesGORDO (ANTI-NUCLEAR AB) WITH REFLEX [id number] 00:00:00* Test Item Value Reference Range Interpretation Comme parisa ANTI-NUCLEAR ANTIBODIES (naz t code = 3506) NEGATIVE Cosmo NievesSEDIMENTATION [id number] 00:00:00* Test Item Value Reference Range Interpretation Comme nts SEDIMENTATION RATE (test cod e = 1017) 44 MM/HOUR Cosmo NievesLIPID [id number] 00:00:00* Test Item Value Reference Range Interpretation Comme nts CHOLESTEROL (test code = 2210) 208 MG/DL TRIGLYCERIDES (test code = 2232) 140 MG/DL HDL CHOLESTEROL (test code = 2220) 48 MG/DL CALC LDL CHOL (test code = 2237) 134 MG/DL RISK RATIO LDL/HDL (test cod e = 2238) 2.79 RATIO HEMOGLOBIN [id number] 00:00:00* Test Item Value Reference Range Interpretation Comme nts HEMOGLOBIN A1c (test code = 87852) 7.9 % Cosmo NievesCOMPREHENSIVE METABOLIC [id number] 00:00:00* Test Item Value Reference Range Interpretation Comme nts GLUCOSE (test code = 2217) 143 MG/DL BUN (test code = 2208) 10 MG/DL CREATININE (test code = 2214) 0.60 MG/DL eGFR AMER. (test cod e = 48948) 133 ML/MIN/1.73 eGFR NON- AMER. (test code = 05492) 115 ML/MIN/1.73 CALC BUN/CREAT (test code = [...] ALT (test code = 2219) 34 U/L [id number] 00:00:00* Test Item Value Reference Range Interpretation Comme nts TSH, THIRD GENERATION (test code = 2821) 1.940 UIU/ML MICROALBUMIN/CREATININE, RANDOM AND [id number] 00:00:00* Test Item Value Reference Range Interpretation Comme nts CREATININE, URINE, CONC. (te st code = 2072) 157.3 MG/DL ALBUMIN, URINE, RANDOM (test code = 31054) 0.6 MG/DL CALC ALBUMIN/CREAT, RND (naz t code = 65627) 4 MG/G CBC W/AUTO [id number] 00:00:00* Test Item Value Reference Range Interpretation [...] ABS NUCLEATED RBCS (test cod e = 11008) 0.00 K/UL HIGH SENSITIVITY [id number] 00:00:00* Test Item Value Reference Range Interpretation Comme nts HIGH SENSITIVITY CRP (test c ode = 26527) 41.5 MG/L CCP [id number] 00:00:00* Test Item Value Reference Range Interpretation Comme nts CCP IgG (test code = 45163) <0.5 U/ML GORDO (ANTI-NUCLEAR AB) WITH REFLEX [id number] 00:00:00* Test Item Value Reference Range Interpretation Comme nts ANTI-NUCLEAR ANTIBODIES (naz t code = 3506) NEGATIVE SEDIMENTATION [id number] 00:00:00* Test Item Value Reference Range Interpretation Comme nts SEDIMENTATION RATE (test cod e = 1017) 44 MM/HOUR HEMOGLOBIN [id number] 00:00:00* Test Item Value Reference Range Interpretation Comme nts HEMOGLOBIN A1c (test code = 50277) 7.9 % LIPID [id number] 00:00:00* Test Item Value Reference Range Interpretation Comme nts CHOLESTEROL (test code = 2210) 208 MG/DL TRIGLYCERIDES (test code = 2232) 140 MG/DL HDL CHOLESTEROL (test code = 2220) 48 MG/DL CALC LDL CHOL (test code = 2237) 134 MG/DL RISK RATIO LDL/HDL (test cod e = 2238) 2.79 RATIO COMPREHENSIVE METABOLIC [id number] 00:00:00* Test Item Value Reference Range Interpretation Comme nts GLUCOSE (test code = 2217) 143 MG/DL BUN (test code = 2208) 10 MG/DL CREATININE (test code = 2214) 0.60 MG/DL eGFR AMER. (test cod e = 79412) 133 ML/MIN/1.73 eGFR NON- AMER. (test code = 94255) 115 ML/MIN/1.73 CALC BUN/CREAT (test code = [...] ALT (test code = 2219) 34 U/L [id number] 00:00:00* Test Item Value Reference Range Interpretation Comme nts TSH, THIRD GENERATION (test code = 2821) 1.940 UIU/ML MICROALBUMIN/CREATININE, RANDOM AND [id number] 00:00:00* Test Item Value Reference Range Interpretation Comme nts CREATININE, URINE, CONC. (te st code = 2072) 157.3 MG/DL ALBUMIN, URINE, RANDOM (test code = 72794) 0.6 MG/DL CALC ALBUMIN/CREAT, RND (naz t code = 97332) 4 MG/G CBC W/AUTO [id number] 00:00:00* Test Item Value Reference Range Interpretation [...] ABS NUCLEATED RBCS (test cod e = 09344) 0.00 K/UL HIGH SENSITIVITY [id number] 00:00:00* Test Item Value Reference Range Interpretation Comme nts HIGH SENSITIVITY CRP (test c ode = 79836) 41.5 MG/L CCP [id number] 00:00:00* Test Item Value Reference Range Interpretation Comme nts CCP IgG (test code = 93841) <0.5 U/ML GORDO (ANTI-NUCLEAR AB) WITH REFLEX [id number] 00:00:00* Test Item Value Reference Range Interpretation Comme nts ANTI-NUCLEAR ANTIBODIES (naz t code = 3506) NEGATIVE SEDIMENTATION [id number] 00:00:00* Test Item Value Reference Range Interpretation Comme nts SEDIMENTATION RATE (test cod e = 1017) 44 MM/HOUR US ABDOMEN [id number] 17:05:12HISTORY: Recurrent epigastric abdominal pain. TECHNIQUE: Upper [...] in these organs. Cortex of bothkidneys range enalkmj58 mm and 14 mm. No hydronephrosis, free fluid in theupper abdomen or aortic aneurysm detected. Visualized portions of thepancreas appear normal. Hepatic and portal venous system appear patent,with hepatopetal portal flow noted. Gallbladder has been removed. Common hepatic duct is 4.0 mm. CONCLUSIONS:1. Moderate hepatomegaly with moderate diffuse steatosis.2. S/P cholecystectomy. [facility], Radiant Results Inft User - 12/19/2020 12:06 [...] (test code = 998) (NOTE) Cosmo Martin AustinNOTE: [ADDED]2020-07-10 00:00:00* Test Item Value Reference Range Interpretation Comme nts NOTE: (test code = 998) (NOTE) Cosmo Martin AustinNOTE: [ADDED]2020-07-10 00:00:00* Test Item Value Reference Range Interpretation Comme nts NOTE: (test code = 998) (NOTE) Cosmo Martin AustinNOTE: [ADDED]2020-07-10 00:00:00* Test Item Value Reference Range Interpretation Comme nts NOTE: (test code = 998) (NOTE) Cosmo Martin AustinNOTE: [ADDED]2020-07-10 00:00:00* Test Item Value Reference Range Interpretation Comme nts NOTE: (test code = 998) (NOTE) NOTE: [ADDED]2020-07-10 00:00:00* Test Item Value Reference Range Interpretation Comme nts NOTE: (test code = 998) (NOTE) HEMOGLOBIN A1c [ADDED]2020-07-09 00:00:00* Test Item Value Reference Range Interpretation Comme nts HEMOGLOBIN A1c (test code = 11598) 8.1 % Cosmo aMrtin AustinHEMOGLOBIN A1c [ADDED]2020-07-09 00:00:00* Test Item Value Reference Range Interpretation Comme nts HEMOGLOBIN A1c (test code = 36261) 8.1 % Cosmo Martin AustinHEMOGLOBIN A1c [ADDED]2020-07-09 00:00:00* Test Item Value Reference Range Interpretation Comme nts HEMOGLOBIN A1c (test code = 18109) 8.1 % Cosmo Martin AustinHEMOGLOBIN A1c [ADDED]2020-07-09 00:00:00* Test Item Value Reference Range Interpretation Comme nts HEMOGLOBIN A1c (test code = 64947) 8.1 % HEMOGLOBIN A1c [ADDED]2020-07-09 00:00:00* Test Item Value Reference Range Interpretation Comme nts HEMOGLOBIN A1c (test code = 90546) 8.1 % Cosmo Martin AustinHEMOGLOBIN A1c [ADDED]2020-07-09 00:00:00* Test Item Value Reference Range Interpretation Comme nts HEMOGLOBIN A1c (test code = 51731) 8.1 % [id number] 00:00:00* Test Item Value Reference Range Interpretation Comme nts TSH, THIRD GENERATION (test code = 2821) 2.590 UIU/ML Cosmo [id number] 00:00:00* Test Item Value Reference Range Interpretation Comme nts TSH, THIRD GENERATION (test code = 2821) 2.590 UIU/ML Cosmo F [id number] 00:00:00* Test Item Value Reference Range Interpretation Comme nts TSH, THIRD GENERATION (test code = 2821) 2.590 UIU/ML Cosmo F [id number] 00:00:00* Test Item Value Reference Range Interpretation Comme nts TSH, THIRD GENERATION (test code = 2821) 2.590 UIU/ML Cosmo F [id number] 00:00:00* Test Item Value Reference Range Interpretation Comme nts TSH, THIRD GENERATION (test code = 2821) 2.590 UIU/ML [id number] 00:00:00* Test Item Value Reference Range Interpretation Comme nts TSH, THIRD GENERATION (test code = 2821) 2.590 UIU/ML LIPID [id number] 00:00:00* Test Item Value Reference Range Interpretation Comme nts CHOLESTEROL (test code = 2210) 161 MG/DL TRIGLYCERIDES (test code = 2232) 162 MG/DL HDL CHOLESTEROL (test code = 2220) 39 MG/DL CALC LDL CHOL (test code = 2237) 96 MG/DL RISK RATIO LDL/HDL (test cod e = 2238) 2.46 RATIO Cosmo NievesCOMPREHENSIVE METABOLIC [id number] 00:00:00* Test Item Value Reference Range Interpretation Comme nts GLUCOSE (test code = 2217) 173 MG/DL BUN (test code = 2208) 8 MG/DL CREATININE (test code = 2214) 0.55 MG/DL eGFR AMER. (test cod e = 07646) 138 ML/MIN/1.73 eGFR NON- AMER. (test code = 24966) 119 ML/MIN/1.73 CALC BUN/CREAT (test code = [...] = 2219) 32 U/L Cosmo NievesCBC W/AUTO [id number] 00:00:00* Test Item Value Reference Range Interpretation [...] code = 1015) 282 K/UL Cosmo NievesLIPID [id number] 00:00:00* Test Item Value Reference Range Interpretation Comme nts CHOLESTEROL (test code = 2210) 161 MG/DL TRIGLYCERIDES (test code = 2232) 162 MG/DL HDL CHOLESTEROL (test code = 2220) 39 MG/DL CALC LDL CHOL (test code = 2237) 96 MG/DL RISK RATIO LDL/HDL (test cod e = 2238) 2.46 RATIO Cosmo NievesCOMPREHENSIVE METABOLIC [id number] 00:00:00* Test Item Value Reference Range Interpretation Comme nts GLUCOSE (test code = 2217) 173 MG/DL BUN (test code = 2208) 8 MG/DL CREATININE (test code = 2214) 0.55 MG/DL eGFR AMER. (test cod e = 45319) 138 ML/MIN/1.73 eGFR NON- AMER. (test code = 44679) 119 ML/MIN/1.73 CALC BUN/CREAT (test code = [...] = 2219) 32 U/L Cosmo NievesCBC W/AUTO [id number] 00:00:00* Test Item Value Reference Range Interpretation [...] code = 1015) 282 K/UL Cosmo NievesLIPID [id number] 00:00:00* Test Item Value Reference Range Interpretation Comme nts CHOLESTEROL (test code = 2210) 161 MG/DL TRIGLYCERIDES (test code = 2232) 162 MG/DL HDL CHOLESTEROL (test code = 2220) 39 MG/DL CALC LDL CHOL (test code = 2237) 96 MG/DL RISK RATIO LDL/HDL (test cod e = 2238) 2.46 RATIO Cosmo NievesCOMPREHENSIVE METABOLIC [id number] 00:00:00* Test Item Value Reference Range Interpretation Comme nts GLUCOSE (test code = 2217) 173 MG/DL BUN (test code = 2208) 8 MG/DL CREATININE (test code = 2214) 0.55 MG/DL eGFR AMER. (test cod e = 51807) 138 ML/MIN/1.73 eGFR NON- AMER. (test code = 80005) 119 ML/MIN/1.73 CALC BUN/CREAT (test code = [...] = 2219) 32 U/L Cosmo NievesCBC W/AUTO [id number] 00:00:00* Test Item Value Reference Range Interpretation [...] code = 1015) 282 K/UL Cosmo NievesLIPID [id number] 00:00:00* Test Item Value Reference Range Interpretation Comme nts CHOLESTEROL (test code = 2210) 161 MG/DL TRIGLYCERIDES (test code = 2232) 162 MG/DL HDL CHOLESTEROL (test code = 2220) 39 MG/DL CALC LDL CHOL (test code = 2237) 96 MG/DL RISK RATIO LDL/HDL (test cod e = 2238) 2.46 RATIO Cosmo NievesCBC W/AUTO [id number] 00:00:00* Test Item Value Reference Range Interpretation [...] COUNT (test code = 1015) 282 K/UL COMPREHENSIVE METABOLIC [id number] 00:00:00* Test Item Value Reference Range Interpretation Comme nts GLUCOSE (test code = 2217) 173 MG/DL BUN (test code = 2208) 8 MG/DL CREATININE (test code = 2214) 0.55 MG/DL eGFR AMER. (test cod e = 89839) 138 ML/MIN/1.73 eGFR NON- AMER. (test code = 76598) 119 ML/MIN/1.73 CALC BUN/CREAT (test code = [...] code = 2219) 32 U/L Cosmo Martin AustinLIPID [id number] 00:00:00* Test Item Value Reference Range Interpretation Comme nts CHOLESTEROL (test code = 2210) 161 MG/DL TRIGLYCERIDES (test code = 2232) 162 MG/DL HDL CHOLESTEROL (test code = 2220) 39 MG/DL CALC LDL CHOL (test code = 2237) 96 MG/DL RISK RATIO LDL/HDL (test cod e = 2238) 2.46 RATIO CBC W/AUTO [id number] 00:00:00* Test Item Value Reference Range Interpretation [...] code = 1015) 282 K/UL Cosmo Martin EzequielCOMPREHENSIVE METABOLIC [id number] 00:00:00* Test Item Value Reference Range Interpretation Comme nts GLUCOSE (test code = 2217) 173 MG/DL BUN (test code = 2208) 8 MG/DL CREATININE (test code = 2214) 0.55 MG/DL eGFR AMER. (test cod e = 95640) 138 ML/MIN/1.73 eGFR NON- AMER. (test code = 25246) 119 ML/MIN/1.73 CALC BUN/CREAT (test code = [...] code = 2219) 32 U/L CBC W/AUTO [id number] 00:00:00* Test Item Value Reference Range Interpretation [...] (test code = 1015) 282 K/UL LIPID [id number] 00:00:00* Test Item Value Reference Range Interpretation Comme nts CHOLESTEROL (test code = 2210) 161 MG/DL TRIGLYCERIDES (test code = 2232) 162 MG/DL HDL CHOLESTEROL (test code = 2220) 39 MG/DL CALC LDL CHOL (test code = 2237) 96 MG/DL RISK RATIO LDL/HDL (test cod e = 2238) 2.46 RATIO COMPREHENSIVE METABOLIC [id number] 00:00:00* Test Item Value Reference Range Interpretation Comme nts GLUCOSE (test code = 2217) 173 MG/DL BUN (test code = 2208) 8 MG/DL CREATININE (test code = 2214) 0.55 MG/DL eGFR AMER. (test cod e = 44792) 138 ML/MIN/1.73 eGFR NON- AMER. (test code = 53233) 119 ML/MIN/1.73 CALC BUN/CREAT (test code = [...] ALT (test code = 2219) 32 U/L [id number] 00:00:00* Test Item Value Reference Range Interpretation Comme nts TSH, THIRD GENERATION (test code = 2821) 4.100 UIU/ML Cosmo F [id number] 00:00:00* Test Item Value Reference Range Interpretation Comme nts TSH, THIRD GENERATION (test code = 2821) 4.100 UIU/ML Cosmo F [id number] 00:00:00* Test Item Value Reference Range Interpretation Comme nts TSH, THIRD GENERATION (test code = 2821) 4.100 UIU/ML Cosmo F [id number] 00:00:00* Test Item Value Reference Range Interpretation Comme nts TSH, THIRD GENERATION (test code = 2821) 4.100 UIU/ML Cosmo [id number] 00:00:00* Test Item Value Reference Range Interpretation Comme nts TSH, THIRD GENERATION (test code = 2821) 4.100 UIU/ML [id number] 00:00:00* Test Item Value Reference Range Interpretation Comme nts TSH, THIRD GENERATION (test code = 2821) 4.100 UIU/ML HEMOGLOBIN [id number] 00:00:00* Test Item Value Reference Range Interpretation Comme nts HEMOGLOBIN A1c (test code = 95093) 9.0 % Cosmo NievesCOMPREHENSIVE METABOLIC [id number] 00:00:00* Test Item Value Reference Range Interpretation Comme nts GLUCOSE (test code = 2217) 176 MG/DL BUN (test code = 2208) 8 MG/DL CREATININE (test code = 2214) 0.53 MG/DL eGFR AMER. (test cod e = 24361) 140 ML/MIN/1.73 eGFR NON- AMER. (test code = 74719) 120 ML/MIN/1.73 CALC BUN/CREAT (test code = [...] code = 2219) 35 U/L Cosmo NievesHEMOGLOBIN [id number] 00:00:00* Test Item Value Reference Range Interpretation Comme parisa HEMOGLOBIN A1c (test code = 79447) 9.0 % Cosmo NievesCOMPREHENSIVE METABOLIC [id number] 00:00:00* Test Item Value Reference Range Interpretation Comme nts GLUCOSE (test code = 2217) 176 MG/DL BUN (test code = 2208) 8 MG/DL CREATININE (test code = 2214) 0.53 MG/DL eGFR AMER. (test cod e = 28208) 140 ML/MIN/1.73 eGFR NON- AMER. (test code = 35413) 120 ML/MIN/1.73 CALC BUN/CREAT (test code = [...] code = 2219) 35 U/L Cosmo NievesHEMOGLOBIN [id number] 00:00:00* Test Item Value Reference Range Interpretation Comme nts HEMOGLOBIN A1c (test code = 80361) 9.0 % Cosmo NievesCOMPREHENSIVE METABOLIC [id number] 00:00:00* Test Item Value Reference Range Interpretation Comme nts GLUCOSE (test code = 2217) 176 MG/DL BUN (test code = 2208) 8 MG/DL CREATININE (test code = 2214) 0.53 MG/DL eGFR AMER. (test cod e = 27344) 140 ML/MIN/1.73 eGFR NON- AMER. (test code = 99643) 120 ML/MIN/1.73 CALC BUN/CREAT (test code = [...] code = 2219) 35 U/L Cosmo NievesHEMOGLOBIN [id number] 00:00:00* Test Item Value Reference Range Interpretation Comme nts HEMOGLOBIN A1c (test code = 30844) 9.0 % Cosmo NievesCOMPREHENSIVE METABOLIC [id number] 00:00:00* Test Item Value Reference Range Interpretation Comme nts GLUCOSE (test code = 2217) 176 MG/DL BUN (test code = 2208) 8 MG/DL CREATININE (test code = 2214) 0.53 MG/DL eGFR AMER. (test cod e = 91989) 140 ML/MIN/1.73 eGFR NON- AMER. (test code = 58714) 120 ML/MIN/1.73 CALC BUN/CREAT (test code = [...] (test code = 2219) 35 U/L HEMOGLOBIN [id number] 00:00:00* Test Item Value Reference Range Interpretation Comme nts HEMOGLOBIN A1c (test code = 31139) 9.0 % COMPREHENSIVE METABOLIC [id number] 00:00:00* Test Item Value Reference Range Interpretation Comme nts GLUCOSE (test code = 2217) 176 MG/DL BUN (test code = 2208) 8 MG/DL CREATININE (test code = 2214) 0.53 MG/DL eGFR AMER. (test cod e = 13757) 140 ML/MIN/1.73 eGFR NON- AMER. (test code = 70492) 120 ML/MIN/1.73 CALC BUN/CREAT (test code = [...] code = 2219) 35 U/L Cosmo Martin EzequielCOMPREHENSIVE METABOLIC [id number] 00:00:00* Test Item Value Reference Range Interpretation Comme nts GLUCOSE (test code = 2217) 176 MG/DL BUN (test code = 2208) 8 MG/DL CREATININE (test code = 2214) 0.53 MG/DL eGFR AMER. (test cod e = 73777) 140 ML/MIN/1.73 eGFR NON- AMER. (test code = 56360) 120 ML/MIN/1.73 CALC BUN/CREAT (test code = [...] (test code = 2219) 35 U/L HEMOGLOBIN [id number] 00:00:00* Test Item Value Reference Range Interpretation Comme nts HEMOGLOBIN A1c (test code = 31970) 9.0 % LIPID PANEL (REFL)2019-06-20 00:00:00* Test Item Value Reference Range Interpretation Comme nts CHOLESTEROL, TOTAL (test cod e = 2093-3) 192 mg/dL HDL CHOLESTEROL (test code = 2085-9) 51 mg/dL TRIGLYCERIDES (test code = 2571-8) 221 mg/dL LDL-CHOLESTEROL (test code = 31390-4) 108 mg/dL(calc) CHOL/HDLC RATIO (test code = 9830-1) 3.8 (calc) NON HDL CHOLESTEROL (test code = 69567-8) 141 mg/dL(calc) Cosmo Martin EzequielCOMPREHENSIVE METABOLIC [id number] 00:00:00* Test Item Value Reference Range Interpretation Comme nts GLUCOSE (test code = 2345-7) 194 mg/dL UREA NITROGEN (BUN) (test code = 3094-0) 10 mg/dL CREATININE (test code = 2160-0) 0.61 mg/dL eGFR NON-AFR. MALDIVIAN (test code = 21502-2) 116 mL/min/1.73m2 eGFR (test code = 00124-9) 134 mL/min/1.73m2 BUN/CREATININE RATIO (test code = 3097-3) NOT APPLICABLE (calc) SODIUM (test code = 2951-2) 135 mmol/L POTASSIUM (test code = 2823-3) 4.0 mmol/L CHLORIDE (test code = 2075-0) 97 mmol/L CARBON DIOXIDE (test code = 8-9) 26 mmol/L CALCIUM (test code = 54778-3) 9.5 mg/dL PROTEIN, TOTAL (test code = 2885-2) 6.7 g/dL ALBUMIN (test code = 1751-7) 4.0 g/dL GLOBULIN (test code = 87333-8) 2.7 g/dL(calc) ALBUMIN/GLOBULIN RATIO (test code = 1759-0) 1.5 (calc) BILIRUBIN, TOTAL (test code = 1975-2) 0.4 mg/dL ALKALINE PHOSPHATASE (test code = 6768-6) 76 U/L AST (test code = 1920-8) 35 U/L ALT (test code = 1742-6) 39 U/L Cosmo [id number] 00:00:00* Test Item Value Reference Range Interpretation Comme [facility] TSH (test code = 3016-3) 2.16 mIU/L Cosmo NievesHEMOGLOBIN [id number] 00:00:00* Test Item Value Reference Range Interpretation Comme [facility] HEMOGLOBIN A1c (test code = 4548-4) 10.2 %oftotalHgb Cosmo NievesCBC (INCLUDES DIFF/PLT)2019-06-20 00:00:00* Test Item Value Reference Range Interpretation Comme [facility] WHITE BLOOD CELL COUNT (test code [...] cells/uL ABSOLUTE BAND NEUTROPHILS (test code = 89965-3) DNR cells/uL ABSOLUTE METAMYELOCYTES (test code = 93436-3) DNR cells/uL ABSOLUTE MYELOCYTES (test code = 20591-7) DNR cells/uL ABSOLUTE PROMYELOCYTES (test code = 18518-4) DNR cells/uL ABSOLUTE LYMPHOCYTES (test code = 731-0) 2290 cells/uL ABSOLUTE MONOCYTES (test code = 742-7) 524 cells/uL ABSOLUTE EOSINOPHILS (test code = 711-2) 364 cells/uL ABSOLUTE BASOPHILS (test code = 704-7) 64 cells/uL ABSOLUTE BLASTS (test code = 07259-2) DNR cells/uL ABSOLUTE NUCLEATED RBC (test code = 49333-1) DNR cells/uL NEUTROPHILS (test code = 770-8) 69.7 % BAND NEUTROPHILS (test code = 764-1) DNR % METAMYELOCYTES (test code = 740-1) DNR % MYELOCYTES (test code = 749-2) DNR % PROMYELOCYTES (test code = 783-1) DNR % LYMPHOCYTES (test code = 736-9) 21.4 % REACTIVE LYMPHOCYTES (test code = 27539-5) DNR % MONOCYTES (test code = 5905-5) 4.9 % EOSINOPHILS (test code = 713-8) 3.4 % BASOPHILS (test code = 706-2) 0.6 % BLASTS (test code = 709-6) DNR % NUCLEATED RBC (test code = 75552-1) DNR /100WBC Cosmo Martin ConroeLIPID PANEL (REFL)2019-06-20 00:00:00* Test Item Value Reference Range Interpretation Comme nts CHOLESTEROL, TOTAL (test cod e = 2093-3) 192 mg/dL HDL CHOLESTEROL (test code = 2085-9) 51 mg/dL TRIGLYCERIDES (test code = 2571-8) 221 mg/dL LDL-CHOLESTEROL (test code = 53857-3) 108 mg/dL(calc) CHOL/HDLC RATIO (test code = 9830-1) 3.8 (calc) NON HDL CHOLESTEROL (test code = 58103-6) 141 mg/dL(calc) Cosmo Martin EzequielCOMPREHENSIVE METABOLIC [id number] 00:00:00* Test Item Value Reference Range Interpretation Comme nts GLUCOSE (test code = 2345-7) 194 mg/dL UREA NITROGEN (BUN) (test code = 3094-0) 10 mg/dL CREATININE (test code = 2160-0) 0.61 mg/dL eGFR NON-AFR. MALDIVIAN (test code = 84877-2) 116 mL/min/1.73m2 eGFR (test code = 38712-3) 134 mL/min/1.73m2 BUN/CREATININE RATIO (test code = 3097-3) NOT APPLICABLE (calc) SODIUM (test code = 2951-2) 135 mmol/L POTASSIUM (test code = 2823-3) 4.0 mmol/L CHLORIDE (test code = 2075-0) 97 mmol/L CARBON DIOXIDE (test code = 2027-9) 26 mmol/L CALCIUM (test code = 33292-8) 9.5 mg/dL PROTEIN, TOTAL (test code = 2885-2) 6.7 g/dL ALBUMIN (test code = 1751-7) 4.0 g/dL GLOBULIN (test code = 42868-5) 2.7 g/dL(calc) ALBUMIN/GLOBULIN RATIO (test code = 1759-0) 1.5 (calc) BILIRUBIN, TOTAL (test code = 1975-2) 0.4 mg/dL ALKALINE PHOSPHATASE (test code = 6768-6) 76 U/L AST (test code = 1920-8) 35 U/L ALT (test code = 1742-6) 39 U/L Cosmo [id number] 00:00:00* Test Item Value Reference Range Interpretation Comme [facility] TSH (test code = 3016-3) 2.16 mIU/L Cosmo NievesHEMOGLOBIN [id number] 00:00:00* Test Item Value Reference Range Interpretation Comme [facility] HEMOGLOBIN A1c (test code = 4548-4) 10.2 %oftotalHgb Cosmo NievesCBC (INCLUDES DIFF/PLT)2019-06-20 00:00:00* Test Item Value Reference Range Interpretation Comme [facility] WHITE BLOOD CELL COUNT (test code [...] cells/uL ABSOLUTE BAND NEUTROPHILS (test code = 88750-8) DNR cells/uL ABSOLUTE METAMYELOCYTES (test code = 83089-7) DNR cells/uL ABSOLUTE MYELOCYTES (test code = 09844-0) DNR cells/uL ABSOLUTE PROMYELOCYTES (test code = 63619-7) DNR cells/uL ABSOLUTE LYMPHOCYTES (test code = 731-0) 2290 cells/uL ABSOLUTE MONOCYTES (test code = 742-7) 524 cells/uL ABSOLUTE EOSINOPHILS (test code = 711-2) 364 cells/uL ABSOLUTE BASOPHILS (test code = 704-7) 64 cells/uL ABSOLUTE BLASTS (test code = 03885-2) DNR cells/uL ABSOLUTE NUCLEATED RBC (test code = 27236-2) DNR cells/uL NEUTROPHILS (test code = 770-8) 69.7 % BAND NEUTROPHILS (test code = 764-1) DNR % METAMYELOCYTES (test code = 740-1) DNR % MYELOCYTES (test code = 749-2) DNR % PROMYELOCYTES (test code = 783-1) DNR % LYMPHOCYTES (test code = 736-9) 21.4 % REACTIVE LYMPHOCYTES (test code = 08468-1) DNR % MONOCYTES (test code = 5905-5) 4.9 % EOSINOPHILS (test code = 713-8) 3.4 % BASOPHILS (test code = 706-2) 0.6 % BLASTS (test code = 709-6) DNR % NUCLEATED RBC (test code = 45388-4) DNR /100WBC Cosmo Martin AustinLIPID PANEL (REFL)2019-06-20 00:00:00* Test Item Value Reference Range Interpretation Comme nts CHOLESTEROL, TOTAL (test cod e = 2093-3) 192 mg/dL HDL CHOLESTEROL (test code = 2085-9) 51 mg/dL TRIGLYCERIDES (test code = 2571-8) 221 mg/dL LDL-CHOLESTEROL (test code = 14871-3) 108 mg/dL(calc) CHOL/HDLC RATIO (test code = 9830-1) 3.8 (calc) NON HDL CHOLESTEROL (test code = 10722-5) 141 mg/dL(calc) Cosmo NievesCOMPREHENSIVE METABOLIC [id number] 00:00:00* Test Item Value Reference Range Interpretation Comme nts GLUCOSE (test code = 2345-7) 194 mg/dL UREA NITROGEN (BUN) (test code = 3094-0) 10 mg/dL CREATININE (test code = 2160-0) 0.61 mg/dL eGFR NON-AFR. MALDIVIAN (test code = 49229-7) 116 mL/min/1.73m2 eGFR (test code = 29381-3) 134 mL/min/1.73m2 BUN/CREATININE RATIO (test code = 3097-3) NOT APPLICABLE (calc) SODIUM (test code = 2951-2) 135 mmol/L POTASSIUM (test code = 2823-3) 4.0 mmol/L CHLORIDE (test code = 2075-0) 97 mmol/L CARBON DIOXIDE (test code = 2027-9) 26 mmol/L CALCIUM (test code = 86152-6) 9.5 mg/dL PROTEIN, TOTAL (test code = 2885-2) 6.7 g/dL ALBUMIN (test code = 1751-7) 4.0 g/dL GLOBULIN (test code = 88773-2) 2.7 g/dL(calc) ALBUMIN/GLOBULIN RATIO (test code = 1759-0) 1.5 (calc) BILIRUBIN, TOTAL (test code = 1975-2) 0.4 mg/dL ALKALINE PHOSPHATASE (test code = 6768-6) 76 U/L AST (test code = 1920-8) 35 U/L ALT (test code = 1742-6) 39 U/L Cosmo [id number] 00:00:00* Test Item Value Reference Range Interpretation Comme parisa TSH (test code = 3016-3) 2.16 mIU/L Cosmo NievesHEMOGLOBIN [id number] 00:00:00* Test Item Value Reference Range Interpretation [...] cells/uL ABSOLUTE BAND NEUTROPHILS (test code = 91817-9) DNR cells/uL ABSOLUTE METAMYELOCYTES (test code = 45045-0) DNR cells/uL ABSOLUTE MYELOCYTES (test code = 16116-0) DNR cells/uL ABSOLUTE PROMYELOCYTES (test code = 58826-7) DNR cells/uL ABSOLUTE LYMPHOCYTES (test code = 731-0) 2290 cells/uL ABSOLUTE MONOCYTES (test code = 742-7) 524 cells/uL ABSOLUTE EOSINOPHILS (test code = 711-2) 364 cells/uL ABSOLUTE BASOPHILS (test code = 704-7) 64 cells/uL ABSOLUTE BLASTS (test code = 54277-1) DNR cells/uL ABSOLUTE NUCLEATED RBC (test code = 79194-3) DNR cells/uL NEUTROPHILS (test code = 770-8) 69.7 % BAND NEUTROPHILS (test code = 764-1) DNR % METAMYELOCYTES (test code = 740-1) DNR % MYELOCYTES (test code = 749-2) DNR % PROMYELOCYTES (test code = 783-1) DNR % LYMPHOCYTES (test code = 736-9) 21.4 % REACTIVE LYMPHOCYTES (test code = 40966-0) DNR % MONOCYTES (test code = 5905-5) 4.9 % EOSINOPHILS (test code = 713-8) 3.4 % BASOPHILS (test code = 706-2) 0.6 % BLASTS (test code = 709-6) DNR % NUCLEATED RBC (test code = 69015-3) DNR /100WBC Cosmo NievesLIPID PANEL (REFL)2019-06-20 00:00:00* Test Item Value Reference Range Interpretation Comme nts CHOLESTEROL, TOTAL (test cod e = 2093-3) 192 mg/dL HDL CHOLESTEROL (test code = 2085-9) 51 mg/dL TRIGLYCERIDES (test code = 2571-8) 221 mg/dL LDL-CHOLESTEROL (test code = 28338-2) 108 mg/dL(calc) CHOL/HDLC RATIO (test code = 9830-1) 3.8 (calc) NON HDL CHOLESTEROL (test code = 51960-9) 141 mg/dL(calc) Cosmo NievesCOMPREHENSIVE METABOLIC [id number] 00:00:00* Test Item Value Reference Range Interpretation Comme nts GLUCOSE (test code = 2345-7) 194 mg/dL UREA NITROGEN (BUN) (test code = 3094-0) 10 mg/dL CREATININE (test code = 2160-0) 0.61 mg/dL eGFR NON-AFR. MALDIVIAN (test code = 62937-0) 116 mL/min/1.73m2 eGFR (test code = 81953-3) 134 mL/min/1.73m2 BUN/CREATININE RATIO (test code = 3097-3) NOT APPLICABLE (calc) SODIUM (test code = 2951-2) 135 mmol/L POTASSIUM (test code = 2823-3) 4.0 mmol/L CHLORIDE (test code = 2075-0) 97 mmol/L CARBON DIOXIDE (test code = 2027-9) 26 mmol/L CALCIUM (test code = 62535-9) 9.5 mg/dL PROTEIN, TOTAL (test code = 2885-2) 6.7 g/dL ALBUMIN (test code = 1751-7) 4.0 g/dL GLOBULIN (test code = 64536-7) 2.7 g/dL(calc) ALBUMIN/GLOBULIN RATIO (test code = 1759-0) 1.5 (calc) BILIRUBIN, TOTAL (test code = 1975-2) 0.4 mg/dL ALKALINE PHOSPHATASE (test code = 6768-6) 76 U/L AST (test code = 1920-8) 35 U/L ALT (test code = 1742-6) 39 U/L Cosmo [id number] 00:00:00* Test Item Value Reference Range Interpretation Comme nts TSH (test code = 3016-3) 2.16 mIU/L Cosmo NievesCBC (INCLUDES DIFF/PLT)2019-06-20 00:00:00* Test Item [...] cells/uL ABSOLUTE BAND NEUTROPHILS (test code = 68202-4) DNR cells/uL ABSOLUTE METAMYELOCYTES (test code = 78923-9) DNR cells/uL ABSOLUTE MYELOCYTES (test code = 51796-1) DNR cells/uL ABSOLUTE PROMYELOCYTES (test code = 37545-7) DNR cells/uL ABSOLUTE LYMPHOCYTES (test code = 731-0) 2290 cells/uL ABSOLUTE MONOCYTES (test code = 742-7) 524 cells/uL ABSOLUTE EOSINOPHILS (test code = 711-2) 364 cells/uL ABSOLUTE BASOPHILS (test code = 704-7) 64 cells/uL ABSOLUTE BLASTS (test code = 61184-3) DNR cells/uL ABSOLUTE NUCLEATED RBC (test code = 76517-1) DNR cells/uL NEUTROPHILS (test code = 770-8) 69.7 % BAND NEUTROPHILS (test code = 764-1) DNR % METAMYELOCYTES (test code = 740-1) DNR % MYELOCYTES (test code = 749-2) DNR % PROMYELOCYTES (test code = 783-1) DNR % LYMPHOCYTES (test code = 736-9) 21.4 % REACTIVE LYMPHOCYTES (test code = 12076-7) DNR % MONOCYTES (test code = 5905-5) 4.9 % EOSINOPHILS (test code = 713-8) 3.4 % BASOPHILS (test code = 706-2) 0.6 % BLASTS (test code = 709-6) DNR % NUCLEATED RBC (test code = 71896-5) DNR /100WBC COMMENT(S) (test code = 8251-1) HEMOGLOBIN [id number] 00:00:00* Test Item Value Reference Range Interpretation Comme nts HEMOGLOBIN A1c (test code = 4548-4) 10.2 %oftotalHgb Cosmo Martin AustinLIPID PANEL (REFL)2019-06-20 00:00:00* Test Item Value Reference Range Interpretation Comme nts CHOLESTEROL, TOTAL (test cod e = 2093-3) 192 mg/dL HDL CHOLESTEROL (test code = 2085-9) 51 mg/dL TRIGLYCERIDES (test code = 2571-8) 221 mg/dL LDL-CHOLESTEROL (test code = 13697-2) 108 mg/dL(calc) CHOL/HDLC RATIO (test code = 9830-1) 3.8 (calc) NON HDL CHOLESTEROL (test code = 74786-7) 141 mg/dL(calc) COMPREHENSIVE METABOLIC [id number] 00:00:00* Test Item Value Reference Range Interpretation Comme nts GLUCOSE (test code = 2345-7) 194 mg/dL UREA NITROGEN (BUN) (test code = 3094-0) 10 mg/dL CREATININE (test code = 2160-0) 0.61 mg/dL eGFR NON-AFR. MALDIVIAN (test code = 02684-3) 116 mL/min/1.73m2 eGFR (test code = 05413-7) 134 mL/min/1.73m2 BUN/CREATININE RATIO (test code = 3097-3) NOT APPLICABLE (calc) SODIUM (test code = 2951-2) 135 mmol/L POTASSIUM (test code = 2823-3) 4.0 mmol/L CHLORIDE (test code = 2075-0) 97 mmol/L CARBON DIOXIDE (test code = 2027-9) 26 mmol/L CALCIUM (test code = 99527-8) 9.5 mg/dL PROTEIN, TOTAL (test code = 2885-2) 6.7 g/dL ALBUMIN (test code = 1751-7) 4.0 g/dL GLOBULIN (test code = 04594-0) 2.7 g/dL(calc) ALBUMIN/GLOBULIN RATIO (test code = 1759-0) 1.5 (calc) BILIRUBIN, TOTAL (test code = 1975-2) 0.4 mg/dL ALKALINE PHOSPHATASE (test code = 6768-6) 76 U/L AST (test code = 1920-8) 35 U/L ALT (test code = 1742-6) 39 U/L CBC (INCLUDES DIFF/PLT)2019-06-20 00:00:00* Test Item Value [...] cells/uL ABSOLUTE BAND NEUTROPHILS (test code = 19996-9) DNR cells/uL ABSOLUTE METAMYELOCYTES (test code = 00278-2) DNR cells/uL ABSOLUTE MYELOCYTES (test code = 91239-9) DNR cells/uL ABSOLUTE PROMYELOCYTES (test code = 70054-3) DNR cells/uL ABSOLUTE LYMPHOCYTES (test code = 731-0) 2290 cells/uL ABSOLUTE MONOCYTES (test code = 742-7) 524 cells/uL ABSOLUTE EOSINOPHILS (test code = 711-2) 364 cells/uL ABSOLUTE BASOPHILS (test code = 704-7) 64 cells/uL ABSOLUTE BLASTS (test code = 55600-8) DNR cells/uL ABSOLUTE NUCLEATED RBC (test code = 84288-4) DNR cells/uL NEUTROPHILS (test code = 770-8) 69.7 % BAND NEUTROPHILS (test code = 764-1) DNR % METAMYELOCYTES (test code = 740-1) DNR % MYELOCYTES (test code = 749-2) DNR % PROMYELOCYTES (test code = 783-1) DNR % LYMPHOCYTES (test code = 736-9) 21.4 % REACTIVE LYMPHOCYTES (test code = 36493-8) DNR % MONOCYTES (test code = 5905-5) 4.9 % EOSINOPHILS (test code = 713-8) 3.4 % BASOPHILS (test code = 706-2) 0.6 % BLASTS (test code = 709-6) DNR % NUCLEATED RBC (test code = 96652-3) DNR /100WBC Cosmo [id number] 00:00:00* Test Item Value Reference Range Interpretation Comme nts TSH (test code = 3016-3) 2.16 mIU/L HEMOGLOBIN [id number] 00:00:00* Test Item Value Reference Range Interpretation [...] cells/uL ABSOLUTE BAND NEUTROPHILS (test code = 71514-6) DNR cells/uL ABSOLUTE METAMYELOCYTES (test code = 60685-9) DNR cells/uL ABSOLUTE MYELOCYTES (test code = 73800-8) DNR cells/uL ABSOLUTE PROMYELOCYTES (test code = 05735-2) DNR cells/uL ABSOLUTE LYMPHOCYTES (test code = 731-0) 2290 cells/uL ABSOLUTE MONOCYTES (test code = 742-7) 524 cells/uL ABSOLUTE EOSINOPHILS (test code = 711-2) 364 cells/uL ABSOLUTE BASOPHILS (test code = 704-7) 64 cells/uL ABSOLUTE BLASTS (test code = 04413-9) DNR cells/uL ABSOLUTE NUCLEATED RBC (test code = 63807-2) DNR cells/uL NEUTROPHILS (test code = 770-8) 69.7 % BAND NEUTROPHILS (test code = 764-1) DNR % METAMYELOCYTES (test code = 740-1) DNR % MYELOCYTES (test code = 749-2) DNR % PROMYELOCYTES (test code = 783-1) DNR % LYMPHOCYTES (test code = 736-9) 21.4 % REACTIVE LYMPHOCYTES (test code = 95641-2) DNR % MONOCYTES (test code = 5905-5) 4.9 % EOSINOPHILS (test code = 713-8) 3.4 % BASOPHILS (test code = 706-2) 0.6 % BLASTS (test code = 709-6) DNR % NUCLEATED RBC (test code = 74574-0) DNR /100WBC COMMENT(S) (test code = 8251-1) LIPID PANEL (REFL)2019-06-20 00:00:00* Test Item Value Reference Range Interpretation Comme nts CHOLESTEROL, TOTAL (test cod e = 2093-3) 192 mg/dL HDL CHOLESTEROL (test code = 2085-9) 51 mg/dL TRIGLYCERIDES (test code = 2571-8) 221 mg/dL LDL-CHOLESTEROL (test code = 50847-4) 108 mg/dL(calc) CHOL/HDLC RATIO (test code = 9830-1) 3.8 (calc) NON HDL CHOLESTEROL (test code = 89311-6) 141 mg/dL(calc) COMPREHENSIVE METABOLIC [id number] 00:00:00* Test Item Value Reference Range Interpretation Comme nts GLUCOSE (test code = 2345-7) 194 mg/dL UREA NITROGEN (BUN) (test code = 3094-0) 10 mg/dL CREATININE (test code = 2160-0) 0.61 mg/dL eGFR NON-AFR. MALDIVIAN (test code = 76945-3) 116 mL/min/1.73m2 eGFR (test code = 35671-4) 134 mL/min/1.73m2 BUN/CREATININE RATIO (test code = 3097-3) NOT APPLICABLE (calc) SODIUM (test code = 2951-2) 135 mmol/L POTASSIUM (test code = 2823-3) 4.0 mmol/L CHLORIDE (test code = 2075-0) 97 mmol/L CARBON DIOXIDE (test code = 2027-9) 26 mmol/L CALCIUM (test code = 73811-4) 9.5 mg/dL PROTEIN, TOTAL (test code = 2885-2) 6.7 g/dL ALBUMIN (test code = 1751-7) 4.0 g/dL GLOBULIN (test code = 06824-1) 2.7 g/dL(calc) ALBUMIN/GLOBULIN RATIO (test code = 1759-0) 1.5 (calc) BILIRUBIN, TOTAL (test code = 1975-2) 0.4 mg/dL ALKALINE PHOSPHATASE (test code = 6768-6) 76 U/L AST (test code = 1920-8) 35 U/L ALT (test code = 1742-6) 39 U/L [id number] 00:00:00* Test Item Value Reference Range Interpretation Comme nts TSH (test code = 3016-3) 2.16 mIU/L HEMOGLOBIN [id number] 00:00:00* Test Item Value Reference Range Interpretation Comme nts HEMOGLOBIN A1c (test code = 4548-4) 10.2 %oftotalHgb HEMOGLOBIN [id number] 00:00:00* Test Item Value Reference Range Interpretation Comme nts HEMOGLOBIN A1c (test code = 33776) 9.5 % Cosmo Martin AustinLIPID [id number] 00:00:00* Test Item Value Reference Range Interpretation Comme nts CHOLESTEROL (test code = 2210) 208 MG/DL TRIGLYCERIDES (test code = 2232) 192 MG/DL HDL CHOLESTEROL (test code = 2220) 48 MG/DL CALC LDL CHOL (test code = 2237) 122 MG/DL RISK RATIO LDL/HDL (test cod e = 2238) 2.53 RATIO Cosmo NievesCOMPREHENSIVE METABOLIC [id number] 00:00:00* Test Item Value Reference Range Interpretation Comme nts GLUCOSE (test code = 2217) 236 MG/DL BUN (test code = 2208) 8 MG/DL CREATININE (test code = 2214) 0.67 MG/DL eGFR AMER. (test cod e = 58554) 130 ML/MIN/1.73 eGFR NON- AMER. (test code = 48195) 112 ML/MIN/1.73 CALC BUN/CREAT (test code = [...] (test code = 2219) 62 U/L Cosmo [id number] 00:00:00* Test Item Value Reference Range Interpretation Comme [facility] TSH, THIRD GENERATION (test code = 2821) 1.550 UIU/ML Cosmo NievesCBC W/AUTO [id number] 00:00:00* Test Item Value Reference Range Interpretation Comme [facility] WBC (test code = 1001) 11.9 K/UL [...] code = 1015) 304 K/UL Cosmo NievesHEMOGLOBIN [id number] 00:00:00* Test Item Value Reference Range Interpretation Comme parisa HEMOGLOBIN A1c (test code = 56357) 9.5 % Cosmo NievesLIPID [id number] 00:00:00* Test Item Value Reference Range Interpretation Comme nts CHOLESTEROL (test code = 2210) 208 MG/DL TRIGLYCERIDES (test code = 2232) 192 MG/DL HDL CHOLESTEROL (test code = 2220) 48 MG/DL CALC LDL CHOL (test code = 2237) 122 MG/DL RISK RATIO LDL/HDL (test cod e = 2238) 2.53 RATIO Cosmo NievesCOMPREHENSIVE METABOLIC [id number] 00:00:00* Test Item Value Reference Range Interpretation Comme nts GLUCOSE (test code = 2217) 236 MG/DL BUN (test code = 2208) 8 MG/DL CREATININE (test code = 2214) 0.67 MG/DL eGFR AMER. (test cod e = 16924) 130 ML/MIN/1.73 eGFR NON- AMER. (test code = 03294) 112 ML/MIN/1.73 CALC BUN/CREAT (test code = [...] (test code = 2219) 62 U/L Cosmo [id number] 00:00:00* Test Item Value Reference Range Interpretation Comme nts TSH, THIRD GENERATION (test code = 2821) 1.550 UIU/ML Cosmo NievesCBC W/AUTO [id number] 00:00:00* Test Item Value Reference Range Interpretation [...] code = 1015) 304 K/UL Cosmo NievesHEMOGLOBIN [id number] 00:00:00* Test Item Value Reference Range Interpretation Comme parisa HEMOGLOBIN A1c (test code = 39196) 9.5 % Cosmo NievesLIPID [id number] 00:00:00* Test Item Value Reference Range Interpretation Comme nts CHOLESTEROL (test code = 2210) 208 MG/DL TRIGLYCERIDES (test code = 2232) 192 MG/DL HDL CHOLESTEROL (test code = 2220) 48 MG/DL CALC LDL CHOL (test code = 2237) 122 MG/DL RISK RATIO LDL/HDL (test cod e = 2238) 2.53 RATIO Cosmo NievesCOMPREHENSIVE METABOLIC [id number] 00:00:00* Test Item Value Reference Range Interpretation Comme nts GLUCOSE (test code = 2217) 236 MG/DL BUN (test code = 2208) 8 MG/DL CREATININE (test code = 2214) 0.67 MG/DL eGFR AMER. (test cod e = 89737) 130 ML/MIN/1.73 eGFR NON- AMER. (test code = 28947) 112 ML/MIN/1.73 CALC BUN/CREAT (test code = [...] (test code = 2219) 62 U/L Cosmo [id number] 00:00:00* Test Item Value Reference Range Interpretation Comme nts TSH, THIRD GENERATION (test code = 2821) 1.550 UIU/ML Cosmo NievesCBC W/AUTO [id number] 00:00:00* Test Item Value Reference Range Interpretation [...] code = 1015) 304 K/UL Cosmo NievesHEMOGLOBIN [id number] 00:00:00* Test Item Value Reference Range Interpretation Comme nts HEMOGLOBIN A1c (test code = 10665) 9.5 % Cosmo NievesCBC W/AUTO [id number] 00:00:00* Test Item Value Reference Range Interpretation [...] COUNT (test code = 1015) 304 K/UL LIPID [id number] 00:00:00* Test Item Value Reference Range Interpretation Comme nts CHOLESTEROL (test code = 2210) 208 MG/DL TRIGLYCERIDES (test code = 2232) 192 MG/DL HDL CHOLESTEROL (test code = 2220) 48 MG/DL CALC LDL CHOL (test code = 2237) 122 MG/DL RISK RATIO LDL/HDL (test cod e = 2238) 2.53 RATIO Cosmo Veronica EzequielCOMPREHENSIVE METABOLIC [id number] 00:00:00* Test Item Value Reference Range Interpretation Comme nts GLUCOSE (test code = 2217) 236 MG/DL BUN (test code = 2208) 8 MG/DL CREATININE (test code = 2214) 0.67 MG/DL eGFR AMER. (test cod e = 60762) 130 ML/MIN/1.73 eGFR NON- AMER. (test code = 37387) 112 ML/MIN/1.73 CALC BUN/CREAT (test code = [...] (test code = 2219) 62 U/L Cosmo [id number] 00:00:00* Test Item Value Reference Range Interpretation Comme parisa TSH, THIRD GENERATION (test code = 2821) 1.550 UIU/ML Cosmo NievesHEMOGLOBIN [id number] 00:00:00* Test Item Value Reference Range Interpretation Comme nts HEMOGLOBIN A1c (test code = 89214) 9.5 % CBC W/AUTO [id number] 00:00:00* Test Item Value Reference Range Interpretation [...] (test code = 1015) 304 K/UL Cosmo NievesLIPID [id number] 00:00:00* Test Item Value Reference Range Interpretation Comme nts CHOLESTEROL (test code = 2210) 208 MG/DL TRIGLYCERIDES (test code = 2232) 192 MG/DL HDL CHOLESTEROL (test code = 2220) 48 MG/DL CALC LDL CHOL (test code = 2237) 122 MG/DL RISK RATIO LDL/HDL (test cod e = 2238) 2.53 RATIO COMPREHENSIVE METABOLIC [id number] 00:00:00* Test Item Value Reference Range Interpretation Comme nts GLUCOSE (test code = 2217) 236 MG/DL BUN (test code = 2208) 8 MG/DL CREATININE (test code = 2214) 0.67 MG/DL eGFR AMER. (test cod e = 87584) 130 ML/MIN/1.73 eGFR NON- AMER. (test code = 73060) 112 ML/MIN/1.73 CALC BUN/CREAT (test code = [...] ALT (test code = 2219) 62 U/L [id number] 00:00:00* Test Item Value Reference Range Interpretation Comme nts TSH, THIRD GENERATION (test code = 2821) 1.550 UIU/ML CBC W/AUTO [id number] 00:00:00* Test Item Value Reference Range Interpretation [...] (test code = 1015) 304 K/UL HEMOGLOBIN [id number] 00:00:00* Test Item Value Reference Range Interpretation Comme nts HEMOGLOBIN A1c (test code = 99411) 9.5 % LIPID [id number] 00:00:00* Test Item Value Reference Range Interpretation Comme nts CHOLESTEROL (test code = 2210) 208 MG/DL TRIGLYCERIDES (test code = 2232) 192 MG/DL HDL CHOLESTEROL (test code = 2220) 48 MG/DL CALC LDL CHOL (test code = 2237) 122 MG/DL RISK RATIO LDL/HDL (test cod e = 223) 2.53 RATIO COMPREHENSIVE METABOLIC [id number] 00:00:00* Test Item Value Reference Range Interpretation Comme nts GLUCOSE (test code = 2217) 236 MG/DL BUN (test code = 2208) 8 MG/DL CREATININE (test code = 2214) 0.67 MG/DL eGFR AMER. (test cod e = 53398) 130 ML/MIN/1.73 eGFR NON- AMER. (test code = 86372) 112 ML/MIN/1.73 CALC BUN/CREAT (test code = [...] ALT (test code = 2219) 62 U/L [id number] 00:00:00* Test Item Value Reference Range Interpretation Comme nts TSH, THIRD GENERATION (test code = 2821) 1.550 UIU/ML LIPID [id number] 00:00:00* Test Item Value Reference Range Interpretation Comme nts CHOLESTEROL (test code = 2210) 209 MG/DL TRIGLYCERIDES (test code = 2232) 137 MG/DL HDL CHOLESTEROL (test code = 2220) 49 MG/DL CALC LDL CHOL (test code = 2237) 133 MG/DL RISK RATIO LDL/HDL (test cod e = 2238) 2.71 RATIO Cosmo NievesCOMPREHENSIVE METABOLIC [id number] 00:00:00* Test Item Value Reference Range Interpretation Comme nts GLUCOSE (test code = 2217) 222 MG/DL BUN (test code = 2208) 10 MG/DL CREATININE (test code = 2214) 0.63 MG/DL eGFR AMER. (test cod e = 11328) 134 ML/MIN/1.73 eGFR NON- AMER. (test code = 84020) 115 ML/MIN/1.73 CALC BUN/CREAT (test code = [...] (test code = 2219) 48 U/L Cosmo [id number] 00:00:00* Test Item Value Reference Range Interpretation Comme nts TSH, THIRD GENERATION (test code = 2821) 2.380 UIU/ML Cosmo Martin AustinLIPID [id number] 00:00:00* Test Item Value Reference Range Interpretation Comme nts CHOLESTEROL (test code = 2210) 209 MG/DL TRIGLYCERIDES (test code = 2232) 137 MG/DL HDL CHOLESTEROL (test code = 2220) 49 MG/DL CALC LDL CHOL (test code = 2237) 133 MG/DL RISK RATIO LDL/HDL (test cod e = 2238) 2.71 RATIO Cosmo NievesCOMPREHENSIVE METABOLIC [id number] 00:00:00* Test Item Value Reference Range Interpretation Comme nts GLUCOSE (test code = 2217) 222 MG/DL BUN (test code = 2208) 10 MG/DL CREATININE (test code = 2214) 0.63 MG/DL eGFR AMER. (test cod e = 78804) 134 ML/MIN/1.73 eGFR NON- AMER. (test code = 31593) 115 ML/MIN/1.73 CALC BUN/CREAT (test code = [...] (test code = 2219) 48 U/L Cosmo [id number] 00:00:00* Test Item Value Reference Range Interpretation Comme nts TSH, THIRD GENERATION (test code = 2821) 2.380 UIU/ML Cosmo NievesLIPID [id number] 00:00:00* Test Item Value Reference Range Interpretation Comme nts CHOLESTEROL (test code = 2210) 209 MG/DL TRIGLYCERIDES (test code = 2232) 137 MG/DL HDL CHOLESTEROL (test code = 2220) 49 MG/DL CALC LDL CHOL (test code = 2237) 133 MG/DL RISK RATIO LDL/HDL (test cod e = 2238) 2.71 RATIO Cosmo NievesCOMPREHENSIVE METABOLIC [id number] 00:00:00* Test Item Value Reference Range Interpretation Comme nts GLUCOSE (test code = 2217) 222 MG/DL BUN (test code = 2208) 10 MG/DL CREATININE (test code = 2214) 0.63 MG/DL eGFR AMER. (test cod e = 61629) 134 ML/MIN/1.73 eGFR NON- AMER. (test code = 04495) 115 ML/MIN/1.73 CALC BUN/CREAT (test code = [...] (test code = 2219) 48 U/L Cosmo [id number] 00:00:00* Test Item Value Reference Range Interpretation Comme nts TSH, THIRD GENERATION (test code = 2821) 2.380 UIU/ML Cosmo Martin ConroeLIPID [id number] 00:00:00* Test Item Value Reference Range Interpretation Comme nts CHOLESTEROL (test code = 2210) 209 MG/DL TRIGLYCERIDES (test code = 2232) 137 MG/DL HDL CHOLESTEROL (test code = 2220) 49 MG/DL CALC LDL CHOL (test code = 2237) 133 MG/DL RISK RATIO LDL/HDL (test cod e = 2238) 2.71 RATIO Cosmo Martin ConroeCOMPREHENSIVE METABOLIC [id number] 00:00:00* Test Item Value Reference Range Interpretation Comme nts GLUCOSE (test code = 2217) 222 MG/DL BUN (test code = 2208) 10 MG/DL CREATININE (test code = 2214) 0.63 MG/DL eGFR AMER. (test cod e = 06659) 134 ML/MIN/1.73 eGFR NON- AMER. (test code = 44315) 115 ML/MIN/1.73 CALC BUN/CREAT (test code = [...] (test code = 2219) 48 U/L Cosmo [id number] 00:00:00* Test Item Value Reference Range Interpretation Comme nts TSH, THIRD GENERATION (test code = 2821) 2.380 UIU/ML Cosmo Martin AustinLIPID [id number] 00:00:00* Test Item Value Reference Range Interpretation Comme nts CHOLESTEROL (test code = 2210) 209 MG/DL TRIGLYCERIDES (test code = 2232) 137 MG/DL HDL CHOLESTEROL (test code = 2220) 49 MG/DL CALC LDL CHOL (test code = 2237) 133 MG/DL RISK RATIO LDL/HDL (test cod e = 2238) 2.71 RATIO COMPREHENSIVE METABOLIC [id number] 00:00:00* Test Item Value Reference Range Interpretation Comme nts GLUCOSE (test code = 2217) 222 MG/DL BUN (test code = 2208) 10 MG/DL CREATININE (test code = 2214) 0.63 MG/DL eGFR AMER. (test cod e = 67809) 134 ML/MIN/1.73 eGFR NON- AMER. (test code = 59644) 115 ML/MIN/1.73 CALC BUN/CREAT (test code = [...] ALT (test code = 2219) 48 U/L [id number] 00:00:00* Test Item Value Reference Range Interpretation Comme nts TSH, THIRD GENERATION (test code = 2821) 2.380 UIU/ML LIPID [id number] 00:00:00* Test Item Value Reference Range Interpretation Comme nts CHOLESTEROL (test code = 2210) 209 MG/DL TRIGLYCERIDES (test code = 2232) 137 MG/DL HDL CHOLESTEROL (test code = 2220) 49 MG/DL CALC LDL CHOL (test code = 2237) 133 MG/DL RISK RATIO LDL/HDL (test cod e = 2238) 2.71 RATIO COMPREHENSIVE METABOLIC [id number] 00:00:00* Test Item Value Reference Range Interpretation Comme nts GLUCOSE (test code = 2217) 222 MG/DL BUN (test code = 8) 10 MG/DL CREATININE (test code = 2214) 0.63 MG/DL eGFR AMER. (test cod e = 73516) 134 ML/MIN/1.73 eGFR NON- AMER. (test code = 52328) 115 ML/MIN/1.73 CALC BUN/CREAT (test code = [...] ALT (test code = 2219) 48 U/L [id number] 00:00:00* Test Item Value Reference Range Interpretation Comme nts TSH, THIRD GENERATION (test code = 2821) 2.380 UIU/ML HEMOGLOBIN [id number] 00:00:00* Test Item Value Reference Range Interpretation Comme nts HEMOGLOBIN A1c (test code = 53304) 9.9 % Cosmo Martin AustinHEMOGLOBIN [id number] 00:00:00* Test Item Value Reference Range Interpretation Comme nts HEMOGLOBIN A1c (test code = 80361) 9.9 % Cosmo Martin AustinHEMOGLOBIN [id number] 00:00:00* Test Item Value Reference Range Interpretation Comme nts HEMOGLOBIN A1c (test code = 79887) 9.9 % Cosmo Martin AustinHEMOGLOBIN [id number] 00:00:00* Test Item Value Reference Range Interpretation Comme nts HEMOGLOBIN A1c (test code = 94129) 9.9 % HEMOGLOBIN [id number] 00:00:00* Test Item Value Reference Range Interpretation Comme nts HEMOGLOBIN A1c (test code = 07660) 9.9 % Cosmo Martin AustinHEMOGLOBIN [id number] 00:00:00* Test Item Value Reference Range Interpretation Comme nts HEMOGLOBIN A1c (test code = 12161) 9.9 % HEMOGLOBIN [id number] 00:00:00* Test Item Value Reference Range Interpretation Comme nts HEMOGLOBIN A1c (test code = 64165) 9.5 % Cosmo Martin AustinHEMOGLOBIN [id number] 00:00:00* Test Item Value Reference Range Interpretation Comme nts HEMOGLOBIN A1c (test code = 86807) 9.5 % Cosmo Martin AustinHEMOGLOBIN [id number] 00:00:00* Test Item Value Reference Range Interpretation Comme nts HEMOGLOBIN A1c (test code = 02219) 9.5 % Cosmo Martin AustinHEMOGLOBIN [id number] 00:00:00* Test Item Value Reference Range Interpretation Comme nts HEMOGLOBIN A1c (test code = 27674) 9.5 % Cosmo Martin AustinHEMOGLOBIN [id number] 00:00:00* Test Item Value Reference Range Interpretation Comme nts HEMOGLOBIN A1c (test code = 40570) 9.5 % HEMOGLOBIN [id number] 00:00:00* Test Item Value Reference Range Interpretation Comme nts HEMOGLOBIN A1c (test code = 85844) 9.5 % LIPID [id number] 00:00:00* Test Item Value Reference Range Interpretation Comme nts CHOLESTEROL (test code = 2210) 195 MG/DL TRIGLYCERIDES (test code = 2232) 188 MG/DL HDL CHOLESTEROL (test code = 2220) 47 MG/DL CALC LDL CHOL (test code = 2237) 110 MG/DL RISK RATIO LDL/HDL (test cod e = 2238) 2.35 RATIO Cosmo [id number] 00:00:00* Test Item Value Reference Range Interpretation Comme parisa TSH (test code = 2821) 2.920 UIU/ML Cosmo NievesCOMPREHENSIVE METABOLIC [id number] 00:00:00* Test Item Value Reference Range Interpretation Comme nts GLUCOSE (test code = 2217) 233 MG/DL BUN (test code = 2208) 11 MG/DL CREATININE (test code = 2214) 0.59 MG/DL eGFR AMER. (test cod e = 64125) 137 ML/MIN/1.73 eGFR NON- AMER. (test code = 83101) 118 ML/MIN/1.73 CALC BUN/CREAT (test code = [...] (test code = 2219) 49 U/L Cosmo Martin AustinLIPID [id number] 00:00:00* Test Item Value Reference Range Interpretation Comme nts CHOLESTEROL (test code = 2210) 195 MG/DL TRIGLYCERIDES (test code = 2232) 188 MG/DL HDL CHOLESTEROL (test code = 2220) 47 MG/DL CALC LDL CHOL (test code = 2237) 110 MG/DL RISK RATIO LDL/HDL (test cod e = 2238) 2.35 RATIO Cosmo [id number] 00:00:00* Test Item Value Reference Range Interpretation Comme nts TSH (test code = 2821) 2.920 UIU/ML Cosmo NievesCOMPREHENSIVE METABOLIC [id number] 00:00:00* Test Item Value Reference Range Interpretation Comme nts GLUCOSE (test code = 2217) 233 MG/DL BUN (test code = 2208) 11 MG/DL CREATININE (test code = 2214) 0.59 MG/DL eGFR AMER. (test cod e = 92577) 137 ML/MIN/1.73 eGFR NON- AMER. (test code = 67655) 118 ML/MIN/1.73 CALC BUN/CREAT (test code = [...] (test code = 2219) 49 U/L Cosmo Martin AustinLIPID [id number] 00:00:00* Test Item Value Reference Range Interpretation Comme nts CHOLESTEROL (test code = 2210) 195 MG/DL TRIGLYCERIDES (test code = 2232) 188 MG/DL HDL CHOLESTEROL (test code = 2220) 47 MG/DL CALC LDL CHOL (test code = 2237) 110 MG/DL RISK RATIO LDL/HDL (test cod e = 2238) 2.35 RATIO Cosmo [id number] 00:00:00* Test Item Value Reference Range Interpretation Comme nts TSH (test code = 2821) 2.920 UIU/ML Cosmo Martin AustinCOMPREHENSIVE METABOLIC [id number] 00:00:00* Test Item Value Reference Range Interpretation Comme nts GLUCOSE (test code = 2217) 233 MG/DL BUN (test code = 2208) 11 MG/DL CREATININE (test code = 2214) 0.59 MG/DL eGFR AMER. (test cod e = 35670) 137 ML/MIN/1.73 eGFR NON- AMER. (test code = 76696) 118 ML/MIN/1.73 CALC BUN/CREAT (test code = [...] (test code = 2219) 49 U/L Cosmo Martin AustinLIPID [id number] 00:00:00* Test Item Value Reference Range Interpretation Comme nts CHOLESTEROL (test code = 2210) 195 MG/DL TRIGLYCERIDES (test code = 2232) 188 MG/DL HDL CHOLESTEROL (test code = 2220) 47 MG/DL CALC LDL CHOL (test code = 2237) 110 MG/DL RISK RATIO LDL/HDL (test cod e = 2238) 2.35 RATIO Cosmo Martin AustinCOMPREHENSIVE METABOLIC [id number] 00:00:00* Test Item Value Reference Range Interpretation Comme nts GLUCOSE (test code = 2217) 233 MG/DL BUN (test code = 2208) 11 MG/DL CREATININE (test code = 2214) 0.59 MG/DL eGFR AMER. (test cod e = 05655) 137 ML/MIN/1.73 eGFR NON- AMER. (test code = 88069) 118 ML/MIN/1.73 CALC BUN/CREAT (test code = [...] ALT (test code = 2219) 49 U/L [id number] 00:00:00* Test Item Value Reference Range Interpretation Comme nts TSH (test code = 2821) 2.920 UIU/ML Cosmo F AustinLIPID [id number] 00:00:00* Test Item Value Reference Range Interpretation Comme nts CHOLESTEROL (test code = 2210) 195 MG/DL TRIGLYCERIDES (test code = 2232) 188 MG/DL HDL CHOLESTEROL (test code = 2220) 47 MG/DL CALC LDL CHOL (test code = 2237) 110 MG/DL RISK RATIO LDL/HDL (test cod e = 2238) 2.35 RATIO COMPREHENSIVE METABOLIC [id number] 00:00:00* Test Item Value Reference Range Interpretation Comme nts GLUCOSE (test code = 2217) 233 MG/DL BUN (test code = 2208) 11 MG/DL CREATININE (test code = 2214) 0.59 MG/DL eGFR AMER. (test cod e = 63453) 137 ML/MIN/1.73 eGFR NON- AMER. (test code = 88692) 118 ML/MIN/1.73 CALC BUN/CREAT (test code = [...] (test code = 2219) 49 U/L Cosmo [id number] 00:00:00* Test Item Value Reference Range Interpretation Comme nts TSH (test code = 2821) 2.920 UIU/ML COMPREHENSIVE METABOLIC [id number] 00:00:00* Test Item Value Reference Range Interpretation Comme nts GLUCOSE (test code = 2217) 233 MG/DL BUN (test code = 2208) 11 MG/DL CREATININE (test code = 2214) 0.59 MG/DL eGFR AMER. (test cod e = 27780) 137 ML/MIN/1.73 eGFR NON- AMER. (test code = 02919) 118 ML/MIN/1.73 CALC BUN/CREAT (test code = [...] (test code = 2219) 49 U/L LIPID [id number] 00:00:00* Test Item Value Reference Range Interpretation Comme nts CHOLESTEROL (test code = 2210) 195 MG/DL TRIGLYCERIDES (test code = 2232) 188 MG/DL HDL CHOLESTEROL (test code = 2220) 47 MG/DL CALC LDL CHOL (test code = 2237) 110 MG/DL RISK RATIO LDL/HDL (test cod e = 2238) 2.35 RATIO [id number] 00:00:00* Test Item Value Reference Range Interpretation Comme nts TSH (test code = 2821) 2.920 UIU/ML CBC W/AUTO [id number] 00:00:00* Test Item Value Reference Range Interpretation [...] 1015) 259 K/UL Cosmo Veronica EzequielCBC W/AUTO [id number] 00:00:00* Test Item Value Reference Range Interpretation [...] code = 1015) 259 K/UL Cosmo Martin [facility] W/AUTO [id number] 00:00:00* Test Item Value Reference Range Interpretation [...] code = 1015) 259 K/UL Cosmo Martin [facility] W/AUTO [id number] 00:00:00* Test Item Value Reference Range Interpretation [...] = 1015) 259 K/UL Cosmo NievesCBC W/AUTO [id number] 00:00:00* Test Item Value Reference Range Interpretation [...] code = 1015) 259 K/UL CBC W/AUTO [id number] 00:00:00* Test Item Value Reference Range Interpretation [...] code = 1015) 259 K/UL COMPREHENSIVE METABOLIC [id number] 00:00:00* Test Item Value Reference Range Interpretation Comme nts GLUCOSE (test code = 2217) 184 MG/DL BUN (test code = 2208) 9 MG/DL CREATININE (test code = 2214) 0.74 MG/DL eGFR AMER. (test cod e = 18719) 122 ML/MIN/1.73 eGFR NON- AMER. (test code = 29573) 105 ML/MIN/1.73 CALC BUN/CREAT (test code = [...] = 2219) 53 U/L Cosmo NievesCBC W/AUTO [id number] 00:00:00* Test Item Value Reference Range Interpretation [...] code = 1015) 256 K/UL Cosmo NievesHEMOGLOBIN [id number] 00:00:00* Test Item Value Reference Range Interpretation Comme [facility] HEMOGLOBIN A1c (test code = 30592) 6.5 % Cosmo [id number] 00:00:00* Test Item Value Reference Range Interpretation Comme nts TSH (test code = 2821) 1.820 UIU/ML Cosmo NievesCOMPREHENSIVE METABOLIC [id number] 00:00:00* Test Item Value Reference Range Interpretation Comme nts GLUCOSE (test code = 2217) 184 MG/DL BUN (test code = 2208) 9 MG/DL CREATININE (test code = 2214) 0.74 MG/DL eGFR AMER. (test cod e = 09049) 122 ML/MIN/1.73 eGFR NON- AMER. (test code = 76774) 105 ML/MIN/1.73 CALC BUN/CREAT (test code = [...] = 2219) 53 U/L Cosmo NievesCBC W/AUTO [id number] 00:00:00* Test Item Value Reference Range Interpretation [...] code = 1015) 256 K/UL Cosmo NievesHEMOGLOBIN [id number] 00:00:00* Test Item Value Reference Range Interpretation Comme parisa HEMOGLOBIN A1c (test code = 90017) 6.5 % Cosmo [id number] 00:00:00* Test Item Value Reference Range Interpretation Comme nts TSH (test code = 2821) 1.820 UIU/ML Cosmo NievesCOMPREHENSIVE METABOLIC [id number] 00:00:00* Test Item Value Reference Range Interpretation Comme nts GLUCOSE (test code = 2217) 184 MG/DL BUN (test code = 2208) 9 MG/DL CREATININE (test code = 2214) 0.74 MG/DL eGFR AMER. (test cod e = 86917) 122 ML/MIN/1.73 eGFR NON- AMER. (test code = 64832) 105 ML/MIN/1.73 CALC BUN/CREAT (test code = [...] = 2219) 53 U/L Cosmo NievesCBC W/AUTO [id number] 00:00:00* Test Item Value Reference Range Interpretation [...] code = 1015) 256 K/UL Cosmo NievesHEMOGLOBIN [id number] 00:00:00* Test Item Value Reference Range Interpretation Comme nts HEMOGLOBIN A1c (test code = 76810) 6.5 % Cosmo [id number] 00:00:00* Test Item Value Reference Range Interpretation Comme nts TSH (test code = 2821) 1.820 UIU/ML Cosmo NievesCOMPREHENSIVE METABOLIC [id number] 00:00:00* Test Item Value Reference Range Interpretation Comme nts GLUCOSE (test code = 2217) 184 MG/DL BUN (test code = 2208) 9 MG/DL CREATININE (test code = 2214) 0.74 MG/DL eGFR AMER. (test cod e = 59925) 122 ML/MIN/1.73 eGFR NON- AMER. (test code = 70211) 105 ML/MIN/1.73 CALC BUN/CREAT (test code = [...] = 2219) 53 U/L Cosmo NievesCBC W/AUTO [id number] 00:00:00* Test Item Value Reference Range Interpretation [...] code = 1015) 256 K/UL Cosmo NievesHEMOGLOBIN [id number] 00:00:00* Test Item Value Reference Range Interpretation Comme nts HEMOGLOBIN A1c (test code = 16198) 6.5 % Cosmo NievesCOMPREHENSIVE METABOLIC [id number] 00:00:00* Test Item Value Reference Range Interpretation Comme nts GLUCOSE (test code = 2217) 184 MG/DL BUN (test code = 2208) 9 MG/DL CREATININE (test code = 2214) 0.74 MG/DL eGFR AMER. (test cod e = 82389) 122 ML/MIN/1.73 eGFR NON- AMER. (test code = 53095) 105 ML/MIN/1.73 CALC BUN/CREAT (test code = [...] ALT (test code = 2219) 53 U/L [id number] 00:00:00* Test Item Value Reference Range Interpretation Comme nts TSH (test code = 2821) 1.820 UIU/ML Cosmo NievesCBC W/AUTO [id number] 00:00:00* Test Item Value Reference Range Interpretation [...] (test code = 1015) 256 K/UL HEMOGLOBIN [id number] 00:00:00* Test Item Value Reference Range Interpretation Comme nts HEMOGLOBIN A1c (test code = 41382) 6.5 % [id number] 00:00:00* Test Item Value Reference Range Interpretation Comme nts TSH (test code = 2821) 1.820 UIU/ML COMPREHENSIVE METABOLIC [id number] 00:00:00* Test Item Value Reference Range Interpretation Comme nts GLUCOSE (test code = 2217) 184 MG/DL BUN (test code = 2208) 9 MG/DL CREATININE (test code = 2214) 0.74 MG/DL eGFR AMER. (test cod e = 21769) 122 ML/MIN/1.73 eGFR NON- AMER. (test code = 80674) 105 ML/MIN/1.73 CALC BUN/CREAT (test code = [...] code = 2219) 53 U/L CBC W/AUTO [id number] 00:00:00* Test Item Value Reference Range Interpretation [...] (test code = 1015) 256 K/UL HEMOGLOBIN [id number] 00:00:00* Test Item Value Reference Range Interpretation Comme nts HEMOGLOBIN A1c (test code = 18180) 6.5 % [id number] 00:00:00* Test Item Value Reference Range Interpretation Comme nts TSH (test code = 2821) 1.820 UIU/ML ACUTE HEPATITIS [id number] 00:00:00* Test Item Value Reference Range Interpretation Comme nts HEPATITIS A IgM (test code = 43054) NON-REACTIVE HEPATITIS B CORE IgM (test c ode = 4644) NON-REACTIVE HEPATITIS B SURF AG (test co de = 2739) NON-REACTIVE HEPATITIS C ANTIBODY (test c ode = 4675) NON-REACTIVE INTERPRETATION HEPATITIS A: (test code = 2552) (NOTE) INTERPRETATION HEPATITIS B: (test code = 55632) (NOTE) INTERPRETATION HEPATITIS C: (test code = 64646) (NOTE) [facility] [id number] 00:00:00* Test Item Value Reference Range Interpretation Comme nts HEPATITIS A IgM (test code = 95504) NON-REACTIVE HEPATITIS B CORE IgM (test c ode = 4644) NON-REACTIVE HEPATITIS B SURF AG (test co de = 2739) NON-REACTIVE HEPATITIS C ANTIBODY (test c ode = 4675) NON-REACTIVE INTERPRETATION HEPATITIS A: (test code = 2552) (NOTE) INTERPRETATION HEPATITIS B: (test code = 07261) (NOTE) INTERPRETATION HEPATITIS C: (test code = 69712) (NOTE) [facility] [id number] 00:00:00* Test Item Value Reference Range Interpretation Comme nts HEPATITIS A IgM (test code = 00596) NON-REACTIVE HEPATITIS B CORE IgM (test c ode = 4644) NON-REACTIVE HEPATITIS B SURF AG (test co de = 2739) NON-REACTIVE HEPATITIS C ANTIBODY (test c ode = 4675) NON-REACTIVE INTERPRETATION HEPATITIS A: (test code = 2552) (NOTE) INTERPRETATION HEPATITIS B: (test code = 89374) (NOTE) INTERPRETATION HEPATITIS C: (test code = 41502) (NOTE) [facility] [id number] 00:00:00* Test Item Value Reference Range Interpretation Comme nts HEPATITIS A IgM (test code = 20290) NON-REACTIVE HEPATITIS B CORE IgM (test c ode = 4644) NON-REACTIVE HEPATITIS B SURF AG (test co de = 2739) NON-REACTIVE HEPATITIS C ANTIBODY (test c ode = 4675) NON-REACTIVE INTERPRETATION HEPATITIS A: (test code = 2552) (NOTE) INTERPRETATION HEPATITIS B: (test code = 57157) (NOTE) INTERPRETATION HEPATITIS C: (test code = 05632) (NOTE) ACUTE HEPATITIS [id number] 00:00:00* Test Item Value Reference Range Interpretation Comme nts HEPATITIS A IgM (test code = 13561) NON-REACTIVE HEPATITIS B CORE IgM (test c ode = 4644) NON-REACTIVE HEPATITIS B SURF AG (test co de = 2739) NON-REACTIVE HEPATITIS C ANTIBODY (test c ode = 4675) NON-REACTIVE INTERPRETATION HEPATITIS A: (test code = 2552) (NOTE) INTERPRETATION HEPATITIS B: (test code = 77802) (NOTE) INTERPRETATION HEPATITIS C: (test code = 71673) (NOTE) Cosmo NievesACUTE HEPATITIS [id number] 00:00:00* Test Item Value Reference Range Interpretation Comme nts HEPATITIS A IgM (test code = 10160) NON-REACTIVE HEPATITIS B CORE IgM (test c ode = 4644) NON-REACTIVE HEPATITIS B SURF AG (test co de = 2739) NON-REACTIVE HEPATITIS C ANTIBODY (test c ode = 4675) NON-REACTIVE INTERPRETATION HEPATITIS A: (test code = 2552) (NOTE) INTERPRETATION HEPATITIS B: (test code = 68109) (NOTE) INTERPRETATION HEPATITIS C: (test code = 95811) (NOTE) [id number] 00:00:00* Test Item Value Reference Range Interpretation Comme nts TSH (test code = 2821) 3.4 UIU/ML Cosmo NievesCOMPREHENSIVE METABOLIC [id number] 00:00:00* Test Item Value Reference Range Interpretation Comme nts GLUCOSE (test code = 2217) 146 MG/DL BUN (test code = 2208) 10 MG/DL CREATININE (test code = 2214) 0.77 MG/DL eGFR AMER. (test cod e = 51784) 116 ML/MIN/1.73 eGFR NON- AMER. (test code = 03894) 100 ML/MIN/1.73 CALC BUN/CREAT (test code = [...] code = 2219) 63 U/L Cosmo Martin [id number] 00:00:00* Test Item Value Reference Range Interpretation Comme nts TSH (test code = 2821) 3.4 UIU/ML Cosmo Martin [place]COMPREHENSIVE [place] [id number] 00:00:00* Test Item Value Reference Range Interpretation Comme nts GLUCOSE (test code = 2217) 146 MG/DL BUN (test code = 2208) 10 MG/DL CREATININE (test code = 2214) 0.77 MG/DL eGFR AMER. (test cod e = 90291) 116 ML/MIN/1.73 eGFR NON- AMER. (test code = 72933) 100 ML/MIN/1.73 CALC BUN/CREAT (test code = [...] code = 2219) 63 U/L Cosmo Martin [id number] 00:00:00* Test Item Value Reference Range Interpretation Comme nts TSH (test code = 2821) 3.4 UIU/ML Cosmo Martin ConroeCOMPREHENSIVE METABOLIC [id number] 00:00:00* Test Item Value Reference Range Interpretation Comme nts GLUCOSE (test code = 2217) 146 MG/DL BUN (test code = 2208) 10 MG/DL CREATININE (test code = 2214) 0.77 MG/DL eGFR AMER. (test cod e = 49201) 116 ML/MIN/1.73 eGFR NON- AMER. (test code = 61551) 100 ML/MIN/1.73 CALC BUN/CREAT (test code = [...] (test code = 2219) 63 U/L Cosmo [id number] 00:00:00* Test Item Value Reference Range Interpretation Comme nts TSH (test code = 2821) 3.4 UIU/ML Cosmo NievesCOMPREHENSIVE METABOLIC [id number] 00:00:00* Test Item Value Reference Range Interpretation Comme nts GLUCOSE (test code = 2217) 146 MG/DL BUN (test code = 2208) 10 MG/DL CREATININE (test code = 2214) 0.77 MG/DL eGFR AMER. (test cod e = 32898) 116 ML/MIN/1.73 eGFR NON- AMER. (test code = 20830) 100 ML/MIN/1.73 CALC BUN/CREAT (test code = [...] ALT (test code = 2219) 63 U/L COMPREHENSIVE METABOLIC [id number] 00:00:00* Test Item Value Reference Range Interpretation Comme nts GLUCOSE (test code = 2217) 146 MG/DL BUN (test code = 2208) 10 MG/DL CREATININE (test code = 2214) 0.77 MG/DL eGFR AMER. (test cod e = 15843) 116 ML/MIN/1.73 eGFR NON- AMER. (test code = 65099) 100 ML/MIN/1.73 CALC BUN/CREAT (test code = [...] (test code = 2219) 63 U/L Cosmo [id number] 00:00:00* Test Item Value Reference Range Interpretation Comme nts TSH (test code = 2821) 3.4 UIU/ML COMPREHENSIVE METABOLIC [id number] 00:00:00* Test Item Value Reference Range Interpretation Comme nts GLUCOSE (test code = 2217) 146 MG/DL BUN (test code = 2208) 10 MG/DL CREATININE (test code = 2214) 0.77 MG/DL eGFR AMER. (test cod e = 28987) 116 ML/MIN/1.73 eGFR NON- AMER. (test code = 71371) 100 ML/MIN/1.73 CALC BUN/CREAT (test code = [...] ALT (test code = 2219) 63 U/L [id number] 00:00:00* Test Item Value Reference Range Interpretation Comme nts TSH (test code = 2821) 3.4 UIU/ML HEMOGLOBIN [id number] 00:00:00* Test Item Value Reference Range Interpretation Comme nts HEMOGLOBIN A1c (test code = 35814) 7.9 % Cosmo F AustinHEMOGLOBIN [id number] 00:00:00* Test Item Value Reference Range Interpretation Comme nts HEMOGLOBIN A1c (test code = 34571) 7.9 % Cosmo F AustinHEMOGLOBIN [id number] 00:00:00* Test Item Value Reference Range Interpretation Comme nts HEMOGLOBIN A1c (test code = 88722) 7.9 % Cosmo F AustinHEMOGLOBIN [id number] 00:00:00* Test Item Value Reference Range Interpretation Comme nts HEMOGLOBIN A1c (test code = 49948) 7.9 % Cosmo F AustinHEMOGLOBIN [id number] 00:00:00* Test Item Value Reference Range Interpretation Comme nts HEMOGLOBIN A1c (test code = 45630) 7.9 % HEMOGLOBIN [id number] 00:00:00* Test Item Value Reference Range Interpretation Comme nts HEMOGLOBIN A1c (test code = 54432) 7.9 % LIPID [id number] 00:00:00* Test Item Value Reference Range Interpretation Comme nts CHOLESTEROL (test code = 2210) 171 MG/DL TRIGLYCERIDES (test code = 2232) 137 MG/DL HDL CHOLESTEROL (test code = 2220) 53 MG/DL CALC LDL CHOL (test code = 2237) 91 MG/DL RISK RATIO LDL/HDL (test cod e = 2238) 1.71 RATIO Cosmo [id number] 00:00:00* Test Item Value Reference Range Interpretation Comme nts TSH (test code = 2821) 5.7 UIU/ML Cosmo NievesCOMPREHENSIVE METABOLIC [id number] 00:00:00* Test Item Value Reference Range Interpretation Comme nts GLUCOSE (test code = 2217) 156 MG/DL BUN (test code = 2208) 10 MG/DL CREATININE (test code = 2214) 0.80 MG/DL eGFR AMER. (test cod e = 83989) 111 ML/MIN/1.73 eGFR NON- AMER. (test code = 74505) 96 ML/MIN/1.73 CALC BUN/CREAT (test code = [...] code = 2219) 60 U/L Cosmo NievesLIPID [id number] 00:00:00* Test Item Value Reference Range Interpretation Comme nts CHOLESTEROL (test code = 2210) 171 MG/DL TRIGLYCERIDES (test code = 2232) 137 MG/DL HDL CHOLESTEROL (test code = 2220) 53 MG/DL CALC LDL CHOL (test code = 2237) 91 MG/DL RISK RATIO LDL/HDL (test cod e = 2238) 1.71 RATIO Cosmo [id number] 00:00:00* Test Item Value Reference Range Interpretation Comme nts TSH (test code = 2821) 5.7 UIU/ML Cosmo NievesCOMPREHENSIVE METABOLIC [id number] 00:00:00* Test Item Value Reference Range Interpretation Comme nts GLUCOSE (test code = 2217) 156 MG/DL BUN (test code = 2208) 10 MG/DL CREATININE (test code = 2214) 0.80 MG/DL eGFR AMER. (test cod e = 53930) 111 ML/MIN/1.73 eGFR NON- AMER. (test code = 66509) 96 ML/MIN/1.73 CALC BUN/CREAT (test code = [...] code = 2219) 60 U/L Cosmo NievesLIPID [id number] 00:00:00* Test Item Value Reference Range Interpretation Comme nts CHOLESTEROL (test code = 2210) 171 MG/DL TRIGLYCERIDES (test code = 2232) 137 MG/DL HDL CHOLESTEROL (test code = 2220) 53 MG/DL CALC LDL CHOL (test code = 2237) 91 MG/DL RISK RATIO LDL/HDL (test cod e = 2238) 1.71 RATIO Cosmo [id number] 00:00:00* Test Item Value Reference Range Interpretation Comme nts TSH (test code = 2821) 5.7 UIU/ML Cosmo NievesCOMPREHENSIVE METABOLIC [id number] 00:00:00* Test Item Value Reference Range Interpretation Comme nts GLUCOSE (test code = 2217) 156 MG/DL BUN (test code = 2208) 10 MG/DL CREATININE (test code = 2214) 0.80 MG/DL eGFR AMER. (test cod e = 25812) 111 ML/MIN/1.73 eGFR NON- AMER. (test code = 01387) 96 ML/MIN/1.73 CALC BUN/CREAT (test code = [...] (test code = 2219) 60 U/L Cosmo Martin AustinLIPID [id number] 00:00:00* Test Item Value Reference Range Interpretation Comme nts CHOLESTEROL (test code = 2210) 171 MG/DL TRIGLYCERIDES (test code = 2232) 137 MG/DL HDL CHOLESTEROL (test code = 2220) 53 MG/DL CALC LDL CHOL (test code = 2237) 91 MG/DL RISK RATIO LDL/HDL (test cod e = 2238) 1.71 RATIO Cosmo NievesCOMPREHENSIVE METABOLIC [id number] 00:00:00* Test Item Value Reference Range Interpretation Comme nts GLUCOSE (test code = 2217) 156 MG/DL BUN (test code = 2208) 10 MG/DL CREATININE (test code = 2214) 0.80 MG/DL eGFR AMER. (test cod e = 69897) 111 ML/MIN/1.73 eGFR NON- AMER. (test code = 78256) 96 ML/MIN/1.73 CALC BUN/CREAT (test code = [...] ALT (test code = 2219) 60 U/L [id number] 00:00:00* Test Item Value Reference Range Interpretation Comme nts TSH (test code = 2821) 5.7 UIU/ML Cosmo F AustinLIPID [id number] 00:00:00* Test Item Value Reference Range Interpretation Comme nts CHOLESTEROL (test code = 2210) 171 MG/DL TRIGLYCERIDES (test code = 2232) 137 MG/DL HDL CHOLESTEROL (test code = 2220) 53 MG/DL CALC LDL CHOL (test code = 2237) 91 MG/DL RISK RATIO LDL/HDL (test cod e = 2238) 1.71 RATIO COMPREHENSIVE METABOLIC [id number] 00:00:00* Test Item Value Reference Range Interpretation Comme nts GLUCOSE (test code = 2217) 156 MG/DL BUN (test code = 2208) 10 MG/DL CREATININE (test code = 2214) 0.80 MG/DL eGFR AMER. (test cod e = 44209) 111 ML/MIN/1.73 eGFR NON- AMER. (test code = 12018) 96 ML/MIN/1.73 CALC BUN/CREAT (test code = [...] (test code = 2219) 60 U/L Cosmo Martin [id number] 00:00:00* Test Item Value Reference Range Interpretation Comme nts TSH (test code = 2821) 5.7 UIU/ML COMPREHENSIVE METABOLIC [id number] 00:00:00* Test Item Value Reference Range Interpretation Comme nts GLUCOSE (test code = 2217) 156 MG/DL BUN (test code = 2208) 10 MG/DL CREATININE (test code = 2214) 0.80 MG/DL eGFR AMER. (test cod e = 85305) 111 ML/MIN/1.73 eGFR NON- AMER. (test code = 61612) 96 ML/MIN/1.73 CALC BUN/CREAT (test code = [...] (test code = 2219) 60 U/L LIPID [id number] 00:00:00* Test Item Value Reference Range Interpretation Comme nts CHOLESTEROL (test code = 2210) 171 MG/DL TRIGLYCERIDES (test code = 2232) 137 MG/DL HDL CHOLESTEROL (test code = 2220) 53 MG/DL CALC LDL CHOL (test code = 2237) 91 MG/DL RISK RATIO LDL/HDL (test cod e = 2238) 1.71 RATIO [id number] 00:00:00* Test Item Value Reference Range Interpretation Comme nts TSH (test code = 2821) 5.7 UIU/ML CBC W/AUTO [id number] 00:00:00* Test Item Value Reference Range Interpretation [...] = 1015) 250 K/UL Cosmo Martin AustinHEMOGLOBIN [id number] 00:00:00* Test Item Value Reference Range Interpretation Comme nts HEMOGLOBIN A1c (test code = 92496) 7.1 % Cosmo Veronica EzequielCBC W/AUTO [id number] 00:00:00* Test Item Value Reference Range Interpretation [...] = 1015) 250 K/UL Cosmo Martin AustinHEMOGLOBIN [id number] 00:00:00* Test Item Value Reference Range Interpretation Comme nts HEMOGLOBIN A1c (test code = 91621) 7.1 % Cosmo Martin AustinCBC W/AUTO [id number] 00:00:00* Test Item Value Reference Range Interpretation [...] = 1015) 250 K/UL Cosmo Martin AustinHEMOGLOBIN [id number] 00:00:00* Test Item Value Reference Range Interpretation Comme nts HEMOGLOBIN A1c (test code = 56530) 7.1 % Cosmo Martin AustinCBC W/AUTO [id number] 00:00:00* Test Item Value Reference Range Interpretation [...] code = 1015) 250 K/UL Cosmo NievesHEMOGLOBIN [id number] 00:00:00* Test Item Value Reference Range Interpretation Comme nts HEMOGLOBIN A1c (test code = 49930) 7.1 % Cosmo Martin AustinCBC W/AUTO [id number] 00:00:00* Test Item Value Reference Range Interpretation [...] (test code = 1015) 250 K/UL HEMOGLOBIN [id number] 00:00:00* Test Item Value Reference Range Interpretation Comme nts HEMOGLOBIN A1c (test code = 56800) 7.1 % CBC W/AUTO [id number] 00:00:00* Test Item Value Reference Range Interpretation [...] (test code = 1015) 250 K/UL HEMOGLOBIN [id number] 00:00:00* Test Item Value Reference Range Interpretation Comme nts HEMOGLOBIN A1c (test code = 30486) 7.1 % ACUTE HEPATITIS [id number] 00:00:00* Test Item Value Reference Range Interpretation Comme nts HEPATITIS A IgM (test code = 80050) NON-REACTIVE HEPATITIS B CORE IgM (test c ode = 4644) NON-REACTIVE HEPATITIS B SURF AG (test co de = 2739) NON-REACTIVE HEPATITIS C ANTIBODY (test c ode = 4675) NON-REACTIVE INTERPRETATION HEPATITIS A: (test code = 2552) (NOTE) INTERPRETATION HEPATITIS B: (test code = 18416) (NOTE) INTERPRETATION HEPATITIS C: (test code = 92360) (NOTE) Cosmo NievesACUTE HEPATITIS [id number] 00:00:00* Test Item Value Reference Range Interpretation Comme nts HEPATITIS A IgM (test code = 81055) NON-REACTIVE HEPATITIS B CORE IgM (test c ode = 4644) NON-REACTIVE HEPATITIS B SURF AG (test co de = 2739) NON-REACTIVE HEPATITIS C ANTIBODY (test c ode = 4675) NON-REACTIVE INTERPRETATION HEPATITIS A: (test code = 2552) (NOTE) INTERPRETATION HEPATITIS B: (test code = 12787) (NOTE) INTERPRETATION HEPATITIS C: (test code = 49969) (NOTE) Cosmo NievesACUTE HEPATITIS [id number] 00:00:00* Test Item Value Reference Range Interpretation Comme nts HEPATITIS A IgM (test code = 36508) NON-REACTIVE HEPATITIS B CORE IgM (test c ode = 4644) NON-REACTIVE HEPATITIS B SURF AG (test co de = 2739) NON-REACTIVE HEPATITIS C ANTIBODY (test c ode = 4675) NON-REACTIVE INTERPRETATION HEPATITIS A: (test code = 2552) (NOTE) INTERPRETATION HEPATITIS B: (test code = 29775) (NOTE) INTERPRETATION HEPATITIS C: (test code = 02471) (NOTE) Cosmo NievesACUTE HEPATITIS [id number] 00:00:00* Test Item Value Reference Range Interpretation Comme nts HEPATITIS A IgM (test code = 07236) NON-REACTIVE HEPATITIS B CORE IgM (test c ode = 4644) NON-REACTIVE HEPATITIS B SURF AG (test co de = 2739) NON-REACTIVE HEPATITIS C ANTIBODY (test c ode = 4675) NON-REACTIVE INTERPRETATION HEPATITIS A: (test code = 2552) (NOTE) INTERPRETATION HEPATITIS B: (test code = 87422) (NOTE) INTERPRETATION HEPATITIS C: (test code = 95161) (NOTE) ACUTE HEPATITIS [id number] 00:00:00* Test Item Value Reference Range Interpretation Comme nts HEPATITIS A IgM (test code = 23481) NON-REACTIVE HEPATITIS B CORE IgM (test c ode = 4644) NON-REACTIVE HEPATITIS B SURF AG (test co de = 2739) NON-REACTIVE HEPATITIS C ANTIBODY (test c ode = 4675) NON-REACTIVE INTERPRETATION HEPATITIS A: (test code = 2552) (NOTE) INTERPRETATION HEPATITIS B: (test code = 68713) (NOTE) INTERPRETATION HEPATITIS C: (test code = 76542) (NOTE) Cosmo NievesACUTE HEPATITIS [id number] 00:00:00* Test Item Value Reference Range Interpretation Comme nts HEPATITIS A IgM (test code = 23046) NON-REACTIVE HEPATITIS B CORE IgM (test c ode = 4644) NON-REACTIVE HEPATITIS B SURF AG (test co de = 2739) NON-REACTIVE HEPATITIS C ANTIBODY (test c ode = 4675) NON-REACTIVE INTERPRETATION HEPATITIS A: (test code = 2552) (NOTE) INTERPRETATION HEPATITIS B: (test code = 18278) (NOTE) INTERPRETATION HEPATITIS C: (test code = 41617) (NOTE) LIPID [id number] 00:00:00* Test Item Value Reference Range Interpretation Comme nts CHOLESTEROL (test code = 2210) 212 MG/DL TRIGLYCERIDES (test code = 2232) 120 MG/DL HDL CHOLESTEROL (test code = 2220) 48 MG/DL CALC LDL CHOL (test code = 2237) 140 MG/DL RISK RATIO LDL/HDL (test cod e = 2238) 2.92 RATIO Cosmo NievesCOMPREHENSIVE METABOLIC [id number] 00:00:00* Test Item Value Reference Range Interpretation Comme nts GLUCOSE (test code = 2217) 175 MG/DL BUN (test code = 2208) 7 MG/DL CREATININE (test code = 2214) 0.76 MG/DL eGFR AMER. (test cod e = 07498) 119 ML/MIN/1.73 eGFR NON- AMER. (test code = 87971) 102 ML/MIN/1.73 CALC BUN/CREAT (test code = [...] code = 2219) 42 U/L Cosmo NievesLIPID [id number] 00:00:00* Test Item Value Reference Range Interpretation Comme nts CHOLESTEROL (test code = 2210) 212 MG/DL TRIGLYCERIDES (test code = 2232) 120 MG/DL HDL CHOLESTEROL (test code = 2220) 48 MG/DL CALC LDL CHOL (test code = 2237) 140 MG/DL RISK RATIO LDL/HDL (test cod e = 2238) 2.92 RATIO Cosmo NievesCOMPREHENSIVE METABOLIC [id number] 00:00:00* Test Item Value Reference Range Interpretation Comme nts GLUCOSE (test code = 2217) 175 MG/DL BUN (test code = 2208) 7 MG/DL CREATININE (test code = 2214) 0.76 MG/DL eGFR AMER. (test cod e = 72147) 119 ML/MIN/1.73 eGFR NON- AMER. (test code = 81671) 102 ML/MIN/1.73 CALC BUN/CREAT (test code = [...] (test code = 2219) 42 U/L Cosmo Veronica EzequielLIPID [id number] 00:00:00* Test Item Value Reference Range Interpretation Comme nts CHOLESTEROL (test code = 2210) 212 MG/DL TRIGLYCERIDES (test code = 2232) 120 MG/DL HDL CHOLESTEROL (test code = 2220) 48 MG/DL CALC LDL CHOL (test code = 2237) 140 MG/DL RISK RATIO LDL/HDL (test cod e = 2238) 2.92 RATIO Cosmo Martin EzequielCOMPREHENSIVE METABOLIC [id number] 00:00:00* Test Item Value Reference Range Interpretation Comme nts GLUCOSE (test code = 2217) 175 MG/DL BUN (test code = 2208) 7 MG/DL CREATININE (test code = 2214) 0.76 MG/DL eGFR AMER. (test cod e = 78461) 119 ML/MIN/1.73 eGFR NON- AMER. (test code = 58287) 102 ML/MIN/1.73 CALC BUN/CREAT (test code = [...] code = 2219) 42 U/L Cosmo NievesLIPID [id number] 00:00:00* Test Item Value Reference Range Interpretation Comme nts CHOLESTEROL (test code = 2210) 212 MG/DL TRIGLYCERIDES (test code = 2232) 120 MG/DL HDL CHOLESTEROL (test code = 2220) 48 MG/DL CALC LDL CHOL (test code = 2237) 140 MG/DL RISK RATIO LDL/HDL (test cod e = 2238) 2.92 RATIO Cosmo NievesCOMPREHENSIVE METABOLIC [id number] 00:00:00* Test Item Value Reference Range Interpretation Comme nts GLUCOSE (test code = 2217) 175 MG/DL BUN (test code = 2208) 7 MG/DL CREATININE (test code = 2214) 0.76 MG/DL eGFR AMER. (test cod e = 04303) 119 ML/MIN/1.73 eGFR NON- AMER. (test code = 66182) 102 ML/MIN/1.73 CALC BUN/CREAT (test code = [...] (test code = 2219) 42 U/L LIPID [id number] 00:00:00* Test Item Value Reference Range Interpretation Comme nts CHOLESTEROL (test code = 2210) 212 MG/DL TRIGLYCERIDES (test code = 2232) 120 MG/DL HDL CHOLESTEROL (test code = 2220) 48 MG/DL CALC LDL CHOL (test code = 2237) 140 MG/DL RISK RATIO LDL/HDL (test cod e = 2238) 2.92 RATIO COMPREHENSIVE METABOLIC [id number] 00:00:00* Test Item Value Reference Range Interpretation Comme nts GLUCOSE (test code = 2217) 175 MG/DL BUN (test code = 2208) 7 MG/DL CREATININE (test code = 2214) 0.76 MG/DL eGFR AMER. (test cod e = 60288) 119 ML/MIN/1.73 eGFR NON- AMER. (test code = 14819) 102 ML/MIN/1.73 CALC BUN/CREAT (test code = [...] (test code = 2219) 42 U/L Cosmo F AustinCOMPREHENSIVE METABOLIC [id number] 00:00:00* Test Item Value Reference Range Interpretation Comme nts GLUCOSE (test code = 2217) 175 MG/DL BUN (test code = 2208) 7 MG/DL CREATININE (test code = 2214) 0.76 MG/DL eGFR AMER. (test cod e = 96549) 119 ML/MIN/1.73 eGFR NON- AMER. (test code = 90448) 102 ML/MIN/1.73 CALC BUN/CREAT (test code = [...] (test code = 2219) 42 U/L LIPID [id number] 00:00:00* Test Item Value Reference Range Interpretation Comme nts CHOLESTEROL (test code = 2210) 212 MG/DL TRIGLYCERIDES (test code = 2232) 120 MG/DL HDL CHOLESTEROL (test code = 2220) 48 MG/DL CALC LDL CHOL (test code = 2237) 140 MG/DL RISK RATIO LDL/HDL (test cod e = 2238) 2.92 RATIO [id number] 00:00:00* Test Item Value Reference Range Interpretation Comme nts TSH (test code = 2821) 4.7 UIU/ML Cosmo F [id number] 00:00:00* Test Item Value Reference Range Interpretation Comme nts TSH (test code = 2821) 4.7 UIU/ML Cosmo F [id number] 00:00:00* Test Item Value Reference Range Interpretation Comme nts TSH (test code = 2821) 4.7 UIU/ML Cosmo F [id number] 00:00:00* Test Item Value Reference Range Interpretation Comme nts TSH (test code = 2821) 4.7 UIU/ML Cosmo F [id number] 00:00:00* Test Item Value Reference Range Interpretation Comme nts TSH (test code = 2821) 4.7 UIU/ML [id number] 00:00:00* Test Item Value Reference Range Interpretation Comme nts TSH (test code = 2821) 4.7 UIU/ML CBC W/AUTO [id number] 00:00:00* Test Item Value Reference Range Interpretation [...] = 1015) 255 K/UL Cosmo Martin AustinHEMOGLOBIN [id number] 00:00:00* Test Item Value Reference Range Interpretation Comme nts HEMOGLOBIN A1c (test code = 67031) 7.9 % Cosmo Martin AustinCBC W/AUTO [id number] 00:00:00* Test Item Value Reference Range Interpretation [...] = 1015) 255 K/UL Cosmo Martin AustinHEMOGLOBIN [id number] 00:00:00* Test Item Value Reference Range Interpretation Comme nts HEMOGLOBIN A1c (test code = 98311) 7.9 % Cosmo Martin AustinCBC W/AUTO [id number] 00:00:00* Test Item Value Reference Range Interpretation [...] = 1015) 255 K/UL Cosmo Martin AustinHEMOGLOBIN [id number] 00:00:00* Test Item Value Reference Range Interpretation Comme nts HEMOGLOBIN A1c (test code = 91984) 7.9 % Cosmo Martin AustinCBC W/AUTO [id number] 00:00:00* Test Item Value Reference Range Interpretation [...] = 1015) 255 K/UL Cosmo Martin AustinHEMOGLOBIN [id number] 00:00:00* Test Item Value Reference Range Interpretation Comme nts HEMOGLOBIN A1c (test code = 32142) 7.9 % Cosmo Martin AustinCBC W/AUTO [id number] 00:00:00* Test Item Value Reference Range Interpretation [...] (test code = 1015) 255 K/UL HEMOGLOBIN [id number] 00:00:00* Test Item Value Reference Range Interpretation Comme nts HEMOGLOBIN A1c (test code = 16583) 7.9 % CBC W/AUTO [id number] 00:00:00* Test Item Value Reference Range Interpretation [...] (test code = 1015) 255 K/UL HEMOGLOBIN [id number] 00:00:00* Test Item Value Reference Range Interpretation Comme nts HEMOGLOBIN A1c (test code = 89204) 7.9 % Notes Date/Time Note Provider Source [facility]2024-12-24 00:00:00 [facility]2024-12-18 00:00:00 [facility]2024-06-27 00:00:00 [facility]"
[2024-11-16] MEDS ORDERED: LORazepam 2 MG/ML VIAL ONE (21:40)
[2024-11-16] MEDS ORDERED: FAMOTIDINE 20 MG/2 ML VIAL IV ONE (21:41)
[2024-11-16] MEDS ORDERED: METOCLOPRAMIDE 10 MG/2mL INJ ONE (21:41)
[2024-11-16] MEDS ORDERED: NA CHLORIDE 0.9% 1,000 ML ONE ×2 (21:42→22:52)
[2024-11-16 22:02] LABS: Absolute Basophils 0.1 K/uL (0-0.5); Absolute Eosinophils 0.1 K/uL (0-0.5); Absolute Lymphocytes (CBC) 1.3 K/uL (0.7-4.9); Absolute Monocytes 0.4 K/uL (0.1-1.3); Absolute Neutrophil 9.7 K/uL (1.8-8.0); Basophils % 0.6 % (0-1.3); Eosinophils % 0.6 % (0-4.4); Hematocrit 39.3 % (36.0-45.0); Lymphocytes % 11.3 % (15.3-44.8); MCH 25.5 pg (27.0-35.0); MCHC 33.1 g/dL (32.0-36.0); MCV 77.3 fL (80-100); MPV 10.3 fL (7.6-11.3); Neutrophils % 84.5 % (41.7-73.7); Platelets 274 thou/uL (152-406); RBC Red Blood Cell Count 5.09 M/uL (3.86-4.86); Red Cell Distribution Width 17.2 % (12.1-15.2)
[2024-11-16 22:13] LABS: Albumin 3.5 g/dL (3.4-5.0); Albumin/Globulin Ratio 0.9 (1.1-1.8); Anion Gap 10.7 mEq/L (5.0-15.0); Bilirubin Total 0.8 mg/dL (0.2-1.0); Globulin 4.1 g/dL (2.3-3.5); Magnesium 1.8 mg/dL (1.6-2.4); Potassium 2.7 mEq/L (3.5-5.1); Protein, Total 7.6 g/dL (6.4-8.2)
[2024-11-16] MEDS ORDERED: KCL 20 MEQ/100 mL IVPB 100 ML IV ONE (22:53)
[2024-11-16] MEDS ORDERED: PROMETHAZINE INJ 25 MG/ML AMP ONE (23:16)
[2024-11-17] MEDS ORDERED: POTASSIUM 25 MEQ EFFERV TAB ONE (00:19)
[2024-11-17 00:31] LABS: Sqamous Epithelial <5 /HPF (None Seen); Urine Bacteria None Seen /HPF (<20); Urine Bilirubin NEGATIVE (Negative); Urine Blood Negative (Negative); Urine Clarity Clear (Clear); Urine Color Light-Yellow (Yellow); Urine Culture Reflex Order NOT NEEDED; Urine Glucose 4+ (Negative); Urine Ketones 3+ (Negative); Urine Microscopic Reflex YN ORDER UMIC; Urine Mucus Slight /HPF (None Seen); Urine Nitrite NEGATIVE (Negative); Urine Protein TRACE (Negative); Urine RBC <5 /HPF (None Seen); Urine Urobilinogen Normal (Normal); Urine WBC <5 /HPF (<5)
[2024-11-17 00:48] LABS: Barbiturates NEGATIVE (NEGATIVE); Benzodiazepines NEGATIVE (NEGATIVE); Cocaine NEGATIVE (NEGATIVE); METHAMPHETAM NEGATIVE (NEGATIVE); Methadone NEGATIVE (NEGATIVE); Opiates NEGATIVE (NEGATIVE); Phencyclidine NEGATIVE (NEGATIVE); THC Cannibis POSITIVE (NEGATIVE)
[2024-11-17] MEDS ORDERED: MORPHINE 4 MG/ML SYR ONE (00:54)
[2024-11-17] MEDS ORDERED: PROMETHAZINE INJ 25 MG/ML AMP ONE (00:54)
[2024-11-17] MEDS ORDERED: DICYCLOMINE HCL 20 MG/2 ML AMP IM ONE (00:54)
--- NOTE | 2024-11-17 01:12 | EDPHYS ---
Physician Documentation [facility] Name: Katherine Yepez Age: 44 yrs Sex: Female : 1980 Arrival Date: 11/16/2024 Time: 20:43 Bed 3 Private MD: ED Physician Basilio Rogers HPI: 11/16 21:10 This 44 yrs old Female presents to ER via Ambulatory with complaints of Vomiting, cp gastro issues. 21:10 The patient presents to the emergency department with vomiting, that is continuous. cp 21:10 Onset: The symptoms/episode began/occurred today, about 1300. cp 21:10 Possible causes: flare up of bowel problem, gastroparesis. Associated signs and cp symptoms: Pertinent positives: abdominal pain, anorexia, Pertinent negatives: constipation, diarrhea, fever, GI bleeding. Severity of symptoms: in the emergency department the symptoms are unchanged despite home interventions. 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 - Infectious Disease History:: Denies. - Social history:: Smoking status: Patient reports the use of cigarette tobacco products, smokes one pack cigarettes per day. ROS: 21:15 Eyes: Negative for injury, pain, redness, and discharge, cp 21:15 Constitutional: Positive for poor PO intake, Negative for fever, 21:15 ENT: Negative for drainage from ear(s), ear pain, sore throat, difficulty swallowing, difficulty handling secretions, 21:15 Cardiovascular: Negative for chest pain, edema, palpitations, 21:15 Respiratory: Negative for cough, shortness of breath, wheezing, 21:15 Abdomen/GI: Positive for abdominal pain, nausea and vomiting, anorexia, Negative for diarrhea, constipation, hematemesis, black/tarry stool, rectal bleeding, 21:15 Back: Negative for pain at rest, pain with movement, 21:15 : Negative for urinary symptoms, 21:15 Neuro: Negative for altered mental status, 21:15 All other systems are negative, Exam: 21:20 Constitutional: The patient appears in no acute distress, alert, awake, cp non-diaphoretic, non-toxic, well developed, well nourished, uncomfortable, morbid obesity 21:20 Head/Face: Normocephalic, atraumatic. cp 21:20 Eyes: Periorbital structures: appear normal, Conjunctiva: normal, no exudate, no injection, Sclera: no appreciated abnormality, Lids and lashes: appear normal, bilaterally, 21:20 ENT: External ear(s): are unremarkable, Nose: is normal, Mouth: Lips: moist, Oral mucosa: moist, Posterior pharynx: Airway: no evidence of obstruction, patent, 21:20 Neck: ROM/movement: is normal, is supple, without pain, no range of motions limitations, 21:20 Chest/axilla: Inspection: normal, 21:20 Cardiovascular: Rate: normal, Rhythm: regular, 21:20 Respiratory: the patient does not display signs of respiratory distress, Respirations: normal, no use of accessory muscles, no retractions, labored breathing, is not present, Breath sounds: are clear throughout, no decreased breath sounds, no stridor, no wheezing, 21:20 Abdomen/GI: Inspection: abdomen appears normal, Bowel sounds: active, all quadrants, Palpation: soft, in all quadrants, moderate abdominal tenderness, in the epigastric area, right upper quadrant and left upper quadrant, rebound tenderness, is not appreciated, involuntary guarding, is not appreciated, 21:20 Back: CVA tenderness, is absent, 21:20 Neuro: Orientation: to person, place \T\ time. Mentation: is normal, Motor: moves all fours, strength is normal, Sensation: no obvious gross deficits, 22:07 ECG was reviewed by the Attending Physician. 11/17 01:09 ECG was reviewed by the Attending Physician. Vital Signs: 11/16 21:06 BP 175 / 92; Pulse 84; Resp 20; Temp 98.5(O); Pulse Ox 100% on R/A; Weight 142.88 kg jb4 (R); Height 5 ft. 11 in. (R); 22:03 BP 186 / 99; Pulse 70; Resp 18 S; Pulse Ox 94% on R/A; br2 22:30 BP 182 / 85; Pulse 68; Resp 18; Pulse Ox 100% ; Pain 7/10; br2 23:11 BP 165 / 86; Pulse 71; Resp 18 S; Pulse Ox 100% on R/A; Pain 4/10; br2 23:40 BP 163 / 75; Pulse 64; Resp 16 S; Pulse Ox 98% on R/A; br2 11/17 00:27 BP 164 / 88; Pulse 75; Resp 18; Pulse Ox 99% on R/A; jr13 01:07 BP 152 / 80; Pulse 85; Resp 18 S; Pulse Ox 100% on R/A; br2 01:17 BP 152 / 80; Pulse 71; Resp 18 S; Pulse Ox 99% on R/A; br2 11/16 21:06 Body Mass Index 43.93 (142.88 kg, 180.34 cm) jb4 22:30 Pain Scale: Adult br2 23:11 Pain Scale: Adult br2 MDM: 11/16 21:02 Medical Screening Exam initiated cp 22:00 Differential diagnosis: gastritis, cholecystitis, appendicitis, viral gastroenteritis, cp gastroenteritis, dehydration, electrolyte abnormality. 11/17 01:10 Data reviewed: vital signs, nurses notes, lab test result(s), EKG, and as a result, I cp will discharge patient. 01:10 Consideration of Admission/Observation Escalation of care including cp admission/observation considered. I considered the following discharge prescriptions or medication management in the emergency department Medications were administered in the Emergency Department. See MAR. Independent interpretation of the following test(s) in the Emergency Department EKG: See my EKG interpretation above. Care significantly affected by the following chronic conditions: Diabetes, Obesity. Counseling: I had a detailed discussion with the patient and/or guardian regarding the historical points, exam findings, and any diagnostic results supporting the discharge/admit diagnosis, lab results, radiology results, to return to the emergency department if symptoms worsen or persist or if there are any questions or concerns that arise at home. Response to treatment: the patient's symptoms have markedly improved after treatment, vomiting resolved. nausea and pain markedly improved, and as a result, I will discharge patient. Special discussion: Based on the patient's Hx, exam, and Dx evaluation, there is no indication for emergent surgery or inpatient Tx. It is understood by the patient/guardian that if the Sx's persist or worsen they need to return immediately for re-evaluation. 11/16 21:23 Order name: CBC with Diff; Complete Time: 22:37 cp 11/17 00:28 Interpretation: Normal except: WBC 11.50; RBC 5.09; MCV 77.3; MCH 25.5; RDW 17.2; NOBLE% cp 84.5; LYM% 11.3; MN% 3.0; NEUT A 9.7. 11/16 21:23 Order name: CMP; Complete Time: 22:37 cp 11/17 00:29 Interpretation: Normal except: NA 135; K 2.7; GLUC 266; GFR 78; GLOB 4.1; A/G 0.9. cp 11/16 21:23 Order name: Lipase; Complete Time: 22:37 cp 11/16 21:23 Order name: Test, Urine cp 11/17 00:29 Interpretation: Reviewed. cp 11/16 21:23 Order name: Urinalysis w/ reflexes; Complete Time: 00:48 cp 11/16 21:23 Order name: Magnesium; Complete Time: 22:37 cp 11/16 23:11 Order name: UDS; Complete Time: 00:50 cp 11/17 00:50 Interpretation: Reviewed. cp 11/16 21:23 Order name: EKG; Complete Time: 21:23 cp 11/16 21:23 Order name: IV Saline Lock; Complete Time: 21:55 cp 11/16 21:23 Order name: Labs collected and sent; Complete Time: 21:55 cp 11/16 21:23 Order name: EKG - Nurse/Tech; Complete Time: 22:16 cp 11/17 01:04 Order name: EKG - Nurse/Tech; Complete Time: 01:09 cp EC/03 22:07 Rate is 69 beats/min. Rhythm is regular. WI interval is normal. QRS interval is cp prolonged at 118 msec. QT interval is normal. T waves are Inverted in leads III, aVR. Interpreted by me. Reviewed by me. 11/17 01:09 Rate is 74 beats/min. Rhythm is regular. WI interval is normal. QRS interval is cp prolonged at 110 msec. QT interval is normal. T waves are Inverted in leads III, aVR. Interpreted by me. Reviewed by me. Administered Medications: 11/16 21:55 Drug: metoCLOPramide IVP 10 mg IVP once; over 1 to 2 minutes Route: IVP; Site: right br2 antecubital; 22:30 Follow up: Response: No adverse reaction br2 21:55 Drug: Ativan IVP 1 mg IVP once Route: IVP; Site: right antecubital; br2 22:30 Follow up: Response: No adverse reaction; RASS: Alert and Calm (0) br2 21:56 Drug: Famotidine IVP 20 mg IVP once; dilute with 10 mL 0.9% NaCl; give over 2 minutes br2 Route: IVP; Site: right antecubital; 22:20 Follow up: Response: No adverse reaction; Marked relief of symptoms; Nausea is decreasedha1 21:56 Drug: NS 0.9% IV 1000 ml IV at 1 bolus Per protocol; to be given as a bolus over 60 br2 minutes Route: IV; Rate: 1 bolus; Site: right antecubital; 23:00 Follow up: Response: No adverse reaction; IV Intake: 1000ml br2 23:04 Drug: Potassium Chloride IV 20 mEq IV at calculated rate once; administer over 1-2 ha1 hours Route: IV; Rate: calculated rate; Site: right antecubital; 23:04 Drug: NS 0.9% IV 1000 ml IV at 500 ml/hr once; to be given over 120 minutes. mix with ha1 IV potassium Route: IV; Rate: 500 ml/hr; Site: right antecubital; 11/17 01:08 Follow up: Response: No adverse reaction; IV Status: Infusion continued; IV Intake: br2 1000ml 11/16 23:19 Drug: Promethazine IVP 12.5 mg IVP once Route: IVP; Site: right antecubital; br2 11/17 00:05 Follow up: Response: Nausea unchanged br2 00:22 Drug: Potassium PO Effervescent Tablet 50 mEq PO once; dissolve in 4 ounces of water or br2 juice Route: PO; 01:09 Follow up: Response: No adverse reaction br2 01:06 Drug: morphine IVP or IV 4 mg IVP once over 4 mins Route: IVP; Infused Over: 4 mins; br2 Site: right antecubital; 01:35 Follow up: Response: No adverse reaction; Pain is decreased br2 01:06 Drug: Dicyclomine IM 20 mg IM once Route: IM; Site: left deltoid; br2 01:35 Follow up: Response: No adverse reaction; Pain is decreased br2 01:06 Drug: Promethazine IVP 12.5 mg IVP once Route: IVP; Site: right antecubital; br2 01:35 Follow up: Response: Nausea is decreased br2 Disposition: 01:45 Co-signature as Attending Physician, Basilio Rogers MD. rt Disposition Summary: 11/17/24 01:11 Discharge Ordered Notes: Location: Home cp Problem: an acute exacerbation cp Symptoms: have improved cp Condition: Stable cp Diagnosis - Nausea with vomiting, unspecified cp - Upper abdominal pain, unspecified cp - Hypokalemia cp - Morbid (severe) obesity due to excess calories cp Followup: cp - With: Private Physician - When: 2 - 3 days - Reason: Recheck today's complaints Discharge Instructions: - Discharge Summary Sheet cp - Abdominal Pain, Adult cp - Potassium Content of Foods cp - Nausea and Vomiting, Adult cp Forms: - Medication Reconciliation Form cp - Antibiotic Education cp - Prescription Opioid Use cp - Patient Portal Instructions cp - Leadership Thank You Letter cp Prescriptions: - promethazine 50 mg Rectal suppository - insert 1 suppository RECTAL route every 6 hours As needed; 20 suppository; cp Refills: 0, Product Selection Permitted - Potassium Chloride 20 meq Oral Packet - take 1 packet ORAL route once daily for 5 days 1 packet in 6 (six) ounces of cp water or juice; Take after meal; 5 packet; Refills: 0, Product Selection Permitted Signatures: Dispatcher [employer] EDOH Trace Castellano PA PA cp Sameer Paul, RN RN jb4 Cathie Ni RN RN ha1 Basilio Rogers MD MD rt Sharon Gonzales RN RN br2 Corrections: (The following items were deleted from the chart) 11/18 00:35 11/16 21:10 Onset: The symptoms/episode began/occurred today, cp cp 11/18 00:39 11/17 21:15 Constitutional: Positive for poor PO intake, Negative for fever, cp cp 11/18 00:39 11/17 21:15 Respiratory: Negative for cough, shortness of breath, wheezing, cp cp 04/05 00:39 04/04 21:15 Abdomen/GI: Positive for abdominal pain, nausea and vomiting, anorexia, cp Negative for diarrhea, constipation, hematemesis, black/tarry stool, rectal bleeding, cp 11/19 99:11/17 21:15 Eyes: Negative for injury, pain, redness, and discharge, cp cp 11/19 99:11/17 21:15 ENT: Negative for drainage from ear(s), ear pain, sore throat, difficulty cp swallowing, difficulty handling secretions, cp 11/19 99:11/17 21:15 Cardiovascular: Negative for chest pain, edema, palpitations, cp cp 11/19 99:11/17 21:15 Back: Negative for pain at rest, pain with movement, cp cp 11/19 99:11/17 21:15 : Negative for urinary symptoms, cp cp 11/19 99:11/17 21:15 Neuro: Negative for altered mental status, cp cp 11/19 99:11/17 21:15 All other systems are negative, cp cp
--- NOTE | 2024-11-17 01:12 | ER ---
Nurse's Notes [facility] Name: Katherine Yepez Age: 44 yrs Sex: Female : 1980 Arrival Date: 11/16/2024 Time: 20:43 Bed 3 Private MD: Diagnosis: Nausea with vomiting, unspecified;Upper abdominal pain, unspecified;Hypokalemia;Morbid (severe) obesity due to excess calories Presentation: 11/16 21:06 Chief complaint: Patient states: I have been vomiting since 1pm today and can't stop. jb4 Coronavirus screen: At this time, the client does not indicate any symptoms associated with coronavirus-19. Ebola Screen: No symptoms or risks identified at this time. Initial Sepsis Screen: Does the patient meet any 2 criteria? No. Patient's initial sepsis screen is negative. Does the patient have a suspected source of infection? No. Patient's initial sepsis screen is negative. Risk Assessment: Do you want to hurt yourself or someone else? Patient reports no desire to harm self or others. Onset of symptoms was November 16, 2024. Transition of care: patient was not received from another setting of care. 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 - Infectious Disease History:: Denies. - Social history:: Smoking status: Patient reports the use of cigarette tobacco products, smokes one pack cigarettes per day. Screenin:53 [facility] ED Fall Risk Assessment (Adult) History of falling in the last 3 months, br2 including since admission No falls in past 3 months (0 pts) Confusion or Disorientation No (0 pts) Intoxicated or Sedated No (0 pts) Impaired Gait No (0 pts) Mobility Assist Device Used No (0 pt) Altered Elimination No (0 pt) Score/Fall Risk Level 0 - 2 = Low Risk Oriented to surroundings. Abuse screen: Denies threats or abuse. Denies injuries from another. Nutritional screening: No deficits noted. Tuberculosis screening: No symptoms or risk factors identified. Assessment: 21:53 Reassessment: Patient and/or family updated on plan of care and expected duration. Pain br2 level reassessed. Patient is alert, oriented x 3, equal unlabored respirations, skin warm/dry/pink. General: Appears uncomfortable, Behavior is cooperative, anxious. Pain: Complains of pain in epigastric area, right upper quadrant and left upper quadrant Pain currently is 10 out of 10 on a pain scale. Neuro: Carpenter Agitation-Sedation Scale (RASS): +1 Restless Level of Consciousness is awake, alert, obeys commands, Oriented to person, place, time, situation. Cardiovascular: Capillary refill < 3 seconds. Respiratory: Airway is patent Respiratory effort is even, unlabored, Respiratory pattern is regular, symmetrical. GI: Abdomen is obese, Pt is actively vomiting Bowel sounds present X 4 quads. : No signs and/or symptoms were reported regarding the genitourinary system. EENT: No signs and/or symptoms were reported regarding the EENT system. Derm: No signs and/or symptoms reported regarding the dermatologic system. Musculoskeletal: No signs and/or symptoms reported regarding the musculoskeletal system. 22:40 Reassessment: Patient and/or family updated on plan of care and expected duration. Pain ha1 level reassessed. Patient is alert, oriented x 3, equal unlabored respirations, skin warm/dry/pink. 23:15 Reassessment: Patient and/or family updated on plan of care and expected duration. Pain ha1 level reassessed. Patient is alert, oriented x 3, equal unlabored respirations, skin warm/dry/pink. pt reports nausea, care provider notified. Vital Signs: 21:06 BP 175 / 92; Pulse 84; Resp 20; Temp 98.5(O); Pulse Ox 100% on R/A; Weight 142.88 kg jb4 (R); Height 5 ft. 11 in. (R); 22:03 BP 186 / 99; Pulse 70; Resp 18 S; Pulse Ox 94% on R/A; br2 22:30 BP 182 / 85; Pulse 68; Resp 18; Pulse Ox 100% ; Pain 7/10; br2 23:11 BP 165 / 86; Pulse 71; Resp 18 S; Pulse Ox 100% on R/A; Pain 4/10; br2 23:40 BP 163 / 75; Pulse 64; Resp 16 S; Pulse Ox 98% on R/A; br2 11/17 00:27 BP 164 / 88; Pulse 75; Resp 18; Pulse Ox 99% on R/A; jr13 01:07 BP 152 / 80; Pulse 85; Resp 18 S; Pulse Ox 100% on R/A; br2 01:17 BP 152 / 80; Pulse 71; Resp 18 S; Pulse Ox 99% on R/A; br2 11/16 21:06 Body Mass Index 43.93 (142.88 kg, 180.34 cm) jb4 22:30 Pain Scale: Adult br2 23:11 Pain Scale: Adult br2 ED Course: 11/16 20:54 Patient arrived in ED. al6 20:55 Trace Castellano PA is PHCP. cp 20:55 Basilio Rogers MD is Attending Physician. cp 21:08 Triage completed. jb4 21:08 Arm band placed on right wrist. jb4 21:39 Sharon Gonzales, BONITA is Primary Nurse. br2 21:53 Patient has correct armband on for positive identification. Bed in low position. Call br2 light in reach. Side rails up X 1. Provided Education on: plan of care. 21:55 Inserted saline lock: 18 gauge in right antecubital area, using aseptic technique. br2 Blood collected. Flushed with 10 mL NS. 21:55 CBC with Diff Sent. br2 21:55 CMP Sent. br2 21:56 Lipase Sent. br2 21:56 Test, Urine Sent. br2 22:16 EKG done, by solar panel technician. af3 11/17 01:36 No provider procedures requiring assistance completed. IV discontinued, intact, br2 bleeding controlled, No redness/swelling at site. Pressure dressing applied. Administered Medications: 11/16 21:55 Drug: metoCLOPramide IVP 10 mg IVP once; over 1 to 2 minutes Route: IVP; Site: right br2 antecubital; 22:30 Follow up: Response: No adverse reaction br2 21:55 Drug: Ativan IVP 1 mg IVP once Route: IVP; Site: right antecubital; br2 22:30 Follow up: Response: No adverse reaction; RASS: Alert and Calm (0) br2 21:56 Drug: Famotidine IVP 20 mg IVP once; dilute with 10 mL 0.9% NaCl; give over 2 minutes br2 Route: IVP; Site: right antecubital; 22:20 Follow up: Response: No adverse reaction; Marked relief of symptoms; Nausea is decreasedha1 21:56 Drug: NS 0.9% IV 1000 ml IV at 1 bolus Per protocol; to be given as a bolus over 60 br2 minutes Route: IV; Rate: 1 bolus; Site: right antecubital; 23:00 Follow up: Response: No adverse reaction; IV Intake: 1000ml br2 23:04 Drug: Potassium Chloride IV 20 mEq IV at calculated rate once; administer over 1-2 ha1 hours Route: IV; Rate: calculated rate; Site: right antecubital; 23:04 Drug: NS 0.9% IV 1000 ml IV at 500 ml/hr once; to be given over 120 minutes. mix with ha1 IV potassium Route: IV; Rate: 500 ml/hr; Site: right antecubital; 11/17 01:08 Follow up: Response: No adverse reaction; IV Status: Infusion continued; IV Intake: br2 1000ml 11/16 23:19 Drug: Promethazine IVP 12.5 mg IVP once Route: IVP; Site: right antecubital; br2 11/17 00:05 Follow up: Response: Nausea unchanged br2 00:22 Drug: Potassium PO Effervescent Tablet 50 mEq PO once; dissolve in 4 ounces of water or br2 juice Route: PO; 01:09 Follow up: Response: No adverse reaction br2 01:06 Drug: morphine IVP or IV 4 mg IVP once over 4 mins Route: IVP; Infused Over: 4 mins; br2 Site: right antecubital; 01:35 Follow up: Response: No adverse reaction; Pain is decreased br2 01:06 Drug: Dicyclomine IM 20 mg IM once Route: IM; Site: left deltoid; br2 01:35 Follow up: Response: No adverse reaction; Pain is decreased br2 01:06 Drug: Promethazine IVP 12.5 mg IVP once Route: IVP; Site: right antecubital; br2 01:35 Follow up: Response: Nausea is decreased br2 Medication: 01:36 VIS not applicable for this client. br2 Intake: 04 23:00 IV: 1000ml; Total: 1000ml. br2 11/17 01:08 IV: 1000ml; Total: 2000ml. br2 Outcome: 01:11 Discharge ordered by . cp 01:36 Discharged to home via wheelchair, br2 01:36 Condition: improved 01:36 Discharge instructions given to patient, Instructed on discharge instructions, follow up and referral plans. Demonstrated understanding of instructions, follow-up care, medications, Prescriptions given X 2, 01:36 Patient left the ED. br2 Signatures: Trace Castellano PA PA cp Bryson, James, RN RN jb4 Cathie Ni RN RN ha1 Sharon Gonzales RN RN br2 Elise Cooper af3 Darshana Newman al6 Shantelle Alaniz, RN RN jr13
[2024-11-17 01:47] VITALS: TEMP 98.5
[2024-11-17 02:08] VITALS: BP 152/80
[2024-11-17 02:09] VITALS: O2SAT 99
--- NOTE | 2024-11-17 13:20 | EKG ---
Test Date: 2024-11-16 Test Time: 22:00:14 C Software Developer: AF MEASUREMENT RESULTS: Intervals: Rate: 69 [place]: 194 QRSD: 118 QT: 468 QTc: [address]: P: 65 [place]: 194 QRS: -31 T: 15 INTERPRETIVE STATEMENTS: Normal sinus rhythm Left axis deviation Cannot rule out Anterior infarct, age undetermined Prolonged QT Abnormal ECG Compared to ECG 10/21/2024 13:46:40 Myocardial infarct finding now present Prolonged QT interval now present Sinus bradycardia no longer present Sinus arrhythmia no longer present Electronically Signed On 11-17-24 13:18:39 CDT by Simon Peck
== END 2024-11-17 01:36 | disposition home or self-care (01) ==
LOC: ER 20:43
DX: R11.2 Nausea with vomiting, unspecified (principal); E87.6 Hypokalemia; R10.12 Left upper quadrant pain; F17.210 Nicotine dependence, cigarettes, uncomplicated; E66.01 Morbid (severe) obesity due to excess calories
CPT/HCPCS: 96361; 93005; 85025; 81001; 36415; 83735; 81025; 83690; 80053; 80307; 96375; 96372; 96374; 99284; J2550 ×2; J3480; J2765; J0500; J7030 ×2

== ENCOUNTER 2024-12-18 10:25 | Emergency (ER) | payer OTHER ==
--- OUTSIDE RECORDS SUMMARY | 2024-12-18 10:41 | XMS REPORT | Continuity of Care Document ---
Author Name Unknown Address [address] [facility] [address] [place] [address] [facility] Address [address] [facility]. 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 Name Role Phone COSMO [facility] Care Physician Unavailable KATHLEEN WILD Attending Clinician Unavailable ANGÉLICA DIGGS Attending Clinician Unavailable DALLAS AGUILAR Attending Clinician Unavailable Doctor Unassigned, [place] Attending Clinician U VERN King Attending Clinician Vern Fernando MD Attending Clinician [phone] Gris Gruber Attending Clinician GRIS SANCHEZ Attending Clinician Unavailable BRISSA BETANCUR Attending Clinician Unavailable POLO PATTERSON Attending Clinician Unavailable KATHLEEN WILD Admitting Clinician Unavailable BRISSA AGUILAR Admitting Clinician Unavailable VERN SEVERINO Admitting Clinician Rosario varela Payers Payer Name Policy Type Policy Number Effective Date Expirati on Date Source ADRI JONESO [id number] 2021 00:00:00 Problems Condition Name Condition Details Condition Category Status Onset Date Resolution Date Last Treatment Date Treating Clinician Comments Source No known active problems No known active problems Disease [facility] Allergies, Adverse Reactions, Alerts Allergy Name Allergy Type Status Severity Reaction(s) Onset Date Inactive Date Treating Clinician Comments Source predniso ne Propensi ty to adverse reaction to drug Active 6-27 00:00: 00 Cosmo Nieves GABAPENT IN DRUG INGREDI Active High Other-Cmnt 0 3-19 00:00: 00 [facility] TRAMADOL DRUG INGREDI Active High Other-Cmnt 3-19 00:00: 00 [facility] Gabapent in - Oral [...] s Active Swelling 2020-08 0-27 00:00: 00 [facility] Predniso ne Propensi ty to adverse reaction s Active Rash 2020-08 0-27 00:00: 00 [facility] Ketorola c Propensi ty to adverse reaction s Active Other - See comments 2020-08 0-27 00:00: 00 zachary [facility] Ondanset fabiano Hcl Propensi ty to adverse reaction s Active Hives 2020-08 0-27 00:00: 00 [facility] SULFAMET HOXAZOLE -TRIMETH OPRIM DRUG Active Swelling 2020-08 0-27 00:00: 00 [facility] PREDNISO NE DRUG INGREDI Active Rash 2020-08 0 00:00: 00 [facility] KETOROLA C DRUG INGREDI Active Other-Cmnt 2020-08 0 00:00: 00 [facility] ONDANSET FABIANO HCL DRUG INGREDI Active Hives 2020-08 0 00:00: 00 [facility] Glimepir michelle Propensi ty to adverse reaction to drug Inactiv e 09-29 00:00: 00 Cosmo Brooks (ondanse andrea hcl) (Not Checked) Propensi ty to adverse reaction to drug Inactiv e 01-24 00:00: 00 Cosmo Nieves NO KNOWN ALLERGIE S Drug Class Active [facility] Social History Social Habit Start Date Stop Date Quantity Comments Source [facility] Exposure to SARS-CoV-2 (event) 2022-05-29 00:00:00 2022-06-08 12:00:00 Not sure [facility] Sex Assigned At 1980 00:00:00 1980 00:00:00 [facility] Smoking Status Start Date Stop Date Source Tobacco smoking consumption unknown [facility] Medications Ordered Medication Name Filled Medication Name [...] Cosmo Nieves atorvastati n 20 mg tablet 2023-08- 00:00: 00 Yes 1mg Cosmo Nieves metformin [...] Nieves metoprolol tartrate 100 mg tablet 2023-08 0-25 00:00: 00 Yes mg Cosmo Nieves glipizide [...] Cosmo Nieves glipizide 10 mg tablet 0 -27 00:00: 00 Yes mg Cosmo Nieves hydrochloro thiazide 25 mg tablet 0 -27 00:00: 00 Yes mg Cosmo Nieves Januvia 100 mg tablet 0 - 00:00: 00 Yes mg Cosmo Nieves levothyroxi ne 75 mcg tablet 0 - 00:00: 00 Yes mcg Cosmo Nieves Januvia 100 mg tablet 0 6- 00:00: 00 Yes mg Cosmo Nieves metoprolol tartrate 100 mg tablet 0 01-12 00:00: 00 Yes mg Cosmo Nieves tizanidine 4 mg tablet 0 01-12 00:00: 00 Yes mg Cosmo Nieves glipizide 10 mg tablet 0 01-12 00:00: 00 Yes mg Cosmo Nieves levothyroxi ne 75 mcg tablet 0 - 00:00: 00 Yes mcg Cosmo Nieves metformin [...] 10 Cosmo Nieves TAKE 1 TABLET DAILY. 2023-0 1-10 00:00: 00 Yes 25 Cosmo Nieves TAKE 1 TABLET BY MOUTH DAILY 1-10 00:00: 00 Yes 75 Cosmo Nieves TAKE 1 TABLET BY MOUTH TWICE DAILY 1-10 00:00: 00 Yes 100 Cosmo Nieves TAKE 1 TABLET EVERY 8 HOURS NEEDED FOR MUSCLE SPASM. 1- 00:00: 00 Yes 4 Cosmo Nieves TAKE 1 TABLET DAILY. 1- 00:00: 00 Yes 100 Cosmo Nieves TAKE 1 TABLET BY MOUTH EVERY 6 HOURS NEEDED FOR PAIN 1-09 00:00: 00 Yes Cosmo Nieves TAKE 1 TABLET BY MOUTH TWICE DAILY 1- 00:00: 00 12-27 00:00 :00 No 1000 Cosmo Nieves TAKE 1 TABLET BY MOUTH TWICE DAILY 1-04 00:00: 00 12-27 00:00 :00 No 10 Cosmo Nieves TAKE 1 TABLET BY MOUTH TWICE DAILY 2022-08 2- 00:00: 00 Yes Cosmo Nieves TAKE 1 TABLET BY MOUTH TWICE DAILY 2022-08 2- 00:00: 00 Yes 10 Cosmo Nieves TAKE 1 CAPSULE BY MOUTH EVERY 12 HOURS FOR 10 DAYS 2022-08 2- 00:00: 00 Yes Cosmo Nieves HYDROCODONE -ACETAMIN [...] WOUNDS 5 MINS BEFORE WOUND CARE DIRECTED 7-18 00:00: 00 Yes Cosmo Nieves TAKE [...] 10-325 MG 0 7-03 00:00: 00 Yes 32530 Cosmo Nieves APPLY A NICKEL THICK LAYER TO WOUND EDGE TO EDGE ONCE A DAY 0 6-20 00:00: 00 Yes Cosmo Nieves TAKE 1 TABLET BY MOUTH TWICE DAILY 01-18 00:00: 00 Yes Cosmo Nieves SODIUM CHLORIDE 0.9% IRRIG. 6- 00:00: 00 Yes Cosmo Nieves TAKE ONE CAPSULE BY MOUTH EVERY DAY FOR 7 DAYS 6- 00:00: 00 Yes Cosmo Nieves APLY THIN LAYER TO WOUND EVERY DAY DIRECTED 5-15 00:00: 00 Yes Cosmo Nieves APPLY TO WOUNDS 5 MINS BEFORE WOUND CARE DIRECTED 15 00:00: 00 Yes Cosmo Nieves CEPHALEXIN 500 MG CAPSULE -15 00:00: 00 Yes Cosmo Nieves SILVER SULFADIAZIN E 1% CREAM 5-04 00:00: 00 Yes Cosmo Nieves HYDROCODONE -ACETAMIN 10-325 MG 5- 00:00: 00 Yes Cosmo Nieves CEPHALEXIN 500 MG CAPSULE 5- 00:00: 00 Yes Cosmo Nieves TAKE 1 TABLET BY MOUTH EVERY 4 TO 6 HOURS FOR 7 DAYS NEEDED -21 00:00: 00 Yes Cosmo Nieves HYDROCODONE -ACETAMIN 10-325 MG 4-12 00:00: 00 Yes Cosmo Nieves METFORMIN HCL 1,000 MG 1-08 00:00: 00 Yes Cosmo Nieves LEVOTHYROXI NE 75 MCG 1-07 00:00: 00 Yes Cosmo Nieves TIZANIDINE HCL 4 MG 1-07 00:00: 00 Yes Cosmo Nieves TAKE 1 TABLET TWICE DAILY. -07 00:00: 00 12-27 00:00 :00 No 100 Cosmo Nieves TAKE 1 TABLET DAILY. 1-07 00:00: 00 12-27 00:00 :00 No 25 Cosmo Nieves TAKE 1 TABLET DAILY. -07 00:00: 00 12-27 00:00 :00 No 100 Cosmo Nieves TAKE 1 TABLET BY MOUTH TWICE A DAY 1-07 00:00: 00 12-27 00:00 :00 No 10 Cosmo Nieves TAKE 1 TABLET DAILY. 2021-08 2-20 00:00: 00 No TAKE 1 TABLET DAILY. 2021-08 2-20 00:00: 00 12-27 00:00 :00 No 25 Cosmo Nieves ACETAMINOPH EN-COD #3 2021-08 0-22 00:00: 00 Yes [id number] Cosmo Nieves TAKE 1 TABLET BY MOUTH [...] 1 TABLET BY MOUTH TWICE DAILY 0 7-22 00:00: 00 No 10 Januvia 100 mg tablet 3-18 00:00: 00 Yes 1mg Cosmo Nieves TAKE 1 TABLET DAILY. 3-18 00:00: 00 Yes Cosmo Nieves metoprolol tartrate 100 mg tablet 3-18 00:00: 00 Yes 1mg Cosmo Nieves metformin 1,000 mg tablet 3-18 00:00: 00 Yes 1mg Cosmo Nieves glipizide 10 mg tablet -18 00:00: 00 Yes 1mg Cosmo Nieves tizanidine 4 mg tablet 18 00:00: 00 Yes 1mg Cosmo Nieves levothyroxi ne 75 mcg tablet 10-31 00:00: 00 Yes 1mcg Cosmo Nieves Dose Unknown 3-18 00:00: 00 Yes Cosmo Nieves Januvia 100 mg tablet -18 00:00: 00 No 1mg hydrochloro thiazide 25 mg tablet 18 00:00: 00 No 1mg metoprolol tartrate 100 mg tablet 3-18 00:00: 00 No 1mg metformin 1,000 mg tablet 18 00:00: 00 No 1mg glipizide 10 mg tablet 18 00:00: 00 No 1mg tizanidine 4 mg tablet 18 00:00: 00 No 1mg levothyroxi ne 75 mcg tablet 18 00:00: 00 No 1mcg Dose Unknown 18 00:00: 00 No Januvia 100 mg tablet 3-18 00:00: 00 No 1mg TAKE 1 TABLET DAILY. -18 00:00: 00 No metoprolol tartrate 100 mg tablet 3-18 00:00: 00 No 1mg metformin 1,000 mg tablet 3-18 00:00: 00 No 1mg glipizide 10 mg tablet 3-18 00:00: 00 No 1mg tizanidine 4 mg tablet 3-18 00:00: 00 No 1mg levothyroxi ne 75 mcg tablet 3-18 00:00: 00 No 1mcg Dose Unknown -18 00:00: 00 No LEUCOVORIN CALCIUM 5 MG 2- 00:00: 00 Yes 5 Cosmo Nieves TAKE 6 TABLETS BY MOUTH 1 TIME A WEEK 2- 00:00: 00 Yes Cosmo Nieves amoxicillin 500 mg tablet 1- 00:00: 00 Yes 1mg Cosmo Nieves amoxicillin 500 mg tablet 1- [...] 2020-08 18:30: 00 07-04 14:20 :00 No [id number] 1mCi 1 millicurie , Oral, ONCE, 1 dose, On Wed07/04/21 at 1230, Routine [facility] NaCl 0.9% (NS) bolus infusion 1,000 mL 2020-08 18:30: 00 06-11 18:21 :00 No 1000mL at 999 mL/hr, 1,000 mL, IV Infusion, ONCE, 1 dose, On Wed06/11/21 at 1330, STAT [facility] morpHINE injection 4 mg 2020-08 18:15: 00 06-11 17:17 :00 No 4mg 4 mg, Slow IV Push, ONCE, 1 dose, On Wed06/11/21 at 1315, STAT [facility] proMETHazin e (PHENERGAN) 25 mg in NaCl 0.9% (NS) 50 mL piggyback 2020-08 17:30: 00 06-11 17:30 :00 No 25mg 25 mg, IV Piggyback, ONCE, 1 dose, On Wed06/11/21 at 1230, 50 mL [facility] metoclopram michelle HCl (REGLAN) injection 10 mg 2020-08 16:45: 00 06-11 15:39 :00 No 10mg 10 mg, Slow IV Push, ONCE, 1 dose, On Wed06/11/21 at 1145, ALIREZA [facility] No known medications 2020-08 0 10:18: 39 No [facility] Januvia 100 mg tablet 2020-08 0 00:00: [...] mg tablet 01-09 00:00: 00 Yes 1mg Comso Nieves levothyroxi ne 75 mcg tablet 01-09 [...] No 1mg metoprolol tartrate 100 mg tablet 2 00:00: 00 No 1mg metformin 1,000 mg tablet 2 00:00: 00 No 1mg glipizide 10 mg tablet 10-02 00:00: 00 No 1mg tizanidine 4 mg tablet 2 00:00: 00 No 1mg levothyroxi ne 75 mcg tablet 10-02 00:00: 00 No 1mcg metformin 500 mg tablet 2 00:00: 00 Yes 1mg Cosmo Nieves hydrochloro thiazide 25 mg tablet 2- 00:00: 00 Yes 1mg Cosmo Nieves metoprolol tartrate 100 mg tablet 2-17 00:00: 00 Yes 1mg Cosmo Nieves metformin 1,000 mg tablet 2-17 00:00: 00 Yes 1mg Cosmo Nieves glipizide 10 mg tablet 2-17 00:00: 00 Yes 1mg Cosmo Nieves tizanidine 4 mg tablet 2-17 00:00: 00 Yes 1mg Cosmo Nieves levothyroxi ne 75 mcg tablet 2-17 00:00: 00 Yes 1mcg Cosmo Nieves metformin 500 mg tablet 2019-08 1-25 00:00: 00 No 1mg metformin 500 mg [...] 00 No 1mg glipizide 10 mg tablet 14 00:00: 00 No 1mg tizanidine 4 mg [...] No 2mg metoprolol tartrate 50 mg tablet 10 00:00: 00 Yes 2mg Cosmo Nieves metformin 1,000 mg tablet 16 00:00: 00 No 1mg levothyroxi ne 75 mcg tablet 16 00:00: 00 No 1mcg metformin 1,000 mg tablet 16 00:00: 00 [...] 00:00: 00 Yes 1mg Cosmo Veronica Nieves omeprazole 20 mg capsule,del ayed release [...] Nieves levothyroxi ne 75 mcg tablet 2017-08 008 00:00: 00 No 1mcg levothyroxi ne 75 [...] Vital Name Observation Time Observation Value Comments Elliott fowleredie Systolic blood pressure 2021-06-11 18:27:00 155 mm[Hg] [facility] Diastolic blood pressure 2021-06-11 18:27:00 85 mm[Hg] [facility] Heart rate 2021-06-11 18:27:00 62 /min [facility] 2021-06-11 18:27:00 18 /min [facility] Oxygen saturation in Arterial blood by Pulse oximetry 2021-06-11 18:27:00 100 /min [facility] Body temperature 2021-06-11 14:37:00 36.33 Gabriella [facility] Body height 2021-06-11 14:37:00 180.3 cm [facility] Body weight 2021-06-11 14:37:00 176.903 kg [facility] BMI 2021-06-11 14:37:00 54.39 kg/m2 [facility] BP Systolic 2024-10-31 14:10:00 133 mm[Hg] Step hen F Ezequiel BP Diastolic 2024-10-31 14:10:00 85 mm[Hg] Gregorio phen F Ezequiel Weight Measured 2024-10-31 14:10:00 339.20 pounds Cosmo F Ezequiel Height Measured 2024-10-31 14:10:00 70.00 inches Cosmo F Ezequiel Body Temperature 2024-10-31 14:10:00 97.60 degrees Cosmo [...] 2023-05-24 14:50:00 19.00 /min Cosmo F Ezequiel Weight Measured 2022-08-22 13:29:00 373.80 pounds Cosmo F Ezequiel Height Measured 2022-08-22 13:29:00 70.00 inches Cosmo F Ezequiel Body Temperature 2022-08-22 13:29:00 98.80 degrees Cosmo F Ezequiel Heart Rate 2022-08-22 13:29:00 66.00 /min Anabela en F Ezequiel Respiratory Rate 2022-08-22 13:29:00 Cosmo F Ezequiel BP Systolic 2022-08-22 13:29:00 160 mm[Hg] Step hen F Ezequiel BP Diastolic 2022-08-22 13:29:00 84 mm[Hg] Gregorio phen F Ezequiel BP Systolic 2022-04-08 09:46:00 125 [...] Weight Measured 2021-04-14 10:28:00 387.40 pounds Cosmo Nieves Height Measured 2021-04-14 10:28:00 70.00 inches Cosmo F Ezequiel Body Temperature 2021-04-14 10:28:00 98.30 degrees Cosmo F Ezequiel Heart Rate 2021-04-14 10:28:00 68.00 /min Anabela en F Ezequiel Respiratory Rate 2021-04-14 10:28:00 Cosmo F Ezequiel BP Systolic 2020-07-06 11:59:00 140 mm[Hg] Step hen F Ezequiel BP Diastolic 2020-07-06 11:59:00 77 mm[Hg] Gregorio phen F Ezequiel Weight Measured 2020-07-06 11:59:00 399.40 pounds Cosmo Nieves Height Measured 2020-07-06 11:59:00 70.00 inches Cosmo Nieves Body Temperature 2020-07-06 11:59:00 98.30 degrees Cosmo Nieves Heart Rate 2020-07-06 11:59:00 64.00 /min Anabela en F Ezequiel Respiratory Rate 2020-07-06 11:59:00 Cosmo Nieves BP [...] OF BENEFITS 2022-06-08 17:00:19 Docto r Unassigned, [place] [facility] NM GASTRIC EMPTYING 2021-07-04 18:24:04 Vern Severino [facility] POCT TEST 2021-06-11 15:59:00 Gris Sanchez [facility] URINALYSIS 2021-06-11 15:58:00 [facility] LIPASE 2021-06-11 15:33:00 [facility] COMP. METABOLIC PANEL (03410) 2021-06-11 15:33:00 Gris Sanchez [facility] CBC WITH DIFF 2021-06-11 15:33:00 Gris Sanchez [facility] COVID-19 (ID NOW RAPID TESTING) 2021-06-11 15:33:00 Gris Sanchez [facility] NOTICE OF PRIVACY PRACTICES 2021-06-11 14:33:32 Doctor Unassigned, [place] [facility] CONSENT/REFUSAL FOR DIAGNOSIS AND TREATMENT 2021-06-11 14:26:41 Doctor Unassigned, [place] [facility] US ABDOMEN COMPLETE 2020-12-19 16:56:42 Vern Severino [facility] PATIENT FINANCIAL POLICY 2020-12-19 16:06:19 Doctor Unassigned, [place] [facility] NOTICE OF PRIVACY PRACTICES 2020-12-19 16:05:57 Doctor Unassigned, [place] [facility] CONSENT/REFUSAL FOR DIAGNOSIS AND TREATMENT 2020-12-19 16:05:36 Doctor Unassigned, [place] [facility] ASSIGNMENT OF BENEFITS 2020-12-19 16:05:11 Docto r Unassigned, [place] [facility] Ekg 2020-07-06 00:00:00 Cosmo Nieves 16478 Ecg Routine Ecg W/least 12 Lds W/i r 2016-01-25 00:00:00 Cosmo Nieves Plan of Care Planned Activity Planned Date Details Comments Source Goal Plan of Care Note [code = 77438-5] Goal Plan of Care Note [code = 67477-0] Goal Plan of Care Note [code = 61344-2] Goal Plan of Care Note [code = 78900-8] Goal Plan of Care Note [code = 78906-2] Goal Plan of Care Note [code = 91730-3] Goal Plan of Care Note [code = 43352-3] Goal Plan of Care Note [code = 13896-6] Goal Plan of Care Note [code = 28039-2] Goal Plan of Care Note [code = 61648-0] Goal Plan of Care Note [code = 25620-0] Goal Plan of Care Note [code = 05057-4] Goal Plan of Care Note [code = 45571-3] Goal Plan of Care Note [code = 41628-7] Goal Plan of Care Note [code = 91242-4] Goal Plan of Care Note [code = 81802-3] Goal Plan of Care Note [code = 00634-4] Goal Plan of Care Note [code = 63216-1] Goal Plan of Care Note [code = 95647-2] Goal Plan of Care Note [code = 57692-7] Goal Plan of Care Note [code = 99688-6] Goal Plan of Care Note [code = 23942-4] Goal Plan of Care Note [code = 11309-4] Goal Plan of Care Note [code = 42790-1] Goal Plan of Care Note [code = 25505-4] Goal Plan of Care Note [code = 92135-3] Goal Plan of Care Note [code = 18668-9] Goal Plan of Care Note [code = 46412-7] Goal Plan of Care Note [code = 86119-6] Goal Plan of Care Note [code = 29572-5] Goal Plan of Care Note [code = 97233-9] Goal Plan of Care Note [code = 88555-8] Goal Plan of Care Note [code = 61516-6] Goal Plan of Care Note [code = 90608-7] Goal Plan of Care Note [code = 61963-0] Goal Plan of Care Note [code = 64899-6] Goal Plan of Care Note [code = 14595-9] Goal Plan of Care Note [code = 14654-5] Goal Plan of Care Note [code = 66995-2] Goal Plan of Care Note [code = 77895-5] Goal Plan of Care Note [code = 65146-0] Goal Plan of Care Note [code = 63109-6] Goal Plan of Care Note [code = 21141-4] Goal Plan of Care Note [code = 58311-7] Goal Plan of Care Note [code = 63120-7] Goal Plan of Care Note [code = 61487-0] Goal Plan of Care Note [code = 27061-5] Goal Plan of Care Note [code = 65988-6] Goal Plan of Care Note [code = 09668-3] Goal Plan of Care Note [code = 69882-5] Goal Plan of Care Note [code = 54569-1] Goal Plan of Care Note [code = 55335-3] Goal Plan of Care Note [code = 29855-8] Goal Plan of Care Note [code = 12413-6] Goal Plan of Care Note [code = 12108-1] Goal Plan of Care Note [code = 31496-5] Goal Plan of Care Note [code = 93491-2] Goal Plan of Care Note [code = 03232-4] Encounters Start Date/Time End Date/Time Encounter Type Admission Type Attending Clinicians Care Facility Care Department Encounter ID Source 2023-11-02 13:51:31 Outpatient R KATHLEEN WILD [facility] [id number] [facility] 2024-10-31 13:53:56 2024-10-31 13:53:56 Outpatient SFA [facility] [id number] Cosmo Nieves 2024-10-31 00:00:00 2024-10-31 00:00:00 Outpatient Visit SFA [id number] Cosmo Nieves 2024-08-08 08:31:57 2024-08-08 08:31:[address] [facility] [id number] Cosmo Nieves 2024-08-08 00:00:00 2024-08-08 00:00:00 Outpatient Visit SFA [id number] Cosmo Nieves 2024-08-02 14:30:19 2024-08-02 14:30:[address] [facility] [id number] Cosmo Nivees 2024-08-02 00:00:00 2024-08-02 00:00:00 Outpatient Visit SFA [id number] Cosmo Nieves 2024-02-10 10:19:21 2024-02-10 10:19:[address] [facility] [id number] Cosmo Nieves 2024-02-10 00:00:00 2024-02-10 00:00:00 Outpatient Visit SFA [id number] Cosmo Nieves 2023-10-11 19:54:00 2023-10-11 23:40:00 emergency [facility] [id number] 2023-10-11 19:54:00 2023-10-11 23:40:00 Emergency ER ANGÉLICA DIGGS [facility] [id number] [facility] 2023-05-24 14:39:56 2023-05-24 14:39:56 Outpatient [facility] [id number] Cosmo Nieves 2022-08-22 13:20:07 2022-08-22 13:20:07 Outpatient [facility] [id number] Cosmo Nieves 2022-08-04 00:00:00 2022-08-04 00:00:00 Outpatient Visit [id number] 2022-06-08 12:01:41 2022-06-08 23:59:00 Outpatient R DALLAS AGUILAR [facility] [id number] [facility] 2022-06-08 00:00:00 2022-06-08 00:00:00 Orders Only Doctor Unassigned, [place] [facility] 1..840.114 [id number] [id number] [facility] 2022-04-08 00:00:00 2022-04-08 00:00:00 Outpatient Visit [id number] 2021-07-04 07:46:12 2021-07-04 23:59:00 Outpatient R VERN SOLANO [facility] [id number] [facility] 2021-07-04 07:46:12 2021-07-04 23:59:00 Hospital Encounter Vern Solano [facility] ..840.114 [id number] [facility] 2021-07-02 00:00:2021-07-02 00:00:00 Outpatient R DUNIARORYRICKI Sharyn VERN [facility] [id number] [facility] 2021-07-02 00:00:00 2021-07-02 00:00:00 Outpatient R LIMA Coles AMEENAJERRY [facility] [id number] [facility] 2021-06-12 00:00:00 2021-06-12 00:00:00 Patient Secure Msg Doctor Unassigned, [place] [facility] [id number] [id number] [id number] [facility] 2021-06-11 09:37:00 2021-06-11 13:28:00 Emergency Sanchez Gris S [facility] [id number] [id number] [id number] [facility] 2021-06-11 09:37:00 2021-06-11 13:28:00 Emergency X SANCHEZGRIS [facility] ERT [id number] [facility] 2020-12-19 11:07:11 2020-12-19 23:59:00 Hospital Encounter Kadie Solanoeric Leon [facility] [id number] [id number] [id number] [facility] 2020-12-19 00:00:00 2020-12-19 00:00:00 Outpatient R DUNIARORYRICKI Sharyn AMEENAROSENDOEric [facility] [id number] [facility] 2020-12-19 00:00:00 2020-12-19 00:00:00 Orders Only Doctor Unassigned, [place] [facility] [id number] [id number] [facility] 2020-11-26 23:25:00 2020-11-27 04:52:00 Emergency ER BRISSA BETANCUR [facility] [id number] [facility] 2019-04-15 17:08:00 2019-04-15 18:33:00 Emergency ER POLO PATTERSON [facility] [id number] [id number] 2013-01-13 07:43:00 2013-01-13 10:09:00 Emergency ER BRISSA BETANCUR [facility] [id number] [facility] Results Test Description Test Time Test Comments Results Result Co mments Source ALBUMIN/CREATININE RATIO, URINE, [id number] 04:13:59* Test Item Value Reference Range Interpretation Comme nts CREATININE, URINE, CONC. (test code = 2072) 190.2 MG/DL NOT ESTAB ALBUMIN, URINE, RANDOM (test code = 74195) 1.9 MG/DL NOT ESTAB CALC ALBUMIN/CREAT, RND (test code = 56895) 10 MG/G <30 Note: Albumin/Cr eatinine ratio reference interval reflects ADA and NKF guidelines. UNLESS OTHERWISE INDICATED, ALL TESTING PERFORMED AT [facility] [address] [place] [address] BOTTLE WASHER MACHINE: SHWETHA FLOWERS M.D. CLIA NUMBER [id number] [place] [id number] COMPREHENSIVE METABOLIC [id number] 04:12:53* Test Item Value Reference Range Interpretation Comme nts GLUCOSE (test code = 2217) 145 MG/DL 70-99 H BUN (test code = 2208) 8 MG/DL 6-20 CREATININE (test code = 2214) 0.84 MG/DL 0.60-1.30 eGFR (2020 CKD-EPI) (test co de = 00289) 89 ML/MIN/1.73 >60 CALC BUN/CREAT (test code [...] code = 2218) 32 U/L 5-40 LIPID [id number] 04:12:53* Test Item Value Reference Range Interpretation [...] SPECIMENS. FOR MOREINFORMATION, SEE CLIENT ANNOUNCEMENT AT [email or web address] RISK RATIO LDL/HDL (test code = 2237) 2.64 RATIO <3.22 CBC W/AUTO DIFF WITH [id number] 03:32:38* Test Item Value Reference Range Interpretation [...] 0.00-0.10 ABS NUCLEATED RBCS (test code = 51229) 0.00 K/UL 0.00-0.11 CBC W/AUTO [id number] 00:00:00* Test Item Value Reference Range Interpretation [...] ABS NUCLEATED RBCS (test cod e = 89702) 0.00 K/UL Cosmo NievesCOMPREHENSIVE METABOLIC [id number] 00:00:00* Test Item Value Reference Range Interpretation Comme nts GLUCOSE (test code = 2217) 145 MG/DL BUN (test code = 2208) 8 MG/DL CREATININE (test code = 2214) 0.84 MG/DL eGFR (2020 CKD-EPI) (test co de = 38525) 89 ML/MIN/1.73 CALC BUN/CREAT (test code = [...] code = 2219) 32 U/L Cosmo NievesLIPID [id number] 00:00:00* Test Item Value Reference Range Interpretation Comme nts CHOLESTEROL (test code = 2210) 208 MG/DL TRIGLYCERIDES (test code = 2232) 145 MG/DL HDL CHOLESTEROL (test code = 2220) 50 MG/DL CALC LDL CHOL (test code = 2237) 132 MG/DL RISK RATIO LDL/HDL (test cod e = 2238) 2.64 RATIO Cosmo NievesHEMOGLOBIN [id number] 00:00:00* Test Item Value Reference Range Interpretation Comme nts HEMOGLOBIN A1c (test code = 93552) 6.5 % Cosmo NievesALBUMIN/CREATININE RATIO, RANDOM [id number] 00:00:00* Test Item Value Reference Range Interpretation Comme nts CREATININE, URINE, CONC. (te st code = 2072) 190.2 MG/DL ALBUMIN, URINE, RANDOM (test code = 13613) 1.9 MG/DL CALC ALBUMIN/CREAT, RND (naz t code = 39254) 10 MG/G Cosmo NievesCBC W/AUTO [id number] 00:00:00* Test Item Value Reference Range Interpretation [...] ABS NUCLEATED RBCS (test cod e = 72773) 0.00 K/UL Cosmo NievesCOMPREHENSIVE METABOLIC [id number] 00:00:00* Test Item Value Reference Range Interpretation Comme nts GLUCOSE (test code = 2217) 145 MG/DL BUN (test code = 2208) 8 MG/DL CREATININE (test code = 2214) 0.84 MG/DL eGFR (2020 CKD-EPI) (test co de = 14270) 89 ML/MIN/1.73 CALC BUN/CREAT (test code = [...] code = 2219) 32 U/L Cosmo NievesLIPID [id number] 00:00:00* Test Item Value Reference Range Interpretation Comme nts CHOLESTEROL (test code = 2210) 208 MG/DL TRIGLYCERIDES (test code = 2232) 145 MG/DL HDL CHOLESTEROL (test code = 2220) 50 MG/DL CALC LDL CHOL (test code = 2237) 132 MG/DL RISK RATIO LDL/HDL (test cod e = 2238) 2.64 RATIO Cosmo NievesHEMOGLOBIN [id number] 00:00:00* Test Item Value Reference Range Interpretation Comme nts HEMOGLOBIN A1c (test code = 43884) 6.5 % Cosmo NievesALBUMIN/CREATININE RATIO, RANDOM [id number] 00:00:00* Test Item Value Reference Range Interpretation Comme nts CREATININE, URINE, CONC. (te st code = 2072) 190.2 MG/DL ALBUMIN, URINE, RANDOM (test code = 77710) 1.9 MG/DL CALC ALBUMIN/CREAT, RND (naz t code = 08362) 10 MG/G Cosmo Da SilvaH, THIRD [id number] 04:23:34* Test Item Value Reference Range Interpretation Comme nts TSH, THIRD GENERATION (test code = 2821) 3.690 UIU/ML 0.400-4.100 UNLESS OTHERWISE INDICATED, ALL TESTING PERFORMED AT [facility] [address] [place] [address] BOTTLE WASHER MACHINE: SHWETHA FLOWERS M.D. CLIA NUMBER [id number] [facility]. [id number] LIPID [id number] 04:19:53* Test Item Value Reference Range Interpretation [...] SPECIMENS. FOR MOREINFORMATION, SEE CLIENT ANNOUNCEMENT AT [email or web address] RISK RATIO LDL/HDL (test code = 2238) 2.94 RATIO <3.22 COMPREHENSIVE METABOLIC [id number] 04:19:53* Test Item Value Reference Range Interpretation Comme nts GLUCOSE (test code = 2217) 220 MG/DL 70-99 H BUN (test code = 2208) 11 MG/DL 6-20 CREATININE (test code = 2214) 0.74 MG/DL 0.60-1.30 eGFR (2020 CKD-EPI) (test code = 26223) 104 ML/MIN/1.73 >60 CALC BUN/CREAT (test code = 2235) 15 RATIO 6-28 SODIUM (test code = 2230) 139 MEQ/L 133-146 POTASSIUM (test code = 8) 4.6 MEQ/L 3.5-5.4 CHLORIDE (test code = 2214) 97 MEQ/L 95-107 CARBON DIOXIDE (test code = 2205) 26 MEQ/L 19-31 CALCIUM (test code = 2208) 10.2 MG/DL 8.5-10.5 PROTEIN, TOTAL (test code = 2228) 6.9 G/DL 6.1-8.3 ALBUMIN (test code = 2200) 4.3 G/DL 3.5-5.2 CALC GLOBULIN (test code = 2239) 2.6 G/DL 1.9-3.7 CALC A/G RATIO (test code = 2233) 1.7 RATIO 1.0-2.6 BILIRUBIN, TOTAL (test code = 2206) 0.3 MG/DL <=1.2 ALKALINE PHOSPHATASE (test code = 2203) 81 U/L 40-113 AST (test code = 2217) 54 U/L 9-40 H ALT (test code = 2218) 44 U/L 5-40 H HEMOGLOBIN [id number] 04:16:59* Test Item Value Reference Range Interpretation Comme nts HEMOGLOBIN A1c (test code = 14152) 8.6 % 4.2-5.6 H [employer] GUIDELINES FOR HGB A1C: [...] OR LABORATORY CONSULTATION. CBC W/AUTO DIFF WITH [id number] 02:14:16* Test Item Value Reference Range Interpretation [...] 0.00-0.10 ABS NUCLEATED RBCS (test code = 14586) 0.00 K/UL 0.00-0.11 HEMOGLOBIN [id number] 00:00:00* Test Item Value Reference Range Interpretation Comme nts HEMOGLOBIN A1c (test code = 36846) 8.6 % Cosmo F AustinLIPID [id number] 00:00:00* Test Item Value Reference Range Interpretation Comme nts CHOLESTEROL (test code = 2210) 228 MG/DL TRIGLYCERIDES (test code = 2232) 210 MG/DL HDL CHOLESTEROL (test code = 2220) 49 MG/DL CALC LDL CHOL (test code = 2237) 144 MG/DL RISK RATIO LDL/HDL (test cod e = 2238) 2.94 RATIO Cosmo NievesCBC W/AUTO [id number] 00:00:00* Test Item Value Reference Range Interpretation [...] ABS NUCLEATED RBCS (test cod e = 62702) 0.00 K/UL Cosmo NievesCOMPREHENSIVE METABOLIC [id number] 00:00:00* Test Item Value Reference Range Interpretation Comme nts GLUCOSE (test code = 2217) 220 MG/DL BUN (test code = 2208) 11 MG/DL CREATININE (test code = 2214) 0.74 MG/DL eGFR (2020 CKD-EPI) (test code = 14702) 104 ML/MIN/1.73 CALC BUN/CREAT (test code = [...] = 2219) 44 U/L Cosmo NievesTSH, THIRD [id number] 00:00:00* Test Item Value Reference Range Interpretation Comme parisa TSH, THIRD GENERATION (test code = 2821) 3.690 UIU/ML Cosmo NievesHEMOGLOBIN [id number] 00:00:00* Test Item Value Reference Range Interpretation Comme parisa HEMOGLOBIN A1c (test code = 22509) 8.6 % Cosmo NievesLIPID [id number] 00:00:00* Test Item Value Reference Range Interpretation Comme nts CHOLESTEROL (test code = 2210) 228 MG/DL TRIGLYCERIDES (test code = 2232) 210 MG/DL HDL CHOLESTEROL (test code = 2220) 49 MG/DL CALC LDL CHOL (test code = 2237) 144 MG/DL RISK RATIO LDL/HDL (test cod e = 2238) 2.94 RATIO Cosmo NievesCBC W/AUTO [id number] 00:00:00* Test Item Value Reference Range Interpretation [...] ABS NUCLEATED RBCS (test cod e = 77097) 0.00 K/UL Cosmo NievesCOMPREHENSIVE METABOLIC [id number] 00:00:00* Test Item Value Reference Range Interpretation Comme nts GLUCOSE (test code = 2217) 220 MG/DL BUN (test code = 2208) 11 MG/DL CREATININE (test code = 2214) 0.74 MG/DL eGFR (2020 CKD-EPI) (test code = 13505) 104 ML/MIN/1.73 CALC BUN/CREAT (test code = [...] code = 2219) 44 U/L Cosmo Obrien, [id number] 00:00:00* Test Item Value Reference Range Interpretation Comme nts TSH, THIRD GENERATION (test code = 2821) 3.690 UIU/ML Cosmo NievesHEMOGLOBIN [id number] 00:00:00* Test Item Value Reference Range Interpretation Comme nts HEMOGLOBIN A1c (test code = 58733) 8.6 % Cosmo NievesLIPID [id number] 00:00:00* Test Item Value Reference Range Interpretation Comme nts CHOLESTEROL (test code = 2210) 228 MG/DL TRIGLYCERIDES (test code = 2232) 210 MG/DL HDL CHOLESTEROL (test code = 2220) 49 MG/DL CALC LDL CHOL (test code = 2237) 144 MG/DL RISK RATIO LDL/HDL (test cod e = 2238) 2.94 RATIO Cosmo NievesCBC W/AUTO [id number] 00:00:00* Test Item Value Reference Range Interpretation [...] ABS NUCLEATED RBCS (test cod e = 53720) 0.00 K/UL Cosmo NievesCOMPREHENSIVE METABOLIC [id number] 00:00:00* Test Item Value Reference Range Interpretation Comme nts GLUCOSE (test code = 2217) 220 MG/DL BUN (test code = 2208) 11 MG/DL CREATININE (test code = 2214) 0.74 MG/DL eGFR (2020 CKD-EPI) (test code = 13768) 104 ML/MIN/1.73 CALC BUN/CREAT (test code = [...] ALT (test code = 2219) 44 U/L [id number] 00:00:00* Test Item Value Reference Range Interpretation Comme nts TSH, THIRD GENERATION (test code = 2821) 3.690 UIU/ML Cosmo Obrien THIRD [id number] 06:33:53* Test Item Value Reference Range Interpretation Comme nts TSH, THIRD GENERATION (test code = 2821) 1.670 UIU/ML 0.400-4.100 COMPREHENSIVE METABOLIC [id number] 05:19:24* Test Item Value Reference Range Interpretation Comme nts GLUCOSE (test code = 2217) 172 MG/DL 70-99 H BUN (test code = 2208) 12 MG/DL 6-20 CREATININE (test code = 2214) 0.68 MG/DL 0.60-1.30 eGFR (2020 CKD-EPI) (test code = 80551) 112 ML/MIN/1.73 >60 CALC BUN/CREAT (test code [...] = 2218) 47 U/L 5-40 H LIPID [id number] 05:19:24* Test Item Value Reference Range Interpretation [...] SPECIMENS. FOR MOREINFORMATION, SEE CLIENT ANNOUNCEMENT AT [email or web address] RISK RATIO LDL/HDL (test code = 2237) 2.73 RATIO <3.22 ALBUMIN/CREATININE RATIO, URINE, [id number] 05:11:57* Test Item Value Reference Range Interpretation Comme nts CREATININE, URINE, CONC. (test code = 2071) 243.2 MG/DL NOT ESTAB ALBUMIN, URINE, RANDOM (test code = 65454) 4.3 MG/DL NOT ESTAB CALC ALBUMIN/CREAT, RND (test code = 49267) 18 MG/G <30 Note: Albumin/Cr eatinine ratio reference interval reflects ADA and NKF guidelines. UNLESS OTHERWISE INDICATED, ALL TESTING PERFORMED AT [facility] [address] [place] [address] BOTTLE WASHER MACHINE: SHWETHA FLOWERS M.D. IA NUMBER [id number] [facility] [place]. [id number] HEMOGLOBIN [id number] 03:11:30* Test Item Value Reference Range Interpretation Comme nts HEMOGLOBIN A1c (test code = 22285) 7.2 % 4.2-5.6 H [employer] GUIDELINES FOR HGB A1C: [...] ALTERNATE TESTING OR LABORATORY CONSULTATION. COMPREHENSIVE METABOLIC [id number] 00:00:00* Test Item Value Reference Range Interpretation Comme nts GLUCOSE (test code = 7) 172 MG/DL BUN (test code = 2208) 12 MG/DL CREATININE (test code = 2214) 0.68 MG/DL eGFR (2020 CKD-EPI) (test code = 14508) 112 ML/MIN/1.73 CALC BUN/CREAT (test code = [...] 2219) 47 U/L Cosmo Da SilvaH, THIRD [id number] 00:00:00* Test Item Value Reference Range Interpretation Comme parisa TSH, THIRD GENERATION (test code = 2821) 1.670 UIU/ML Cosmo NievesHEMOGLOBIN [id number] 00:00:00* Test Item Value Reference Range Interpretation Comme parisa HEMOGLOBIN A1c (test code = 82242) 7.2 % Cosmo NievesLIPID [id number] 00:00:00* Test Item Value Reference Range Interpretation Comme nts CHOLESTEROL (test code = 2210) 245 MG/DL TRIGLYCERIDES (test code = 2232) 235 MG/DL HDL CHOLESTEROL (test code = 2220) 55 MG/DL CALC LDL CHOL (test code = 2237) 150 MG/DL RISK RATIO LDL/HDL (test cod e = 2238) 2.73 RATIO Cosmo NievesALBUMIN/CREATININE RATIO, RANDOM [id number] 00:00:00* Test Item Value Reference Range Interpretation Comme parisa CREATININE, URINE, CONC. (te st code = 2072) 243.2 MG/DL ALBUMIN, URINE, RANDOM (test code = 24013) 4.3 MG/DL CALC ALBUMIN/CREAT, RND (naz t code = 15187) 18 MG/G Cosmo NievesCOMPREHENSIVE METABOLIC [id number] 00:00:00* Test Item Value Reference Range Interpretation Comme nts GLUCOSE (test code = 2217) 172 MG/DL BUN (test code = 2208) 12 MG/DL CREATININE (test code = 2214) 0.68 MG/DL eGFR (2020 CKD-EPI) (test code = 40954) 112 ML/MIN/1.73 CALC BUN/CREAT (test code = [...] = 2219) 47 U/L Cosmo NievesTSH, THIRD [id number] 00:00:00* Test Item Value Reference Range Interpretation Comme parisa TSH, THIRD GENERATION (test code = 2821) 1.670 UIU/ML Cosmo NievesHEMOGLOBIN [id number] 00:00:00* Test Item Value Reference Range Interpretation Comme parisa HEMOGLOBIN A1c (test code = 26794) 7.2 % Cosmo NievesLIPID [id number] 00:00:00* Test Item Value Reference Range Interpretation Comme nts CHOLESTEROL (test code = 2210) 245 MG/DL TRIGLYCERIDES (test code = 2232) 235 MG/DL HDL CHOLESTEROL (test code = 2220) 55 MG/DL CALC LDL CHOL (test code = 2237) 150 MG/DL RISK RATIO LDL/HDL (test cod e = 2238) 2.73 RATIO Cosmo NievesALBUMIN/CREATININE RATIO, RANDOM [id number] 00:00:00* Test Item Value Reference Range Interpretation Comme parisa CREATININE, URINE, CONC. (te st code = 2072) 243.2 MG/DL ALBUMIN, URINE, RANDOM (test code = 78540) 4.3 MG/DL CALC ALBUMIN/CREAT, RND (naz t code = 11412) 18 MG/G Cosmo NievesCOMPREHENSIVE METABOLIC [id number] 00:00:00* Test Item Value Reference Range Interpretation Comme nts GLUCOSE (test code = 2217) 172 MG/DL BUN (test code = 2208) 12 MG/DL CREATININE (test code = 2214) 0.68 MG/DL eGFR (2020 CKD-EPI) (test code = 98978) 112 ML/MIN/1.73 CALC BUN/CREAT (test code = [...] = 2219) 47 U/L Cosmo NievesTSH, THIRD [id number] 00:00:00* Test Item Value Reference Range Interpretation Comme nts TSH, THIRD GENERATION (test code = 2821) 1.670 UIU/ML Cosmo NievesHEMOGLOBIN [id number] 00:00:00* Test Item Value Reference Range Interpretation Comme nts HEMOGLOBIN A1c (test code = 53235) 7.2 % Cosmo NievesLIPID [id number] 00:00:00* Test Item Value Reference Range Interpretation Comme nts CHOLESTEROL (test code = 2210) 245 MG/DL TRIGLYCERIDES (test code = 2232) 235 MG/DL HDL CHOLESTEROL (test code = 2220) 55 MG/DL CALC LDL CHOL (test code = 2237) 150 MG/DL RISK RATIO LDL/HDL (test cod e = 2238) 2.73 RATIO Cosmo NievesALBUMIN/CREATININE RATIO, RANDOM [id number] 00:00:00* Test Item Value Reference Range Interpretation Comme nts CREATININE, URINE, CONC. (te st code = 2072) 243.2 MG/DL ALBUMIN, URINE, RANDOM (test code = 24797) 4.3 MG/DL CALC ALBUMIN/CREAT, RND (naz t code = 97962) 18 MG/G Cosmo NievesCOMPREHENSIVE METABOLIC [id number] 00:00:00* Test Item Value Reference Range Interpretation Comme nts GLUCOSE (test code = 2217) 172 MG/DL BUN (test code = 2208) 12 MG/DL CREATININE (test code = 2214) 0.68 MG/DL eGFR (2020 CKD-EPI) (test code = 44255) 112 ML/MIN/1.73 CALC BUN/CREAT (test code = [...] 2204) 88 U/L AST (test code = 221) 61 U/L ALT (test code = 2219) 47 U/L Cosmo NievesTSH, THIRD [id number] 00:00:00* Test Item Value Reference Range Interpretation Comme [facility] TSH, THIRD GENERATION (test code = 2821) 1.670 UIU/ML Cosmo NievesHEMOGLOBIN [id number] 00:00:00* Test Item Value Reference Range Interpretation Comme nts HEMOGLOBIN A1c (test code = 91086) 7.2 % Cosmo NievesLIPID [id number] 00:00:00* Test Item Value Reference Range Interpretation Comme nts CHOLESTEROL (test code = 2210) 245 MG/DL TRIGLYCERIDES (test code = 2232) 235 MG/DL HDL CHOLESTEROL (test code = 2220) 55 MG/DL CALC LDL CHOL (test code = 2237) 150 MG/DL RISK RATIO LDL/HDL (test cod e = 2238) 2.73 RATIO Cosmo NievesALBUMIN/CREATININE RATIO, RANDOM [id number] 00:00:00* Test Item Value Reference Range Interpretation Comme nts CREATININE, URINE, CONC. (te st code = 2072) 243.2 MG/DL ALBUMIN, URINE, RANDOM (test code = 96156) 4.3 MG/DL CALC ALBUMIN/CREAT, RND (naz t code = 63953) 18 MG/G Cosmo Martin AustinHEMOGLOBIN [id number] 04:59:44* Test Item Value Reference Range Interpretation Comme [facility] HEMOGLOBIN A1c (test code = 74140) 6.5 % 4.2-5.6 H [employer] GUIDELINES FOR HGB A1C: [...] ALTERNATE TESTING OR LABORATORY CONSULTATION. COMPREHENSIVE METABOLIC [id number] 03:50:06* Test Item Value Reference Range Interpretation Comme nts GLUCOSE (test code = 2217) 184 MG/DL 70-99 H BUN (test code = 2207) 10 MG/DL 6-20 CREATININE (test code = 2214) 0.85 MG/DL 0.60-1.30 eGFR (2020 CKD-EPI) (test code = 76238) 89 ML/MIN/1.73 >60 CALC BUN/CREAT (test code [...] H UNLESS OTHERWISE INDICATED, [facility] [address] [place] [address] BOTTLE WASHER MACHINE: CHRISTINA MORALES M.D. IA NUMBER [id number] [facility] [place]. [id number] LIPID [id number] 03:50:06* Test Item Value Reference Range Interpretation [...] SPECIMENS. FOR MOREINFORMATION, SEE CLIENT ANNOUNCEMENT AT [email or web address] RISK RATIO LDL/HDL (test code = 2238) 2.78 RATIO <3.22 LIPID [id number] 00:00:00* Test Item Value Reference Range Interpretation Comme nts CHOLESTEROL (test code = 2210) 187 MG/DL TRIGLYCERIDES (test code = 2232) 197 MG/DL HDL CHOLESTEROL (test code = 2220) 41 MG/DL CALC LDL CHOL (test code = 2237) 114 MG/DL RISK RATIO LDL/HDL (test cod e = 2238) 2.78 RATIO Cosmo Veronica NievesCOMPREHENSIVE METABOLIC [id number] 00:00:00* Test Item Value Reference Range Interpretation Comme nts GLUCOSE (test code = 2217) 184 MG/DL BUN (test code = 2208) 10 MG/DL CREATININE (test code = 2214) 0.85 MG/DL eGFR (2020 CKD-EPI) (test co de = 98614) 89 ML/MIN/1.73 CALC BUN/CREAT (test code = [...] code = 2219) 46 U/L Cosmo NievesHEMOGLOBIN [id number] 00:00:00* Test Item Value Reference Range Interpretation Comme nts HEMOGLOBIN A1c (test code = 20585) 6.5 % Cosmo NievesLIPID [id number] 00:00:00* Test Item Value Reference Range Interpretation Comme nts CHOLESTEROL (test code = 2210) 187 MG/DL TRIGLYCERIDES (test code = 2232) 197 MG/DL HDL CHOLESTEROL (test code = 2220) 41 MG/DL CALC LDL CHOL (test code = 2237) 114 MG/DL RISK RATIO LDL/HDL (test cod e = 2238) 2.78 RATIO Cosmo NievesCOMPREHENSIVE METABOLIC [id number] 00:00:00* Test Item Value Reference Range Interpretation Comme nts GLUCOSE (test code = 2217) 184 MG/DL BUN (test code = 2208) 10 MG/DL CREATININE (test code = 2214) 0.85 MG/DL eGFR (2020 CKD-EPI) (test co de = 88772) 89 ML/MIN/1.73 CALC BUN/CREAT (test code = [...] code = 2219) 46 U/L Cosmo NievesHEMOGLOBIN [id number] 00:00:00* Test Item Value Reference Range Interpretation Comme parisa HEMOGLOBIN A1c (test code = 71494) 6.5 % Cosmo NievesLIPID [id number] 00:00:00* Test Item Value Reference Range Interpretation Comme nts CHOLESTEROL (test code = 2210) 187 MG/DL TRIGLYCERIDES (test code = 2232) 197 MG/DL HDL CHOLESTEROL (test code = 2220) 41 MG/DL CALC LDL CHOL (test code = 2237) 114 MG/DL RISK RATIO LDL/HDL (test cod e = 2238) 2.78 RATIO Cosmo NievesCOMPREHENSIVE METABOLIC [id number] 00:00:00* Test Item Value Reference Range Interpretation Comme nts GLUCOSE (test code = 2217) 184 MG/DL BUN (test code = 2208) 10 MG/DL CREATININE (test code = 2214) 0.85 MG/DL eGFR (2020 CKD-EPI) (test co de = 93666) 89 ML/MIN/1.73 CALC BUN/CREAT (test code = [...] = 2219) 46 U/L Cosmo Martin AustinHEMOGLOBIN [id number] 00:00:00* Test Item Value Reference Range Interpretation Comme nts HEMOGLOBIN A1c (test code = 19604) 6.5 % Cosmo Martin AustinLIPID [id number] 00:00:00* Test Item Value Reference Range Interpretation Comme nts CHOLESTEROL (test code = 2210) 187 MG/DL TRIGLYCERIDES (test code = 2232) 197 MG/DL HDL CHOLESTEROL (test code = 2220) 41 MG/DL CALC LDL CHOL (test code = 2237) 114 MG/DL RISK RATIO LDL/HDL (test cod e = 2238) 2.78 RATIO Cosmo NievesCOMPREHENSIVE METABOLIC [id number] 00:00:00* Test Item Value Reference Range Interpretation Comme nts GLUCOSE (test code = 2217) 184 MG/DL BUN (test code = 2208) 10 MG/DL CREATININE (test code = 2214) 0.85 MG/DL eGFR (2020 CKD-EPI) (test co de = 22734) 89 ML/MIN/1.73 CALC BUN/CREAT (test code = [...] code = 2219) 46 U/L Cosmo NievesHEMOGLOBIN [id number] 00:00:00* Test Item Value Reference Range Interpretation Comme nts HEMOGLOBIN A1c (test code = 88274) 6.5 % Cosmo F AustinHEMOGLOBIN [id number] 00:00:00* Test Item Value Reference Range Interpretation Comme nts HEMOGLOBIN A1c (test code = 62798) 6.5 % LIPID [id number] 00:00:00* Test Item Value Reference Range Interpretation Comme nts CHOLESTEROL (test code = 2210) 187 MG/DL TRIGLYCERIDES (test code = 2232) 197 MG/DL HDL CHOLESTEROL (test code = 2220) 41 MG/DL CALC LDL CHOL (test code = 2237) 114 MG/DL RISK RATIO LDL/HDL (test cod e = 2238) 2.78 RATIO COMPREHENSIVE METABOLIC [id number] 00:00:00* Test Item Value Reference Range Interpretation Comme nts GLUCOSE (test code = 2217) 184 MG/DL BUN (test code = 2208) 10 MG/DL CREATININE (test code = 2214) 0.85 MG/DL eGFR (2020 CKD-EPI) (test co de = 82845) 89 ML/MIN/1.73 CALC BUN/CREAT (test code = [...] (test code = 2219) 46 U/L HEMOGLOBIN [id number] 04:36:49* Test Item Value Reference Range Interpretation Comme nts HEMOGLOBIN A1c (test code = 16411) 6.5 % 4.2-5.6 H [employer] GUIDELINES FOR HGB A1C: [...] CONSULTATION. UNLESS OTHERWISE INDICATED, [facility] [address] [place] [address] BOTTLE WASHER MACHINE: CHRISTINA MORALES M.D. IA NUMBER [id number] [facility] [place]. [id number] COMPREHENSIVE METABOLIC [id number] 03:37:53* Test Item Value Reference Range Interpretation Comme nts GLUCOSE (test code = 2217) 113 MG/DL 70-99 H BUN (test code = 220) 11 MG/DL 6-20 CREATININE (test code = 2214) 0.76 MG/DL 0.60-1.30 eGFR (2020 CKD-EPI) (test code = 26851) 102 ML/MIN/1.73 >60 CALC BUN/CREAT (test code [...] code = 2219) 27 U/L 5-40 LIPID [id number] 03:37:53* Test Item Value Reference Range Interpretation [...] SPECIMENS. FOR MOREINFORMATION, SEE CLIENT ANNOUNCEMENT AT [email or web address] RISK RATIO LDL/HDL (test code = 2238) 3.02 RATIO <3.22 CBC W/AUTO DIFF WITH [id number] 03:37:16* Test Item Value Reference Range Interpretation [...] = 1065) 0.0 /100 WBC'S See_Comment [[employer]] The system which generated this result [...] 0.00-0.10 ABS NUCLEATED RBCS (test code = 98003) 0.00 K/UL 0.00-0.11 COMPREHENSIVE METABOLIC [id number] 00:00:00* Test Item Value Reference Range Interpretation Comme nts GLUCOSE (test code = 2217) 113 MG/DL BUN (test code = 2208) 11 MG/DL CREATININE (test code = 2214) 0.76 MG/DL eGFR (2020 CKD-EPI) (test code = 29270) 102 ML/MIN/1.73 CALC BUN/CREAT (test code = [...] = 2219) 27 U/L Cosmo F AustinLIPID [id number] 00:00:00* Test Item Value Reference Range Interpretation Comme nts CHOLESTEROL (test code = 2210) 217 MG/DL TRIGLYCERIDES (test code = 2232) 226 MG/DL HDL CHOLESTEROL (test code = 2220) 45 MG/DL CALC LDL CHOL (test code = 2237) 136 MG/DL RISK RATIO LDL/HDL (test cod e = 2238) 3.02 RATIO Cosmo NievesHEMOGLOBIN [id number] 00:00:00* Test Item Value Reference Range Interpretation Comme nts HEMOGLOBIN A1c (test code = 10476) 6.5 % Cosmo NievesCBC W/AUTO [id number] 00:00:00* Test Item Value Reference Range Interpretation [...] ABS NUCLEATED RBCS (test cod e = 90078) 0.00 K/UL Cosmo NievesCOMPREHENSIVE METABOLIC [id number] 00:00:00* Test Item Value Reference Range Interpretation Comme nts GLUCOSE (test code = 2217) 113 MG/DL BUN (test code = 2208) 11 MG/DL CREATININE (test code = 2214) 0.76 MG/DL eGFR (2020 CKD-EPI) (test code = 90854) 102 ML/MIN/1.73 CALC BUN/CREAT (test code = [...] (test code = 2219) 27 U/L Cosmo Martin EzequielLIPID [id number] 00:00:00* Test Item Value Reference Range Interpretation Comme nts CHOLESTEROL (test code = 2210) 217 MG/DL TRIGLYCERIDES (test code = 2232) 226 MG/DL HDL CHOLESTEROL (test code = 2220) 45 MG/DL CALC LDL CHOL (test code = 2237) 136 MG/DL RISK RATIO LDL/HDL (test cod e = 2238) 3.02 RATIO Cosmo NievesHEMOGLOBIN [id number] 00:00:00* Test Item Value Reference Range Interpretation Comme nts HEMOGLOBIN A1c (test code = 70229) 6.5 % Cosmo Martin EzequielCBC W/AUTO [id number] 00:00:00* Test Item Value Reference Range Interpretation [...] ABS NUCLEATED RBCS (test cod e = 08145) 0.00 K/UL Cosmo NievesCOMPREHENSIVE METABOLIC [id number] 00:00:00* Test Item Value Reference Range Interpretation Comme nts GLUCOSE (test code = 2217) 113 MG/DL BUN (test code = 2208) 11 MG/DL CREATININE (test code = 2214) 0.76 MG/DL eGFR (2020 CKD-EPI) (test code = 71684) 102 ML/MIN/1.73 CALC BUN/CREAT (test code = [...] code = 2219) 27 U/L Cosmo NievesLIPID [id number] 00:00:00* Test Item Value Reference Range Interpretation Comme nts CHOLESTEROL (test code = 2210) 217 MG/DL TRIGLYCERIDES (test code = 2232) 226 MG/DL HDL CHOLESTEROL (test code = 2220) 45 MG/DL CALC LDL CHOL (test code = 2237) 136 MG/DL RISK RATIO LDL/HDL (test cod e = 2238) 3.02 RATIO Cosmo NievesCBC W/AUTO [id number] 00:00:00* Test Item Value Reference Range Interpretation [...] ABS NUCLEATED RBCS (test cod e = 35996) 0.00 K/UL HEMOGLOBIN [id number] 00:00:00* Test Item Value Reference Range Interpretation Comme nts HEMOGLOBIN A1c (test code = 51872) 6.5 % Cosmo NievesCOMPREHENSIVE METABOLIC [id number] 00:00:00* Test Item Value Reference Range Interpretation Comme nts GLUCOSE (test code = 2217) 113 MG/DL BUN (test code = 2208) 11 MG/DL CREATININE (test code = 2214) 0.76 MG/DL eGFR (2020 CKD-EPI) (test code = 27370) 102 ML/MIN/1.73 CALC BUN/CREAT (test code = [...] code = 2219) 27 U/L CBC W/AUTO [id number] 00:00:00* Test Item Value Reference Range Interpretation [...] ABS NUCLEATED RBCS (test cod e = 07437) 0.00 K/UL Cosmo NievesCOMPREHENSIVE METABOLIC [id number] 00:00:00* Test Item Value Reference Range Interpretation Comme nts GLUCOSE (test code = 2217) 113 MG/DL BUN (test code = 2208) 11 MG/DL CREATININE (test code = 2214) 0.76 MG/DL eGFR (2020 CKD-EPI) (test code = 72082) 102 ML/MIN/1.73 CALC BUN/CREAT (test code = [...] (test code = 2219) 27 U/L Cosmo Martin AustinLIPID [id number] 00:00:00* Test Item Value Reference Range Interpretation Comme nts CHOLESTEROL (test code = 2210) 217 MG/DL TRIGLYCERIDES (test code = 2232) 226 MG/DL HDL CHOLESTEROL (test code = 2220) 45 MG/DL CALC LDL CHOL (test code = 2237) 136 MG/DL RISK RATIO LDL/HDL (test cod e = 2238) 3.02 RATIO HEMOGLOBIN [id number] 00:00:00* Test Item Value Reference Range Interpretation Comme parisa HEMOGLOBIN A1c (test code = 60719) 6.5 % LIPID [id number] 00:00:00* Test Item Value Reference Range Interpretation Comme nts CHOLESTEROL (test code = 2210) 217 MG/DL TRIGLYCERIDES (test code = 2232) 226 MG/DL HDL CHOLESTEROL (test code = 2220) 45 MG/DL CALC LDL CHOL (test code = 2237) 136 MG/DL RISK RATIO LDL/HDL (test cod e = 2238) 3.02 RATIO Cosmo NievesHEMOGLOBIN [id number] 00:00:00* Test Item Value Reference Range Interpretation Comme parisa HEMOGLOBIN A1c (test code = 86194) 6.5 % Cosmo NievesCBC W/AUTO [id number] 00:00:00* Test Item Value Reference Range Interpretation [...] ABS NUCLEATED RBCS (test cod e = 26682) 0.00 K/UL CBC W/AUTO [id number] 00:00:00* Test Item Value Reference Range Interpretation [...] ABS NUCLEATED RBCS (test cod e = 31613) 0.00 K/UL Cosmo Martin AustinCOMPREHENSIVE METABOLIC [id number] 00:00:00* Test Item Value Reference Range Interpretation Comme nts GLUCOSE (test code = 2217) 113 MG/DL BUN (test code = 2208) 11 MG/DL CREATININE (test code = 2214) 0.76 MG/DL eGFR (2020 CKD-EPI) (test code = 14108) 102 ML/MIN/1.73 CALC BUN/CREAT (test code = [...] (test code = 2219) 27 U/L LIPID [id number] 00:00:00* Test Item Value Reference Range Interpretation Comme nts CHOLESTEROL (test code = 2210) 217 MG/DL TRIGLYCERIDES (test code = 2232) 226 MG/DL HDL CHOLESTEROL (test code = 2220) 45 MG/DL CALC LDL CHOL (test code = 2237) 136 MG/DL RISK RATIO LDL/HDL (test cod e = 2238) 3.02 RATIO HEMOGLOBIN [id number] 00:00:00* Test Item Value Reference Range Interpretation Comme nts HEMOGLOBIN A1c (test code = 75974) 6.5 % CULTURE, [id number] 08:54:24SPECIMEN NUMBER: [id number] CULTURE, URINE SPECIMEN NUMBER: [id number] SPECIMEN COMMENT: URINE SOURCE: URINE REPORT STATUS: FINAL FINAL REPORT: 08/23/2021 10-50,000 CFU/ML UROGENITAL SAL PRESENT NO C OMMON PATHOGENS UNLESS OTHERWISE INDICATED, [facility] TEST[facility] [address] [place] [address] BOTTLE WASHER MACHINE: CHRISTINA MORALES M.D. CLIA NUMBER [id number] [place]. [id number] CULTURE, [id number] 00:00:00* Test Item Value Reference Range Interpretation Comme nts CULTURE, URINE (test code = 53105) SPECIMEN NUMBER: [id number] Cosmo Veronica Alden, [id number] 00:00:00* Test Item Value Reference Range Interpretation Comme nts CULTURE, URINE (test code = 69604) SPECIMEN NUMBER: [id number] Cosmo NievesCULTURE, [id number] 00:00:00* Test Item Value Reference Range Interpretation Comme nts CULTURE, URINE (test code = 78851) SPECIMEN NUMBER: [id number] CULTURE, [id number] 00:00:00* Test Item Value Reference Range Interpretation Comme nts CULTURE, URINE (test code = 02469) SPECIMEN NUMBER: [id number] Cosmo NievesCULTURE, [id number] 00:00:00* Test Item Value Reference Range Interpretation Comme nts CULTURE, URINE (test code = 89225) SPECIMEN NUMBER: [id number] CULTURE, [id number] 00:00:00* Test Item Value Reference Range Interpretation Comme nts CULTURE, URINE (test code = 52794) SPECIMEN NUMBER: [id number] Cosmo NievesLIPID [id number] 00:00:00* Test Item Value Reference Range Interpretation Comme nts CHOLESTEROL (test code = 2210) 191 MG/DL TRIGLYCERIDES (test code = 2232) 193 MG/DL HDL CHOLESTEROL (test code = 2220) 43 MG/DL CALC LDL CHOL (test code = 2237) 117 MG/DL RISK RATIO LDL/HDL (test cod e = 2238) 2.72 RATIO Cosmo [id number] 00:00:00* Test Item Value Reference Range Interpretation Comme nts TSH, THIRD GENERATION (test code = 2821) 1.190 UIU/ML Cosmo NievesHEMOGLOBIN [id number] 00:00:00* Test Item Value Reference Range Interpretation Comme nts HEMOGLOBIN A1c (test code = 47553) 6.8 % Cosmo Martin AustinLIPID [id number] 00:00:00* Test Item Value Reference Range Interpretation Comme nts CHOLESTEROL (test code = 2210) 191 MG/DL TRIGLYCERIDES (test code = 2232) 193 MG/DL HDL CHOLESTEROL (test code = 2220) 43 MG/DL CALC LDL CHOL (test code = 2237) 117 MG/DL RISK RATIO LDL/HDL (test cod e = 2238) 2.72 RATIO Cosmo Martin [id number] 00:00:00* Test Item Value Reference Range Interpretation Comme nts TSH, THIRD GENERATION (test code = 2821) 1.190 UIU/ML Cosmo Martin AustinHEMOGLOBIN [id number] 00:00:00* Test Item Value Reference Range Interpretation Comme nts HEMOGLOBIN A1c (test code = 98721) 6.8 % Cosmo Martin AustinLIPID [id number] 00:00:00* Test Item Value Reference Range Interpretation Comme nts CHOLESTEROL (test code = 2210) 191 MG/DL TRIGLYCERIDES (test code = 2232) 193 MG/DL HDL CHOLESTEROL (test code = 2220) 43 MG/DL CALC LDL CHOL (test code = 2237) 117 MG/DL RISK RATIO LDL/HDL (test cod e = 2238) 2.72 RATIO Cosmo Martin [id number] 00:00:00* Test Item Value Reference Range Interpretation Comme nts TSH, THIRD GENERATION (test code = 2821) 1.190 UIU/ML Cosmo NievesHEMOGLOBIN [id number] 00:00:00* Test Item Value Reference Range Interpretation Comme nts HEMOGLOBIN A1c (test code = 70166) 6.8 % LIPID [id number] 00:00:00* Test Item Value Reference Range Interpretation Comme nts CHOLESTEROL (test code = 2210) 191 MG/DL TRIGLYCERIDES (test code = 2232) 193 MG/DL HDL CHOLESTEROL (test code = 2220) 43 MG/DL CALC LDL CHOL (test code = 2237) 117 MG/DL RISK RATIO LDL/HDL (test cod e = 2238) 2.72 RATIO HEMOGLOBIN [id number] 00:00:00* Test Item Value Reference Range Interpretation Comme nts HEMOGLOBIN A1c (test code = 95451) 6.8 % Cosmo Martin AustinLIPID [id number] 00:00:00* Test Item Value Reference Range Interpretation Comme nts CHOLESTEROL (test code = 2210) 191 MG/DL TRIGLYCERIDES (test code = 2232) 193 MG/DL HDL CHOLESTEROL (test code = 2220) 43 MG/DL CALC LDL CHOL (test code = 2237) 117 MG/DL RISK RATIO LDL/HDL (test cod e = 2238) 2.72 RATIO Cosmo Martin [id number] 00:00:00* Test Item Value Reference Range Interpretation Comme nts TSH, THIRD GENERATION (test code = 2821) 1.190 UIU/ML [id number] 00:00:00* Test Item Value Reference Range Interpretation Comme nts TSH, THIRD GENERATION (test code = 2821) 1.190 UIU/ML Cosmo Martin AustinHEMOGLOBIN [id number] 00:00:00* Test Item Value Reference Range Interpretation Comme nts HEMOGLOBIN A1c (test code = 42223) 6.8 % Cosmo Martin AustinHEMOGLOBIN [id number] 00:00:00* Test Item Value Reference Range Interpretation Comme nts HEMOGLOBIN A1c (test code = 68585) 6.8 % LIPID [id number] 00:00:00* Test Item Value Reference Range Interpretation Comme nts CHOLESTEROL (test code = 2210) 191 MG/DL TRIGLYCERIDES (test code = 2232) 193 MG/DL HDL CHOLESTEROL (test code = 2220) 43 MG/DL CALC LDL CHOL (test code = 2237) 117 MG/DL RISK RATIO LDL/HDL (test cod e = 2238) 2.72 RATIO [id number] 00:00:00* Test Item Value Reference Range Interpretation Comme nts TSH, THIRD GENERATION (test code = 2821) 1.190 UIU/ML COMP. METABOLIC PANEL ([id number])2021-06-11 16:24:00* Test Item Value Reference Range Interpretation Comme nts NA (test code = 9678763125) 137 mmol/L 135-145 K (test code = 4331280259) 4.1 mmol/L 3.5-5.0 CL (test code = 4464452760) 101 mmol/L 98-108 CO2 TOTAL (test code = 5474198211) 27 mmol/L 23-31 AGAP (test code = 7865916749) 2-16 BUN (test code = 1870960850) 10 mg/dL 7-23 GLUCOSE (test code = 2481118240) 195 mg/dL 70-110 H CREATININE (test code = 5167571526) 0.60 mg/dL 0.50-1.04 TOTAL BILI (test code = 0817934103) 0.6 mg/dL 0.1-1.1 CALCIUM (test code = 3933922528) 9.8 mg/dL 8.6-10.6 T PROTEIN (test code = 6773394421) 7.3 g/dL 6.3-8.2 ALBUMIN (test code = 6054651876) 4.4 g/dL 3.5-5.0 ALK PHOS (test code = 5818688148) 80 U/L 34-122 ALTv (test code = 1742-6) 35 U/L 5-35 AST(SGOT) (test code = 6897698625) 40 U/L 13-40 eGFR (test code = 3979852933) mL/min/1.73m2 EVGENY (test code = EVGENY) Association [...] imaging tests). Lab Interpretation (test code = 25396-5) [id number] 16:23:39* Test Item Value Reference Range Interpretation Comme nts LIPASE (test code = 8989460561) 112 U/L 0-220 Lab Interpretation (test cod e = 76972-4) Normal [facility] WITH [id number] 16:18:37* Test Item Value Reference Range Interpretation [...] g/dL 31.6-35.1 L RDW-SD (test code = 32824-8) 48.1 fL 39.0-49.9 RDW-CV (test code = 788-0) 17.8 % 12.0-15.5 H PLT (test code = 777-3) See_Comment H [Automated message] The system which generated this result transmitted reference range: 166 - 358 10*3/?L. The reference range was not used to interpret this result as normal/abnormal. MPV (test code = 16696-5) 12.1 fL 9.5-12.9 NRBC/100 WBC (test code = 1643733618) See_Comment [Automated message] The system which generated this result transmitted reference range: 0.0 - 10.0 /100 WBCs. The reference range was not used to interpret this result as normal/abnormal. NRBC x10^3 (test code = 9871365784) <0.01 See_Comment [Automated message] The system which generated this result transmitted reference range: 10*3/?L. The reference range was not used to interpret this result as normal/abnormal. GRAN MAT (NEUT) % (test code = 770-8) 80.5 % IMM GRAN % (test code = 2641342737) 1.00 % LYMPH % (test code = 736-9) 13.0 % MONO % (test code = 5905-5) 3.8 % EOS % (test code = 713-8) 1.3 % BASO % (test code = 706-2) 0.4 % GRAN MAT x10^3(ANC) (test code = 2177845876) 12.47 10*3/uL 1.88-7.09 H IMM GRAN x10^3 (test code = 2313009812) 0.16 10*3/uL 0.00-0.06 H LYMPH x10^3 (test code = 731-0) 2.02 10*3/uL 1.32-3.29 MONO x10^3 (test code = 742-7) 0.59 10*3/uL 0.33-0.92 EOS x10^3 (test code = 711-2) 0.20 10*3/uL 0.03-0.39 BASO x10^3 (test code = 704-7) 0.06 10*3/uL 0.01-0.07 Lab Interpretation (test code = 27965-1) [facility] [id number] 15:59:00* Test Item Value Reference Range Interpretation Comme nts POCT PREG (test code = 1605) Negative On board controls acceptable with C Line (test code = 3574) Present POCT PREG LOT # (test code = 3575) HCG [id number] POCT PREG TEST DATE ( test code = 3576) 08/15/2022 Lab Interpretation (test cod e = 79022-5) [facility] [id number] 00:00:00* Test Item Value Reference Range Interpretation Comme nts CHOLESTEROL (test code = 2210) 208 MG/DL TRIGLYCERIDES (test code = 2232) 140 MG/DL HDL CHOLESTEROL (test code = 2220) 48 MG/DL CALC LDL CHOL (test code = 2237) 134 MG/DL RISK RATIO LDL/HDL (test cod e = 2238) 2.79 RATIO Cosmo NievesCOMPREHENSIVE METABOLIC [id number] 00:00:00* Test Item Value Reference Range Interpretation Comme nts GLUCOSE (test code = 2217) 143 MG/DL BUN (test code = 2208) 10 MG/DL CREATININE (test code = 2214) 0.60 MG/DL eGFR AMER. (test cod e = 43199) 133 ML/MIN/1.73 eGFR NON- AMER. (test code = 28372) 115 ML/MIN/1.73 CALC BUN/CREAT (test code = [...] (test code = 2219) 34 U/L Cosmo [id number] 00:00:00* Test Item Value Reference Range Interpretation Comme nts TSH, THIRD GENERATION (test code = 2821) 1.940 UIU/ML Cosmo Martin EzequielMICROALBUMIN/CREATININE, RANDOM AND [id number] 00:00:00* Test Item Value Reference Range Interpretation Comme nts CREATININE, URINE, CONC. (te st code = 2072) 157.3 MG/DL ALBUMIN, URINE, RANDOM (test code = 73451) 0.6 MG/DL CALC ALBUMIN/CREAT, RND (naz t code = 71827) 4 MG/G Cosmo Martin EzequielCBC W/AUTO [id number] 00:00:00* Test Item Value Reference Range Interpretation [...] ABS NUCLEATED RBCS (test cod e = 96572) 0.00 K/UL Cosmo Martin EzequielHIGH SENSITIVITY [id number] 00:00:00* Test Item Value Reference Range Interpretation Comme nts HIGH SENSITIVITY CRP (test c ode = 39019) 41.5 MG/L Cosmo NievesCCP [id number] 00:00:00* Test Item Value Reference Range Interpretation Comme nts CCP IgG (test code = 76485) <0.5 U/ML Cosmo Martin Jacoby (ANTI-NUCLEAR AB) WITH REFLEX [id number] 00:00:00* Test Item Value Reference Range Interpretation Comme nts ANTI-NUCLEAR ANTIBODIES (naz t code = 3506) NEGATIVE Cosmo Martin EzequielSEDIMENTATION [id number] 00:00:00* Test Item Value Reference Range Interpretation Comme nts SEDIMENTATION RATE (test cod e = 1017) 44 MM/HOUR Cosmo Martin EzequielHEMOGLOBIN [id number] 00:00:00* Test Item Value Reference Range Interpretation Comme nts HEMOGLOBIN A1c (test code = 79184) 7.9 % Cosmo NievesLIPID [id number] 00:00:00* Test Item Value Reference Range Interpretation Comme nts CHOLESTEROL (test code = 2210) 208 MG/DL TRIGLYCERIDES (test code = 2232) 140 MG/DL HDL CHOLESTEROL (test code = 2220) 48 MG/DL CALC LDL CHOL (test code = 2237) 134 MG/DL RISK RATIO LDL/HDL (test cod e = 2238) 2.79 RATIO Cosmo NievesCOMPREHENSIVE METABOLIC [id number] 00:00:00* Test Item Value Reference Range Interpretation Comme nts GLUCOSE (test code = 2217) 143 MG/DL BUN (test code = 2208) 10 MG/DL CREATININE (test code = 2214) 0.60 MG/DL eGFR AMER. (test cod e = 41092) 133 ML/MIN/1.73 eGFR NON- AMER. (test code = 97219) 115 ML/MIN/1.73 CALC BUN/CREAT (test code = [...] (test code = 2219) 34 U/L Cosmo [id number] 00:00:00* Test Item Value Reference Range Interpretation Comme nts TSH, THIRD GENERATION (test code = 2821) 1.940 UIU/ML Cosmo NievesMICROALBUMIN/CREATININE, RANDOM AND [id number] 00:00:00* Test Item Value Reference Range Interpretation Comme nts CREATININE, URINE, CONC. (te st code = 2072) 157.3 MG/DL ALBUMIN, URINE, RANDOM (test code = 92687) 0.6 MG/DL CALC ALBUMIN/CREAT, RND (naz t code = 02202) 4 MG/G Cosmo NievesCBC W/AUTO [id number] 00:00:00* Test Item Value Reference Range Interpretation [...] ABS NUCLEATED RBCS (test cod e = 59906) 0.00 K/UL Cosmo NievesHIGH SENSITIVITY [id number] 00:00:00* Test Item Value Reference Range Interpretation Comme nts HIGH SENSITIVITY CRP (test c ode = 48107) 41.5 MG/L Cosmo NievesCCP [id number] 00:00:00* Test Item Value Reference Range Interpretation Comme nts CCP IgG (test code = 12140) <0.5 U/ML Cosmo NievesGORDO (ANTI-NUCLEAR AB) WITH REFLEX [id number] 00:00:00* Test Item Value Reference Range Interpretation Comme parisa ANTI-NUCLEAR ANTIBODIES (naz t code = 3506) NEGATIVE Cosmo NievesSEDIMENTATION [id number] 00:00:00* Test Item Value Reference Range Interpretation Comme parisa SEDIMENTATION RATE (test cod e = 1017) 44 MM/HOUR Cosmo Martin AustinHEMOGLOBIN [id number] 00:00:00* Test Item Value Reference Range Interpretation Comme parisa HEMOGLOBIN A1c (test code = 23665) 7.9 % Cosmo Martin AustinLIPID [id number] 00:00:00* Test Item Value Reference Range Interpretation Comme nts CHOLESTEROL (test code = 2210) 208 MG/DL TRIGLYCERIDES (test code = 2232) 140 MG/DL HDL CHOLESTEROL (test code = 2220) 48 MG/DL CALC LDL CHOL (test code = 2237) 134 MG/DL RISK RATIO LDL/HDL (test cod e = 2238) 2.79 RATIO Cosmo NievesHEMOGLOBIN [id number] 00:00:00* Test Item Value Reference Range Interpretation Comme parisa HEMOGLOBIN A1c (test code = 12606) 7.9 % COMPREHENSIVE METABOLIC [id number] 00:00:00* Test Item Value Reference Range Interpretation Comme nts GLUCOSE (test code = 2217) 143 MG/DL BUN (test code = 2208) 10 MG/DL CREATININE (test code = 2214) 0.60 MG/DL eGFR AMER. (test cod e = 89454) 133 ML/MIN/1.73 eGFR NON- AMER. (test code = 56102) 115 ML/MIN/1.73 CALC BUN/CREAT (test code = [...] (test code = 2219) 34 U/L Cosmo [id number] 00:00:00* Test Item Value Reference Range Interpretation Comme nts TSH, THIRD GENERATION (test code = 2821) 1.940 UIU/ML Cosmo NievesMICROALBUMIN/CREATININE, RANDOM AND [id number] 00:00:00* Test Item Value Reference Range Interpretation Comme nts CREATININE, URINE, CONC. (te st code = 2072) 157.3 MG/DL ALBUMIN, URINE, RANDOM (test code = 73019) 0.6 MG/DL CALC ALBUMIN/CREAT, RND (naz t code = 78852) 4 MG/G Cosmo NievesCBC W/AUTO [id number] 00:00:00* Test Item Value Reference Range Interpretation [...] ABS NUCLEATED RBCS (test cod e = 02824) 0.00 K/UL Cosmo NievesHIGH SENSITIVITY [id number] 00:00:00* Test Item Value Reference Range Interpretation Comme parisa HIGH SENSITIVITY CRP (test c ode = 94362) 41.5 MG/L Cosmo NievesCCP [id number] 00:00:00* Test Item Value Reference Range Interpretation Comme nts CCP IgG (test code = 25002) <0.5 U/ML Cosmo NievesANA (ANTI-NUCLEAR AB) WITH REFLEX [id number] 00:00:00* Test Item Value Reference Range Interpretation Comme parisa ANTI-NUCLEAR ANTIBODIES (naz t code = 3506) NEGATIVE Cosmo NievesSEDIMENTATION [id number] 00:00:00* Test Item Value Reference Range Interpretation Comme nts SEDIMENTATION RATE (test cod e = 1017) 44 MM/HOUR Cosmo NievesLIPID [id number] 00:00:00* Test Item Value Reference Range Interpretation Comme nts CHOLESTEROL (test code = 2210) 208 MG/DL TRIGLYCERIDES (test code = 2232) 140 MG/DL HDL CHOLESTEROL (test code = 2220) 48 MG/DL CALC LDL CHOL (test code = 2237) 134 MG/DL RISK RATIO LDL/HDL (test cod e = 2238) 2.79 RATIO HEMOGLOBIN [id number] 00:00:00* Test Item Value Reference Range Interpretation Comme parisa HEMOGLOBIN A1c (test code = 41592) 7.9 % Cosmo NievesCOMPREHENSIVE METABOLIC [id number] 00:00:00* Test Item Value Reference Range Interpretation Comme nts GLUCOSE (test code = 2217) 143 MG/DL BUN (test code = 2208) 10 MG/DL CREATININE (test code = 2214) 0.60 MG/DL eGFR AMER. (test cod e = 25594) 133 ML/MIN/1.73 eGFR NON- AMER. (test code = 59239) 115 ML/MIN/1.73 CALC BUN/CREAT (test code = [...] ALT (test code = 2219) 34 U/L LIPID [id number] 00:00:00* Test Item Value Reference Range Interpretation Comme nts CHOLESTEROL (test code = 2210) 208 MG/DL TRIGLYCERIDES (test code = 2232) 140 MG/DL HDL CHOLESTEROL (test code = 2220) 48 MG/DL CALC LDL CHOL (test code = 2237) 134 MG/DL RISK RATIO LDL/HDL (test cod e = 2238) 2.79 RATIO Cosmo F AustinCOMPREHENSIVE METABOLIC [id number] 00:00:00* Test Item Value Reference Range Interpretation Comme nts GLUCOSE (test code = 2217) 143 MG/DL BUN (test code = 8) 10 MG/DL CREATININE (test code = 2214) 0.60 MG/DL eGFR AMER. (test cod e = 59735) 133 ML/MIN/1.73 eGFR NON- AMER. (test code = 54992) 115 ML/MIN/1.73 CALC BUN/CREAT (test code = [...] (test code = 2219) 34 U/L Cosmo [id number] 00:00:00* Test Item Value Reference Range Interpretation Comme nts TSH, THIRD GENERATION (test code = 2821) 1.940 UIU/ML MICROALBUMIN/CREATININE, RANDOM AND [id number] 00:00:00* Test Item Value Reference Range Interpretation Comme nts CREATININE, URINE, CONC. (te st code = 2072) 157.3 MG/DL ALBUMIN, URINE, RANDOM (test code = 32711) 0.6 MG/DL CALC ALBUMIN/CREAT, RND (naz t code = 14624) 4 MG/G [id number] 00:00:00* Test Item Value Reference Range Interpretation Comme nts TSH, THIRD GENERATION (test code = 2821) 1.940 UIU/ML Cosmo NievesCBC W/AUTO [id number] 00:00:00* Test Item Value Reference Range Interpretation [...] ABS NUCLEATED RBCS (test cod e = 52813) 0.00 K/UL MICROALBUMIN/CREATININE, RANDOM AND [id number] 00:00:00* Test Item Value Reference Range Interpretation Comme nts CREATININE, URINE, CONC. (te st code = 2072) 157.3 MG/DL ALBUMIN, URINE, RANDOM (test code = 86442) 0.6 MG/DL CALC ALBUMIN/CREAT, RND (naz t code = 85654) 4 MG/G Cosmo Martin AustinHIGH SENSITIVITY [id number] 00:00:00* Test Item Value Reference Range Interpretation Comme nts HIGH SENSITIVITY CRP (test c ode = 77653) 41.5 MG/L CCP [id number] 00:00:00* Test Item Value Reference Range Interpretation Comme nts CCP IgG (test code = 19721) <0.5 U/ML CBC W/AUTO [id number] 00:00:00* Test Item Value Reference Range Interpretation [...] ABS NUCLEATED RBCS (test cod e = 25171) 0.00 K/UL Cosmo NievesHIGH SENSITIVITY [id number] 00:00:00* Test Item Value Reference Range Interpretation Comme nts HIGH SENSITIVITY CRP (test c ode = 19697) 41.5 MG/L Cosmo NievesANA (ANTI-NUCLEAR AB) WITH REFLEX [id number] 00:00:00* Test Item Value Reference Range Interpretation Comme nts ANTI-NUCLEAR ANTIBODIES (naz t code = 3506) NEGATIVE CCP [id number] 00:00:00* Test Item Value Reference Range Interpretation Comme nts CCP IgG (test code = 67758) <0.5 U/ML Cosmo Martin AustinSEDIMENTATION [id number] 00:00:00* Test Item Value Reference Range Interpretation Comme nts SEDIMENTATION RATE (test cod e = 1017) 44 MM/HOUR GORDO (ANTI-NUCLEAR AB) WITH REFLEX [id number] 00:00:00* Test Item Value Reference Range Interpretation Comme nts ANTI-NUCLEAR ANTIBODIES (naz t code = 3506) NEGATIVE Cosmo Martin AustinSEDIMENTATION [id number] 00:00:00* Test Item Value Reference Range Interpretation Comme nts SEDIMENTATION RATE (test cod e = 1017) 44 MM/HOUR Cosmo NievesHEMOGLOBIN [id number] 00:00:00* Test Item Value Reference Range Interpretation Comme nts HEMOGLOBIN A1c (test code = 81211) 7.9 % HEMOGLOBIN [id number] 00:00:00* Test Item Value Reference Range Interpretation Comme nts HEMOGLOBIN A1c (test code = 59910) 7.9 % Cosmo NievesLIPID [id number] 00:00:00* Test Item Value Reference Range Interpretation Comme nts CHOLESTEROL (test code = 2210) 208 MG/DL TRIGLYCERIDES (test code = 2232) 140 MG/DL HDL CHOLESTEROL (test code = 2220) 48 MG/DL CALC LDL CHOL (test code = 2237) 134 MG/DL RISK RATIO LDL/HDL (test cod e = 2238) 2.79 RATIO COMPREHENSIVE METABOLIC [id number] 00:00:00* Test Item Value Reference Range Interpretation Comme nts GLUCOSE (test code = 2217) 143 MG/DL BUN (test code = 2208) 10 MG/DL CREATININE (test code = 2214) 0.60 MG/DL eGFR AMER. (test cod e = 50701) 133 ML/MIN/1.73 eGFR NON- AMER. (test code = 74723) 115 ML/MIN/1.73 CALC BUN/CREAT (test code = [...] ALT (test code = 2219) 34 U/L [id number] 00:00:00* Test Item Value Reference Range Interpretation Comme nts TSH, THIRD GENERATION (test code = 2821) 1.940 UIU/ML MICROALBUMIN/CREATININE, RANDOM AND [id number] 00:00:00* Test Item Value Reference Range Interpretation Comme nts CREATININE, URINE, CONC. (te st code = 2072) 157.3 MG/DL ALBUMIN, URINE, RANDOM (test code = 25759) 0.6 MG/DL CALC ALBUMIN/CREAT, RND (naz t code = 57586) 4 MG/G CBC W/AUTO [id number] 00:00:00* Test Item Value Reference Range Interpretation [...] ABS NUCLEATED RBCS (test cod e = 84342) 0.00 K/UL HIGH SENSITIVITY [id number] 00:00:00* Test Item Value Reference Range Interpretation Comme nts HIGH SENSITIVITY CRP (test c ode = 36599) 41.5 MG/L CCP [id number] 00:00:00* Test Item Value Reference Range Interpretation Comme nts CCP IgG (test code = 08948) <0.5 U/ML GORDO (ANTI-NUCLEAR AB) WITH REFLEX [id number] 00:00:00* Test Item Value Reference Range Interpretation Comme nts ANTI-NUCLEAR ANTIBODIES (naz t code = 3506) NEGATIVE SEDIMENTATION [id number] 00:00:00* Test Item Value Reference Range Interpretation Comme nts SEDIMENTATION RATE (test cod e = 1017) 44 MM/HOUR US ABDOMEN [id number] 17:05:12HISTORY: Recurrent epigastric abdominal pain. TECHNIQUE: Upper [...] in these organs. Cortex of bothkidneys range [id number] mm and 14 mm. No hydronephrosis, free fluid in theupper abdomen or aortic aneurysm detected. Visualized portions of thepancreas appear normal. Hepatic and portal venous system appear patent,with hepatopetal portal flow noted. Gallbladder has been removed. Common hepatic duct is 4.0 mm. CONCLUSIONS:1. Moderate hepatomegaly with moderate diffuse steatosis.2. S/P cholecystectomy. [facility], Radiant Results Inft User - 12/19/2020 12:06 [...] hepatomegaly with moderate diffuse steatosis.2. S[facility]2020-07-10 00:00:00* Test Item Value Reference Range [...] Comme nts HEMOGLOBIN A1c (test code = 13450) 8.1 % Cosmo Martin AustinHEMOGLOBIN A1c [ADDED]2020-07-09 00:00:00* Test Item Value Reference Range Interpretation Comme nts HEMOGLOBIN A1c (test code = 35897) 8.1 % Cosmo Martin AustinHEMOGLOBIN A1c [ADDED]2020-07-09 00:00:00* Test Item Value Reference Range Interpretation Comme nts HEMOGLOBIN A1c (test code = 13749) 8.1 % HEMOGLOBIN A1c [ADDED]2020-07-09 00:00:00* Test Item Value Reference Range Interpretation Comme nts HEMOGLOBIN A1c (test code = 02910) 8.1 % Cosmo Martin AustinHEMOGLOBIN A1c [ADDED]2020-07-09 00:00:00* Test Item Value Reference Range Interpretation Comme nts HEMOGLOBIN A1c (test code = 18183) 8.1 % Cosmo Martin AustinHEMOGLOBIN A1c [ADDED]2020-07-09 00:00:00* Test Item Value Reference Range Interpretation Comme nts HEMOGLOBIN A1c (test code = 77153) 8.1 % [id number] 00:00:00* Test Item Value Reference Range Interpretation Comme nts TSH, THIRD GENERATION (test code = 2821) 2.590 UIU/ML Cosmo [id number] 00:00:00* Test Item Value Reference Range Interpretation Comme nts TSH, THIRD GENERATION (test code = 2821) 2.590 UIU/ML Cosmo Martin [id number] 00:00:00* Test Item Value Reference Range Interpretation Comme nts TSH, THIRD GENERATION (test code = 2821) 2.590 UIU/ML Cosmo Martin [id number] 00:00:00* Test Item Value Reference Range Interpretation Comme nts TSH, THIRD GENERATION (test code = 2821) 2.590 UIU/ML [id number] 00:00:00* Test Item Value Reference Range Interpretation Comme nts TSH, THIRD GENERATION (test code = 2821) 2.590 UIU/ML Cosmo Martin [id number] 00:00:00* Test Item Value Reference Range Interpretation Comme nts TSH, THIRD GENERATION (test code = 2821) 2.590 UIU/ML LIPID [id number] 00:00:00* Test Item Value Reference Range Interpretation Comme nts CHOLESTEROL (test code = 2210) 161 MG/DL TRIGLYCERIDES (test code = 2232) 162 MG/DL HDL CHOLESTEROL (test code = 2220) 39 MG/DL CALC LDL CHOL (test code = 2237) 96 MG/DL RISK RATIO LDL/HDL (test cod e = 2238) 2.46 RATIO Cosmo NievesCOMPREHENSIVE METABOLIC [id number] 00:00:00* Test Item Value Reference Range Interpretation Comme nts GLUCOSE (test code = 2217) 173 MG/DL BUN (test code = 2208) 8 MG/DL CREATININE (test code = 2214) 0.55 MG/DL eGFR AMER. (test cod e = 75773) 138 ML/MIN/1.73 eGFR NON- AMER. (test code = 56721) 119 ML/MIN/1.73 CALC BUN/CREAT (test code = [...] = 2219) 32 U/L Cosmo NievesCBC W/AUTO [id number] 00:00:00* Test Item Value Reference Range Interpretation [...] code = 1015) 282 K/UL Cosmo NievesLIPID [id number] 00:00:00* Test Item Value Reference Range Interpretation Comme nts CHOLESTEROL (test code = 2210) 161 MG/DL TRIGLYCERIDES (test code = 2232) 162 MG/DL HDL CHOLESTEROL (test code = 2220) 39 MG/DL CALC LDL CHOL (test code = 2237) 96 MG/DL RISK RATIO LDL/HDL (test cod e = 2238) 2.46 RATIO Cosmo NievesCOMPREHENSIVE METABOLIC [id number] 00:00:00* Test Item Value Reference Range Interpretation Comme nts GLUCOSE (test code = 2217) 173 MG/DL BUN (test code = 2208) 8 MG/DL CREATININE (test code = 2214) 0.55 MG/DL eGFR AMER. (test cod e = 71248) 138 ML/MIN/1.73 eGFR NON- AMER. (test code = 48534) 119 ML/MIN/1.73 CALC BUN/CREAT (test code = [...] (test code = 2219) 32 U/L Cosmo Veronica EzequielCBC W/AUTO [id number] 00:00:00* Test Item Value Reference Range Interpretation [...] (test code = 1015) 282 K/UL Cosmo Veronica EzequielLIPID [id number] 00:00:00* Test Item Value Reference Range Interpretation Comme nts CHOLESTEROL (test code = 2210) 161 MG/DL TRIGLYCERIDES (test code = 2232) 162 MG/DL HDL CHOLESTEROL (test code = 2220) 39 MG/DL CALC LDL CHOL (test code = 2237) 96 MG/DL RISK RATIO LDL/HDL (test cod e = 2238) 2.46 RATIO Cosmo NievesCOMPREHENSIVE METABOLIC [id number] 00:00:00* Test Item Value Reference Range Interpretation Comme nts GLUCOSE (test code = 2217) 173 MG/DL BUN (test code = 2208) 8 MG/DL CREATININE (test code = 2214) 0.55 MG/DL eGFR AMER. (test cod e = 72948) 138 ML/MIN/1.73 eGFR NON- AMER. (test code = 66812) 119 ML/MIN/1.73 CALC BUN/CREAT (test code = [...] = 2219) 32 U/L Cosmo NievesCBC W/AUTO [id number] 00:00:00* Test Item Value Reference Range Interpretation [...] COUNT (test code = 1015) 282 K/UL CBC W/AUTO [id number] 00:00:00* Test Item Value Reference Range Interpretation [...] (test code = 1015) 282 K/UL Cosmo Veronica AustinLIPID [id number] 00:00:00* Test Item Value Reference Range Interpretation Comme nts CHOLESTEROL (test code = 2210) 161 MG/DL TRIGLYCERIDES (test code = 2232) 162 MG/DL HDL CHOLESTEROL (test code = 2220) 39 MG/DL CALC LDL CHOL (test code = 2237) 96 MG/DL RISK RATIO LDL/HDL (test cod e = 2238) 2.46 RATIO LIPID [id number] 00:00:00* Test Item Value Reference Range Interpretation Comme nts CHOLESTEROL (test code = 2210) 161 MG/DL TRIGLYCERIDES (test code = 2232) 162 MG/DL HDL CHOLESTEROL (test code = 2220) 39 MG/DL CALC LDL CHOL (test code = 2237) 96 MG/DL RISK RATIO LDL/HDL (test cod e = 2238) 2.46 RATIO Cosmo Martin EzequielCOMPREHENSIVE METABOLIC [id number] 00:00:00* Test Item Value Reference Range Interpretation Comme nts GLUCOSE (test code = 2217) 173 MG/DL BUN (test code = 2208) 8 MG/DL CREATININE (test code = 2214) 0.55 MG/DL eGFR AMER. (test cod e = 60437) 138 ML/MIN/1.73 eGFR NON- AMER. (test code = 23100) 119 ML/MIN/1.73 CALC BUN/CREAT (test code = [...] ALT (test code = 2219) 32 U/L COMPREHENSIVE METABOLIC [id number] 00:00:00* Test Item Value Reference Range Interpretation Comme nts GLUCOSE (test code = 2217) 173 MG/DL BUN (test code = 2208) 8 MG/DL CREATININE (test code = 2214) 0.55 MG/DL eGFR AMER. (test cod e = 65094) 138 ML/MIN/1.73 eGFR NON- AMER. (test code = 40125) 119 ML/MIN/1.73 CALC BUN/CREAT (test code = [...] = 2219) 32 U/L Cosmo NievesCBC W/AUTO [id number] 00:00:00* Test Item Value Reference Range Interpretation [...] COUNT (test code = 1015) 282 K/UL CBC W/AUTO [id number] 00:00:00* Test Item Value Reference Range Interpretation [...] code = 1015) 282 K/UL Cosmo NievesLIPID [id number] 00:00:00* Test Item Value Reference Range Interpretation Comme nts CHOLESTEROL (test code = 2210) 161 MG/DL TRIGLYCERIDES (test code = 2232) 162 MG/DL HDL CHOLESTEROL (test code = 2220) 39 MG/DL CALC LDL CHOL (test code = 2237) 96 MG/DL RISK RATIO LDL/HDL (test cod e = 2238) 2.46 RATIO COMPREHENSIVE METABOLIC [id number] 00:00:00* Test Item Value Reference Range Interpretation Comme nts GLUCOSE (test code = 2217) 173 MG/DL BUN (test code = 2208) 8 MG/DL CREATININE (test code = 2214) 0.55 MG/DL eGFR AMER. (test cod e = 93487) 138 ML/MIN/1.73 eGFR NON- AMER. (test code = 18768) 119 ML/MIN/1.73 CALC BUN/CREAT (test code = [...] ALT (test code = 2219) 32 U/L [id number] 00:00:00* Test Item Value Reference Range Interpretation Comme nts TSH, THIRD GENERATION (test code = 2821) 4.100 UIU/ML Cosmo F [id number] 00:00:00* Test Item Value Reference Range Interpretation Comme nts TSH, THIRD GENERATION (test code = 2821) 4.100 UIU/ML Cosmo F [id number] 00:00:00* Test Item Value Reference Range Interpretation Comme nts TSH, THIRD GENERATION (test code = 2821) 4.100 UIU/ML Cosmo F [id number] 00:00:00* Test Item Value Reference Range Interpretation Comme nts TSH, THIRD GENERATION (test code = 2821) 4.100 UIU/ML [id number] 00:00:00* Test Item Value Reference Range Interpretation Comme nts TSH, THIRD GENERATION (test code = 2821) 4.100 UIU/ML Cosmo [id number] 00:00:00* Test Item Value Reference Range Interpretation Comme nts TSH, THIRD GENERATION (test code = 2821) 4.100 UIU/ML HEMOGLOBIN [id number] 00:00:00* Test Item Value Reference Range Interpretation Comme nts HEMOGLOBIN A1c (test code = 16914) 9.0 % Cosmo NievesCOMPREHENSIVE METABOLIC [id number] 00:00:00* Test Item Value Reference Range Interpretation Comme nts GLUCOSE (test code = 2217) 176 MG/DL BUN (test code = 2208) 8 MG/DL CREATININE (test code = 2214) 0.53 MG/DL eGFR AMER. (test cod e = 67292) 140 ML/MIN/1.73 eGFR NON- AMER. (test code = 86691) 120 ML/MIN/1.73 CALC BUN/CREAT (test code = [...] code = 2219) 35 U/L Cosmo NievesHEMOGLOBIN [id number] 00:00:00* Test Item Value Reference Range Interpretation Comme nts HEMOGLOBIN A1c (test code = 24626) 9.0 % Cosmo NievesCOMPREHENSIVE METABOLIC [id number] 00:00:00* Test Item Value Reference Range Interpretation Comme nts GLUCOSE (test code = 2217) 176 MG/DL BUN (test code = 2208) 8 MG/DL CREATININE (test code = 2214) 0.53 MG/DL eGFR AMER. (test cod e = 36216) 140 ML/MIN/1.73 eGFR NON- AMER. (test code = 70464) 120 ML/MIN/1.73 CALC BUN/CREAT (test code = [...] code = 2219) 35 U/L Cosmo NievesHEMOGLOBIN [id number] 00:00:00* Test Item Value Reference Range Interpretation Comme nts HEMOGLOBIN A1c (test code = 75696) 9.0 % Cosmo NievesCOMPREHENSIVE METABOLIC [id number] 00:00:00* Test Item Value Reference Range Interpretation Comme nts GLUCOSE (test code = 2217) 176 MG/DL BUN (test code = 2208) 8 MG/DL CREATININE (test code = 2214) 0.53 MG/DL eGFR AMER. (test cod e = 95095) 140 ML/MIN/1.73 eGFR NON- AMER. (test code = 46291) 120 ML/MIN/1.73 CALC BUN/CREAT (test code = [...] (test code = 2219) 35 U/L HEMOGLOBIN [id number] 00:00:00* Test Item Value Reference Range Interpretation Comme nts HEMOGLOBIN A1c (test code = 46938) 9.0 % COMPREHENSIVE METABOLIC [id number] 00:00:00* Test Item Value Reference Range Interpretation Comme nts GLUCOSE (test code = 2217) 176 MG/DL BUN (test code = 2208) 8 MG/DL CREATININE (test code = 2214) 0.53 MG/DL eGFR AMER. (test cod e = 99772) 140 ML/MIN/1.73 eGFR NON- AMER. (test code = 47724) 120 ML/MIN/1.73 CALC BUN/CREAT (test code = [...] = 2219) 35 U/L Cosmo Martin AustinHEMOGLOBIN [id number] 00:00:00* Test Item Value Reference Range Interpretation Comme nts HEMOGLOBIN A1c (test code = 29357) 9.0 % Cosmo NievesCOMPREHENSIVE METABOLIC [id number] 00:00:00* Test Item Value Reference Range Interpretation Comme nts GLUCOSE (test code = 2217) 176 MG/DL BUN (test code = 2208) 8 MG/DL CREATININE (test code = 2214) 0.53 MG/DL eGFR AMER. (test cod e = 72637) 140 ML/MIN/1.73 eGFR NON- AMER. (test code = 68969) 120 ML/MIN/1.73 CALC BUN/CREAT (test code = [...] = 2219) 35 U/L Cosmo NievesCOMPREHENSIVE METABOLIC [id number] 00:00:00* Test Item Value Reference Range Interpretation Comme nts GLUCOSE (test code = 2217) 176 MG/DL BUN (test code = 2208) 8 MG/DL CREATININE (test code = 2214) 0.53 MG/DL eGFR AMER. (test cod e = 30641) 140 ML/MIN/1.73 eGFR NON- AMER. (test code = 93124) 120 ML/MIN/1.73 CALC BUN/CREAT (test code = [...] (test code = 2219) 35 U/L HEMOGLOBIN [id number] 00:00:00* Test Item Value Reference Range Interpretation Comme nts HEMOGLOBIN A1c (test code = 84569) 9.0 % LIPID PANEL (REFL)2019-06-20 00:00:00* Test Item Value Reference Range Interpretation Comme nts CHOLESTEROL, TOTAL (test cod e = 3-3) 192 mg/dL HDL CHOLESTEROL (test code = 2085-9) 51 mg/dL TRIGLYCERIDES (test code = 2571-8) 221 mg/dL LDL-CHOLESTEROL (test code = 35903-6) 108 mg/dL(calc) CHOL/HDLC RATIO (test code = 9830-1) 3.8 (calc) NON HDL CHOLESTEROL (test code = 64122-9) 141 mg/dL(calc) Cosmo Martin EvadaleCOMPREHENSIVE METABOLIC [id number] 00:00:00* Test Item Value Reference Range Interpretation Comme nts GLUCOSE (test code = 2345-7) 194 mg/dL UREA NITROGEN (BUN) (test code = 3094-0) 10 mg/dL CREATININE (test code = 2160-0) 0.61 mg/dL eGFR NON-AFR. [place] (test code = 28051-9) 116 mL/min/1.73m2 eGFR (test code = 45105-4) 134 mL/min/1.73m2 BUN/CREATININE RATIO (test code = 3097-3) NOT APPLICABLE (calc) SODIUM (test code = 2951-2) 135 mmol/L POTASSIUM (test code = 2823-3) 4.0 mmol/L CHLORIDE (test code = 2075-0) 97 mmol/L CARBON DIOXIDE (test code = 2027-9) 26 mmol/L CALCIUM (test code = 30904-5) 9.5 mg/dL PROTEIN, TOTAL (test code = 2885-2) 6.7 g/dL ALBUMIN (test code = 1751-7) 4.0 g/dL GLOBULIN (test code = 42775-2) 2.7 g/dL(calc) ALBUMIN/GLOBULIN RATIO (test code = 1759-0) 1.5 (calc) BILIRUBIN, TOTAL (test code = 1975-2) 0.4 mg/dL ALKALINE PHOSPHATASE (test code = 6768-6) 76 U/L AST (test code = 1920-8) 35 U/L ALT (test code = 1742-6) 39 U/L Cosmo [id number] 00:00:00* Test Item Value Reference Range Interpretation Comme parisa TSH (test code = 3016-3) 2.16 mIU/L Cosmo NievesHEMOGLOBIN [id number] 00:00:00* Test Item Value Reference Range Interpretation Comme [facility] HEMOGLOBIN A1c (test code = 4548-4) 10.2 %oftotalHgb Cosmo NievesCBC (INCLUDES DIFF/PLT)2019-06-20 00:00:00* Test Item Value Reference Range Interpretation Comme [facility] WHITE BLOOD CELL COUNT (test code [...] cells/uL ABSOLUTE BAND NEUTROPHILS (test code = 56913-0) DNR cells/uL ABSOLUTE METAMYELOCYTES (test code = 36413-2) DNR cells/uL ABSOLUTE MYELOCYTES (test code = 74420-5) DNR cells/uL ABSOLUTE PROMYELOCYTES (test code = 92427-3) DNR cells/uL ABSOLUTE LYMPHOCYTES (test code = 731-0) 2290 cells/uL ABSOLUTE MONOCYTES (test code = 742-7) 524 cells/uL ABSOLUTE EOSINOPHILS (test code = 711-2) 364 cells/uL ABSOLUTE BASOPHILS (test code = 704-7) 64 cells/uL ABSOLUTE BLASTS (test code = 20482-5) DNR cells/uL ABSOLUTE NUCLEATED RBC (test code = 43280-4) DNR cells/uL NEUTROPHILS (test code = 770-8) 69.7 % BAND NEUTROPHILS (test code = 764-1) DNR % METAMYELOCYTES (test code = 740-1) DNR % MYELOCYTES (test code = 749-2) DNR % PROMYELOCYTES (test code = 783-1) DNR % LYMPHOCYTES (test code = 736-9) 21.4 % REACTIVE LYMPHOCYTES (test code = 37353-8) DNR % MONOCYTES (test code = 5905-5) 4.9 % EOSINOPHILS (test code = 713-8) 3.4 % BASOPHILS (test code = 706-2) 0.6 % BLASTS (test code = 709-6) DNR % NUCLEATED RBC (test code = 14565-3) DNR /100WBC Cosmo Martin EvadaleLIPID PANEL (REFL)2019-06-20 00:00:00* Test Item Value Reference Range Interpretation Comme nts CHOLESTEROL, TOTAL (test cod e = 2093-3) 192 mg/dL HDL CHOLESTEROL (test code = 2085-9) 51 mg/dL TRIGLYCERIDES (test code = 2571-8) 221 mg/dL LDL-CHOLESTEROL (test code = 51364-2) 108 mg/dL(calc) CHOL/HDLC RATIO (test code = 9830-1) 3.8 (calc) NON HDL CHOLESTEROL (test code = 16299-6) 141 mg/dL(calc) Cosmo NievesCOMPREHENSIVE METABOLIC [id number] 00:00:00* Test Item Value Reference Range Interpretation Comme nts GLUCOSE (test code = 2345-7) 194 mg/dL UREA NITROGEN (BUN) (test code = 3094-0) 10 mg/dL CREATININE (test code = 2160-0) 0.61 mg/dL eGFR NON-AFR. [place] (test code = 92383-6) 116 mL/min/1.73m2 eGFR (test code = 05466-0) 134 mL/min/1.73m2 BUN/CREATININE RATIO (test code = 3097-3) NOT APPLICABLE (calc) SODIUM (test code = 2951-2) 135 mmol/L POTASSIUM (test code = 2823-3) 4.0 mmol/L CHLORIDE (test code = 2075-0) 97 mmol/L CARBON DIOXIDE (test code = 2027-9) 26 mmol/L CALCIUM (test code = 49097-9) 9.5 mg/dL PROTEIN, TOTAL (test code = 2885-2) 6.7 g/dL ALBUMIN (test code = 1751-7) 4.0 g/dL GLOBULIN (test code = 67418-9) 2.7 g/dL(calc) ALBUMIN/GLOBULIN RATIO (test code = 1759-0) 1.5 (calc) BILIRUBIN, TOTAL (test code = 1975-2) 0.4 mg/dL ALKALINE PHOSPHATASE (test code = 6768-6) 76 U/L AST (test code = 1920-8) 35 U/L ALT (test code = 1742-6) 39 U/L Cosmo [id number] 00:00:00* Test Item Value Reference Range Interpretation Comme [facility] TSH (test code = 3016-3) 2.16 mIU/L Cosmo NievesHEMOGLOBIN [id number] 00:00:00* Test Item Value Reference Range Interpretation Comme [facility] HEMOGLOBIN A1c (test code = 4548-4) 10.2 %oftotalHgb Cosmo NievesCBC (INCLUDES DIFF/PLT)2019-06-20 00:00:00* Test Item Value Reference Range Interpretation Comme [facility] WHITE BLOOD CELL COUNT (test code [...] cells/uL ABSOLUTE BAND NEUTROPHILS (test code = 58141-7) DNR cells/uL ABSOLUTE METAMYELOCYTES (test code = 77807-1) DNR cells/uL ABSOLUTE MYELOCYTES (test code = 01960-6) DNR cells/uL ABSOLUTE PROMYELOCYTES (test code = 31398-6) DNR cells/uL ABSOLUTE LYMPHOCYTES (test code = 731-0) 2290 cells/uL ABSOLUTE MONOCYTES (test code = 742-7) 524 cells/uL ABSOLUTE EOSINOPHILS (test code = 711-2) 364 cells/uL ABSOLUTE BASOPHILS (test code = 704-7) 64 cells/uL ABSOLUTE BLASTS (test code = 88818-5) DNR cells/uL ABSOLUTE NUCLEATED RBC (test code = 72664-1) DNR cells/uL NEUTROPHILS (test code = 770-8) 69.7 % BAND NEUTROPHILS (test code = 764-1) DNR % METAMYELOCYTES (test code = 740-1) DNR % MYELOCYTES (test code = 749-2) DNR % PROMYELOCYTES (test code = 783-1) DNR % LYMPHOCYTES (test code = 736-9) 21.4 % REACTIVE LYMPHOCYTES (test code = 26177-8) DNR % MONOCYTES (test code = 5905-5) 4.9 % EOSINOPHILS (test code = 713-8) 3.4 % BASOPHILS (test code = 706-2) 0.6 % BLASTS (test code = 709-6) DNR % NUCLEATED RBC (test code = 34281-0) DNR /100WBC Cosmo Martin AustinLIPID PANEL (REFL)2019-06-20 00:00:00* Test Item Value Reference Range Interpretation Comme nts CHOLESTEROL, TOTAL (test cod e = 2093-3) 192 mg/dL HDL CHOLESTEROL (test code = 2085-9) 51 mg/dL TRIGLYCERIDES (test code = 2571-8) 221 mg/dL LDL-CHOLESTEROL (test code = 05938-5) 108 mg/dL(calc) CHOL/HDLC RATIO (test code = 9830-1) 3.8 (calc) NON HDL CHOLESTEROL (test code = 03632-6) 141 mg/dL(calc) Cosmo NievesCOMPREHENSIVE METABOLIC [id number] 00:00:00* Test Item Value Reference Range Interpretation Comme nts GLUCOSE (test code = 2345-7) 194 mg/dL UREA NITROGEN (BUN) (test code = 3094-0) 10 mg/dL CREATININE (test code = 2160-0) 0.61 mg/dL eGFR NON-AFR. [place] (test code = 49456-0) 116 mL/min/1.73m2 eGFR (test code = 41555-1) 134 mL/min/1.73m2 BUN/CREATININE RATIO (test code = 3097-3) NOT APPLICABLE (calc) SODIUM (test code = 2951-2) 135 mmol/L POTASSIUM (test code = 2823-3) 4.0 mmol/L CHLORIDE (test code = 2075-0) 97 mmol/L CARBON DIOXIDE (test code = 2027-9) 26 mmol/L CALCIUM (test code = 83038-0) 9.5 mg/dL PROTEIN, TOTAL (test code = 2885-2) 6.7 g/dL ALBUMIN (test code = 1751-7) 4.0 g/dL GLOBULIN (test code = 63301-9) 2.7 g/dL(calc) ALBUMIN/GLOBULIN RATIO (test code = 1759-0) 1.5 (calc) BILIRUBIN, TOTAL (test code = 1975-2) 0.4 mg/dL ALKALINE PHOSPHATASE (test code = 6768-6) 76 U/L AST (test code = 1920-8) 35 U/L ALT (test code = 1742-6) 39 U/L Cosmo [id number] 00:00:00* Test Item Value Reference Range Interpretation Comme parisa TSH (test code = 3016-3) 2.16 mIU/L Cosmo NievesHEMOGLOBIN [id number] 00:00:00* Test Item Value Reference Range Interpretation [...] cells/uL ABSOLUTE BAND NEUTROPHILS (test code = 53203-7) DNR cells/uL ABSOLUTE METAMYELOCYTES (test code = 67056-4) DNR cells/uL ABSOLUTE MYELOCYTES (test code = 12987-4) DNR cells/uL ABSOLUTE PROMYELOCYTES (test code = 05206-3) DNR cells/uL ABSOLUTE LYMPHOCYTES (test code = 731-0) 2290 cells/uL ABSOLUTE MONOCYTES (test code = 742-7) 524 cells/uL ABSOLUTE EOSINOPHILS (test code = 711-2) 364 cells/uL ABSOLUTE BASOPHILS (test code = 704-7) 64 cells/uL ABSOLUTE BLASTS (test code = 45724-3) DNR cells/uL ABSOLUTE NUCLEATED RBC (test code = 16708-2) DNR cells/uL NEUTROPHILS (test code = 770-8) 69.7 % BAND NEUTROPHILS (test code = 764-1) DNR % METAMYELOCYTES (test code = 740-1) DNR % MYELOCYTES (test code = 749-2) DNR % PROMYELOCYTES (test code = 783-1) DNR % LYMPHOCYTES (test code = 736-9) 21.4 % REACTIVE LYMPHOCYTES (test code = 34349-2) DNR % MONOCYTES (test code = 5905-5) 4.9 % EOSINOPHILS (test code = 713-8) 3.4 % BASOPHILS (test code = 706-2) 0.6 % BLASTS (test code = 709-6) DNR % NUCLEATED RBC (test code = 26117-8) DNR /100WBC COMMENT(S) (test code = 8251-1) CBC (INCLUDES DIFF/PLT)2019-06-20 00:00:00* Test Item Value [...] cells/uL ABSOLUTE BAND NEUTROPHILS (test code = 50029-4) DNR cells/uL ABSOLUTE METAMYELOCYTES (test code = 25068-7) DNR cells/uL ABSOLUTE MYELOCYTES (test code = 07329-0) DNR cells/uL ABSOLUTE PROMYELOCYTES (test code = 97032-9) DNR cells/uL ABSOLUTE LYMPHOCYTES (test code = 731-0) 2290 cells/uL ABSOLUTE MONOCYTES (test code = 742-7) 524 cells/uL ABSOLUTE EOSINOPHILS (test code = 711-2) 364 cells/uL ABSOLUTE BASOPHILS (test code = 704-7) 64 cells/uL ABSOLUTE BLASTS (test code = 76459-3) DNR cells/uL ABSOLUTE NUCLEATED RBC (test code = 22726-8) DNR cells/uL NEUTROPHILS (test code = 770-8) 69.7 % BAND NEUTROPHILS (test code = 764-1) DNR % METAMYELOCYTES (test code = 740-1) DNR % MYELOCYTES (test code = 749-2) DNR % PROMYELOCYTES (test code = 783-1) DNR % LYMPHOCYTES (test code = 736-9) 21.4 % REACTIVE LYMPHOCYTES (test code = 70458-3) DNR % MONOCYTES (test code = 5905-5) 4.9 % EOSINOPHILS (test code = 713-8) 3.4 % BASOPHILS (test code = 706-2) 0.6 % BLASTS (test code = 709-6) DNR % NUCLEATED RBC (test code = 72686-4) DNR /100WBC Cosmo Martin AustinLIPID PANEL (REFL)2019-06-20 00:00:00* Test Item Value Reference Range Interpretation Comme nts CHOLESTEROL, TOTAL (test cod e = 2093-3) 192 mg/dL HDL CHOLESTEROL (test code = 2085-9) 51 mg/dL TRIGLYCERIDES (test code = 2571-8) 221 mg/dL LDL-CHOLESTEROL (test code = 84697-7) 108 mg/dL(calc) CHOL/HDLC RATIO (test code = 9830-1) 3.8 (calc) NON HDL CHOLESTEROL (test code = 22568-5) 141 mg/dL(calc) COMPREHENSIVE METABOLIC [id number] 00:00:00* Test Item Value Reference Range Interpretation Comme nts GLUCOSE (test code = 2345-7) 194 mg/dL UREA NITROGEN (BUN) (test code = 3094-0) 10 mg/dL CREATININE (test code = 2160-0) 0.61 mg/dL eGFR NON-AFR. [place] (test code = 56369-0) 116 mL/min/1.73m2 eGFR (test code = 59954-8) 134 mL/min/1.73m2 BUN/CREATININE RATIO (test code = 3097-3) NOT APPLICABLE (calc) SODIUM (test code = 2951-2) 135 mmol/L POTASSIUM (test code = 2823-3) 4.0 mmol/L CHLORIDE (test code = 2075-0) 97 mmol/L CARBON DIOXIDE (test code = 2027-9) 26 mmol/L CALCIUM (test code = 44650-3) 9.5 mg/dL PROTEIN, TOTAL (test code = 2885-2) 6.7 g/dL ALBUMIN (test code = 1751-7) 4.0 g/dL GLOBULIN (test code = 43946-6) 2.7 g/dL(calc) ALBUMIN/GLOBULIN RATIO (test code = 1759-0) 1.5 (calc) BILIRUBIN, TOTAL (test code = 1975-2) 0.4 mg/dL ALKALINE PHOSPHATASE (test code = 6768-6) 76 U/L AST (test code = 1920-8) 35 U/L ALT (test code = 1742-6) 39 U/L LIPID PANEL (REFL)2019-06-20 00:00:00* Test Item Value Reference Range Interpretation Comme nts CHOLESTEROL, TOTAL (test cod e = 2093-3) 192 mg/dL HDL CHOLESTEROL (test code = 2085-9) 51 mg/dL TRIGLYCERIDES (test code = 2571-8) 221 mg/dL LDL-CHOLESTEROL (test code = 02631-3) 108 mg/dL(calc) CHOL/HDLC RATIO (test code = 9830-1) 3.8 (calc) NON HDL CHOLESTEROL (test code = 15780-4) 141 mg/dL(calc) Cosmo NievesCOMPREHENSIVE METABOLIC [id number] 00:00:00* Test Item Value Reference Range Interpretation Comme nts GLUCOSE (test code = 2345-7) 194 mg/dL UREA NITROGEN (BUN) (test code = 3094-0) 10 mg/dL CREATININE (test code = 2160-0) 0.61 mg/dL eGFR NON-AFR. [place] (test code = 79730-3) 116 mL/min/1.73m2 eGFR (test code = 59892-6) 134 mL/min/1.73m2 BUN/CREATININE RATIO (test code = 3097-3) NOT APPLICABLE (calc) SODIUM (test code = 2951-2) 135 mmol/L POTASSIUM (test code = 2823-3) 4.0 mmol/L CHLORIDE (test code = 2075-0) 97 mmol/L CARBON DIOXIDE (test code = 2027-9) 26 mmol/L CALCIUM (test code = 41737-2) 9.5 mg/dL PROTEIN, TOTAL (test code = 2885-2) 6.7 g/dL ALBUMIN (test code = 1751-7) 4.0 g/dL GLOBULIN (test code = 86089-8) 2.7 g/dL(calc) ALBUMIN/GLOBULIN RATIO (test code = 1759-0) 1.5 (calc) BILIRUBIN, TOTAL (test code = 1975-2) 0.4 mg/dL ALKALINE PHOSPHATASE (test code = 6768-6) 76 U/L AST (test code = 1920-8) 35 U/L ALT (test code = 1742-6) 39 U/L Cosmo [id number] 00:00:00* Test Item Value Reference Range Interpretation Comme nts TSH (test code = 3016-3) 2.16 mIU/L HEMOGLOBIN [id number] 00:00:00* Test Item Value Reference Range Interpretation Comme nts HEMOGLOBIN A1c (test code = 4548-4) 10.2 %oftotalHgb [id number] 00:00:00* Test Item Value Reference Range Interpretation Comme nts TSH (test code = 3016-3) 2.16 mIU/L Cosmo Martin AustinHEMOGLOBIN [id number] 00:00:00* Test Item Value Reference Range Interpretation Comme nts HEMOGLOBIN A1c (test code = 4548-4) 10.2 %oftotalHgb Cosmo Martin AustinCBC (INCLUDES DIFF/PLT)2019-06-20 00:00:00* Test Item Value Reference [...] cells/uL ABSOLUTE BAND NEUTROPHILS (test code = 76500-7) DNR cells/uL ABSOLUTE METAMYELOCYTES (test code = 94317-4) DNR cells/uL ABSOLUTE MYELOCYTES (test code = 39654-7) DNR cells/uL ABSOLUTE PROMYELOCYTES (test code = 53316-6) DNR cells/uL ABSOLUTE LYMPHOCYTES (test code = 731-0) 2290 cells/uL ABSOLUTE MONOCYTES (test code = 742-7) 524 cells/uL ABSOLUTE EOSINOPHILS (test code = 711-2) 364 cells/uL ABSOLUTE BASOPHILS (test code = 704-7) 64 cells/uL ABSOLUTE BLASTS (test code = 62652-8) DNR cells/uL ABSOLUTE NUCLEATED RBC (test code = 53722-0) DNR cells/uL NEUTROPHILS (test code = 770-8) 69.7 % BAND NEUTROPHILS (test code = 764-1) DNR % METAMYELOCYTES (test code = 740-1) DNR % MYELOCYTES (test code = 749-2) DNR % PROMYELOCYTES (test code = 783-1) DNR % LYMPHOCYTES (test code = 736-9) 21.4 % REACTIVE LYMPHOCYTES (test code = 47609-2) DNR % MONOCYTES (test code = 5905-5) 4.9 % EOSINOPHILS (test code = 713-8) 3.4 % BASOPHILS (test code = 706-2) 0.6 % BLASTS (test code = 709-6) DNR % NUCLEATED RBC (test code = 48820-3) DNR /100WBC COMMENT(S) (test code = 8251-1) CBC (INCLUDES DIFF/PLT)2019-06-20 00:00:00* Test Item Value [...] cells/uL ABSOLUTE BAND NEUTROPHILS (test code = 64517-3) DNR cells/uL ABSOLUTE METAMYELOCYTES (test code = 58547-5) DNR cells/uL ABSOLUTE MYELOCYTES (test code = 19352-6) DNR cells/uL ABSOLUTE PROMYELOCYTES (test code = 87127-6) DNR cells/uL ABSOLUTE LYMPHOCYTES (test code = 731-0) 2290 cells/uL ABSOLUTE MONOCYTES (test code = 742-7) 524 cells/uL ABSOLUTE EOSINOPHILS (test code = 711-2) 364 cells/uL ABSOLUTE BASOPHILS (test code = 704-7) 64 cells/uL ABSOLUTE BLASTS (test code = 20081-9) DNR cells/uL ABSOLUTE NUCLEATED RBC (test code = 68550-6) DNR cells/uL NEUTROPHILS (test code = 770-8) 69.7 % BAND NEUTROPHILS (test code = 764-1) DNR % METAMYELOCYTES (test code = 740-1) DNR % MYELOCYTES (test code = 749-2) DNR % PROMYELOCYTES (test code = 783-1) DNR % LYMPHOCYTES (test code = 736-9) 21.4 % REACTIVE LYMPHOCYTES (test code = 22727-2) DNR % MONOCYTES (test code = 5905-5) 4.9 % EOSINOPHILS (test code = 713-8) 3.4 % BASOPHILS (test code = 706-2) 0.6 % BLASTS (test code = 709-6) DNR % NUCLEATED RBC (test code = 89083-7) DNR /100WBC Cosmo F AustinLIPID PANEL (REFL)2019-06-20 00:00:00* Test Item Value Reference Range Interpretation Comme nts CHOLESTEROL, TOTAL (test cod e = 2093-3) 192 mg/dL HDL CHOLESTEROL (test code = 2085-9) 51 mg/dL TRIGLYCERIDES (test code = 2571-8) 221 mg/dL LDL-CHOLESTEROL (test code = 45412-7) 108 mg/dL(calc) CHOL/HDLC RATIO (test code = 9830-1) 3.8 (calc) NON HDL CHOLESTEROL (test code = 23482-4) 141 mg/dL(calc) COMPREHENSIVE METABOLIC [id number] 00:00:00* Test Item Value Reference Range Interpretation Comme nts GLUCOSE (test code = 2345-7) 194 mg/dL UREA NITROGEN (BUN) (test code = 3094-0) 10 mg/dL CREATININE (test code = 2160-0) 0.61 mg/dL eGFR NON-AFR. [place] (test code = 46467-2) 116 mL/min/1.73m2 eGFR (test code = 86571-2) 134 mL/min/1.73m2 BUN/CREATININE RATIO (test code = 3097-3) NOT APPLICABLE (calc) SODIUM (test code = 2951-2) 135 mmol/L POTASSIUM (test code = 2823-3) 4.0 mmol/L CHLORIDE (test code = 2075-0) 97 mmol/L CARBON DIOXIDE (test code = 2027-9) 26 mmol/L CALCIUM (test code = 48530-2) 9.5 mg/dL PROTEIN, TOTAL (test code = 2885-2) 6.7 g/dL ALBUMIN (test code = 1751-7) 4.0 g/dL GLOBULIN (test code = 85622-2) 2.7 g/dL(calc) ALBUMIN/GLOBULIN RATIO (test code = 1759-0) 1.5 (calc) BILIRUBIN, TOTAL (test code = 1975-2) 0.4 mg/dL ALKALINE PHOSPHATASE (test code = 6768-6) 76 U/L AST (test code = 1920-8) 35 U/L ALT (test code = 1742-6) 39 U/L [id number] 00:00:00* Test Item Value Reference Range Interpretation Comme nts TSH (test code = 3016-3) 2.16 mIU/L HEMOGLOBIN [id number] 00:00:00* Test Item Value Reference Range Interpretation Comme nts HEMOGLOBIN A1c (test code = 4548-4) 10.2 %oftotalHgb HEMOGLOBIN [id number] 00:00:00* Test Item Value Reference Range Interpretation Comme nts HEMOGLOBIN A1c (test code = 48924) 9.5 % Cosmo Martin AustinLIPID [id number] 00:00:00* Test Item Value Reference Range Interpretation Comme nts CHOLESTEROL (test code = 2210) 208 MG/DL TRIGLYCERIDES (test code = 2232) 192 MG/DL HDL CHOLESTEROL (test code = 2220) 48 MG/DL CALC LDL CHOL (test code = 2237) 122 MG/DL RISK RATIO LDL/HDL (test cod e = 2238) 2.53 RATIO Cosmo F EzequielCOMPREHENSIVE METABOLIC [id number] 00:00:00* Test Item Value Reference Range Interpretation Comme nts GLUCOSE (test code = 2217) 236 MG/DL BUN (test code = 2208) 8 MG/DL CREATININE (test code = 2214) 0.67 MG/DL eGFR AMER. (test cod e = 60855) 130 ML/MIN/1.73 eGFR NON- AMER. (test code = 35259) 112 ML/MIN/1.73 CALC BUN/CREAT (test code = [...] (test code = 2219) 62 U/L Cosmo [id number] 00:00:00* Test Item Value Reference Range Interpretation Comme nts TSH, THIRD GENERATION (test code = 2821) 1.550 UIU/ML Cosmo NievesCBC W/AUTO [id number] 00:00:00* Test Item Value Reference Range Interpretation [...] code = 1015) 304 K/UL Cosmo NievesHEMOGLOBIN [id number] 00:00:00* Test Item Value Reference Range Interpretation Comme parisa HEMOGLOBIN A1c (test code = 68174) 9.5 % Cosmo NievesLIPID [id number] 00:00:00* Test Item Value Reference Range Interpretation Comme nts CHOLESTEROL (test code = 2210) 208 MG/DL TRIGLYCERIDES (test code = 2232) 192 MG/DL HDL CHOLESTEROL (test code = 2220) 48 MG/DL CALC LDL CHOL (test code = 2237) 122 MG/DL RISK RATIO LDL/HDL (test cod e = 2238) 2.53 RATIO Cosmo NievesCOMPREHENSIVE METABOLIC [id number] 00:00:00* Test Item Value Reference Range Interpretation Comme nts GLUCOSE (test code = 2217) 236 MG/DL BUN (test code = 2208) 8 MG/DL CREATININE (test code = 2214) 0.67 MG/DL eGFR AMER. (test cod e = 14845) 130 ML/MIN/1.73 eGFR NON- AMER. (test code = 64536) 112 ML/MIN/1.73 CALC BUN/CREAT (test code = [...] (test code = 2219) 62 U/L Cosmo [id number] 00:00:00* Test Item Value Reference Range Interpretation Comme nts TSH, THIRD GENERATION (test code = 2821) 1.550 UIU/ML Cosmo NievesCBC W/AUTO [id number] 00:00:00* Test Item Value Reference Range Interpretation [...] code = 1015) 304 K/UL Cosmo NievesHEMOGLOBIN [id number] 00:00:00* Test Item Value Reference Range Interpretation Comme nts HEMOGLOBIN A1c (test code = 98593) 9.5 % Cosmo Martin [facility] W/AUTO [id number] 00:00:00* Test Item Value Reference Range Interpretation [...] (test code = 1015) 304 K/UL LIPID [id number] 00:00:00* Test Item Value Reference Range Interpretation Comme nts CHOLESTEROL (test code = 2210) 208 MG/DL TRIGLYCERIDES (test code = 2232) 192 MG/DL HDL CHOLESTEROL (test code = 2220) 48 MG/DL CALC LDL CHOL (test code = 2237) 122 MG/DL RISK RATIO LDL/HDL (test cod e = 2238) 2.53 RATIO Cosmo NievesCOMPREHENSIVE METABOLIC [id number] 00:00:00* Test Item Value Reference Range Interpretation Comme nts GLUCOSE (test code = 2217) 236 MG/DL BUN (test code = 2208) 8 MG/DL CREATININE (test code = 2214) 0.67 MG/DL eGFR AMER. (test cod e = 19346) 130 ML/MIN/1.73 eGFR NON- AMER. (test code = 49101) 112 ML/MIN/1.73 CALC BUN/CREAT (test code = [...] (test code = 2219) 62 U/L Cosmo [id number] 00:00:00* Test Item Value Reference Range Interpretation Comme parisa TSH, THIRD GENERATION (test code = 2821) 1.550 UIU/ML Cosmo NievesHEMOGLOBIN [id number] 00:00:00* Test Item Value Reference Range Interpretation Comme parisa HEMOGLOBIN A1c (test code = 49382) 9.5 % CBC W/AUTO [id number] 00:00:00* Test Item Value Reference Range Interpretation [...] code = 1015) 304 K/UL Cosmo NievesHEMOGLOBIN [id number] 00:00:00* Test Item Value Reference Range Interpretation Comme nts HEMOGLOBIN A1c (test code = 46696) 9.5 % Cosmo NievesLIPID [id number] 00:00:00* Test Item Value Reference Range Interpretation Comme nts CHOLESTEROL (test code = 2210) 208 MG/DL TRIGLYCERIDES (test code = 2232) 192 MG/DL HDL CHOLESTEROL (test code = 2220) 48 MG/DL CALC LDL CHOL (test code = 2237) 122 MG/DL RISK RATIO LDL/HDL (test cod e = 2238) 2.53 RATIO COMPREHENSIVE METABOLIC [id number] 00:00:00* Test Item Value Reference Range Interpretation Comme nts GLUCOSE (test code = 2217) 236 MG/DL BUN (test code = 2208) 8 MG/DL CREATININE (test code = 2214) 0.67 MG/DL eGFR AMER. (test cod e = 60176) 130 ML/MIN/1.73 eGFR NON- AMER. (test code = 27664) 112 ML/MIN/1.73 CALC BUN/CREAT (test code = [...] ALT (test code = 2219) 62 U/L LIPID [id number] 00:00:00* Test Item Value Reference Range Interpretation Comme nts CHOLESTEROL (test code = 2210) 208 MG/DL TRIGLYCERIDES (test code = 2232) 192 MG/DL HDL CHOLESTEROL (test code = 2220) 48 MG/DL CALC LDL CHOL (test code = 2237) 122 MG/DL RISK RATIO LDL/HDL (test cod e = 2238) 2.53 RATIO Cosmo NievesCOMPREHENSIVE METABOLIC [id number] 00:00:00* Test Item Value Reference Range Interpretation Comme nts GLUCOSE (test code = 2217) 236 MG/DL BUN (test code = 2208) 8 MG/DL CREATININE (test code = 2214) 0.67 MG/DL eGFR AMER. (test cod e = 13619) 130 ML/MIN/1.73 eGFR NON- AMER. (test code = 01735) 112 ML/MIN/1.73 CALC BUN/CREAT (test code = [...] (test code = 2219) 62 U/L Cosmo Martin [id number] 00:00:00* Test Item Value Reference Range Interpretation Comme nts TSH, THIRD GENERATION (test code = 2821) 1.550 UIU/ML [id number] 00:00:00* Test Item Value Reference Range Interpretation Comme nts TSH, THIRD GENERATION (test code = 2821) 1.550 UIU/ML Cosmo NievesCBC W/AUTO [id number] 00:00:00* Test Item Value Reference Range Interpretation [...] (test code = 1015) 304 K/UL Cosmo NievesCBC W/AUTO [id number] 00:00:00* Test Item Value Reference Range Interpretation [...] (test code = 1015) 304 K/UL HEMOGLOBIN [id number] 00:00:00* Test Item Value Reference Range Interpretation Comme nts HEMOGLOBIN A1c (test code = 57669) 9.5 % LIPID [id number] 00:00:00* Test Item Value Reference Range Interpretation Comme nts CHOLESTEROL (test code = 2210) 208 MG/DL TRIGLYCERIDES (test code = 2232) 192 MG/DL HDL CHOLESTEROL (test code = 2220) 48 MG/DL CALC LDL CHOL (test code = 2237) 122 MG/DL RISK RATIO LDL/HDL (test cod e = 2238) 2.53 RATIO COMPREHENSIVE METABOLIC [id number] 00:00:00* Test Item Value Reference Range Interpretation Comme nts GLUCOSE (test code = 2217) 236 MG/DL BUN (test code = 2208) 8 MG/DL CREATININE (test code = 2214) 0.67 MG/DL eGFR AMER. (test cod e = 77469) 130 ML/MIN/1.73 eGFR NON- AMER. (test code = 61907) 112 ML/MIN/1.73 CALC BUN/CREAT (test code = [...] ALT (test code = 2219) 62 U/L [id number] 00:00:00* Test Item Value Reference Range Interpretation Comme nts TSH, THIRD GENERATION (test code = 2821) 1.550 UIU/ML LIPID [id number] 00:00:00* Test Item Value Reference Range Interpretation Comme nts CHOLESTEROL (test code = 2210) 209 MG/DL TRIGLYCERIDES (test code = 2232) 137 MG/DL HDL CHOLESTEROL (test code = 2220) 49 MG/DL CALC LDL CHOL (test code = 2237) 133 MG/DL RISK RATIO LDL/HDL (test cod e = 2238) 2.71 RATIO Cosmo NievesCOMPREHENSIVE METABOLIC [id number] 00:00:00* Test Item Value Reference Range Interpretation Comme nts GLUCOSE (test code = 2217) 222 MG/DL BUN (test code = 2208) 10 MG/DL CREATININE (test code = 2214) 0.63 MG/DL eGFR AMER. (test cod e = 90466) 134 ML/MIN/1.73 eGFR NON- AMER. (test code = 01116) 115 ML/MIN/1.73 CALC BUN/CREAT (test code = [...] (test code = 2219) 48 U/L Cosmo [id number] 00:00:00* Test Item Value Reference Range Interpretation Comme nts TSH, THIRD GENERATION (test code = 2821) 2.380 UIU/ML Cosmo Martin AustinLIPID [id number] 00:00:00* Test Item Value Reference Range Interpretation Comme nts CHOLESTEROL (test code = 2210) 209 MG/DL TRIGLYCERIDES (test code = 2232) 137 MG/DL HDL CHOLESTEROL (test code = 2220) 49 MG/DL CALC LDL CHOL (test code = 2237) 133 MG/DL RISK RATIO LDL/HDL (test cod e = 2238) 2.71 RATIO Cosmo NievesCOMPREHENSIVE METABOLIC [id number] 00:00:00* Test Item Value Reference Range Interpretation Comme nts GLUCOSE (test code = 7) 222 MG/DL BUN (test code = 2208) 10 MG/DL CREATININE (test code = 2214) 0.63 MG/DL eGFR AMER. (test cod e = 88116) 134 ML/MIN/1.73 eGFR NON- AMER. (test code = 26149) 115 ML/MIN/1.73 CALC BUN/CREAT (test code = [...] (test code = 2219) 48 U/L Cosmo [id number] 00:00:00* Test Item Value Reference Range Interpretation Comme nts TSH, THIRD GENERATION (test code = 2821) 2.380 UIU/ML Cosmo NievesLIPID [id number] 00:00:00* Test Item Value Reference Range Interpretation Comme nts CHOLESTEROL (test code = 2210) 209 MG/DL TRIGLYCERIDES (test code = 2232) 137 MG/DL HDL CHOLESTEROL (test code = 2220) 49 MG/DL CALC LDL CHOL (test code = 2237) 133 MG/DL RISK RATIO LDL/HDL (test cod e = 2238) 2.71 RATIO Cosmo NievesCOMPREHENSIVE METABOLIC [id number] 00:00:00* Test Item Value Reference Range Interpretation Comme nts GLUCOSE (test code = 2216) 222 MG/DL BUN (test code = 2208) 10 MG/DL CREATININE (test code = 2214) 0.63 MG/DL eGFR AMER. (test cod e = 45774) 134 ML/MIN/1.73 eGFR NON- AMER. (test code = 21345) 115 ML/MIN/1.73 CALC BUN/CREAT (test code = [...] (test code = 2219) 48 U/L Cosmo [id number] 00:00:00* Test Item Value Reference Range Interpretation Comme nts TSH, THIRD GENERATION (test code = 2821) 2.380 UIU/ML Cosmo NievesLIPID [id number] 00:00:00* Test Item Value Reference Range Interpretation Comme nts CHOLESTEROL (test code = 2210) 209 MG/DL TRIGLYCERIDES (test code = 2232) 137 MG/DL HDL CHOLESTEROL (test code = 2220) 49 MG/DL CALC LDL CHOL (test code = 2237) 133 MG/DL RISK RATIO LDL/HDL (test cod e = 2238) 2.71 RATIO LIPID [id number] 00:00:00* Test Item Value Reference Range Interpretation Comme nts CHOLESTEROL (test code = 2210) 209 MG/DL TRIGLYCERIDES (test code = 2232) 137 MG/DL HDL CHOLESTEROL (test code = 2220) 49 MG/DL CALC LDL CHOL (test code = 2237) 133 MG/DL RISK RATIO LDL/HDL (test cod e = 2238) 2.71 RATIO Cosmo NievesCOMPREHENSIVE METABOLIC [id number] 00:00:00* Test Item Value Reference Range Interpretation Comme nts GLUCOSE (test code = 2217) 222 MG/DL BUN (test code = 2208) 10 MG/DL CREATININE (test code = 2214) 0.63 MG/DL eGFR AMER. (test cod e = 73536) 134 ML/MIN/1.73 eGFR NON- AMER. (test code = 66207) 115 ML/MIN/1.73 CALC BUN/CREAT (test code = [...] ALT (test code = 2219) 48 U/L COMPREHENSIVE METABOLIC [id number] 00:00:00* Test Item Value Reference Range Interpretation Comme nts GLUCOSE (test code = 2217) 222 MG/DL BUN (test code = 2208) 10 MG/DL CREATININE (test code = 2214) 0.63 MG/DL eGFR AMER. (test cod e = 98703) 134 ML/MIN/1.73 eGFR NON- AMER. (test code = 71126) 115 ML/MIN/1.73 CALC BUN/CREAT (test code = [...] (test code = 2219) 48 U/L Cosmo [id number] 00:00:00* Test Item Value Reference Range Interpretation Comme nts TSH, THIRD GENERATION (test code = 2821) 2.380 UIU/ML [id number] 00:00:00* Test Item Value Reference Range Interpretation Comme nts TSH, THIRD GENERATION (test code = 2821) 2.380 UIU/ML Cosmo Martin AustinLIPID [id number] 00:00:00* Test Item Value Reference Range Interpretation Comme nts CHOLESTEROL (test code = 2210) 209 MG/DL TRIGLYCERIDES (test code = 2232) 137 MG/DL HDL CHOLESTEROL (test code = 2220) 49 MG/DL CALC LDL CHOL (test code = 2237) 133 MG/DL RISK RATIO LDL/HDL (test cod e = 2238) 2.71 RATIO COMPREHENSIVE METABOLIC [id number] 00:00:00* Test Item Value Reference Range Interpretation Comme nts GLUCOSE (test code = 2217) 222 MG/DL BUN (test code = 2208) 10 MG/DL CREATININE (test code = 2214) 0.63 MG/DL eGFR AMER. (test cod e = 97750) 134 ML/MIN/1.73 eGFR NON- AMER. (test code = 18993) 115 ML/MIN/1.73 CALC BUN/CREAT (test code = [...] ALT (test code = 2219) 48 U/L [id number] 00:00:00* Test Item Value Reference Range Interpretation Comme nts TSH, THIRD GENERATION (test code = 2821) 2.380 UIU/ML HEMOGLOBIN [id number] 00:00:00* Test Item Value Reference Range Interpretation Comme nts HEMOGLOBIN A1c (test code = 72701) 9.9 % Cosmo Martin AustinHEMOGLOBIN [id number] 00:00:00* Test Item Value Reference Range Interpretation Comme nts HEMOGLOBIN A1c (test code = 82468) 9.9 % Cosmo Martin AustinHEMOGLOBIN [id number] 00:00:00* Test Item Value Reference Range Interpretation Comme nts HEMOGLOBIN A1c (test code = 58427) 9.9 % HEMOGLOBIN [id number] 00:00:00* Test Item Value Reference Range Interpretation Comme nts HEMOGLOBIN A1c (test code = 86978) 9.9 % Cosmo Martin AustinHEMOGLOBIN [id number] 00:00:00* Test Item Value Reference Range Interpretation Comme nts HEMOGLOBIN A1c (test code = 44605) 9.9 % HEMOGLOBIN [id number] 00:00:00* Test Item Value Reference Range Interpretation Comme nts HEMOGLOBIN A1c (test code = 08051) 9.9 % Cosmo Martin AustinHEMOGLOBIN [id number] 00:00:00* Test Item Value Reference Range Interpretation Comme nts HEMOGLOBIN A1c (test code = 80169) 9.5 % Cosmo Martin AustinHEMOGLOBIN [id number] 00:00:00* Test Item Value Reference Range Interpretation Comme nts HEMOGLOBIN A1c (test code = 86242) 9.5 % Cosmo Martin AustinHEMOGLOBIN [id number] 00:00:00* Test Item Value Reference Range Interpretation Comme nts HEMOGLOBIN A1c (test code = 04477) 9.5 % Cosmo Martin AustinHEMOGLOBIN [id number] 00:00:00* Test Item Value Reference Range Interpretation Comme nts HEMOGLOBIN A1c (test code = 93354) 9.5 % HEMOGLOBIN [id number] 00:00:00* Test Item Value Reference Range Interpretation Comme nts HEMOGLOBIN A1c (test code = 40402) 9.5 % Cosmo NievesHEMOGLOBIN [id number] 00:00:00* Test Item Value Reference Range Interpretation Comme parisa HEMOGLOBIN A1c (test code = 63348) 9.5 % LIPID [id number] 00:00:00* Test Item Value Reference Range Interpretation Comme nts CHOLESTEROL (test code = 2210) 195 MG/DL TRIGLYCERIDES (test code = 2232) 188 MG/DL HDL CHOLESTEROL (test code = 2220) 47 MG/DL CALC LDL CHOL (test code = 2237) 110 MG/DL RISK RATIO LDL/HDL (test cod e = 2238) 2.35 RATIO Cosmo [id number] 00:00:00* Test Item Value Reference Range Interpretation Comme nts TSH (test code = 2821) 2.920 UIU/ML Cosmo NievesCOMPREHENSIVE METABOLIC [id number] 00:00:00* Test Item Value Reference Range Interpretation Comme nts GLUCOSE (test code = 2217) 233 MG/DL BUN (test code = 2208) 11 MG/DL CREATININE (test code = 2214) 0.59 MG/DL eGFR AMER. (test cod e = 28443) 137 ML/MIN/1.73 eGFR NON- AMER. (test code = 91917) 118 ML/MIN/1.73 CALC BUN/CREAT (test code = [...] code = 2219) 49 U/L Cosmo NievesLIPID [id number] 00:00:00* Test Item Value Reference Range Interpretation Comme nts CHOLESTEROL (test code = 2210) 195 MG/DL TRIGLYCERIDES (test code = 2232) 188 MG/DL HDL CHOLESTEROL (test code = 2220) 47 MG/DL CALC LDL CHOL (test code = 2237) 110 MG/DL RISK RATIO LDL/HDL (test cod e = 2238) 2.35 RATIO Cosmo [id number] 00:00:00* Test Item Value Reference Range Interpretation Comme nts TSH (test code = 2821) 2.920 UIU/ML Cosmo NievesCOMPREHENSIVE METABOLIC [id number] 00:00:00* Test Item Value Reference Range Interpretation Comme nts GLUCOSE (test code = 2217) 233 MG/DL BUN (test code = 2208) 11 MG/DL CREATININE (test code = 2214) 0.59 MG/DL eGFR AMER. (test cod e = 57268) 137 ML/MIN/1.73 eGFR NON- AMER. (test code = 86880) 118 ML/MIN/1.73 CALC BUN/CREAT (test code = [...] code = 2219) 49 U/L Cosmo NievesLIPID [id number] 00:00:00* Test Item Value Reference Range Interpretation Comme nts CHOLESTEROL (test code = 2210) 195 MG/DL TRIGLYCERIDES (test code = 2232) 188 MG/DL HDL CHOLESTEROL (test code = 2220) 47 MG/DL CALC LDL CHOL (test code = 2237) 110 MG/DL RISK RATIO LDL/HDL (test cod e = 2238) 2.35 RATIO Cosmo NievesCOMPREHENSIVE METABOLIC [id number] 00:00:00* Test Item Value Reference Range Interpretation Comme nts GLUCOSE (test code = 2217) 233 MG/DL BUN (test code = 2208) 11 MG/DL CREATININE (test code = 2214) 0.59 MG/DL eGFR AMER. (test cod e = 82010) 137 ML/MIN/1.73 eGFR NON- AMER. (test code = 23356) 118 ML/MIN/1.73 CALC BUN/CREAT (test code = [...] ALT (test code = 2219) 49 U/L [id number] 00:00:00* Test Item Value Reference Range Interpretation Comme nts TSH (test code = 2821) 2.920 UIU/ML Cosmo Martin AustinLIPID [id number] 00:00:00* Test Item Value Reference Range Interpretation Comme nts CHOLESTEROL (test code = 2210) 195 MG/DL TRIGLYCERIDES (test code = 2232) 188 MG/DL HDL CHOLESTEROL (test code = 2220) 47 MG/DL CALC LDL CHOL (test code = 2237) 110 MG/DL RISK RATIO LDL/HDL (test cod e = 2238) 2.35 RATIO COMPREHENSIVE METABOLIC [id number] 00:00:00* Test Item Value Reference Range Interpretation Comme nts GLUCOSE (test code = 2217) 233 MG/DL BUN (test code = 2208) 11 MG/DL CREATININE (test code = 2214) 0.59 MG/DL eGFR AMER. (test cod e = 55928) 137 ML/MIN/1.73 eGFR NON- AMER. (test code = 18400) 118 ML/MIN/1.73 CALC BUN/CREAT (test code = 2235) 19 RATIO SODIUM (test code = 2231) 137 MEQ/L POTASSIUM (test code = 2228) 4.3 MEQ/L CHLORIDE (test code = 2215) 93 MEQ/L CARBON DIOXIDE (test code = 2206) 24 MEQ/L CALCIUM (test code = 2209) 9.8 MG/DL PROTEIN, TOTAL (test code = 222) 7.1 G/DL ALBUMIN (test code = 2201) 4.1 G/DL CALC GLOBULIN (test code = 2240) 3.0 G/DL CALC A/G RATIO (test code = 2234) 1.4 RATIO BILIRUBIN, TOTAL (test code = 2207) 0.5 MG/DL ALKALINE PHOSPHATASE (test code = 2204) 70 U/L AST (test code = 2218) 55 U/L ALT (test code = 2219) 49 U/L Cosmo Martin AustinLIPID [id number] 00:00:00* Test Item Value Reference Range Interpretation Comme nts CHOLESTEROL (test code = 2210) 195 MG/DL TRIGLYCERIDES (test code = 2232) 188 MG/DL HDL CHOLESTEROL (test code = 2220) 47 MG/DL CALC LDL CHOL (test code = 2237) 110 MG/DL RISK RATIO LDL/HDL (test cod e = 2238) 2.35 RATIO Cosmo Martin [id number] 00:00:00* Test Item Value Reference Range Interpretation Comme nts TSH (test code = 2821) 2.920 UIU/ML [id number] 00:00:00* Test Item Value Reference Range Interpretation Comme nts TSH (test code = 2821) 2.920 UIU/ML Cosmo NievesCOMPREHENSIVE METABOLIC [id number] 00:00:00* Test Item Value Reference Range Interpretation Comme nts GLUCOSE (test code = 2217) 233 MG/DL BUN (test code = 2208) 11 MG/DL CREATININE (test code = 2214) 0.59 MG/DL eGFR AMER. (test cod e = 48530) 137 ML/MIN/1.73 eGFR NON- AMER. (test code = 05627) 118 ML/MIN/1.73 CALC BUN/CREAT (test code = [...] (test code = 2219) 49 U/L Cosmo Veronica EvadaleCOMPREHENSIVE METABOLIC [id number] 00:00:00* Test Item Value Reference Range Interpretation Comme nts GLUCOSE (test code = 2217) 233 MG/DL BUN (test code = 2208) 11 MG/DL CREATININE (test code = 2214) 0.59 MG/DL eGFR AMER. (test cod e = 29568) 137 ML/MIN/1.73 eGFR NON- AMER. (test code = 82365) 118 ML/MIN/1.73 CALC BUN/CREAT (test code = [...] (test code = 2219) 49 U/L LIPID [id number] 00:00:00* Test Item Value Reference Range Interpretation Comme nts CHOLESTEROL (test code = 2210) 195 MG/DL TRIGLYCERIDES (test code = 2232) 188 MG/DL HDL CHOLESTEROL (test code = 2220) 47 MG/DL CALC LDL CHOL (test code = 2237) 110 MG/DL RISK RATIO LDL/HDL (test cod e = 2238) 2.35 RATIO [id number] 00:00:00* Test Item Value Reference Range Interpretation Comme nts TSH (test code = 2821) 2.920 UIU/ML CBC W/AUTO [id number] 00:00:00* Test Item Value Reference Range Interpretation [...] code = 1015) 259 K/UL Cosmo Martin EzequielCBC W/AUTO [id number] 00:00:00* Test Item Value Reference Range Interpretation [...] code = 1015) 259 K/UL Cosmo Martin [facility] W/AUTO [id number] 00:00:00* Test Item Value Reference Range Interpretation [...] code = 1015) 259 K/UL Cosmo Martin [facility] W/AUTO [id number] 00:00:00* Test Item Value Reference Range Interpretation [...] code = 1015) 259 K/UL CBC W/AUTO [id number] 00:00:00* Test Item Value Reference Range Interpretation [...] code = 1015) 259 K/UL Cosmo Martin EzequielCBC W/AUTO [id number] 00:00:00* Test Item Value Reference Range Interpretation [...] code = 1015) 259 K/UL COMPREHENSIVE METABOLIC [id number] 00:00:00* Test Item Value Reference Range Interpretation Comme nts GLUCOSE (test code = 2217) 184 MG/DL BUN (test code = 2208) 9 MG/DL CREATININE (test code = 2214) 0.74 MG/DL eGFR AMER. (test cod e = 07247) 122 ML/MIN/1.73 eGFR NON- AMER. (test code = 73017) 105 ML/MIN/1.73 CALC BUN/CREAT (test code = [...] = 2219) 53 U/L Cosmo NievesCBC W/AUTO [id number] 00:00:00* Test Item Value Reference Range Interpretation [...] code = 1015) 256 K/UL Cosmo NievesHEMOGLOBIN [id number] 00:00:00* Test Item Value Reference Range Interpretation Comme nts HEMOGLOBIN A1c (test code = 84332) 6.5 % Cosmo [id number] 00:00:00* Test Item Value Reference Range Interpretation Comme nts TSH (test code = 2821) 1.820 UIU/ML Cosmo NievesCOMPREHENSIVE METABOLIC [id number] 00:00:00* Test Item Value Reference Range Interpretation Comme nts GLUCOSE (test code = 2217) 184 MG/DL BUN (test code = 2208) 9 MG/DL CREATININE (test code = 2214) 0.74 MG/DL eGFR AMER. (test cod e = 31851) 122 ML/MIN/1.73 eGFR NON- AMER. (test code = 27469) 105 ML/MIN/1.73 CALC BUN/CREAT (test code = [...] = 2219) 53 U/L Cosmo NievesCBC W/AUTO [id number] 00:00:00* Test Item Value Reference Range Interpretation [...] code = 1015) 256 K/UL Cosmo NievesHEMOGLOBIN [id number] 00:00:00* Test Item Value Reference Range Interpretation Comme parisa HEMOGLOBIN A1c (test code = 12546) 6.5 % Cosmo [id number] 00:00:00* Test Item Value Reference Range Interpretation Comme nts TSH (test code = 2821) 1.820 UIU/ML Cosmo NievesCOMPREHENSIVE METABOLIC [id number] 00:00:00* Test Item Value Reference Range Interpretation Comme nts GLUCOSE (test code = 2217) 184 MG/DL BUN (test code = 2208) 9 MG/DL CREATININE (test code = 2214) 0.74 MG/DL eGFR AMER. (test cod e = 13774) 122 ML/MIN/1.73 eGFR NON- AMER. (test code = 69923) 105 ML/MIN/1.73 CALC BUN/CREAT (test code = [...] = 2219) 53 U/L Cosmo NievesCBC W/AUTO [id number] 00:00:00* Test Item Value Reference Range Interpretation [...] (test code = 1015) 256 K/UL Cosmo NievesCOMPREHENSIVE METABOLIC [id number] 00:00:00* Test Item Value Reference Range Interpretation Comme nts GLUCOSE (test code = 2217) 184 MG/DL BUN (test code = 2208) 9 MG/DL CREATININE (test code = 2214) 0.74 MG/DL eGFR AMER. (test cod e = 67056) 122 ML/MIN/1.73 eGFR NON- AMER. (test code = 81461) 105 ML/MIN/1.73 CALC BUN/CREAT (test code = [...] ALT (test code = 2219) 53 U/L HEMOGLOBIN [id number] 00:00:00* Test Item Value Reference Range Interpretation Comme nts HEMOGLOBIN A1c (test code = 54977) 6.5 % Cosmo [id number] 00:00:00* Test Item Value Reference Range Interpretation Comme nts TSH (test code = 2821) 1.820 UIU/ML Cosmo NievesCOMPREHENSIVE METABOLIC [id number] 00:00:00* Test Item Value Reference Range Interpretation Comme nts GLUCOSE (test code = 2217) 184 MG/DL BUN (test code = 2208) 9 MG/DL CREATININE (test code = 2214) 0.74 MG/DL eGFR AMER. (test cod e = 45824) 122 ML/MIN/1.73 eGFR NON- AMER. (test code = 64477) 105 ML/MIN/1.73 CALC BUN/CREAT (test code = [...] = 2219) 53 U/L Cosmo NievesCBC W/AUTO [id number] 00:00:00* Test Item Value Reference Range Interpretation [...] (test code = 1015) 256 K/UL HEMOGLOBIN [id number] 00:00:00* Test Item Value Reference Range Interpretation Comme nts HEMOGLOBIN A1c (test code = 68796) 6.5 % CBC W/AUTO [id number] 00:00:00* Test Item Value Reference Range Interpretation [...] (test code = 1015) 256 K/UL Cosmo Martin AustinHEMOGLOBIN [id number] 00:00:00* Test Item Value Reference Range Interpretation Comme nts HEMOGLOBIN A1c (test code = 14712) 6.5 % Cosmo Martin [id number] 00:00:00* Test Item Value Reference Range Interpretation Comme nts TSH (test code = 2821) 1.820 UIU/ML [id number] 00:00:00* Test Item Value Reference Range Interpretation Comme nts TSH (test code = 2821) 1.820 UIU/ML Cosmo NievesCOMPREHENSIVE METABOLIC [id number] 00:00:00* Test Item Value Reference Range Interpretation Comme nts GLUCOSE (test code = 2217) 184 MG/DL BUN (test code = 2208) 9 MG/DL CREATININE (test code = 2214) 0.74 MG/DL eGFR AMER. (test cod e = 61260) 122 ML/MIN/1.73 eGFR NON- AMER. (test code = 72228) 105 ML/MIN/1.73 CALC BUN/CREAT (test code = [...] code = 2219) 53 U/L CBC W/AUTO [id number] 00:00:00* Test Item Value Reference Range Interpretation [...] (test code = 1015) 256 K/UL HEMOGLOBIN [id number] 00:00:00* Test Item Value Reference Range Interpretation Comme nts HEMOGLOBIN A1c (test code = 80812) 6.5 % [id number] 00:00:00* Test Item Value Reference Range Interpretation Comme nts TSH (test code = 2821) 1.820 UIU/ML ACUTE HEPATITIS [id number] 00:00:00* Test Item Value Reference Range Interpretation Comme nts HEPATITIS A IgM (test code = 90710) NON-REACTIVE HEPATITIS B CORE IgM (test c ode = 4644) NON-REACTIVE HEPATITIS B SURF AG (test co de = 2739) NON-REACTIVE HEPATITIS C ANTIBODY (test c ode = 4675) NON-REACTIVE INTERPRETATION HEPATITIS A: (test code = 2552) (NOTE) INTERPRETATION HEPATITIS B: (test code = 30769) (NOTE) INTERPRETATION HEPATITIS C: (test code = 89459) (NOTE) Cosmo Martin [facility] HEPATITIS [id number] 00:00:00* Test Item Value Reference Range Interpretation Comme nts HEPATITIS A IgM (test code = 39792) NON-REACTIVE HEPATITIS B CORE IgM (test c ode = 4644) NON-REACTIVE HEPATITIS B SURF AG (test co de = 2739) NON-REACTIVE HEPATITIS C ANTIBODY (test c ode = 4675) NON-REACTIVE INTERPRETATION HEPATITIS A: (test code = 2552) (NOTE) INTERPRETATION HEPATITIS B: (test code = 04283) (NOTE) INTERPRETATION HEPATITIS C: (test code = 75730) (NOTE) [facility] [id number] 00:00:00* Test Item Value Reference Range Interpretation Comme nts HEPATITIS A IgM (test code = 75435) NON-REACTIVE HEPATITIS B CORE IgM (test c ode = 4644) NON-REACTIVE HEPATITIS B SURF AG (test co de = 2739) NON-REACTIVE HEPATITIS C ANTIBODY (test c ode = 4675) NON-REACTIVE INTERPRETATION HEPATITIS A: (test code = 2552) (NOTE) INTERPRETATION HEPATITIS B: (test code = 70755) (NOTE) INTERPRETATION HEPATITIS C: (test code = 81491) (NOTE) ACUTE HEPATITIS [id number] 00:00:00* Test Item Value Reference Range Interpretation Comme nts HEPATITIS A IgM (test code = 25651) NON-REACTIVE HEPATITIS B CORE IgM (test c ode = 4644) NON-REACTIVE HEPATITIS B SURF AG (test co de = 2739) NON-REACTIVE HEPATITIS C ANTIBODY (test c ode = 4675) NON-REACTIVE INTERPRETATION HEPATITIS A: (test code = 2552) (NOTE) INTERPRETATION HEPATITIS B: (test code = 26783) (NOTE) INTERPRETATION HEPATITIS C: (test code = 57445) (NOTE) Cosmo Martin [facility] HEPATITIS [id number] 00:00:00* Test Item Value Reference Range Interpretation Comme nts HEPATITIS A IgM (test code = 46472) NON-REACTIVE HEPATITIS B CORE IgM (test c ode = 4644) NON-REACTIVE HEPATITIS B SURF AG (test co de = 2739) NON-REACTIVE HEPATITIS C ANTIBODY (test c ode = 4675) NON-REACTIVE INTERPRETATION HEPATITIS A: (test code = 2552) (NOTE) INTERPRETATION HEPATITIS B: (test code = 32691) (NOTE) INTERPRETATION HEPATITIS C: (test code = 96105) (NOTE) Cosmo NievesACUTE HEPATITIS [id number] 00:00:00* Test Item Value Reference Range Interpretation Comme nts HEPATITIS A IgM (test code = 76893) NON-REACTIVE HEPATITIS B CORE IgM (test c ode = 4644) NON-REACTIVE HEPATITIS B SURF AG (test co de = 2739) NON-REACTIVE HEPATITIS C ANTIBODY (test c ode = 4675) NON-REACTIVE INTERPRETATION HEPATITIS A: (test code = 2552) (NOTE) INTERPRETATION HEPATITIS B: (test code = 13292) (NOTE) INTERPRETATION HEPATITIS C: (test code = 17789) (NOTE) [id number] 00:00:00* Test Item Value Reference Range Interpretation Comme nts TSH (test code = 2821) 3.4 UIU/ML Cosmo NievesCOMPREHENSIVE METABOLIC [id number] 00:00:00* Test Item Value Reference Range Interpretation Comme nts GLUCOSE (test code = 2217) 146 MG/DL BUN (test code = 2208) 10 MG/DL CREATININE (test code = 2214) 0.77 MG/DL eGFR AMER. (test cod e = 09800) 116 ML/MIN/1.73 eGFR NON- AMER. (test code = 24683) 100 ML/MIN/1.73 CALC BUN/CREAT (test code = [...] (test code = 2219) 63 U/L Cosmo [id number] 00:00:00* Test Item Value Reference Range Interpretation Comme nts TSH (test code = 2821) 3.4 UIU/ML Cosmo Martin EvadaleCOMPREHENSIVE METABOLIC [id number] 00:00:00* Test Item Value Reference Range Interpretation Comme nts GLUCOSE (test code = 2217) 146 MG/DL BUN (test code = 2208) 10 MG/DL CREATININE (test code = 2214) 0.77 MG/DL eGFR AMER. (test cod e = 24441) 116 ML/MIN/1.73 eGFR NON- AMER. (test code = 85852) 100 ML/MIN/1.73 CALC BUN/CREAT (test code = [...] (test code = 2219) 63 U/L Cosmo [id number] 00:00:00* Test Item Value Reference Range Interpretation Comme nts TSH (test code = 2821) 3.4 UIU/ML Cosmo NievesCOMPREHENSIVE METABOLIC [id number] 00:00:00* Test Item Value Reference Range Interpretation Comme nts GLUCOSE (test code = 2217) 146 MG/DL BUN (test code = 2208) 10 MG/DL CREATININE (test code = 2214) 0.77 MG/DL eGFR AMER. (test cod e = 78397) 116 ML/MIN/1.73 eGFR NON- AMER. (test code = 12628) 100 ML/MIN/1.73 CALC BUN/CREAT (test code = [...] code = 2219) 63 U/L COMPREHENSIVE METABOLIC [id number] 00:00:00* Test Item Value Reference Range Interpretation Comme nts GLUCOSE (test code = 2217) 146 MG/DL BUN (test code = 2208) 10 MG/DL CREATININE (test code = 2214) 0.77 MG/DL eGFR AMER. (test cod e = 27667) 116 ML/MIN/1.73 eGFR NON- AMER. (test code = 55714) 100 ML/MIN/1.73 CALC BUN/CREAT (test code = [...] (test code = 2219) 63 U/L Cosmo [id number] 00:00:00* Test Item Value Reference Range Interpretation Comme nts TSH (test code = 2821) 3.4 UIU/ML [id number] 00:00:00* Test Item Value Reference Range Interpretation Comme nts TSH (test code = 2821) 3.4 UIU/ML Cosmo NievesCOMPREHENSIVE METABOLIC [id number] 00:00:00* Test Item Value Reference Range Interpretation Comme nts GLUCOSE (test code = 2217) 146 MG/DL BUN (test code = 2208) 10 MG/DL CREATININE (test code = 2214) 0.77 MG/DL eGFR AMER. (test cod e = 07671) 116 ML/MIN/1.73 eGFR NON- AMER. (test code = 54703) 100 ML/MIN/1.73 CALC BUN/CREAT (test code = [...] = 2219) 63 U/L Cosmo NievesCOMPREHENSIVE METABOLIC [id number] 00:00:00* Test Item Value Reference Range Interpretation Comme nts GLUCOSE (test code = 2217) 146 MG/DL BUN (test code = 2208) 10 MG/DL CREATININE (test code = 2214) 0.77 MG/DL eGFR AMER. (test cod e = 29323) 116 ML/MIN/1.73 eGFR NON- AMER. (test code = 80212) 100 ML/MIN/1.73 CALC BUN/CREAT (test code = [...] ALT (test code = 2219) 63 U/L [id number] 00:00:00* Test Item Value Reference Range Interpretation Comme nts TSH (test code = 2821) 3.4 UIU/ML HEMOGLOBIN [id number] 00:00:00* Test Item Value Reference Range Interpretation Comme nts HEMOGLOBIN A1c (test code = 18135) 7.9 % Cosmo F AustinHEMOGLOBIN [id number] 00:00:00* Test Item Value Reference Range Interpretation Comme nts HEMOGLOBIN A1c (test code = 80367) 7.9 % Cosmo F AustinHEMOGLOBIN [id number] 00:00:00* Test Item Value Reference Range Interpretation Comme nts HEMOGLOBIN A1c (test code = 88278) 7.9 % Cosmo F AustinHEMOGLOBIN [id number] 00:00:00* Test Item Value Reference Range Interpretation Comme nts HEMOGLOBIN A1c (test code = 02054) 7.9 % HEMOGLOBIN [id number] 00:00:00* Test Item Value Reference Range Interpretation Comme nts HEMOGLOBIN A1c (test code = 37990) 7.9 % Cosmo F AustinHEMOGLOBIN [id number] 00:00:00* Test Item Value Reference Range Interpretation Comme nts HEMOGLOBIN A1c (test code = 64348) 7.9 % LIPID [id number] 00:00:00* Test Item Value Reference Range Interpretation Comme nts CHOLESTEROL (test code = 2210) 171 MG/DL TRIGLYCERIDES (test code = 2232) 137 MG/DL HDL CHOLESTEROL (test code = 2220) 53 MG/DL CALC LDL CHOL (test code = 2237) 91 MG/DL RISK RATIO LDL/HDL (test cod e = 2238) 1.71 RATIO Cosmo [id number] 00:00:00* Test Item Value Reference Range Interpretation Comme nts TSH (test code = 2821) 5.7 UIU/ML Cosmo NievesCOMPREHENSIVE METABOLIC [id number] 00:00:00* Test Item Value Reference Range Interpretation Comme nts GLUCOSE (test code = 2217) 156 MG/DL BUN (test code = 2208) 10 MG/DL CREATININE (test code = 2214) 0.80 MG/DL eGFR AMER. (test cod e = 26393) 111 ML/MIN/1.73 eGFR NON- AMER. (test code = 64871) 96 ML/MIN/1.73 CALC BUN/CREAT (test code = [...] code = 2219) 60 U/L Cosmo NievesLIPID [id number] 00:00:00* Test Item Value Reference Range Interpretation Comme nts CHOLESTEROL (test code = 2210) 171 MG/DL TRIGLYCERIDES (test code = 2232) 137 MG/DL HDL CHOLESTEROL (test code = 2220) 53 MG/DL CALC LDL CHOL (test code = 2237) 91 MG/DL RISK RATIO LDL/HDL (test cod e = 2238) 1.71 RATIO Cosmo [id number] 00:00:00* Test Item Value Reference Range Interpretation Comme nts TSH (test code = 2821) 5.7 UIU/ML Cosmo NievesCOMPREHENSIVE METABOLIC [id number] 00:00:00* Test Item Value Reference Range Interpretation Comme nts GLUCOSE (test code = 2217) 156 MG/DL BUN (test code = 2208) 10 MG/DL CREATININE (test code = 2214) 0.80 MG/DL eGFR AMER. (test cod e = 44455) 111 ML/MIN/1.73 eGFR NON- AMER. (test code = 74050) 96 ML/MIN/1.73 CALC BUN/CREAT (test code = [...] code = 2219) 60 U/L Cosmo NievesLIPID [id number] 00:00:00* Test Item Value Reference Range Interpretation Comme nts CHOLESTEROL (test code = 2210) 171 MG/DL TRIGLYCERIDES (test code = 2232) 137 MG/DL HDL CHOLESTEROL (test code = 2220) 53 MG/DL CALC LDL CHOL (test code = 2237) 91 MG/DL RISK RATIO LDL/HDL (test cod e = 2238) 1.71 RATIO Cosmo NievesCOMPREHENSIVE METABOLIC [id number] 00:00:00* Test Item Value Reference Range Interpretation Comme nts GLUCOSE (test code = 2217) 156 MG/DL BUN (test code = 2208) 10 MG/DL CREATININE (test code = 2214) 0.80 MG/DL eGFR AMER. (test cod e = 12767) 111 ML/MIN/1.73 eGFR NON- AMER. (test code = 97011) 96 ML/MIN/1.73 CALC BUN/CREAT (test code = [...] ALT (test code = 2219) 60 U/L [id number] 00:00:00* Test Item Value Reference Range Interpretation Comme nts TSH (test code = 2821) 5.7 UIU/ML Cosmo Martin AustinLIPID [id number] 00:00:00* Test Item Value Reference Range Interpretation Comme nts CHOLESTEROL (test code = 2210) 171 MG/DL TRIGLYCERIDES (test code = 2232) 137 MG/DL HDL CHOLESTEROL (test code = 2220) 53 MG/DL CALC LDL CHOL (test code = 2237) 91 MG/DL RISK RATIO LDL/HDL (test cod e = 2238) 1.71 RATIO COMPREHENSIVE METABOLIC [id number] 00:00:00* Test Item Value Reference Range Interpretation Comme nts GLUCOSE (test code = 2217) 156 MG/DL BUN (test code = 2208) 10 MG/DL CREATININE (test code = 2214) 0.80 MG/DL eGFR AMER. (test cod e = 17232) 111 ML/MIN/1.73 eGFR NON- AMER. (test code = 80802) 96 ML/MIN/1.73 CALC BUN/CREAT (test code = [...] code = 2219) 60 U/L Cosmo NievesLIPID [id number] 00:00:00* Test Item Value Reference Range Interpretation Comme nts CHOLESTEROL (test code = 2210) 171 MG/DL TRIGLYCERIDES (test code = 2232) 137 MG/DL HDL CHOLESTEROL (test code = 2220) 53 MG/DL CALC LDL CHOL (test code = 2237) 91 MG/DL RISK RATIO LDL/HDL (test cod e = 2238) 1.71 RATIO Cosmo Martin [id number] 00:00:00* Test Item Value Reference Range Interpretation Comme nts TSH (test code = 2821) 5.7 UIU/ML [id number] 00:00:00* Test Item Value Reference Range Interpretation Comme nts TSH (test code = 2821) 5.7 UIU/ML Cosmo Martin EzequielCOMPREHENSIVE METABOLIC [id number] 00:00:00* Test Item Value Reference Range Interpretation Comme nts GLUCOSE (test code = 2217) 156 MG/DL BUN (test code = 2208) 10 MG/DL CREATININE (test code = 2214) 0.80 MG/DL eGFR AMER. (test cod e = 02098) 111 ML/MIN/1.73 eGFR NON- AMER. (test code = 73358) 96 ML/MIN/1.73 CALC BUN/CREAT (test code = [...] ALT (test code = 2219) 60 U/L COMPREHENSIVE METABOLIC [id number] 00:00:00* Test Item Value Reference Range Interpretation Comme nts GLUCOSE (test code = 2217) 156 MG/DL BUN (test code = 2208) 10 MG/DL CREATININE (test code = 2214) 0.80 MG/DL eGFR AMER. (test cod e = 25367) 111 ML/MIN/1.73 eGFR NON- AMER. (test code = 65779) 96 ML/MIN/1.73 CALC BUN/CREAT (test code = [...] code = 2219) 60 U/L Cosmo NievesLIPID [id number] 00:00:00* Test Item Value Reference Range Interpretation Comme nts CHOLESTEROL (test code = 2210) 171 MG/DL TRIGLYCERIDES (test code = 2232) 137 MG/DL HDL CHOLESTEROL (test code = 2220) 53 MG/DL CALC LDL CHOL (test code = 2237) 91 MG/DL RISK RATIO LDL/HDL (test cod e = 2238) 1.71 RATIO [id number] 00:00:00* Test Item Value Reference Range Interpretation Comme nts TSH (test code = 2821) 5.7 UIU/ML CBC W/AUTO [id number] 00:00:00* Test Item Value Reference Range Interpretation [...] code = 1015) 250 K/UL Cosmo NievesHEMOGLOBIN [id number] 00:00:00* Test Item Value Reference Range Interpretation Comme nts HEMOGLOBIN A1c (test code = 01821) 7.1 % Cosmo NievesCBC W/AUTO [id number] 00:00:00* Test Item Value Reference Range Interpretation [...] = 1015) 250 K/UL Cosmo Martin AustinHEMOGLOBIN [id number] 00:00:00* Test Item Value Reference Range Interpretation Comme nts HEMOGLOBIN A1c (test code = 04627) 7.1 % Cosmo Martin AustinCBC W/AUTO [id number] 00:00:00* Test Item Value Reference Range Interpretation [...] = 1015) 250 K/UL Cosmo Martin AustinHEMOGLOBIN [id number] 00:00:00* Test Item Value Reference Range Interpretation Comme nts HEMOGLOBIN A1c (test code = 31589) 7.1 % Cosmo Martin AustinCBC W/AUTO [id number] 00:00:00* Test Item Value Reference Range Interpretation [...] COUNT (test code = 1015) 250 K/UL CBC W/AUTO [id number] 00:00:00* Test Item Value Reference Range Interpretation [...] = 1015) 250 K/UL Cosmo Martin AustinHEMOGLOBIN [id number] 00:00:00* Test Item Value Reference Range Interpretation Comme nts HEMOGLOBIN A1c (test code = 61579) 7.1 % HEMOGLOBIN [id number] 00:00:00* Test Item Value Reference Range Interpretation Comme nts HEMOGLOBIN A1c (test code = 44971) 7.1 % Cosmo Martin AustinCBC W/AUTO [id number] 00:00:00* Test Item Value Reference Range Interpretation [...] (test code = 1015) 250 K/UL HEMOGLOBIN [id number] 00:00:00* Test Item Value Reference Range Interpretation Comme nts HEMOGLOBIN A1c (test code = 96206) 7.1 % ACUTE HEPATITIS [id number] 00:00:00* Test Item Value Reference Range Interpretation Comme nts HEPATITIS A IgM (test code = 84668) NON-REACTIVE HEPATITIS B CORE IgM (test c ode = 4644) NON-REACTIVE HEPATITIS B SURF AG (test co de = 2739) NON-REACTIVE HEPATITIS C ANTIBODY (test c ode = 4675) NON-REACTIVE INTERPRETATION HEPATITIS A: (test code = 2552) (NOTE) INTERPRETATION HEPATITIS B: (test code = 38779) (NOTE) INTERPRETATION HEPATITIS C: (test code = 59195) (NOTE) Cosmo NievesACUTE HEPATITIS [id number] 00:00:00* Test Item Value Reference Range Interpretation Comme nts HEPATITIS A IgM (test code = 38755) NON-REACTIVE HEPATITIS B CORE IgM (test c ode = 4644) NON-REACTIVE HEPATITIS B SURF AG (test co de = 2739) NON-REACTIVE HEPATITIS C ANTIBODY (test c ode = 4675) NON-REACTIVE INTERPRETATION HEPATITIS A: (test code = 2552) (NOTE) INTERPRETATION HEPATITIS B: (test code = 02552) (NOTE) INTERPRETATION HEPATITIS C: (test code = 78337) (NOTE) Cosmo NievesACUTE HEPATITIS [id number] 00:00:00* Test Item Value Reference Range Interpretation Comme nts HEPATITIS A IgM (test code = 15474) NON-REACTIVE HEPATITIS B CORE IgM (test c ode = 4644) NON-REACTIVE HEPATITIS B SURF AG (test co de = 2739) NON-REACTIVE HEPATITIS C ANTIBODY (test c ode = 4675) NON-REACTIVE INTERPRETATION HEPATITIS A: (test code = 2552) (NOTE) INTERPRETATION HEPATITIS B: (test code = 40945) (NOTE) INTERPRETATION HEPATITIS C: (test code = 31718) (NOTE) ACUTE HEPATITIS [id number] 00:00:00* Test Item Value Reference Range Interpretation Comme nts HEPATITIS A IgM (test code = 17786) NON-REACTIVE HEPATITIS B CORE IgM (test c ode = 4644) NON-REACTIVE HEPATITIS B SURF AG (test co de = 2739) NON-REACTIVE HEPATITIS C ANTIBODY (test c ode = 4675) NON-REACTIVE INTERPRETATION HEPATITIS A: (test code = 2552) (NOTE) INTERPRETATION HEPATITIS B: (test code = 34835) (NOTE) INTERPRETATION HEPATITIS C: (test code = 14324) (NOTE) Cosmo NievesACUTE HEPATITIS [id number] 00:00:00* Test Item Value Reference Range Interpretation Comme nts HEPATITIS A IgM (test code = 90917) NON-REACTIVE HEPATITIS B CORE IgM (test c ode = 4644) NON-REACTIVE HEPATITIS B SURF AG (test co de = 2739) NON-REACTIVE HEPATITIS C ANTIBODY (test c ode = 4675) NON-REACTIVE INTERPRETATION HEPATITIS A: (test code = 2552) (NOTE) INTERPRETATION HEPATITIS B: (test code = 07899) (NOTE) INTERPRETATION HEPATITIS C: (test code = 19278) (NOTE) Cosmo NievesACUTE HEPATITIS [id number] 00:00:00* Test Item Value Reference Range Interpretation Comme nts HEPATITIS A IgM (test code = 88635) NON-REACTIVE HEPATITIS B CORE IgM (test c ode = 4644) NON-REACTIVE HEPATITIS B SURF AG (test co de = 2739) NON-REACTIVE HEPATITIS C ANTIBODY (test c ode = 4675) NON-REACTIVE INTERPRETATION HEPATITIS A: (test code = 2552) (NOTE) INTERPRETATION HEPATITIS B: (test code = 33694) (NOTE) INTERPRETATION HEPATITIS C: (test code = 58257) (NOTE) LIPID [id number] 00:00:00* Test Item Value Reference Range Interpretation Comme nts CHOLESTEROL (test code = 2210) 212 MG/DL TRIGLYCERIDES (test code = 2232) 120 MG/DL HDL CHOLESTEROL (test code = 2220) 48 MG/DL CALC LDL CHOL (test code = 2237) 140 MG/DL RISK RATIO LDL/HDL (test cod e = 2238) 2.92 RATIO Cosmo NievesCOMPREHENSIVE METABOLIC [id number] 00:00:00* Test Item Value Reference Range Interpretation Comme nts GLUCOSE (test code = 2217) 175 MG/DL BUN (test code = 2208) 7 MG/DL CREATININE (test code = 2214) 0.76 MG/DL eGFR AMER. (test cod e = 25115) 119 ML/MIN/1.73 eGFR NON- AMER. (test code = 81185) 102 ML/MIN/1.73 CALC BUN/CREAT (test code = [...] code = 2219) 42 U/L Cosmo Martin AustinLIPID [id number] 00:00:00* Test Item Value Reference Range Interpretation Comme nts CHOLESTEROL (test code = 2210) 212 MG/DL TRIGLYCERIDES (test code = 2232) 120 MG/DL HDL CHOLESTEROL (test code = 2220) 48 MG/DL CALC LDL CHOL (test code = 2237) 140 MG/DL RISK RATIO LDL/HDL (test cod e = 2238) 2.92 RATIO Cosmo Martin EzequielCOMPREHENSIVE METABOLIC [id number] 00:00:00* Test Item Value Reference Range Interpretation Comme nts GLUCOSE (test code = 2217) 175 MG/DL BUN (test code = 2208) 7 MG/DL CREATININE (test code = 2214) 0.76 MG/DL eGFR AMER. (test cod e = 53299) 119 ML/MIN/1.73 eGFR NON- AMER. (test code = 72270) 102 ML/MIN/1.73 CALC BUN/CREAT (test code = [...] code = 2219) 42 U/L Cosmo Martin EvadaleLIPID [id number] 00:00:00* Test Item Value Reference Range Interpretation Comme nts CHOLESTEROL (test code = 2210) 212 MG/DL TRIGLYCERIDES (test code = 2232) 120 MG/DL HDL CHOLESTEROL (test code = 2220) 48 MG/DL CALC LDL CHOL (test code = 2237) 140 MG/DL RISK RATIO LDL/HDL (test cod e = 2238) 2.92 RATIO Cosmo Martin EzequielCOMPREHENSIVE METABOLIC [id number] 00:00:00* Test Item Value Reference Range Interpretation Comme nts GLUCOSE (test code = 2217) 175 MG/DL BUN (test code = 2208) 7 MG/DL CREATININE (test code = 2214) 0.76 MG/DL eGFR AMER. (test cod e = 18151) 119 ML/MIN/1.73 eGFR NON- AMER. (test code = 28424) 102 ML/MIN/1.73 CALC BUN/CREAT (test code = [...] ALT (test code = 2219) 42 U/L COMPREHENSIVE METABOLIC [id number] 00:00:00* Test Item Value Reference Range Interpretation Comme nts GLUCOSE (test code = 2217) 175 MG/DL BUN (test code = 2208) 7 MG/DL CREATININE (test code = 2214) 0.76 MG/DL eGFR AMER. (test cod e = 57120) 119 ML/MIN/1.73 eGFR NON- AMER. (test code = 80709) 102 ML/MIN/1.73 CALC BUN/CREAT (test code = [...] code = 2219) 42 U/L Cosmo F AustinLIPID [id number] 00:00:00* Test Item Value Reference Range Interpretation Comme nts CHOLESTEROL (test code = 2210) 212 MG/DL TRIGLYCERIDES (test code = 2232) 120 MG/DL HDL CHOLESTEROL (test code = 2220) 48 MG/DL CALC LDL CHOL (test code = 2237) 140 MG/DL RISK RATIO LDL/HDL (test cod e = 2238) 2.92 RATIO LIPID [id number] 00:00:00* Test Item Value Reference Range Interpretation Comme nts CHOLESTEROL (test code = 2210) 212 MG/DL TRIGLYCERIDES (test code = 2232) 120 MG/DL HDL CHOLESTEROL (test code = 2220) 48 MG/DL CALC LDL CHOL (test code = 2237) 140 MG/DL RISK RATIO LDL/HDL (test cod e = 2238) 2.92 RATIO Cosmo NievesCOMPREHENSIVE METABOLIC [id number] 00:00:00* Test Item Value Reference Range Interpretation Comme nts GLUCOSE (test code = 2217) 175 MG/DL BUN (test code = 2208) 7 MG/DL CREATININE (test code = 2214) 0.76 MG/DL eGFR AMER. (test cod e = 00888) 119 ML/MIN/1.73 eGFR NON- AMER. (test code = 23596) 102 ML/MIN/1.73 CALC BUN/CREAT (test code = [...] = 2219) 42 U/L Cosmo NievesCOMPREHENSIVE METABOLIC [id number] 00:00:00* Test Item Value Reference Range Interpretation Comme nts GLUCOSE (test code = 2217) 175 MG/DL BUN (test code = 2208) 7 MG/DL CREATININE (test code = 2214) 0.76 MG/DL eGFR AMER. (test cod e = 24997) 119 ML/MIN/1.73 eGFR NON- AMER. (test code = 13364) 102 ML/MIN/1.73 CALC BUN/CREAT (test code = [...] (test code = 2219) 42 U/L LIPID [id number] 00:00:00* Test Item Value Reference Range Interpretation Comme nts CHOLESTEROL (test code = 2210) 212 MG/DL TRIGLYCERIDES (test code = 2232) 120 MG/DL HDL CHOLESTEROL (test code = 2220) 48 MG/DL CALC LDL CHOL (test code = 2237) 140 MG/DL RISK RATIO LDL/HDL (test cod e = 2238) 2.92 RATIO [id number] 00:00:00* Test Item Value Reference Range Interpretation Comme nts TSH (test code = 2821) 4.7 UIU/ML Cosmo Martin [id number] 00:00:00* Test Item Value Reference Range Interpretation Comme nts TSH (test code = 2821) 4.7 UIU/ML Cosmo F [id number] 00:00:00* Test Item Value Reference Range Interpretation Comme nts TSH (test code = 2821) 4.7 UIU/ML Cosmo F [id number] 00:00:00* Test Item Value Reference Range Interpretation Comme nts TSH (test code = 2821) 4.7 UIU/ML [id number] 00:00:00* Test Item Value Reference Range Interpretation Comme nts TSH (test code = 2821) 4.7 UIU/ML Cosmo F [id number] 00:00:00* Test Item Value Reference Range Interpretation Comme nts TSH (test code = 2821) 4.7 UIU/ML CBC W/AUTO [id number] 00:00:00* Test Item Value Reference Range Interpretation [...] = 1015) 255 K/UL Cosmo Martin AustinHEMOGLOBIN [id number] 00:00:00* Test Item Value Reference Range Interpretation Comme nts HEMOGLOBIN A1c (test code = 66227) 7.9 % Cosmo Martin AustinCBC W/AUTO [id number] 00:00:00* Test Item Value Reference Range Interpretation [...] = 1015) 255 K/UL Cosmo Martin AustinHEMOGLOBIN [id number] 00:00:00* Test Item Value Reference Range Interpretation Comme nts HEMOGLOBIN A1c (test code = 83514) 7.9 % Cosmo Martin AustinCBC W/AUTO [id number] 00:00:00* Test Item Value Reference Range Interpretation [...] code = 1015) 255 K/UL Cosmo NievesHEMOGLOBIN [id number] 00:00:00* Test Item Value Reference Range Interpretation Comme nts HEMOGLOBIN A1c (test code = 97343) 7.9 % Cosmo NievesCBC W/AUTO [id number] 00:00:00* Test Item Value Reference Range Interpretation [...] COUNT (test code = 1015) 255 K/UL CBC W/AUTO [id number] 00:00:00* Test Item Value Reference Range Interpretation [...] code = 1015) 255 K/UL Cosmo NievesHEMOGLOBIN [id number] 00:00:00* Test Item Value Reference Range Interpretation Comme nts HEMOGLOBIN A1c (test code = 39113) 7.9 % HEMOGLOBIN [id number] 00:00:00* Test Item Value Reference Range Interpretation Comme nts HEMOGLOBIN A1c (test code = 12175) 7.9 % Cosmo NievesCBC W/AUTO [id number] 00:00:00* Test Item Value Reference Range Interpretation [...] (test code = 1015) 255 K/UL HEMOGLOBIN [id number] 00:00:00* Test Item Value Reference Range Interpretation Comme nts HEMOGLOBIN A1c (test code = 51438) 7.9 % Notes Date/Time Note [facility]24-[facility]-24 00:00:00 [facility]2024-12-18 00:00:00 [facility]2024-06-27 00:00:00 [facility]"
[2024-12-18] MEDS ORDERED: DIPHENHYDRAMINE 50 MG/ML VIAL ONE (12:12)
[2024-12-18] MEDS ORDERED: droPERidol 5 MG/2 ML VIAL ONE (12:12)
[2024-12-18] MEDS ORDERED: NA CHLORIDE 0.9% 1,000 ML ONE (12:13)
[2024-12-18 12:42] LABS: Absolute Basophils 0.1 K/uL (0-0.5); Absolute Eosinophils 0.1 K/uL (0-0.5); Absolute Lymphocytes (CBC) 1.2 K/uL (0.7-4.9); Absolute Monocytes 0.6 K/uL (0.1-1.3); Absolute Neutrophil 13.9 K/uL (1.8-8.0); Basophils % 0.5 % (0-1.3); Eosinophils % 0.4 % (0-4.4); Hematocrit 39.5 % (36.0-45.0); Hemoglobin 12.9 g/dL (12.0-15.0); Lymphocytes % 7.3 % (15.3-44.8); MCH 25.2 pg (27.0-35.0); MCHC 32.6 g/dL (32.0-36.0); MCV 77.4 fL (80-100); MPV 9.6 fL (7.6-11.3); Monocytes % 3.6 % (3.3-12.3); Neutrophils % 88.2 % (41.7-73.7); Nucleated Red Blood Cells % 0.1 % (0-0); Platelets 255 thou/uL (152-406); Red Cell Distribution Width 16.7 % (12.1-15.2)
[2024-12-18 13:01] LABS: Albumin 3.2 g/dL (3.4-5.0); Albumin/Globulin Ratio 0.8 (1.1-1.8); Alkaline Phosphatase 73 U/L (45-117); Anion Gap 10.4 mEq/L (5.0-15.0); BUN Blood Urea Nitrogen 8 mg/dL (7-18); Bicarbonate 26 mEq/L (21-32); Bilirubin Total 0.6 mg/dL (0.2-1.0); Globulin 3.8 g/dL (2.3-3.5); Glomerular Filtration Rate 92 ml/min (=/>90); Glucose Level 202 mg/dL (74-106); Lipase 37 U/L (13-75); Potassium 3.4 mEq/L (3.5-5.1); Sodium Level 136 mEq/L (136-145)
[2024-12-18 13:05] LABS: ALT/SGPT < 14 U/L (13-56); AST/SGOT < 10 U/L (15-37)
[2024-12-18 13:07] LABS: Barbiturates NEGATIVE (NEGATIVE); Benzodiazepines NEGATIVE (NEGATIVE); Cocaine NEGATIVE (NEGATIVE); METHAMPHETAM NEGATIVE (NEGATIVE); Methadone NEGATIVE (NEGATIVE); Opiates NEGATIVE (NEGATIVE); Phencyclidine NEGATIVE (NEGATIVE); THC Cannibis POSITIVE (NEGATIVE)
[2024-12-18] MEDS ORDERED: METOCLOPRAMIDE 10 MG/2mL INJ ONE (13:11)
[2024-12-18] MEDS ORDERED: PROMETHAZINE INJ 25 MG/ML AMP ONE (14:21)
[2024-12-18] MEDS ORDERED: MORPHINE 4 MG/ML SYR ONE (15:04)
--- NOTE | 2024-12-18 15:26 | ER ---
Nurse's Notes [facility] Name: Katherine Yepez Age: 44 yrs Sex: Female : 1980 Arrival Date: 12/18/2024 Time: 10:25 Bed 9 Private MD: Diagnosis: Upper abdominal pain, unspecified;Gastroparesis Presentation: 12/18 11:12 Chief complaint: Patient states: she has been vomiting since approx 0530 this morning. ap3 patient reports mid-right and mid-upper abdominal pain. patient states her pain is currently a 9/10 on the pain scale. Coronavirus screen: At this time, the client does not indicate any symptoms associated with coronavirus-19. Ebola Screen: No symptoms or risks identified at this time. Initial Sepsis Screen: Does the patient meet any 2 criteria? No. Patient's initial sepsis screen is negative. Does the patient have a suspected source of infection? No. Patient's initial sepsis screen is negative. Risk Assessment: Do you want to hurt yourself or someone else? Patient reports no desire to harm self or others. Onset of symptoms was December 18, 2024 at 05:30. 11:12 Method Of Arrival: Ambulatory ap3 11:12 Acuity: CHAZ 3 ap3 Triage Assessment: 11:14 General: Appears. ap3 11:17 General: Appears uncomfortable, Behavior is calm, cooperative, appropriate for age. ap3 Pain: Complains of pain in abdomen Pain currently is 9 out of 10 on a pain scale. Neuro: Level of Consciousness is awake, alert, obeys commands, Oriented to person, place, time, situation, Appropriate for age. Cardiovascular: Patient's skin is warm and dry. Respiratory: Airway is patent Respiratory effort is even, unlabored, Respiratory pattern is regular, symmetrical. GI: Reports lower abdominal pain, upper abdominal pain, nausea, vomiting. Historical: - Allergies: 11:13 Bactrim; ap3 11:13 GABAPENTIN; ap3 11:13 Prednisone; ap3 11:13 Toradol; ap3 11:13 tramadol; ap3 11:13 Ultracet; ap3 11:13 Zofran; ap3 - PMHx: 11:13 diabetes mellitus; Gastroparesis (Hypertensive disord); Hypertensive disorder; ap3 Hypothyroidism; - PSHx: 11:13 section; neck fusion; ap3 - Immunization history:: Client reports having NOT received the Covid vaccine. Flu vaccine is not up to date. - Infectious Disease History:: Denies. - Social history:: Smoking status: Patient reports the use of cigarette tobacco products, smokes 1.5 packs per day. Screenin:18 Abuse screen: Denies threats or abuse. Nutritional screening: No deficits noted. ap3 Tuberculosis screening: No symptoms or risk factors identified. 13:21 [facility] ED Fall Risk Assessment (Adult) History of falling in the last 3 months, dd2 including since admission No falls in past 3 months (0 pts) Confusion or Disorientation No (0 pts) Intoxicated or Sedated No (0 pts) Impaired Gait No (0 pts) Mobility Assist Device Used No (0 pt) Altered Elimination No (0 pt) Score/Fall Risk Level 0 - 2 = Low Risk Oriented to surroundings, Maintained a safe environment, Educated pt \T\ family on fall prevention, incl call for assistance when getting out of bed, Assessed \T\ reinforced patient's understanding of fall precautions, Hourly rounding (assess needs \T\ fall precautionary measures) done. Assessment: 13:21 General: Appears in no apparent distress. uncomfortable, Behavior is calm, cooperative, dd2 appropriate for age. Pain: Complains of pain in left upper quadrant and right upper quadrant Pain does not radiate. Pain currently is 9 out of 10 on a pain scale. Quality of pain is described as crampy. Neuro: No deficits noted. Level of Consciousness is awake, alert, obeys commands, Oriented to person, place, time, situation, Appropriate for age. Cardiovascular: No deficits noted. Patient's skin is warm and dry. Respiratory: No deficits noted. Airway is patent Respiratory effort is even, unlabored, Respiratory pattern is regular, symmetrical. GI: Abdomen is non-distended, obese, Bowel sounds present X 4 quads. Abd is soft X 4 quads Abdomen is tender to palpation in right upper quadrant and left upper quadrant Reports upper abdominal pain, cramping, nausea, vomiting. : No deficits noted. No signs and/or symptoms were reported regarding the genitourinary system. EENT: No deficits noted. No signs and/or symptoms were reported regarding the EENT system. Derm: No deficits noted. No signs and/or symptoms reported regarding the dermatologic system. Musculoskeletal: Circulation, motion, and sensation intact. Range of motion: intact in all extremities. Vital Signs: 11:12 BP 140 / 71; Pulse 69; Resp 17; Temp 98.7(O); Pulse Ox 100% ; Weight 142.88 kg; Height ap3 5 ft. 11 in. ; Pain 9/10; 14:30 BP 135 / 73; Pulse 65; Resp 16; Pulse Ox 99% on R/A; dd2 15:35 BP 131 / 68; Pulse 67; Resp 16; Temp 98.4; Pulse Ox 98% on R/A; dd2 11:12 Body Mass Index 43.93 (142.88 kg, 180.34 cm) ap3 11:12 Pain Scale: Adult ap3 Marsteller Coma Score: 13:21 Eye Response: spontaneous(4). Motor Response: obeys commands(6). Verbal Response: dd2 oriented(5). Total: 15. ED Course: 10:27 Patient arrived in ED. im 10:30 Irma Ritchie PA-C is PHCP. sb4 10:30 Rodrick Herrera MD is Attending Physician. sb4 11:13 Triage completed. ap3 11:18 Arm band placed on right wrist. ap3 12:37 Initial lab(s) drawn, by me, sent to lab. Urine collected: clean catch specimen, clear. jl7 Inserted saline lock: 20 gauge in right forearm, using aseptic technique. Blood collected. Flushed with 10 mL NS. 13:21 Patient has correct armband on for positive identification. Bed in low position. Call dd2 light in reach. Side rails up X 1. Client placed on continuous cardiac and pulse oximetry monitoring. NIBP monitoring applied. Door closed. Noise minimized. Lights dimmed. Warm blanket given. Pillow given. Verbal reassurance given. 13:21 No provider procedures requiring assistance completed. Patient maintains SpO2 dd2 saturation greater than 95% on room air. 14:19 NAVA THOMAS, BONITA is Primary Nurse. dd2 15:25 Fracisoc Logan MD is Referral Physician. sb4 15:35 Provided Education on: d/c education. dd2 15:35 IV discontinued, intact, bleeding controlled, No redness/swelling at site. Pressure dd2 dressing applied. Administered Medications: 12:28 Drug: diphenhydrAMINE IVP 25 mg IVP once Route: IVP; Site: right forearm; jl7 12:43 Follow up: Response: No adverse reaction dd2 12:30 Drug: NS 0.9% IV 1000 ml IV at 1 bolus Per protocol; to be given as a bolus over 60 jl7 minutes Route: IV; Rate: 1 bolus; Site: right forearm; 13:30 Follow up: IV Status: Completed infusion; IV Intake: 1000ml dd2 12:30 Drug: Droperidol IVP 2.5 mg IVP once Route: IVP; Site: right forearm; jl7 12:45 Follow up: Response: No adverse reaction dd2 13:13 Drug: metoCLOPramide IVP 10 mg IVP once; over 1 to 2 minutes Route: IVP; Site: right dd2 antecubital; 13:28 Follow up: Response: No adverse reaction dd2 14:26 Drug: Promethazine IVP 25 mg IVP once Route: IVP; Site: right antecubital; dd2 14:41 Follow up: Response: No adverse reaction dd2 15:08 Drug: morphine IVP or IV 4 mg IVP once over 4 mins Route: IVP; Infused Over: 4 mins; dd2 Site: right forearm; 15:23 Follow up: Response: No adverse reaction dd2 Medication: 13:21 VIS not applicable for this client. dd2 Intake: 13:30 IV: 1000ml; Total: 1000ml. dd2 Outcome: 15:25 Discharge ordered by . sb4 15:35 Discharged to home ambulatory, dd2 15:35 Condition: improved 15:35 Discharge instructions given to patient, Instructed on discharge instructions, follow up and referral plans. Demonstrated understanding of instructions, follow-up care, 15:39 Patient left the ED. dd2 Signatures: Porter Bernstein RN RN jl7 Arti Rooney RN RN karo3 Irma Ritchie PA-C PANiesha sb4 Blanca Johnson DIANA, RN RN dd2
--- NOTE | 2024-12-18 15:26 | EDPHYS ---
Physician Documentation [facility] Name: Katherine Yepez Age: 44 yrs Sex: Female : 1980 Arrival Date: 12/18/2024 Time: 10:25 Bed 9 Private MD: ED Physician Rodrick Herrera HPI: 12/18 11:21 This 44 yrs old Female presents to ER via Ambulatory with complaints of Abdominal Pain, sb4 Near Syncope. 11:21 The patient presents with abdominal pain in the upper abdomen. Onset: The sb4 symptoms/episode began/occurred this morning. The symptoms do not radiate. Associated signs and symptoms: Pertinent positives: nausea and vomiting. The patient has experienced similar episodes in the past, chronically, gastroparesis flare. The patient has not recently seen a physician. Historical: - Allergies: 11:13 Bactrim; ap3 11:13 GABAPENTIN; ap3 11:13 Prednisone; ap3 11:13 Toradol; ap3 11:13 tramadol; ap3 11:13 Ultracet; ap3 11:13 Zofran; ap3 - PMHx: 11:13 diabetes mellitus; Gastroparesis (Hypertensive disord); Hypertensive disorder; ap3 Hypothyroidism; - PSHx: 11:13 section; neck fusion; ap3 - Immunization history:: Client reports having NOT received the Covid vaccine. Flu vaccine is not up to date. - Infectious Disease History:: Denies. - Social history:: Smoking status: Patient reports the use of cigarette tobacco products, smokes 1.5 packs per day. ROS: 11:21 Constitutional: Negative for fever, chills, and weight loss, sb4 11:21 Abdomen/GI: Positive for abdominal pain, nausea and vomiting, 11:21 All other systems are negative, Exam: 11:21 Head/Face: Normocephalic, atraumatic. Eyes: Extra-ocular motions intact. Periorbital sb4 areas with no swelling, redness, or edema. ENT: Mucous membranes moist. Cardiovascular: Regular rate and rhythm with a normal S1 and S2. Respiratory: No increased work of breathing, no retractions or nasal flaring. Skin: Warm, dry with normal turgor. Normal color with no rashes, no lesions, and no evidence of cellulitis. 11:21 Constitutional: The patient appears alert, awake, uncomfortable, 11:21 Abdomen/GI: Inspection: abdomen appears normal, Bowel sounds: normal, Palpation: soft, moderate abdominal tenderness, in the right upper quadrant and left upper quadrant, Vital Signs: 11:12 BP 140 / 71; Pulse 69; Resp 17; Temp 98.7(O); Pulse Ox 100% ; Weight 142.88 kg; Height ap3 5 ft. 11 in. ; Pain 9/10; 14:30 BP 135 / 73; Pulse 65; Resp 16; Pulse Ox 99% on R/A; dd2 15:35 BP 131 / 68; Pulse 67; Resp 16; Temp 98.4; Pulse Ox 98% on R/A; dd2 11:12 Body Mass Index 43.93 (142.88 kg, 180.34 cm) ap3 11:12 Pain Scale: Adult ap3 Lisman Coma Score: 13:21 Eye Response: spontaneous(4). Motor Response: obeys commands(6). Verbal Response: dd2 oriented(5). Total: 15. MDM: 10:37 Medical Screening Exam initiated sb4 14:52 Data reviewed: vital signs, nurses notes, lab test result(s), and as a result, I will sb4 discharge patient. Counseling: I had a detailed discussion with the patient and/or guardian regarding the historical points, exam findings, and any diagnostic results supporting the discharge/admit diagnosis, the presence of at least one elevated blood pressure reading (>120/80) during this emergency department visit, radiology results, the need for outpatient follow up, for definitive care, to return to the emergency department if symptoms worsen or persist or if there are any questions or concerns that arise at home. 12/18 11:18 Order name: CBC with Diff; Complete Time: 12:45 sb4 12/18 11:18 Order name: CMP; Complete Time: 13:05 sb4 12/18 11:18 Order name: Lipase; Complete Time: 13:05 sb4 12/18 11:18 Order name: UDS; Complete Time: 13:07 sb4 12/18 11:29 Order name: Glucose, Ancillary Testing; Complete Time: 11:29 EDMS 12/18 11:18 Order name: IV Saline Lock; Complete Time: 12:37 sb4 12/18 11:18 Order name: Labs collected and sent; Complete Time: 12:37 sb4 12/18 13:47 Order name: PO challenge; Complete Time: 14:20 sb4 Administered Medications: 12:28 Drug: diphenhydrAMINE IVP 25 mg IVP once Route: IVP; Site: right forearm; jl7 12:43 Follow up: Response: No adverse reaction dd2 12:30 Drug: NS 0.9% IV 1000 ml IV at 1 bolus Per protocol; to be given as a bolus over 60 jl7 minutes Route: IV; Rate: 1 bolus; Site: right forearm; 13:30 Follow up: IV Status: Completed infusion; IV Intake: 1000ml dd2 12:30 Drug: Droperidol IVP 2.5 mg IVP once Route: IVP; Site: right forearm; jl7 12:45 Follow up: Response: No adverse reaction dd2 13:13 Drug: metoCLOPramide IVP 10 mg IVP once; over 1 to 2 minutes Route: IVP; Site: right dd2 antecubital; 13:28 Follow up: Response: No adverse reaction dd2 14:26 Drug: Promethazine IVP 25 mg IVP once Route: IVP; Site: right antecubital; dd2 14:41 Follow up: Response: No adverse reaction dd2 15:08 Drug: morphine IVP or IV 4 mg IVP once over 4 mins Route: IVP; Infused Over: 4 mins; dd2 Site: right forearm; 15:23 Follow up: Response: No adverse reaction dd2 Disposition: 17:07 Co-signature as Attending Physician, Rodrick Herrera MD. jj9 Disposition Summary: 12/18/24 15:25 Discharge Ordered Notes: Location: Home sb4 Problem: new sb4 Symptoms: have improved sb4 Condition: Stable sb4 Diagnosis - Upper abdominal pain, unspecified sb4 - Gastroparesis sb4 Followup: sb4 - With: Fracisco Logan MD - When: 1 week - Reason: Recheck today's complaints, Re-evaluation by your physician Discharge Instructions: - Discharge Summary Sheet sb4 - Abdominal Pain, Adult sb4 - Chronic Pain, Adult sb4 - Gastroparesis sb4 Forms: - Patient Portal Instructions sb4 - Leadership Thank You Letter sb4 Signatures: Dispatcher [employer] Porter Lane RN RN jl7 Arti Rooney RN RN ap3 Irma Ritchie PA-C PA-C sb4 NAVA THOMAS RN RN dd2 Rodrick Herrera MD MD [email or web address] Corrections: (The following items were deleted from the chart) 11: 11:19 CBC+H.LAB.BRZ ordered. EDMS EDMS 11: 11:19 COMPREHENSIVE METABOLIC PANEL+C.LAB.BRZ ordered. EDMS EDMS : 11:19 LIPASE+C.LAB.BRZ ordered. EDMS EDMS 11: 11:19 URINE DRUG SCREEN+UC.LAB.BRZ ordered. EDMS EDMS
[2024-12-18 17:59] VITALS: BP 131/68; TEMP 98.4; O2SAT 98
== END 2024-12-18 15:39 | disposition home or self-care (01) ==
LOC: ER 10:25
DX: K31.84 Gastroparesis (principal); F17.210 Nicotine dependence, cigarettes, uncomplicated; R11.2 Nausea with vomiting, unspecified
CPT/HCPCS: 85025; 36415; 82947; 83690; 80053; 80307; J2550; J2765; J1200; J1790; J7030; 99284